=== PATIENT | female | born 1950 | race African-American/Black ===

== ENCOUNTER 2016-09-08 12:32 | Emergency (ER) | payer OTHER, MEDICARE, MEDICAID ==
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
[2016-09-08] MEDS ORDERED: OXYCODONE-ACETAMINOPHEN 5-325 MG TABLET PO ONE (13:27)
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
[2016-09-08 15:02] VITALS: BP 164/92
== END 2016-09-08 15:02 | disposition home or self-care (01) ==
LOC: ER 12:32
DX: M12.88 Other specific arthropathies, not elsewhere classified, other specified site (principal); M54.5 Low back pain; V89.0XXA Person injured in unspecified motor-vehicle accident, nontraffic, initial encounter; E78.00 Pure hypercholesterolemia, unspecified; I10 Essential (primary) hypertension; E11.9 Type 2 diabetes mellitus without complications
CPT/HCPCS: 72110; 99283

== ENCOUNTER → 2016-09-08 | Outpatient (CLI) | payer MEDICARE, MEDICAID ==
[2016-09-08 12:12] LABS: HEMATOCRIT 39.6 % (36.0-47.0); HEMOGLOBIN 12.6 g/dL (12.0-15.5); HGB HCT DIFFERENCE -1.8; MEAN CORPUSCULAR HEMOGLOBIN 26.9 pg (27.0-33.4); MEAN CORPUSCULAR HGB CONC 31.7 g/dL (32.0-36.0); MEAN CORPUSCULAR VOLUME 85 fl (80-97); RED BLOOD COUNT 4.68 10^6/uL (3.72-5.28); RED CELL DISTRIBUTION WIDTH 15.3 % (11.5-14.0); WHITE BLOOD COUNT 9.9 10^3/uL (4.0-10.5)
[2016-09-08 12:32] LABS: ANION GAP 14 (5-19); BLOOD UREA NITROGEN 34 mg/dL (7-20); CALCIUM 9.7 mg/dL (8.4-10.2); CARBON DIOXIDE 20 mmol/L (22-30); CHLORIDE 101 mmol/L (98-107); CREATININE RESULT 1.18 mg/dL (0.52-1.25); POTASSIUM 4.7 mmol/L (3.6-5.0); SODIUM 134.5 mmol/L (137-145)
[2016-09-08 12:35] LABS: APPEARANCE,URINE CLEAR; BILIRUBIN,URINE NEGATIVE (NEGATIVE); GLUCOSE, URINE 150 mg/dL (NEGATIVE); KETONES,URINE NEGATIVE (NEGATIVE); URINE SPECIFIC GRAVITY 1.027
[2016-09-08 12:36] LABS: LEUKOCYTE ESTERASE,URINE NEGATIVE (NEGATIVE); NITRITE,URINE NEGATIVE (NEGATIVE); PROTEIN,URINE >=500 mg/dL (NEGATIVE); UROBILINOGEN,URINE NEGATIVE mg/dL (<2.0)
[2016-09-08 12:55] LABS: RBC,URINE 0-1 /HPF; WBC,URINE 0-1 /HPF
[2016-09-08 12:56] LABS: BACTERIA,URINE TRACE /HPF
[2016-09-08 13:33] LABS: GLUCOSE 465 mg/dL (75-110)
== END ==
LOC: OD 11:20
PROVIDERS: ATTEND Internal Medicine Nephrology
DX: I12.9 Hypertensive chronic kidney disease with stage 1 through stage 4 chronic kidney disease, or unspecified chronic kidney disease (principal); N18.3 Chronic kidney disease, stage 3 (moderate); E11.9 Type 2 diabetes mellitus without complications; R80.9 Proteinuria, unspecified
CPT/HCPCS: 36415; 80048; 81001; 85027

== ENCOUNTER → 2017-01-03 | Outpatient (CLI) | payer MEDICARE, MEDICAID ==
[2017-01-03 13:40] LABS: HEMOGLOBIN 13.1 g/dL (12.0-15.5); HGB HCT DIFFERENCE 0.3; MEAN CORPUSCULAR HEMOGLOBIN 28.3 pg (27.0-33.4); MEAN CORPUSCULAR HGB CONC 33.6 g/dL (32.0-36.0); MEAN CORPUSCULAR VOLUME 84 fl (80-97); RED BLOOD COUNT 4.64 10^6/uL (3.72-5.28); RED CELL DISTRIBUTION WIDTH 15.4 % (11.5-14.0); WHITE BLOOD COUNT 7.4 10^3/uL (4.0-10.5)
[2017-01-03 14:26] LABS: ANION GAP 14 (5-19); BLOOD UREA NITROGEN 38 mg/dL (7-20); CALCIUM 10.4 mg/dL (8.4-10.2); CARBON DIOXIDE 24 mmol/L (22-30); CHLORIDE 106 mmol/L (98-107); CREATININE RESULT 1.06 mg/dL (0.52-1.25); GLUCOSE 153 mg/dL (75-110); POTASSIUM 4.4 mmol/L (3.6-5.0); SODIUM 143.5 mmol/L (137-145)
[2017-01-03 15:18] LABS: APPEARANCE,URINE SLIGHTLY-CLOUDY; BILIRUBIN,URINE NEGATIVE (NEGATIVE); GLUCOSE, URINE 150 mg/dL (NEGATIVE); KETONES,URINE NEGATIVE (NEGATIVE); LEUKOCYTE ESTERASE,URINE NEGATIVE (NEGATIVE); NITRITE,URINE NEGATIVE (NEGATIVE); PROTEIN,URINE 100 mg/dL (NEGATIVE); URINE SPECIFIC GRAVITY 1.013; UROBILINOGEN,URINE NEGATIVE mg/dL (<2.0)
[2017-01-03 23:45] LABS: URINE CREATININE 66.6 mg/dL (15-278); URINE PROTEIN 128.4 mg/dL (<12)
== END ==
LOC: OD 12:42
PROVIDERS: ATTEND Physician Assistant Medical
DX: E11.22 Type 2 diabetes mellitus with diabetic chronic kidney disease (principal); I12.9 Hypertensive chronic kidney disease with stage 1 through stage 4 chronic kidney disease, or unspecified chronic kidney disease; N18.3 Chronic kidney disease, stage 3 (moderate); R80.9 Proteinuria, unspecified
CPT/HCPCS: 36415; 80048; 81001; 82570; 84156; 85027

== ENCOUNTER 2017-02-21 23:55 | Inpatient (IN) | payer MEDICARE, MEDICAID ==
[2017-02-22] MEDS ORDERED: NORMAL SALINE 1000 ML 1,000 ML IV ONE ×2 (00:01→00:26)
[2017-02-22 00:09] LABS: VENOUS BLOOD BASE EXCESS -7.5 mmol/L; VENOUS BLOOD HCO3 17.9 mmol/L (20-32); VENOUS BLOOD PCO2 36.5 mmHg (35-63); VENOUS BLOOD PH 7.31 (7.30-7.42)
[2017-02-22] MEDS ORDERED: ONDANSETRON HCL INJ/PF 4 MG/2 ML SDV IV ONE ×2 (00:15→02:09)
[2017-02-22] MEDS ORDERED: ONDANSETRON HCL INJ/PF 4 MG/2 ML SDV ONE (00:17)
[2017-02-22 00:18] LABS: HEMATOCRIT 44.4 % (36.0-47.0); HEMOGLOBIN 14.3 g/dL (12.0-15.5); HGB HCT DIFFERENCE -1.5; MEAN CORPUSCULAR HGB CONC 32.2 g/dL (32.0-36.0); MEAN CORPUSCULAR VOLUME 84 fl (80-97); RED CELL DISTRIBUTION WIDTH 15.1 % (11.5-14.0); WHITE BLOOD COUNT 12.5 10^3/uL (4.0-10.5)
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
[2017-02-22 00:27] LABS: ALANINE AMINOTRANSFERASE 44 U/L (9-52); ALBUMIN 4.5 g/dL (3.5-5.0); ALKALINE PHOSPHATASE 85 U/L (38-126); ASPARTATE AMINO TRANSFERASE 24 U/L (14-36); BILIRUBIN,DIRECT 0.5 mg/dL (0.0-0.4); BILIRUBIN,TOTAL 0.5 mg/dL (0.2-1.3); BLOOD UREA NITROGEN 28 mg/dL (7-20); CREATINE KINASE 436 U/L (30-135); CREATININE RESULT 1.67 mg/dL (0.52-1.25); GLUCOSE 340 mg/dL (75-110); POTASSIUM 3.9 mmol/L (3.6-5.0); TOTAL PROTEIN 7.7 g/dL (6.3-8.2)
[2017-02-22 00:29] LABS: ALCOHOL < 10 mg/dL (NONE DETECTED)
[2017-02-22 00:36] LABS: CARBON DIOXIDE 17 mmol/L (22-30); CHLORIDE 98 mmol/L (98-107); SODIUM 138.4 mmol/L (137-145)
[2017-02-22 00:37] LABS: ANION GAP 23 (5-19)
[2017-02-22 00:40] LABS: ABSOLUTE EOSINOPHILS# (MANUAL) 0.4 10^3/uL (0.0-0.6); BASOPHILS % (MANUAL) 1 % (0-2); EOSINOPHILS % (MANUAL) 3 % (0-6); TOTAL CELLS COUNTED 100
[2017-02-22 00:48] LABS: ANISOCYTOSIS SLIGHT; PLATELET CLUMPS PRESENT; TOXIC VACUOLATION PRESENT
[2017-02-22 00:51] LABS: POIKILOCYTOSIS SLIGHT; TEAR DROP CELLS SLIGHT
[2017-02-22 01:02] LABS: LYMPHOCYTES % (MANUAL) 70 % (13-45)
[2017-02-22 01:06] LABS: AMORPHOUS SEDIMENT,URINE TRACE /HPF; APPEARANCE,URINE SLIGHTLY-CLOUDY; BILIRUBIN,URINE NEGATIVE (NEGATIVE); GLUCOSE, URINE >=500 mg/dL (NEGATIVE); KETONES,URINE NEGATIVE (NEGATIVE); LEUKOCYTE ESTERASE,URINE NEGATIVE (NEGATIVE); NITRITE,URINE NEGATIVE (NEGATIVE); PROTEIN,URINE >=500 mg/dL (NEGATIVE); URINE SPECIFIC GRAVITY 1.026; UROBILINOGEN,URINE NEGATIVE mg/dL (<2.0)
--- NOTE | 2017-02-22 01:06 | RADIOLOGY REPORT (SQ) ---
EXAM DESCRIPTION: CHEST SINGLE VIEW CLINICAL HISTORY: 66 years, Female, altered syncope COMPARISON: None. NUMBER OF VIEWS: 1. TECHNIQUE: Frontal LIMITATIONS: None. FINDINGS: Moderate lung volumes. Prominent interstitium. Normal cardiac silhouette size. Intact bony thorax. Stable. IMPRESSION: No acute cardiopulmonary findings. 2011 [facility] [employer]- All Rights Reserved
--- NOTE | 2017-02-22 01:11 | RADIOLOGY REPORT (SQ) ---
EXAM DESCRIPTION: CT HEAD WITHOUT CLINICAL HISTORY: 66 years Female, altered mental status COMPARISON: None. TECHNIQUE: No contrast, This exam was performed according to our departmental dose-optimization program, which includes automated exposure control, adjustment of the mA and/or kV according to patient size and/or use of iterative reconstruction technique. FINDINGS: Brain parenchyma appears intact. No evidence of mass, mass effect, or midline shift. No hemorrhage or infarct. Extra-axial structures are unremarkable. IMPRESSION: No acute findings.
[2017-02-22 01:30] LABS: URINE BARBITURATES SCREEN NEGATIVE; URINE METHADONE SCREEN NEGATIVE; URINE OPIATES LOW NEGATIVE; URINE PHENCYCLIDINE SCREEN NEGATIVE
--- NOTE | 2017-02-22 03:34 | RADIOLOGY REPORT (SQ) ---
EXAM DESCRIPTION: CTA ABDOMEN/PELVIS W WO (accession [id number]), CTA CHEST (accession [id number]) CLINICAL HISTORY: 66 years Female, hypotension, flank pain, syncope COMPARISON: None. TECHNIQUE: 100 mL Omnipaque 300 IV contrast. This exam was performed according to our departmental dose-optimization program, which includes automated exposure control, adjustment of the mA and/or kV according to patient size and/or use of iterative reconstruction technique. FINDINGS: Small patchiness of bilateral lower lung barnhart with a 0.5 mm nodularity at the superior segment of the right lower lobe, image 32 of series 3. No evidence of pulmonary embolus. No significant pleural effusion or ascites. No obstruction. No evidence of appendicitis. Appendix is not discerned. CTA evaluation of the chest and abdomen is unremarkable including the pulmonary arteries, aorta, renal arteries, celiac, SMA, and LORRI. Inferior neck, axillae, mediastinum, liver, spleen, adrenals, pancreas, gallbladder, renal system, pelvic organs, vasculature, lymphatics, and mild disc desiccation appear otherwise unremarkable. Small coronary arterial calcification. IMPRESSION: 1. Minimal right lower lobar patchiness and nonsolid nodularity measuring up to 0.5 cm may indicate atypical pneumonia or atelectasis. Contrast CT chest surveillance recommended in three months. 2. Otherwise unremarkable contrast CTA of the chest, abdomen, and pelvis.
--- NOTE | 2017-02-22 03:34 | RADIOLOGY REPORT (SQ) ---
EXAM DESCRIPTION: CTA ABDOMEN/PELVIS W WO (accession [id number]), CTA CHEST (accession [id number]) CLINICAL HISTORY: 66 years Female, hypotension, flank pain, syncope COMPARISON: None. TECHNIQUE: 100 mL Omnipaque 300 IV contrast. This exam was performed according to our departmental dose-optimization program, which includes automated exposure control, adjustment of the mA and/or kV according to patient size and/or use of iterative reconstruction technique. FINDINGS: Small patchiness of bilateral lower lung barnhart with a 0.5 mm nodularity at the superior segment of the right lower lobe, image 32 of series 3. No evidence of pulmonary embolus. No significant pleural effusion or ascites. No obstruction. No evidence of appendicitis. Appendix is not discerned. CTA evaluation of the chest and abdomen is unremarkable including the pulmonary arteries, aorta, renal arteries, celiac, SMA, and LORRI. Inferior neck, axillae, mediastinum, liver, spleen, adrenals, pancreas, gallbladder, renal system, pelvic organs, vasculature, lymphatics, and mild disc desiccation appear otherwise unremarkable. Small coronary arterial calcification. IMPRESSION: 1. Minimal right lower lobar patchiness and nonsolid nodularity measuring up to 0.5 cm may indicate atypical pneumonia or atelectasis. Contrast CT chest surveillance recommended in three months. 2. Otherwise unremarkable contrast CTA of the chest, abdomen, and pelvis.
[2017-02-22] MEDS ORDERED: NALOXONE HCL INJ/PF 0.4 MG/1 ML SDV ONE (04:11)
[2017-02-22] MEDS ORDERED: GLUCAGON,HUMAN RECOMB 1 MG INJ IM PRN (04:35)
[2017-02-22] MEDS ORDERED: INSULIN REG, HUMAN 100 UNIT/ML 3 ML VIAL (PYX) IV ONE (04:35)
[2017-02-22] MEDS ORDERED: DEXTROSE 40% GEL 15 GM TUBE PO PRN ×2 (04:35)
[2017-02-22] MEDS ORDERED: DEXTROSE 50%-WATER 25 GM/50 ML DISP.SYRIN IV PRN ×2 (04:35)
[2017-02-22] MEDS ORDERED: POLYETHYLENE GLYCOL PO PRN (04:36)
[2017-02-22] MEDS ORDERED: MAG HYDROX/AL HYDROX/SIMETH SUSP 30 ML UDCUP PO PRN ×2 (04:39→07:30)
[2017-02-22] MEDS ORDERED: MAGNESIUM HYDROXIDE SUSP 30 ML UDCUP PO PRN ×2 (04:39→07:30)
[2017-02-22] MEDS ORDERED: ACETAMINOPHEN 325 MG TABLET PO PRN ×2 (04:39→07:30)
[2017-02-22] MEDS ORDERED: NALOXONE HCL INJ/PF 0.4 MG/1 ML SDV IV ONE (04:42)
[2017-02-22] MEDS ORDERED: NORMAL SALINE 1000 ML 1,000 ML IV SCH (04:45)
--- NOTE | 2017-02-22 05:04 | PDOC H&P ---
History of Present Illness Admission Date/PCP: BRENNEN CHRISTIAN MD Patient complains of: Altered mental status History of Present Illness: EDUARDA JARRELL is a 66 year old female with a past medical history of insulin dependent diabetes, asthma, hypertension and chronic pain. Patient presents with altered mental status and difficulty walking, she arrives to the emergency room with syncope. She is found lethargic, oriented 1 to have a blood pressure of 87/48, acute renal failure and hyperglycemia. She receives 2 L of normal saline resulting in systolic pressure greater than 100 and able to answer questions. She denies fever, neck stiffness, photophobia or headache. No cough, shortness of breath or chest pain. She is in no acute distress, and reveals refilling medications earlier in the day. There are no witnesses available for questioning. Past Medical History Cardiac Medical History: Reports: Hyperlipidema, Hypertension Pulmonary Medical History: Reports: Asthma Denies: Tuberculosis Endocrine Medical History: Reports: Diabetes Mellitus Type 1, Diabetes Mellitus Type 2 Psychiatric Medical History: Reports: Depression Denies: Alcohol Dependency, Tobacco Dependency Hematology: Denies: Anemia, Sickle Cell Disease Past Surgical History Past Surgical History: Reports: Appendectomy, Section - x2 Denies: Amputation Social History Information Source: Patient, [facility] Records Lives with: Spouse/Significant other Smoking Status: Unknown if Ever Smoked Frequency of Alcohol Use: None Hx Recreational Drug Use: No Drugs: None Hx Prescription Drug Abuse: No - Advance Directive Resuscitation Status: Full Code Family History Family History: CAD, COPD, DM Parental Family History Reviewed: Yes Children Family History Reviewed: Yes Sibling(s) Family History Reviewed.: Yes Medication/Allergy Home Medications: Duloxetine HCl 30 mg PO DAILY 04/03/15 Gabapentin 800 mg PO DAILY 04/03/15 Insulin Glargine,Hum.rec.anlog [Lantus Solostar] 60 unit SQ BID 04/03/15 Insulin Lispro [Humalog] 20 unit SQ ACBRKFST 04/03/15 Insulin Lispro [Humalog] 20 unit SQ ACLUNCH 04/03/15 Insulin Lispro [Humalog] 20 unit SQ ACSUPPER 04/03/15 Lisinopril 20 mg PO DAILY 04/03/15 Omeprazole [Prilosec] 40 mg PO DAILY 04/03/15 Oxycodone HCl [Oxycodone HCl 10 MG Tablet] 10 mg PO TID PRN 04/03/15 Polyethylene Glycol 3350 [Miralax] 527 gm PO DAILY PRN 04/03/15 Rosuvastatin Calcium [Crestor 10 mg Tablet] 10 mg PO DAILY 04/03/15 Atorvastatin Calcium [Lipitor 20 mg Tablet] 20 mg PO QHS #30 tablet 04/07/15 Diclofenac Sodium [Voltaren] 75 mg PO DAILY #0 04/07/15 Docusate Sodium [Colace 100 mg Capsule] 100 mg PO DAILY #60 capsule 04/07/15 Furosemide [Lasix 40 mg Tablet] 40 mg PO DAILY #60 tablet 04/07/15 Spironolactone [Aldactone 25 mg Tablet] 12.5 mg PO DAILY #30 tablet 04/07/15 Allergies/Adverse Reactions: No Known Allergies Allergy (Verified 09/08/16 12:50) Review of Systems Constitutional: ABSENT: chills, fever(s), headache(s), weight gain, weight loss Eyes: ABSENT: visual disturbances Ears: ABSENT: hearing changes Cardiovascular: ABSENT: chest pain, dyspnea on exertion, edema, orthropnea, palpitations Respiratory: ABSENT: cough, hemoptysis Gastrointestinal: PRESENT: constipation. ABSENT: abdominal pain, diarrhea, hematemesis, hematochezia, nausea, vomiting Genitourinary: ABSENT: dysuria, hematuria Musculoskeletal: PRESENT: other - Bilateral knee pain. ABSENT: joint swelling Integumentary: ABSENT: rash, wounds Neurological: ABSENT: abnormal gait, abnormal speech, confusion, dizziness, focal weakness, syncope Psychiatric: ABSENT: anxiety, depression, homidical ideation, suicidal ideation Endocrine: ABSENT: cold intolerance, heat intolerance, polydipsia, polyuria Hematologic/Lymphatic: ABSENT: easy bleeding, easy bruising Physical Exam Vital Signs: Temp Pulse Resp BP Pulse Ox 24 H 117/64 92 02/22/17 02:16 02/22/17 02:33 02/22/17 02:33 Intake & Output 02/20/17 02/21/17 02/22/17 11:59 11:59 11:59 Weight 91.8 kg General appearance: PRESENT: cooperative, disheveled, mild distress Head exam: PRESENT: atraumatic, normocephalic Eye exam: PRESENT: conjunctiva pink, EOMI, PERRLA. ABSENT: scleral icterus Ear exam: PRESENT: normal external ear exam Mouth exam: PRESENT: dry mucosa, tongue midline Neck exam: PRESENT: full ROM. ABSENT: carotid bruit, JVD, lymphadenopathy, meningismus, tenderness, thyromegaly Respiratory exam: PRESENT: crackles, prolonged expiratory phas, symmetrical. ABSENT: rales, rhonchi, wheezes Cardiovascular exam: PRESENT: RRR. ABSENT: diastolic murmur, rubs, systolic murmur Pulses: PRESENT: normal dorsalis pedis pul Vascular exam: PRESENT: normal capillary refill GI/Abdominal exam: PRESENT: diminished bowel sounds, hypoactive bowel sounds, normal bowel sounds, soft, tenderness - Left lower quadrant tenderness without guarding. ABSENT: distended, guarding, mass, organolmegaly, rebound Rectal exam: PRESENT: deferred Extremities exam: PRESENT: full ROM. ABSENT: calf tenderness, clubbing, pedal edema Neurological exam: PRESENT: altered, oriented to person, CN II-XII grossly intact. ABSENT: aphasic Skin exam: PRESENT: dry, intact, warm. ABSENT: cyanosis, rash Results Laboratory Results: 02/21/17 23:55 02/21/17 23:55 02/21/17 02/21/17 02/21/17 23:55 23:55 23:55 WBC 12.5 H RBC 5.30 H Hgb 14.3 Hct 44.4 MCV 84 MCH 27.0 MCHC 32.2 RDW 15.1 H Plt Count 255 Seg Neutrophils % Not Reportable Lymphocytes % Not Reportable Monocytes % Not Reportable Eosinophils % Not Reportable Basophils % Not Reportable Absolute Neutrophils Not Reportable Absolute Lymphocytes Not Reportable Absolute Monocytes Not Reportable Absolute Eosinophils Not Reportable Absolute Basophils Not Reportable VBG pH 7.31 VBG pCO2 36.5 VBG HCO3 17.9 L VBG Base Excess -7.5 Sodium 138.4 Potassium 3.9 Chloride 98 Carbon Dioxide 17 L Anion Gap 23 H BUN 28 H Creatinine 1.67 H Est GFR ( Amer) 37 L Est GFR (Non-Af Amer) 31 L Glucose 340 H Calcium 11.0 H Total Bilirubin 0.5 AST 24 ALT 44 Alkaline Phosphatase 85 Total Protein 7.7 Albumin 4.5 Urine Color Urine Appearance Urine pH Ur Specific [place] Urine Protein Urine Glucose (UA) Urine Ketones Urine Blood Urine Nitrite Ur Leukocyte Esterase Urine WBC (Auto) Urine RBC (Auto) 02/22/17 00:43 WBC RBC Hgb Hct MCV MCH MCHC RDW Plt Count Seg Neutrophils % Lymphocytes % Monocytes % Eosinophils % Basophils % Absolute Neutrophils Absolute Lymphocytes Absolute Monocytes Absolute Eosinophils Absolute Basophils VBG pH VBG pCO2 VBG HCO3 VBG Base Excess Sodium Potassium Chloride Carbon Dioxide Anion Gap BUN Creatinine Est GFR ( Amer) Est GFR (Non-Af Amer) Glucose Calcium Total Bilirubin AST ALT Alkaline Phosphatase Total Protein Albumin Urine Color YELLOW Urine Appearance SLIGHTLY-CLOUDY Urine pH 5.0 Ur Specific [place] 1.026 Urine Protein >=500 H Urine Glucose (UA) >=500 H Urine Ketones NEGATIVE Urine Blood SMALL H Urine Nitrite NEGATIVE Ur Leukocyte Esterase NEGATIVE Urine WBC (Auto) 5 Urine RBC (Auto) 3 02/21/17 02/21/17 23:55 23:55 Creatine Kinase 436 H Troponin I 0.024 Impressions: Head CT 02/21/17 23:59 IMPRESSION: No acute findings. Chest X-Ray 02/22/17 00:01 IMPRESSION: No acute cardiopulmonary findings. [facility] [employer]- All Rights Reserved Abdomen/Pelvis CTA 02/22/17 01:19 IMPRESSION: 1. Minimal right lower lobar patchiness and nonsolid nodularity measuring up to 0.5 cm may indicate atypical pneumonia or atelectasis. Contrast CT chest surveillance recommended in three months. 2. Otherwise unremarkable contrast CTA of the chest, abdomen, and pelvis. Chest/Abdomen CTA 02/22/17 01:19 IMPRESSION: 1. Minimal right lower lobar patchiness and nonsolid nodularity measuring up to 0.5 cm may indicate atypical pneumonia or atelectasis. Contrast CT chest surveillance recommended in three months. 2. Otherwise unremarkable contrast CTA of the chest, abdomen, and pelvis. Assessment & Plan - Diagnosis (1) Acute encephalopathy Is this a current diagnosis for this admission?: Yes Plan: Likely medication adverse reaction, hypotension with artifact patient appears intoxicated, urinalysis unremarkable trial Narcan consider Romazicon as needed, supportive measures and obtain medication reconciliation. (2) Diabetic ketoacidosis Is this a current diagnosis for this admission?: Yes Plan: Differential includes H ON K, will obtain osmolarity, serial chemistries, normal saline, electrolyte and insulin repletion. Education (3) Atypical pneumonia Is this a current diagnosis for this admission?: Yes Plan: Likely viral given lymphocyte shift, supportive measures, albuterol and Atrovent , (4) Chronic pain Is this a current diagnosis for this admission?: Yes Plan: Limit narcotics given encephalopathy. (5) Hypotension Qualifiers: Hypotension type: unspecified hypotension type Qualified Code(s): I95.9 - Hypotension, unspecified Is this a current diagnosis for this admission?: Yes Plan: Likely secondary to medication adverse reaction, nontoxic-appearing, unremarkable cardiac enzymes. IV fluid challenge and reevaluation. (6) Acute renal failure Is this a current diagnosis for this admission?: Yes Plan: Likely secondary to hypotension, gated by diabetes with proteinuria. Rehydration and reevaluation of chemistry consider nephrology consult. - Time Time Spent: 50 to 70 Minutes - Inpatient Certification Medical Necessity: Need Close Monitoring Due to Risk of Patient Decompensation
[2017-02-22 05:14] LABS: ABSOLUTE EOSINOPHILS # (AUTO) 0.1 10^3/uL (0.0-0.6); ABSOLUTE LYMPHOCYTES (AUTO) 1.9 10^3/uL (0.5-4.7); ABSOLUTE MONOCYTES (AUTO) 0.7 10^3/uL (0.1-1.4); ABSOLUTE NEUT (AUTO) 5.1 10^3/uL (1.7-8.2); BASOPHILS % (AUTO) 0.5 % (0-2); EOSINOPHILS % (AUTO) 0.9 % (0-6); HEMATOCRIT 39.8 % (36.0-47.0); HEMOGLOBIN 13.1 g/dL (12.0-15.5); HGB HCT DIFFERENCE -0.5; LYMPHOCYTES % (AUTO) 24.3 % (13-45); MEAN CORPUSCULAR HEMOGLOBIN 27.1 pg (27.0-33.4); MEAN CORPUSCULAR HGB CONC 32.8 g/dL (32.0-36.0); MEAN CORPUSCULAR VOLUME 83 fl (80-97); MONOCYTES % (AUTO) 8.5 % (3-13); RED BLOOD COUNT 4.81 10^6/uL (3.72-5.28); RED CELL DISTRIBUTION WIDTH 14.9 % (11.5-14.0); SEGMENTED NEUTROPHILS % (AUTO) 65.8 % (42-78); WHITE BLOOD COUNT 7.8 10^3/uL (4.0-10.5)
[2017-02-22] MEDS ORDERED: POLYETHYLENE GLYCOL 3350 POWDER 17 GM/1 PACKET PO PRN (05:15)
[2017-02-22 05:28] LABS: ALANINE AMINOTRANSFERASE 47 U/L (9-52); ALBUMIN 3.5 g/dL (3.5-5.0); ALKALINE PHOSPHATASE 81 U/L (38-126); ANION GAP 10 (5-19); ASPARTATE AMINO TRANSFERASE 26 U/L (14-36); BILIRUBIN,DIRECT 0.4 mg/dL (0.0-0.4); BILIRUBIN,TOTAL 0.4 mg/dL (0.2-1.3); BLOOD UREA NITROGEN 27 mg/dL (7-20); CALCIUM 9.8 mg/dL (8.4-10.2); CARBON DIOXIDE 23 mmol/L (22-30); CHLORIDE 104 mmol/L (98-107); CREATININE RESULT 1.23 mg/dL (0.52-1.25); GLUCOSE 194 mg/dL (75-110); MAGNESIUM 2.5 mg/dL (1.6-2.3); POTASSIUM 4.3 mmol/L (3.6-5.0); SODIUM 137.3 mmol/L (137-145); TOTAL PROTEIN 6.3 g/dL (6.3-8.2)
[2017-02-22] MEDS ORDERED: NALOXONE HCL INJ 2 MG/2 ML DISP.SYRIN IV ONE (06:22)
[2017-02-22] MEDS ORDERED: NALOXONE HCL INJ 2 MG/2 ML DISP.SYRIN ONE (06:24)
[2017-02-22] MEDS ORDERED: NALOXONE HCL INJ 2 MG/2 ML DISP.SYRIN IV PRN (06:50)
[2017-02-22] MEDS: HEPARIN SOD (PORCINE) 5,000 UNIT/ML 1 ML SYRINGE SUBCUT SCH ×3 (06:57→22:07)
[2017-02-22] MEDS ORDERED: INSULIN LISPRO 15 UNIT SQ SCH ×3 (08:00→16:00)
[2017-02-22] MEDS: IPRATROPIUM/ALBUTEROL 0.5-2.5 MG/3 ML AMPUL NEB SCH ×3 (08:21→23:53)
--- NOTE | 2017-02-22 09:20 | EKG REPORT ---
SEVERITY:- ABNORMAL ECG - SINUS RHYTHM LEFT BUNDLE BRANCH BLOCK : Confirmed by: Renzo Ashraf 22-Feb-2017 09:19:49
[2017-02-22] MEDS ORDERED: (PENDING PHARMACY ID) (Lisinopril [Lisinopril] 20 MG) PO SCH (10:00)
[2017-02-22] MEDS: DOCUSATE SODIUM 100 MG CAPSULE PO SCH (10:18)
[2017-02-22] MEDS: LISINOPRIL 10 MG TABLET PO SCH (10:18)
[2017-02-22] MEDS: INSULIN LISPRO 100 UNIT/ML 3 ML VIAL SUBCUT SCH (10:18)
[2017-02-22] MEDS: INSULIN GLARGINE,HUM.REC.ANLOG 300 UNIT/3 ML INSULN.PEN SUBCUT SCH ×2 (10:19→17:15)
[2017-02-22] MEDS ORDERED: INSULIN LISPRO 100 UNIT/ML 3 ML VIAL SUBCUT SCH ×2 (11:00→16:00)
[2017-02-22 11:28] LABS: ANION GAP 12 (5-19); BLOOD UREA NITROGEN 21 mg/dL (7-20); CALCIUM 8.9 mg/dL (8.4-10.2); CARBON DIOXIDE 21 mmol/L (22-30); CHLORIDE 103 mmol/L (98-107); CREATININE RESULT 1.04 mg/dL (0.52-1.25); POTASSIUM 4.2 mmol/L (3.6-5.0); SODIUM 135.7 mmol/L (137-145)
[2017-02-22 11:40] LABS: GLUCOSE 412 mg/dL (75-110)
[2017-02-22 16:03] LABS: ANION GAP 11 (5-19); BLOOD UREA NITROGEN 21 mg/dL (7-20); CALCIUM 8.7 mg/dL (8.4-10.2); CARBON DIOXIDE 22 mmol/L (22-30); CHLORIDE 106 mmol/L (98-107); CREATININE RESULT 1.16 mg/dL (0.52-1.25); GLUCOSE 395 mg/dL (75-110); SODIUM 138.5 mmol/L (137-145)
[2017-02-22] MEDS: INSULIN LISPRO 100 UNIT/ML 3 ML VIAL SUBCUT PRN ×2 (16:50→22:07)
[2017-02-22 21:12] LABS: ANION GAP 11 (5-19); BLOOD UREA NITROGEN 25 mg/dL (7-20); CALCIUM 8.9 mg/dL (8.4-10.2); CARBON DIOXIDE 20 mmol/L (22-30); CHLORIDE 106 mmol/L (98-107); CREATININE RESULT 1.19 mg/dL (0.52-1.25); POTASSIUM 4.4 mmol/L (3.6-5.0); SODIUM 136.5 mmol/L (137-145)
[2017-02-22 21:31] LABS: GLUCOSE 484 mg/dL (75-110)
[2017-02-22] MEDS: ATORVASTATIN CALCIUM 20 MG TABLET PO SCH (22:08)
[2017-02-23 01:09] LABS: ANION GAP 8 (5-19); BLOOD UREA NITROGEN 25 mg/dL (7-20); CALCIUM 9.2 mg/dL (8.4-10.2); CARBON DIOXIDE 22 mmol/L (22-30); CHLORIDE 106 mmol/L (98-107); POTASSIUM 4.1 mmol/L (3.6-5.0); SODIUM 135.9 mmol/L (137-145)
[2017-02-23 01:20] LABS: GLUCOSE 404 mg/dL (75-110)
[2017-02-23] MEDS: INSULIN LISPRO 100 UNIT/ML 3 ML VIAL SUBCUT PRN ×4 (02:02→16:48)
[2017-02-23] MEDS: HEPARIN SOD (PORCINE) 5,000 UNIT/ML 1 ML SYRINGE SUBCUT SCH ×3 (05:41→22:43)
[2017-02-23 05:43] LABS: ABSOLUTE BASOPHILS # (AUTO) 0.1 10^3/uL (0.0-0.2); ABSOLUTE EOSINOPHILS # (AUTO) 0.3 10^3/uL (0.0-0.6); ABSOLUTE LYMPHOCYTES (AUTO) 2.9 10^3/uL (0.5-4.7); ABSOLUTE MONOCYTES (AUTO) 0.4 10^3/uL (0.1-1.4); ABSOLUTE NEUT (AUTO) 2.1 10^3/uL (1.7-8.2); BASOPHILS % (AUTO) 1.1 % (0-2); EOSINOPHILS % (AUTO) 4.7 % (0-6); HEMATOCRIT 37.5 % (36.0-47.0); HEMOGLOBIN 12.3 g/dL (12.0-15.5); HGB HCT DIFFERENCE -0.6; LYMPHOCYTES % (AUTO) 50.9 % (13-45); MEAN CORPUSCULAR HEMOGLOBIN 27.6 pg (27.0-33.4); MEAN CORPUSCULAR HGB CONC 32.8 g/dL (32.0-36.0); MEAN CORPUSCULAR VOLUME 84 fl (80-97); MONOCYTES % (AUTO) 6.6 % (3-13); RED BLOOD COUNT 4.46 10^6/uL (3.72-5.28); RED CELL DISTRIBUTION WIDTH 15.4 % (11.5-14.0); SEGMENTED NEUTROPHILS % (AUTO) 36.7 % (42-78); WHITE BLOOD COUNT 5.6 10^3/uL (4.0-10.5)
[2017-02-23 06:07] LABS: ANION GAP 9 (5-19); BLOOD UREA NITROGEN 23 mg/dL (7-20); CALCIUM 9.1 mg/dL (8.4-10.2); CARBON DIOXIDE 23 mmol/L (22-30); CHLORIDE 107 mmol/L (98-107); CREATININE RESULT 1.14 mg/dL (0.52-1.25); GLUCOSE 339 mg/dL (75-110); MAGNESIUM 2.3 mg/dL (1.6-2.3); POTASSIUM 3.7 mmol/L (3.6-5.0); SODIUM 139.3 mmol/L (137-145)
[2017-02-23] MEDS: IPRATROPIUM/ALBUTEROL 0.5-2.5 MG/3 ML AMPUL NEB SCH ×3 (08:16→23:22)
[2017-02-23] MEDS: INSULIN LISPRO 100 UNIT/ML 3 ML VIAL SUBCUT SCH ×2 (08:52→16:47)
[2017-02-23 09:45] LABS: ANION GAP 13 (5-19); BLOOD UREA NITROGEN 21 mg/dL (7-20); CALCIUM 9.2 mg/dL (8.4-10.2); CARBON DIOXIDE 21 mmol/L (22-30); CHLORIDE 106 mmol/L (98-107); CREATININE RESULT 1.02 mg/dL (0.52-1.25); POTASSIUM 4.3 mmol/L (3.6-5.0); SODIUM 140.2 mmol/L (137-145)
[2017-02-23 10:00] LABS: GLUCOSE 446 mg/dL (75-110)
[2017-02-23] MEDS: INSULIN GLARGINE,HUM.REC.ANLOG 300 UNIT/3 ML INSULN.PEN SUBCUT SCH (10:11)
[2017-02-23] MEDS: LISINOPRIL 10 MG TABLET PO SCH (10:12)
[2017-02-23] MEDS: DOCUSATE SODIUM 100 MG CAPSULE PO SCH (10:12)
[2017-02-23] MEDS ORDERED: FUROSEMIDE 40 MG TABLET PO ONE (12:45)
--- NOTE | 2017-02-23 12:49 | PDOC PROGRESS REPORT ---
Subjective Progress Note for:: 02/23/17 Subjective:: Patient relates that wants her water pill to be put back. Admits has been having high blood sugars at home. Would go up to the 400s ROS All organ systems evaluated and negative except as in subjective All significant laboratories and diagnostics have been reviewed Reason For Visit: ENCEPHALOPATHY, ATYPICAL PNA, DKA, ARF CHRONIC Physical Exam Vital Signs: Temp Pulse Resp BP Pulse Ox 98.6 F 83 16 131/64 H 99 02/23/17 04:14 02/23/17 04:14 02/23/17 04:14 02/23/17 04:14 02/23/17 04:14 Intake & Output 02/21/17 02/22/17 02/23/17 06:59 06:59 06:59 Intake Total 487 Output Total 450 Balance 37 Weight 96.1 kg General appearance: PRESENT: no acute distress, cooperative, morbidly obese Head exam: PRESENT: atraumatic, normocephalic Eye exam: PRESENT: EOMI, PERRLA Ear exam: PRESENT: normal external ear exam, TM's normal bilaterally Mouth exam: PRESENT: moist Neck exam: PRESENT: full ROM. ABSENT: JVD, tenderness Respiratory exam: ABSENT: clear to auscultation rodrigue Cardiovascular exam: PRESENT: RRR. ABSENT: diastolic murmur, systolic murmur Vascular exam: PRESENT: normal capillary refill GI/Abdominal exam: PRESENT: normal bowel sounds, soft. ABSENT: ascites, distended, tenderness Extremities exam: ABSENT: joint swelling, pedal edema Neurological exam: PRESENT: alert, oriented to person, oriented to place, oriented to time, CN II-XII grossly intact Psychiatric exam: PRESENT: appropriate affect, normal mood Skin exam: PRESENT: normal color Results Laboratory Results: 02/23/17 04:45 02/23/17 04:45 02/22/17 02/22/17 02/22/17 11:06 15:30 20:45 WBC RBC Hgb Hct MCV MCH MCHC RDW Plt Count Seg Neutrophils % Lymphocytes % Monocytes % Eosinophils % Basophils % Absolute Neutrophils Absolute Lymphocytes Absolute Monocytes Absolute Eosinophils Absolute Basophils Sodium 135.7 L 138.5 136.5 L Potassium 4.2 4.0 4.4 Chloride 103 106 106 Carbon Dioxide 21 L 22 20 L Anion Gap 12 11 11 BUN 21 H 21 H 25 H Creatinine 1.04 1.16 1.19 Est GFR ( Amer) > 60 57 L 55 L Est GFR (Non-Af Amer) 53 L 47 L 46 L Glucose 412 H* 395 H 484 H* Calcium 8.9 8.7 8.9 Magnesium 02/23/17 02/23/17 02/23/17 00:48 04:45 04:45 WBC 5.6 RBC 4.46 Hgb 12.3 Hct 37.5 MCV 84 MCH 27.6 MCHC 32.8 RDW 15.4 H Plt Count 184 Seg Neutrophils % 36.7 L Lymphocytes % 50.9 H Monocytes % 6.6 Eosinophils % 4.7 Basophils % 1.1 Absolute Neutrophils 2.1 Absolute Lymphocytes 2.9 Absolute Monocytes 0.4 Absolute Eosinophils 0.3 Absolute Basophils 0.1 Sodium 135.9 L 139.3 Potassium 4.1 3.7 Chloride 106 107 Carbon Dioxide 22 23 Anion Gap 8 9 BUN 25 H 23 H Creatinine 1.20 1.14 Est GFR ( Amer) 55 L 58 L Est GFR (Non-Af Amer) 45 L 48 L Glucose 404 H* 339 H Calcium 9.2 9.1 Magnesium 2.3 Impressions: Head CT 02/21/17 23:59 IMPRESSION: No acute findings. Chest X-Ray 02/22/17 00:01 IMPRESSION: No acute cardiopulmonary findings. 2011 [employer]- All Rights Reserved Abdomen/Pelvis CTA 02/22/17 01:19 IMPRESSION: 1. Minimal right lower lobar patchiness and nonsolid nodularity measuring up to 0.5 cm may indicate atypical pneumonia or atelectasis. Contrast CT chest surveillance recommended in three months. 2. Otherwise unremarkable contrast CTA of the chest, abdomen, and pelvis. Chest/Abdomen CTA 02/22/17 01:19 IMPRESSION: 1. Minimal right lower lobar patchiness and nonsolid nodularity measuring up to 0.5 cm may indicate atypical pneumonia or atelectasis. Contrast CT chest surveillance recommended in three months. 2. Otherwise unremarkable contrast CTA of the chest, abdomen, and pelvis. Assessment & Plan - Diagnosis (1) Uncontrolled diabetes mellitus Qualifiers: Diabetes mellitus type: type 2 Diabetes mellitus complication status: with hyperglycemia Diabetes mellitus fdc insulin use: with termite technician use Qualified Code(s): E11.65 - Type 2 diabetes mellitus with hyperglycemia; Z79.4 - intermediate teacher (current) use of insulin; Z79.4 - intermediate teacher (current) use of insulin ; Z79.4 - custodial (current) use of insulin; Z79.4 - intermediate teacher (current) use of insulin Is this a current diagnosis for this admission?: Yes Plan: Appears to be long-standing problem. Will increase Lantus and Humalog dose. Will change bedside glucose 2 every 4 hours and will continue with sliding scale (2) Acute encephalopathy Is this a current diagnosis for this admission?: Yes (3) Acute renal failure Qualifiers: Acute renal failure type: unspecified Qualified Code(s): N17.9 - Acute kidney failure, unspecified Is this a current diagnosis for this admission?: Yes Plan: Likely secondary to hypotension and dehydration in the setting of uncontrolled diabetes mellitus. Improved. Trend (4) Atypical pneumonia Is this a current diagnosis for this admission?: Yes (5) Chronic pain Qualifiers: Chronic pain type: chronic pain syndrome Qualified Code(s): G89.4 - Chronic pain syndrome Is this a current diagnosis for this admission?: Yes Plan: Patient alleges that she has not been taking more medication than usual. (6) Hypotension Qualifiers: Hypotension type: unspecified hypotension type Qualified Code(s): I95.9 - Hypotension, unspecified Is this a current diagnosis for this admission?: Yes (7) Hypoxia Is this a current diagnosis for this admission?: Yes Plan: Resolved. Discontinue oxygen. Patient states that she does not use oxygen at home. Hypoxia seem to be acute and likely due to opioid use (8) Metabolic acidosis Is this a current diagnosis for this admission?: Yes Plan: Patient not in DKA and likely since procuring may be due to renal tubular acidosis (9) Episode of syncope Qualifiers: Syncope type: unspecified Qualified Code(s): R55 - Syncope and collapse Is this a current diagnosis for this admission?: Yes Plan: Orthostatic. Likely secondary to volume depletion - Time Time Spent with patient: 15-24 minutes Medications reviewed and adjusted accordingly: Yes Anticipated discharge: Home Within: within 48 hours - Inpatient Certification Based on my medical assessment, after consideration of the patient's comorbidities, presenting symptoms, or acuity I expect that the services needed warrant INPATIENT care.: Yes I certify that my determination is in accordance with my understanding of Medicare's requirements for reasonable and necessary INPATIENT services [42 CFR 412.3e].: Yes Medical Necessity: Need Close Monitoring Due to Risk of Patient Decompensation
[2017-02-23] MEDS: FUROSEMIDE 40 MG TABLET PO SCH (12:53)
--- NOTE | 2017-02-23 14:07 | RADIOLOGY REPORT (SQ) ---
EXAM DESCRIPTION: CHEST PA/LAT COMPLETED DATE/TIME: 02/23/2017 1:45 pm REASON FOR STUDY: follow up COMPARISON: CTA chest dated 02/22/2017 EXAM PARAMETERS: NUMBER OF VIEWS: two views TECHNIQUE: Digital Frontal and Lateral radiographic views of the chest acquired. RADIATION DOSE: NA LIMITATIONS: none FINDINGS: LUNGS AND PLEURA: No opacities, masses or pneumothorax. No pleural effusion. The previous ly described minimal right lower lobe patchiness and non solid nodularity is not identified. MEDIASTINUM AND HILAR STRUCTURES: No masses or contour abnormalities. HEART AND VASCULAR STRUCTURES: Heart normal size. No evidence for failure. BONES: No acute findings. HARDWARE: None in the chest. OTHER: No other significant finding. IMPRESSION: NO SIGNIFICANT RADIOGRAPHIC FINDING IN THE CHEST. TECHNICAL DOCUMENTATION: JOB ID: [id number] [employer]- All Rights Reserved
[2017-02-23] MEDS: PREGABALIN 100 MG CAPSULE PO SCH ×2 (14:16→22:43)
[2017-02-23 14:54] LABS: ANION GAP 10 (5-19); BLOOD UREA NITROGEN 19 mg/dL (7-20); CALCIUM 9.7 mg/dL (8.4-10.2); CARBON DIOXIDE 23 mmol/L (22-30); CHLORIDE 105 mmol/L (98-107); CREATININE RESULT 0.97 mg/dL (0.52-1.25); GLUCOSE 278 mg/dL (75-110); SODIUM 138.2 mmol/L (137-145)
[2017-02-23 17:02] LABS: ANION GAP 9 (5-19); BLOOD UREA NITROGEN 20 mg/dL (7-20); CALCIUM 9.3 mg/dL (8.4-10.2); CARBON DIOXIDE 22 mmol/L (22-30); CHLORIDE 108 mmol/L (98-107); CREATININE RESULT 0.95 mg/dL (0.52-1.25); GLUCOSE 204 mg/dL (75-110); POTASSIUM 3.7 mmol/L (3.6-5.0); SODIUM 139.2 mmol/L (137-145)
[2017-02-23 21:20] LABS: ANION GAP 8 (5-19); BLOOD UREA NITROGEN 20 mg/dL (7-20); CALCIUM 9.3 mg/dL (8.4-10.2); CARBON DIOXIDE 24 mmol/L (22-30); CHLORIDE 109 mmol/L (98-107); CREATININE RESULT 0.97 mg/dL (0.52-1.25); GLUCOSE 134 mg/dL (75-110); POTASSIUM 3.4 mmol/L (3.6-5.0); SODIUM 140.7 mmol/L (137-145)
[2017-02-23] MEDS: ATORVASTATIN CALCIUM 20 MG TABLET PO SCH (22:42)
[2017-02-24] MEDS ORDERED: INSULIN GLARGINE,HUM.REC.ANLOG 300 UNIT/3 ML INSULN.PEN SUBCUT ONE (00:45)
[2017-02-24 01:05] LABS: ANION GAP 7 (5-19); BLOOD UREA NITROGEN 19 mg/dL (7-20); CALCIUM 9.6 mg/dL (8.4-10.2); CARBON DIOXIDE 24 mmol/L (22-30); CHLORIDE 109 mmol/L (98-107); CREATININE RESULT 0.99 mg/dL (0.52-1.25); GLUCOSE 140 mg/dL (75-110); POTASSIUM 3.6 mmol/L (3.6-5.0); SODIUM 140.1 mmol/L (137-145)
[2017-02-24 04:58] LABS: ABSOLUTE EOSINOPHILS # (AUTO) 0.3 10^3/uL (0.0-0.6); ABSOLUTE LYMPHOCYTES (AUTO) 2.5 10^3/uL (0.5-4.7); ABSOLUTE MONOCYTES (AUTO) 0.5 10^3/uL (0.1-1.4); ABSOLUTE NEUT (AUTO) 2.1 10^3/uL (1.7-8.2); BASOPHILS % (AUTO) 0.6 % (0-2); EOSINOPHILS % (AUTO) 5.6 % (0-6); HEMATOCRIT 35.9 % (36.0-47.0); HEMOGLOBIN 11.7 g/dL (12.0-15.5); HGB HCT DIFFERENCE -0.8; LYMPHOCYTES % (AUTO) 46.3 % (13-45); MEAN CORPUSCULAR HEMOGLOBIN 27.2 pg (27.0-33.4); MEAN CORPUSCULAR HGB CONC 32.7 g/dL (32.0-36.0); MEAN CORPUSCULAR VOLUME 83 fl (80-97); MONOCYTES % (AUTO) 8.5 % (3-13); RED BLOOD COUNT 4.32 10^6/uL (3.72-5.28); RED CELL DISTRIBUTION WIDTH 15.2 % (11.5-14.0); WHITE BLOOD COUNT 5.5 10^3/uL (4.0-10.5)
[2017-02-24 05:21] LABS: ANION GAP 12 (5-19); BLOOD UREA NITROGEN 20 mg/dL (7-20); CALCIUM 9.1 mg/dL (8.4-10.2); CARBON DIOXIDE 20 mmol/L (22-30); CHLORIDE 110 mmol/L (98-107); CREATININE RESULT 0.97 mg/dL (0.52-1.25); GLUCOSE 263 mg/dL (75-110); POTASSIUM 3.9 mmol/L (3.6-5.0); SODIUM 141.9 mmol/L (137-145)
[2017-02-24] MEDS: PREGABALIN 100 MG CAPSULE PO SCH ×3 (05:45→22:12)
[2017-02-24] MEDS: HEPARIN SOD (PORCINE) 5,000 UNIT/ML 1 ML SYRINGE SUBCUT SCH ×3 (05:45→22:14)
[2017-02-24] MEDS: IPRATROPIUM/ALBUTEROL 0.5-2.5 MG/3 ML AMPUL NEB SCH ×3 (08:02→23:14)
[2017-02-24] MEDS: INSULIN LISPRO 100 UNIT/ML 3 ML VIAL SUBCUT SCH ×3 (08:46→16:54)
[2017-02-24 09:28] LABS: ANION GAP 9 (5-19); BLOOD UREA NITROGEN 18 mg/dL (7-20); CALCIUM 9.5 mg/dL (8.4-10.2); CARBON DIOXIDE 23 mmol/L (22-30); CHLORIDE 108 mmol/L (98-107); CREATININE RESULT 0.93 mg/dL (0.52-1.25); GLUCOSE 309 mg/dL (75-110); SODIUM 140.2 mmol/L (137-145)
[2017-02-24] MEDS ORDERED: SORBITOL 70% SOLUTION 30 ML UDC PO PRN (10:30)
[2017-02-24] MEDS: LISINOPRIL 10 MG TABLET PO SCH ×2 (11:23→22:13)
[2017-02-24] MEDS: DOCUSATE SODIUM 100 MG CAPSULE PO SCH (11:23)
[2017-02-24] MEDS: INSULIN GLARGINE,HUM.REC.ANLOG 300 UNIT/3 ML INSULN.PEN SUBCUT SCH ×2 (11:24→22:14)
[2017-02-24 13:37] LABS: ANION GAP 9 (5-19); BLOOD UREA NITROGEN 20 mg/dL (7-20); CALCIUM 9.7 mg/dL (8.4-10.2); CARBON DIOXIDE 24 mmol/L (22-30); CHLORIDE 106 mmol/L (98-107); CREATININE RESULT 0.85 mg/dL (0.52-1.25); GLUCOSE 315 mg/dL (75-110); SODIUM 139.4 mmol/L (137-145)
[2017-02-24] MEDS ORDERED: (PENDING PHARMACY ID) (Budesonide [Pulmicort 180 Mcg Flexhaler] 1 PUFF) IH PRN (15:22)
[2017-02-24] MEDS ORDERED: OXYCODONE HCL IR 5 MG TABLET PO PRN (15:29)
[2017-02-24] MEDS ORDERED: FLUTICASONE PROPIONATE HFA 110 MCG/PUFF 12 GM MDI IH PRN (15:32)
--- NOTE | 2017-02-24 15:39 | PDOC PROGRESS REPORT ---
Subjective Progress Note for:: 02/24/17 Subjective:: Complains of constipation. Her will bring all her medications. Was notified by nurse that Lantus was held last night out of concern of hypoglycemia since patient's blood sugar was and the 100s. ROS All organ systems evaluated and negative except as in subjective All significant laboratories and diagnostics have been reviewed Reason For Visit: ENCEPHALOPATHY, ATYPICAL PNA, DKA, ARF CHRONIC Physical Exam Vital Signs: Temp Pulse Resp BP Pulse Ox 98.3 F 85 14 163/84 H 96 02/24/17 11:13 02/24/17 15:12 02/24/17 15:12 02/24/17 11:13 02/24/17 11:13 Intake & Output 02/23/17 02/24/17 02/25/17 06:59 06:59 06:59 Intake Total 887 2417 472 Output Total 450 5 Balance 437 2412 472 Weight 96.1 kg 94.7 kg General appearance: PRESENT: no acute distress, cooperative, morbidly obese Head exam: PRESENT: atraumatic, normocephalic Eye exam: PRESENT: conjunctiva pink, EOMI, PERRLA Mouth exam: PRESENT: moist, neck supple Neck exam: PRESENT: full ROM. ABSENT: JVD, tenderness Respiratory exam: PRESENT: clear to auscultation rodrigue Cardiovascular exam: PRESENT: RRR. ABSENT: diastolic murmur, systolic murmur Vascular exam: PRESENT: normal capillary refill GI/Abdominal exam: PRESENT: normal bowel sounds, soft, tenderness. ABSENT: distended Extremities exam: ABSENT: joint swelling, pedal edema Musculoskeletal exam: PRESENT: full ROM Neurological exam: PRESENT: alert, oriented to person, oriented to place, CN II- XII grossly intact Skin exam: PRESENT: normal color Results Laboratory Results: 02/24/17 04:48 02/24/17 12:53 02/23/17 02/23/17 02/24/17 16:37 20:48 00:40 WBC RBC Hgb Hct MCV MCH MCHC RDW Plt Count Seg Neutrophils % Lymphocytes % Monocytes % Eosinophils % Basophils % Absolute Neutrophils Absolute Lymphocytes Absolute Monocytes Absolute Eosinophils Absolute Basophils Sodium 139.2 140.7 140.1 Potassium 3.7 3.4 L 3.6 Chloride 108 H 109 H 109 H Carbon Dioxide 22 24 24 Anion Gap 9 8 7 BUN 20 20 19 Creatinine 0.95 0.97 0.99 Est GFR ( Amer) > 60 > 60 > 60 Est GFR (Non-Af Amer) 59 L 58 L 56 L Glucose 204 H 134 H 140 H Calcium 9.3 9.3 9.6 02/24/17 02/24/17 02/24/17 04:48 04:48 08:41 WBC 5.5 RBC 4.32 Hgb 11.7 L Hct 35.9 L MCV 83 MCH 27.2 MCHC 32.7 RDW 15.2 H Plt Count 165 Seg Neutrophils % 39.0 L Lymphocytes % 46.3 H Monocytes % 8.5 Eosinophils % 5.6 Basophils % 0.6 Absolute Neutrophils 2.1 Absolute Lymphocytes 2.5 Absolute Monocytes 0.5 Absolute Eosinophils 0.3 Absolute Basophils 0.0 Sodium 141.9 140.2 Potassium 3.9 4.0 Chloride 110 H 108 H Carbon Dioxide 20 L 23 Anion Gap 12 9 BUN 20 18 Creatinine 0.97 0.93 Est GFR ( Amer) > 60 > 60 Est GFR (Non-Af Amer) 58 L > 60 Glucose 263 H 309 H Calcium 9.1 9.5 02/24/17 12:53 WBC RBC Hgb Hct MCV MCH MCHC RDW Plt Count Seg Neutrophils % Lymphocytes % Monocytes % Eosinophils % Basophils % Absolute Neutrophils Absolute Lymphocytes Absolute Monocytes Absolute Eosinophils Absolute Basophils Sodium 139.4 Potassium 4.0 Chloride 106 Carbon Dioxide 24 Anion Gap 9 BUN 20 Creatinine 0.85 Est GFR ( Amer) > 60 Est GFR (Non-Af Amer) > 60 Glucose 315 H Calcium 9.7 Impressions: Head CT 02/21/17 23:59 IMPRESSION: No acute findings. Abdomen/Pelvis CTA 02/22/17 01:19 IMPRESSION: 1. Minimal right lower lobar patchiness and nonsolid nodularity measuring up to 0.5 cm may indicate atypical pneumonia or atelectasis. Contrast CT chest surveillance recommended in three months. 2. Otherwise unremarkable contrast CTA of the chest, abdomen, and pelvis. Chest/Abdomen CTA 02/22/17 01:19 IMPRESSION: 1. Minimal right lower lobar patchiness and nonsolid nodularity measuring up to 0.5 cm may indicate atypical pneumonia or atelectasis. Contrast CT chest surveillance recommended in three months. 2. Otherwise unremarkable contrast CTA of the chest, abdomen, and pelvis. Chest X-Ray 12/08/17 00:00 IMPRESSION: NO SIGNIFICANT RADIOGRAPHIC FINDING IN THE CHEST. 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 We will continue with Lantus 65 units twice daily. Nurse has been instructed as to give a call with a blood sugar before leaving the shift in order to determine if may need to adjust p.m. Lantus dose. Will request bedside glucose at 2 AM daily when the risk of hypoglycemia is the highest. Will change bedside glucose to before meals and at bedtime. Will continue with pre-meal Humalog 20 units subcu as outpatient also will continue with sliding scale. (2) Acute encephalopathy Is this a current diagnosis for this admission?: Yes Plan: Multifactorial and improving. Will order ABG (3) Acute renal failure Qualifiers: Acute renal failure type: unspecified Qualified Code(s): N17.9 - Acute kidney failure, unspecified Is this a current diagnosis for this admission?: Yes Plan: Likely secondary to hypotension and dehydration in the setting of uncontrolled diabetes mellitus. Resolved (4) Atypical pneumonia Is this a current diagnosis for this admission?: Yes Plan: No further intervention likely viral. Will repeat chest x-ray (5) Chronic pain Qualifiers: Chronic pain type: chronic pain syndrome Qualified Code(s): G89.4 - Chronic pain syndrome Is this a current diagnosis for this admission?: Yes Plan: Patient alleges that she has not been taking more medication than usual.Continue Lyrica as outpatient (6) Hypotension Qualifiers: Hypotension type: unspecified hypotension type Qualified Code(s): I95.9 - Hypotension, unspecified Is this a current diagnosis for this admission?: Yes Plan: Resolved and to restart lisinopril as outpatient (7) Hypoxia Is this a current diagnosis for this admission?: Yes Plan: Resolved. Discontinue oxygen. Patient states that she does not use oxygen at home. Hypoxia seem to be acute and likely due to opioid use (8) Metabolic acidosis Is this a current diagnosis for this admission?: Yes Plan: Patient not in DKA . There is a good possibility that patient is a MELINDA. Resolved (9) Episode of syncope Qualifiers: Syncope type: unspecified Qualified Code(s): R55 - Syncope and collapse Is this a current diagnosis for this admission?: Yes Plan: Orthostatic. Likely secondary to volume depletion (10) HTN (hypertension) Qualifiers: Hypertension type: essential hypertension Qualified Code(s): I10 - Essential (primary) hypertension Is this a current diagnosis for this admission?: Yes Plan: Continue lisinopril and add Norvasc - Time Time Spent with patient: 15-24 minutes Medications reviewed and adjusted accordingly: Yes Anticipated discharge: Home Within: within 48 hours - Inpatient Certification Based on my medical assessment, after consideration of the patient's comorbidities, presenting symptoms, or acuity I expect that the services needed warrant INPATIENT care.: Yes I certify that my determination is in accordance with my understanding of Medicare's requirements for reasonable and necessary INPATIENT services [42 CFR 412.3e].: Yes Medical Necessity: Need Close Monitoring Due to Risk of Patient Decompensation
[2017-02-24] MEDS ORDERED: AMLODIPINE BESYLATE 5 MG TABLET PO ONE (16:00)
--- NOTE | 2017-02-24 16:23 | RADIOLOGY REPORT (SQ) ---
EXAM DESCRIPTION: CHEST PA/LAT COMPLETED DATE/TIME: 02/24/2017 4:16 pm REASON FOR STUDY: follow up COMPARISON: None. EXAM PARAMETERS: NUMBER OF VIEWS: two views TECHNIQUE: Digital Frontal and Lateral radiographic views of the chest acquired. RADIATION DOSE: NA LIMITATIONS: none FINDINGS: LUNGS AND PLEURA: Patchy bibasilar airspace opacities, left greater than right. No signif icant pleural effusion or pneumothorax. MEDIASTINUM AND HILAR STRUCTURES: No masses or contour abnormalities. HEART AND VASCULAR STRUCTURES: Heart normal size. No evidence for failure. BONES: No acute findings. HARDWARE: None in the chest. OTHER: No other significant finding. IMPRESSION: PATCHY BIBASILAR AIRSPACE OPACITIES MAY REPRESENT SUBSEGMENTAL ATELECTASIS, ASPIRATION, OR DEVELOPING PNEUMONIA. TECHNICAL DOCUMENTATION: JOB ID: [id number] [employer]- All Rights Reserved
[2017-02-24 18:04] LABS: ARTERIAL BLOOD BASE EXCESS -1.9 mmol/L; ARTERIAL BLOOD O2 SATURATION 91.2 % (94-98)
[2017-02-24 18:19] LABS: ANION GAP 14 (5-19); BLOOD UREA NITROGEN 20 mg/dL (7-20); CALCIUM 9.4 mg/dL (8.4-10.2); CARBON DIOXIDE 22 mmol/L (22-30); CHLORIDE 101 mmol/L (98-107); CREATININE RESULT 1.01 mg/dL (0.52-1.25); POTASSIUM 3.8 mmol/L (3.6-5.0); SODIUM 136.5 mmol/L (137-145)
[2017-02-24 18:30] LABS: GLUCOSE 405 mg/dL (75-110)
[2017-02-24] MEDS ORDERED: ATORVASTATIN CALCIUM 20 MG TABLET PO SCH (22:00)
[2017-02-24] MEDS ORDERED: (PENDING PHARMACY ID) (Lisinopril [Zestril] 20 MG) PO SCH (22:00)
[2017-02-24] MEDS ORDERED: PREGABALIN 50 MG CAPSULE PO SCH (22:00)
[2017-02-24] MEDS: GABAPENTIN 400 MG CAPSULE PO SCH (22:12)
[2017-02-24] MEDS: ATORVASTATIN CALCIUM 20 MG TABLET PO SCH (22:13)
[2017-02-24] MEDS: AMLODIPINE BESYLATE 5 MG TABLET PO SCH (22:14)
[2017-02-24] MEDS: INSULIN LISPRO 100 UNIT/ML 3 ML VIAL SUBCUT PRN (22:14)
[2017-02-24 22:35] LABS: ANION GAP 14 (5-19); BLOOD UREA NITROGEN 22 mg/dL (7-20); CALCIUM 9.6 mg/dL (8.4-10.2); CARBON DIOXIDE 25 mmol/L (22-30); CHLORIDE 101 mmol/L (98-107); CREATININE RESULT 1.05 mg/dL (0.52-1.25); GLUCOSE 394 mg/dL (75-110); POTASSIUM 3.7 mmol/L (3.6-5.0); SODIUM 139.5 mmol/L (137-145)
[2017-02-25 03:10] LABS: ANION GAP 12 (5-19); BLOOD UREA NITROGEN 23 mg/dL (7-20); CALCIUM 9.2 mg/dL (8.4-10.2); CARBON DIOXIDE 23 mmol/L (22-30); CHLORIDE 105 mmol/L (98-107); CREATININE RESULT 0.99 mg/dL (0.52-1.25); GLUCOSE 358 mg/dL (75-110); POTASSIUM 3.8 mmol/L (3.6-5.0); SODIUM 140.2 mmol/L (137-145)
[2017-02-25] MEDS: LANSOPRAZOLE 30 MG TAB.RAP.DR PO SCH (05:43)
[2017-02-25] MEDS: PREGABALIN 100 MG CAPSULE PO SCH ×3 (05:43→22:56)
[2017-02-25] MEDS: GABAPENTIN 400 MG CAPSULE PO SCH ×3 (05:43→22:55)
[2017-02-25] MEDS: HEPARIN SOD (PORCINE) 5,000 UNIT/ML 1 ML SYRINGE SUBCUT SCH ×3 (05:44→22:57)
[2017-02-25 07:39] LABS: ABSOLUTE BASOPHILS # (AUTO) 0.1 10^3/uL (0.0-0.2); ABSOLUTE EOSINOPHILS # (AUTO) 0.3 10^3/uL (0.0-0.6); ABSOLUTE LYMPHOCYTES (AUTO) 1.9 10^3/uL (0.5-4.7); ABSOLUTE MONOCYTES (AUTO) 0.5 10^3/uL (0.1-1.4); ABSOLUTE NEUT (AUTO) 2.2 10^3/uL (1.7-8.2); BASOPHILS % (AUTO) 1.2 % (0-2); EOSINOPHILS % (AUTO) 5.3 % (0-6); HEMATOCRIT 36.7 % (36.0-47.0); HEMOGLOBIN 11.9 g/dL (12.0-15.5); LYMPHOCYTES % (AUTO) 37.6 % (13-45); MEAN CORPUSCULAR HEMOGLOBIN 27.2 pg (27.0-33.4); MEAN CORPUSCULAR HGB CONC 32.4 g/dL (32.0-36.0); MEAN CORPUSCULAR VOLUME 84 fl (80-97); MONOCYTES % (AUTO) 10.6 % (3-13); RED BLOOD COUNT 4.38 10^6/uL (3.72-5.28); RED CELL DISTRIBUTION WIDTH 15.3 % (11.5-14.0); SEGMENTED NEUTROPHILS % (AUTO) 45.3 % (42-78); WHITE BLOOD COUNT 4.9 10^3/uL (4.0-10.5)
[2017-02-25] MEDS: IPRATROPIUM/ALBUTEROL 0.5-2.5 MG/3 ML AMPUL NEB SCH ×2 (07:45→15:44)
[2017-02-25 07:53] LABS: ANION GAP 13 (5-19); BLOOD UREA NITROGEN 23 mg/dL (7-20); CALCIUM 9.4 mg/dL (8.4-10.2); CARBON DIOXIDE 21 mmol/L (22-30); CHLORIDE 104 mmol/L (98-107); CREATININE RESULT 0.94 mg/dL (0.52-1.25); GLUCOSE 363 mg/dL (75-110); POTASSIUM 4.1 mmol/L (3.6-5.0); SODIUM 137.7 mmol/L (137-145)
[2017-02-25] MEDS: INSULIN LISPRO 100 UNIT/ML 3 ML VIAL SUBCUT SCH ×3 (08:01→16:41)
[2017-02-25] MEDS: LISINOPRIL 10 MG TABLET PO SCH ×2 (10:39→22:56)
[2017-02-25] MEDS: INSULIN GLARGINE,HUM.REC.ANLOG 300 UNIT/3 ML INSULN.PEN SUBCUT SCH (10:40)
[2017-02-25] MEDS: FUROSEMIDE 40 MG TABLET PO SCH (10:40)
[2017-02-25] MEDS: DOCUSATE SODIUM 100 MG CAPSULE PO SCH (10:40)
[2017-02-25 11:06] LABS: ANION GAP 11 (5-19); BLOOD UREA NITROGEN 22 mg/dL (7-20); CALCIUM 9.2 mg/dL (8.4-10.2); CARBON DIOXIDE 21 mmol/L (22-30); CHLORIDE 104 mmol/L (98-107); CREATININE RESULT 0.92 mg/dL (0.52-1.25); SODIUM 136.3 mmol/L (137-145)
[2017-02-25 11:17] LABS: GLUCOSE 437 mg/dL (75-110)
[2017-02-25] MEDS ORDERED: INSULIN GLARGINE,HUM.REC.ANLOG 300 UNIT/3 ML INSULN.PEN SUBCUT SCH (14:38)
[2017-02-25] MEDS ORDERED: PIPERACILLIN/TAZOBACTAM 3.375 GM VIAL IV ONE (14:48)
--- NOTE | 2017-02-25 14:52 | PDOC PROGRESS REPORT ---
Subjective Progress Note for:: 02/25/17 Subjective:: Still have not had a good bowel movement. Patient admits that at home she uses a lot of insulin. Appointment time she was taking Lantus 100 units twice a day. ROS All organ systems evaluated and negative except as in subjective All significant laboratories and diagnostics have been reviewed Reason For Visit: ENCEPHALOPATHY, ATYPICAL PNA, DKA, ARF CHRONIC Physical Exam Vital Signs: Temp Pulse Resp BP Pulse Ox 97.4 F 91 18 135/62 H 97 02/25/17 03:21 02/25/17 03:21 02/25/17 03:21 02/25/17 03:21 02/25/17 03:21 Intake & Output 02/24/17 02/25/17 02/26/17 06:59 06:59 06:59 Intake Total 2417 1758 Output Total 5 1 Balance 2412 1757 Weight 94.7 kg 95.3 kg General appearance: PRESENT: no acute distress, cooperative, morbidly obese Head exam: PRESENT: atraumatic, normocephalic Eye exam: PRESENT: EOMI, PERRLA Ear exam: PRESENT: normal external ear exam Mouth exam: PRESENT: moist Neck exam: PRESENT: full ROM. ABSENT: JVD, tenderness Respiratory exam: PRESENT: clear to auscultation rodrigue Cardiovascular exam: PRESENT: RRR. ABSENT: diastolic murmur, systolic murmur Vascular exam: PRESENT: normal capillary refill GI/Abdominal exam: PRESENT: normal bowel sounds, soft. ABSENT: ascites, tenderness Extremities exam: ABSENT: joint swelling Musculoskeletal exam: PRESENT: full ROM Neurological exam: PRESENT: alert, oriented to person, oriented to place, oriented to time Psychiatric exam: PRESENT: appropriate affect, normal mood Skin exam: PRESENT: normal color Results Laboratory Results: 02/24/17 04:48 02/25/17 02:31 02/24/17 02/24/17 02/24/17 08:41 12:53 17:46 Carbonic Acid 1.26 HCO3/H2CO3 Ratio 18:1 ABG pH 7.37 ABG pCO2 41.8 ABG pO2 62.3 L ABG HCO3 23.4 ABG O2 Saturation 91.2 L ABG Base Excess -1.9 FiO2 21% Sodium 140.2 139.4 Potassium 4.0 4.0 Chloride 108 H 106 Carbon Dioxide 23 24 Anion Gap 9 9 BUN 18 20 Creatinine 0.93 0.85 Est GFR ( Amer) > 60 > 60 Est GFR (Non-Af Amer) > 60 > 60 Glucose 309 H 315 H Calcium 9.5 9.7 02/24/17 02/24/17 02/25/17 17:50 22:10 02:31 Carbonic Acid HCO3/H2CO3 Ratio ABG pH ABG pCO2 ABG pO2 ABG HCO3 ABG O2 Saturation ABG Base Excess FiO2 Sodium 136.5 L 139.5 140.2 Potassium 3.8 3.7 3.8 Chloride 101 101 105 Carbon Dioxide 22 25 23 Anion Gap 14 14 12 BUN 20 22 H 23 H Creatinine 1.01 1.05 0.99 Est GFR ( Amer) > 60 > 60 > 60 Est GFR (Non-Af Amer) 55 L 53 L 56 L Glucose 405 H* 394 H 358 H Calcium 9.4 9.6 9.2 Impressions: Head CT 02/21/17 23:59 IMPRESSION: No acute findings. Abdomen/Pelvis CTA 02/22/17 01:19 IMPRESSION: 1. Minimal right lower lobar patchiness and nonsolid nodularity measuring up to 0.5 cm may indicate atypical pneumonia or atelectasis. Contrast CT chest surveillance recommended in three months. 2. Otherwise unremarkable contrast CTA of the chest, abdomen, and pelvis. Chest/Abdomen CTA 02/22/17 01:19 IMPRESSION: 1. Minimal right lower lobar patchiness and nonsolid nodularity measuring up to 0.5 cm may indicate atypical pneumonia or atelectasis. Contrast CT chest surveillance recommended in three months. 2. Otherwise unremarkable contrast CTA of the chest, abdomen, and pelvis. Chest X-Ray 02/24/17 00:00 IMPRESSION: PATCHY BIBASILAR AIRSPACE OPACITIES MAY REPRESENT SUBSEGMENTAL ATELECTASIS, ASPIRATION, OR DEVELOPING PNEUMONIA. Assessment & Plan - Diagnosis (1) Uncontrolled diabetes mellitus Qualifiers: Diabetes mellitus type: type 2 Diabetes mellitus complication status: with hyperglycemia Diabetes mellitus detention insulin use: with intermodal truck driver use Qualified Code(s): E11.65 - Type 2 diabetes mellitus with hyperglycemia; Z79.4 - correction (current) use of insulin; Z79.4 - correction (current) use of insulin ; Z79.4 - terminal makeup operator (current) use of insulin; Z79.4 - terminal makeup operator (current) use of insulin Is this a current diagnosis for this admission?: Yes Plan: Appears to be long-standing problem. It is evident that patient does have a history of insulin resistance considering that he is using high-dose insulin. There is a possibility that she may also have antibodies against insulin. Will increase Lantus and pre-meal lispro. Will adjust insulin sliding scale and will check bedside glucose every 4 hours. Nurse had been alerted that an order had been given since 02/24 to check bedside glucose at 2 AM. Will like to have better control before discharging patient out of concern that she may return back dehydrated and confused (2) Acute encephalopathy Is this a current diagnosis for this admission?: Yes Plan: Multifactorial and improving. Mildly decreased oxygen but otherwise no need for supplementation (3) Acute renal failure Qualifiers: Acute renal failure type: unspecified Qualified Code(s): N17.9 - Acute kidney failure, unspecified Is this a current diagnosis for this admission?: Yes Plan: Likely secondary to hypotension and dehydration in the setting of uncontrolled diabetes mellitus. Resolved (4) Atypical pneumonia Is this a current diagnosis for this admission?: Yes Plan: Chest x-ray results noted and will start IV antibiotic to cover possibility of aspiration pneumonia (5) Chronic pain Qualifiers: Chronic pain type: chronic pain syndrome Qualified Code(s): G89.4 - Chronic pain syndrome Is this a current diagnosis for this admission?: Yes Plan: Patient alleges that she has not been taking more medication than usual.Continue Lyrica as outpatient (6) Hypotension Qualifiers: Hypotension type: unspecified hypotension type Qualified Code(s): I95.9 - Hypotension, unspecified Is this a current diagnosis for this admission?: Yes Plan: Resolved. Continue lisinopril as outpatient (7) Hypoxia Is this a current diagnosis for this admission?: Yes Plan: Resolved. ABG noted. Chest x-ray concerning about possible pneumonic process and to start antibiotic treatment. This patient at this time does not need oxygen supplementation (8) Metabolic acidosis Is this a current diagnosis for this admission?: Yes Plan: Patient not in DKA . There is a good possibility that patient is a MELINDA. Resolved (9) Episode of syncope Qualifiers: Syncope type: unspecified Qualified Code(s): R55 - Syncope and collapse Is this a current diagnosis for this admission?: Yes Plan: Orthostatic. Likely secondary to volume depletion (10) HTN (hypertension) Qualifiers: Hypertension type: essential hypertension Qualified Code(s): I10 - Essential (primary) hypertension Is this a current diagnosis for this admission?: Yes Plan: Continue lisinopril and Norvasc - Time Time Spent with patient: 15-24 minutes Medications reviewed and adjusted accordingly: Yes Anticipated discharge: Home Within: within 48 hours - Inpatient Certification Based on my medical assessment, after consideration of the patient's comorbidities, presenting symptoms, or acuity I expect that the services needed warrant INPATIENT care.: Yes Medical Necessity: Need Close Monitoring Due to Risk of Patient Decompensation, Need for IV Antibiotics
[2017-02-25 15:35] LABS: ANION GAP 12 (5-19); BLOOD UREA NITROGEN 20 mg/dL (7-20); CALCIUM 9.5 mg/dL (8.4-10.2); CARBON DIOXIDE 23 mmol/L (22-30); CHLORIDE 104 mmol/L (98-107); CREATININE RESULT 1.07 mg/dL (0.52-1.25); GLUCOSE 328 mg/dL (75-110); POTASSIUM 4.3 mmol/L (3.6-5.0); SODIUM 139.3 mmol/L (137-145)
[2017-02-25] MEDS ORDERED: LACTULOSE SYRUP 20 GM/30 ML UDCUP PO ONE (16:00)
[2017-02-25] MEDS: PIPERACILLIN SODIUM/TAZOBACTAM 3.375 GM in NORMAL SALINE 100 ML IV SCH ×2 (18:41→23:30)
[2017-02-25 18:44] LABS: ANION GAP 12 (5-19); BLOOD UREA NITROGEN 19 mg/dL (7-20); CALCIUM 9.6 mg/dL (8.4-10.2); CARBON DIOXIDE 23 mmol/L (22-30); CHLORIDE 104 mmol/L (98-107); CREATININE RESULT 1.06 mg/dL (0.52-1.25); GLUCOSE 338 mg/dL (75-110); POTASSIUM 3.7 mmol/L (3.6-5.0)
[2017-02-25 22:40] LABS: ANION GAP 11 (5-19); BLOOD UREA NITROGEN 19 mg/dL (7-20); CALCIUM 9.2 mg/dL (8.4-10.2); CARBON DIOXIDE 23 mmol/L (22-30); CHLORIDE 105 mmol/L (98-107); CREATININE RESULT 0.98 mg/dL (0.52-1.25); GLUCOSE 274 mg/dL (75-110); POTASSIUM 3.7 mmol/L (3.6-5.0); SODIUM 139.2 mmol/L (137-145)
[2017-02-25] MEDS: ATORVASTATIN CALCIUM 20 MG TABLET PO SCH (22:55)
[2017-02-25] MEDS: INSULIN GLARGINE,HUM.REC.ANLOG 1,000 UNIT/10 ML UNIT SUBCUT SCH (22:56)
[2017-02-25] MEDS: INSULIN LISPRO 100 UNIT/ML 3 ML VIAL SUBCUT PRN (22:56)
[2017-02-25] MEDS: AMLODIPINE BESYLATE 5 MG TABLET PO SCH (22:57)
[2017-02-26] MEDS: IPRATROPIUM/ALBUTEROL 0.5-2.5 MG/3 ML AMPUL NEB SCH ×3 (00:22→16:34)
[2017-02-26] MEDS: INSULIN LISPRO 100 UNIT/ML 3 ML VIAL SUBCUT PRN ×2 (02:44→20:41)
[2017-02-26 03:09] LABS: ANION GAP 10 (5-19); BLOOD UREA NITROGEN 19 mg/dL (7-20); CALCIUM 9.1 mg/dL (8.4-10.2); CARBON DIOXIDE 24 mmol/L (22-30); CHLORIDE 107 mmol/L (98-107); CREATININE RESULT 1.02 mg/dL (0.52-1.25); GLUCOSE 269 mg/dL (75-110); POTASSIUM 3.8 mmol/L (3.6-5.0); SODIUM 140.8 mmol/L (137-145)
[2017-02-26] MEDS: GABAPENTIN 400 MG CAPSULE PO SCH ×3 (05:14→20:42)
[2017-02-26] MEDS: PREGABALIN 100 MG CAPSULE PO SCH ×3 (05:15→20:42)
[2017-02-26] MEDS: LANSOPRAZOLE 30 MG TAB.RAP.DR PO SCH (05:15)
[2017-02-26] MEDS: HEPARIN SOD (PORCINE) 5,000 UNIT/ML 1 ML SYRINGE SUBCUT SCH ×3 (05:15→20:42)
[2017-02-26] MEDS: PIPERACILLIN SODIUM/TAZOBACTAM 3.375 GM in NORMAL SALINE 100 ML IV SCH ×3 (05:16→17:53)
[2017-02-26 07:17] LABS: ANION GAP 11 (5-19); BLOOD UREA NITROGEN 19 mg/dL (7-20); CALCIUM 9.1 mg/dL (8.4-10.2); CARBON DIOXIDE 22 mmol/L (22-30); CHLORIDE 107 mmol/L (98-107); CREATININE RESULT 1.07 mg/dL (0.52-1.25); GLUCOSE 278 mg/dL (75-110); POTASSIUM 4.3 mmol/L (3.6-5.0); SODIUM 140.3 mmol/L (137-145)
[2017-02-26] MEDS: INSULIN LISPRO 100 UNIT/ML 3 ML VIAL SUBCUT SCH ×2 (07:46→17:00)
[2017-02-26] MEDS: INSULIN GLARGINE,HUM.REC.ANLOG 1,000 UNIT/10 ML UNIT SUBCUT SCH ×2 (09:40→20:41)
[2017-02-26] MEDS: FUROSEMIDE 40 MG TABLET PO SCH (09:41)
[2017-02-26] MEDS: DOCUSATE SODIUM 100 MG CAPSULE PO SCH (09:41)
[2017-02-26] MEDS: LISINOPRIL 10 MG TABLET PO SCH ×2 (09:42→20:42)
[2017-02-26] MEDS: POLYETHYLENE GLYCOL 3350 POWDER 17 GM/1 PACKET PO SCH (09:42)
[2017-02-26] MEDS: LACTULOSE SYRUP 20 GM/30 ML UDCUP PO SCH ×2 (09:45→17:05)
[2017-02-26 10:58] LABS: ANION GAP 15 (5-19); BLOOD UREA NITROGEN 20 mg/dL (7-20); CALCIUM 9.4 mg/dL (8.4-10.2); CARBON DIOXIDE 21 mmol/L (22-30); CHLORIDE 104 mmol/L (98-107); CREATININE RESULT 1.01 mg/dL (0.52-1.25); GLUCOSE 302 mg/dL (75-110); POTASSIUM 4.4 mmol/L (3.6-5.0); SODIUM 139.5 mmol/L (137-145)
[2017-02-26] MEDS ORDERED: INSULIN LISPRO 100 UNIT/ML 3 ML VIAL SUBCUT SCH (11:00)
[2017-02-26 14:34] LABS: ANION GAP 11 (5-19); BLOOD UREA NITROGEN 21 mg/dL (7-20); CALCIUM 9.5 mg/dL (8.4-10.2); CARBON DIOXIDE 23 mmol/L (22-30); CHLORIDE 105 mmol/L (98-107); GLUCOSE 277 mg/dL (75-110); SODIUM 138.7 mmol/L (137-145)
--- NOTE | 2017-02-26 15:39 | PDOC PROGRESS REPORT ---
Subjective Progress Note for:: 02/26/17 Subjective:: Patient complains of right-sided back pain. Was able to move her bowels. Also relates that her back hurts when she takes a deep breath. ROS All organ systems had been evaluated and negative except as in subjective All significant laboratories and diagnostics have been reviewed Reason For Visit: ENCEPHALOPATHY, ATYPICAL PNA, DKA, ARF CHRONIC Physical Exam Vital Signs: Temp Pulse Resp BP Pulse Ox 98.9 F 92 20 122/57 L 99 02/26/17 03:10 02/26/17 03:10 02/26/17 03:10 02/26/17 03:10 02/26/17 03:10 Intake & Output 02/25/17 02/26/17 02/27/17 06:59 06:59 06:59 Intake Total 1758 2182 Output Total 1 Balance 1757 2182 Weight 95.3 kg 95.4 kg General appearance: PRESENT: no acute distress, cooperative, obese Head exam: PRESENT: atraumatic, normocephalic Eye exam: PRESENT: EOMI, PERRLA Ear exam: PRESENT: normal external ear exam Mouth exam: PRESENT: moist, neck supple Neck exam: PRESENT: full ROM. ABSENT: JVD, tenderness Respiratory exam: PRESENT: clear to auscultation rodrigue Cardiovascular exam: PRESENT: RRR. ABSENT: diastolic murmur, systolic murmur Vascular exam: PRESENT: normal capillary refill GI/Abdominal exam: PRESENT: normal bowel sounds, soft. ABSENT: guarding, tenderness Extremities exam: ABSENT: joint swelling, pedal edema Musculoskeletal exam: PRESENT: other - There is tenderness present upon palpation of paraspinous muscles in the lumbar area Neurological exam: PRESENT: alert, awake, oriented to person, oriented to place , oriented to situation Psychiatric exam: PRESENT: appropriate affect, normal mood Skin exam: PRESENT: normal color Results Laboratory Results: 02/25/17 07:05 02/26/17 05:49 02/25/17 02/25/17 02/25/17 07:05 07:05 10:28 WBC 4.9 RBC 4.38 Hgb 11.9 L Hct 36.7 MCV 84 MCH 27.2 MCHC 32.4 RDW 15.3 H Plt Count 151 Seg Neutrophils % 45.3 Lymphocytes % 37.6 Monocytes % 10.6 Eosinophils % 5.3 Basophils % 1.2 Absolute Neutrophils 2.2 Absolute Lymphocytes 1.9 Absolute Monocytes 0.5 Absolute Eosinophils 0.3 Absolute Basophils 0.1 Sodium 137.7 136.3 L Potassium 4.1 4.0 Chloride 104 104 Carbon Dioxide 21 L 21 L Anion Gap 13 11 BUN 23 H 22 H Creatinine 0.94 0.92 Est GFR ( Amer) > 60 > 60 Est GFR (Non-Af Amer) > 60 > 60 Glucose 363 H 437 H* Calcium 9.4 9.2 02/25/17 02/25/17 02/25/17 14:47 18:20 22:10 WBC RBC Hgb Hct MCV MCH MCHC RDW Plt Count Seg Neutrophils % Lymphocytes % Monocytes % Eosinophils % Basophils % Absolute Neutrophils Absolute Lymphocytes Absolute Monocytes Absolute Eosinophils Absolute Basophils Sodium 139.3 139.0 139.2 Potassium 4.3 3.7 3.7 Chloride 104 104 105 Carbon Dioxide 23 23 23 Anion Gap 12 12 11 BUN 20 19 19 Creatinine 1.07 1.06 0.98 Est GFR ( Amer) > 60 > 60 > 60 Est GFR (Non-Af Amer) 52 L 52 L 57 L Glucose 328 H 338 H 274 H Calcium 9.5 9.6 9.2 02/26/17 02/26/17 02:20 05:49 WBC RBC Hgb Hct MCV MCH MCHC RDW Plt Count Seg Neutrophils % Lymphocytes % Monocytes % Eosinophils % Basophils % Absolute Neutrophils Absolute Lymphocytes Absolute Monocytes Absolute Eosinophils Absolute Basophils Sodium 140.8 140.3 Potassium 3.8 4.3 Chloride 107 107 Carbon Dioxide 24 22 Anion Gap 10 11 BUN 19 19 Creatinine 1.02 1.07 Est GFR ( Amer) > 60 > 60 Est GFR (Non-Af Amer) 55 L 52 L Glucose 269 H 278 H Calcium 9.1 9.1 Impressions: Head CT 02/21/17 23:59 IMPRESSION: No acute findings. Abdomen/Pelvis CTA 02/22/17 01:19 IMPRESSION: 1. Minimal right lower lobar patchiness and nonsolid nodularity measuring up to 0.5 cm may indicate atypical pneumonia or atelectasis. Contrast CT chest surveillance recommended in three months. 2. Otherwise unremarkable contrast CTA of the chest, abdomen, and pelvis. Chest/Abdomen CTA 02/22/17 01:19 IMPRESSION: 1. Minimal right lower lobar patchiness and nonsolid nodularity measuring up to 0.5 cm may indicate atypical pneumonia or atelectasis. Contrast CT chest surveillance recommended in three months. 2. Otherwise unremarkable contrast CTA of the chest, abdomen, and pelvis. Chest X-Ray 02/24/17 00:00 IMPRESSION: PATCHY BIBASILAR AIRSPACE OPACITIES MAY REPRESENT SUBSEGMENTAL ATELECTASIS, ASPIRATION, OR DEVELOPING PNEUMONIA. 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 It is evident that patient does have a history of insulin resistance considering that she is using high-dose insulin. There is a possibility that she may also have antibodies against insulin. To try low dose prednisone and follow up response. Continue current dose of Lantus , pre-meal lispro and modified sliding scale. To change bedside glucose back to AC&HS. Nurse had been alerted that an order had been given since 02/24 to check bedside glucose at 2 AM. Will like to have better control before discharging patient out of concern that she may return back dehydrated and confused (2) Acute encephalopathy Is this a current diagnosis for this admission?: Yes Plan: Multifactorial and improving. Mildly decreased oxygen but otherwise no need for supplementation (3) Acute renal failure Qualifiers: Acute renal failure type: unspecified Qualified Code(s): N17.9 - Acute kidney failure, unspecified Is this a current diagnosis for this admission?: Yes Plan: Likely secondary to hypotension and dehydration in the setting of uncontrolled diabetes mellitus. Resolved (4) Atypical pneumonia Is this a current diagnosis for this admission?: Yes Plan: Chest x-ray demonstrating infiltrates and will continue Zosyn. When Dr. Green presented patient to the team there was not a concern of sepsis present on arrival. (5) Chronic pain Qualifiers: Chronic pain type: chronic pain syndrome Qualified Code(s): G89.4 - Chronic pain syndrome Is this a current diagnosis for this admission?: Yes Plan: Patient alleges that she has not been taking more medication than usual.Continue Lyrica as outpatient (6) Hypotension Qualifiers: Hypotension type: unspecified hypotension type Qualified Code(s): I95.9 - Hypotension, unspecified Is this a current diagnosis for this admission?: Yes Plan: Resolved. Continue lisinopril as outpatient (7) Hypoxia Is this a current diagnosis for this admission?: Yes Plan: Acute respiratory failure secondary to pneumonic process. The present time not needing oxygen supplementation (8) Metabolic acidosis Is this a current diagnosis for this admission?: Yes Plan: Patient not in DKA . There is a good possibility that patient is a MELINDA. Resolved (9) Episode of syncope Qualifiers: Syncope type: unspecified Qualified Code(s): R55 - Syncope and collapse Is this a current diagnosis for this admission?: Yes Plan: Orthostatic. Likely secondary to volume depletion (10) HTN (hypertension) Qualifiers: Hypertension type: essential hypertension Qualified Code(s): I10 - Essential (primary) hypertension Is this a current diagnosis for this admission?: Yes Plan: Continue lisinopril and Norvasc (11) Back pain Qualifiers: Back pain location: low back pain Chronicity: unspecified Sciatica presence: without sciatica Is this a current diagnosis for this admission?: Yes Plan: Order MRI of lumbar area. Will continue with outpatient regimen - Time Time Spent with patient: 15-24 minutes Medications reviewed and adjusted accordingly: Yes Anticipated discharge: Home Within: within 48 hours - Inpatient Certification Based on my medical assessment, after consideration of the patient's comorbidities, presenting symptoms, or acuity I expect that the services needed warrant INPATIENT care.: Yes I certify that my determination is in accordance with my understanding of Medicare's requirements for reasonable and necessary INPATIENT services [42 CFR 412.3e].: Yes Medical Necessity: Need for IV Antibiotics
[2017-02-26] MEDS ORDERED: PREDNISONE 20 MG TABLET PO ONE (16:00)
--- NOTE | 2017-02-26 16:26 | RADIOLOGY REPORT (SQ) ---
EXAM DESCRIPTION: MRI LUMBAR SPINE WITHOUT COMPLETED DATE/TIME: 02/26/2017 3:46 pm REASON FOR STUDY: BACK PAIN COMPARISON: CT abdomen pelvis 02/22/2017 TECHNIQUE: Sagittal and Axial imaging includes T1, T2, STIR and gradient echo sequences. Coronal T2/ HASTE imaging. LIMITATIONS: None. FINDINGS: VISUALIZED UPPER ABDOMEN: Limited evaluation. No acute or suspicious findings suggested. SEGMENTATION: No transitional anatomy. The lowest well-developed disc space is labeled L5-S1. ALIGNMENT: Anatomic. VERTEBRAE: Intact. BONE MARROW: Normal. No marrow replacement or reactive changes. DISC SIGNAL: Normal. No significant abnormal signal or loss of height. POSTERIOR ELEMENTS: Generally intact. No pars defect evident. Multilevel facet arthropathy HARDWARE: None in the spine. CORD AND CONUS: Normal in size and signal intensity. Conus at the L2 level. SOFT TISSUES: No aortic aneurysm seen. No bulky retroperitoneal adenopathy or mass. No paraspinal mas s or fluid. L1-L2: No significant spinal stenosis or exit foraminal stenosis. Mild bilateral facet arthropathy L2-L3: No significant spinal stenosis or exit foraminal stenosis. Moderate bilateral facet arthropat hy L3-L4: No significant spinal stenosis or exit foraminal stenosis. Moderate bilateral facet arthropat hy L4-L5: Mild diffuse posterior disc bulge. Moderate bilateral facet arthropathy. Mild bilateral infe rior foraminal narrowing. No significant central stenosis. L5-S1: No significant spinal stenosis or exit foraminal stenosis. Moderate bilateral facet arthropat hy LOWER THORACIC: Moderate bilateral facet arthropathy at T11-12 and T12-L1. Mild bilateral foraminal narrowing at T11-12. No central stenosis. SACRUM: Visualized upper sacrum intact. OTHER: No other significant findings. IMPRESSION: Diffuse facet arthropathy. No high-grade central or foraminal encroachment. No MR evidence of acute fracture or subacute fracture TECHNICAL DOCUMENTATION: JOB ID: [id number] [employer]- All Rights Reserved
[2017-02-26 18:57] LABS: ANION GAP 12 (5-19); BLOOD UREA NITROGEN 22 mg/dL (7-20); CALCIUM 9.6 mg/dL (8.4-10.2); CARBON DIOXIDE 22 mmol/L (22-30); CHLORIDE 104 mmol/L (98-107); CREATININE RESULT 1.26 mg/dL (0.52-1.25); POTASSIUM 4.1 mmol/L (3.6-5.0); SODIUM 137.8 mmol/L (137-145)
[2017-02-26 19:39] LABS: GLUCOSE 409 mg/dL (75-110)
[2017-02-26] MEDS: ATORVASTATIN CALCIUM 20 MG TABLET PO SCH (20:42)
[2017-02-26] MEDS: AMLODIPINE BESYLATE 5 MG TABLET PO SCH (20:42)
[2017-02-26 22:29] LABS: ANION GAP 9 (5-19); BLOOD UREA NITROGEN 22 mg/dL (7-20); CALCIUM 9.4 mg/dL (8.4-10.2); CARBON DIOXIDE 23 mmol/L (22-30); CHLORIDE 106 mmol/L (98-107); CREATININE RESULT 1.21 mg/dL (0.52-1.25); GLUCOSE 369 mg/dL (75-110); POTASSIUM 4.4 mmol/L (3.6-5.0); SODIUM 137.6 mmol/L (137-145)
[2017-02-27] MEDS: PIPERACILLIN SODIUM/TAZOBACTAM 3.375 GM in NORMAL SALINE 100 ML IV SCH ×3 (00:01→12:31)
[2017-02-27] MEDS: INSULIN LISPRO 100 UNIT/ML 3 ML VIAL SUBCUT PRN ×3 (00:14→20:01)
[2017-02-27] MEDS: IPRATROPIUM/ALBUTEROL 0.5-2.5 MG/3 ML AMPUL NEB SCH ×4 (00:15→23:54)
[2017-02-27 02:33] LABS: ANION GAP 9 (5-19); BLOOD UREA NITROGEN 23 mg/dL (7-20); CALCIUM 9.2 mg/dL (8.4-10.2); CARBON DIOXIDE 24 mmol/L (22-30); CHLORIDE 107 mmol/L (98-107); GLUCOSE 387 mg/dL (75-110); POTASSIUM 4.8 mmol/L (3.6-5.0); SODIUM 140.2 mmol/L (137-145)
[2017-02-27] MEDS: LANSOPRAZOLE 30 MG TAB.RAP.DR PO SCH (05:23)
[2017-02-27] MEDS: GABAPENTIN 400 MG CAPSULE PO SCH ×3 (05:23→21:34)
[2017-02-27] MEDS: PREGABALIN 100 MG CAPSULE PO SCH ×3 (05:23→21:34)
[2017-02-27] MEDS: HEPARIN SOD (PORCINE) 5,000 UNIT/ML 1 ML SYRINGE SUBCUT SCH ×3 (05:23→21:34)
[2017-02-27 07:03] LABS: ANION GAP 12 (5-19); BLOOD UREA NITROGEN 23 mg/dL (7-20); CALCIUM 9.3 mg/dL (8.4-10.2); CARBON DIOXIDE 21 mmol/L (22-30); CHLORIDE 106 mmol/L (98-107); CREATININE RESULT 1.17 mg/dL (0.52-1.25); GLUCOSE 394 mg/dL (75-110); POTASSIUM 4.8 mmol/L (3.6-5.0)
[2017-02-27] MEDS: INSULIN LISPRO 100 UNIT/ML 3 ML VIAL SUBCUT SCH ×2 (07:44→09:15)
[2017-02-27] MEDS ORDERED: INSULIN LISPRO 100 UNIT/ML 3 ML VIAL SUBCUT SCH ×2 (07:51)
[2017-02-27] MEDS ORDERED: PREDNISONE 20 MG TABLET PO SCH (10:00)
[2017-02-27 11:06] LABS: ANION GAP 12 (5-19); BLOOD UREA NITROGEN 25 mg/dL (7-20); CALCIUM 9.9 mg/dL (8.4-10.2); CARBON DIOXIDE 23 mmol/L (22-30); CHLORIDE 101 mmol/L (98-107); CREATININE RESULT 1.18 mg/dL (0.52-1.25); POTASSIUM 5.1 mmol/L (3.6-5.0); SODIUM 136.3 mmol/L (137-145)
[2017-02-27 11:17] LABS: GLUCOSE 457 mg/dL (75-110)
[2017-02-27] MEDS: INSULIN GLARGINE,HUM.REC.ANLOG 1,000 UNIT/10 ML UNIT SUBCUT SCH ×2 (11:21→21:33)
[2017-02-27] MEDS: FUROSEMIDE 40 MG TABLET PO SCH (11:24)
[2017-02-27] MEDS: DOCUSATE SODIUM 100 MG CAPSULE PO SCH (11:24)
[2017-02-27] MEDS: LACTULOSE SYRUP 20 GM/30 ML UDCUP PO SCH ×2 (11:24→19:00)
[2017-02-27] MEDS: LISINOPRIL 10 MG TABLET PO SCH ×2 (11:25→21:34)
[2017-02-27] MEDS: POLYETHYLENE GLYCOL 3350 POWDER 17 GM/1 PACKET PO SCH (11:27)
[2017-02-27 14:59] LABS: ANION GAP 12 (5-19); BLOOD UREA NITROGEN 26 mg/dL (7-20); CALCIUM 9.8 mg/dL (8.4-10.2); CARBON DIOXIDE 23 mmol/L (22-30); CHLORIDE 103 mmol/L (98-107); CREATININE RESULT 1.29 mg/dL (0.52-1.25); GLUCOSE 354 mg/dL (75-110); POTASSIUM 4.5 mmol/L (3.6-5.0)
[2017-02-27] MEDS ORDERED: NORMAL SALINE 500 ML IV PRN (18:18)
[2017-02-27 18:48] LABS: ANION GAP 14 (5-19); BLOOD UREA NITROGEN 25 mg/dL (7-20); CALCIUM 9.9 mg/dL (8.4-10.2); CARBON DIOXIDE 22 mmol/L (22-30); CHLORIDE 102 mmol/L (98-107); CREATININE RESULT 1.45 mg/dL (0.52-1.25); GLUCOSE 367 mg/dL (75-110); POTASSIUM 4.3 mmol/L (3.6-5.0); SODIUM 137.9 mmol/L (137-145)
[2017-02-27] MEDS: ATORVASTATIN CALCIUM 20 MG TABLET PO SCH (21:34)
[2017-02-27] MEDS: AMLODIPINE BESYLATE 5 MG TABLET PO SCH (21:34)
[2017-02-27] MEDS: AMOXICILLIN TR/POT CLAVULANATE 500-125 MG TAB PO SCH (21:34)
[2017-02-27 22:21] LABS: ANION GAP 11 (5-19); BLOOD UREA NITROGEN 24 mg/dL (7-20); CALCIUM 9.8 mg/dL (8.4-10.2); CARBON DIOXIDE 23 mmol/L (22-30); CHLORIDE 106 mmol/L (98-107); CREATININE RESULT 1.31 mg/dL (0.52-1.25); GLUCOSE 285 mg/dL (75-110); POTASSIUM 4.1 mmol/L (3.6-5.0); SODIUM 139.7 mmol/L (137-145)
[2017-02-28] MEDS: INSULIN LISPRO 100 UNIT/ML 3 ML VIAL SUBCUT PRN ×3 (00:18→12:14)
[2017-02-28 02:39] LABS: ANION GAP 12 (5-19); BLOOD UREA NITROGEN 23 mg/dL (7-20); CALCIUM 9.5 mg/dL (8.4-10.2); CARBON DIOXIDE 25 mmol/L (22-30); CHLORIDE 107 mmol/L (98-107); CREATININE RESULT 1.17 mg/dL (0.52-1.25); GLUCOSE 205 mg/dL (75-110); POTASSIUM 3.9 mmol/L (3.6-5.0); SODIUM 143.5 mmol/L (137-145)
[2017-02-28] MEDS: LANSOPRAZOLE 30 MG TAB.RAP.DR PO SCH (05:41)
[2017-02-28] MEDS: AMOXICILLIN TR/POT CLAVULANATE 500-125 MG TAB PO SCH ×3 (05:41→22:55)
[2017-02-28] MEDS: HEPARIN SOD (PORCINE) 5,000 UNIT/ML 1 ML SYRINGE SUBCUT SCH ×3 (05:41→22:55)
[2017-02-28] MEDS: PREGABALIN 100 MG CAPSULE PO SCH ×3 (05:41→22:55)
[2017-02-28] MEDS: GABAPENTIN 400 MG CAPSULE PO SCH ×3 (05:41→22:55)
[2017-02-28 07:06] LABS: ANION GAP 8 (5-19); BLOOD UREA NITROGEN 23 mg/dL (7-20); CALCIUM 9.6 mg/dL (8.4-10.2); CARBON DIOXIDE 26 mmol/L (22-30); CHLORIDE 107 mmol/L (98-107); CREATININE RESULT 1.08 mg/dL (0.52-1.25); GLUCOSE 223 mg/dL (75-110); SODIUM 141.2 mmol/L (137-145)
[2017-02-28] MEDS: IPRATROPIUM/ALBUTEROL 0.5-2.5 MG/3 ML AMPUL NEB SCH ×3 (07:41→23:38)
[2017-02-28] MEDS: INSULIN LISPRO 100 UNIT/ML 3 ML VIAL SUBCUT SCH (08:27)
[2017-02-28] MEDS: INSULIN GLARGINE,HUM.REC.ANLOG 1,000 UNIT/10 ML UNIT SUBCUT SCH ×2 (10:18→22:55)
[2017-02-28] MEDS: LISINOPRIL 10 MG TABLET PO SCH ×2 (10:19→22:56)
[2017-02-28] MEDS: FUROSEMIDE 40 MG TABLET PO SCH (10:19)
[2017-02-28] MEDS: POLYETHYLENE GLYCOL 3350 POWDER 17 GM/1 PACKET PO SCH (10:21)
[2017-02-28] MEDS: DOCUSATE SODIUM 100 MG CAPSULE PO SCH (10:21)
[2017-02-28] MEDS: LACTULOSE SYRUP 20 GM/30 ML UDCUP PO SCH ×2 (10:21→18:49)
[2017-02-28] MEDS ORDERED: INSULIN LISPRO 100 UNIT/ML 3 ML VIAL SUBCUT SCH ×3 (11:00→16:00)
[2017-02-28 11:06] LABS: ANION GAP 9 (5-19); BLOOD UREA NITROGEN 24 mg/dL (7-20); CALCIUM 9.7 mg/dL (8.4-10.2); CARBON DIOXIDE 26 mmol/L (22-30); CHLORIDE 105 mmol/L (98-107); CREATININE RESULT 1.12 mg/dL (0.52-1.25); GLUCOSE 264 mg/dL (75-110); POTASSIUM 4.3 mmol/L (3.6-5.0); SODIUM 140.2 mmol/L (137-145)
[2017-02-28] MEDS ORDERED: INSULIN LISPRO 100 UNIT/ML 3 ML VIAL SUBCUT ONE (12:30)
[2017-02-28 13:41] LABS: ANION GAP 13 (5-19); BLOOD UREA NITROGEN 25 mg/dL (7-20); CARBON DIOXIDE 24 mmol/L (22-30); CHLORIDE 105 mmol/L (98-107); CREATININE RESULT 1.04 mg/dL (0.52-1.25); GLUCOSE 244 mg/dL (75-110); MAGNESIUM 1.9 mg/dL (1.6-2.3); POTASSIUM 4.2 mmol/L (3.6-5.0); SODIUM 141.6 mmol/L (137-145)
[2017-02-28 18:24] LABS: ANION GAP 11 (5-19); BLOOD UREA NITROGEN 26 mg/dL (7-20); CALCIUM 9.4 mg/dL (8.4-10.2); CARBON DIOXIDE 24 mmol/L (22-30); CHLORIDE 105 mmol/L (98-107); CREATININE RESULT 1.13 mg/dL (0.52-1.25); GLUCOSE 189 mg/dL (75-110)
[2017-02-28 22:26] LABS: ANION GAP 9 (5-19); BLOOD UREA NITROGEN 27 mg/dL (7-20); CALCIUM 9.5 mg/dL (8.4-10.2); CARBON DIOXIDE 25 mmol/L (22-30); CHLORIDE 106 mmol/L (98-107); CREATININE RESULT 1.11 mg/dL (0.52-1.25); GLUCOSE 191 mg/dL (75-110); POTASSIUM 3.8 mmol/L (3.6-5.0); SODIUM 139.8 mmol/L (137-145)
[2017-02-28] MEDS: AMLODIPINE BESYLATE 5 MG TABLET PO SCH (22:55)
[2017-02-28] MEDS: ATORVASTATIN CALCIUM 20 MG TABLET PO SCH (22:55)
[2017-03-01] MEDS: INSULIN LISPRO 100 UNIT/ML 3 ML VIAL SUBCUT PRN ×2 (00:29→04:09)
[2017-03-01 02:31] LABS: ANION GAP 8 (5-19); BLOOD UREA NITROGEN 27 mg/dL (7-20); CALCIUM 9.5 mg/dL (8.4-10.2); CARBON DIOXIDE 26 mmol/L (22-30); CHLORIDE 106 mmol/L (98-107); CREATININE RESULT 1.14 mg/dL (0.52-1.25); GLUCOSE 238 mg/dL (75-110); POTASSIUM 3.9 mmol/L (3.6-5.0); SODIUM 139.9 mmol/L (137-145)
[2017-03-01] MEDS: HEPARIN SOD (PORCINE) 5,000 UNIT/ML 1 ML SYRINGE SUBCUT SCH (05:13)
[2017-03-01] MEDS: GABAPENTIN 400 MG CAPSULE PO SCH (05:18)
[2017-03-01] MEDS: LANSOPRAZOLE 30 MG TAB.RAP.DR PO SCH (05:18)
[2017-03-01] MEDS: PREGABALIN 100 MG CAPSULE PO SCH (05:18)
[2017-03-01] MEDS: AMOXICILLIN TR/POT CLAVULANATE 500-125 MG TAB PO SCH (05:18)
[2017-03-01 06:19] LABS: ANION GAP 9 (5-19); BLOOD UREA NITROGEN 27 mg/dL (7-20); CALCIUM 9.8 mg/dL (8.4-10.2); CARBON DIOXIDE 25 mmol/L (22-30); CHLORIDE 107 mmol/L (98-107); CREATININE RESULT 1.07 mg/dL (0.52-1.25); GLUCOSE 234 mg/dL (75-110); SODIUM 140.7 mmol/L (137-145)
[2017-03-01] MEDS ORDERED: INSULIN LISPRO 100 UNIT/ML 3 ML VIAL SUBCUT SCH ×6 (07:34→11:00)
[2017-03-01] MEDS ORDERED: INSULIN GLARGINE,HUM.REC.ANLOG 1,000 UNIT/10 ML UNIT SUBCUT SCH (07:34)
[2017-03-01] MEDS: IPRATROPIUM/ALBUTEROL 0.5-2.5 MG/3 ML AMPUL NEB SCH (08:05)
[2017-03-01] MEDS ORDERED: METOLAZONE 2.5 MG TABLET PO SCH (10:00)
[2017-03-01] MEDS ORDERED: MAGNESIUM OXIDE 400 MG TABLET PO SCH (10:00)
[2017-03-01] MEDS ORDERED: POTASSIUM CHLORIDE 10 MEQ TABLET.SA PO SCH (10:00)
[2017-03-01] MEDS: LISINOPRIL 10 MG TABLET PO SCH (10:58)
[2017-03-01] MEDS: FUROSEMIDE 40 MG TABLET PO SCH (10:59)
[2017-03-01] MEDS: DOCUSATE SODIUM 100 MG CAPSULE PO SCH (10:59)
[2017-03-01] MEDS: POLYETHYLENE GLYCOL 3350 POWDER 17 GM/1 PACKET PO SCH (11:06)
[2017-03-01] MEDS: LACTULOSE SYRUP 20 GM/30 ML UDCUP PO SCH (11:06)
[2017-03-01 12:20] LABS: ANION GAP 11 (5-19); BLOOD UREA NITROGEN 27 mg/dL (7-20); CALCIUM 9.8 mg/dL (8.4-10.2); CARBON DIOXIDE 22 mmol/L (22-30); CHLORIDE 109 mmol/L (98-107); CREATININE RESULT 1.05 mg/dL (0.52-1.25); GLUCOSE 223 mg/dL (75-110); POTASSIUM 4.3 mmol/L (3.6-5.0)
[2017-03-01 12:42] VITALS: BP 121/55
--- NOTE | 2017-03-01 17:00 | XCELERA REPORT ---
[address] [address] Lower Extremity Venous Evaluation Name: EDUARDA JARRELL Age: 66 yrs Gender: Female : 1950 Patient Status: Inpatient Patient Location: [address] [place], [place] [address] Study Date: 03/01/2017 10:22 AM Procedure: Color flow and duplex imaging bilaterally of the veins of the lower extremities as well as the Common Femoral veins. Reason For Study: pain/swelling Ordering Physician: VANESSA SAMANIEGO Performed By: Josephine Herrera Right Sided Venous Evaluation Normal vessel filling wall to wall, compression and augmentation as well as Colour flow down to the infrageniculate veins. Left Sided Venous Evaluation Normal vessel filling wall to wall, compression and augmentation as well as Colour flow down to the infrageniculate veins. Interpretation Summary No duplex evidence of DVT or obstruction in the bilateral lower extremities. : VANESSA SAMANIEGO > Kenny Butt
--- NOTE | 2017-03-03 05:21 | PDOC PROGRESS REPORT ---
Subjective Progress Note for:: 02/27/17 Subjective:: Patient states that her back back is not hurting her today. Explained to her that her blood sugars are still elevated. Patient states that she does not know why however it was reported that the family is bringing in food to her. Reason For Visit: ENCEPHALOPATHY, ATYPICAL PNA, DKA, ARF CHRONIC Physical Exam Vital Signs: Temp Pulse Resp BP Pulse Ox 97.8 F 86 20 129/62 H 96 02/27/17 20:26 02/27/17 20:26 02/27/17 20:26 02/27/17 20:26 02/27/17 20:26 Intake & Output 02/26/17 02/27/17 02/28/17 06:59 06:59 06:59 Intake Total 2182 2377 2295 Balance 2182 2377 2295 Weight 95.4 kg 96.2 kg General appearance: PRESENT: no acute distress, obese Head exam: PRESENT: normocephalic Eye exam: PRESENT: EOMI. ABSENT: scleral icterus Mouth exam: PRESENT: moist Neck exam: ABSENT: carotid bruit, JVD, lymphadenopathy, thyromegaly Respiratory exam: PRESENT: clear to auscultation rodrigue. ABSENT: rales, rhonchi, wheezes Cardiovascular exam: PRESENT: RRR. ABSENT: diastolic murmur, rubs, systolic murmur GI/Abdominal exam: PRESENT: normal bowel sounds, soft. ABSENT: distended, guarding, mass, organolmegaly, rebound, tenderness Rectal exam: PRESENT: deferred Extremities exam: PRESENT: full ROM. ABSENT: calf tenderness, clubbing, pedal edema Neurological exam: PRESENT: alert, awake, oriented to person, oriented to place , oriented to time, oriented to situation, CN II-XII grossly intact. ABSENT: motor sensory deficit Psychiatric exam: PRESENT: appropriate affect, normal mood. ABSENT: homicidal ideation, suicidal ideation Skin exam: PRESENT: dry, intact, warm. ABSENT: cyanosis, rash Results Laboratory Results: 02/25/17 07:05 02/27/17 17:55 02/26/17 02/27/17 02/27/17 22:05 01:58 06:04 Sodium 137.6 140.2 139.0 Potassium 4.4 4.8 4.8 Chloride 106 107 106 Carbon Dioxide 23 24 21 L Anion Gap 9 9 12 BUN 22 H 23 H 23 H Creatinine 1.21 1.20 1.17 Est GFR ( Amer) 54 L 55 L 56 L Est GFR (Non-Af Amer) 45 L 45 L 47 L Glucose 369 H 387 H 394 H Calcium 9.4 9.2 9.3 02/27/17 02/27/17 02/27/17 10:01 14:11 17:55 Sodium 136.3 L 138.0 137.9 Potassium 5.1 H 4.5 4.3 Chloride 101 103 102 Carbon Dioxide 23 23 22 Anion Gap 12 12 14 BUN 25 H 26 H 25 H Creatinine 1.18 1.29 H 1.45 H Est GFR ( Amer) 56 L 50 L 44 L Est GFR (Non-Af Amer) 46 L 42 L 36 L Glucose 457 H* 354 H 367 H Calcium 9.9 9.8 9.9 Impressions: Head CT 02/21/17 23:59 IMPRESSION: No acute findings. Abdomen/Pelvis CTA 02/22/17 01:19 IMPRESSION: 1. Minimal right lower lobar patchiness and nonsolid nodularity measuring up to 0.5 cm may indicate atypical pneumonia or atelectasis. Contrast CT chest surveillance recommended in three months. 2. Otherwise unremarkable contrast CTA of the chest, abdomen, and pelvis. Chest/Abdomen CTA 02/22/17 01:19 IMPRESSION: 1. Minimal right lower lobar patchiness and nonsolid nodularity measuring up to 0.5 cm may indicate atypical pneumonia or atelectasis. Contrast CT chest surveillance recommended in three months. 2. Otherwise unremarkable contrast CTA of the chest, abdomen, and pelvis. Chest X-Ray 02/24/17 00:00 IMPRESSION: PATCHY BIBASILAR AIRSPACE OPACITIES MAY REPRESENT SUBSEGMENTAL ATELECTASIS, ASPIRATION, OR DEVELOPING PNEUMONIA. Lumbar Spine MRI 02/26/17 00:00 IMPRESSION: Diffuse facet arthropathy. No high-grade central or foraminal encroachment. 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 Some concern that patient may have antibodies against insulin therefore she was started on steroids. Unfortunately his steroids may be further contributing to her hyperglycemia. Steroids were discontinued patient long-acting insulin was increased to 90 units twice daily and her fast acting insulin was increased to 30 units before meals along with sliding scale insulin. Will also give patient some hydration. (2) Acute encephalopathy Is this a current diagnosis for this admission?: Yes Plan: Thought to be due to hypoxemia and/or possible pneumonia as patient was being treated with Zosyn. (3) Acute renal failure Qualifiers: Acute renal failure type: unspecified Qualified Code(s): N17.9 - Acute kidney failure, unspecified Is this a current diagnosis for this admission?: Yes Plan: Most likely due to hypotension and the dehydration resolved. (4) Atypical pneumonia Is this a current diagnosis for this admission?: Yes Plan: Patient currently on Zosyn. (5) Back pain Qualifiers: Back pain location: low back pain Chronicity: unspecified Sciatica presence: without sciatica Is this a current diagnosis for this admission?: Yes Plan: MRI shows arthropathy. Patient states she no longer has any back pain. (6) Chronic pain Qualifiers: Chronic pain type: chronic pain syndrome Qualified Code(s): G89.4 - Chronic pain syndrome Is this a current diagnosis for this admission?: Yes Plan: On Lyrica and gabapentin. Patient does not complain of any pain at this time. (7) Episode of syncope Qualifiers: Syncope type: unspecified Qualified Code(s): R55 - Syncope and collapse Is this a current diagnosis for this admission?: Yes Plan: Possibly due to orthostatic hypotension. This is most likely secondary to volume depletion. Resolved. (8) Hypotension Qualifiers: Hypotension type: unspecified hypotension type Qualified Code(s): I95.9 - Hypotension, unspecified Is this a current diagnosis for this admission?: Yes (9) Metabolic acidosis Is this a current diagnosis for this admission?: Yes Plan: Patient with metabolic acidosis without DKA. Most likely secondary to dehydration. (10) HTN (hypertension) Qualifiers: Hypertension type: essential hypertension Qualified Code(s): I10 - Essential (primary) hypertension Is this a current diagnosis for this admission?: Yes Plan: Resume antihypertensives as patient hypotension has since resolved. - Time Time Spent with patient: 15-24 minutes Anticipated discharge: Home with Homehealth Within: within 48 hours - Inpatient Certification Medical Necessity: Significant Comorbidiites Make Outpatient Treatment Too Risky - Patient blood glucose is still not well controlled.
--- NOTE | 2017-03-03 05:30 | PDOC PROGRESS REPORT ---
Subjective Progress Note for:: 02/28/17 Subjective:: She is stating her legs are swollen and that she is having a lot of leg pain. Patient previously told me that her leg pain is chronic. Reason For Visit: ENCEPHALOPATHY, ATYPICAL PNA, DKA, ARF CHRONIC Physical Exam Vital Signs: Temp Pulse Resp BP Pulse Ox 98.5 F 86 16 106/68 92 02/28/17 15:52 02/28/17 19:00 02/28/17 16:07 02/28/17 15:52 02/28/17 15:52 Intake & Output 02/27/17 02/28/17 03/01/17 06:59 06:59 06:59 Intake Total 2377 3315 1070 Balance 2377 3315 1070 Weight 96.2 kg 95.8 kg General appearance: PRESENT: no acute distress, obese Eye exam: PRESENT: EOMI. ABSENT: scleral icterus Mouth exam: PRESENT: moist Neck exam: ABSENT: carotid bruit, JVD, lymphadenopathy, thyromegaly Respiratory exam: PRESENT: clear to auscultation rodrigue. ABSENT: rales, rhonchi, wheezes Cardiovascular exam: PRESENT: RRR. ABSENT: diastolic murmur, rubs, systolic murmur Pulses: PRESENT: normal dorsalis pedis pul GI/Abdominal exam: PRESENT: normal bowel sounds, soft. ABSENT: distended, guarding, mass, organolmegaly, rebound, tenderness Rectal exam: PRESENT: deferred Extremities exam: PRESENT: full ROM, pedal edema - Trace. ABSENT: calf tenderness, clubbing Neurological exam: PRESENT: alert, awake, oriented to person, oriented to place , oriented to time, oriented to situation, CN II-XII grossly intact. ABSENT: motor sensory deficit Psychiatric exam: PRESENT: appropriate affect, normal mood. ABSENT: homicidal ideation, suicidal ideation Skin exam: PRESENT: dry, intact, warm. ABSENT: cyanosis, rash Results Laboratory Results: 02/25/17 07:05 02/28/17 18:00 02/27/17 02/28/17 02/28/17 21:53 02:00 06:30 Sodium 139.7 143.5 141.2 Potassium 4.1 3.9 4.0 Chloride 106 107 107 Carbon Dioxide 23 25 26 Anion Gap 11 12 8 BUN 24 H 23 H 23 H Creatinine 1.31 H 1.17 1.08 Est GFR ( Amer) 49 L 56 L > 60 Est GFR (Non-Af Amer) 41 L 47 L 51 L Glucose 285 H 205 H 223 H Calcium 9.8 9.5 9.6 Magnesium 02/28/17 02/28/17 02/28/17 10:18 13:06 18:00 Sodium 140.2 141.6 140.0 Potassium 4.3 4.2 4.0 Chloride 105 105 105 Carbon Dioxide 26 24 24 Anion Gap 9 13 11 BUN 24 H 25 H 26 H Creatinine 1.12 1.04 1.13 Est GFR ( Amer) 59 L > 60 59 L Est GFR (Non-Af Amer) 49 L 53 L 48 L Glucose 264 H 244 H 189 H Calcium 9.7 10.0 9.4 Magnesium 1.9 Impressions: Head CT 02/21/17 23:59 IMPRESSION: No acute findings. Abdomen/Pelvis CTA 02/22/17 01:19 IMPRESSION: 1. Minimal right lower lobar patchiness and nonsolid nodularity measuring up to 0.5 cm may indicate atypical pneumonia or atelectasis. Contrast CT chest surveillance recommended in three months. 2. Otherwise unremarkable contrast CTA of the chest, abdomen, and pelvis. Chest/Abdomen CTA 02/22/17 01:19 IMPRESSION: 1. Minimal right lower lobar patchiness and nonsolid nodularity measuring up to 0.5 cm may indicate atypical pneumonia or atelectasis. Contrast CT chest surveillance recommended in three months. 2. Otherwise unremarkable contrast CTA of the chest, abdomen, and pelvis. Chest X-Ray 02/24/17 00:00 IMPRESSION: PATCHY BIBASILAR AIRSPACE OPACITIES MAY REPRESENT SUBSEGMENTAL ATELECTASIS, ASPIRATION, OR DEVELOPING PNEUMONIA. Lumbar Spine MRI 02/26/17 00:00 IMPRESSION: Diffuse facet arthropathy. No high-grade central or foraminal encroachment. 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 Morning glucoses in the 100s. Patient needed 20 additional units. Will continue to adjust basal bolus insulin accordingly. Unfortunately patient uncontrolled blood glucoses is due to diet noncompliance. (2) Acute encephalopathy Is this a current diagnosis for this admission?: Yes Plan: Thought to be due to hypoxemia and/or possible pneumonia as patient was being treated with Zosyn which was converted to Augmentin. (3) Acute renal failure Qualifiers: Acute renal failure type: unspecified Qualified Code(s): N17.9 - Acute kidney failure, unspecified Is this a current diagnosis for this admission?: Yes Plan: Most likely due to hypotension and the dehydration resolved. (4) Atypical pneumonia Is this a current diagnosis for this admission?: Yes Plan: Patient was started on Zosyn but was transitioned to Augmentin. Will complete 7 days of treatment. (5) Back pain Qualifiers: Back pain location: low back pain Chronicity: unspecified Sciatica presence: without sciatica Is this a current diagnosis for this admission?: Yes Plan: MRI shows arthropathy. Patient states she no longer has any back pain. (6) Chronic pain Qualifiers: Chronic pain type: chronic pain syndrome Qualified Code(s): G89.4 - Chronic pain syndrome Is this a current diagnosis for this admission?: Yes Plan: On Lyrica and gabapentin. Is complaining of severe leg pain with swelling. There is only trace edema noted on examination. Will give patient a couple doses of Lasix and metolazone. Will order venous Doppler. (7) Episode of syncope Qualifiers: Syncope type: unspecified Qualified Code(s): R55 - Syncope and collapse Is this a current diagnosis for this admission?: Yes Plan: Possibly due to orthostatic hypotension. This is most likely secondary to volume depletion. Resolved. (8) HTN (hypertension) Qualifiers: Hypertension type: essential hypertension Qualified Code(s): I10 - Essential (primary) hypertension Is this a current diagnosis for this admission?: Yes Plan: Resume antihypertensives as patient hypotension has since resolved. (9) Hypotension Qualifiers: Hypotension type: unspecified hypotension type Qualified Code(s): I95.9 - Hypotension, unspecified Is this a current diagnosis for this admission?: Yes Plan: Secondary to volume depletion. (10) Metabolic acidosis Is this a current diagnosis for this admission?: Yes Plan: Patient with metabolic acidosis without DKA. Most likely secondary to dehydration. - Time Time Spent with patient: Less than 15 minutes Anticipated discharge: Home with Homehealth Within: within 24 hours - Inpatient Certification Medical Necessity: Significant Comorbidiites Make Outpatient Treatment Too Risky , Need Close Monitoring Due to Risk of Patient Decompensation, Need for Pain Control
--- NOTE | 2017-03-03 05:40 | PDOC DISCHARGE SUMMARY ---
General - Admit/Disc Date/PCP Admission Date/Primary Care Provider: 02/22/17 04:57 BRENNEN CHRISTIAN MD Discharge Date: 03/01/17 - Discharge Diagnosis (1) Uncontrolled diabetes mellitus Is this a current diagnosis for this admission?: Yes (2) Acute encephalopathy Is this a current diagnosis for this admission?: Yes (3) Acute renal failure Is this a current diagnosis for this admission?: Yes (4) Atypical pneumonia Is this a current diagnosis for this admission?: Yes (5) Back pain Is this a current diagnosis for this admission?: Yes (6) Chronic pain Is this a current diagnosis for this admission?: Yes (7) Episode of syncope Is this a current diagnosis for this admission?: Yes (8) HTN (hypertension) Is this a current diagnosis for this admission?: Yes (9) Hypotension Is this a current diagnosis for this admission?: Yes (10) Metabolic acidosis Is this a current diagnosis for this admission?: Yes - Additional Information Resuscitation Status: Full Code Discharge Diet: Cardiac, Diabetic Discharge Activity: Activity As Tolerated Prescriptions: Insulin Glargine,Hum.rec.anlog [Lantus Solostar] 90 unit SUBCUT BID #1 insuln.pen Insulin Aspart [Novolog Flexpen] 35 unit SUBCUT MEALS #1 insuln.pen Potassium Chloride 10 meq PO DAILY #30 tablet.er Home Medications: Budesonide [Pulmicort 180 mcg Flexhaler] 1 puff IH BIDP PRN 02/22/17 Docusate Sodium [Colace 100 mg Capsule] 100 mg PO DAILYP PRN 02/22/17 Furosemide [Lasix 40 mg Tablet] 40 mg PO DAILY 02/22/17 Gabapentin [Neurontin] 800 mg PO Q8 02/22/17 Lisinopril [Zestril] 20 mg PO Q12 02/22/17 Meclizine HCl [Antivert 25 mg Tablet] 25 mg PO TIDP PRN 02/22/17 Omeprazole 40 mg PO DAILY 02/22/17 Oxycodone HCl 15 mg PO TIDP PRN 02/22/17 Pregabalin [Lyrica 50 mg Capsule] 50 mg PO Q8 02/22/17 Rosuvastatin Calcium [Crestor 10 mg Tablet] 10 mg PO QHS 02/22/17 Insulin Aspart [Novolog Flexpen] 35 unit SUBCUT MEALS #1 insuln.pen 03/01/17 Insulin Glargine,Hum.rec.anlog [Lantus Solostar] 90 unit SUBCUT BID #1 insuln.pen 03/01/17 Potassium Chloride 10 meq PO DAILY #30 tablet.er 03/01/17 History of Present Illness History of Present Illness: EDUARDA JARRELL is a 66 year old female with past medical history of insulin- dependent diabetes, asthma, hypertension and chronic pain. Presented with encephalopathy and syncope. Patient was found to be hypotensive, and acute renal failure and with hyper glycemia. Please refer to H&P dictated by Dr. Green for complete details. Hospital Course Hospital Course: She was admitted for acute encephalopathy thought to be secondary to hypotension. Patient blood glucose was elevated and she was initially thought to be DKA however she was most likely in a hyperosmolar state which was causing her change in mentation as patient pH was normal. CT of patient head was normal. Patient did have acute renal failure with a creatinine of 1.67 which resolved with aggressive hydration. Patient hypotension also resolved. Patient hypotension was thought to be secondary to volume depletion. Patient was also diagnosed with atypical pneumonia which was thought to be viral due to the amount of lymphocytes however there is infiltrate seen on chest x-ray therefore patient was started on Zosyn and then transition to Augmentin to complete a total of 7 days. Initially it was thought that patient's blood glucoses were very difficult to control and this was due to the fact that patient was started on a lower dose of insulin in which she takes at home. However this was quickly adjusted and patient required 90 units twice daily of basal insulin and 35 units 3 times daily of fast acting insulin. Despite making the changes patient blood glucoses still ran in the high 100s 200s due to the fact that patient is noncompliant with her diet. Patient continued to complain of pain. Patient complained of back pain for which a lumbar MRI was done and showed arthropathy. Patient then went on to complain of leg pain however she most likely has terrible neuropathy for which she is on both Lyrica and gabapentin. Venous Dopplers were completed and DVT was ruled out. Patient is currently being discharged home with home health and physical therapy. Patient is also receiving a rolling walker. Physical Exam Vital Signs: Temp Pulse Resp BP Pulse Ox 98.6 F 80 14 121/55 L 90 L 03/01/17 12:42 03/01/17 12:42 03/01/17 12:42 03/01/17 12:42 03/01/17 12:42 Intake & Output 03/01/17 03/02/17 03/03/17 06:59 06:59 06:59 Intake Total 1380 Balance 1380 Weight 100.8 kg General appearance: PRESENT: no acute distress, obese Head exam: PRESENT: normocephalic Eye exam: ABSENT: scleral icterus Mouth exam: PRESENT: moist, tongue midline Neck exam: ABSENT: carotid bruit, JVD, lymphadenopathy, thyromegaly Respiratory exam: PRESENT: clear to auscultation rodrigue. ABSENT: rales, rhonchi, wheezes Cardiovascular exam: PRESENT: RRR. ABSENT: diastolic murmur, rubs, systolic murmur Pulses: PRESENT: normal dorsalis pedis pul Vascular exam: PRESENT: normal capillary refill GI/Abdominal exam: PRESENT: normal bowel sounds, soft. ABSENT: distended, guarding, mass, organolmegaly, rebound, tenderness Rectal exam: PRESENT: deferred Extremities exam: PRESENT: full ROM. ABSENT: calf tenderness, clubbing, pedal edema Neurological exam: PRESENT: alert, awake, oriented to person, oriented to place , oriented to time, oriented to situation, CN II-XII grossly intact. ABSENT: motor sensory deficit Psychiatric exam: PRESENT: appropriate affect, normal mood. ABSENT: homicidal ideation, suicidal ideation Skin exam: PRESENT: dry, intact, warm. ABSENT: cyanosis, rash Results Laboratory Results: 02/25/17 07:05 03/01/17 10:18 Impressions: Head CT 02/21/17 23:59 IMPRESSION: No acute findings. Abdomen/Pelvis CTA 02/22/17 01:19 IMPRESSION: 1. Minimal right lower lobar patchiness and nonsolid nodularity measuring up to 0.5 cm may indicate atypical pneumonia or atelectasis. Contrast CT chest surveillance recommended in three months. 2. Otherwise unremarkable contrast CTA of the chest, abdomen, and pelvis. Chest/Abdomen CTA 02/22/17 01:19 IMPRESSION: 1. Minimal right lower lobar patchiness and nonsolid nodularity measuring up to 0.5 cm may indicate atypical pneumonia or atelectasis. Contrast CT chest surveillance recommended in three months. 2. Otherwise unremarkable contrast CTA of the chest, abdomen, and pelvis. Chest X-Ray 02/24/17 00:00 IMPRESSION: PATCHY BIBASILAR AIRSPACE OPACITIES MAY REPRESENT SUBSEGMENTAL ATELECTASIS, ASPIRATION, OR DEVELOPING PNEUMONIA. Lumbar Spine MRI 02/26/17 00:00 IMPRESSION: Diffuse facet arthropathy. No high-grade central or foraminal encroachment. No MR evidence of acute fracture or subacute fracture Qualifiers PATEINT BEING DISCHARGED WITH ANY OF THE FOLLOWING DIAGNOSIS?: No Plan Time Spent: Greater than 30 Minutes - Patient is being discharged home health and physical therapy. Patient is to follow her PCP. Patient advised to please follow a diabetic diet.
== END 2017-03-01 12:57 | disposition home health service (06) | DRG 637 ==
LOC: ER 23:55 → EH 02-22 04:57 → 3W 02-22 13:38
PROVIDERS: ADMIT Internal Medicine; ATTEND Internal Medicine
DX: E10.65 Type 1 diabetes mellitus with hyperglycemia (principal); G93.40 Encephalopathy, unspecified; J18.9 Pneumonia, unspecified organism; I13.0 Hypertensive heart and chronic kidney disease with heart failure and stage 1 through stage 4 chronic kidney disease, or unspecified chronic kidney disease; N17.9 Acute kidney failure, unspecified; E10.22 Type 1 diabetes mellitus with diabetic chronic kidney disease; I95.9 Hypotension, unspecified; N18.9 Chronic kidney disease, unspecified; E78.5 Hyperlipidemia, unspecified; E86.0 Dehydration; G89.4 Chronic pain syndrome; R41.82 Altered mental status, unspecified; R55 Syncope and collapse; F32.9 Major depressive disorder, single episode, unspecified; Z79.4 Long term (current) use of insulin; Z79.899 Other long term (current) drug therapy
CPT/HCPCS: 36415; 36600; 51701; 70450; 71010; 71020; 71275; 72148; 74174; 80048; 80053; 80307; 81001; 82550; 82803; 82962; 83735; 83930; 84443; 84484; 85025; 93005; 93010; 93970; 94640; 96361; 96374; 96375; 96376; 99285; G8978-GP; G8979-GP; J1644; J1815; J2310; J2405; J2543; J3490; J7030; J7040; J7512; J7620

== ENCOUNTER 2017-03-14 10:29 | Emergency (ER) | payer OTHER, MEDICARE, MEDICAID ==
[2017-03-14 10:34] VITALS: BP 151/79
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
== END 2017-03-14 12:44 | disposition home or self-care (01) ==
LOC: ER 10:29
DX: S50.01XA Contusion of right elbow, initial encounter (principal); M25.521 Pain in right elbow; V49.50XA Passenger injured in collision with unspecified motor vehicles in traffic accident, initial encounter; I10 Essential (primary) hypertension; J45.909 Unspecified asthma, uncomplicated; E11.9 Type 2 diabetes mellitus without complications
CPT/HCPCS: 99283

== ENCOUNTER → 2017-04-03 | Outpatient (CLI) | payer MEDICARE, MEDICAID ==
[2017-04-03 15:03] LABS: HEMATOCRIT 39.1 % (36.0-47.0); HEMOGLOBIN 12.7 g/dL (12.0-15.5); MEAN CORPUSCULAR HEMOGLOBIN 27.1 pg (27.0-33.4); MEAN CORPUSCULAR HGB CONC 32.5 g/dL (32.0-36.0); MEAN CORPUSCULAR VOLUME 83 fl (80-97); PLATELET COUNT 223 10^3/uL (150-450); RED BLOOD COUNT 4.69 10^6/uL (3.72-5.28); RED CELL DISTRIBUTION WIDTH 15.8 % (11.5-14.0); WHITE BLOOD COUNT 7.6 10^3/uL (4.0-10.5)
[2017-04-03 15:15] LABS: APPEARANCE,URINE SLIGHTLY-CLOUDY; BILIRUBIN,URINE NEGATIVE (NEGATIVE); COLOR,URINE YELLOW; GLUCOSE, URINE 150 mg/dL (NEGATIVE); KETONES,URINE NEGATIVE (NEGATIVE); LEUKOCYTE ESTERASE,URINE NEGATIVE (NEGATIVE); NITRITE,URINE NEGATIVE (NEGATIVE); PROTEIN,URINE 100 mg/dL (NEGATIVE); URINE SPECIFIC GRAVITY 1.018; UROBILINOGEN,URINE NEGATIVE mg/dL (<2.0)
[2017-04-03 15:26] LABS: ANION GAP 10 (5-19); BLOOD UREA NITROGEN 32 mg/dL (7-20); CALCIUM 10.6 mg/dL (8.4-10.2); CARBON DIOXIDE 26 mmol/L (22-30); CHLORIDE 108 mmol/L (98-107); GLUCOSE 102 mg/dL (75-110); POTASSIUM 4.9 mmol/L (3.6-5.0); SODIUM 144.4 mmol/L (137-145)
[2017-04-03 15:50] LABS: URINE CREATININE 92.8 mg/dL (15-278)
[2017-04-03 16:02] LABS: UR PRO/CREAT RATIO RESULT 3.5 mg/mg (0.0-0.2); URINE PROTEIN 324.7 mg/dL (<12)
== END ==
LOC: OD 14:13
PROVIDERS: ATTEND Physician Assistant Medical
DX: I12.9 Hypertensive chronic kidney disease with stage 1 through stage 4 chronic kidney disease, or unspecified chronic kidney disease (principal); N18.2 Chronic kidney disease, stage 2 (mild); R80.9 Proteinuria, unspecified; E11.9 Type 2 diabetes mellitus without complications
CPT/HCPCS: 36415; 80048; 81001; 82570; 84156; 85027

== ENCOUNTER 2017-04-16 16:20 | Inpatient (IN) | payer MEDICARE, MEDICAID ==
--- NOTE | 2017-04-16 19:09 | ER Document Report ---
ED Medical Screen (RME) - General Chief Complaint: Back Pain Stated Complaint: BACK PAIN Time Seen by Provider: 04/16/17 18:34 Mode of Arrival: Ambulatory Information source: Patient Notes: 66-year-old female presents to ED for complaint of abdominal pain and back pain for a long time. She states she went to her primary doctor on he gave her antibiotics and she states she has been taking them with no relief or any pain. She states she does not have any problem voiding. She states she is on chronic pain management of Percocet 3 times a day she is not sure of the dose. She states she has not been taking any since due to the pain. She denies any nausea or vomiting at this time. She does have generalized abdominal pain and her normal chronic low back pain. I have greeted and performed a rapid initial assessment of this patient. A comprehensive ED assessment and evaluation of the patient, analysis of test results and completion of medical decision making process will be conducted by an additional ED providers. TRAVEL OUTSIDE OF THE [place] IN LAST 30 DAYS: No - Related Data Allergies/Adverse Reactions: No Known Allergies Allergy (Verified 03/14/17 10:30) Past Medical History - Past Medical History Cardiac Medical History: Reports: Hx Hypercholesterolemia, Hx Hypertension Pulmonary Medical History: Reports: Hx Asthma Denies: Hx Tuberculosis Endocrine Medical History: Reports: Hx Diabetes Mellitus Type 1, Hx Diabetes Mellitus Type 2 Renal/ Medical History: Denies: Hx Peritoneal Dialysis Psychiatric Medical History: Reports: Hx Depression Past Surgical History: Reports: Hx Appendectomy, Hx Section - x2 - Immunizations Hx Diphtheria, Pertussis, Tetanus Vaccination: Yes - 2011 History of Influenza Vaccine for 12/2016 - 05/2017 Season: Yes Influenza Administration Date for 12/2016 - 05/2017 Season: 01/30/17 Physical Exam - Vital signs Vitals: Temp Pulse Resp BP Pulse Ox 98.5 F 100 18 103/60 96 04/16/17 16:31 04/16/17 16:31 04/16/17 16:31 04/16/17 16:31 04/16/17 16:31 Course - Vital Signs Vital signs: Temp Pulse Resp BP Pulse Ox 98.5 F 100 18 103/60 96 04/16/17 16:31 04/16/17 16:31 04/16/17 16:31 04/16/17 16:31 04/16/17 16:31
--- NOTE | 2017-04-16 19:50 | RADIOLOGY REPORT (SQ) ---
EXAM DESCRIPTION: ACUTE ABDOMEN SERIES COMPLETED DATE/TIME: 04/16/2017 7:27 pm REASON FOR STUDY: Abdominal pain COMPARISON: Chest films 02/24/2017 CT angio chest 02/22/2017 NUMBER OF VIEWS: Three views. TECHNIQUE: Frontal chest, supine abdomen and upright abdomen radiographic images acquired. LIMITATIONS: None. FINDINGS: CHEST: Lungs clear of infiltrates. Stable mild cardiomegaly. No pleural effusions or pne umothorax. No acute bony changes. FREE AIR: None. No abnormal gas collections. BOWEL GAS PATTERN: Nonobstructive pattern. No dilated loops or air fluid levels. CALCIFICATIONS: Calcified pelvic phleboliths and left retroperitoneal phleboliths, unchanged from kami or CT 02/22/2017. HARDWARE: None in the abdomen. SOFT TISSUES: No gross mass or suggestion of organomegaly. BONES: No acute fracture. No worrisome bone lesions. OTHER: No other significant finding. IMPRESSION: NO RADIOGRAPHIC EVIDENCE FOR ACUTE ABDOMINAL DISEASE. TECHNICAL DOCUMENTATION: JOB ID: [id number] [email or web address]- All Rights Reserved
[2017-04-16 20:46] LABS: ABSOLUTE BASOPHILS # (AUTO) 0.1 10^3/uL (0.0-0.2); ABSOLUTE EOSINOPHILS # (AUTO) 0.1 10^3/uL (0.0-0.6); ABSOLUTE LYMPHOCYTES (AUTO) 2.1 10^3/uL (0.5-4.7); ABSOLUTE MONOCYTES (AUTO) 0.5 10^3/uL (0.1-1.4); ABSOLUTE NEUT (AUTO) 4.5 10^3/uL (1.7-8.2); EOSINOPHILS % (AUTO) 1.4 % (0-6); HEMATOCRIT 45.3 % (36.0-47.0); HEMOGLOBIN 14.5 g/dL (12.0-15.5); MEAN CORPUSCULAR HEMOGLOBIN 27.4 pg (27.0-33.4); MEAN CORPUSCULAR VOLUME 86 fl (80-97); MONOCYTES % (AUTO) 7.4 % (3-13); PLATELET COUNT 287 10^3/uL (150-450); RED BLOOD COUNT 5.29 10^6/uL (3.72-5.28); RED CELL DISTRIBUTION WIDTH 15.6 % (11.5-14.0); SEGMENTED NEUTROPHILS % (AUTO) 61.2 % (42-78); TOTAL CELLS COUNTED % (AUTO) 100 %; WHITE BLOOD COUNT 7.4 10^3/uL (4.0-10.5)
--- NOTE | 2017-04-16 20:51 | RADIOLOGY REPORT (SQ) ---
EXAM DESCRIPTION: U/S ABDOMEN COMPLETE W/O DOP COMPLETED DATE/TIME: 04/16/2017 8:12 pm REASON FOR STUDY: Abdominal pain low back pain COMPARISON: MRI lumbar spine 02/26/2017 CT angio abdomen and pelvis 02/22/2017 Abdominal ultrasound 10/20/2015 TECHNIQUE: Dynamic and static grayscale images acquired of the abdomen and recorded on PACS. Additio nal selected color Doppler and spectral images recorded. LIMITATIONS: None. FINDINGS: PANCREAS: No masses. Visualized pancreatic duct normal caliber. LIVER: No masses. Echotexture normal. LIVER VASCULATURE: Normal directional flow of the main portal vein and hepatic veins. GALLBLADDER: No stones. Normal wall thickness. No pericholecystic fluid. ULTRASOUND-DETECTED DONG'S SIGN: Negative. INTRAHEPATIC DUCTS AND COMMON DUCT: CBD and intrahepatic ducts normal caliber. No filling defects. INFERIOR VENA CAVA: Normal flow. AORTA: No aneurysm. RIGHT KIDNEY: Normal size. Normal echogenicity. No solid or suspicious masses. No hydronephros is. No calcifications. LEFT KIDNEY: Normal size. Normal echogenicity. No solid or suspicious masses. No hydronephrosi s. No calcifications. SPLEEN: Normal size. No solid masses. PERITONEAL AND PLEURAL SPACES: No ascites or effusions. OTHER: No other significant finding. IMPRESSION: NORMAL ABDOMINAL ULTRASOUND. TECHNICAL DOCUMENTATION: JOB ID: [id number]- All Rights Reserved
[2017-04-16 20:59] LABS: ALANINE AMINOTRANSFERASE 34 U/L (9-52); ALBUMIN 4.4 g/dL (3.5-5.0); ALKALINE PHOSPHATASE 89 U/L (38-126); ANION GAP 18 (5-19); ASPARTATE AMINO TRANSFERASE 17 U/L (14-36); BILIRUBIN,DIRECT 0.4 mg/dL (0.0-0.4); BILIRUBIN,TOTAL 0.6 mg/dL (0.2-1.3); BLOOD UREA NITROGEN 35 mg/dL (7-20); CALCIUM 10.5 mg/dL (8.4-10.2); CARBON DIOXIDE 19 mmol/L (22-30); CHLORIDE 95 mmol/L (98-107); LIPASE 614.1 U/L (23-300); SODIUM 132.2 mmol/L (137-145); TOTAL PROTEIN 7.2 g/dL (6.3-8.2)
[2017-04-16 21:14] LABS: POTASSIUM 6.7 mmol/L (3.6-5.0)
[2017-04-16 21:15] LABS: GLUCOSE 666 mg/dL (75-110)
[2017-04-16] MEDS ORDERED: ALBUTEROL SULFATE 0.083% NEB 2.5 MG/3 ML AMPUL NEB ONE (21:17)
[2017-04-16] MEDS ORDERED: INSULIN REG, HUMAN 100 UNIT/ML 3 ML VIAL (PYX) IV ONE (21:17)
[2017-04-16] MEDS ORDERED: SODIUM BICARBONATE 8.4% INJ 50 MEQ/50 ML DISP.SYRIN IV ONE (21:17)
[2017-04-16] MEDS ORDERED: CALCIUM GLUCONATE 1000 MG/10 ML INJ IV ONE (21:43)
[2017-04-16] MEDS: NORMAL SALINE 1000 ML 1,000 ML IV PRN (21:57)
--- NOTE | 2017-04-16 21:58 | ER Document Report ---
ED General - General Chief Complaint: Back Pain Stated Complaint: BACK PAIN Time Seen by Provider: 04/16/17 18:34 Mode of Arrival: Ambulatory Information source: Patient Notes: 66-year-old diabetic female presents with complaints of back pain. Patient notes her bowel movements have been very slow, states she is constipated. Patient admits to urinary difficulty as well. Patient also admits to generalized abdominal pain and cyst that she received pain medication TRAVEL OUTSIDE OF THE [place] IN LAST 30 DAYS: No - HPI Onset: Last week Onset/Duration: Persistent Quality of pain: Achy Severity: Mild Pain Level: 1 Associated symptoms: Body/muscle aches, Other Exacerbated by: Denies Relieved by: Denies Similar symptoms previously: Yes - Sent in by primary care Recently seen / treated by doctor: No - Related Data Allergies/Adverse Reactions: No Known Allergies Allergy (Verified 03/14/17 10:30) Past Medical History - General Information source: Patient - Social History Smoking Status: Never Smoker Cigarette use (# per day): No Chew tobacco use (# tins/day): No Smoking Education Provided: No Family History: Reviewed & Not Pertinent - Past Medical History Cardiac Medical History: Reports: Hx Hypercholesterolemia, Hx Hypertension Pulmonary Medical History: Reports: Hx Asthma Denies: Hx Tuberculosis Endocrine Medical History: Reports: Hx Diabetes Mellitus Type 1, Hx Diabetes Mellitus Type 2 Renal/ Medical History: Denies: Hx Peritoneal Dialysis Psychiatric Medical History: Reports: Hx Depression Past Surgical History: Reports: Hx Appendectomy, Hx Section - x2 - Immunizations Hx Diphtheria, Pertussis, Tetanus Vaccination: Yes - 2011 Hx Pneumococcal Vaccination: 12/17/10 Review of Systems - Review of Systems Notes: REVIEW OF SYSTEMS: CONSTITUTIONAL : Denies fever, chills, or sweats. Denies recent illness. EENT: Denies eye, ear, throat, or mouth pain or symptoms. Denies nasal or sinus congestion or discharge. Denies throat, tongue, or mouth swelling or difficulty swallowing. CARDIOVASCULAR: Denies chest pain. Denies palpitations or racing or irregular heart beat. Denies ankle edema. RESPIRATORY: Denies cough, cold, or chest congestion. Denies shortness of breath, difficulty breathing, or wheezing. GASTROINTESTINAL: Admits to abdominal pain GENITOURINARY: Miss decreased urination FEMALE GENITOURINARY: Denies vaginal bleeding, heavy or abnormal periods, irregular periods. Denies vaginal discharge or odor. MUSCULOSKELETAL: Back pain SKIN: Denies rash, lesions or sores. HEMATOLOGIC : Denies easy bruising or bleeding. LYMPHATIC: Denies swollen, enlarged glands. NEUROLOGICAL: Denies confusion or altered mental status. Denies passing out or loss of consciousness. Denies dizziness or lightheadedness. Denies headache. Denies weakness or paralysis or loss of use of either side. Denies problems with gait or speech. Denies sensory loss, numbness, or tingling. Denies seizures. PSYCHIATRIC: Denies anxiety or stress. Denies depression, suicidal ideation, or homicidal ideation. ALL OTHER SYSTEMS REVIEWED AND NEGATIVE. PHYSICAL EXAMINATION: GENERAL: Well-appearing, well-nourished and in no acute distress. HEAD: Atraumatic, normocephalic. EYES: Pupils equal round and reactive to light, extraocular movements intact, conjunctiva are normal. ENT: Nares patent, oropharynx clear without exudates. Moist mucous membranes. NECK: Normal range of motion, supple without lymphadenopathy LUNGS: Breath sounds clear to auscultation bilaterally and equal. No wheezes rales or rhonchi. HEART: Regular rate and rhythm without murmurs ABDOMEN: Soft, generalized tenderness on palpation of the abdomen. Female : deferred Musculoskeletal: Normal range of motion, no pitting or edema. No cyanosis. NEUROLOGICAL: Cranial nerves grossly intact. Normal speech, normal gait. Normal sensory, motor exams PSYCH: Normal mood, normal affect. SKIN: Warm, Dry, normal turgor, no rashes or lesions noted. Dictation was performed using [employer] voice recognition software Physical Exam - Vital signs Vitals: Temp Pulse Resp BP Pulse Ox 98.5 F 100 18 103/60 96 04/16/17 16:31 04/16/17 16:31 04/16/17 16:31 04/16/17 16:31 04/16/17 16:31 Course - Re-evaluation Re-evalutation: On arrival to the emergency department patient was seen by nurse practitioner who ordered his lab work imaging, it is noted the patient is hyper anemic, hyperglycemic, with acute renal insufficiency. Patient's immediately started on treatment for her hyperkalemia EKG notes a left bundle branch block consistent with previous with possibly hyperacute T-wave 04/16/17 21:58 dr Jones defers on admission at this time ,requests repeat potassium 04/16/17 23:32 Patient's potassium has improved after intervention, Dr. Jones will accept the patient at this time - Vital Signs Vital signs: Temp Pulse Resp BP Pulse Ox 98.5 F 100 15 108/74 96 04/16/17 16:31 04/16/17 16:31 04/16/17 23:09 04/16/17 23:09 04/16/17 23:09 - Laboratory Result Diagrams: 04/16/17 20:36 04/16/17 22:30 Laboratory results interpreted by me: 04/16/17 04/16/17 04/16/17 20:36 20:36 22:30 RBC 5.29 H RDW 15.6 H VBG pH Sodium 132.2 L Potassium 6.7 H* 5.5 H D Chloride 95 L Carbon Dioxide 19 L 19 L BUN 35 H 36 H Creatinine 1.90 H 1.62 H Est GFR ( Amer) 32 L 39 L Est GFR (Non-Af Amer) 27 L 32 L Glucose 666 H* 539 H* Calcium 10.5 H Lipase 614.1 H 04/16/17 22:30 RBC RDW VBG pH 7.28 L Sodium Potassium Chloride Carbon Dioxide BUN Creatinine Est GFR ( Amer) Est GFR (Non-Af Amer) Glucose Calcium Lipase - Diagnostic Test Radiology reviewed: Image reviewed, Reports reviewed - EKG Interpretation by Me EKG shows normal: Sinus rhythm, [place], Intervals [place]/QRS: LBBB When compared to previous EKG there are: No significant change Critical Care Note - Critical Care Note Total time excluding time spent on procedures (mins): 67 Comments: 67 minutes of critical care time spent in direct contact evaluating and reevaluating the patient, treating symptoms, reviewing labs and studies and speaking with family and consultants excluding any procedures Discharge - Discharge Clinical Impression: Hyperkalemia Diabetic ketoacidosis Qualifiers: Diabetes mellitus type: type 2 Diabetes mellitus complication detail: without coma Qualified Code(s): E11.10 - Type 2 diabetes mellitus with ketoacidosis without coma Back pain Qualifiers: Back pain location: low back pain Chronicity: chronic Back pain laterality: unspecified Sciatica presence: without sciatica Qualified Code(s): M54.5 - Low back pain; G89.29 - Other chronic pain; G89.29 - Other chronic pain Uncontrolled diabetes mellitus Qualifiers: Diabetes mellitus type: type 2 Diabetes mellitus complication status: with hyperglycemia Qualified Code(s): E11.65 - Type 2 diabetes mellitus with hyperglycemia Acute renal failure Qualifiers: Acute renal failure type: unspecified Qualified Code(s): N17.9 - Acute kidney failure, unspecified Condition: Fair Disposition: ADMITTED INPATIENT Admitting Provider: Hospitalist Unit Admitted: IMCU Referrals: BRENNEN CHRISTIAN MD [Primary Care Provider] - Follow up as needed
[2017-04-16] MEDS ORDERED: MORPHINE SULFATE 10 MG/ML INJ IV ONE (22:35)
[2017-04-16 22:50] LABS: VENOUS BLOOD BASE EXCESS -4.7 mmol/L; VENOUS BLOOD HCO3 22.4 mmol/L (20-32); VENOUS BLOOD PCO2 49.3 mmHg (35-63); VENOUS BLOOD PH 7.28 (7.30-7.42)
[2017-04-16 22:58] LABS: ALANINE AMINOTRANSFERASE 32 U/L (9-52); ALKALINE PHOSPHATASE 79 U/L (38-126); ANION GAP 19 (5-19); ASPARTATE AMINO TRANSFERASE 16 U/L (14-36); BILIRUBIN,DIRECT 0.4 mg/dL (0.0-0.4); BILIRUBIN,TOTAL 0.4 mg/dL (0.2-1.3); BLOOD UREA NITROGEN 36 mg/dL (7-20); CALCIUM 10.2 mg/dL (8.4-10.2); CARBON DIOXIDE 19 mmol/L (22-30); CHLORIDE 100 mmol/L (98-107); SODIUM 137.7 mmol/L (137-145); TOTAL PROTEIN 6.7 g/dL (6.3-8.2)
[2017-04-16 23:10] LABS: POTASSIUM 5.5 mmol/L (3.6-5.0)
[2017-04-16 23:11] LABS: GLUCOSE 539 mg/dL (75-110)
[2017-04-16] MEDS ORDERED: PROMETHAZINE HCL INJ 25 MG/1 ML VIAL IV PRN (23:56)
[2017-04-16] MEDS ORDERED: ALBUTEROL SULFATE 0.083% NEB 2.5 MG/3 ML AMPUL NEB PRN (23:56)
[2017-04-16] MEDS ORDERED: GLUCAGON,HUMAN RECOMB 1 MG INJ IM PRN (23:56)
[2017-04-16] MEDS ORDERED: DEXTROSE 40% GEL 15 GM TUBE PO PRN ×2 (23:56)
[2017-04-16] MEDS ORDERED: MAGNESIUM HYDROXIDE SUSP 30 ML UDCUP PO PRN (23:56)
[2017-04-16] MEDS ORDERED: ACETAMINOPHEN 325 MG TABLET PO PRN (23:56)
[2017-04-16] MEDS ORDERED: DEXTROSE 50%-WATER 25 GM/50 ML DISP.SYRIN IV PRN ×2 (23:56)
[2017-04-16] MEDS ORDERED: ZOLPIDEM TARTRATE 5 MG TABLET PO PRN (23:56)
[2017-04-17] MEDS: NORMAL SALINE 1000 ML 1,000 ML IV PRN (00:05)
[2017-04-17] MEDS ORDERED: MAGNESIUM CITRATE 296 ML BOTTLE PO ONE (00:07)
[2017-04-17 00:10] LABS: APPEARANCE,URINE SLIGHTLY-CLOUDY; BILIRUBIN,URINE NEGATIVE (NEGATIVE); COLOR,URINE YELLOW; GLUCOSE, URINE >=500 mg/dL (NEGATIVE); KETONES,URINE 20 mg/dL (NEGATIVE); LEUKOCYTE ESTERASE,URINE NEGATIVE (NEGATIVE); NITRITE,URINE NEGATIVE (NEGATIVE); PROTEIN,URINE 100 mg/dL (NEGATIVE); URINE SPECIFIC GRAVITY 1.022; UROBILINOGEN,URINE NEGATIVE mg/dL (<2.0)
--- NOTE | 2017-04-17 00:21 | PDOC H&P ---
History of Present Illness Admission Date/PCP: 04/16/17 23:52 BRENNEN CHRISTIAN MD Patient complains of: Constipation and abdominal pain History of Present Illness: EDUARDA JARRELL is a 66 year old female with known diabetes and prior history of DKA. For the last week she has been constipated and had increasing abdominal pain. She did not feel like eating and so stopped taking her insulin for several days she did drink a lot of fruit juice. She presents to the emergency room with elevated blood sugar and potassium. She was treated emergently by the physician in the ED for her potassium. Venous blood gases showed her to be acidemic and she was referred to us for further treatment of her diabetic ketoacidosis. Past Medical History Cardiac Medical History: Reports: Hyperlipidema, Hypertension Pulmonary Medical History: Reports: Asthma Denies: Tuberculosis Endocrine Medical History: Reports: Diabetes Mellitus Type 2 Renal/ Medical History: Reports: Chronic Kidney Disease Psychiatric Medical History: Reports: Depression Hematology: Denies: Anemia, Sickle Cell Disease Past Surgical History Past Surgical History: Reports: Appendectomy, Section - x2 Denies: Amputation Social History Information Source: Patient Lives with: Alone Smoking Status: Never Smoker Frequency of Alcohol Use: None Hx Recreational Drug Use: No Drugs: None Hx Prescription Drug Abuse: No - Advance Directive Resuscitation Status: Full Code Surrogate healthcare decision maker:: None Family History Family History: Reviewed & Not Pertinent, DM Parental Family History Reviewed: Yes Children Family History Reviewed: Yes Sibling(s) Family History Reviewed.: Yes Medication/Allergy Home Medications: Budesonide [Pulmicort 180 mcg Flexhaler] 1 puff IH BIDP PRN 02/22/17 Docusate Sodium [Colace 100 mg Capsule] 100 mg PO DAILYP PRN 02/22/17 Furosemide [Lasix 40 mg Tablet] 40 mg PO DAILY 02/22/17 Gabapentin [Neurontin] 800 mg PO Q8 02/22/17 Lisinopril [Zestril] 20 mg PO Q12 02/22/17 Meclizine HCl [Antivert 25 mg Tablet] 25 mg PO TIDP PRN 02/22/17 Omeprazole 40 mg PO DAILY 02/22/17 Oxycodone HCl 15 mg PO TIDP PRN 02/22/17 Pregabalin [Lyrica 50 mg Capsule] 50 mg PO Q8 12/07/17 Rosuvastatin Calcium [Crestor 10 mg Tablet] 10 mg PO QHS 02/22/17 Insulin Aspart [Novolog Flexpen] 35 unit SUBCUT MEALS #1 insuln.pen 03/01/17 Insulin Glargine,Hum.rec.anlog [Lantus Solostar] 90 unit SUBCUT BID #1 insuln.pen 03/01/17 Potassium Chloride 10 meq PO DAILY #30 tablet.er 03/01/17 Naproxen 500 mg PO BID PRN #30 tablet 03/14/17 Allergies/Adverse Reactions: No Known Allergies Allergy (Verified 03/14/17 10:30) Review of Systems Constitutional: ABSENT: chills, fever(s), headache(s), weight gain, weight loss Eyes: ABSENT: visual disturbances Ears: ABSENT: hearing changes Cardiovascular: ABSENT: chest pain, dyspnea on exertion, edema, orthropnea, palpitations Respiratory: ABSENT: cough, hemoptysis Gastrointestinal: PRESENT: as per HPI, abdominal pain, bloating, constipation, nausea Genitourinary: ABSENT: dysuria, hematuria Musculoskeletal: ABSENT: joint swelling Integumentary: ABSENT: rash, wounds Neurological: PRESENT: abnormal gait Psychiatric: ABSENT: anxiety, depression, homidical ideation, suicidal ideation Endocrine: PRESENT: other - Diabetes Hematologic/Lymphatic: ABSENT: easy bleeding, easy bruising Physical Exam Vital Signs: Temp Pulse Resp BP Pulse Ox 98.5 F 100 15 108/74 96 04/16/17 16:31 04/16/17 16:31 04/16/17 23:09 04/16/17 23:09 04/16/17 23:09 General appearance: PRESENT: no acute distress, cooperative, obese, well- developed, well-nourished Head exam: PRESENT: atraumatic, normocephalic Eye exam: PRESENT: conjunctiva pink, EOMI, PERRLA. ABSENT: scleral icterus Ear exam: PRESENT: normal external ear exam Mouth exam: PRESENT: moist, tongue midline Teeth exam: PRESENT: poor dentation Neck exam: ABSENT: carotid bruit, JVD, lymphadenopathy, thyromegaly Respiratory exam: PRESENT: clear to auscultation rodrigue. ABSENT: rales, rhonchi, wheezes Cardiovascular exam: PRESENT: RRR. ABSENT: diastolic murmur, rubs, systolic murmur Vascular exam: PRESENT: normal capillary refill GI/Abdominal exam: PRESENT: normal bowel sounds, soft. ABSENT: distended, guarding, mass, organolmegaly, rebound, tenderness Rectal exam: PRESENT: deferred Extremities exam: PRESENT: full ROM. ABSENT: calf tenderness, clubbing, pedal edema Neurological exam: PRESENT: alert, awake, oriented to person, oriented to place , oriented to time, oriented to situation, CN II-XII grossly intact. ABSENT: motor sensory deficit Psychiatric exam: PRESENT: appropriate affect, normal mood. ABSENT: homicidal ideation, suicidal ideation Skin exam: PRESENT: dry, intact, warm. ABSENT: cyanosis, rash Results Laboratory Results: 04/16/17 04/16/17 04/16/17 20:36 20:36 22:30 WBC 7.4 RBC 5.29 H Hgb 14.5 Hct 45.3 Plt Count 287 VBG pH VBG pCO2 VBG HCO3 Sodium 132.2 L 137.7 Potassium 6.7 H* 5.5 H D Carbon Dioxide 19 L 19 L BUN 35 H 36 H Creatinine 1.90 H 1.62 H Lipase 614.1 H Urine Glucose (UA) Urine Ketones Urine Blood 04/16/17 04/16/17 22:30 23:02 WBC RBC Hgb Hct Plt Count VBG pH 7.28 L VBG pCO2 49.3 VBG HCO3 22.4 Sodium Potassium Carbon Dioxide BUN Creatinine Lipase Urine Glucose (UA) >=500 H Urine Ketones 20 H Urine Blood SMALL H Impressions: Abdomen Ultrasound 04/16/17 19:06 IMPRESSION: NORMAL ABDOMINAL ULTRASOUND. Acute Abdomen Series 04/16/17 19:07 IMPRESSION: NO RADIOGRAPHIC EVIDENCE FOR ACUTE ABDOMINAL DISEASE. Assessment & Plan - Diagnosis (1) Hyperkalemia Is this a current diagnosis for this admission?: Yes (2) Diabetic ketoacidosis Qualifiers: Diabetes mellitus type: type 2 Diabetes mellitus complication detail: without coma Qualified Code(s): E11.10 - Type 2 diabetes mellitus with ketoacidosis without coma Is this a current diagnosis for this admission?: Yes (3) IVY (acute kidney injury) Is this a current diagnosis for this admission?: Yes (4) HTN (hypertension) Qualifiers: Hypertension type: essential hypertension Qualified Code(s): I10 - Essential (primary) hypertension Is this a current diagnosis for this admission?: Yes - Time Time Spent: 30 to 50 Minutes - Inpatient Certification Based on my medical assessment, after consideration of the patient's comorbidities, presenting symptoms, or acuity I expect that the services needed warrant INPATIENT care.: Yes I certify that my determination is in accordance with my understanding of Medicare's requirements for reasonable and necessary INPATIENT services [42 CFR 412.3e].: Yes Medical Necessity: Significant Comorbidiites Make Outpatient Treatment Too Risky , Need Close Monitoring Due to Risk of Patient Decompensation, Need For IV Fluids, Risk of Complication if Not Cared For in Hospital - Plan Summary Plan Summary: Patient will be started on insulin drip and admitted to our IMCU unit. She will have hourly blood sugars. She will receive DVT prophylaxis with low molecular weight heparin. Anticipated length of stay is greater than 2 midnights
[2017-04-17] MEDS: IPRATROPIUM/ALBUTEROL 0.5-2.5 MG/3 ML AMPUL NEB SCH ×3 (00:29→17:18)
[2017-04-17] MEDS ORDERED: ATORVASTATIN CALCIUM 20 MG TABLET PO ONE ×2 (00:30→22:30)
[2017-04-17] MEDS ORDERED: INSULIN REG, HUMAN 100 UNIT/ML 3 ML VIAL (PYX) ONE ×2 (00:41→12:17)
[2017-04-17] MEDS: ATORVASTATIN CALCIUM 20 MG TABLET PO SCH (00:50)
[2017-04-17] MEDS: NORMAL SALINE 100 ML with INSULIN REGULAR, HUMAN 100 UNIT IV PRN ×4 (00:50→20:17)
[2017-04-17 00:52] LABS: URINE AMPHETAMINES SCREEN NEGATIVE; URINE BARBITURATES SCREEN NEGATIVE; URINE BENZODIAZEPINES SCREEN NEGATIVE; URINE COCAINE SCREEN NEGATIVE; URINE MARIJUANA (THC) SCREEN NEGATIVE; URINE METHADONE SCREEN NEGATIVE; URINE PHENCYCLIDINE SCREEN NEGATIVE
[2017-04-17 01:06] LABS: ANION GAP 13 (5-19); BLOOD UREA NITROGEN 36 mg/dL (7-20); CALCIUM 9.7 mg/dL (8.4-10.2); CARBON DIOXIDE 22 mmol/L (22-30); CHLORIDE 101 mmol/L (98-107); POTASSIUM 5.3 mmol/L (3.6-5.0)
[2017-04-17 01:17] LABS: GLUCOSE 469 mg/dL (75-110)
[2017-04-17] MEDS ORDERED: KETOROLAC TROMETHAMINE INJ/PF 30 MG/1 ML SDV IV ONE (02:47)
[2017-04-17 04:36] LABS: ANION GAP 12 (5-19); BLOOD UREA NITROGEN 30 mg/dL (7-20); CALCIUM 9.3 mg/dL (8.4-10.2); CARBON DIOXIDE 22 mmol/L (22-30); CHLORIDE 105 mmol/L (98-107); GLUCOSE 344 mg/dL (75-110); POTASSIUM 4.9 mmol/L (3.6-5.0); SODIUM 138.8 mmol/L (137-145); TRIGLYCERIDES 226 mg/dL (<150)
[2017-04-17 04:44] LABS: VLDL CHOLESTEROL 45.2 mg/dL (10-31)
[2017-04-17 04:47] LABS: DIRECT LDL 104 mg/dL (<100)
[2017-04-17] MEDS: PREGABALIN 50 MG CAPSULE PO SCH ×2 (05:57→13:37)
--- NOTE | 2017-04-17 07:49 | EKG REPORT ---
SEVERITY:- ABNORMAL ECG - SINUS RHYTHM PROBABLE LEFT ATRIAL ABNORMALITY LEFT BUNDLE BRANCH BLOCK : Confirmed by: Todd Roth MD 17-Apr-2017 07:48:13
[2017-04-17] MEDS: FAMOTIDINE 20 MG TABLET PO SCH ×2 (10:34→22:05)
[2017-04-17] MEDS: DOCUSATE SODIUM 100 MG CAPSULE PO SCH (10:34)
[2017-04-17] MEDS: ENOXAPARIN SODIUM INJ 40 MG/0.4 ML DISP.SYRIN SUBCUT SCH (10:35)
[2017-04-17 11:22] LABS: ANION GAP 5 (5-19); BLOOD UREA NITROGEN 35 mg/dL (7-20); CALCIUM 9.6 mg/dL (8.4-10.2); CARBON DIOXIDE 27 mmol/L (22-30); CHLORIDE 104 mmol/L (98-107); GLUCOSE 329 mg/dL (75-110); POTASSIUM 4.7 mmol/L (3.6-5.0); SODIUM 135.7 mmol/L (137-145)
[2017-04-17 15:27] LABS: ANION GAP 7 (5-19); BLOOD UREA NITROGEN 34 mg/dL (7-20); CALCIUM 9.8 mg/dL (8.4-10.2); CARBON DIOXIDE 25 mmol/L (22-30); CHLORIDE 104 mmol/L (98-107); GLUCOSE 308 mg/dL (75-110); POTASSIUM 4.8 mmol/L (3.6-5.0); SODIUM 135.6 mmol/L (137-145)
[2017-04-17] MEDS ORDERED: MECLIZINE HCL 25 MG TABLET PO PRN (17:25)
--- NOTE | 2017-04-17 17:33 | PDOC PROGRESS REPORT ---
Subjective Progress Note for:: 04/17/17 Subjective:: Patient is seen on rounds. She is resting in bed comfortably. She denies any chest pain, shortness of breath or dyspnea. She denies any nausea, vomiting or abdominal pain. Denies any fevers or chills. She ate her breakfast without any difficulty. She denies dysuria. States she had abdominal pain for weeks at home problems with constipation therefore stopped taking her insulin. Reason For Visit: DKA Physical Exam Vital Signs: Temp Pulse Resp BP Pulse Ox 98.0 F 78 16 138/70 H 97 04/17/17 13:35 04/17/17 17:18 04/17/17 17:18 04/17/17 13:35 04/17/17 17:18 Intake & Output 04/16/17 04/17/17 04/18/17 06:59 06:59 06:59 Weight 93.2 kg General appearance: PRESENT: no acute distress, obese, well-developed, well- nourished Head exam: PRESENT: atraumatic Eye exam: PRESENT: conjunctiva pink, EOMI, PERRLA. ABSENT: scleral icterus Ear exam: PRESENT: normal external ear exam Mouth exam: PRESENT: moist, tongue midline Teeth exam: PRESENT: poor dentation Neck exam: ABSENT: carotid bruit, JVD, lymphadenopathy, thyromegaly Respiratory exam: PRESENT: clear to auscultation rodrigue. ABSENT: rales, rhonchi, wheezes Cardiovascular exam: PRESENT: RRR. ABSENT: diastolic murmur, rubs, systolic murmur Pulses: PRESENT: normal dorsalis pedis pul Vascular exam: PRESENT: normal capillary refill GI/Abdominal exam: PRESENT: normal bowel sounds, soft. ABSENT: distended, guarding, mass, organolmegaly, rebound, tenderness Rectal exam: PRESENT: deferred Extremities exam: PRESENT: full ROM. ABSENT: calf tenderness, clubbing, pedal edema Neurological exam: PRESENT: alert, awake, oriented to person, oriented to place , oriented to time, oriented to situation, CN II-XII grossly intact. ABSENT: motor sensory deficit Psychiatric exam: PRESENT: appropriate affect, normal mood. ABSENT: homicidal ideation, suicidal ideation Skin exam: PRESENT: dry, intact, warm. ABSENT: cyanosis, rash Results Laboratory Results: 04/17/17 15:06 0104/17/17 04/17/17 00:38 04:15 09:49 Sodium 136.0 L 138.8 Cancelled Potassium 5.3 H 4.9 Cancelled Chloride 101 105 Cancelled Carbon Dioxide 22 22 Cancelled Anion Gap 13 12 Cancelled BUN 36 H 30 H Cancelled Creatinine 1.57 H 1.32 H Cancelled Est GFR ( Amer) 40 L 49 L Cancelled Est GFR (Non-Af Amer) 33 L 41 L Cancelled Glucose 469 H* 344 H Cancelled Calcium 9.7 9.3 Cancelled Triglycerides 226 H Cholesterol 205.10 H LDL Cholesterol Direct 104 H VLDL Cholesterol 45.2 H HDL Cholesterol 54 04/17/17 04/17/17 10:55 15:06 Sodium 135.7 L 135.6 L Potassium 4.7 4.8 Chloride 104 104 Carbon Dioxide 27 25 Anion Gap 5 7 BUN 35 H 34 H Creatinine 1.40 H 1.38 H Est GFR ( Amer) 46 L 47 L Est GFR (Non-Af Amer) 38 L 38 L Glucose 329 H 308 H Calcium 9.6 9.8 Triglycerides Cholesterol LDL Cholesterol Direct VLDL Cholesterol HDL Cholesterol Impressions: Abdomen Ultrasound 04/16/17 19:06 IMPRESSION: NORMAL ABDOMINAL ULTRASOUND. Acute Abdomen Series 04/16/17 19:07 IMPRESSION: NO RADIOGRAPHIC EVIDENCE FOR ACUTE ABDOMINAL DISEASE. Assessment & Plan - Diagnosis (1) Diabetic ketoacidosis Qualifiers: Diabetes mellitus type: type 2 Diabetes mellitus complication detail: without coma Qualified Code(s): E11.10 - Type 2 diabetes mellitus with ketoacidosis without coma Is this a current diagnosis for this admission?: Yes Plan: Continue IV insulin and fluids until anion gap closes (2) Hyperkalemia Is this a current diagnosis for this admission?: Yes Plan: Resolved with hydration (3) IVY (acute kidney injury) Is this a current diagnosis for this admission?: Yes Plan: Improved with IV (4) Uncontrolled diabetes mellitus Qualifiers: Diabetes mellitus type: type 2 Diabetes mellitus complication status: with hyperglycemia Qualified Code(s): E11.65 - Type 2 diabetes mellitus with hyperglycemia (5) Altered mental status Qualifiers: Altered mental status type: unspecified Qualified Code(s): R41.82 - Altered mental status, unspecified Is this a current diagnosis for this admission?: Yes (6) Back pain Qualifiers: Back pain location: low back pain Chronicity: chronic Back pain laterality: unspecified Sciatica presence: without sciatica Qualified Code(s ): M54.5 - Low back pain; G89.29 - Other chronic pain; G89.29 - Other chronic pain Is this a current diagnosis for this admission?: Yes Plan: Chronic low back pain for which she takes oxycodone (7) Chronic pain Qualifiers: Chronic pain type: chronic pain syndrome Qualified Code(s): G89.4 - Chronic pain syndrome (8) HTN (hypertension) Qualifiers: Hypertension type: essential hypertension Qualified Code(s): I10 - Essential (primary) hypertension Is this a current diagnosis for this admission?: Yes Plan: Continue current medication she is normotensive (9) Metabolic acidosis Is this a current diagnosis for this admission?: Yes Plan: Improving with IV hydration and IV insulin
[2017-04-17] MEDS: OXYCODONE HCL IR 5 MG TABLET PO PRN (19:06)
[2017-04-17] MEDS ORDERED: ONDANSETRON HCL 8 MG TABLET PO PRN (19:06)
[2017-04-17 19:35] LABS: ANION GAP 8 (5-19); BLOOD UREA NITROGEN 30 mg/dL (7-20); CALCIUM 9.8 mg/dL (8.4-10.2); CARBON DIOXIDE 24 mmol/L (22-30); CHLORIDE 106 mmol/L (98-107); GLUCOSE 258 mg/dL (75-110); POTASSIUM 4.5 mmol/L (3.6-5.0); SODIUM 137.8 mmol/L (137-145)
[2017-04-17] MEDS ORDERED: ATORVASTATIN CALCIUM 20 MG TABLET PO SCH (22:00)
[2017-04-17] MEDS: GABAPENTIN 400 MG CAPSULE PO SCH (22:06)
[2017-04-17] MEDS: PREGABALIN 100 MG CAPSULE PO SCH (22:06)
[2017-04-17 23:42] LABS: ANION GAP 7 (5-19); BLOOD UREA NITROGEN 26 mg/dL (7-20); CALCIUM 9.7 mg/dL (8.4-10.2); CARBON DIOXIDE 26 mmol/L (22-30); CHLORIDE 106 mmol/L (98-107); GLUCOSE 128 mg/dL (75-110); POTASSIUM 4.6 mmol/L (3.6-5.0); SODIUM 138.8 mmol/L (137-145)
[2017-04-18] MEDS: IPRATROPIUM/ALBUTEROL 0.5-2.5 MG/3 ML AMPUL NEB SCH ×3 (00:26→16:47)
[2017-04-18] MEDS ORDERED: DEXTROSE 40% GEL 15 GM TUBE PO PRN ×2 (01:17)
[2017-04-18] MEDS ORDERED: GLUCAGON,HUMAN RECOMB 1 MG INJ IM PRN (01:17)
[2017-04-18] MEDS ORDERED: DEXTROSE 50%-WATER 25 GM/50 ML DISP.SYRIN IV PRN ×2 (01:17)
[2017-04-18] MEDS ORDERED: NORMAL SALINE 1000 ML 1,000 ML IV ONE (01:18)
[2017-04-18] MEDS: LANSOPRAZOLE 30 MG TAB.RAP.DR PO SCH (05:46)
[2017-04-18] MEDS: GABAPENTIN 400 MG CAPSULE PO SCH ×3 (05:46→22:37)
[2017-04-18] MEDS: PREGABALIN 100 MG CAPSULE PO SCH ×3 (05:46→22:37)
[2017-04-18 07:26] LABS: ABSOLUTE BASOPHILS # (AUTO) 0.1 10^3/uL (0.0-0.2); ABSOLUTE EOSINOPHILS # (AUTO) 0.4 10^3/uL (0.0-0.6); ABSOLUTE LYMPHOCYTES (AUTO) 2.3 10^3/uL (0.5-4.7); ABSOLUTE MONOCYTES (AUTO) 0.5 10^3/uL (0.1-1.4); BASOPHILS % (AUTO) 0.8 % (0-2); EOSINOPHILS % (AUTO) 5.6 % (0-6); HEMATOCRIT 38.6 % (36.0-47.0); LYMPHOCYTES % (AUTO) 37.4 % (13-45); MEAN CORPUSCULAR HEMOGLOBIN 26.4 pg (27.0-33.4); MEAN CORPUSCULAR HGB CONC 31.6 g/dL (32.0-36.0); MEAN CORPUSCULAR VOLUME 84 fl (80-97); MONOCYTES % (AUTO) 7.3 % (3-13); PLATELET COUNT 231 10^3/uL (150-450); RED BLOOD COUNT 4.61 10^6/uL (3.72-5.28); RED CELL DISTRIBUTION WIDTH 15.4 % (11.5-14.0); SEGMENTED NEUTROPHILS % (AUTO) 48.9 % (42-78); TOTAL CELLS COUNTED % (AUTO) 100 %
[2017-04-18 07:32] LABS: WHITE BLOOD COUNT 6.2 10^3/uL (4.0-10.5)
[2017-04-18 07:33] LABS: HEMOGLOBIN 12.2 g/dL (12.0-15.5); MAGNESIUM 2.1 mg/dL (1.6-2.3); PHOSPHORUS 3.2 mg/dL (2.5-4.5)
[2017-04-18] MEDS: OXYCODONE HCL IR 5 MG TABLET PO PRN ×2 (07:57→16:03)
[2017-04-18] MEDS ORDERED: INSULIN GLARGINE,HUM.REC.ANLOG 300 UNIT/3 ML INSULN.PEN SUBCUT SCH (10:00)
[2017-04-18] MEDS: DOCUSATE SODIUM 100 MG CAPSULE PO SCH (10:02)
[2017-04-18] MEDS: INSULIN LISPRO 100 UNIT/ML 3 ML VIAL SUBCUT PRN ×2 (10:02→18:06)
[2017-04-18] MEDS: INSULIN GLARGINE,HUM.REC.ANLOG 1,000 UNIT/10 ML UNIT SUBCUT SCH ×2 (10:02→22:36)
[2017-04-18] MEDS: ENOXAPARIN SODIUM INJ 40 MG/0.4 ML DISP.SYRIN SUBCUT SCH (10:03)
[2017-04-18] MEDS: FAMOTIDINE 20 MG TABLET PO SCH ×2 (10:03→22:37)
[2017-04-18] MEDS ORDERED: (PENDING PHARMACY ID) (Budesonide [Pulmicort 180 Mcg Flexhaler] 1 PUFF) IH PRN (10:27)
--- NOTE | 2017-04-18 10:43 | PDOC PROGRESS REPORT ---
Subjective Progress Note for:: 04/18/17 Subjective:: Patient is seen on rounds. She is resting in bed comfortably. She denies any chest pain, shortness of breath or dyspnea. She denies any nausea, vomiting or abdominal pain. She states she is hungry. She has not had breakfast yet. She complained of intermittent abdominal pain lst night. None today. Denies any fevers or chills. She denies dysuria. States she had abdominal pain for weeks at home problems with constipation therefore stopped taking her insulin. Reason For Visit: DKA Physical Exam Vital Signs: Temp Pulse Resp BP Pulse Ox 98.0 F 85 16 140/83 H 95 04/18/17 07:52 04/18/17 08:54 04/18/17 08:54 04/18/17 07:52 04/18/17 08:54 Intake & Output 04/17/17 04/18/17 04/19/17 06:59 06:59 06:59 Intake Total 1999 Balance 1999 Weight 93.2 kg 94.1 kg General appearance: PRESENT: no acute distress, obese, well-developed, well- nourished Head exam: PRESENT: atraumatic, normocephalic Eye exam: PRESENT: conjunctiva pink, EOMI, PERRLA. ABSENT: scleral icterus Ear exam: PRESENT: normal external ear exam Mouth exam: PRESENT: moist, tongue midline Neck exam: ABSENT: carotid bruit, JVD, lymphadenopathy, thyromegaly Respiratory exam: PRESENT: clear to auscultation rodrigue. ABSENT: rales, rhonchi, wheezes Cardiovascular exam: PRESENT: RRR. ABSENT: diastolic murmur, rubs, systolic murmur Pulses: PRESENT: normal carotid pulses, normal radial pulses Vascular exam: PRESENT: normal capillary refill GI/Abdominal exam: PRESENT: normal bowel sounds, soft. ABSENT: distended, guarding, mass, organolmegaly, rebound, tenderness Rectal exam: PRESENT: deferred Extremities exam: PRESENT: full ROM. ABSENT: calf tenderness, clubbing, pedal edema Musculoskeletal exam: PRESENT: ambulatory Neurological exam: PRESENT: alert, awake, oriented to person, oriented to place , oriented to time, oriented to situation, CN II-XII grossly intact. ABSENT: motor sensory deficit Psychiatric exam: PRESENT: appropriate affect, normal mood. ABSENT: homicidal ideation, suicidal ideation Skin exam: PRESENT: dry, intact, warm. ABSENT: cyanosis, rash Results Laboratory Results: 04/18/17 07:03 04/17/17 23:20 04/17/17 04/17/17 04/17/17 09:49 10:55 15:06 WBC RBC Hgb Hct MCV MCH MCHC RDW Plt Count Seg Neutrophils % Lymphocytes % Monocytes % Eosinophils % Basophils % Absolute Neutrophils Absolute Lymphocytes Absolute Monocytes Absolute Eosinophils Absolute Basophils Sodium Cancelled 135.7 L 135.6 L Potassium Cancelled 4.7 4.8 Chloride Cancelled 104 104 Carbon Dioxide Cancelled 27 25 Anion Gap Cancelled 5 7 BUN Cancelled 35 H 34 H Creatinine Cancelled 1.40 H 1.38 H Est GFR ( Amer) Cancelled 46 L 47 L Est GFR (Non-Af Amer) Cancelled 38 L 38 L Glucose Cancelled 329 H 308 H Calcium Cancelled 9.6 9.8 Phosphorus Magnesium 04/17/17 04/17/17 04/18/17 19:10 23:20 07:03 WBC 6.2 RBC 4.61 Hgb 12.2 D Hct 38.6 MCV 84 MCH 26.4 L MCHC 31.6 L RDW 15.4 H Plt Count 231 Seg Neutrophils % 48.9 Lymphocytes % 37.4 Monocytes % 7.3 Eosinophils % 5.6 Basophils % 0.8 Absolute Neutrophils 3.0 Absolute Lymphocytes 2.3 Absolute Monocytes 0.5 Absolute Eosinophils 0.4 Absolute Basophils 0.1 Sodium 137.8 138.8 Potassium 4.5 4.6 Chloride 106 106 Carbon Dioxide 24 26 Anion Gap 8 7 BUN 30 H 26 H Creatinine 1.31 H 1.37 H Est GFR ( Amer) 49 L 47 L Est GFR (Non-Af Amer) 41 L 39 L Glucose 258 H 128 H Calcium 9.8 9.7 Phosphorus Magnesium 04/18/17 07:03 WBC RBC Hgb Hct MCV MCH MCHC RDW Plt Count Seg Neutrophils % Lymphocytes % Monocytes % Eosinophils % Basophils % Absolute Neutrophils Absolute Lymphocytes Absolute Monocytes Absolute Eosinophils Absolute Basophils Sodium Potassium Chloride Carbon Dioxide Anion Gap BUN Creatinine Est GFR ( Amer) Est GFR (Non-Af Amer) Glucose Calcium Phosphorus 3.2 Magnesium 2.1 Impressions: Abdomen Ultrasound 04/16/17 19:06 IMPRESSION: NORMAL ABDOMINAL ULTRASOUND. Acute Abdomen Series 04/16/17 19:07 IMPRESSION: NO RADIOGRAPHIC EVIDENCE FOR ACUTE ABDOMINAL DISEASE. Assessment & Plan - Diagnosis (1) Diabetic ketoacidosis Qualifiers: Diabetes mellitus type: type 2 Diabetes mellitus complication detail: without coma Qualified Code(s): E11.10 - Type 2 diabetes mellitus with ketoacidosis without coma Is this a current diagnosis for this admission?: Yes Plan: Gap closed. She is back on lantus with sliding scale coverage. Probable d/c in am (2) Hyperkalemia Is this a current diagnosis for this admission?: Yes Plan: Resolved with hydration (3) IVY (acute kidney injury) Is this a current diagnosis for this admission?: Yes Plan: Improved with IV (4) Uncontrolled diabetes mellitus Qualifiers: Diabetes mellitus type: type 2 Diabetes mellitus complication status: with hyperglycemia Qualified Code(s): E11.65 - Type 2 diabetes mellitus with hyperglycemia Is this a current diagnosis for this admission?: Yes Plan: Off insulin gtt and back on lantus (5) Altered mental status Qualifiers: Altered mental status type: unspecified Qualified Code(s): R41.82 - Altered mental status, unspecified Is this a current diagnosis for this admission?: Yes Plan: Resolved secondary to acidosis (6) Back pain Qualifiers: Back pain location: low back pain Chronicity: chronic Back pain laterality: unspecified Sciatica presence: without sciatica Qualified Code(s ): M54.5 - Low back pain; G89.29 - Other chronic pain; G89.29 - Other chronic pain Is this a current diagnosis for this admission?: Yes Plan: Chronic low back pain for which she takes oxycodone (7) Chronic pain Qualifiers: Chronic pain type: chronic pain syndrome Qualified Code(s): G89.4 - Chronic pain syndrome (8) HTN (hypertension) Qualifiers: Hypertension type: essential hypertension Qualified Code(s): I10 - Essential (primary) hypertension Is this a current diagnosis for this admission?: Yes Plan: Continue current medication she is normotensive (9) Metabolic acidosis Is this a current diagnosis for this admission?: Yes Plan: Improving with IV hydration and IV insulin - Time Time Spent with patient: 25-34 minutes Total Critical Time (Minutes): 20 Medications reviewed and adjusted accordingly: Yes Anticipated discharge: Home
[2017-04-18] MEDS ORDERED: INSULIN LISPRO 100 UNIT/ML 3 ML VIAL SUBCUT ONE (13:00)
[2017-04-18] MEDS: INSULIN LISPRO 100 UNIT/ML 3 ML VIAL SUBCUT SCH (16:03)
[2017-04-18] MEDS ORDERED: (PENDING PHARMACY ID) (Insulin Aspart [Novolog Flexpen] 30 UNIT) SUBCUT SCH (17:00)
[2017-04-18] MEDS: ATORVASTATIN CALCIUM 20 MG TABLET PO SCH (22:37)
[2017-04-19] MEDS: IPRATROPIUM/ALBUTEROL 0.5-2.5 MG/3 ML AMPUL NEB SCH ×2 (00:14→08:13)
[2017-04-19] MEDS: OXYCODONE HCL IR 5 MG TABLET PO PRN ×2 (02:06→06:03)
[2017-04-19] MEDS: LANSOPRAZOLE 30 MG TAB.RAP.DR PO SCH (05:09)
[2017-04-19] MEDS: GABAPENTIN 400 MG CAPSULE PO SCH (05:09)
[2017-04-19] MEDS: PREGABALIN 100 MG CAPSULE PO SCH (05:09)
[2017-04-19 06:17] LABS: ABSOLUTE BASOPHILS # (AUTO) 0.1 10^3/uL (0.0-0.2); ABSOLUTE EOSINOPHILS # (AUTO) 0.3 10^3/uL (0.0-0.6); ABSOLUTE LYMPHOCYTES (AUTO) 2.5 10^3/uL (0.5-4.7); ABSOLUTE MONOCYTES (AUTO) 0.4 10^3/uL (0.1-1.4); ABSOLUTE NEUT (AUTO) 1.6 10^3/uL (1.7-8.2); EOSINOPHILS % (AUTO) 5.7 % (0-6); HEMATOCRIT 36.6 % (36.0-47.0); HEMOGLOBIN 11.7 g/dL (12.0-15.5); LYMPHOCYTES % (AUTO) 51.7 % (13-45); MEAN CORPUSCULAR HEMOGLOBIN 26.7 pg (27.0-33.4); MEAN CORPUSCULAR HGB CONC 32.1 g/dL (32.0-36.0); MEAN CORPUSCULAR VOLUME 83 fl (80-97); MONOCYTES % (AUTO) 8.4 % (3-13); PLATELET COUNT 228 10^3/uL (150-450); RED BLOOD COUNT 4.41 10^6/uL (3.72-5.28); RED CELL DISTRIBUTION WIDTH 15.5 % (11.5-14.0); SEGMENTED NEUTROPHILS % (AUTO) 33.2 % (42-78); TOTAL CELLS COUNTED % (AUTO) 100 %; WHITE BLOOD COUNT 4.9 10^3/uL (4.0-10.5)
[2017-04-19 06:32] LABS: ANION GAP 6 (5-19); BLOOD UREA NITROGEN 21 mg/dL (7-20); CALCIUM 9.3 mg/dL (8.4-10.2); CARBON DIOXIDE 25 mmol/L (22-30); CHLORIDE 105 mmol/L (98-107); GLUCOSE 324 mg/dL (75-110); MAGNESIUM 2.3 mg/dL (1.6-2.3); POTASSIUM 4.7 mmol/L (3.6-5.0); SODIUM 135.9 mmol/L (137-145)
[2017-04-19] MEDS: INSULIN LISPRO 100 UNIT/ML 3 ML VIAL SUBCUT SCH (07:51)
[2017-04-19 09:33] VITALS: BP 113/69
[2017-04-19] MEDS: INSULIN GLARGINE,HUM.REC.ANLOG 1,000 UNIT/10 ML UNIT SUBCUT SCH (09:44)
[2017-04-19] MEDS: FAMOTIDINE 20 MG TABLET PO SCH (09:44)
[2017-04-19] MEDS: ENOXAPARIN SODIUM INJ 40 MG/0.4 ML DISP.SYRIN SUBCUT SCH (09:44)
[2017-04-19] MEDS: DOCUSATE SODIUM 100 MG CAPSULE PO SCH (09:44)
[2017-04-19] MEDS ORDERED: AMLODIPINE BESYLATE 5 MG TABLET PO SCH (10:00)
[2017-04-19] MEDS ORDERED: INSULIN LISPRO 100 UNIT/ML 3 ML VIAL SUBCUT SCH (11:21)
--- NOTE | 2017-04-19 11:26 | PDOC DISCHARGE SUMMARY ---
General - Admit/Disc Date/PCP Admission Date/Primary Care Provider: 04/16/17 23:52 BRENNEN CHRISTIAN MD Discharge Date: 04/19/17 - Additional Information Resuscitation Status: Full Code Discharge Diet: Diabetic Discharge Activity: Activity As Tolerated Home Medications: Amlodipine Besylate [Norvasc 5 mg Tablet] 5 mg PO DAILY 04/17/17 Budesonide [Pulmicort 180 mcg Flexhaler] 1 puff IH BIDP PRN 04/17/17 Ciprofloxacin HCl [Cipro 500 mg Tablet] 500 mg PO BID 04/17/17 Docusate Sodium [Colace 100 mg Capsule] 100 mg PO DAILYP PRN 04/17/17 Furosemide [Lasix 40 mg Tablet] 40 mg PO QAM 04/17/17 Gabapentin [Neurontin] 800 mg PO Q8 04/17/17 Insulin Glargine,Hum.rec.anlog [Lantus Solostar] 90 unit SQ Q12 04/17/17 Meclizine HCl [Antivert 25 mg Tablet] 25 mg PO TIDP PRN 04/17/17 Metronidazole [Flagyl 500 mg Tablet] 500 mg PO BID 04/17/17 Naproxen [Naprosyn] 500 mg PO BIDP PRN 04/17/17 Omeprazole 40 mg PO Q6AM 04/17/17 Ondansetron HCl [Zofran 4 mg Tablet] 1 tab PO TIDP PRN 04/17/17 Oxycodone HCl [Oxy-Ir 5 mg Tablet] 5 mg PO TIDP PRN 04/17/17 Potassium Chloride [Klor-Con 10] 10 meq PO DAILY 04/17/17 Pregabalin [Lyrica 100 mg Capsule] 100 mg PO Q8 04/17/17 Rosuvastatin Calcium [Crestor 10 mg Tablet] 10 mg PO QHS 04/17/17 Insulin Aspart [Novolog Flexpen] 40 unit SUBCUT MEALS #1 pe 04/19/17 History of Present Illness Patient complains of: abdominal pains high blood sugars History of Present Illness: KARIME JARRELL is a 66 year old female with known diabetes and prior history of DKA. For the last week she has been constipated and had increasing abdominal pain. She did not feel like eating and so stopped taking her insulin for several days she did drink a lot of fruit juice. She presents to the emergency room with elevated blood sugar and potassium. She was treated emergently by the physician in the ED for her potassium. Venous blood gases showed her to be acidemic and she was referred to us for further treatment of her diabetic ketoacidosis. Hospital Course Hospital Course: (1) Diabetic ketoacidosis Qualifiers: Diabetes mellitus type: type 2 Diabetes mellitus complication detail: without coma Qualified Code(s): E11.10 - Type 2 diabetes mellitus with ketoacidosis without coma Is this a current diagnosis for this admission?: Yes Plan: Gap closed The patient is poorly controlled We increased lispro before meals to 40 units She is she is to continue prior doses of Lantus (2) Hyperkalemia Is this a current diagnosis for this admission?: Yes Plan: Resolved with hydration (3) IVY (acute kidney injury) Is this a current diagnosis for this admission?: Yes Plan: Improved with IV (4) Uncontrolled diabetes mellitus Qualifiers: Diabetes mellitus type: type 2 Diabetes mellitus complication status: with hyperglycemia Qualified Code(s): E11.65 - Type 2 diabetes mellitus with hyperglycemia Is this a current diagnosis for this admission?: Yes Plan: (5) Altered mental status Qualifiers: Altered mental status type: unspecified Qualified Code(s): R41.82 - Altered mental status, unspecified Is this a current diagnosis for this admission?: Yes Plan: Resolved (6) Back pain Qualifiers: Back pain location: low back pain Chronicity: chronic Back pain laterality: unspecified Sciatica presence: without sciatica Qualified Code(s ): M54.5 - Low back pain; G89.29 - Other chronic pain; G89.29 - Other chronic pain Is this a current diagnosis for this admission?: Yes Plan: Chronic low back pain for which she takes oxycodone (7) Chronic pain Qualifiers: Chronic pain type: chronic pain syndrome Qualified Code(s): G89.4 - Chronic pain syndrome (8) HTN (hypertension) Qualifiers: Hypertension type: essential hypertension Qualified Code(s): I10 - Essential (primary) hypertension Is this a current diagnosis for this admission?: Yes Plan: Continue current medication she is normotensive (9) Metabolic acidosis Is this a current diagnosis for this admission?: Yes Plan: Improved with IV hydration and IV insulin Physical Exam Vital Signs: Temp Pulse Resp BP Pulse Ox 98.2 F 86 16 113/69 97 04/19/17 08:57 04/19/17 08:57 04/19/17 08:57 04/19/17 08:57 04/19/17 08:57 Intake & Output 04/18/17 04/19/17 04/20/17 00:59 00:59 00:59 Intake Total 400 2855 300 Balance 400 2855 300 Weight 93.2 kg 94.1 kg 95.5 kg General appearance: PRESENT: no acute distress, obese, well-developed, well- nourished Head exam: PRESENT: atraumatic, normocephalic Eye exam: PRESENT: conjunctiva pink, EOMI, PERRLA. ABSENT: scleral icterus Ear exam: PRESENT: normal external ear exam Mouth exam: PRESENT: moist, tongue midline Neck exam: ABSENT: carotid bruit, JVD, lymphadenopathy, thyromegaly Respiratory exam: PRESENT: clear to auscultation rodrigue. ABSENT: rales, rhonchi, wheezes Cardiovascular exam: PRESENT: RRR. ABSENT: diastolic murmur, rubs, systolic murmur Pulses: PRESENT: normal carotid pulses, normal radial pulses Vascular exam: PRESENT: normal capillary refill GI/Abdominal exam: PRESENT: normal bowel sounds, soft. ABSENT: distended, guarding, mass, organolmegaly, rebound, tenderness Rectal exam: PRESENT: deferred Extremities exam: PRESENT: full ROM. ABSENT: calf tenderness, clubbing, pedal edema Musculoskeletal exam: PRESENT: ambulatory Neurological exam: PRESENT: alert, awake, oriented to person, oriented to place , oriented to time, oriented to situation, CN II-XII grossly intact. ABSENT: motor sensory deficit Psychiatric exam: PRESENT: appropriate affect, normal mood. ABSENT: homicidal ideation, suicidal ideation Skin exam: PRESENT: dry, intact, warm. ABSENT: cyanosis, rash Results Laboratory Results: 04/19/17 05:03 04/19/17 05:03 04/19/17 04/19/17 05:03 05:03 WBC 4.9 RBC 4.41 Hgb 11.7 L Hct 36.6 MCV 83 MCH 26.7 L MCHC 32.1 RDW 15.5 H Plt Count 228 Seg Neutrophils % 33.2 L Lymphocytes % 51.7 H Monocytes % 8.4 Eosinophils % 5.7 Basophils % 1.0 Absolute Neutrophils 1.6 L Absolute Lymphocytes 2.5 Absolute Monocytes 0.4 Absolute Eosinophils 0.3 Absolute Basophils 0.1 Sodium 135.9 L Potassium 4.7 Chloride 105 Carbon Dioxide 25 Anion Gap 6 BUN 21 H Creatinine 1.09 Est GFR ( Amer) > 60 Est GFR (Non-Af Amer) 51 L Glucose 324 H Calcium 9.3 Magnesium 2.3 Impressions: Abdomen Ultrasound 04/16/17 19:06 IMPRESSION: NORMAL ABDOMINAL ULTRASOUND. Acute Abdomen Series 04/16/17 19:07 IMPRESSION: NO RADIOGRAPHIC EVIDENCE FOR ACUTE ABDOMINAL DISEASE. Plan Discharge Plan: Follow-up with family doctor within a week time Dr. Haynes Time Spent: Greater than 30 Minutes
== END 2017-04-19 13:21 | disposition home or self-care (01) | DRG 638 ==
LOC: ER 16:20 → EH 23:52 → 3W 04-17 13:04
PROVIDERS: ADMIT Internal Medicine; ATTEND Internal Medicine
PROC: 3E0F73Z Introduction of Anti-inflammatory into Respiratory Tract, Via Natural or Artificial Opening (ICD-10-PCS; principal; 2017-04-17)
DX: E11.10 Type 2 diabetes mellitus with ketoacidosis without coma (principal); N17.9 Acute kidney failure, unspecified; K59.00 Constipation, unspecified; E87.5 Hyperkalemia; M54.5 Low back pain; G89.4 Chronic pain syndrome; I10 Essential (primary) hypertension; J45.909 Unspecified asthma, uncomplicated; E11.22 Type 2 diabetes mellitus with diabetic chronic kidney disease; F32.9 Major depressive disorder, single episode, unspecified; E78.00 Pure hypercholesterolemia, unspecified; I44.7 Left bundle-branch block, unspecified; Z91.14 Patient's other noncompliance with medication regimen; Z79.4 Long term (current) use of insulin; Z79.899 Other long term (current) drug therapy; Z60.2 Problems related to living alone; Z83.3 Family history of diabetes mellitus
CPT/HCPCS: 36415; 74022; 76700; 80048; 80053; 80061; 80307; 81001; 82803; 82962; 83036; 83690; 83735; 84100; 85025; 93005; 93010; 94640; 96361; 96374; 96375; 99291; J0610; J1650; J1815; J1885; J2270; J3490; J7030; J7620

== ENCOUNTER → 2017-06-12 | Outpatient (CLI) | payer MEDICARE, MEDICAID ==
--- NOTE | 2017-06-12 15:21 | RADIOLOGY REPORT (SQ) ---
EXAM DESCRIPTION: VENOUS UNILATERAL LOWER COMPLETED DATE/TIME: 06/12/2017 12:38 pm REASON FOR STUDY: LLE EDEMA, PAIN R60.0 LOCALIZED EDEMA M79.606 PAIN IN LEG, UNSPECIFIED COMPARISON: None. TECHNIQUE: Dynamic and static roman scale and color images acquired of the left leg venous system. Se lected spectral images acquired with additional compression and augmentation maneuvers. The contralat eral common femoral vein and saphenofemoral junction were also imaged. Images stored on PACS. LIMITATIONS: None. FINDINGS: COMMON FEMORAL: Normal phasicity, compression and augmentation. No visualized echogenic ma terial on roman scale. No defects on color images. FEMORAL: Normal compression and augmentation. No visualized echogenic material on roman scale. No defe cts on color images. POPLITEAL: Normal compression, augmentation. No visualized echogenic material on roman scale. No defec ts on color images. CALF VESSELS: Normal compression, augmentation. No visualized echogenic material on roman scale. No de fects on color images. GSV and SSV: Normal compression, augmentation. No visualized echogenic material on roman scale. No def ects on color images. ANY DEEP VENOUS INSUFFICIENCY: Not evaluated. ANY EVIDENCE OF POPLITEAL CYST: No. OTHER: No other significant finding. CONTRALATERAL COMMON FEMORAL VEIN AND SAPHENOFEMORAL JUNCTION: Normal phasicity, compression and augmentation. No visualized echogenic material on roman scale. No de fects on color images. IMPRESSION: NO EVIDENCE OF DVT OR SVT IN THE LEFT LEG. TECHNICAL DOCUMENTATION: JOB ID: [id number] [employer]- All Rights Reserved Reading location - IP/workstation name: [email or web address]
== END ==
LOC: SP 11:57
PROVIDERS: ATTEND Internal Medicine
DX: R60.0 Localized edema (principal); M79.606 Pain in leg, unspecified
CPT/HCPCS: 93971

== ENCOUNTER 2017-08-23 15:07 | Emergency (ER) | payer MEDICARE, MEDICAID ==
[2017-08-23] MEDS ORDERED: HYDROCODONE/ACETAMINOPHEN 5-325 MG TABLET PO ONE (15:22)
--- NOTE | 2017-08-23 15:25 | ER Document Report ---
ED Medical Screen (RME) - General Chief Complaint: Leg Swelling Stated Complaint: LEG SWELLING Time Seen by Provider: 08/23/17 15:22 Notes: 66-year-old female presents emergency department complaining of right leg swelling for the past week. Her chief complaint is swelling 1 month but in the room she states it has only been 1 week. Denies any trauma, denies any history of DVT or PE, denies any history of surgery or hormone use, denies smoking. States she saw a doctor yesterday but cannot tell me what she saw the doctor for or what sort of workup they did. Denies any chest pain or shortness of breath. TRAVEL OUTSIDE OF THE [place] IN LAST 30 DAYS: No - Related Data Allergies/Adverse Reactions: No Known Allergies Allergy (Verified 08/23/17 15:08) Past Medical History - General Information source: Patient - Social History Cigarette use (# per day): No Chew tobacco use (# tins/day): No Frequency of alcohol use: None Drug Abuse: None - Past Medical History Cardiac Medical History: Reports: Hx Hypercholesterolemia, Hx Hypertension Pulmonary Medical History: Reports: Hx Asthma Denies: Hx Tuberculosis Endocrine Medical History: Reports: Hx Diabetes Mellitus Type 1, Hx Diabetes Mellitus Type 2 Renal/ Medical History: Denies: Hx Peritoneal Dialysis Psychiatric Medical History: Reports: Hx Depression Past Surgical History: Reports: Hx Appendectomy, Hx Section - x2 - Immunizations Hx Diphtheria, Pertussis, Tetanus Vaccination: Yes - 2011 History of Influenza Vaccine for 12/2016 - 05/2017 Season: Yes Influenza Administration Date for 12/2016 - 05/2017 Season: 01/30/17 Review of Systems - Review of Systems Constitutional: No symptoms reported Cardiovascular: No symptoms reported Respiratory: No symptoms reported Musculoskeletal: See HPI, Leg swelling Physical Exam - Vital signs Vitals: Temp Pulse Resp BP Pulse Ox 97.7 F 108 H 18 155/76 H 95 08/23/17 15:13 08/23/17 15:13 08/23/17 15:13 08/23/17 15:13 08/23/17 15:13 Interpretation: Hypertensive, Tachycardic - General General appearance: Alert - Mumbles occasionally but able to be understood - HEENT Head: Normocephalic, Atraumatic - Respiratory Respiratory status: No respiratory distress - Extremities Notes: 2+ pitting edema right lower extremity, no seeping, there is no edema in the left lower extremity. Dorsalis pedis pulses are 2+ bilaterally. Course - Re-evaluation Re-evalutation: 08/23/17 15:24 Concern for possible DVT, ultrasound will be ordered. Patient is a somewhat poor historian. - Vital Signs Vital signs: Temp Pulse Resp BP Pulse Ox 97.7 F 108 H 18 155/76 H 95 08/23/17 15:13 08/23/17 15:13 08/23/17 15:13 08/23/17 15:13 08/23/17 15:13 Doctor's Discharge - Discharge Referrals: BRENNEN CHRISTIAN MD [Primary Care Provider] - Follow up as needed
[2017-08-23 15:48] LABS: ABSOLUTE BASOPHILS # (AUTO) 0.1 10^3/uL (0.0-0.2); ABSOLUTE LYMPHOCYTES (AUTO) 2.1 10^3/uL (0.5-4.7); ABSOLUTE MONOCYTES (AUTO) 1.3 10^3/uL (0.1-1.4); ABSOLUTE NEUT (AUTO) 12.9 10^3/uL (1.7-8.2); BASOPHILS % (AUTO) 0.7 % (0-2); EOSINOPHILS % (AUTO) 0.1 % (0-6); HEMATOCRIT 43.8 % (36.0-47.0); LYMPHOCYTES % (AUTO) 12.6 % (13-45); MEAN CORPUSCULAR HEMOGLOBIN 26.5 pg (27.0-33.4); MEAN CORPUSCULAR HGB CONC 31.9 g/dL (32.0-36.0); MEAN CORPUSCULAR VOLUME 83 fl (80-97); MONOCYTES % (AUTO) 7.8 % (3-13); PLATELET COUNT 212 10^3/uL (150-450); RED BLOOD COUNT 5.28 10^6/uL (3.72-5.28); RED CELL DISTRIBUTION WIDTH 16.3 % (11.5-14.0); SEGMENTED NEUTROPHILS % (AUTO) 78.8 % (42-78); TOTAL CELLS COUNTED % (AUTO) 100 %; WHITE BLOOD COUNT 16.3 10^3/uL (4.0-10.5)
[2017-08-23 15:55] LABS: INTERNATIONAL RATION (INR) 1.04; PARTIAL THROMBOPLASTIN TIME 29.9 SEC (23.5-35.8); PROTHROMBIN TIME 14.2 SEC (11.4-15.4)
[2017-08-23 16:08] LABS: ANION GAP 19 (5-19); BLOOD UREA NITROGEN 18 mg/dL (7-20); CALCIUM 9.5 mg/dL (8.4-10.2); CARBON DIOXIDE 23 mmol/L (22-30); CHLORIDE 100 mmol/L (98-107); GLUCOSE 378 mg/dL (75-110); POTASSIUM 4.4 mmol/L (3.6-5.0); SODIUM 141.5 mmol/L (137-145)
--- NOTE | 2017-08-23 17:16 | XCELERA REPORT ---
[address] [address] Lower Extremity Venous Evaluation Name: EDUARDA JARRELL Age: 66 yrs Gender: Female : 1950 Patient Status: Preadmit Patient Location: ER Study Date: 08/23/2017 03:59 PM Procedure: A unilateral duplex scan of the right lower extremity veins was performed. The evaluation included responses to compression and other maneuvers. The contralateral femoral vein was not evaluated. Reason For Study: right leg swelling Ordering Physician: DAMON WARNER Performed By: Karely Costello Right Sided Venous Evaluation Normal vessel filling wall to wall, compression and augmentation as well as Colour flow down to the infrageniculate veins. Interpretation Summary Normal compression, patency, spontaneous and phasic flow of the right lower extremity veins. : DAMON WARNER > Kenny Butt
[2017-08-23 18:22] LABS: AMORPHOUS SEDIMENT,URINE TRACE /HPF; APPEARANCE,URINE SLIGHTLY-CLOUDY; BILIRUBIN,URINE NEGATIVE (NEGATIVE); COLOR,URINE YELLOW; GLUCOSE, URINE >=500 mg/dL (NEGATIVE); KETONES,URINE 20 mg/dL (NEGATIVE); LEUKOCYTE ESTERASE,URINE NEGATIVE (NEGATIVE); NITRITE,URINE NEGATIVE (NEGATIVE); PROTEIN,URINE >=500 mg/dL (NEGATIVE); URINE SPECIFIC GRAVITY 1.027; UROBILINOGEN,URINE NEGATIVE mg/dL (<2.0)
--- NOTE | 2017-08-23 19:17 | RADIOLOGY REPORT (SQ) ---
EXAM DESCRIPTION: U/S NON-OB PELVIS LTD W/O DOP COMPLETED DATE/TIME: 08/23/2017 7:07 pm REASON FOR STUDY: Groin pain with lump in right groin COMPARISON: None. TECHNIQUE: Dynamic and static grayscale images acquired of the localized site of clinical concern an d recorded on PACS. Additional selected color Doppler and spectral images recorded. SITE OF CONCERN: Right and left groin LIMITATIONS: None. FINDINGS: SKIN AND SUBCUTANEOUS TISSUES: Prominent lymph nodes right groin measuring up to 1.6 cm. Normal lymph nodes left groin. DEEP SOFT TISSUES/MUSCLES: No masses. No fluid collections. No edema. VASCULAR: No increased or decreased vascularity. No occlusions. OTHER: No other significant finding. IMPRESSION: PROMINENT LYMPH NODES RIGHT GROIN MEASURING UP TO 1.6 CM PRESUMABLY REACTIVE TO INFECTIO US OR INFLAMMATORY PROCESS. CLINICAL FOLLOWUP IS RECOMMENDED. TECHNICAL DOCUMENTATION: JOB ID: [id number] [employer]- All Rights Reserved Reading location - IP/workstation name: [email or web address]
--- NOTE | 2017-08-23 19:18 | RADIOLOGY REPORT (SQ) ---
EXAM DESCRIPTION: U/S NON-OB PELVIS TV W/O DOP COMPLETED DATE/TIME: 08/23/2017 7:07 pm REASON FOR STUDY: Right pelvic pain COMPARISON: None. TECHNIQUE: Dynamic and static grayscale images acquired of the pelvis via transabdominal and transva ginal approach and recorded on PACS. Additional selected color Doppler and spectral images recorded. LIMITATIONS: None. FINDINGS: UTERUS: Contour normal. No mass. ENDOMETRIAL STRIPE: No focal or generalized thickening. No masses. CERVIX: No nabothian cysts. RIGHT OVARY AND DOPPLER: Ovary not visualized. LEFT OVARY AND DOPPLER: Ovary not visualized. FREE FLUID: None noted. OTHER: No other significant finding. MEASUREMENTS: UTERUS: 8.5 x 4.8 x 4.4 cm. ENDOMETRIAL STRIPE: 7.7 mm. RIGHT OVARY: Not visualized. LEFT OVARY: Not visualized. IMPRESSION: NORMAL PELVIC ULTRASOUND BY TRANSABDOMINAL AND TRANSVAGINAL TECHNIQUE. OVARIES NOT VISU ALIZED. TECHNICAL DOCUMENTATION: JOB ID: [id number] [employer]- All Rights Reserved Reading location - IP/workstation name: [email or web address]
--- NOTE | 2017-08-23 19:59 | ER Document Report ---
ED General - General Chief Complaint: Leg Swelling Stated Complaint: LEG SWELLING Time Seen by Provider: 08/23/17 15:22 Mode of Arrival: Ambulatory Information source: Patient Notes: 66-year-old female presented to ED for complaint of bilateral leg pain and swelling for at least a month the right leg larger than the left. She states the left right leg has gotten larger over the last week. She states she was seen by 1 of the doctors in [place] and they told her she had a lump in her leg. She states last time she saw her Dr. Barton was about 3 months ago when she has an appointment with him next month. TRAVEL OUTSIDE OF THE [place] IN LAST 30 DAYS: No - HPI Onset: Other - 1 month Onset/Duration: Gradual, Worse Quality of pain: Achy, Pressure Severity: Severe Pain Level: 5 Associated symptoms: Leg swelling, Other - Lump in right groin, right leg edema greater than left. Right pelvic pain. Exacerbated by: Movement, Walking Relieved by: Denies Similar symptoms previously: Yes Recently seen / treated by doctor: Yes - Related Data Allergies/Adverse Reactions: No Known Allergies Allergy (Verified 08/23/17 15:08) Past Medical History - General Information source: Patient - Social History Smoking Status: Never Smoker Cigarette use (# per day): No Chew tobacco use (# tins/day): No Smoking Education Provided: No Frequency of alcohol use: None Drug Abuse: None Lives with: Family Family History: Reviewed & Not Pertinent, DM Patient has suicidal ideation: No Patient has homicidal ideation: No - Past Medical History Cardiac Medical History: Reports: Hx Hypercholesterolemia, Hx Hypertension Pulmonary Medical History: Reports: Hx Asthma EENT Medical History: Reports: None Neurological Medical History: Reports: None Endocrine Medical History: Reports: Hx Diabetes Mellitus Type 2 Renal/ Medical History: Reports: None Malignancy Medical History: Reports: None GI Medical History: Reports: None Musculoskeltal Medical History: Reports None Skin Medical History: Reports None Psychiatric Medical History: Reports: Hx Depression Traumatic Medical History: Reports: None Infectious Medical History: Reports: None Past Surgical History: Reports: Hx Appendectomy, Hx Section - x2 - Immunizations Hx Diphtheria, Pertussis, Tetanus Vaccination: Yes - 2011 Hx Pneumococcal Vaccination: 12/17/10 Review of Systems - Review of Systems Constitutional: No symptoms reported EENT: No symptoms reported Cardiovascular: No symptoms reported Respiratory: No symptoms reported Gastrointestinal: Abdominal pain - Right pelvic pain Genitourinary: No symptoms reported Female Genitourinary: No symptoms reported Musculoskeletal: Leg swelling, Other - Lump in right groin Skin: No symptoms reported Hematologic/Lymphatic: No symptoms reported Neurological/Psychological: No symptoms reported -: Yes All other systems reviewed and negative Physical Exam - Vital signs Vitals: Temp Pulse Resp BP Pulse Ox 97.7 F 108 H 18 155/76 H 95 08/23/17 15:13 08/23/17 15:13 08/23/17 15:13 08/23/17 15:13 08/23/17 15:13 Interpretation: Normal - General General appearance: Appears well, Alert - HEENT Head: Normocephalic, Atraumatic Eyes: Normal Pupils: PERRL - Respiratory Respiratory status: No respiratory distress Chest status: Nontender Breath sounds: Normal Chest palpation: Normal - Cardiovascular Rhythm: Regular Heart sounds: Normal auscultation Murmur: No - Abdominal Inspection: Normal Distension: No distension Bowel sounds: Normal Tenderness: Nontender Organomegaly: No organomegaly - Back Back: Normal, Nontender - Extremities General upper extremity: Normal inspection, Nontender, Normal color, Normal ROM , Normal temperature General lower extremity: Normal inspection, Nontender, Normal color, Normal ROM , Normal temperature, Normal weight bearing. No: Son's sign - Neurological Neuro grossly intact: Yes Cognition: Normal Orientation: AAOx4 Jr Coma Scale Eye Opening: Spontaneous Lowell Coma Scale Verbal: Oriented [place] Coma Scale Motor: Obeys Commands Lowell Coma Scale Total: 15 Speech: Normal Motor strength normal: LUE, RUE, LLE, RLE Sensory: Normal - Psychological Associated symptoms: Normal affect, Normal mood - Skin Skin Temperature: Warm Skin Moisture: Dry Skin Color: Normal Course - Re-evaluation Re-evalutation: 08/23/17 20:04 Discussed labs, Doppler, and ultrasound with dianne Powell she agreed patient could still go home. Patient was given instructions to call her primary doctor tomorrow and schedule a follow-up appointment next week. Patient was given a CD of her ultrasounds and Doppler as well as written reports of her labs to follow-up with her primary doctor. - Vital Signs Vital signs: Temp Pulse Resp BP Pulse Ox 99.3 F 84 18 139/75 H 97 08/23/17 20:17 08/23/17 20:17 08/23/17 20:17 08/23/17 20:17 08/23/17 20:17 - Laboratory Result Diagrams: 08/23/17 15:36 08/23/17 15:36 Laboratory results interpreted by me: 08/23/17 08/23/17 08/23/17 15:36 15:36 18:03 WBC 16.3 H MCH 26.5 L MCHC 31.9 L RDW 16.3 H Seg Neutrophils % 78.8 H Lymphocytes % 12.6 L Absolute Neutrophils 12.9 H Est GFR ( Amer) 54 L Est GFR (Non-Af Amer) 45 L Glucose 378 H Urine Protein >=500 H Urine Glucose (UA) >=500 H Urine Ketones 20 H Urine Blood MODERATE H - Diagnostic Test Radiology reviewed: Image reviewed, Reports reviewed Discharge - Discharge Clinical Impression: Bilateral leg pain, right leg and foot edema, lymphadenopathy right groin, Pelvic pain Condition: Stable Disposition: HOME, SELF-CARE Additional Instructions: Please call your primary doctor tomorrow. Tell him you have an elevated white count, an enlarged lymph node in your right groin, right pelvic pain, your pelvic ultrasound was negative, your Doppler to the right leg was negative, and you can tell him you have lab results with you that you can tell him the results of if he needs over the phone or you can bring the written reports of the labs and the CD of the ultrasound and Doppler with you to your visit. It is recommended that you see your doctor next week. We do not know where the enlarged nodes or coming from. It could be a number of different things to include cancer. If the lymph nodes do not go away in a month's time they will need to be reevaluated. Please be sure to call your doctor tomorrow and schedule a visit next week. Leg Pain, Nonspecific We did not find an obvious cause for your leg pain. There's no sign of blood clot, infection, or other serious disease. Possible causes of vague leg pain include muscle or joint inflammation, disc disease in the lower back, pressure on the nerves in the back, or reduced blood flow through the arteries of the leg. Rest the leg. Pain can be eased with an antiinflammatory pain medicine such as ibuprofen. If the pain involves a small area, a heating pad might help. Call the doctor or return if the leg becomes swollen, weak, discolored, or increasingly painful, or if you develop any other significant change in your health. Edema, Peripheral You have swelling in your legs. This is called peripheral edema. It can be caused by "leaky capillaries," inflammation, disease of the leg veins, or excess salt and water in your body. Edema may be a sign of heart, kidney, or liver disease. A medical evaluation can determine if there is a serious underlying cause for your edema. Avoid prolonged standing. If you must sit for a long time, occasionally get up and walk around or elevate your legs. Support stockings can be helpful in limiting swelling. Often diuretic or water pills are used to remove excess salt and water from your body. Call the doctor or return if you develop increased swelling, pain, or redness, shortness of breath, chest pain, or any other significant change. PELVIC PAIN: There are many causes of pain in the pelvic area. The cause could be the tubes, ovaries, uterus, intestines, appendix, pelvic muscles and connective tissue, or the urinary tract. The cause of your pelvic pain is not clear. However, it seems safe to treat you outside the hospital. If the pain sounds like a temporary problem, we sometimes wait to see if it goes away. Other patients may need additional tests, such as pelvic ultrasound or cultures. Conditions may change. Call us or come back for reexamination if any problems occur, such as: (1) Pain that becomes more severe, steady, or becomes concentrated in one specific area. Also, pain that is more severe with movement or coughing. (2) Vomiting that persists or becomes more frequent. (3) Blood in the vomitus, urine, or bowel movements. Blood in the stool may have a tarry or black appearance. (4) Shaking chills or fever greater than 100 degrees. (5) The abdomen becomes more distended or swollen. (6) Bowel movements cease. (7) Heavy vaginal bleeding. Lymphadenopathy You have enlargement of lymph glands, called lymphadenopathy. Lymph glands filter tissue fluids. They help to fight infection. Most of the time, enlarged lymph glands are not serious. Lymph glands may react to a viral or bacterial infection by becoming swollen and painful. When the infection goes away, the glands shrink. Sometimes a lymph gland will remain enlarged for a long time after an infection. Occasionally, a lymph gland may be overwhelmed by infection and form an abscess. If an enlarged lymph gland has signs that are suspicious for tumor, the doctor will recommend a biopsy. A suspicious gland usually is NOT painful, grows very slowly, and is rock-hard to touch. See the doctor or return if there is increasing swelling and redness, high fever, difficulty breathing, or any other change for the worse. FOLLOW-UP CARE: If you have been referred to a physician for follow-up care, call the physician s office for an appointment as you were instructed or within the next two days. If you experience worsening or a significant change in your symptoms, notify the physician immediately or return to the Emergency Department at any time for re-evaluation. Forms: Elevated Blood Pressure Referrals: BRENNEN CHRISTIAN MD [Primary Care Provider] - Follow up tomorrow
[2017-08-23 20:18] VITALS: BP 139/75
== END 2017-08-23 20:22 | disposition home or self-care (01) ==
LOC: ER 15:07
DX: M79.604 Pain in right leg (principal); M79.605 Pain in left leg; R60.0 Localized edema; R10.2 Pelvic and perineal pain; R10.31 Right lower quadrant pain; R59.1 Generalized enlarged lymph nodes; I10 Essential (primary) hypertension; J45.909 Unspecified asthma, uncomplicated; E11.9 Type 2 diabetes mellitus without complications
CPT/HCPCS: 99284; 51701; 36415; 85025; 85610; 85730; 80048; 81001; 93971 ×2; 76830; 76857; A9270

== ENCOUNTER 2017-08-25 15:19 | Emergency (ER) | payer MEDICARE, MEDICAID ==
--- NOTE | 2017-08-25 15:59 | ER Document Report ---
ED General <ADAMA PICKENS - Last Filed: 08/26/17 00:39> - General Mode of Arrival: Ambulatory Information source: Patient TRAVEL OUTSIDE OF THE [place] IN LAST 30 DAYS: No <HERB TERAN - Last Filed: 08/26/17 11:22> - General Chief Complaint: Feet Swelling Stated Complaint: FOOT PAIN Time Seen by Provider: 08/25/17 15:57 - HPI Notes: 66-year-old female with diabetes type 2, HTN, hypercholesterolemia, asthma and is noncompliant and a poor historian presents to the ED today for reevaluation of her right lower leg swelling, pain with a blister that she noticed today. Patient was seen on 08/23/2017 in the ED for similar issues and was negative for DVT. Patient was advised to follow-up with PCP. Patient reports pain is worse , 7 out of 10, constant and stabbing. Worse with time. Pt is unsure of the medications she is taking. Patient states that she is unable to bear full weight. Denies any fevers reports chills. Patient is a poor historian as to what her current present illnesses (HERB TERAN) - Related Data Allergies/Adverse Reactions: No Known Allergies Allergy (Verified 08/25/17 15:23) Past Medical History - Social History Smoking Status: Unknown if Ever Smoked Family History: Reviewed & Not Pertinent, DM - Past Medical History Cardiac Medical History: Reports: Hx Hypercholesterolemia, Hx Hypertension Pulmonary Medical History: Reports: Hx Asthma Denies: Hx Tuberculosis Endocrine Medical History: Reports: Hx Diabetes Mellitus Type 1, Hx Diabetes Mellitus Type 2 Renal/ Medical History: Denies: Hx Peritoneal Dialysis Psychiatric Medical History: Reports: Hx Depression Past Surgical History: Reports: Hx Appendectomy, Hx Section - x2 - Immunizations Hx Diphtheria, Pertussis, Tetanus Vaccination: Yes - 2011 Hx Pneumococcal Vaccination: 12/17/10 <HERB TERAN - Last Filed: 08/26/17 11:22> Review of Systems - Review of Systems Constitutional: See HPI EENT: No symptoms reported Cardiovascular: No symptoms reported Respiratory: No symptoms reported Gastrointestinal: No symptoms reported Genitourinary: No symptoms reported Female Genitourinary: No symptoms reported Musculoskeletal: No symptoms reported Skin: No symptoms reported Hematologic/Lymphatic: No symptoms reported Neurological/Psychological: No symptoms reported <HERB TERAN - Last Filed: 08/26/17 11:22> Physical Exam <ADAMA PICKENS - Last Filed: 08/26/17 00:39> <HERB TERAN - Last Filed: 08/26/17 11:22> - Vital signs Vitals: Temp Pulse Resp BP Pulse Ox 99.0 F 94 16 146/75 H 95 08/25/17 15:25 08/25/17 15:25 08/25/17 15:25 08/25/17 15:25 08/25/17 15:25 - Notes Notes: PHYSICAL EXAMINATION: GENERAL: Well-appearing, well-nourished and in no acute distress. HEAD: Atraumatic, normocephalic. EYES: Pupils equal round and reactive to light, extraocular movements intact, conjunctiva are normal. ENT: Nares patent, oropharynx clear without exudates. Moist mucous membranes. NECK: Normal range of motion, supple without lymphadenopathy LUNGS: Breath sounds clear to auscultation bilaterally and equal. No wheezes rales or rhonchi. HEART: Regular rate and rhythm without murmurs ABDOMEN: Soft, nontender, nondistended abdomen. No guarding, no rebound. No masses appreciated. Female : deferred Musculoskeletal: Normal range of motion, no pitting or edema. No cyanosis. Lower extremity with erythema, pitting edema +2 with a noted blister on, intact. Distal pulses +2 bilaterally and equally. Noted warmth to touch to right lower extremity. Full motor and sensory function of bilateral lower extremities. No open wounds or drainage. Limited APROM. distal pulses + 2 BLE equally. Full motor and sensory function of bilateral lower extremities. No noted open wounds or abrasion. Normal gait. No vascular compromise. Peroneal nerve is intact with strong eversion and plantar flexion. Negative anterior drawer test. NEUROLOGICAL: Cranial nerves grossly intact. Normal speech, normal gait. Normal sensory, motor exams PSYCH: Normal mood, normal affect. SKIN: Warm, Dry, normal turgor, no rashes or lesions noted. (HERB TERAN) Course - Laboratory Result Diagrams: 08/25/17 17:05 08/25/17 18:30 <ADAMA PICKENS - Last Filed: 08/26/17 00:39> - Laboratory Result Diagrams: 08/25/17 17:05 08/25/17 18:30 <HERB TERAN - Last Filed: 08/26/17 11:22> - Re-evaluation Re-evalutation: 08/25/17 Patient had pending labs when I assumed care, these were reviewed and shows elevated troponin at 0.166 which is above our AMI cutoff. Previous BNP was almost 4000, today is 2000, patient has no vascular congestion on x-ray, no rales on exam. No renal failure. I questioned patient if she had any episodes of chest pain or concerning symptoms, she states that she had an episode earlier where she felt nauseated and short of breath but cannot recall any chest pain. Patient is unable to tell me what time this was today. EKG shows chronic left bundle branch block. Aspirin was given. Vancomycin also given in addition to the cefepime for additional coverage for her diabetic foot infection. EKG was repeated, shows no change, discussed with Dr. Tony, will trend for possible admission here. Troponin cycled but hemolyzed, cycled again and she has unfortunately an increase to 0.188. Recommendation is for transfer to tertiary center for elevated troponin above acute [place] cut off. Patient has been given Lovenox. On reevaluation she is complaining of pain in her leg but no chest pain or shortness of breath. Given morphine. Vital signs unchanged. Workup was discussed in detail with patient and significant other, patient requests to go to [facility]. 08/26/17 00:[address] Rios at [facility], patient will be accepted for transfer, they do not have beds yet, pending one opening up. (ADAMA PICKENS) 08/25/172029 66-year-old female who has a low-grade fever of 99 presents for reevaluation of her right lower extremity with increased pain, new blister with worsening swelling. On examination it appears that patient is developing a cellulitis. Patient reports she is having "pain all over and out. Patient is a poor historian and is noncompliant with her medication. Blood cultures obtained. CBC shows a leukocytosis of 14 with a shift. First set CMP hemolysis size, BMP at 2080, unable to give Lasix at this time due to not having a potassium, lab is redrawing patient. Patient given 1 g of cefepime IV after blood cultures. Awaiting CMP and cardiac enzymes. disposition given to DEEPALI Mullen at bedside at 202908/26/17 0730 Bedside report given to DEEPALI Smith. Patient is waiting for transfer to [facility] for further management of her uptrending troponins, CHF as well as her right lower extremity cellulitis with foreign body. P recent has had broad-spectrum antibiotic coverage with vancomycin as well as cefepime for diabetic foot infection. Patient remains afebrile, vitals stable and in no distress at bedside. 0815-on reevaluation patient states she is having some pain, the pain medication given. Will repeat troponin for trending. 0900 patient's family at bedside, all questions and concerns answered. Patient remains afebrile, vitals stable and in no distress. Pain has reduced to 2 out of 10. 11:00-Ambulance at bedside, patient reevaluated, afebrile, no distress and vitals stable. patient is stable for transport. Patient was agreeable transportation, denies any pain at this time. Family at bedside follow patient' s to transferring hospital. (HERB TERAN) - Vital Signs Vital signs: Temp Pulse Resp BP Pulse Ox 98.8 F 94 16 106/62 98 08/26/17 08:42 08/25/17 15:25 08/26/17 09:31 08/26/17 09:31 08/26/17 09:31 - Laboratory Laboratory results interpreted by me: 08/25/17 08/25/17 08/25/17 17:05 17:05 18:30 WBC 14.3 H MCH 26.4 L RDW 16.4 H Absolute Neutrophils 10.7 H Sodium 136.5 L BUN 23 H Est GFR ( Amer) 55 L Est GFR (Non-Af Amer) 46 L Glucose 420 H* POC Glucose Direct Bilirubin 0.5 H Creatine Kinase 496 H CK-MB (CK-2) NT-Pro-B Natriuret Pep 2050 H Albumin 3.4 L Urine Protein Urine Glucose (UA) Urine Ketones Urine Blood 08/25/17 08/25/17 08/25/17 18:30 18:50 20:55 WBC MCH RDW Absolute Neutrophils Sodium BUN Est GFR ( Amer) Est GFR (Non-Af Amer) Glucose POC Glucose 386 H Direct Bilirubin Creatine Kinase CK-MB (CK-2) 4.78 H NT-Pro-B Natriuret Pep Albumin Urine Protein >=500 H Urine Glucose (UA) >=500 H Urine Ketones 20 H Urine Blood MODERATE H 08/25/17 08/26/17 08/26/17 23:12 00:08 04:02 WBC MCH RDW Absolute Neutrophils Sodium BUN Est GFR ( Amer) Est GFR (Non-Af Amer) Glucose POC Glucose 318 H 290 H 230 H Direct Bilirubin Creatine Kinase CK-MB (CK-2) NT-Pro-B Natriuret Pep Albumin Urine Protein Urine Glucose (UA) Urine Ketones Urine Blood 08/26/17 08/26/17 07:07 08:32 WBC MCH RDW Absolute Neutrophils Sodium BUN Est GFR ( Amer) Est GFR (Non-Af Amer) Glucose POC Glucose 262 H 302 H Direct Bilirubin Creatine Kinase CK-MB (CK-2) NT-Pro-B Natriuret Pep Albumin Urine Protein Urine Glucose (UA) Urine Ketones Urine Blood Discharge <ADAMA PICKENS - Last Filed: 08/26/17 00:39> <HERB TERAN - Last Filed: 08/26/17 11:22> - Discharge Clinical Impression: Diabetic foot infection, NSTEMI (non-ST elevated myocardial infarction) Foreign body in foot, right Qualifiers: Encounter type: initial encounter Qualified Code(s): S90.851A - Superficial foreign body, right foot, initial encounter Condition: Stable Disposition: [facility] Referrals: BRENNEN CHRISTIAN MD [Primary Care Provider] - Follow up as needed
[2017-08-25] MEDS ORDERED: MORPHINE SULFATE 10 MG/ML INJ IV ONE (16:44)
[2017-08-25 17:51] LABS: ABSOLUTE BASOPHILS # (AUTO) 0.1 10^3/uL (0.0-0.2); ABSOLUTE EOSINOPHILS # (AUTO) 0.2 10^3/uL (0.0-0.6); ABSOLUTE MONOCYTES (AUTO) 1.4 10^3/uL (0.1-1.4); ABSOLUTE NEUT (AUTO) 10.7 10^3/uL (1.7-8.2); BASOPHILS % (AUTO) 0.4 % (0-2); EOSINOPHILS % (AUTO) 1.2 % (0-6); HEMOGLOBIN 13.2 g/dL (12.0-15.5); MEAN CORPUSCULAR HEMOGLOBIN 26.4 pg (27.0-33.4); MEAN CORPUSCULAR HGB CONC 32.1 g/dL (32.0-36.0); MEAN CORPUSCULAR VOLUME 82 fl (80-97); MONOCYTES % (AUTO) 9.8 % (3-13); PLATELET COUNT 216 10^3/uL (150-450); RED BLOOD COUNT 4.99 10^6/uL (3.72-5.28); RED CELL DISTRIBUTION WIDTH 16.4 % (11.5-14.0); SEGMENTED NEUTROPHILS % (AUTO) 74.6 % (42-78); TOTAL CELLS COUNTED % (AUTO) 100 %; WHITE BLOOD COUNT 14.3 10^3/uL (4.0-10.5)
[2017-08-25] MEDS: CEFEPIME 1 GM/D5W RTU 1 GM/50 ML RTUPB IV SCH (18:06)
--- NOTE | 2017-08-25 18:51 | RADIOLOGY REPORT (SQ) ---
EXAM DESCRIPTION: FOOT RIGHT COMPLETE COMPLETED DATE/TIME: 08/25/2017 6:02 pm REASON FOR STUDY: right foot cellulitis pain. Swollen, blistering right foot. COMPARISON: Right foot x-ray 09/14/2011. NUMBER OF VIEWS: Three views. TECHNIQUE: AP, lateral and oblique radiographic images acquired of the right foot. LIMITATIONS: None. FINDINGS: MINERALIZATION: Normal. BONES: No acute fracture or dislocation. Interval development of calcific density at the base of the 2nd proximal phalanx. There is hallux valgus deformity. SOFT TISSUES: There is diffuse soft tissue swelling. There is an approximately 8 mm linear radiopaqu e density in the plantar soft tissues overlying the base of the 4th proximal phalanx. IMPRESSION: 1. Diffuse soft tissue swelling. No radiographic evidence for acute fracture. 8 mm r adiopaque density in the plantar soft tissues overlying the base of the 4th proximal phalanx, suggest micheal of a foreign body. Clinical correlation recommended. 2. Calcific density at the base of the 2nd proximal phalanx, may be secondary to a bone or soft tissu e lesion. This can be better evaluated with dedicated MRI. TECHNICAL DOCUMENTATION: JOB ID: [id number] 2010 [employer]- All Rights Reserved Reading location - IP/workstation name: [email or web address]
[2017-08-25] MEDS ORDERED: DIPH/PERTUSS(ACELL)/TETANUS VAC/PF 0.5 ML SYR (>=10YO) IM ONE (19:02)
--- NOTE | 2017-08-25 19:07 | RADIOLOGY REPORT (SQ) ---
EXAM DESCRIPTION: CHEST SINGLE VIEW COMPLETED DATE/TIME: 08/25/2017 6:46 pm REASON FOR STUDY: CHF COMPARISON: 02/24/2017. EXAM PARAMETERS: NUMBER OF VIEWS: One view. TECHNIQUE: Single frontal radiographic view of the chest acquired. RADIATION DOSE: NA LIMITATIONS: None. FINDINGS: LUNGS AND PLEURA: Prominence of interstitial markings in lung bases unchanged. Upper lung barnhart are clear. These findings are essentially unchanged. MEDIASTINUM AND HILAR STRUCTURES: No masses. Contour normal. HEART AND VASCULAR STRUCTURES: The heart is borderline in size which could be accentuated by expirato ry technique. The pulmonary vasculature is unchanged. BONES: No acute findings. HARDWARE: None in the chest. OTHER: No other significant finding. IMPRESSION: No significant change from 02/24/2017. TECHNICAL DOCUMENTATION: JOB ID: [id number] 2010 [employer]- All Rights Reserved Reading location - IP/workstation name: [email or web address]
[2017-08-25 19:09] LABS: ALANINE AMINOTRANSFERASE 32 U/L (9-52); ALBUMIN 3.4 g/dL (3.5-5.0); ALKALINE PHOSPHATASE 99 U/L (38-126); ANION GAP 14 (5-19); ASPARTATE AMINO TRANSFERASE 26 U/L (14-36); BILIRUBIN,DIRECT 0.5 mg/dL (0.0-0.4); BILIRUBIN,TOTAL 0.5 mg/dL (0.2-1.3); CALCIUM 9.2 mg/dL (8.4-10.2); CARBON DIOXIDE 24 mmol/L (22-30); CHLORIDE 99 mmol/L (98-107); CREATINE KINASE 496 U/L (30-135); POTASSIUM 4.4 mmol/L (3.6-5.0); SODIUM 136.5 mmol/L (137-145); TOTAL PROTEIN 6.5 g/dL (6.3-8.2)
[2017-08-25 19:23] LABS: APPEARANCE,URINE CLEAR; BILIRUBIN,URINE NEGATIVE (NEGATIVE); COLOR,URINE YELLOW; GLUCOSE, URINE >=500 mg/dL (NEGATIVE); KETONES,URINE 20 mg/dL (NEGATIVE); LEUKOCYTE ESTERASE,URINE NEGATIVE (NEGATIVE); NITRITE,URINE NEGATIVE (NEGATIVE); PROTEIN,URINE >=500 mg/dL (NEGATIVE); URINE SPECIFIC GRAVITY 1.026; UROBILINOGEN,URINE NEGATIVE mg/dL (<2.0)
[2017-08-25 19:26] LABS: GLUCOSE 420 mg/dL (75-110)
[2017-08-25 19:30] LABS: BLOOD UREA NITROGEN 23 mg/dL (7-20)
[2017-08-25] MEDS ORDERED: VANCOMYCIN HCL INJ 1000 MG VIAL IV ONE (19:50)
[2017-08-25] MEDS ORDERED: INSULIN REG, HUMAN 100 UNIT/ML 3 ML VIAL (PYX) SUBCUT ONE (19:51)
[2017-08-25 20:11] LABS: CREATINE KINASE MB 4.78 ng/mL (<4.55)
[2017-08-25 20:20] LABS: TROPONIN I 0.166 ng/mL
[2017-08-25] MEDS ORDERED: ASPIRIN 81 MG TABLET, CHEWABLE PO ONE (20:48)
[2017-08-25] MEDS ORDERED: MORPHINE SULFATE IR 15 MG TABLET PO ONE (23:32)
[2017-08-26] MEDS ORDERED: ENOXAPARIN SODIUM INJ 100 MG/1 ML DISP.SYRIN SUBCUT SCH (00:15)
[2017-08-26] MEDS ORDERED: ENOXAPARIN SODIUM INJ 100 MG/1 ML DISP.SYRIN SUBCUT ONE (00:21)
[2017-08-26] MEDS ORDERED: INSULIN REG, HUMAN 100 UNIT/ML 3 ML VIAL (PYX) IV ONE ×2 (08:00→09:58)
[2017-08-26] MEDS ORDERED: MORPHINE SULFATE 10 MG/ML INJ IV ONE (08:05)
[2017-08-26] MEDS ORDERED: FENTANYL CITRATE INJ/PF 100 MCG/2 ML AMPUL IV ONE (08:17)
[2017-08-26] MEDS: CEFEPIME 1 GM/D5W RTU 1 GM/50 ML RTUPB IV SCH (09:56)
[2017-08-26 11:04] VITALS: BP 104/60
--- NOTE | 2017-08-27 07:41 | EKG REPORT ---
SEVERITY:- ABNORMAL ECG - SINUS RHYTHM PROBABLE LEFT ATRIAL ABNORMALITY LEFT BUNDLE BRANCH BLOCK : Confirmed by: Todd Roth MD 27-Aug-2017 07:40:45
--- NOTE | 2017-08-27 07:41 | EKG REPORT ---
SEVERITY:- ABNORMAL ECG - SINUS RHYTHM PROBABLE LEFT ATRIAL ABNORMALITY LEFT BUNDLE BRANCH BLOCK : Confirmed by: Todd Roth MD 27-Aug-2017 07:40:56
== END 2017-08-26 11:24 | disposition short-term general hospital (02) ==
LOC: ER 15:19
DX: I21.4 Non-ST elevation (NSTEMI) myocardial infarction (principal); E11.69 Type 2 diabetes mellitus with other specified complication; L08.9 Local infection of the skin and subcutaneous tissue, unspecified; S90.851A Superficial foreign body, right foot, initial encounter; S90.821A Blister (nonthermal), right foot, initial encounter; X58.XXXA Exposure to other specified factors, initial encounter; I44.7 Left bundle-branch block, unspecified; I10 Essential (primary) hypertension; J45.909 Unspecified asthma, uncomplicated; Z91.14 Patient's other noncompliance with medication regimen
CPT/HCPCS: 93005; 99285; 96372; 90471; 96375; 96365; 96367; 36415; 87040; 82553; 82962; 82550; 83605; 85025; 80053; 81001; 84484; 83880; 71045; 73630; 90715; 93010; A9270 ×4; J3010; J2270; J3370; J1650; J0692 ×2; J1815

== ENCOUNTER 2017-09-17 03:46 | Inpatient (IN) | payer MEDICARE, MEDICAID ==
[2017-09-17] MEDS ORDERED: IPRATROPIUM/ALBUTEROL 0.5-2.5 MG/3 ML AMPUL NEB ONE ×2 (03:53)
[2017-09-17] MEDS ORDERED: NORMAL SALINE 1000 ML 1,000 ML IV ONE (03:54)
[2017-09-17] MEDS ORDERED: METHYLPREDNISOLONE INJ 125 MG/2 ML SDV IV ONE (03:54)
--- NOTE | 2017-09-17 04:02 | ER Document Report ---
ED Respiratory Problem - General Stated Complaint: DIFFICULTY BREATHING Time Seen by Provider: 09/17/17 03:52 Notes: Patient is a 67-year-old female that comes emergency department for chief complaint of shortness of breath, she states that she began to have difficulty breathing earlier this evening, meth states that initial oxygen saturation was in the 70s, they gave 1 DuoNeb, on arrival to the emergency department oxygen saturation at 78% on 3 L with patient having difficulty breathing. Patient denies fever, she denies any other symptoms. Past medical history of asthma, not on oxygen at home, also has a history of hypertension and type 2 diabetes with right toe ulcer, no other medical history reported including no SD or CHF history. Patient comes from [place] where she is in rehab for her foot. TRAVEL OUTSIDE OF THE [place] IN LAST 30 DAYS: No - Related Data Allergies/Adverse Reactions: No Known Allergies Allergy (Verified 08/25/17 15:23) Past Medical History - General Information source: Patient, Emergency Med Personnel - Social History Smoking Status: Never Smoker Frequency of alcohol use: None Drug Abuse: None Family History: Reviewed & Not Pertinent, DM - Past Medical History Cardiac Medical History: Reports: Hx Hypercholesterolemia, Hx Hypertension Pulmonary Medical History: Reports: Hx Asthma Denies: Hx Tuberculosis Endocrine Medical History: Reports: Hx Diabetes Mellitus Type 2 Renal/ Medical History: Denies: Hx Peritoneal Dialysis Psychiatric Medical History: Reports: Hx Depression Past Surgical History: Reports: Hx Appendectomy, Hx Section - x2 - Immunizations Hx Diphtheria, Pertussis, Tetanus Vaccination: Yes - 2011 Hx Pneumococcal Vaccination: 12/17/10 Review of Systems - Review of Systems Constitutional: No symptoms reported EENT: No symptoms reported Cardiovascular: See HPI Respiratory: See HPI Gastrointestinal: No symptoms reported Genitourinary: No symptoms reported Female Genitourinary: No symptoms reported Musculoskeletal: No symptoms reported Skin: No symptoms reported Hematologic/Lymphatic: No symptoms reported Neurological/Psychological: No symptoms reported Physical Exam - Vital signs Vitals: Resp Pulse Ox 31 H 77 L 09/17/17 03:52 09/17/17 03:52 - Notes Notes: GENERAL: Patient with tachypnea, mild distress. HEAD: Normocephalic, atraumatic. EYES: Pupils equal, round, and reactive to light. Extraocular movements intact. ENT: Oral mucosa moist, tongue midline. NECK: Full range of motion. Supple. Trachea midline. LUNGS: Expiratory wheezes and scattered rhonchi or rales everywhere. Tachypnea with mild respiratory distress. Labored breathing. HEART: Tachycardic, no murmur. ABDOMEN: Soft, non-tender. Non-distended. Bowel sounds present in all 4 quadrants. EXTREMITIES: No significant edema. Diabetic foot ulcer dressed on the right toe area. Normal pulses and sensation. BACK: no cervical, thoracic, lumbar midline tenderness. No saddle anesthesia, normal distal neurovascular exam. NEUROLOGICAL: Alert and oriented x3. Normal speech. [cranial nerves II through XII grossly intact]. SKIN: Warm, dry, normal turgor. No rashes or lesions noted. Course - Re-evaluation Re-evalutation: On my initial evaluation patient in mild respiratory distress with labored breathing, tachypnea, and noted hypoxia. When I entered the room patient was 77 % on 3 L nasal cannula, she is immediately placed on nonrebreather and BiPAP was called for, began DuoNeb treatments, Solu-Medrol, magnesium. Patient began to rapidly improve, she maintained normal state of consciousness, after she was placed on BiPAP and medicated her respiratory distress resolved. Oxygen saturation is now 94-95% on BiPAP. Patient will continue to be closely monitored. Chest x-ray appears to show pulmonary vascular congestion, read is still pending , giving Lasix. Patient does not have a written history with her records of congestive heart failure, she does not have lower extremity edema, she is not hypertensive. Nitroglycerin paste placed. Wheezing resolved after treatments. Appears to be mixed asthma and COPD exacerbation. Discussed with Dr. Martines, he did recommend a d-dimer. This was elevated. Will perform CTA. I placed ultrasound-guided long 20-gauge IV in the right AC. CBC actually unremarkable. Chemistry showing hyperglycemia but bicarbonate and anion gap are normal, pH on venous blood gas is normal. Treating with insulin. Unfortunately the first IV blew, and then the second ultrasound-guided IV infiltrated as well attempting CTA. No obvious additional places to place an ultrasound-guided IV in the antecubital area at this time. Patient became very short of breath when transferred to CT back, became more hypoxic, had labored breathing, took a couple of minutes to recover on BiPAP back in the room. She will not tolerate lying flat long enough for me to place a central line to attempt the CTA again. Patient does not want a central line. 09/17/17 07:[address] Elias, internal medicine, he will come evaluate the patient , patient will be anticoagulated until a CTA can be performed. - Vital Signs Vital signs: Temp Pulse Resp BP Pulse Ox 37 H 130/88 H 94 09/17/17 04:00 09/17/17 03:57 09/17/17 04:00 - Laboratory Result Diagrams: 09/17/17 05:28 09/17/17 05:28 Laboratory results interpreted by me: 09/17/17 09/17/17 09/17/17 04:20 04:20 05:28 Hgb 11.7 L MCH 25.7 L MCHC 31.0 L RDW 17.6 H D-Dimer 3.99 H BUN Creatinine Est GFR ( Amer) Est GFR (Non-Af Amer) Glucose Direct Bilirubin Creatine Kinase NT-Pro-B Natriuret Pep 3740 H Albumin 09/17/17 05:28 Hgb MCH MCHC RDW D-Dimer BUN 31 H Creatinine 1.37 H Est GFR ( Amer) 47 L Est GFR (Non-Af Amer) 39 L Glucose 518 H* Direct Bilirubin 0.5 H Creatine Kinase 199 H NT-Pro-B Natriuret Pep Albumin 3.4 L Discharge - Discharge Clinical Impression: Hypoxia, Hyperglycemia Pulmonary edema Qualifiers: Chronicity: acute Qualified Code(s): J81.0 - Acute pulmonary edema Asthma exacerbation Qualifiers: Asthma severity: moderate Asthma persistence: unspecified Qualified Code(s): J45.901 - Unspecified asthma with (acute) exacerbation Condition: Fair Disposition: ADMITTED INPATIENT Admitting Provider: Hospitalist Referrals: BRENNEN CHRISTIAN MD [Primary Care Provider] - Follow up as needed
[2017-09-17 04:52] LABS: VENOUS BLOOD BASE EXCESS -0.4 mmol/L; VENOUS BLOOD HCO3 26.1 mmol/L (20-32); VENOUS BLOOD PCO2 50.5 mmHg (35-63); VENOUS BLOOD PH 7.33 (7.30-7.42)
[2017-09-17] MEDS: MAGNESIUM SULFATE/D5W 1 GM/100 ML RTUPB IV SCH ×2 (04:53→04:55)
--- NOTE | 2017-09-17 05:10 | RADIOLOGY REPORT (SQ) ---
EXAM DESCRIPTION: XR CHEST 1 VIEW COMPLETED DATE/TME: 09/17/2017 03:53 CLINICAL HISTORY: shortness of breath, hypoxia COMPARISON: 08/25/2017 FINDINGS: Single frontal view of the chest. Cardiomegaly. Alveolar and interstitial opacities. No large effusion. No pneumothorax. No acute osseous abnormalities Upper abdominal soft tissues are unremarkable. IMPRESSION: 1. Cardiomegaly with alveolar and interstitial opacities likely representing pulmonary edema.
[2017-09-17] MEDS ORDERED: NITROGLYCERIN 2% OINTMENT 1 GM PACKET TP ONE (05:18)
[2017-09-17] MEDS ORDERED: FUROSEMIDE INJ/PF 40 MG/4 ML SDV IV ONE (05:18)
[2017-09-17 05:19] LABS: CREATINE KINASE MB 2.45 ng/mL (<4.55)
[2017-09-17 05:23] LABS: TROPONIN I 0.063 ng/mL
[2017-09-17 05:47] LABS: ABSOLUTE BASOPHILS # (AUTO) 0.1 10^3/uL (0.0-0.2); ABSOLUTE EOSINOPHILS # (AUTO) 0.2 10^3/uL (0.0-0.6); ABSOLUTE LYMPHOCYTES (AUTO) 1.8 10^3/uL (0.5-4.7); ABSOLUTE MONOCYTES (AUTO) 0.6 10^3/uL (0.1-1.4); ABSOLUTE NEUT (AUTO) 5.9 10^3/uL (1.7-8.2); BASOPHILS % (AUTO) 0.6 % (0-2); EOSINOPHILS % (AUTO) 2.7 % (0-6); HEMATOCRIT 37.6 % (36.0-47.0); HEMOGLOBIN 11.7 g/dL (12.0-15.5); LYMPHOCYTES % (AUTO) 20.8 % (13-45); MEAN CORPUSCULAR HEMOGLOBIN 25.7 pg (27.0-33.4); MEAN CORPUSCULAR VOLUME 83 fl (80-97); MONOCYTES % (AUTO) 6.5 % (3-13); PLATELET COUNT 250 10^3/uL (150-450); RED BLOOD COUNT 4.53 10^6/uL (3.72-5.28); RED CELL DISTRIBUTION WIDTH 17.6 % (11.5-14.0); SEGMENTED NEUTROPHILS % (AUTO) 69.4 % (42-78); TOTAL CELLS COUNTED % (AUTO) 100 %; WHITE BLOOD COUNT 8.5 10^3/uL (4.0-10.5)
[2017-09-17 06:06] LABS: ALANINE AMINOTRANSFERASE 28 U/L (9-52); ALBUMIN 3.4 g/dL (3.5-5.0); ALKALINE PHOSPHATASE 103 U/L (38-126); ANION GAP 10 (5-19); ASPARTATE AMINO TRANSFERASE 25 U/L (14-36); BILIRUBIN,DIRECT 0.5 mg/dL (0.0-0.4); BILIRUBIN,TOTAL 0.6 mg/dL (0.2-1.3); BLOOD UREA NITROGEN 31 mg/dL (7-20); CALCIUM 9.1 mg/dL (8.4-10.2); CARBON DIOXIDE 26 mmol/L (22-30); CHLORIDE 106 mmol/L (98-107); CREATINE KINASE 199 U/L (30-135); POTASSIUM 4.8 mmol/L (3.6-5.0); SODIUM 142.4 mmol/L (137-145)
[2017-09-17 06:16] LABS: GLUCOSE 518 mg/dL (75-110)
[2017-09-17] MEDS ORDERED: INSULIN REG, HUMAN 100 UNIT/ML 3 ML VIAL (PYX) SUBCUT ONE (06:17)
--- NOTE | 2017-09-17 06:54 | EKG REPORT ---
SEVERITY:- ABNORMAL ECG - SINUS TACHYCARDIA PROBABLE LEFT ATRIAL ABNORMALITY LEFT BUNDLE BRANCH BLOCK : Confirmed by: Radha Terry MD 17-Sep-2017 06:53:53
[2017-09-17] MEDS ORDERED: ENOXAPARIN SODIUM INJ 100 MG/1 ML DISP.SYRIN SUBCUT ONE (07:48)
[2017-09-17] MEDS ORDERED: DEXTROSE 40% GEL 15 GM TUBE PO PRN ×2 (08:35)
[2017-09-17] MEDS ORDERED: DEXTROSE 50%-WATER 25 GM/50 ML DISP.SYRIN IV PRN ×2 (08:35)
[2017-09-17] MEDS ORDERED: GLUCAGON,HUMAN RECOMB 1 MG INJ IM PRN (08:35)
--- NOTE | 2017-09-17 09:04 | PDOC H&P ---
History of Present Illness Admission Date/PCP: BRENNEN CHRISTIAN MD History of Present Illness: EDUARDA JARRELL is a 67 year old female with multiple medical comorbidities who has been in a long term facility for the past week or so on IV antibiotics for an infection in her foot. She is not sure what, but apparently her daughter says she was in this hospital for about a week or 2 and got a PICC line here, was sent to [facility] and was there for about another month, had surgery on her foot for some sort of infection, and then was sent to a fdc here in [place] and has been there for about a week. Her PICC line got pulled out by accident 3 or 4 days ago and the daughter says that the patient is supposed to get another 3 weeks or so of IV antibiotics. She does not know which antibiotic. She was sent here today because she had acute onset of shortness of breath. She was found to be hypoxemic with SPO2 in the 70s. She was brought over here to the ER and put on BiPAP. A d-dimer was checked and it was elevated and a CTA of the chest was ordered but was unable to be performed because they tried to get 2 IV lines on her and both of them went bad. Chest x-ray showed some evidence of some mild pulmonary edema suggesting cardiac decompensation. 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 She also had a glucose of greater than 500. She is insulin- dependent diabetic and has been admitted in this hospital before for DKA. Past Medical History Cardiac Medical History: Reports: Hyperlipidema, Hypertension Pulmonary Medical History: Reports: Asthma Denies: Tuberculosis Endocrine Medical History: Reports: Diabetes Mellitus Type 1, Diabetes Mellitus Type 2 Psychiatric Medical History: Reports: Depression Hematology: Denies: Anemia, Sickle Cell Disease Past Surgical History Past Surgical History: Reports: Appendectomy, Section - x2 Denies: Amputation Social History Smoking Status: Never Smoker Frequency of Alcohol Use: None Hx Recreational Drug Use: No Drugs: None Hx Prescription Drug Abuse: No Family History Family History: Reviewed & Not Pertinent, DM Parental Family History Reviewed: No - Noncontributory Children Family History Reviewed: NA - Noncontributory Sibling(s) Family History Reviewed.: NA - Noncontributory Medication/Allergy Home Medications: Amlodipine Besylate [Norvasc 5 mg Tablet] 5 mg PO DAILY 04/17/17 Budesonide [Pulmicort 180 mcg Flexhaler] 1 puff IH BIDP PRN 04/17/17 Ciprofloxacin HCl [Cipro 500 mg Tablet] 500 mg PO BID 04/17/17 Docusate Sodium [Colace 100 mg Capsule] 100 mg PO DAILYP PRN 04/17/17 Furosemide [Lasix 40 mg Tablet] 40 mg PO QAM 04/17/17 Gabapentin [Neurontin] 800 mg PO Q8 04/17/17 Insulin Glargine,Hum.rec.anlog [Lantus Solostar] 90 unit SQ Q12 04/17/17 Meclizine HCl [Antivert 25 mg Tablet] 25 mg PO TIDP PRN 04/17/17 Metronidazole [Flagyl 500 mg Tablet] 500 mg PO BID 04/17/17 Naproxen [Naprosyn] 500 mg PO BIDP PRN 04/17/17 Omeprazole 40 mg PO Q6AM 04/17/17 Ondansetron HCl [Zofran 4 mg Tablet] 1 tab PO TIDP PRN 04/17/17 Oxycodone HCl [Oxy-Ir 5 mg Tablet] 5 mg PO TIDP PRN 04/17/17 Potassium Chloride [Klor-Con 10] 10 meq PO DAILY 04/17/17 Pregabalin [Lyrica 100 mg Capsule] 100 mg PO Q8 04/17/17 Rosuvastatin Calcium [Crestor 10 mg Tablet] 10 mg PO QHS 04/17/17 Insulin Aspart [Novolog Flexpen] 40 unit SUBCUT MEALS #1 pe 04/19/17 Allergies/Adverse Reactions: No Known Allergies Allergy (Verified 08/25/17 15:23) Review of Systems All systems: reviewed and no additional remarkable complaints except as stated - A 10 point review of systems was conducted with the patient and was negative except as noted in the HPI Physical Exam Vital Signs: Temp Pulse Resp BP Pulse Ox 37 H 130/88 H 94 09/17/17 04:00 09/17/17 03:57 09/17/17 04:00 Intake & Output 09/16/17 09/17/17 09/18/17 06:59 06:59 06:59 Output Total 550 Balance -550 Weight 100 kg General appearance: PRESENT: cooperative, disheveled, mild distress, obese Head exam: PRESENT: atraumatic, normocephalic Eye exam: PRESENT: conjunctiva pink, EOMI, PERRLA. ABSENT: conjunctival injection, scleral icterus Ear exam: PRESENT: normal external ear exam Mouth exam: PRESENT: dry mucosa, neck supple Teeth exam: PRESENT: poor dentation Neck exam: ABSENT: carotid bruit, JVD, lymphadenopathy, thyromegaly Respiratory exam: PRESENT: accessory muscle use, rales, rhonchi - Diffuse. ABSENT: stridor, unlabored, wheezes Cardiovascular exam: PRESENT: RRR. ABSENT: diastolic murmur, rubs, systolic murmur Pulses: PRESENT: normal carotid pulses, normal radial pulses Vascular exam: PRESENT: normal capillary refill GI/Abdominal exam: PRESENT: normal bowel sounds, soft. ABSENT: distended, guarding, mass, organolmegaly, rebound, tenderness Rectal exam: PRESENT: deferred Extremities exam: PRESENT: +1 edema. ABSENT: calf tenderness, clubbing, pedal edema Musculoskeletal exam: PRESENT: normal inspection. ABSENT: deformity Neurological exam: PRESENT: alert, awake, oriented to person, oriented to place , oriented to time, CN II-XII grossly intact Skin exam: PRESENT: dry, warm Results Laboratory Results: 09/17/17 05:28 09/17/17 05:28 09/17/17 09/17/17 09/17/17 04:20 04:20 04:20 WBC Cancelled RBC Cancelled Hgb Cancelled Hct Cancelled MCV Cancelled MCH Cancelled MCHC Cancelled RDW Cancelled Plt Count Cancelled Seg Neutrophils % Cancelled Lymphocytes % Cancelled Monocytes % Cancelled Eosinophils % Cancelled Basophils % Cancelled Absolute Neutrophils Cancelled Absolute Lymphocytes Cancelled Absolute Monocytes Cancelled Absolute Eosinophils Cancelled Absolute Basophils Cancelled VBG pH 7.33 VBG pCO2 50.5 VBG HCO3 26.1 VBG Base Excess -0.4 Sodium Cancelled Potassium Cancelled Chloride Cancelled Carbon Dioxide Cancelled Anion Gap Cancelled BUN Cancelled Creatinine Cancelled Est GFR ( Amer) Cancelled Est GFR (Non-Af Amer) Cancelled Glucose Cancelled Calcium Cancelled Total Bilirubin Cancelled AST Cancelled ALT Cancelled Alkaline Phosphatase Cancelled Total Protein Cancelled Albumin Cancelled 09/17/17 09/17/17 05:28 05:28 WBC 8.5 RBC 4.53 Hgb 11.7 L Hct 37.6 MCV 83 MCH 25.7 L MCHC 31.0 L RDW 17.6 H Plt Count 250 Seg Neutrophils % 69.4 Lymphocytes % 20.8 Monocytes % 6.5 Eosinophils % 2.7 Basophils % 0.6 Absolute Neutrophils 5.9 Absolute Lymphocytes 1.8 Absolute Monocytes 0.6 Absolute Eosinophils 0.2 Absolute Basophils 0.1 VBG pH VBG pCO2 VBG HCO3 VBG Base Excess Sodium 142.4 Potassium 4.8 Chloride 106 Carbon Dioxide 26 Anion Gap 10 BUN 31 H Creatinine 1.37 H Est GFR ( Amer) 47 L Est GFR (Non-Af Amer) 39 L Glucose 518 H* Calcium 9.1 Total Bilirubin 0.6 AST 25 ALT 28 Alkaline Phosphatase 103 Total Protein 7.0 Albumin 3.4 L 09/17/17 09/17/17 09/17/17 04:20 04:20 05:28 Creatine Kinase Cancelled 199 H CK-MB (CK-2) 2.45 Troponin I 0.063 NT-Pro-B Natriuret Pep 3740 H Impressions: Chest X-Ray 09/17/17 03:53 IMPRESSION: 1. Cardiomegaly with alveolar and interstitial opacities likely representing pulmonary edema. Assessment & Plan - Diagnosis (1) Acute hypoxemic respiratory failure Is this a current diagnosis for this admission?: Yes Plan: She is on BiPAP. I am going to start her on Lasix. D-dimer was elevated. We will start her empirically on Lovenox. Will get a PICC line so that we can get IV access so that we can obtain a CTA. (2) Acute exacerbation of CHF (congestive heart failure) Qualifiers: Heart failure type: combined systolic and diastolic Qualified Code(s): I50.43 - Acute on chronic combined systolic (congestive) and diastolic ( congestive) heart failure Is this a current diagnosis for this admission?: Yes Plan: We are going to try to get her home medication list. We will give her IV Lasix. We will get an echocardiogram. Respiratory support. We will try to medically optimize her as well. We will also try to get the records from [facility] from her recent hospitalization. (3) Uncontrolled diabetes mellitus Qualifiers: Diabetes mellitus type: type 2 Diabetes mellitus complication status: with hyperglycemia Is this a current diagnosis for this admission?: Yes Plan: She will be n.p.o. for now. Do not want to give her any fluids because she is having some respiratory compromise and fluid overload could be a part of that. We will give her every 6 hours fingersticks and a sliding scale. (4) Diabetic infection of right foot Is this a current diagnosis for this admission?: Yes Plan: As noted above, we will try to obtain records from the recent hospitalization and [place]. Can replace the PICC line, because we need IV access now, and because she potentially still needs IV access for another few weeks for antibiotics. - Time Time Spent: Greater than 70 Minutes Medications reviewed and adjusted accordingly: Yes Anticipated discharge: SNF
[2017-09-17] MEDS: FUROSEMIDE INJ/PF 40 MG/4 ML SDV IV SCH ×2 (11:37→21:19)
[2017-09-17] MEDS: INSULIN REG, HUMAN 100 UNIT/ML 3 ML VIAL (PYX) SUBCUT PRN ×2 (12:28→21:39)
--- NOTE | 2017-09-17 12:33 | XCELERA REPORT ---
[address] [address] Transthoracic Echocardiogram Report Name: EDUARDA JARRELL Age: 67 yrs Gender: Female : 1950 Patient Status: Inpatient [address] Study Date: 09/17/2017 09:17 AM Procedure: A two-dimensional transthoracic echocardiogram with color flow and Doppler was performed. The study was technically difficult with many images being suboptimal in quality. Reason For Study: ACUTE CHF History: ACUTE CHF. Ordering Physician: UCHE RUST Performed By: Karely Costello Interpretation Summary The left ventricle is normal in size. There is normal left ventricular wall thickness. LV EF is Less than 25% Left ventricular systolic function is severely reduced. The apical LV lópez are akinetic.Rest of the LV lópez are severely hypkinetic. The right ventricle is normal in size and function. The right atrium is normal. The left atrium is moderately dilated. There is no evidence of mitral valve prolapse. There is no vegetation seen on the mitral valve. There is no mitral valve stenosis. There is a moderate to severe amount of mitral regurgitation The MR is a posteriorly directed wall jet. There is no aortic valve stenosis There is no LVOT obstruction. No aortic regurgitation is present. There is no tricuspid stenosis. No tricuspid regurgitation. Unable to assess RVSP due to lack of TR jet. There is no pericardial effusion. Cannot exlude Clot in LV apex.(Highly suspicious).Correlate clinically. MMode/2D Measurements & Calculations RVDd: 2.9 cm LVIDd: 5.4 cm FS: 10.7 % LVOT diam: 1.8 cm IVSd: 1.1 cm LVIDs: 4.8 cm EDV(Teich): 140.5 ml LVOT area: 2.5 cm2 LVPWd: 1.2 cm ESV(Teich): 108.1 ml EF(Teich): 23.1 % Doppler Measurements & Calculations MV E max marichuy: MV dec slope: Ao V2 max: LV V1 max P.8 cm/sec 1849 cm/sec2 115.7 cm/sec 3.9 mmHg MV A max marichuy: MV dec time: Ao max PG: LV V1 max: 36.7 cm/sec 0.08 sec 5.4 mmHg 99.1 cm/sec MV E/A: 3.9 HUGH(V,D): 2.2 cm2 MR max marichuy: PA V2 max: 522.5 cm/sec 66.8 cm/sec MR max PG: PA max P.8 mmHg 109.2 mmHg Left Ventricle The left ventricle is normal in size. There is normal left ventricular wall thickness. LV EF is Less than 25%. Left ventricular systolic function is severely reduced. The apical LV lópez are akinetic.Rest of the LV lópez are severely hypkinetic. Cannot exlude Clot in LV apex.(Highly suspicious).Correlate clinically. Right Ventricle The right ventricle is normal in size and function. Atria The right atrium is normal. The left atrium is moderately dilated. Mitral Valve There is no evidence of mitral valve prolapse. There is no vegetation seen on the mitral valve. There is no mitral valve stenosis. There is a moderate to severe amount of mitral regurgitation. The MR is a posteriorly directed wall jet. Aortic Valve There is no aortic valvular vegetation. There is no aortic valve stenosis. There is no LVOT obstruction. No aortic regurgitation is present. Tricuspid Valve There is no tricuspid stenosis. No tricuspid regurgitation. Unable to assess RVSP due to lack of TR jet. Pulmonic Valve There is no pulmonic valvular stenosis. There is no pulmonic valvular regurgitation. Great Vessels The aortic root is not well visualized. Effusions There is no pericardial effusion. : UCHE RUST > Radha Terry
--- NOTE | 2017-09-17 15:03 | RADIOLOGY REPORT (SQ) ---
EXAM DESCRIPTION: PICC INSERTION; U/S GUIDE FOR VASCULAR ACCESS COMPLETED DATE/TIME: 09/17/2017 2:06 pm REASON FOR STUDY: IV access; IV ACCESS COMPARISON: AP chest 09/17/2017 FLUOROSCOPY TIME: No fluoroscopy 2 digital chest radiographic images, 1 ultrasound image saved to PACS. TECHNIQUE: Fluoroscopic and ultrasound guided PICC placement. LIMITATIONS: None. PROCEDURE: After written consent and assessment were obtained, Ultrasound evaluation of potential ac cess sites were performed. After successfully identifying a patent right basilic vein, the right arm was prepped and draped in a sterile fashion along with the ultrasound probe. The entry site was anest hetized with 1% lidocaine. A 21 gauge 7 cm needle was advanced through the skin and into the basilic vein under live ultrasound guidance. An ultrasound image was saved to PACS confirming access site. A .018 guide wire was then inserted through the needle and into the venous system. The needle was the removed and an 11 blade scalpel was used to make a 1cm skin incision. A 5 fr peel-away sheath was a dvanced over the wire and into the venous system. A measurement was then made using the existing wire and live fluoroscopic guidance. The wire was then removed and the trimmed. The PICC was advanced thr ough the peel-away sheath and into the venous system. The peel-away sheath was removed and the cathet er was adhered to the patients arm with a stat lock. The catheter was then aspirated and flushed and a sterile bandage was placed over the access site. A fluoroscopic spot image was saved to PACS confi rming the catheter tip within the superior vena cava. IMPRESSION: SUCCESSFUL PLACEMENT OF A 5 FR DUAL LUMEN 38 CM PICC IN THE RIGHT BASILIC VEIN. COMMENT: Patient medication list reviewed: Yes- Quality ID# 130:Eligible professional attests to doc umenting in the medical record they obtained, updated, or reviewed the patient's current medications. . Quality ID 145: Final reports for procedures using fluoroscopy that document radiation exposure sascha maryan, or exposure time and number of fluorographic images (if radiation exposure indices are not avail able) Quality ID #76: The patient was prepped and draped using maximum sterile barrier technique including cap, mask, sterile gown, sterile gloves, a large sterile sheet, hand hygiene, and 2% Chlorhexidine fo r cutaneous antisepsis. When ultrasound is used, sterile ultrasound techniques are followed requiring sterile gel and sterile probes. TECHNICAL DOCUMENTATION: JOB ID: [id number] [employer]- All Rights Reserved rev Reading location - IP/workstation name: [email or web address]
--- NOTE | 2017-09-17 15:03 | RADIOLOGY REPORT (SQ) ---
EXAM DESCRIPTION: PICC INSERTION; U/S GUIDE FOR VASCULAR ACCESS COMPLETED DATE/TIME: 09/17/2017 2:06 pm REASON FOR STUDY: IV access; IV ACCESS COMPARISON: AP chest 09/17/2017 FLUOROSCOPY TIME: No fluoroscopy 2 digital chest radiographic images, 1 ultrasound image saved to PACS. TECHNIQUE: Fluoroscopic and ultrasound guided PICC placement. LIMITATIONS: None. PROCEDURE: After written consent and assessment were obtained, Ultrasound evaluation of potential ac cess sites were performed. After successfully identifying a patent right basilic vein, the right arm was prepped and draped in a sterile fashion along with the ultrasound probe. The entry site was anest hetized with 1% lidocaine. A 21 gauge 7 cm needle was advanced through the skin and into the basilic vein under live ultrasound guidance. An ultrasound image was saved to PACS confirming access site. A .018 guide wire was then inserted through the needle and into the venous system. The needle was the removed and an 11 blade scalpel was used to make a 1cm skin incision. A 5 fr peel-away sheath was a dvanced over the wire and into the venous system. A measurement was then made using the existing wire and live fluoroscopic guidance. The wire was then removed and the trimmed. The PICC was advanced thr ough the peel-away sheath and into the venous system. The peel-away sheath was removed and the cathet er was adhered to the patients arm with a stat lock. The catheter was then aspirated and flushed and a sterile bandage was placed over the access site. A fluoroscopic spot image was saved to PACS confi rming the catheter tip within the superior vena cava. IMPRESSION: SUCCESSFUL PLACEMENT OF A 5 FR DUAL LUMEN 38 CM PICC IN THE RIGHT BASILIC VEIN. COMMENT: Patient medication list reviewed: Yes- Quality ID# 130:Eligible professional attests to doc umenting in the medical record they obtained, updated, or reviewed the patient's current medications. . Quality ID 145: Final reports for procedures using fluoroscopy that document radiation exposure sascha maryan, or exposure time and number of fluorographic images (if radiation exposure indices are not avail able) Quality ID #76: The patient was prepped and draped using maximum sterile barrier technique including cap, mask, sterile gown, sterile gloves, a large sterile sheet, hand hygiene, and 2% Chlorhexidine fo r cutaneous antisepsis. When ultrasound is used, sterile ultrasound techniques are followed requiring sterile gel and sterile probes. TECHNICAL DOCUMENTATION: JOB ID: [id number] [employer]- All Rights Reserved rev Reading location - IP/workstation name: [facility]
--- NOTE | 2017-09-17 15:23 | RADIOLOGY REPORT (SQ) ---
EXAM DESCRIPTION: CTA CHEST COMPLETED DATE/TIME: 09/17/2017 2:37 pm REASON FOR STUDY: tachycardia, hypoxia, elevated d-dimer COMPARISON: None. TECHNIQUE: CT scan of the chest performed using helical scanning technique with dynamic intravenous contrast injection. Images reviewed with lung, soft tissue and bone windows. Reconstructed coronal and sagittal MPR images reviewed. Additional 3 dimensional post-processing performed to develop Maximal Intensity Projection images (FL P). All images stored on PACS. All CT scanners at this facility use dose modulation, iterative reconstruction, and/or weight based d osing when appropriate to reduce radiation dose to as low as reasonably achievable (ALARA). [facility]: Dose Right [facility]: CareDose [facility]: Dose Right [facility]: Teradose 4D [facility]: [employer] CONTRAST TYPE AND DOSE: contrast/concentration: Isovue 370.00 mg/ml; Total Contrast Delivered: 15.0 ml; Total Saline Delivered: 80.0 ml Contrast bolus optimized for the pulmonary arteries. Not diagnostic for the aorta. RENAL FUNCTION: BUN 31 creatinine 1.37 RADIATION DOSE: CT Rad equipment meets quality standard of care and radiation dose reduction techniq ues were employed. CTDIvol: 19.8 mGy. DLP: 10 mGy-cm. . LIMITATIONS: None. FINDINGS: LUNGS AND PLEURA: Somewhat ill-defined ground-glass infiltrates are present in both lungs. Small pleural effusions. AORTA AND GREAT VESSELS: No aneurysm. Contrast bolus not optimized for the aorta. HEART: No pericardial effusion. Moderate to marked coronary artery calcifications. PULMONARY ARTERIES: No emboli visualized in the main pulmonary arteries or the segmental branches. HILAR AND MEDIASTINAL STRUCTURES: No identified masses or abnormal nodes. HARDWARE: None in the chest. UPPER ABDOMEN: No significant findings. Limited exam. THYROID AND OTHER SOFT TISSUES: No masses. No adenopathy. BONES: No acute or significant finding. 3D MIPS: Confirm above findings. OTHER: No other significant finding. IMPRESSION: 1. There is no evidence of pulmonary emboli. 2. Ground-glass infiltrates in both lungs. Nonspecific finding. Likely chronic interstitial change versus interstitial edema. 3. Small pleural effusions. 4. Coronary atherosclerosis. COMMENT: Quality ID # 436: Final reports with documentation of one or more dose reduction techniques (e.g., Automated exposure control, adjustment of the mA and/or kV according to patient size, use of iterative reconstruction technique) TECHNICAL DOCUMENTATION: JOB ID: [id number] [employer]- All Rights Reserved Reading location - IP/workstation name: [email or web address]
[2017-09-17] MEDS ORDERED: INSULIN LISPRO 100 UNIT/ML 3 ML VIAL SUBCUT ONE (16:00)
[2017-09-17] MEDS: ENOXAPARIN SODIUM INJ 100 MG/1 ML DISP.SYRIN SUBCUT SCH (21:17)
[2017-09-17] MEDS: DOXYCYCLINE HYCLATE 100 MG TABLET PO SCH (21:17)
[2017-09-18 07:23] LABS: HEMATOCRIT 34.2 % (36.0-47.0); HEMOGLOBIN 10.8 g/dL (12.0-15.5); MEAN CORPUSCULAR HEMOGLOBIN 25.8 pg (27.0-33.4); MEAN CORPUSCULAR HGB CONC 31.7 g/dL (32.0-36.0); MEAN CORPUSCULAR VOLUME 82 fl (80-97); PLATELET COUNT 269 10^3/uL (150-450); RED CELL DISTRIBUTION WIDTH 16.9 % (11.5-14.0); WHITE BLOOD COUNT 9.5 10^3/uL (4.0-10.5)
[2017-09-18 07:45] LABS: ANION GAP 9 (5-19); BLOOD UREA NITROGEN 37 mg/dL (7-20); CALCIUM 9.4 mg/dL (8.4-10.2); CARBON DIOXIDE 33 mmol/L (22-30); CHLORIDE 108 mmol/L (98-107); GLUCOSE 160 mg/dL (75-110); POTASSIUM 4.1 mmol/L (3.6-5.0)
[2017-09-18] MEDS: FUROSEMIDE INJ/PF 40 MG/4 ML SDV IV SCH (10:43)
[2017-09-18] MEDS: ENOXAPARIN SODIUM INJ 100 MG/1 ML DISP.SYRIN SUBCUT SCH ×2 (10:44→21:05)
[2017-09-18] MEDS: CEFTRIAXONE 2 GM/D5W RTU 2 GM/50 ML RTUPB IV SCH (10:48)
[2017-09-18] MEDS: DOXYCYCLINE HYCLATE 100 MG TABLET PO SCH ×2 (10:49→21:05)
--- NOTE | 2017-09-18 16:17 | RADIOLOGY REPORT (SQ) ---
EXAM DESCRIPTION: CHEST SINGLE VIEW COMPLETED DATE/TIME: 09/18/2017 4:04 pm REASON FOR STUDY: chf COMPARISON: Chest films 09/17/2017, 08/25/2017 CT angio chest 09/17/2017 EXAM PARAMETERS: NUMBER OF VIEWS: One view. TECHNIQUE: Single frontal radiographic view of the chest acquired. RADIATION DOSE: NA LIMITATIONS: None. FINDINGS: LUNGS AND PLEURA: Slight decrease in pulmonary alveolar and interstitial edema compared to 09/17/2017, 1242 hours. Improved aeration of the left lower lobe, left hemidiaphragm now visible. No pleural effusion. No pneumothorax. MEDIASTINUM AND HILAR STRUCTURES: No masses. Contour normal. HEART AND VASCULAR STRUCTURES: Stable moderate cardiomegaly BONES: No acute findings. HARDWARE: Right PICC line tip superior vena cava OTHER: No other significant finding. IMPRESSION: Decrease in alveolar and interstitial edema pattern compared to yesterday. Improved aeration at the left lower lobe compared to yesterday TECHNICAL DOCUMENTATION: JOB ID: [id number] [employer]- All Rights Reserved Reading location - IP/workstation name: [email or web address]
[2017-09-18] MEDS: INSULIN REG, HUMAN 100 UNIT/ML 3 ML VIAL (PYX) SUBCUT PRN ×2 (16:22→21:40)
--- NOTE | 2017-09-18 17:11 | PDOC PROGRESS REPORT ---
Subjective Progress Note for:: 09/18/17 Subjective:: No adverse events overnight. She was able to come off BiPAP and now she is on 1 L per nasal cannula. Her breathing feels better. Urine outputs been excellent. She denies chest pain or shortness of breath. Reason For Visit: ACUTE HYPOXEMIC RESPIRATORY FAILURE Physical Exam Vital Signs: Temp Pulse Resp BP Pulse Ox 98.9 F 97 12 135/88 H 97 09/18/17 15:28 09/18/17 15:28 09/18/17 15:28 09/18/17 15:28 09/18/17 15:28 Intake & Output 09/17/17 09/18/17 09/19/17 06:59 06:59 06:59 Intake Total 104 300 Balance 104 300 Weight 101.6 kg General appearance: PRESENT: no acute distress, disheveled, morbidly obese, well -developed Respiratory exam: PRESENT: clear to auscultation rodrigue - Possibly had faint bibasilar crackles, but this was an inconsistent finding, unlabored. ABSENT: rales, rhonchi, wheezes Cardiovascular exam: PRESENT: RRR. ABSENT: diastolic murmur, rubs, systolic murmur GI/Abdominal exam: PRESENT: normal bowel sounds, soft. ABSENT: distended, guarding, mass, organolmegaly, rebound, tenderness Extremities exam: PRESENT: +2 edema - This was in the left lower extremity, there was only trace edema in the right lower extremity, other - There are 3 toes missing on the right foot, which was wrapped in gauze. ABSENT: clubbing Neurological exam: PRESENT: alert, awake, oriented to person, oriented to place , oriented to time Results Laboratory Results: 09/18/17 06:05 09/18/17 06:05 09/18/17 09/18/17 06:05 06:05 WBC 9.5 RBC 4.20 Hgb 10.8 L Hct 34.2 L MCV 82 MCH 25.8 L MCHC 31.7 L RDW 16.9 H Plt Count 269 Sodium 150.0 H Potassium 4.1 Chloride 108 H Carbon Dioxide 33 H Anion Gap 9 BUN 37 H Creatinine 1.24 Est GFR ( Amer) 53 L Est GFR (Non-Af Amer) 43 L Glucose 160 H Calcium 9.4 09/18/17 06:05 NT-Pro-B Natriuret Pep 8390 H Impressions: Interventional Vascular Procedure 09/17/17 00:00 IMPRESSION: SUCCESSFUL PLACEMENT OF A 5 FR DUAL LUMEN 38 CM PICC IN THE RIGHT BASILIC VEIN. PICC Line Insertion 09/17/17 00:00 IMPRESSION: SUCCESSFUL PLACEMENT OF A 5 FR DUAL LUMEN 38 CM PICC IN THE RIGHT BASILIC VEIN. Chest/Abdomen CTA 09/17/17 05:02 IMPRESSION: 1. There is no evidence of pulmonary emboli. 2. Ground-glass infiltrates in both lungs. Nonspecific finding. Likely chronic interstitial change versus interstitial edema. 3. Small pleural effusions. 4. Coronary atherosclerosis. Chest X-Ray 09/18/17 00:00 IMPRESSION: Decrease in alveolar and interstitial edema pattern compared to yesterday. Improved aeration at the left lower lobe compared to yesterday Assessment & Plan - Diagnosis (1) Acute hypoxemic respiratory failure Is this a current diagnosis for this admission?: Yes Plan: Much improved. Off BiPAP. On 1 L of oxygen per nasal cannula. (2) Acute exacerbation of CHF (congestive heart failure) Qualifiers: Heart failure type: combined systolic and diastolic Qualified Code(s): I50.43 - Acute on chronic combined systolic (congestive) and diastolic ( congestive) heart failure Is this a current diagnosis for this admission?: Yes Plan: Substantially improved. I am going to stop the IV Lasix and put her back on once a day oral Lasix. Also, on echocardiogram her ejection fraction was down from 35% a few months ago to 25% as of yesterday, so I spoke with Dr. Terry about her, and he recommended getting a stress test on . (3) Uncontrolled diabetes mellitus Qualifiers: Diabetes mellitus type: type 2 Diabetes mellitus complication status: with hyperglycemia Is this a current diagnosis for this admission?: Yes Plan: Improved compared to admission, but she still has some erratic blood sugars. We will have to make sure that she is not eating any food is being brought her from the outside by family or visitors. (4) Diabetic infection of right foot Is this a current diagnosis for this admission?: Yes Plan: She is on the Rocephin and doxycycline she was supposed to be on as an outpatient. She has a PICC line has been replaced. (5) Hypernatremia Is this a current diagnosis for this admission?: Yes Plan: This is probably as a result of diuresis. I have cut back on her Lasix and started her on a diet with a fluid restriction. Am hesitant to give her IV fluids because of how easily she got fluid overloaded prior to admission. (6) Left ventricular thrombus without MD Is this a current diagnosis for this admission?: Yes Plan: She is being anticoagulated. She is currently on Lovenox. Will need to start Coumadin, but a stress test is being scheduled with Dr. Terry on . If she was admitting her cardiac catheterization, we do not want to have to bring her back off of Coumadin, so we will just delay the start of that until after we know whether or not she needs a heart cath. - Time Time Spent with patient: 25-34 minutes Medications reviewed and adjusted accordingly: Yes
[2017-09-18 17:22] LABS: INTERNATIONAL RATION (INR) 1.04; PROTHROMBIN TIME 14.1 SEC (11.4-15.4)
[2017-09-18] MEDS ORDERED: NITROGLYCERIN 0.4 MG/TAB 25 TAB/BOTTLE SL PRN (18:19)
--- NOTE | 2017-09-18 18:54 | EKG REPORT ---
SEVERITY:- ABNORMAL ECG - SINUS TACHYCARDIA PROBABLE LEFT ATRIAL ABNORMALITY LEFT BUNDLE BRANCH BLOCK : Confirmed by: Todd Roth MD 18-Sep-2017 18:53:54
[2017-09-18] MEDS ORDERED: METOPROLOL TARTRATE 25 MG TABLET PO ONE (19:15)
[2017-09-18] MEDS: COLLAGENASE CLOSTRIDIUM HIST. OINT 30 GM TOP SCH (19:40)
[2017-09-18] MEDS: ATORVASTATIN CALCIUM 80 MG TABLET PO SCH (21:05)
[2017-09-18] MEDS ORDERED: WARFARIN SODIUM 5 MG TABLET PO SCH (22:00)
[2017-09-19 04:31] LABS: HEMATOCRIT 34.5 % (36.0-47.0); HEMOGLOBIN 10.8 g/dL (12.0-15.5); MEAN CORPUSCULAR HEMOGLOBIN 25.2 pg (27.0-33.4); MEAN CORPUSCULAR HGB CONC 31.2 g/dL (32.0-36.0); MEAN CORPUSCULAR VOLUME 81 fl (80-97); PLATELET COUNT 272 10^3/uL (150-450); RED BLOOD COUNT 4.28 10^6/uL (3.72-5.28); RED CELL DISTRIBUTION WIDTH 17.5 % (11.5-14.0); WHITE BLOOD COUNT 8.1 10^3/uL (4.0-10.5)
[2017-09-19 04:38] LABS: INTERNATIONAL RATION (INR) 1.07; PROTHROMBIN TIME 14.4 SEC (11.4-15.4)
[2017-09-19 04:46] LABS: ANION GAP 8 (5-19); BLOOD UREA NITROGEN 25 mg/dL (7-20); CALCIUM 8.8 mg/dL (8.4-10.2); CARBON DIOXIDE 29 mmol/L (22-30); CHLORIDE 107 mmol/L (98-107); CHOLESTEROL 204.33 mg/dL (0-200); GLUCOSE 212 mg/dL (75-110); POTASSIUM 3.8 mmol/L (3.6-5.0); SODIUM 144.4 mmol/L (137-145); TRIGLYCERIDES 207 mg/dL (<150)
[2017-09-19 04:57] LABS: DIRECT LDL 107 mg/dL (<100); VLDL CHOLESTEROL 41.4 mg/dL (10-31)
[2017-09-19] MEDS: METOPROLOL TARTRATE 25 MG TABLET PO SCH ×2 (05:09→17:00)
[2017-09-19] MEDS: INSULIN REG, HUMAN 100 UNIT/ML 3 ML VIAL (PYX) SUBCUT PRN ×3 (08:26→16:58)
[2017-09-19] MEDS: CEFTRIAXONE 2 GM/D5W RTU 2 GM/50 ML RTUPB IV SCH (09:28)
[2017-09-19] MEDS: ENOXAPARIN SODIUM INJ 100 MG/1 ML DISP.SYRIN SUBCUT SCH ×2 (09:29→21:30)
[2017-09-19] MEDS: ASPIRIN 325 MG TABLET, ENT COATED PO SCH (09:30)
[2017-09-19] MEDS: FUROSEMIDE 40 MG TABLET PO SCH (09:30)
[2017-09-19] MEDS: DOXYCYCLINE HYCLATE 100 MG TABLET PO SCH ×2 (09:31→21:30)
[2017-09-19] MEDS: BENAZEPRIL HCL 5 MG TABLET PO SCH (09:31)
--- NOTE | 2017-09-19 11:16 | PDOC PROGRESS REPORT ---
Subjective Progress Note for:: 09/19/17 Subjective:: Patient admitted with difficulty breathing and currently on intermittent BiPAP and low 1 L nasal cannula. Patient says her breathing is better. Chest x-ray shows small pleural effusion with decrease in interstitial edema pattern as well as improved aeration of the left lower lung. Reason For Visit: ACUTE HYPOXEMIC RESPIRATORY FAILURE Physical Exam Vital Signs: Temp Pulse Resp BP Pulse Ox 98.7 F 80 20 124/70 93 09/19/17 08:55 09/19/17 08:55 09/19/17 08:55 09/19/17 08:55 09/19/17 09:32 Intake & Output 09/18/17 09/19/17 09/20/17 06:59 06:59 06:59 Intake Total 104 1184 Balance 104 1184 Weight 101.6 kg 100.9 kg General appearance: PRESENT: no acute distress, well-developed, well-nourished Head exam: PRESENT: atraumatic, normocephalic Eye exam: PRESENT: conjunctiva pink, EOMI, PERRLA. ABSENT: scleral icterus Ear exam: PRESENT: normal external ear exam Mouth exam: PRESENT: moist, tongue midline Neck exam: ABSENT: carotid bruit, JVD, lymphadenopathy, thyromegaly Respiratory exam: PRESENT: clear to auscultation rodrigue. ABSENT: rales, rhonchi, wheezes Cardiovascular exam: PRESENT: RRR. ABSENT: diastolic murmur, rubs, systolic murmur Pulses: PRESENT: normal dorsalis pedis pul Vascular exam: PRESENT: normal capillary refill GI/Abdominal exam: PRESENT: normal bowel sounds, soft. ABSENT: distended, guarding, mass, organolmegaly, rebound, tenderness Rectal exam: PRESENT: deferred Extremities exam: PRESENT: full ROM. ABSENT: calf tenderness, clubbing, pedal edema Musculoskeletal exam: PRESENT: other - R foot diabetic ulcer covered with dressing Neurological exam: PRESENT: alert, awake, oriented to person, oriented to place , oriented to time, oriented to situation. ABSENT: motor sensory deficit Psychiatric exam: PRESENT: appropriate affect. ABSENT: homicidal ideation, suicidal ideation Skin exam: PRESENT: warm. ABSENT: cyanosis, rash Results Laboratory Results: 09/19/17 04:15 09/19/17 04:15 09/19/17 09/19/17 04:15 04:15 WBC 8.1 RBC 4.28 Hgb 10.8 L Hct 34.5 L MCV 81 MCH 25.2 L MCHC 31.2 L RDW 17.5 H Plt Count 272 Sodium 144.4 Potassium 3.8 Chloride 107 Carbon Dioxide 29 Anion Gap 8 BUN 25 H Creatinine 1.10 Est GFR ( Amer) > 60 Est GFR (Non-Af Amer) 50 L Glucose 212 H Calcium 8.8 Triglycerides 207 H Cholesterol 204.33 H LDL Cholesterol Direct 107 H VLDL Cholesterol 41.4 H HDL Cholesterol 51 09/18/17 09/18/17 09/18/17 06:05 16:20 22:15 Troponin I 3.630 3.140 NT-Pro-B Natriuret Pep 8390 H 09/19/17 04:15 Troponin I NT-Pro-B Natriuret Pep 8900 H Impressions: Interventional Vascular Procedure 09/17/17 00:00 IMPRESSION: SUCCESSFUL PLACEMENT OF A 5 FR DUAL LUMEN 38 CM PICC IN THE RIGHT BASILIC VEIN. PICC Line Insertion 09/17/17 00:00 IMPRESSION: SUCCESSFUL PLACEMENT OF A 5 FR DUAL LUMEN 38 CM PICC IN THE RIGHT BASILIC VEIN. Chest/Abdomen CTA 09/17/17 05:02 IMPRESSION: 1. There is no evidence of pulmonary emboli. 2. Ground-glass infiltrates in both lungs. Nonspecific finding. Likely chronic interstitial change versus interstitial edema. 3. Small pleural effusions. 4. Coronary atherosclerosis. Chest X-Ray 09/18/17 00:00 IMPRESSION: Decrease in alveolar and interstitial edema pattern compared to yesterday. Improved aeration at the left lower lobe compared to yesterday Assessment & Plan - Time Time Spent with patient: 15-24 minutes Medications reviewed and adjusted accordingly: Yes Anticipated discharge: Home - Inpatient Certification Based on my medical assessment, after consideration of the patient's comorbidities, presenting symptoms, or acuity I expect that the services needed warrant INPATIENT care.: Yes - Plan Summary Plan Summary: Acute hypoxemic respiratory failure likely secondary to acute CHF exacerbation. Will continue with oxygen as needed. 2. Acute CHF decompensation with underlying combined systolic and diastolic heart failure. Recent echocardiogram shows an ejection fraction of 25% which is lower than it was just a few months ago. As such she is scheduled for stress test tomorrow. 3. Poorly controlled type 2 diabetes mellitus we will continue to adjust her insulin as needed 4. Diabetic infection of the right foot currently on Rocephin and doxycycline. She has a PICC line 5. Hypernatremia corrected 6. Left ventricular thrombosis without [place] patient is currently on Lovenox and the plan is to switch her to Coumadin after her stress test as long as there is no need for further intervention. She will need anticoagulation for a few months
[2017-09-19] MEDS: ACETAMINOPHEN 325 MG TABLET PO PRN (14:10)
[2017-09-19] MEDS: COLLAGENASE CLOSTRIDIUM HIST. OINT 30 GM TOP SCH (16:55)
[2017-09-19] MEDS: ATORVASTATIN CALCIUM 80 MG TABLET PO SCH (21:30)
[2017-09-20 04:53] LABS: HEMATOCRIT 33.8 % (36.0-47.0); HEMOGLOBIN 10.7 g/dL (12.0-15.5); MEAN CORPUSCULAR HEMOGLOBIN 25.4 pg (27.0-33.4); MEAN CORPUSCULAR HGB CONC 31.6 g/dL (32.0-36.0); MEAN CORPUSCULAR VOLUME 80 fl (80-97); PLATELET COUNT 244 10^3/uL (150-450); RED BLOOD COUNT 4.21 10^6/uL (3.72-5.28); WHITE BLOOD COUNT 5.9 10^3/uL (4.0-10.5)
[2017-09-20 04:59] LABS: INTERNATIONAL RATION (INR) 1.04; PROTHROMBIN TIME 14.1 SEC (11.4-15.4)
[2017-09-20 05:07] LABS: ANION GAP 10 (5-19); BLOOD UREA NITROGEN 23 mg/dL (7-20); CALCIUM 8.6 mg/dL (8.4-10.2); CARBON DIOXIDE 27 mmol/L (22-30); CHLORIDE 105 mmol/L (98-107); GLUCOSE 132 mg/dL (75-110); POTASSIUM 3.6 mmol/L (3.6-5.0); SODIUM 141.5 mmol/L (137-145)
[2017-09-20] MEDS: METOPROLOL TARTRATE 25 MG TABLET PO SCH ×2 (09:25→18:04)
[2017-09-20] MEDS: ENOXAPARIN SODIUM INJ 100 MG/1 ML DISP.SYRIN SUBCUT SCH ×2 (11:36→21:45)
[2017-09-20] MEDS: BENAZEPRIL HCL 5 MG TABLET PO SCH (11:37)
[2017-09-20] MEDS: DOXYCYCLINE HYCLATE 100 MG TABLET PO SCH ×2 (11:37→21:44)
[2017-09-20] MEDS: ASPIRIN 325 MG TABLET, ENT COATED PO SCH (11:37)
[2017-09-20] MEDS: FUROSEMIDE 40 MG TABLET PO SCH (11:37)
[2017-09-20] MEDS: CEFTRIAXONE 2 GM/D5W RTU 2 GM/50 ML RTUPB IV SCH (11:38)
[2017-09-20] MEDS: INSULIN REG, HUMAN 100 UNIT/ML 3 ML VIAL (PYX) SUBCUT PRN ×3 (12:41→22:11)
[2017-09-20] MEDS ORDERED: REGADENOSON INJ 0.4 MG/5 ML DISP.SYRIN IV ONE (13:58)
--- NOTE | 2017-09-20 16:08 | PDOC PROGRESS REPORT ---
Subjective Progress Note for:: 09/20/17 Subjective:: Patient admitted with difficulty breathing and currently on intermittent BiPAP and low 1 L nasal cannula. Patient says her breathing is better. Chest x-ray shows small pleural effusion with decrease in interstitial edema pattern as well as improved aeration of the left lower lung. Scheduled for stress test today with no acute findings. Reason For Visit: ACUTE HYPOXEMIC RESPIRATORY FAILURE Physical Exam Vital Signs: Temp Pulse Resp BP Pulse Ox 98.1 F 70 16 99/45 L 95 09/20/17 03:20 09/20/17 07:00 09/20/17 03:20 09/20/17 03:20 09/20/17 08:38 Intake & Output 09/19/17 09/20/17 09/21/17 06:59 06:59 06:59 Intake Total 1184 958 Balance 1184 958 Weight 100.9 kg 101.1 kg General appearance: PRESENT: no acute distress, well-developed, well-nourished Head exam: PRESENT: atraumatic, normocephalic Eye exam: PRESENT: conjunctiva pink, EOMI, PERRLA. ABSENT: scleral icterus Ear exam: PRESENT: normal external ear exam Mouth exam: PRESENT: moist, tongue midline Neck exam: ABSENT: carotid bruit, JVD, lymphadenopathy, thyromegaly Respiratory exam: PRESENT: clear to auscultation rodrigue. ABSENT: rales, rhonchi, wheezes Cardiovascular exam: PRESENT: RRR. ABSENT: diastolic murmur, rubs, systolic murmur Pulses: PRESENT: normal dorsalis pedis pul GI/Abdominal exam: PRESENT: normal bowel sounds, soft. ABSENT: distended, guarding, mass, organolmegaly, rebound, tenderness Rectal exam: PRESENT: deferred Extremities exam: PRESENT: full ROM. ABSENT: calf tenderness, clubbing, pedal edema Neurological exam: PRESENT: alert, awake, oriented to person, oriented to place , oriented to time, oriented to situation, CN II-XII grossly intact. ABSENT: motor sensory deficit Psychiatric exam: PRESENT: appropriate affect, normal mood. ABSENT: homicidal ideation, suicidal ideation Skin exam: PRESENT: dry, other - R foot ulcer. ABSENT: cyanosis, rash Results Laboratory Results: 09/20/17 04:15 09/20/17 04:15 09/20/17 09/20/17 04:15 04:15 WBC 5.9 RBC 4.21 Hgb 10.7 L Hct 33.8 L MCV 80 MCH 25.4 L MCHC 31.6 L RDW 17.0 H Plt Count 244 Sodium 141.5 Potassium 3.6 Chloride 105 Carbon Dioxide 27 Anion Gap 10 BUN 23 H Creatinine 1.11 Est GFR ( Amer) > 60 Est GFR (Non-Af Amer) 49 L Glucose 132 H Calcium 8.6 09/17/17 16:30 Foot - Diabetic Ulcer Gram Stain - Final 09/17/17 16:30 Foot - Diabetic Ulcer Wound Culture - Final Pseudomonas Aeruginosa Skin Michell 09/18/17 09/18/17 09/18/17 06:05 16:20 22:15 Troponin I 3.630 3.140 NT-Pro-B Natriuret Pep 8390 H 09/19/17 09/20/17 09/20/17 04:15 04:15 04:15 Troponin I 2.140 NT-Pro-B Natriuret Pep 8900 H 5300 H Impressions: Interventional Vascular Procedure 09/17/17 00:00 IMPRESSION: SUCCESSFUL PLACEMENT OF A 5 FR DUAL LUMEN 38 CM PICC IN THE RIGHT BASILIC VEIN. PICC Line Insertion 09/17/17 00:00 IMPRESSION: SUCCESSFUL PLACEMENT OF A 5 FR DUAL LUMEN 38 CM PICC IN THE RIGHT BASILIC VEIN. Chest/Abdomen CTA 09/17/17 05:02 IMPRESSION: 1. There is no evidence of pulmonary emboli. 2. Ground-glass infiltrates in both lungs. Nonspecific finding. Likely chronic interstitial change versus interstitial edema. 3. Small pleural effusions. 4. Coronary atherosclerosis. Chest X-Ray 09/18/17 00:00 IMPRESSION: Decrease in alveolar and interstitial edema pattern compared to yesterday. Improved aeration at the left lower lobe compared to yesterday Assessment & Plan - Time Time Spent with patient: 25-34 minutes Medications reviewed and adjusted accordingly: Yes Anticipated discharge: SNF - Plan Summary Plan Summary: 1. Discharge summary from [facility] reviewed. It appears patient was placed on 6 weeks of IV ceftriaxone and this is to be continued through October 12 as per the discharge summary. Patient is reluctant to go back to the senior care but her daughter states she can take her back home for IV antibiotics at this time. Complicating this is the fact that I would culture is growing Pseudomonas and had antibiotic has been changed to cefepime. Will review her cultures and results if available from [facility] 2. Acute CHF decompensation with underlying combined systolic and diastolic heart failure. Recent echocardiogram shows an ejection fraction of 25% which is lower than it was just a few months ago. As such she is scheduled for stress test tomorrow. 3. Poorly controlled type 2 diabetes mellitus we will continue to adjust her insulin as needed 4. Diabetic infection of the right foot currently on Rocephin and doxycycline. She has a PICC line 5. Hypernatremia corrected 6. Left ventricular thrombosis without [place] patient is currently on Lovenox and the plan is to switch her to Coumadin after her stress test 7.Acute hypoxemic respiratory failure likely secondary to acute CHF exacerbation. Will continue with oxygen as needed
[2017-09-20] MEDS: COLLAGENASE CLOSTRIDIUM HIST. OINT 30 GM TOP SCH (17:57)
[2017-09-20] MEDS: CEFEPIME 2 GM/D5W RTU 2 GM/50 ML RTUPB IV SCH (18:05)
[2017-09-20] MEDS: ATORVASTATIN CALCIUM 80 MG TABLET PO SCH (21:44)
[2017-09-20] MEDS: WARFARIN SODIUM 5 MG TABLET PO SCH (21:44)
[2017-09-21] MEDS: METOPROLOL TARTRATE 25 MG TABLET PO SCH ×2 (06:04→17:31)
[2017-09-21] MEDS: CEFEPIME 2 GM/D5W RTU 2 GM/50 ML RTUPB IV SCH ×2 (06:04→17:31)
[2017-09-21 06:18] LABS: HEMATOCRIT 34.6 % (36.0-47.0); MEAN CORPUSCULAR HEMOGLOBIN 25.5 pg (27.0-33.4); MEAN CORPUSCULAR HGB CONC 31.9 g/dL (32.0-36.0); MEAN CORPUSCULAR VOLUME 80 fl (80-97); PLATELET COUNT 226 10^3/uL (150-450); RED BLOOD COUNT 4.32 10^6/uL (3.72-5.28); WHITE BLOOD COUNT 5.5 10^3/uL (4.0-10.5)
[2017-09-21 06:22] LABS: INTERNATIONAL RATION (INR) 0.99; PROTHROMBIN TIME 13.6 SEC (11.4-15.4)
[2017-09-21] MEDS: FUROSEMIDE 40 MG TABLET PO SCH (10:29)
[2017-09-21] MEDS: ASPIRIN 325 MG TABLET, ENT COATED PO SCH (10:29)
[2017-09-21] MEDS: ENOXAPARIN SODIUM INJ 100 MG/1 ML DISP.SYRIN SUBCUT SCH ×2 (10:30→21:39)
[2017-09-21] MEDS: BENAZEPRIL HCL 5 MG TABLET PO SCH (10:36)
[2017-09-21] MEDS: INSULIN REG, HUMAN 100 UNIT/ML 3 ML VIAL (PYX) SUBCUT PRN ×2 (15:01→23:29)
[2017-09-21] MEDS: COLLAGENASE CLOSTRIDIUM HIST. OINT 30 GM TOP SCH (15:06)
--- NOTE | 2017-09-21 15:51 | RADIOLOGY REPORT (SQ) ---
EXAM DESCRIPTION: VENOUS BILATERAL LOWER COMPLETED DATE/TIME: 09/21/2017 3:32 pm REASON FOR STUDY: LV thrombus, LLE swelling COMPARISON: 06/12/2017, 03/01/2017 TECHNIQUE: Dynamic and static roman scale and color images acquired of both lower extremity venous sy stems. Selected spectral images acquired with additional compression and augmentation maneuvers. Imag es stored on PACS. LIMITATIONS: None. FINDINGS: RIGHT LEG COMMON FEMORAL AND FEMORAL: Normal phasicity, compression and augmentation. No visualized echogenic m aterial on roman scale. No defects on color images. POPLITEAL: Normal compression and augmentation. No visualized echogenic material on roman scale. No de fects on color images. CALF VESSELS: Normal compression and augmentation. No visualized echogenic material on roman scale. No defects on color image. GSV AND SSV: Normal compression. No visualized echogenic material on roman scale. No defects on color images. ANY DEEP VENOUS INSUFFICIENCY: Not evaluated. ANY EVIDENCE OF POPLITEAL CYST: No. OTHER: No other significant finding. LEFT LEG COMMON FEMORAL AND FEMORAL: Normal phasicity, compression and augmentation. No visualized echogenic m aterial on roman scale. No defects on color images. POPLITEAL: Normal compression and augmentation. No visualized echogenic material on roman scale. No de fects on color images. CALF VESSELS: Normal compression and augmentation. No visualized echogenic material on roman scale. No defects on color images. GSV AND SSV: Normal compression. No visualized echogenic material on roman scale. No defects on color images. ANY DEEP VENOUS INSUFFICIENCY: Not evaluated. ANY EVIDENCE POPLITEAL CYST: No. OTHER: No other significant finding. IMPRESSION: NO EVIDENCE DVT OR SVT IN EITHER LEG. TECHNICAL DOCUMENTATION: JOB ID: [id number] [employer]- All Rights Reserved Reading location - IP/workstation name: [email or web address]
--- NOTE | 2017-09-21 17:33 | PDOC PROGRESS REPORT ---
Subjective Progress Note for:: 09/21/17 Subjective:: Patient admitted with difficulty breathing and currently on intermittent BiPAP and low 1 L nasal cannula. Patient says her breathing is better. Chest x-ray shows small pleural effusion with decrease in interstitial edema pattern as well as improved aeration of the left lower lung. stress test shows no acute findings. Reason For Visit: ACUTE HYPOXEMIC RESPIRATORY FAILURE Physical Exam Vital Signs: Temp Pulse Resp BP Pulse Ox 97.4 F 71 16 134/76 H 93 09/21/17 08:14 09/21/17 08:14 09/21/17 08:14 09/21/17 08:14 09/21/17 08:14 Intake & Output 09/20/17 09/21/17 09/22/17 06:59 06:59 06:59 Intake Total 958 711 Balance 958 711 Weight 101.1 kg 100 kg General appearance: PRESENT: no acute distress, well-developed, well-nourished Head exam: PRESENT: atraumatic, normocephalic Eye exam: PRESENT: conjunctiva pink, EOMI, PERRLA. ABSENT: scleral icterus Ear exam: PRESENT: normal external ear exam Mouth exam: PRESENT: moist, tongue midline Neck exam: ABSENT: carotid bruit, JVD, lymphadenopathy, thyromegaly Respiratory exam: PRESENT: clear to auscultation rodrigue. ABSENT: rales, rhonchi, wheezes Cardiovascular exam: PRESENT: RRR. ABSENT: diastolic murmur, rubs, systolic murmur Pulses: PRESENT: normal dorsalis pedis pul Vascular exam: PRESENT: normal capillary refill GI/Abdominal exam: PRESENT: normal bowel sounds, soft. ABSENT: distended, guarding, mass, organolmegaly, rebound, tenderness Rectal exam: PRESENT: deferred Extremities exam: PRESENT: full ROM, other - R foot wound. ABSENT: calf tenderness, clubbing Neurological exam: PRESENT: alert, awake, oriented to person, oriented to place , oriented to time, oriented to situation, CN II-XII grossly intact. ABSENT: motor sensory deficit Psychiatric exam: PRESENT: appropriate affect, normal mood. ABSENT: homicidal ideation, suicidal ideation Skin exam: PRESENT: intact, rash, other - wound RLE. ABSENT: cyanosis Results Laboratory Results: 09/21/17 06:00 09/20/17 04:15 09/21/17 06:00 WBC 5.5 RBC 4.32 Hgb 11.0 L Hct 34.6 L MCV 80 MCH 25.5 L MCHC 31.9 L RDW 17.0 H Plt Count 226 09/18/17 09/18/17 09/18/17 06:05 16:20 22:15 Troponin I 3.630 3.140 NT-Pro-B Natriuret Pep 8390 H 09/19/17 09/20/17 09/20/17 04:15 04:15 04:15 Troponin I 2.140 NT-Pro-B Natriuret Pep 8900 H 5300 H Impressions: Interventional Vascular Procedure 09/17/17 00:00 IMPRESSION: SUCCESSFUL PLACEMENT OF A 5 FR DUAL LUMEN 38 CM PICC IN THE RIGHT BASILIC VEIN. PICC Line Insertion 09/17/17 00:00 IMPRESSION: SUCCESSFUL PLACEMENT OF A 5 FR DUAL LUMEN 38 CM PICC IN THE RIGHT BASILIC VEIN. Chest/Abdomen CTA 09/17/17 05:02 IMPRESSION: 1. There is no evidence of pulmonary emboli. 2. Ground-glass infiltrates in both lungs. Nonspecific finding. Likely chronic interstitial change versus interstitial edema. 3. Small pleural effusions. 4. Coronary atherosclerosis. Chest X-Ray 09/18/17 00:00 IMPRESSION: Decrease in alveolar and interstitial edema pattern compared to yesterday. Improved aeration at the left lower lobe compared to yesterday Venous Doppler Study 09/21/17 00:00 IMPRESSION: NO EVIDENCE DVT OR SVT IN EITHER LEG. Assessment & Plan - Time Time Spent with patient: 15-24 minutes Medications reviewed and adjusted accordingly: Yes Anticipated discharge: SNF Within: within 72 hours - Inpatient Certification Based on my medical assessment, after consideration of the patient's comorbidities, presenting symptoms, or acuity I expect that the services needed warrant INPATIENT care.: Yes Medical Necessity: Need for IV Antibiotics - Plan Summary Plan Summary: 1. Discharge summary from [facility] reviewed. It appears patient was placed on 6 weeks of IV ceftriaxone and this is to be continued through October 12 as per the discharge summary. Patient is currently on cefepime for positive Pseudomonas growing in her wound culture however she was on ceftriaxone for possible osteomyelitis of the same right foot unfortunately I try to obtain records from [facility] again specifically the microbiology report so as to ensure that the patient is on appropriate antibiotics and as of now I have not received the microbiology report. As of now she will be kept in hospital until we can confirm that she is on the proper antibiotics 2. Acute CHF decompensation with underlying combined systolic and diastolic heart failure. Recent echocardiogram shows an ejection fraction of 25% which is lower than it was just a few months ago. 3. Poorly controlled type 2 diabetes mellitus we will continue to adjust her insulin as needed 4. Diabetic infection of the right foot currently on cefepime. She has a PICC line As part discharge summary from [facility] she was on doxycycline for pneumonia and this was to be for an additional 7 days only 5. Hypernatremia corrected 6. Left ventricular thrombosis without [place] patient is currently on Lovenox a bridge and Coumadin was started yesterday. 7.Acute hypoxemic respiratory failure likely secondary to acute CHF exacerbation. Will continue with oxygen as needed. She has not had to use BiPAP for a few days
[2017-09-21] MEDS: ATORVASTATIN CALCIUM 80 MG TABLET PO SCH (21:39)
[2017-09-21] MEDS: WARFARIN SODIUM 5 MG TABLET PO SCH (21:39)
[2017-09-21] MEDS: INSULIN GLARGINE,HUM.REC.ANLOG 300 UNIT/3 ML INSULN.PEN SUBCUT SCH (21:39)
[2017-09-22] MEDS: CEFEPIME 2 GM/D5W RTU 2 GM/50 ML RTUPB IV SCH ×2 (05:25→17:49)
[2017-09-22] MEDS: METOPROLOL TARTRATE 25 MG TABLET PO SCH ×2 (05:25→17:49)
[2017-09-22 06:09] LABS: INTERNATIONAL RATION (INR) 1.04; PROTHROMBIN TIME 14.1 SEC (11.4-15.4)
[2017-09-22] MEDS: INSULIN LISPRO 100 UNIT/ML 3 ML VIAL SUBCUT SCH ×3 (08:18→17:49)
[2017-09-22] MEDS: INSULIN REG, HUMAN 100 UNIT/ML 3 ML VIAL (PYX) SUBCUT PRN ×4 (08:19→22:13)
[2017-09-22] MEDS: ASPIRIN 325 MG TABLET, ENT COATED PO SCH (10:56)
[2017-09-22] MEDS: FUROSEMIDE 40 MG TABLET PO SCH (10:56)
[2017-09-22] MEDS: ENOXAPARIN SODIUM INJ 100 MG/1 ML DISP.SYRIN SUBCUT SCH ×2 (10:57→22:12)
[2017-09-22] MEDS: INSULIN GLARGINE,HUM.REC.ANLOG 300 UNIT/3 ML INSULN.PEN SUBCUT SCH ×2 (10:59→22:12)
[2017-09-22] MEDS: BENAZEPRIL HCL 5 MG TABLET PO SCH (11:01)
[2017-09-22] MEDS ORDERED: ZOLPIDEM TARTRATE 5 MG TABLET PO PRN (14:40)
--- NOTE | 2017-09-22 14:47 | PDOC PROGRESS REPORT ---
Subjective Progress Note for:: 09/22/17 Subjective:: Patient admitted with difficulty breathing and currently on intermittent BiPAP and low 1 L nasal cannula. Patient says her breathing is better. Chest x-ray shows small pleural effusion with decrease in interstitial edema pattern as well as improved aeration of the left lower lung. stress test shows no acute findings. Plan is for discharge tomorrow or Sunday. I am still waiting for the microbiology results from [place] Reason For Visit: ACUTE HYPOXEMIC RESPIRATORY FAILURE Physical Exam Vital Signs: Temp Pulse Resp BP Pulse Ox 97.7 F 73 18 132/76 H 100 09/22/17 11:31 09/22/17 11:31 09/22/17 11:31 09/22/17 11:31 09/22/17 11:31 Intake & Output 09/21/17 09/22/17 09/23/17 06:59 06:59 06:59 Intake Total 711 2709 400 Balance 711 2709 400 Weight 100 kg 98.7 kg General appearance: PRESENT: no acute distress, well-developed, well-nourished Head exam: PRESENT: atraumatic, normocephalic Eye exam: PRESENT: conjunctiva pink, EOMI, PERRLA. ABSENT: scleral icterus Ear exam: PRESENT: normal external ear exam Mouth exam: PRESENT: moist, tongue midline Neck exam: ABSENT: carotid bruit, JVD, lymphadenopathy, thyromegaly Respiratory exam: PRESENT: clear to auscultation rodrigue. ABSENT: rales, rhonchi, wheezes Cardiovascular exam: PRESENT: RRR. ABSENT: diastolic murmur, rubs, systolic murmur Pulses: PRESENT: normal dorsalis pedis pul Vascular exam: PRESENT: normal capillary refill GI/Abdominal exam: PRESENT: normal bowel sounds, soft. ABSENT: distended, guarding, mass, organolmegaly, rebound, tenderness Rectal exam: PRESENT: deferred Extremities exam: PRESENT: full ROM. ABSENT: calf tenderness, clubbing, pedal edema Musculoskeletal exam: PRESENT: other - Right foot covered with dressing, clean wound, Neurological exam: PRESENT: alert, awake, oriented to person, oriented to place , oriented to time, oriented to situation, CN II-XII grossly intact. ABSENT: motor sensory deficit Psychiatric exam: PRESENT: appropriate affect, normal mood. ABSENT: homicidal ideation, suicidal ideation Skin exam: PRESENT: dry, intact, warm. ABSENT: cyanosis, rash Results Laboratory Results: 09/21/17 06:00 09/20/17 04:15 09/18/17 09/18/17 09/18/17 06:05 16:20 22:15 Troponin I 3.630 3.140 NT-Pro-B Natriuret Pep 8390 H 09/19/17 09/20/17 09/20/17 04:15 04:15 04:15 Troponin I 2.140 NT-Pro-B Natriuret Pep 8900 H 5300 H Impressions: Interventional Vascular Procedure 09/17/17 00:00 IMPRESSION: SUCCESSFUL PLACEMENT OF A 5 FR DUAL LUMEN 38 CM PICC IN THE RIGHT BASILIC VEIN. PICC Line Insertion 09/17/17 00:00 IMPRESSION: SUCCESSFUL PLACEMENT OF A 5 FR DUAL LUMEN 38 CM PICC IN THE RIGHT BASILIC VEIN. Chest/Abdomen CTA 09/17/17 05:02 IMPRESSION: 1. There is no evidence of pulmonary emboli. 2. Ground-glass infiltrates in both lungs. Nonspecific finding. Likely chronic interstitial change versus interstitial edema. 3. Small pleural effusions. 4. Coronary atherosclerosis. Chest X-Ray 09/18/17 00:00 IMPRESSION: Decrease in alveolar and interstitial edema pattern compared to yesterday. Improved aeration at the left lower lobe compared to yesterday Venous Doppler Study 09/21/17 00:00 IMPRESSION: NO EVIDENCE DVT OR SVT IN EITHER LEG. Assessment & Plan - Diagnosis (1) Acute hypoxemic respiratory failure Is this a current diagnosis for this admission?: Yes (2) Diabetic infection of right foot Is this a current diagnosis for this admission?: Yes (3) Hyperglycemia Is this a current diagnosis for this admission?: Yes (4) Left ventricular thrombus without [place] Is this a current diagnosis for this admission?: Yes - Time Time Spent with patient: 15-24 minutes Medications reviewed and adjusted accordingly: Yes Anticipated discharge: SNF Within: within 48 hours - Inpatient Certification Based on my medical assessment, after consideration of the patient's comorbidities, presenting symptoms, or acuity I expect that the services needed warrant INPATIENT care.: Yes Medical Necessity: Need for IV Antibiotics - Plan Summary Plan Summary: We will continue antibiotics and hopefully I can review the microbiology reports today to ensure patient is on appropriate treatment
[2017-09-22] MEDS: ACETAMINOPHEN 325 MG TABLET PO PRN (17:49)
[2017-09-22] MEDS: COLLAGENASE CLOSTRIDIUM HIST. OINT 30 GM TOP SCH (17:49)
[2017-09-22] MEDS: ATORVASTATIN CALCIUM 80 MG TABLET PO SCH (22:12)
[2017-09-22] MEDS: WARFARIN SODIUM 5 MG TABLET PO SCH (22:12)
[2017-09-23] MEDS: METOPROLOL TARTRATE 25 MG TABLET PO SCH ×2 (05:41→17:57)
[2017-09-23] MEDS: CEFEPIME 2 GM/D5W RTU 2 GM/50 ML RTUPB IV SCH ×2 (05:41→17:57)
[2017-09-23 06:11] LABS: INTERNATIONAL RATION (INR) 0.98; PROTHROMBIN TIME 13.5 SEC (11.4-15.4)
[2017-09-23] MEDS: INSULIN LISPRO 100 UNIT/ML 3 ML VIAL SUBCUT SCH ×3 (08:02→16:30)
[2017-09-23] MEDS: INSULIN REG, HUMAN 100 UNIT/ML 3 ML VIAL (PYX) SUBCUT PRN ×4 (08:02→22:33)
[2017-09-23] MEDS: INSULIN GLARGINE,HUM.REC.ANLOG 300 UNIT/3 ML INSULN.PEN SUBCUT SCH ×2 (11:32→22:32)
[2017-09-23] MEDS: ASPIRIN 325 MG TABLET, ENT COATED PO SCH (11:33)
[2017-09-23] MEDS: BENAZEPRIL HCL 5 MG TABLET PO SCH (11:34)
[2017-09-23] MEDS: ENOXAPARIN SODIUM INJ 100 MG/1 ML DISP.SYRIN SUBCUT SCH ×2 (11:34→22:32)
[2017-09-23] MEDS: FUROSEMIDE 40 MG TABLET PO SCH (11:34)
--- NOTE | 2017-09-23 15:04 | PDOC PROGRESS REPORT ---
Subjective Progress Note for:: 09/23/17 Subjective:: Patient admitted with difficulty breathing and currently on intermittent BiPAP and low 1 L nasal cannula. Patient says her breathing is better. Chest x-ray shows small pleural effusion with decrease in interstitial edema pattern as well as improved aeration of the left lower lung. stress test shows no acute findings. Plan is for discharge tomorrow or Sunday. I reviewed the Wound culture and gram stain from [facility] and this reveals moderate Staphylococcus aureus methicillin sensitive and heavy Streptococcus beta-hemolytic group B agalactiae. Sensitivities as by the antibiogram to Levaquin, amoxicillin, Rocephin at less than 4. In fact it was widely pansensitive except to penicillin. The dilemma comes from the fact that patient also grew Pseudomonas from the wound culture at this hospital which is sensitive mostly to fourth generation cephalosporin as well as aminoglycosides. She had been on ceftriaxone prior to admission and was supposed to continue this until October 12. Was switched to cefepime on 09/20 to cover the pseudomonal cellulitis that she has at the same site. She was thought to have osteomyelitis and so was supposed to be in 6 weeks of ceftriaxone treatment. At this point so as to ensure the patient is receiving adequate treatment for the osteomyelitis as well as the Pseudomonas infection I would like infectious disease to review and make sure that she is been adequately treated. Infectious disease consult will be ordered Reason For Visit: ACUTE HYPOXEMIC RESPIRATORY FAILURE Physical Exam Vital Signs: Temp Pulse Resp BP Pulse Ox 97.6 F 71 16 112/62 96 09/23/17 04:00 09/23/17 07:00 09/23/17 04:00 09/23/17 04:00 09/23/17 04:00 Intake & Output 09/22/17 09/23/17 09/24/17 06:59 06:59 06:59 Intake Total 2709 1075 Balance 2709 1075 Weight 98.7 kg 99.4 kg General appearance: PRESENT: no acute distress, well-developed, well-nourished Head exam: PRESENT: atraumatic, normocephalic Eye exam: PRESENT: conjunctiva pink, EOMI, PERRLA. ABSENT: scleral icterus Ear exam: PRESENT: normal external ear exam Mouth exam: PRESENT: moist, tongue midline Neck exam: ABSENT: carotid bruit, JVD, lymphadenopathy, thyromegaly Respiratory exam: PRESENT: clear to auscultation rodrigue. ABSENT: rales, rhonchi, wheezes Cardiovascular exam: PRESENT: RRR. ABSENT: diastolic murmur, rubs, systolic murmur Pulses: PRESENT: normal dorsalis pedis pul Vascular exam: PRESENT: normal capillary refill GI/Abdominal exam: PRESENT: normal bowel sounds, soft. ABSENT: distended, guarding, mass, organolmegaly, rebound, tenderness Rectal exam: PRESENT: deferred Extremities exam: PRESENT: other - healing R foot wound, no exudates. ABSENT: calf tenderness, clubbing, pedal edema Neurological exam: PRESENT: alert, awake, oriented to person, oriented to place , oriented to time, oriented to situation, CN II-XII grossly intact. ABSENT: motor sensory deficit Psychiatric exam: PRESENT: appropriate affect, normal mood. ABSENT: homicidal ideation, suicidal ideation Skin exam: PRESENT: dry, intact, warm. ABSENT: cyanosis, rash Results Laboratory Results: 09/21/17 06:00 09/20/17 04:15 09/18/17 09/18/17 09/18/17 06:05 16:20 22:15 Troponin I 3.630 3.140 NT-Pro-B Natriuret Pep 8390 H 09/19/17 09/20/17 09/20/17 04:15 04:15 04:15 Troponin I 2.140 NT-Pro-B Natriuret Pep 8900 H 5300 H Impressions: Interventional Vascular Procedure 09/17/17 00:00 IMPRESSION: SUCCESSFUL PLACEMENT OF A 5 FR DUAL LUMEN 38 CM PICC IN THE RIGHT BASILIC VEIN. PICC Line Insertion 09/17/17 00:00 IMPRESSION: SUCCESSFUL PLACEMENT OF A 5 FR DUAL LUMEN 38 CM PICC IN THE RIGHT BASILIC VEIN. Chest/Abdomen CTA 09/17/17 05:02 IMPRESSION: 1. There is no evidence of pulmonary emboli. 2. Ground-glass infiltrates in both lungs. Nonspecific finding. Likely chronic interstitial change versus interstitial edema. 3. Small pleural effusions. 4. Coronary atherosclerosis. Chest X-Ray 09/18/17 00:00 IMPRESSION: Decrease in alveolar and interstitial edema pattern compared to yesterday. Improved aeration at the left lower lobe compared to yesterday Venous Doppler Study 09/21/17 00:00 IMPRESSION: NO EVIDENCE DVT OR SVT IN EITHER LEG. Assessment & Plan - Diagnosis (1) Acute hypoxemic respiratory failure Is this a current diagnosis for this admission?: Yes (2) Diabetic infection of right foot Is this a current diagnosis for this admission?: Yes (3) Hyperglycemia Is this a current diagnosis for this admission?: Yes (4) Left ventricular thrombus without ID Is this a current diagnosis for this admission?: Yes Plan: Increase Coumadin as INR has not budges though Day 3. Cont Lovenox bridge - Time Time Spent with patient: 15-24 minutes Medications reviewed and adjusted accordingly: Yes Anticipated discharge: SNF Within: within 24 hours - Inpatient Certification Based on my medical assessment, after consideration of the patient's comorbidities, presenting symptoms, or acuity I expect that the services needed warrant INPATIENT care.: Yes Medical Necessity: Need for IV Antibiotics
[2017-09-23] MEDS ORDERED: WARFARIN SODIUM 5 MG TABLET PO SCH (15:06)
[2017-09-23] MEDS: COLLAGENASE CLOSTRIDIUM HIST. OINT 30 GM TOP SCH (16:32)
--- NOTE | 2017-09-23 21:44 | DRAGON STRESS TEST REPORT ---
Intravenous Lexiscan Cardiolite stress test using single photon emmision computerized tomography. Date of procedure: 09/20/2017. Ordering Provider: Dr. Carmelo Elias. Patient's status: In Patient. Indication: Shortness of breath and elevated troponin I and cardiomyopathy.. Coronary risk factors: Age, diabetes mellitus, hypertension, and history of dyslipidemia. Resting EKG: Sinus Rhythm. LBBB. Stress EKG:[ Non diagnostic of ischemia, due to LBBB. The patient had no chest pain or discomfort and there were no arrhythmias seen. Reason for termination: Protocol. Conclusions: Non diagnostic EKG for ischemia and normal hemodynamic response to IV Lexiscan. Nuclear data: At rest the patient was given 14.10 millicuries of technetium 99m sestamibi injected intravenously. As per protocol rest non gated SPECT images were obtained. Subsequently the patient was given intravenous Lexiscan at a dose of 0.4 mg in 5 mL intravenously, followed by flush with normal saline. Subsequently the stress dose of 44.0 millicuries of technetium 99m sestamibi was injected intravenously. As per protocol stress gated images were obtained. Nuclear interpretation: Review of images showed that all there was a perfusion defect involving the left ventricular apex and the apical inferior wall in both the rest and stress images these areas had severely diminished/absent motion thickening and contraction. Hence this represents a scar the rest of the segments of the myocardium had normal perfusion at rest, and normal perfusion post stress with IV Lexiscan. All segments of the myocardium had normal thickening by gated study. There was left ventricular dilatation, and severe hypokinesis of the rest of segments. T. I D. ratio was normal at 1.01. Computer read rest, and stress left ventricular ejection fraction were 37 %, and 27 %, respectively. Conclusion: 1. There is no scintigraphic evidence of Lexiscan induced myocardial ischemia. 2. There is scintigraphic evidence of myocardial infarction/scar involving the left ventricular apex, and apical inferior wall 3. There is left ventricular dilatation with severely reduced LV ejection fraction consistent with mixed { ischemic and dilated }. Cardiomyopathy. Recommendations: Aggressive treatment of coronary artery disease and cardiomyopathy with approach appropriate medication maximize as tolerated and aggressive risk factor modification, and treating the underlying co- morbidities. Would recommend echo correlation for LV ejection fraction. If still the repeat echo shows moderately or severely reduced ejection fraction [35% or below] in 3 months, then would recommend referral for AICD placement. MTDD
[2017-09-23] MEDS ORDERED: WARFARIN SODIUM 7.5 MG TABLET PO SCH (22:00)
[2017-09-23] MEDS: ATORVASTATIN CALCIUM 80 MG TABLET PO SCH (22:33)
[2017-09-24] MEDS: CEFEPIME 2 GM/D5W RTU 2 GM/50 ML RTUPB IV SCH (05:47)
[2017-09-24] MEDS: METOPROLOL TARTRATE 25 MG TABLET PO SCH (05:47)
[2017-09-24 06:04] LABS: HEMATOCRIT 36.7 % (36.0-47.0); HEMOGLOBIN 11.8 g/dL (12.0-15.5); RED BLOOD COUNT 4.55 10^6/uL (3.72-5.28); WHITE BLOOD COUNT 5.9 10^3/uL (4.0-10.5)
[2017-09-24 06:05] LABS: MEAN CORPUSCULAR HGB CONC 32.2 g/dL (32.0-36.0); MEAN CORPUSCULAR VOLUME 81 fl (80-97); PLATELET COUNT 203 10^3/uL (150-450); RED CELL DISTRIBUTION WIDTH 17.6 % (11.5-14.0)
[2017-09-24] MEDS: BENAZEPRIL HCL 5 MG TABLET PO SCH (09:08)
[2017-09-24] MEDS: INSULIN LISPRO 100 UNIT/ML 3 ML VIAL SUBCUT SCH ×2 (09:09→12:31)
[2017-09-24] MEDS: ASPIRIN 325 MG TABLET, ENT COATED PO SCH (09:09)
[2017-09-24] MEDS: ENOXAPARIN SODIUM INJ 100 MG/1 ML DISP.SYRIN SUBCUT SCH (09:09)
[2017-09-24] MEDS: FUROSEMIDE 40 MG TABLET PO SCH (09:09)
[2017-09-24] MEDS: INSULIN GLARGINE,HUM.REC.ANLOG 300 UNIT/3 ML INSULN.PEN SUBCUT SCH (09:10)
[2017-09-24] MEDS: COLLAGENASE CLOSTRIDIUM HIST. OINT 30 GM TOP SCH (11:12)
[2017-09-24 12:23] VITALS: BP 113/68
[2017-09-24] MEDS: INSULIN REG, HUMAN 100 UNIT/ML 3 ML VIAL (PYX) SUBCUT PRN (12:34)
[2017-09-24 13:27] LABS: APPEARANCE,URINE CLEAR; BILIRUBIN,URINE NEGATIVE (NEGATIVE); COLOR,URINE YELLOW; GLUCOSE, URINE >=500 mg/dL (NEGATIVE); KETONES,URINE NEGATIVE (NEGATIVE); LEUKOCYTE ESTERASE,URINE NEGATIVE (NEGATIVE); NITRITE,URINE NEGATIVE (NEGATIVE); PROTEIN,URINE >=500 mg/dL (NEGATIVE); UROBILINOGEN,URINE NEGATIVE mg/dL (<2.0)
--- NOTE | 2017-09-24 14:35 | Progress Note ---
Provider Note Provider Note: ID Consult Note Asked to review patient's chart by Dr Underwood and discussed via telephone. Ms. 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 Ms. Taveras recently had the PICC line accidentally removed 3-4 days [employer]. She was actually admitted, however, for an unrelated problem - CHF exacerbation manifest with acute onset SOB with hypoxemia, CXR findings c/w pulmonary edema, elevated NT proBNP. She has had no leukocytosis. She has had no fever. Respiratory failure was managed with diuresis and BiPAP. She has had no reported worsening of the appearance of the foot wound, but it was swabbed and sent for culture that grew 4+ skin gaby and 2+ Pseudomonas aeruginosa, resistant to fluoroquinolones but otherwise susceptible to agents tested. Blood culture shave shown no growth. For her foot, PICC line was replaced. Her antibiotic therapy was broadened to cefepime on basis of the culture results while awaiting Infectious Disease input. Impression/Recommendations R foot diabetic foot infection with osteomyelitis due to Group B Strep and MSSA Asymptomatic colonization of diabetic foot wound with Pseudomonas aeruginosa - Pt had Pseudomonas aeruginosa from a superficial wound swab in absence of any clinical evidence of worsening or superimposed infection. In many patients with diabetic foot wounds, Pseudomonas can be a nonpathogenic colonizer. Ms Taveras does not have worsening signs/symptoms of local or systemic inflammation to suggest that she has uncontrolled or superimposed infection that is in need of change in antibiotic therapy. Superficial wound swabs have little role in determining treatment in diabetic foot osteomyelitis as they can reflect growth of organisms present on the surface that are not more deeply involved and are not acting as pathogens, and that is what this growth of Pseudomonas appears to be. - Pt does not need change in therapy. Recommend that she should continue treatment as previously planned by her physicians at [facility] with IV Rocephin. Jeff Gonsalez MD [facility] Infectious Diseases, pager [phone]
--- NOTE | 2017-09-24 15:08 | PDOC DISCHARGE SUMMARY ---
General - Admit/Disc Date/PCP Admission Date/Primary Care Provider: 09/17/17 08:29 BRENNEN CHRISTIAN MD Discharge Date: 09/24/17 - Discharge Diagnosis (1) Acute hypoxemic respiratory failure Is this a current diagnosis for this admission?: Yes Summary: #2 CHF decompensation (2) Diabetic infection of right foot Is this a current diagnosis for this admission?: Yes (3) Hyperglycemia Is this a current diagnosis for this admission?: Yes (4) Left ventricular thrombus without NM Is this a current diagnosis for this admission?: Yes (5) Osteomyelitis Is this a current diagnosis for this admission?: Yes (6) Chronic pain Is this a current diagnosis for this admission?: Yes (7) Cardiomyopathy Is this a current diagnosis for this admission?: Yes Summary: EF of 25%. Follow-up with Dr. Daniel (8) Acute exacerbation of CHF (congestive heart failure) Is this a current diagnosis for this admission?: Yes - Additional Information Resuscitation Status: Full Code Discharge Diet: Cardiac, Diabetic Discharge Activity: Activity As Tolerated, Weigh Daily Home Medications: Docusate Sodium [Colace 100 mg Capsule] 100 mg PO DAILYP PRN 04/17/17 Gabapentin [Neurontin] 800 mg PO Q8 04/17/17 Omeprazole 40 mg PO Q6AM 04/17/17 Ondansetron HCl [Zofran 4 mg Tablet] 4 mg PO Q8HP PRN 04/17/17 Budesonide [Pulmicort 180 mcg Flexhaler] 1 puff IH Q12HP PRN 09/17/17 Ceftriaxone 2 gm/D5w RTU [Rocephin RTU 2 gm/D5w 50 ml Premix Bag] 2 gm IV DAILY MDD last dose 10/12/17 09/17/17 Collagenase Clostridium Hist. [Santyl Ointment 30 gm] 1 applic TP DAILY Ipratropium/Albuterol Sulfate [Duoneb 3 ml Ampul] 3 ml NEB RTQ4HP PRN 09/17/17 Aspirin [Ecotrin 325 mg EC Tablet] 325 mg PO DAILY tabec 09/24/17 Atorvastatin Calcium [Lipitor 80 mg Tablet] 80 mg PO QHS tablet 09/24/17 Benazepril HCl [Lotensin 5 mg Tablet] 5 mg PO DAILY tablet 09/24/17 Collagenase Clostridium Hist. [Santyl Ointment 30 gm] 1 applic TOP DAILY@1700 tube 09/24/17 Enoxaparin Sodium [Lovenox Inj 100 mg/1 ml Disp.syrin] 100 mg SUBCUT Q12 disp.syrin 09/24/17 Furosemide [Lasix 40 mg Tablet] 40 mg PO DAILY tablet 09/24/17 Insulin Lispro [Humalog Insulin (Lispro) 100 unit/mL] 10 unit SUBCUT AC unit Metoprolol Tartrate [Lopressor 25 mg Tablet] 12.5 mg PO Q12A tablet 09/24/17 Nitroglycerin [Nitrostat 0.4 mg (1/150 Gr) Tabs 25/Bottle] 1 tab SL Q5MP PRN bottle 09/24/17 Warfarin Sodium [Coumadin 7.5 mg Tablet] 7.5 mg PO QHS tablet 09/24/17 Zolpidem Tartrate [Ambien 5 mg Tablet] 5 mg PO HSP PRN tablet 09/24/17 History of Present Illness History of Present Illness: EDUARDA JARRELL is a 67 year old female She is not sure what, but apparently her daughter says she was in this hospital for about a week or 2 and got a PICC line here, was sent to [facility] and was there for about another month, had surgery on her foot for some sort of infection, and then was sent to a senior living here in [place] and has been there for about a week. Her PICC line got pulled out by accident 3 or 4 days ago and the daughter says that the patient is supposed to get another 3 weeks or so of IV antibiotics. She does not know which antibiotic. She was sent here today because she had acute onset of shortness of breath. She was found to be hypoxemic with SPO2 in the 70s. She was brought over here to the ER and put on BiPAP. A d-dimer was checked and it was elevated and a CTA of the chest was ordered but was unable to be performed because they tried to get 2 IV lines on her and both of them went bad. Chest x- ray showed some evidence of some mild pulmonary edema suggesting cardiac decompensation. 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 She also had a glucose of greater than 500. She is insulin-dependent diabetic and has been admitted in this hospital before for DKA. Hospital Course Hospital Course: Patient was admitted with acute onset shortness of breathI was found to be hypoxemic with oxygen saturation in the 70s. She was initially placed on BiPAP. He was found to have mild pulmonary edema. Patient was also found to be hypoglycemic with a glucose greater than 500. She was started on intravenous Lasix and echocardiogram was done which revealed a left ventricular thrombus. Patient has been on Lovenox bridge as well as Coumadin with the Lovenox to be discontinued once her Coumadin is therapeutic. She will follow up with cardiology regarding further treatment of her left ventricular thrombus. A stress test was done which did not reveal any acute findings although revealed evidence of scar involving the left ventricular apex and apical inferior wall and severely reduced left ventricular ejection fraction consistent with mixed ischemic and dilated cardiomyopathy. Ejection fraction is less than 25% and this should be addressed to follow-up with Dr. Terry She was also been treated for osteomyelitis prior to admission and infection was in the senior living for completion of antibiotics on October 12. She was admitted to the hospital in the interim and although she had a brief period of her PICC line been inadvertently removed this has been replaced and she has had continuous antibiotic treatment. A superficial wound swab of the right foot however revealed a Pseudomonas infection and patient's antibiotic was changed to cefepime however on discussion with Dr. Gonsalez infectious disease today she suggest that this is likely contaminant and there is no need to change therapy. She recommends that patient should continue treatment at this previously planned with the ceftriaxone IV till October 12. Patient will be switched back to ceftriaxone that she was on previously. Wound dressing is been done with a dry to wet dressing. Monitor PT and INR and adjust to goal of 2.5. Her blood sugars have improved and further adjustment of hypoglycemic agents should be done as necessary. Physical Exam Vital Signs: Temp Pulse Resp BP Pulse Ox 98.6 F 78 18 113/68 95 09/24/17 12:02 09/24/17 12:02 09/24/17 12:02 09/24/17 12:02 09/24/17 12:02 Intake & Output 09/23/17 09/24/17 09/25/17 06:59 06:59 06:59 Intake Total 1075 1240 Balance 1075 1240 Weight 99.4 kg 99.7 kg General appearance: PRESENT: no acute distress, well-developed, well-nourished Head exam: PRESENT: atraumatic, normocephalic Eye exam: PRESENT: conjunctiva pink, EOMI, PERRLA. ABSENT: scleral icterus Ear exam: PRESENT: normal external ear exam Mouth exam: PRESENT: moist, tongue midline Neck exam: ABSENT: carotid bruit, JVD, lymphadenopathy, thyromegaly Respiratory exam: PRESENT: clear to auscultation rodrigue. ABSENT: rales, rhonchi, wheezes Cardiovascular exam: PRESENT: RRR. ABSENT: diastolic murmur, rubs, systolic murmur Pulses: PRESENT: normal dorsalis pedis pul Vascular exam: PRESENT: normal capillary refill GI/Abdominal exam: PRESENT: normal bowel sounds, soft. ABSENT: distended, guarding, mass, organolmegaly, rebound, tenderness Rectal exam: PRESENT: deferred Extremities exam: PRESENT: full ROM, other - Right foot with the first and second toe and the skin around the dorsum of the foot appears to be healing with minimal discharge. ABSENT: calf tenderness, clubbing, pedal edema Neurological exam: PRESENT: alert, awake, oriented to person, oriented to place , oriented to time, oriented to situation, CN II-XII grossly intact. ABSENT: motor sensory deficit Psychiatric exam: PRESENT: appropriate affect, normal mood. ABSENT: homicidal ideation, suicidal ideation Skin exam: PRESENT: dry, intact, warm. ABSENT: cyanosis, rash Results Laboratory Results: 09/24/17 05:40 09/20/17 04:15 09/24/17 09/24/17 05:40 12:40 WBC 5.9 RBC 4.55 Hgb 11.8 L Hct 36.7 MCV 81 MCH 26.0 L MCHC 32.2 RDW 17.6 H Plt Count 203 Urine Color YELLOW Urine Appearance CLEAR Urine pH 6.0 Ur Specific [place] 1.020 Urine Protein >=500 H Urine Glucose (UA) >=500 H Urine Ketones NEGATIVE Urine Blood SMALL H Urine Nitrite NEGATIVE Ur Leukocyte Esterase NEGATIVE Urine WBC (Auto) 1 Urine RBC (Auto) 2 09/18/17 09/18/17 09/18/17 06:05 16:20 22:15 Troponin I 3.630 3.140 NT-Pro-B Natriuret Pep 8390 H 09/19/17 09/20/17 09/20/17 04:15 04:15 04:15 Troponin I 2.140 NT-Pro-B Natriuret Pep 8900 H 5300 H Impressions: Interventional Vascular Procedure 09/17/17 00:00 IMPRESSION: SUCCESSFUL PLACEMENT OF A 5 FR DUAL LUMEN 38 CM PICC IN THE RIGHT BASILIC VEIN. PICC Line Insertion 09/17/17 00:00 IMPRESSION: SUCCESSFUL PLACEMENT OF A 5 FR DUAL LUMEN 38 CM PICC IN THE RIGHT BASILIC VEIN. Chest/Abdomen CTA 09/17/17 05:02 IMPRESSION: 1. There is no evidence of pulmonary emboli. 2. Ground-glass infiltrates in both lungs. Nonspecific finding. Likely chronic interstitial change versus interstitial edema. 3. Small pleural effusions. 4. Coronary atherosclerosis. Chest X-Ray 09/18/17 00:00 IMPRESSION: Decrease in alveolar and interstitial edema pattern compared to yesterday. Improved aeration at the left lower lobe compared to yesterday Venous Doppler Study 09/21/17 00:00 IMPRESSION: NO EVIDENCE DVT OR SVT IN EITHER LEG. Qualifiers - * PATIENT BEING DISCHARGED WITH ANY OF THE FOLLOWING DIAGNOSIS: No Plan Time Spent: Greater than 30 Minutes
== END 2017-09-24 16:50 | DRG 189 ==
LOC: ER 03:46 → EH 08:29 → 3S 14:51
PROVIDERS: ADMIT Family Medicine; ATTEND Family Medicine
PROC: 5A09357 Assistance with Respiratory Ventilation, Less than 24 Consecutive Hours, Continuous Positive Airway Pressure (ICD-10-PCS; principal; 2017-09-17)
PROC: 02HV33Z Insertion of Infusion Device into Superior Vena Cava, Percutaneous Approach (ICD-10-PCS; 2017-09-17)
PROC: B5181ZA Fluoroscopy of Superior Vena Cava using Low Osmolar Contrast, Guidance (ICD-10-PCS; 2017-09-17)
PROC: B548ZZA Ultrasonography of Superior Vena Cava, Guidance (ICD-10-PCS; 2017-09-17)
DX: J96.01 Acute respiratory failure with hypoxia (principal); I50.43 Acute on chronic combined systolic (congestive) and diastolic (congestive) heart failure; I42.9 Cardiomyopathy, unspecified; I24.0 Acute coronary thrombosis not resulting in myocardial infarction; E87.0 Hyperosmolality and hypernatremia; M86.9 Osteomyelitis, unspecified; I11.0 Hypertensive heart disease with heart failure; E11.69 Type 2 diabetes mellitus with other specified complication; B95.61 Methicillin susceptible Staphylococcus aureus infection as the cause of diseases classified elsewhere; B95.1 Streptococcus, group B, as the cause of diseases classified elsewhere; E11.65 Type 2 diabetes mellitus with hyperglycemia; L08.9 Local infection of the skin and subcutaneous tissue, unspecified; F32.9 Major depressive disorder, single episode, unspecified; G89.29 Other chronic pain; E78.5 Hyperlipidemia, unspecified; Z79.4 Long term (current) use of insulin; Z79.899 Other long term (current) drug therapy
CPT/HCPCS: 36415; 36569; 71045; 71275; 76937; 78452; 80048; 80053; 80061; 81001; 82550; 82553; 82803; 82962; 83880; 84484; 85025; 85027; 85379; 85610; 87040; 87070; 87077; 87186; 87205; 93005; 93010; 93017; 93306; 93970; 94640; 94660; 96374; 96375; 96376; 99285; A9500; J0692; J0696; J1642; J1650; J1815; J1940; J2785; J2930; J3475; J3490; J7620; Q9969

== ENCOUNTER → 2017-10-04 | Outpatient (CLI) | payer MEDICARE, MEDICAID ==
[2017-10-04 13:59] LABS: ALANINE AMINOTRANSFERASE 27 U/L (9-52); ALBUMIN 2.7 g/dL (3.5-5.0); ALKALINE PHOSPHATASE 88 U/L (38-126); ANION GAP 7 (5-19); ASPARTATE AMINO TRANSFERASE 22 U/L (14-36); BILIRUBIN,DIRECT 0.4 mg/dL (0.0-0.4); BILIRUBIN,TOTAL 0.4 mg/dL (0.2-1.3); BLOOD UREA NITROGEN 20 mg/dL (7-20); CALCIUM 8.5 mg/dL (8.4-10.2); CARBON DIOXIDE 28 mmol/L (22-30); CHLORIDE 106 mmol/L (98-107); CHOLESTEROL 135.04 mg/dL (0-200); GLUCOSE 317 mg/dL (75-110); SODIUM 141.1 mmol/L (137-145); TOTAL PROTEIN 5.7 g/dL (6.3-8.2); TRIGLYCERIDES 218 mg/dL (<150)
[2017-10-04 14:09] LABS: DIRECT LDL 73 mg/dL (<100)
[2017-10-04 14:10] LABS: VLDL CHOLESTEROL 43.6 mg/dL (10-31)
== END ==
LOC: PNR 12:24
PROVIDERS: ATTEND Family Medicine
DX: E11.9 Type 2 diabetes mellitus without complications (principal); E78.5 Hyperlipidemia, unspecified; I50.40 Unspecified combined systolic (congestive) and diastolic (congestive) heart failure
CPT/HCPCS: 80053; 80061; 83036

== ENCOUNTER → 2017-12-06 | Outpatient (CLI) | payer MEDICARE, MEDICAID ==
[2017-12-06 11:38] LABS: ABSOLUTE EOSINOPHILS # (AUTO) 0.3 10^3/uL (0.0-0.6); ABSOLUTE LYMPHOCYTES (AUTO) 2.3 10^3/uL (0.5-4.7); ABSOLUTE MONOCYTES (AUTO) 0.5 10^3/uL (0.1-1.4); ABSOLUTE NEUT (AUTO) 2.8 10^3/uL (1.7-8.2); BASOPHILS % (AUTO) 0.4 % (0-2); EOSINOPHILS % (AUTO) 4.5 % (0-6); HEMATOCRIT 45.5 % (36.0-47.0); HEMOGLOBIN 14.8 g/dL (12.0-15.5); LYMPHOCYTES % (AUTO) 39.7 % (13-45); MEAN CORPUSCULAR HEMOGLOBIN 25.3 pg (27.0-33.4); MEAN CORPUSCULAR HGB CONC 32.4 g/dL (32.0-36.0); MEAN CORPUSCULAR VOLUME 78 fl (80-97); MONOCYTES % (AUTO) 7.8 % (3-13); PLATELET COUNT 180 10^3/uL (150-450); RED BLOOD COUNT 5.82 10^6/uL (3.72-5.28); RED CELL DISTRIBUTION WIDTH 18.8 % (11.5-14.0); SEGMENTED NEUTROPHILS % (AUTO) 47.6 % (42-78); TOTAL CELLS COUNTED % (AUTO) 100 %; WHITE BLOOD COUNT 5.9 10^3/uL (4.0-10.5)
[2017-12-06 12:16] LABS: ERYTHROCYTE SEDIMENTATION RATE 35 mm/hr (0-30)
[2017-12-06 12:20] LABS: ALANINE AMINOTRANSFERASE 31 U/L (9-52); ALBUMIN 3.7 g/dL (3.5-5.0); ALKALINE PHOSPHATASE 82 U/L (38-126); ANION GAP 9 (5-19); ASPARTATE AMINO TRANSFERASE 29 U/L (14-36); BILIRUBIN,DIRECT 0.3 mg/dL (0.0-0.4); BILIRUBIN,TOTAL 0.6 mg/dL (0.2-1.3); BLOOD UREA NITROGEN 19 mg/dL (7-20); C-REACTIVE PROTEIN 5.9 mg/L (<10.0); CALCIUM 9.7 mg/dL (8.4-10.2); CARBON DIOXIDE 27 mmol/L (22-30); CHLORIDE 105 mmol/L (98-107); GLUCOSE 296 mg/dL (75-110); POTASSIUM 4.5 mmol/L (3.6-5.0); SODIUM 140.8 mmol/L (137-145)
--- NOTE | 2017-12-06 12:29 | RADIOLOGY REPORT (SQ) ---
EXAM DESCRIPTION: FOOT RIGHT COMPLETE COMPLETED DATE/TIME: 12/06/2017 11:34 am REASON FOR STUDY: NON-PRS CHRONIC ULCER OTH PRT RIGHT FOOT W FAT LAYER EXPOSED E11.621 TYPE 2 DIABE MASON MELLITUS WITH FOOT ULCER L97.512 NON-PRS CHRONIC ULCER OTH PRT RIGHT FOOT W FAT LAYER COMPARISON: 08/25/2017 NUMBER OF VIEWS: Three views. TECHNIQUE: AP, lateral and oblique radiographic images acquired of the right foot. LIMITATIONS: None. FINDINGS: MINERALIZATION: Normal. BONES: No fracture or dislocation. No evidence of osteomyelitis. JOINTS: No effusions. SOFT TISSUES: There is soft tissue swelling in the forefoot around the 1st metatarsal-phalangeal join t. There is hallux valgus. There are soft tissue calcifications in the 1st metatarsal-phalangeal sky int. A linear radiopaque foreign body is seen in the plantar aspect of the 4th metatarsal-phalangeal joint. OTHER: No other significant finding. IMPRESSION: No acute osseous abnormality. Soft tissue swelling. Foreign body is once again seen. TECHNICAL DOCUMENTATION: JOB ID: [id number] [employer]- All Rights Reserved Reading location - IP/workstation name: [email or web address]
== END ==
LOC: WC 11:03
PROVIDERS: ATTEND Preventive Medicine Undersea and Hyperbaric Medicine
DX: E11.621 Type 2 diabetes mellitus with foot ulcer (principal); L97.512 Non-pressure chronic ulcer of other part of right foot with fat layer exposed
CPT/HCPCS: 36415; 80053; 83036; 85025; 85652; 86140

== ENCOUNTER → 2017-12-10 | Outpatient (CLI) | payer MEDICARE, MEDICAID ==
--- NOTE | 2017-12-10 17:56 | XCELERA REPORT ---
[address] [address] Lower Extremity Arterial Evaluation Name: EDUARDA JARRELL Age: 67 yrs Gender: Female : 1950 Patient Status: Outpatient Patient Location: Study Date: 12/10/2017 02:04 PM Procedure: A color flow and duplex scan of the lower extremity arteries was performed bilaterally with velocity and waveform anaylsis. Ankle brachial indicies performed. Reason For Study: ULCER RT FOOT Ordering Physician: POLINA CASTRO Performed By: Itz Trotter Measurements and Calculations Right Left SECOND RIGGER PSV 133.6 90.4 cm/sec Prox PFA PSV -68.8 64.2 cm/sec Prox SFA PSV 113.1 97.6 cm/sec Mid SFA PSV -111.3 -106.2cm/sec Dist SFA PSV -101.2 -98.7 cm/sec Prox Pop A PSV 77.1 78.1 cm/sec Dist FRANCISCO PSV 95.3 74.3 cm/sec Dist BANQUET ATTENDANT PSV 48.1 34.8 cm/sec Logan Pedis PSV 97.3 104.6 cm/sec Right Side Arterial Evaluation Normal velocity and triphasic waveforms noted from the Common Femoral artery to the infrageniculate vessels. 0 % stenosis. Ankle Brachial index is 1.06. Left Side Arterial Evaluation Normal velocity and triphasic waveforms noted from the Common Femoral artery to the infrageniculate vessels. 0 % stenosis. Ankle Brachial index is 1.13. Interpretation Summary No hemodynamically significant lesions in the bilateral lower extremities, on duplex imaging, at rest. : POLINA CASTRO > Kenny Butt
== END ==
LOC: SP 13:26
PROVIDERS: ATTEND Preventive Medicine Undersea and Hyperbaric Medicine
DX: L97.512 Non-pressure chronic ulcer of other part of right foot with fat layer exposed (principal)
CPT/HCPCS: 93922; 93925

== ENCOUNTER 2018-02-08 15:24 | Emergency (ER) | payer MEDICARE, MEDICAID ==
--- NOTE | 2018-02-08 18:13 | ER Document Report ---
ED General - General Chief Complaint: Fall Stated Complaint: FALL Mode of Arrival: Ambulatory Information source: Patient, [facility] Records Notes: 67-year-old female with hypertension, hyperlipidemia, diabetes presents with complaints of head and neck pain. Patient states that 2 days prior to arrival she had a trip and fall in her laundry room landing on her right side striking her head and and bending her neck. She states that she was able to get up independently and has been taking Tylenol for pain but now is having problems turning her head to the right. Patient denies any preceding chest pain, shortness of breath. She denies any blood thinning medications. She denies loss of consciousness. Patient states that she has been undergoing wound care for a diabetic ulcer and often has bulky bandages that cause her to be unstable. She does walk normally with a walker and a cane. She did drive herself to the emergency department. TRAVEL OUTSIDE OF THE [place] IN LAST 30 DAYS: No - HPI Onset: Other Onset/Duration: Gradual, Persistent Quality of pain: Achy, Throbbing Severity: Moderate Associated symptoms: Headache, Other - Neck pain. denies: Chest pain, Shortness of breath Exacerbated by: Movement Relieved by: Denies Similar symptoms previously: No Recently seen / treated by doctor: Yes - Related Data Allergies/Adverse Reactions: No Known Allergies Allergy (Verified 08/25/17 15:23) Past Medical History - General Information source: Patient, [facility] Records - Social History Smoking Status: Never Smoker Chew tobacco use (# tins/day): No Frequency of alcohol use: None Drug Abuse: None Lives with: Family Family History: Reviewed & Not Pertinent, DM Patient has suicidal ideation: No Patient has homicidal ideation: No - Past Medical History Cardiac Medical History: Reports: Hx Hypercholesterolemia, Hx Hypertension Pulmonary Medical History: Reports: Hx Asthma Denies: Hx Tuberculosis Endocrine Medical History: Reports: Hx Diabetes Mellitus Type 1, Hx Diabetes Mellitus Type 2 Renal/ Medical History: Denies: Hx Peritoneal Dialysis Psychiatric Medical History: Reports: Hx Depression Past Surgical History: Reports: Hx Appendectomy, Hx Section - x2, Hx Orthopedic Surgery - toe - Immunizations Hx Diphtheria, Pertussis, Tetanus Vaccination: Yes - 2011 Hx Pneumococcal Vaccination: 12/17/10 Review of Systems - Review of Systems Notes: REVIEW OF SYSTEMS: CONSTITUTIONAL : Denies fever, chills, or sweats. Denies recent illness. Denies weight loss, recent hospitalizations. EENT: Denies visual changes, eye pain. Denies sore throat, oral lesions, difficulty swallowing. CARDIOVASCULAR: Denies chest pain. Denies palpitations. Denies lower extremity edema. RESPIRATORY: Denies cough. Denies shortness of breath, wheezing. GASTROINTESTINAL: Denies abdominal pain or distention. Denies nausea, vomiting , or diarrhea. Denies blood in vomitus, stools, or per rectum. Denies black, tarry stools. Denies constipation. GENITOURINARY: Denies difficulty urinating, painful urination, frequency, blood in urine, or vaginal discharge. MUSCULOSKELETAL: Denies back stiffness. Denies joint pain or swelling. SKIN: Denies rash. HEMATOLOGIC : Denies easy bruising or bleeding. LYMPHATIC: Denies swollen glands. NEUROLOGICAL: Denies confusion or altered mental status. Denies loss of consciousness. Denies dizziness or lightheadedness. Denies weakness or paralysis. Denies problems difficulty with ambulation, slurred speech. Denies sensory loss, numbness, or tingling. Denies seizures. PSYCHIATRIC: Denies anxiety or stress. Denies depression, suicidal ideation, or homicidal ideation. Denies visual or auditory hallucinations. Physical Exam - Vital signs Vitals: Temp Pulse Resp BP Pulse Ox 98.1 F 80 20 151/66 H 94 02/08/18 16:03 02/08/18 16:03 02/08/18 16:03 02/08/18 16:03 02/08/18 16:03 - Notes Notes: PHYSICAL EXAMINATION: GENERAL: Well-appearing, well-nourished and in no acute distress. C collar in place. On backboard. GCS 15 HEAD: Atraumatic, normocephalic. EYES: Pupils equal round and reactive to light, extraocular movements intact, sclera anicteric, conjunctiva are normal. ENT: Nares patent, oropharynx clear without exudates. Moist mucous membranes. No hemanotympanum . No blood in nares. No dental fracture NECK: Decreased range of motion with rotation to the right and flexion. Midline tenderness of the cervical spine. Increased muscle tonicity along the right paraspinal musculature of the cervical spine. Supple without lymphadenopathy. Trachea midline. LUNGS: Breath sounds clear to auscultation bilaterally and equal. No wheezes rales or rhonchi. HEART: Regular rate and rhythm without murmurs. Pulses intact all throughout. ABDOMEN: Soft, nontender, nondistended abdomen. No guarding, no rebound. No masses appreciated. Musculoskeletal: Normal range of motion, no pitting or edema. No cyanosis. Hip non tender, stable. NEUROLOGICAL: Cranial nerves grossly intact. Normal speech, normal gait. Normal sensory, motor, and reflex exams. PSYCH: Normal mood, normal affect. SKIN: Warm, No active bleeding Course - Re-evaluation Re-evalutation: Cervical Spine CT 02/08/18 00:00 IMPRESSION: Degenerative disc disease, spondylosis, and facet arthropathy. No acute findings. Head CT 02/08/18 00:00 IMPRESSION: NORMAL BRAIN CT WITHOUT CONTRAST. EVIDENCE OF ACUTE STROKE: NO. 02/08/18 19:34 Presentation of a well appearing elderly patient in no acute distress, vitals within normal limits after a mechanical fall. Patient denies a syncopal episode as the cause for today's fall. No focal neurologic deficits on exam, no evidence of basilar skull fracture on exam without evidence of hemotympanum, raccoon eyes, or periauricular hematoma. No papilledema. Patient is not on anticoagulation. GCS is 15. No loss of consciousness. No episodes of vomiting. However, based on patient's age a CT of the head has been obtained which is negative for any acute intracranial bleed. Likewise, patient was unable to be clinically cleared due to age by [place] cervical spine criteria. A CT of the cervical spine was also obtained and likewise is negative for any acute fracture. Did show degenerative disc disease, spondylosis and facet arthropathy. Patient has no focal deformities or limited range of motion in any joint space. Chest and abdominal exam are benign without any focal tenderness, shortness of breath, or bruising over the chest or abdominal wall. Patient has no flank tenderness. There is no obvious findings on trauma exam today and therefore no further imaging or evaluation will be obtained at this time. At this time will discharge with return precautions and follow-up recommendations. Verbal discharge instructions given a the bedside and opportunity for questions given. Medication warnings reviewed. Patient is in agreement with this plan and has verbalized understanding of return precautions and the need for primary care follow-up in the next 24-72 hours. - Vital Signs Vital signs: Temp Pulse Resp BP Pulse Ox 98.1 F 80 20 151/66 H 94 11/23/18 16:03 02/08/18 16:03 02/08/18 16:03 02/08/18 16:03 02/08/18 16:03 - Diagnostic Test Radiology reviewed: Image reviewed, Reports reviewed Discharge - Discharge Clinical Impression: Degenerative disc disease, cervical Fall Qualifiers: Encounter type: initial encounter Qualified Code(s): W19.XXXA - Unspecified fall, initial encounter Hypertension Qualifiers: Hypertension type: unspecified Qualified Code(s): I10 - Essential (primary) hypertension Headache Qualifiers: Headache type: unspecified Headache chronicity pattern: acute headache Intractability: not intractable Qualified Code(s): R51 - Headache Cervical strain Qualifiers: Encounter type: initial encounter Qualified Code(s): S16.1XXA - Strain of muscle, fascia and tendon at neck level, initial encounter Condition: Good Disposition: HOME, SELF-CARE Instructions: Headache ([facility]), Neck Injury (Cervical Strain) ([facility]) Additional Instructions: You have been seen in the Emergency Department (ED) today following a fall. Your workup today did not reveal any injuries that require you to stay in the hospital. You can expect, though, to be stiff and sore for the next several days. You can take Tylenol 1000 mg every 6 hours as needed for pain. You can apply a hot pack or electric heating pad to the sore areas. You can also use topical "Aspercreme with lidocaine" to sore areas as needed. Please follow up with your primary care doctor as soon as possible regarding today's ED visit and your recent fall. Call your doctor or return to the ED if you develop a sudden or severe headache , confusion, slurred speech, facial droop, weakness or numbness in any arm or leg, extreme fatigue, vomiting more than two times, severe abdominal pain, or other symptoms that concern you. Prescriptions: Acetaminophen with Codeine [Tylenol #3 Tablet] 1 each PO Q4HP PRN #12 tablet PRN Reason: Lidocaine [Lidocaine Pain Relief] 1 each TP DAILY #7 adh..patch Forms: Elevated Blood Pressure Referrals: POLINA CASTRO DPM [Primary Care Provider] - Follow up as needed
--- NOTE | 2018-02-08 18:42 | RADIOLOGY REPORT (SQ) ---
EXAM DESCRIPTION: CT HEAD WITHOUT COMPLETED DATE/TIME: 02/08/2018 6:29 pm REASON FOR STUDY: fall COMPARISON: 02/22/2017 TECHNIQUE: Axial images acquired through the brain without intravenous contrast. Images reviewed wi th bone, brain and subdural windows. Additional sagittal and coronal reconstructions were generated. Images stored on PACS. All CT scanners at this facility use dose modulation, iterative reconstruction, and/or weight based d osing when appropriate to reduce radiation dose to as low as reasonably achievable (ALARA). [facility]: Dose Right [facility]: CareDose [facility]: Dose Right [facility]: Teradose 4D [facility]: Smart [employer] RADIATION DOSE: CT Rad equipment meets quality standard of care and radiation dose reduction techniq ues were employed. CTDIvol: 48.6 mGy. DLP: 902 mGy-cm. mGy. LIMITATIONS: None. FINDINGS: VENTRICLES: Normal size and contour. CEREBRUM: No masses. No hemorrhage. No midline shift. No evidence for acute infarction. Normal gra y/white matter differentiation. No areas of low density in the white matter. CEREBELLUM: No masses. No hemorrhage. No alteration of density. No evidence for acute infarction. EXTRAAXIAL SPACES: No fluid collections. No masses. ORBITS AND GLOBE: No intra- or extraconal masses. Normal contour of globe without masses. CALVARIUM: No fracture. PARANASAL SINUSES: No fluid or mucosal thickening. SOFT TISSUES: No mass or hematoma. OTHER: No other significant finding. IMPRESSION: NORMAL BRAIN CT WITHOUT CONTRAST. EVIDENCE OF ACUTE STROKE: NO. COMMENT: Quality ID # [id number]: Final reports with documentation of one or more dose reduction techniques (e.g., Automated exposure control, adjustment of the mA and/or kV according to patient size, use of iterative reconstruction technique) TECHNICAL DOCUMENTATION: JOB ID: [id number] [employer]- All Rights Reserved Reading location - IP/workstation name: [email or web address]
[2018-02-08] MEDS ORDERED: MORPHINE SULFATE 10 MG/ML INJ IM ONE (18:43)
[2018-02-08] MEDS ORDERED: DIAZEPAM 5 MG TABLET PO ONE (18:43)
--- NOTE | 2018-02-08 18:46 | RADIOLOGY REPORT (SQ) ---
EXAM DESCRIPTION: CT CERVICAL SPINE WITHOUT COMPLETED DATE/TIME: 02/08/2018 6:29 pm REASON FOR STUDY: fall COMPARISON: None. TECHNIQUE: Axial images acquired through the cervical spine without intravenous contrast. Images re viewed with lung, soft tissue and bone windows. Reconstructed coronal and sagittal MPR images review ed. Images stored on PACS. All CT scanners at this facility use dose modulation, iterative reconstruction, and/or weight based d osing when appropriate to reduce radiation dose to as low as reasonably achievable (ALARA). [facility]: Dose Right [facility]: CareDose [facility]: Dose Right [facility]: Teradose 4D [facility]: Smart [employer] RADIATION DOSE: CT Rad equipment meets quality standard of care and radiation dose reduction techniq ues were employed. CTDIvol: 23.5 mGy. DLP: 620 mGy-cm. mGy. LIMITATIONS: None. FINDINGS: ALIGNMENT: Anatomic. MINERALIZATION: Normal. VERTEBRAL BODIES: No fractures or dislocation. DISCS: The disc space is narrowed at C5-6 with anterior and posterior osteophytes. FACETS, LATERAL MASSES, POSTERIOR ELEMENTS: Mild hypertrophic facet changes in the upper cervical spi ne on the right more than left. HARDWARE: None in the spine. VISUALIZED RIBS: No fractures. LUNG APICES AND SOFT TISSUES: No significant or acute findings. OTHER: No other significant finding. IMPRESSION: Degenerative disc disease, spondylosis, and facet arthropathy. No acute findings. TECHNICAL DOCUMENTATION: JOB ID: [id number] Quality ID # [id number]: Final reports with documentation of one or more dose reduction techniques (e.g., Au tomated exposure control, adjustment of the mA and/or kV according to patient size, use of iterative reconstruction technique) 2010 [employer]- All Rights Reserved Reading location - IP/workstation name: [email or web address]
[2018-02-08] MEDS ORDERED: LIDOCAINE 5% (700 MG) TRANSDERMAL ADH..PATCH TP ONE (19:13)
[2018-02-08 20:02] VITALS: BP 133/69
== END 2018-02-08 20:04 | disposition home or self-care (01) ==
LOC: ER 15:24
DX: S16.1XXA Strain of muscle, fascia and tendon at neck level, initial encounter (principal); M50.30 Other cervical disc degeneration, unspecified cervical region; I10 Essential (primary) hypertension; M54.2 Cervicalgia; R51 Headache; W19.XXXA Unspecified fall, initial encounter; Y92.008 Other place in unspecified non-institutional (private) residence as the place of occurrence of the external cause; E11.9 Type 2 diabetes mellitus without complications; J45.909 Unspecified asthma, uncomplicated; E78.5 Hyperlipidemia, unspecified
CPT/HCPCS: 99284; 96372; 70450; 72125; A9270; J2270

== ENCOUNTER 2018-03-19 21:35 | Emergency (ER) | payer MEDICARE, MEDICAID ==
--- NOTE | 2018-03-19 23:48 | ER Document Report ---
ED Medical Screen (RME) - General Chief Complaint: Back Pain Stated Complaint: BACK PAIN,HEADACHE,ABDOMINAL PAIN Time Seen by Provider: 03/19/18 23:46 Notes: Patient is a 67-year-old female who presents to the emergency department with a chief complaint of back pain. She states that she has back pain all the time, and has a staggered gait normally. She states that her pain has gotten progressively worse over the past 2 days. She also complains of abdominal pain and flank pain. She states she feels like she has a head cold. She does state she has some nausea, no vomiting, no diarrhea. TRAVEL OUTSIDE OF THE [place] IN LAST 30 DAYS: No - Related Data Allergies/Adverse Reactions: No Known Allergies Allergy (Verified 08/25/17 15:23) Past Medical History - Past Medical History Cardiac Medical History: Reports: Hx Hypercholesterolemia, Hx Hypertension Pulmonary Medical History: Reports: Hx Asthma Denies: Hx Tuberculosis Endocrine Medical History: Reports: Hx Diabetes Mellitus Type 1, Hx Diabetes Mellitus Type 2 Renal/ Medical History: Denies: Hx Peritoneal Dialysis Psychiatric Medical History: Reports: Hx Depression Past Surgical History: Reports: Hx Appendectomy, Hx Section - x2, Hx Orthopedic Surgery - toe - Immunizations Hx Diphtheria, Pertussis, Tetanus Vaccination: Yes - 2011 History of Influenza Vaccine for 12/2016 - 05/2017 Season: Yes Influenza Administration Date for 12/2016 - 05/2017 Season: 01/30/17 Physical Exam - Vital signs Vitals: Temp Pulse Resp BP Pulse Ox 97.8 F 82 16 130/65 H 97 03/19/18 22:24 03/19/18 22:24 03/19/18 22:24 03/19/18 22:24 03/19/18 22:24 - Back Back: Tender - Lower back Course - Vital Signs Vital signs: Temp Pulse Resp BP Pulse Ox 97.8 F 82 16 130/65 H 97 03/19/18 22:24 03/19/18 22:24 03/19/18 22:24 03/19/18 22:24 03/19/18 22:24 - Laboratory Laboratory results interpreted by me: 03/19/18 23:58 Urine Protein >=500 H Urine Glucose (UA) >=500 H Urine Ketones TRACE H Urine Nitrite POSITIVE H Ur Leukocyte Esterase TRACE H Doctor's Discharge - Discharge Referrals: POLINA CASTRO DPM [Primary Care Provider] - Follow up as needed
[2018-03-19] MEDS ORDERED: ONDANSETRON HCL INJ/PF 4 MG/2 ML SDV IV ONE (23:52)
[2018-03-20 00:08] LABS: APPEARANCE,URINE SLIGHTLY-CLOUDY; BILIRUBIN,URINE NEGATIVE (NEGATIVE); COLOR,URINE YELLOW; GLUCOSE, URINE >=500 mg/dL (NEGATIVE); KETONES,URINE TRACE mg/dL (NEGATIVE); LEUKOCYTE ESTERASE,URINE TRACE (NEGATIVE); NITRITE,URINE POSITIVE (NEGATIVE); PROTEIN,URINE >=500 mg/dL (NEGATIVE); URINE SPECIFIC GRAVITY 1.027; UROBILINOGEN,URINE NEGATIVE mg/dL (<2.0)
--- NOTE | 2018-03-20 01:41 | ER Document Report ---
ED General Pain - General Information source: Patient TRAVEL OUTSIDE OF THE [place] IN LAST 30 DAYS: No - HPI Onset: Yesterday Onset/Duration: Gradual Quality of pain: Achy, Cramping Severity: Moderate Pain Level: 2 Context: Chronic problem Typical of prior episodes of painful crisis: Yes Associated symptoms: None Exacerbated by: Movement Relieved by: Denies Similar symptoms previously: Yes Recently seen / treated by doctor: No - General Chief Complaint: Back Pain Stated Complaint: BACK PAIN,HEADACHE,ABDOMINAL PAIN Time Seen by Provider: 03/20/18 01:41 Notes: Patient is a 67-year-old female with multiple chronic health conditions including CHF, diabetes, and chronic back pain who presents with sudden onset low abdominal pain 2 days ago that now radiates to the back. Patient states symptoms are similar but worse than normal, is an aching and cramping sensation, denies known fevers or chills, no chest pain or shortness of breath, no dysuria or hematuria. Patient is unsure of her medications and does not know how much insulin she uses for her diabetes, she also is unsure of what her glucometer readings typically show. (CARLOS GUERRERO) - Related Data Allergies/Adverse Reactions: No Known Allergies Allergy (Verified 08/25/17 15:23) Past Medical History - General Information source: Patient - Social History Smoking Status: Former Smoker Chew tobacco use (# tins/day): No Frequency of alcohol use: Occasional Drug Abuse: None Lives with: Family Family History: Reviewed & Not Pertinent, DM - Past Medical History Cardiac Medical History: Reports: Hx Hypercholesterolemia, Hx Hypertension Pulmonary Medical History: Reports: Hx Asthma Denies: Hx Tuberculosis EENT Medical History: Reports: None Neurological Medical History: Reports: None Endocrine Medical History: Reports: Hx Diabetes Mellitus Type 1, Hx Diabetes Mellitus Type 2 Renal/ Medical History: Reports: None. Denies: Hx Peritoneal Dialysis Malignancy Medical History: Reports: None GI Medical History: Reports: None Musculoskeletal Medical History: Reports None Skin Medical History: Reports None Psychiatric Medical History: Reports: Hx Depression Traumatic Medical History: Reports: None Infectious Medical History: Reports: None Past Surgical History: Reports: Hx Appendectomy, Hx Section - x2, Hx Orthopedic Surgery - toe - Immunizations Immunizations up to date: Yes Hx Diphtheria, Pertussis, Tetanus Vaccination: Yes - 2011 History of Influenza Vaccine for 12/2016 - 05/2017 Season: Yes Hx Pneumococcal Vaccination: 12/17/10 Review of Systems - Review of Systems Constitutional: No symptoms reported EENT: No symptoms reported Cardiovascular: No symptoms reported Respiratory: No symptoms reported Gastrointestinal: See HPI, Abdominal pain. denies: Diarrhea, Vomiting Genitourinary: No symptoms reported Female Genitourinary: No symptoms reported Musculoskeletal: No symptoms reported Skin: No symptoms reported Hematologic/Lymphatic: No symptoms reported Neurological/Psychological: No symptoms reported -: Yes All other systems reviewed and negative Physical Exam - Vital signs Interpretation: Normal - General General appearance: Appears well, Alert - HEENT Head: Normocephalic, Atraumatic Eyes: Normal Pupils: PERRL - Respiratory Respiratory status: No respiratory distress Chest status: Nontender Breath sounds: Normal Chest palpation: Normal - Cardiovascular Rhythm: Regular Heart sounds: Normal auscultation Murmur: No - Abdominal Inspection: Normal Distension: No distension Bowel sounds: Normal Tenderness: Tender - Mild left flank and CVA tenderness, mild suprapubic tenderness. No: Guarding, Rebound Organomegaly: No organomegaly - Back Back: Normal, Nontender - Extremities General upper extremity: Normal inspection, Nontender, Normal color, Normal ROM, Normal temperature General lower extremity: Normal inspection, Nontender, Normal color, Normal ROM, Normal temperature, Normal weight bearing. No: Son's sign - Neurological Neuro grossly intact: Yes Cognition: Normal Orientation: AAOx4 [place] Coma Scale Eye Opening: Spontaneous Jr Coma Scale Verbal: Oriented Jr Coma Scale Motor: Obeys Commands [place] Coma Scale Total: 15 Speech: Normal Motor strength normal: LUE, RUE, LLE, RLE Sensory: Normal - Psychological Associated symptoms: Normal affect, Normal mood - Skin Skin Temperature: Warm Skin Moisture: Dry Skin Color: Normal - Vital signs Vitals: Temp Pulse Resp BP Pulse Ox 97.8 F 82 16 130/65 H 97 03/19/18 22:24 03/19/18 22:24 03/19/18 22:24 03/19/18 22:24 03/19/18 22:24 - Notes Notes: Well-appearing in no acute distress (CARLOS GUERRERO) - Rectal Notes: Deferred (CARLOS GUERRERO) - Genitourinary Notes: Deferred (CARLOS GUERRERO) Course - Laboratory Result Diagrams: 03/20/18 02:05 03/20/18 02:05 - Diagnostic Test Radiology reviewed: Reports reviewed - Transfer of Care Care transferred to following provider: Dr. Han - Re-evaluation Re-evalutation: 03/20/18 03:19 Clinically the patient could have UTI versus pyelonephritis versus renal stone versus colitis. Given history of diabetes, as well as blood glucose greater than 400 on chemistries, DKA is also a possibility but less likely given normal anion gap and serum bicarbonate level. Patient will be given IV fluids along with insulin. Urinalysis is positive for nitrite, patient will be given IV Levaquin. Will await CT scan and blood work. 03/20/18 04:35 CT scan is negative. Patient will be given another liter of IV fluids and will be reassessed for discharge. Signout given to Dr. Han. (CARLOS GUERRERO) - Vital Signs Vital signs: Temp Pulse Resp BP Pulse Ox 97.8 F 82 16 130/65 H 97 03/19/18 22:24 03/19/18 22:24 03/19/18 22:24 03/19/18 22:24 03/19/18 22:24 - Laboratory Laboratory results interpreted by me: 03/19/18 03/20/18 03/20/18 23:58 02:05 02:05 RDW 17.5 H Lymphocytes % 45.5 H BUN 29 H Est GFR ( Amer) 54 L Est GFR (Non-Af Amer) 45 L Glucose 432 H* Urine Protein >=500 H Urine Glucose (UA) >=500 H Urine Ketones TRACE H Urine Nitrite POSITIVE H Ur Leukocyte Esterase TRACE H - Transfer of Care Notes: 03/20/18 04:40 Plan is to repeat blood sugar after second liter of IV fluids and reassess for likely discharge. (CARLOS GUERRERO) Discharge - Discharge Clinical Impression: Hyperglycemia Urinary tract infection Qualifiers: Urinary tract infection type: acute cystitis Hematuria presence: without hematuria Qualified Code(s): N30.00 - Acute cystitis without hematuria Condition: Good Disposition: HOME, SELF-CARE Instructions: Urinary Tract Infection ([facility]), Hyperglycemia ([facility]) Additional Instructions: Please follow-up with your regular physician next week. Return to the emergency department if you experience chest pain, shortness of breath, worsening abdominal pain, or have any other concerning symptom. Prescriptions: Ciprofloxacin HCl [Cipro 500 mg Tablet] 500 mg PO BID #20 tablet Ondansetron [Zofran Odt 4 mg Tablet] 1 - 2 tab PO Q8H PRN #30 tab.rapdis PRN Reason: For Nausea/Vomiting Referrals: POLINA CASTRO DPM [Primary Care Provider] - Follow up as needed Print Language: Libyan
[2018-03-20 02:28] LABS: ABSOLUTE BASOPHILS # (AUTO) 0.1 10^3/uL (0.0-0.2); ABSOLUTE EOSINOPHILS # (AUTO) 0.2 10^3/uL (0.0-0.6); ABSOLUTE LYMPHOCYTES (AUTO) 2.9 10^3/uL (0.5-4.7); ABSOLUTE MONOCYTES (AUTO) 0.5 10^3/uL (0.1-1.4); ABSOLUTE NEUT (AUTO) 2.7 10^3/uL (1.7-8.2); BASOPHILS % (AUTO) 1.1 % (0-2); HEMATOCRIT 40.8 % (36.0-47.0); HEMOGLOBIN 13.1 g/dL (12.0-15.5); LYMPHOCYTES % (AUTO) 45.5 % (13-45); MEAN CORPUSCULAR HEMOGLOBIN 27.1 pg (27.0-33.4); MEAN CORPUSCULAR HGB CONC 32.2 g/dL (32.0-36.0); MEAN CORPUSCULAR VOLUME 84 fl (80-97); MONOCYTES % (AUTO) 7.4 % (3-13); PLATELET COUNT 174 10^3/uL (150-450); RED BLOOD COUNT 4.85 10^6/uL (3.72-5.28); RED CELL DISTRIBUTION WIDTH 17.5 % (11.5-14.0); TOTAL CELLS COUNTED % (AUTO) 100 %; WHITE BLOOD COUNT 6.4 10^3/uL (4.0-10.5)
[2018-03-20 02:37] LABS: ALANINE AMINOTRANSFERASE 30 U/L (9-52); ALBUMIN 3.8 g/dL (3.5-5.0); ALKALINE PHOSPHATASE 94 U/L (38-126); ANION GAP 9 (5-19); ASPARTATE AMINO TRANSFERASE 23 U/L (14-36); BILIRUBIN,DIRECT 0.2 mg/dL (0.0-0.4); BILIRUBIN,TOTAL 0.7 mg/dL (0.2-1.3); BLOOD UREA NITROGEN 29 mg/dL (7-20); CALCIUM 9.8 mg/dL (8.4-10.2); CARBON DIOXIDE 26 mmol/L (22-30); CHLORIDE 103 mmol/L (98-107); POTASSIUM 4.9 mmol/L (3.6-5.0); SODIUM 137.5 mmol/L (137-145); TOTAL PROTEIN 6.8 g/dL (6.3-8.2)
[2018-03-20 02:46] LABS: GLUCOSE 432 mg/dL (75-110)
[2018-03-20] MEDS ORDERED: LEVOFLOXACIN 750 MG/D5W RTU 750 MG/150 ML RTUPB IV ONE (03:14)
[2018-03-20] MEDS ORDERED: NORMAL SALINE 1000 ML 1,000 ML IV ONE ×2 (03:14→04:32)
[2018-03-20] MEDS ORDERED: INSULIN REG, HUMAN 100 UNIT/ML 3 ML VIAL (PYX) IV ONE (03:14)
--- NOTE | 2018-03-20 03:31 | RADIOLOGY REPORT (SQ) ---
CLINICAL HISTORY: abdominal/flank pain COMPARISON: None. TECHNIQUE: CT ABDOMEN PELVIS WITH IV CONTRAST on 03/19/2018 11:50 PM TALENT DEVELOPMENT CONSULTANT This exam was performed according to our departmental dose-optimization program, which includes automated exposure control, adjustment of the mA and/or kV according to patient size and/or use of iterative reconstruction technique. FINDINGS: Lower lungs are clear. Abdomen: The liver is normal in appearance. There is no biliary dilatation. Gallbladder is decompressed. The pancreas and spleen are normal in appearance. The adrenal glands and kidneys are unremarkable. Abdominal aorta is normal in course and caliber without aneurysm. There is no free air. There is no retroperitoneal adenopathy. Pelvis: There is no bowel obstruction. Urinary bladder is unremarkable. There is no free fluid. Uterus is normal in size. Appendix is not clearly seen. Skeleton: There are no acute osseous findings. No suspicious bony lesions. IMPRESSION: No acute inflammatory process. No renal or ureteral calculi.
[2018-03-20] MEDS ORDERED: KETOROLAC TROMETHAMINE INJ/PF 30 MG/1 ML SDV IV ONE (04:32)
[2018-03-20] MEDS ORDERED: INSULIN REG, HUMAN 100 UNIT/ML 3 ML VIAL (PYX) SUBCUT ONE (06:44)
[2018-03-20 07:24] VITALS: BP 123/59
== END 2018-03-20 07:24 | disposition home or self-care (01) ==
LOC: ER 21:35
DX: N30.00 Acute cystitis without hematuria (principal); E11.65 Type 2 diabetes mellitus with hyperglycemia; Z79.4 Long term (current) use of insulin; R10.30 Lower abdominal pain, unspecified; I10 Essential (primary) hypertension; J45.909 Unspecified asthma, uncomplicated; Z87.891 Personal history of nicotine dependence
CPT/HCPCS: 99284; 96375; 96365; 96366; 36415; 82962; 85025; 80053; 81001; 74177; J1885; A9270; J2405; J7030; J1956; J1815

== ENCOUNTER 2018-04-05 17:59 | Inpatient (IN) | payer MEDICARE, MEDICAID ==
[2018-04-05 18:26] LABS: ABSOLUTE EOSINOPHILS # (AUTO) 0.2 10^3/uL (0.0-0.6); ABSOLUTE LYMPHOCYTES (AUTO) 2.6 10^3/uL (0.5-4.7); ABSOLUTE MONOCYTES (AUTO) 0.6 10^3/uL (0.1-1.4); ABSOLUTE NEUT (AUTO) 3.8 10^3/uL (1.7-8.2); BASOPHILS % (AUTO) 0.4 % (0-2); EOSINOPHILS % (AUTO) 3.4 % (0-6); HEMATOCRIT 39.4 % (36.0-47.0); HEMOGLOBIN 12.5 g/dL (12.0-15.5); LYMPHOCYTES % (AUTO) 35.3 % (13-45); MEAN CORPUSCULAR HEMOGLOBIN 27.4 pg (27.0-33.4); MEAN CORPUSCULAR HGB CONC 31.8 g/dL (32.0-36.0); MEAN CORPUSCULAR VOLUME 86 fl (80-97); MONOCYTES % (AUTO) 8.8 % (3-13); PLATELET COUNT 224 10^3/uL (150-450); RED BLOOD COUNT 4.56 10^6/uL (3.72-5.28); RED CELL DISTRIBUTION WIDTH 17.9 % (11.5-14.0); SEGMENTED NEUTROPHILS % (AUTO) 52.1 % (42-78); TOTAL CELLS COUNTED % (AUTO) 100 %; WHITE BLOOD COUNT 7.3 10^3/uL (4.0-10.5)
[2018-04-05 18:36] LABS: INTERNATIONAL RATION (INR) 0.86; PARTIAL THROMBOPLASTIN TIME 23.3 SEC (23.5-35.8); PROTHROMBIN TIME 12.2 SEC (11.4-15.4)
--- NOTE | 2018-04-05 18:41 | RADIOLOGY REPORT (SQ) ---
EXAM DESCRIPTION: CHEST SINGLE VIEW COMPLETED DATE/TIME: 04/05/2018 6:32 pm REASON FOR STUDY: dyspnea COMPARISON: 02/24/2017 EXAM PARAMETERS: NUMBER OF VIEWS: One view. TECHNIQUE: Single frontal radiographic view of the chest acquired. RADIATION DOSE: NA LIMITATIONS: None. FINDINGS: LUNGS AND PLEURA: Pulmonary vascular congestion. Pulmonary edema. There is increased opa cification in the left base. The left hemidiaphragm is indistinct. MEDIASTINUM AND HILAR STRUCTURES: No masses. Contour normal. HEART AND VASCULAR STRUCTURES: Cardiomegaly. BONES: No acute findings. HARDWARE: None in the chest. OTHER: No other significant finding. IMPRESSION: Cardiomegaly with pulmonary edema. Cannot exclude a left lower lobe pneumonia. Cannot exclude a small left pleural effusion. TECHNICAL DOCUMENTATION: JOB ID: [id number] [employer]- All Rights Reserved Reading location - IP/workstation name: [email or web address]
[2018-04-05 18:43] LABS: ALANINE AMINOTRANSFERASE 19 U/L (9-52); ALBUMIN 3.9 g/dL (3.5-5.0); ALKALINE PHOSPHATASE 86 U/L (38-126); ANION GAP 6 (5-19); ASPARTATE AMINO TRANSFERASE 38 U/L (14-36); BILIRUBIN,DIRECT 0.3 mg/dL (0.0-0.4); BILIRUBIN,TOTAL 0.6 mg/dL (0.2-1.3); BLOOD UREA NITROGEN 18 mg/dL (7-20); CALCIUM 9.1 mg/dL (8.4-10.2); CARBON DIOXIDE 27 mmol/L (22-30); CHLORIDE 110 mmol/L (98-107); GLUCOSE 204 mg/dL (75-110); POTASSIUM 4.5 mmol/L (3.6-5.0); SODIUM 142.7 mmol/L (137-145); TOTAL PROTEIN 7.2 g/dL (6.3-8.2)
[2018-04-05] MEDS ORDERED: IPRATROPIUM/ALBUTEROL 0.5-2.5 MG/3 ML AMPUL NEB ONE (19:56)
[2018-04-05] MEDS ORDERED: FUROSEMIDE INJ/PF 20 MG/2 ML SDV IV ONE (19:56)
[2018-04-05 20:08] LABS: VENOUS BLOOD BASE EXCESS -0.9 mmol/L; VENOUS BLOOD HCO3 25.5 mmol/L (20-32); VENOUS BLOOD PCO2 48.5 mmHg (35-63); VENOUS BLOOD PH 7.34 (7.30-7.42)
--- NOTE | 2018-04-05 20:42 | RADIOLOGY REPORT (SQ) ---
EXAM DESCRIPTION: CT CHEST ANGIOGRAPHY WITHOUT THEN WITH IV CONTRAST COMPLETED DATE/TME: 04/05/2018 19:55 CLINICAL HISTORY: 67 years, Female, sob PROCEDURE: CLINICAL HISTORY: 67 years Female sob COMPARISON: None. TECHNIQUE: Contiguous axial images were obtained through the chest during the infusion of IV contrast. Reformatted images obtained. MIP reformatted images obtained. This exam was performed according to our department optimization program which includes automated exposure control, adjustment of the mA and/or kv according to patient size and/or use of iterative reconstruction technique. FINDINGS: There are moderate bilateral pleural effusions, right greater than left. Bilateral atelectasis and consolidation involves the lungs. There are mildly enlarged mediastinal lymph nodes. There is also mild enlargement of right axillary lymph nodes. There is scattered groundglass opacification in both lungs. No pneumothorax is seen. Heart size is mildly enlarged. No PE is seen. No evidence of aortic aneurysm. No other significant abnormality. IMPRESSION: Moderate bilateral pleural effusions with bilateral atelectasis and consolidation and mild enlargement of the mediastinal lymph nodes. Pulmonary interstitial disease. No evidence of pulmonary embolus.
--- NOTE | 2018-04-05 21:00 | ER Document Report ---
ED General - General Chief Complaint: Breathing Difficulty Stated Complaint: DIFFICULTY BREATHING Time Seen by Provider: 04/05/18 19:28 Mode of Arrival: Medic Information source: Patient, Emergency Med Personnel, [facility] Records Notes: 67-year-old female with congestive heart failure (EF 25%), diabetes, hypertension, hyperlipidemia presents with complaint of shortness of breath. Patient states that she has been short of breath for several weeks with worsening of shortness of breath over the last 2 days. Patient reports a nonproductive cough. She denies headache, fever, chills, chest pain, abdominal pain, dysuria, hematuria. 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 She states she has been compliant with her blood pressure medication and Lasix. She reports worsening shortness of breath with minimal activity. She denies any lower extremity edema. TRAVEL OUTSIDE OF THE [place] IN LAST 30 DAYS: No - HPI Onset: Other Onset/Duration: Persistent, Worse Quality of pain: No pain Severity: None Associated symptoms: Nonproductive cough, Shortness of breath. denies: Chest pain Exacerbated by: Movement, Walking, Coughing Relieved by: Denies Similar symptoms previously: Yes Recently seen / treated by doctor: No - Related Data Allergies/Adverse Reactions: No Known Allergies Allergy (Verified 08/25/17 15:23) Past Medical History - General Information source: Patient, [facility] Records - Social History Smoking Status: Never Smoker Frequency of alcohol use: None Drug Abuse: None Lives with: Family Family History: Reviewed & Not Pertinent, DM Patient has suicidal ideation: No Patient has homicidal ideation: No - Past Medical History Cardiac Medical History: Reports: Hx Hypercholesterolemia, Hx Hypertension Pulmonary Medical History: Reports: Hx Asthma Denies: Hx Tuberculosis Endocrine Medical History: Reports: Hx Diabetes Mellitus Type 1, Hx Diabetes Mellitus Type 2 Renal/ Medical History: Denies: Hx Peritoneal Dialysis Psychiatric Medical History: Reports: Hx Depression Past Surgical History: Reports: Hx Appendectomy, Hx Section - x2, Hx Orthopedic Surgery - toe - Immunizations Immunizations up to date: Yes Hx Diphtheria, Pertussis, Tetanus Vaccination: Yes - 2011 Hx Pneumococcal Vaccination: 12/17/10 Review of Systems - Review of Systems Notes: REVIEW OF SYSTEMS: CONSTITUTIONAL : Denies fever, chills, or sweats. Denies recent illness. Denies weight loss, recent hospitalizations. EENT: Denies visual changes, eye pain. Denies sore throat, oral lesions, difficulty swallowing. CARDIOVASCULAR: Denies chest pain. Denies palpitations. Denies lower extremity edema. RESPIRATORY: + Cough, shortness of breath GASTROINTESTINAL: Denies abdominal pain or distention. Denies nausea, vomiting, or diarrhea. Denies blood in vomitus, stools, or per rectum. Denies black, tarry stools. Denies constipation. GENITOURINARY: Denies difficulty urinating, painful urination, frequency, blood in urine, or vaginal discharge. MUSCULOSKELETAL: Denies back or neck pain or stiffness. Denies joint pain or swelling. SKIN: Denies rash, lesions or sores. HEMATOLOGIC : Denies easy bruising or bleeding. LYMPHATIC: Denies swollen glands. NEUROLOGICAL: Denies confusion or altered mental status. Denies loss of consciousness. Denies dizziness or lightheadedness. Denies headache. Denies weakness or paralysis. Denies problems difficulty with ambulation, slurred speech. Denies sensory loss, numbness, or tingling. Denies seizures. PSYCHIATRIC: Denies anxiety or stress. Denies depression, suicidal ideation, or homicidal ideation. Denies visual or auditory hallucinations. Physical Exam - Vital signs Vitals: Pulse Ox 93 04/05/18 18:05 - Notes Notes: PHYSICAL EXAMINATION: GENERAL: Ill-appearing, somnolent but arousable answering questions appropriately HEAD: Atraumatic, normocephalic. EYES: Pupils equal round and reactive to light, extraocular movements intact, conjunctiva are normal. ENT: Nares patent, oropharynx clear without exudates. Moist mucous membranes. NECK: Normal range of motion, supple without lymphadenopathy LUNGS: Diminished breath sounds bilaterally. HEART: Regular rate and rhythm without murmurs ABDOMEN: Soft, nontender, nondistended abdomen. No guarding, no rebound. No masses appreciated. Female : deferred Musculoskeletal: Normal range of motion, no pitting or edema. No cyanosis. NEUROLOGICAL: Cranial nerves grossly intact. Normal speech, Normal sensory, motor exams PSYCH: Normal mood, normal affect. SKIN: Warm, Dry, normal turgor, no rashes or lesions noted. Course - Re-evaluation Re-evalutation: 04/05/18 23:49 Laboratory 04/05/18 04/05/18 04/05/18 17:20 17:20 17:20 WBC 7.3 RBC 4.56 Hgb 12.5 Hct 39.4 MCV 86 MCH 27.4 MCHC 31.8 L RDW 17.9 H Plt Count 224 Seg Neutrophils % 52.1 Lymphocytes % 35.3 Monocytes % 8.8 Eosinophils % 3.4 Basophils % 0.4 Absolute Neutrophils 3.8 Absolute Lymphocytes 2.6 Absolute Monocytes 0.6 Absolute Eosinophils 0.2 Absolute Basophils 0.0 PT 12.2 INR 0.86 APTT 23.3 L VBG pH VBG pCO2 VBG HCO3 VBG Base Excess Sodium 142.7 Potassium 4.5 Chloride 110 H Carbon Dioxide 27 Anion Gap 6 BUN 18 Creatinine 1.04 Est GFR ( Amer) > 60 Est GFR (Non-Af Amer) 53 L Glucose 204 H Lactic Acid Calcium 9.1 Total Bilirubin 0.6 Direct Bilirubin 0.3 Neonat Total Bilirubin Not Reportable Neonat Direct Bilirubin Not Reportable Neonat Indirect Bili Not Reportable AST 38 H ALT 19 Alkaline Phosphatase 86 Creatine Kinase CK-MB (CK-2) Troponin I NT-Pro-B Natriuret Pep Total Protein 7.2 Albumin 3.9 TSH 04/05/18 04/05/18 04/05/18 17:20 17:20 17:20 WBC RBC Hgb Hct MCV MCH MCHC RDW Plt Count Seg Neutrophils % Lymphocytes % Monocytes % Eosinophils % Basophils % Absolute Neutrophils Absolute Lymphocytes Absolute Monocytes Absolute Eosinophils Absolute Basophils PT INR APTT VBG pH VBG pCO2 VBG HCO3 VBG Base Excess Sodium Potassium Chloride Carbon Dioxide Anion Gap BUN Creatinine Est GFR ( Amer) Est GFR (Non-Af Amer) Glucose Lactic Acid Calcium Total Bilirubin Direct Bilirubin Neonat Total Bilirubin Neonat Direct Bilirubin Neonat Indirect Bili AST ALT Alkaline Phosphatase Creatine Kinase 397 H CK-MB (CK-2) 4.90 H Troponin I 0.039 NT-Pro-B Natriuret Pep 3740 H Total Protein Albumin TSH 04/05/18 04/05/18 04/05/18 17:20 18:15 18:15 WBC RBC Hgb Hct MCV MCH MCHC RDW Plt Count Seg Neutrophils % Lymphocytes % Monocytes % Eosinophils % Basophils % Absolute Neutrophils Absolute Lymphocytes Absolute Monocytes Absolute Eosinophils Absolute Basophils PT INR APTT VBG pH 7.34 VBG pCO2 48.5 VBG HCO3 25.5 VBG Base Excess -0.9 Sodium Potassium Chloride Carbon Dioxide Anion Gap BUN Creatinine Est GFR ( Amer) Est GFR (Non-Af Amer) Glucose Lactic Acid 1.4 Calcium Total Bilirubin Direct Bilirubin Neonat Total Bilirubin Neonat Direct Bilirubin Neonat Indirect Bili AST ALT Alkaline Phosphatase Creatine Kinase CK-MB (CK-2) Troponin I NT-Pro-B Natriuret Pep Total Protein Albumin TSH 1.48 Chest X-Ray 04/05/18 18:16 IMPRESSION: Cardiomegaly with pulmonary edema. Cannot exclude a left lower lobe pneumonia. Cannot exclude a small left pleural effusion. Chest/Abdomen CTA 04/05/18 19:55 IMPRESSION: Moderate bilateral pleural effusions with bilateral atelectasis and consolidation and mild enlargement of the mediastinal lymph nodes. Pulmonary interstitial disease. No evidence of pulmonary embolus. Temp Pulse Resp BP Pulse Ox 98.2 F 21 H 104/67 94 04/05/18 21:15 04/05/18 21:41 04/05/18 21:41 04/05/18 21:41 67-year-old female with congestive heart failure presents with complaint of worsening shortness of breath. Per EMS patient was hypoxic, tachypneic upon their arrival. Patient did receive aspirin, nitro prior to arrival. Previous medical records and nursing notes reviewed. Patient did receive DuoNeb, Lasix and was placed on BiPAP. CBC is without leukocytosis or anemia. CMP does show hyperglycemia without evidence of DKA. VBG within normal limits. Patient's INR is subtherapeutic. She does take Coumadin daily but is unclear why. Patient has mild elevation in her troponin but after review of previous laboratory testing this is the best that it has ever been. BNP is greater than 3000. CTA of the chest shows bilateral pleural effusions right greater than left and is without evidence of PE. Patient has been accepted by the hospitalist for a CHF exacerbation. 04/05/18 23:51 04/05/18 23:53 - Vital Signs Vital signs: Temp Pulse Resp BP Pulse Ox 98.2 F 21 H 104/67 94 04/05/18 21:15 04/05/18 21:41 04/05/18 21:41 04/05/18 21:41 - Laboratory Result Diagrams: 04/05/18 17:20 04/05/18 17:20 Laboratory results interpreted by me: 04/05/18 04/05/18 04/05/18 17:20 17:20 17:20 MCHC 31.8 L RDW 17.9 H APTT 23.3 L Chloride 110 H Est GFR (Non-Af Amer) 53 L Glucose 204 H AST 38 H Creatine Kinase CK-MB (CK-2) NT-Pro-B Natriuret Pep 04/05/18 04/05/18 04/05/18 17:20 17:20 17:20 MCHC RDW APTT Chloride Est GFR (Non-Af Amer) Glucose AST Creatine Kinase 397 H CK-MB (CK-2) 4.90 H NT-Pro-B Natriuret Pep 3740 H - Diagnostic Test Radiology reviewed: Image reviewed, Reports reviewed - EKG Interpretation by [place] EKG shows normal: Sinus rhythm Rate: Normal Rhythm: NSR [place]/QRS: LBBB When compared to previous EKG there are: No significant change Critical Care Note - Critical Care Note Total time excluding time spent on procedures (mins): 40 - Minutes of critical care time spent in direct contact evaluating and reevaluating the patient, treating symptoms, reviewing labs and studies and speaking with family and consultants excluding any procedures Discharge - Discharge Clinical Impression: Bilateral pleural effusion, Elevated troponin, Subtherapeutic international normalized ratio (INR), Hyperglycemia CHF exacerbation Qualifiers: Heart failure type: unspecified Qualified Code(s): I50.9 - Heart failure, unspecified Pulmonary edema Qualifiers: Chronicity: acute Qualified Code(s): J81.0 - Acute pulmonary edema Condition: Good Disposition: ADMITTED INPATIENT Admitting Provider: Hospitalist Unit Admitted: Telemetry
[2018-04-05 21:19] LABS: CREATINE KINASE 397 U/L (30-135)
[2018-04-05 21:32] LABS: CREATINE KINASE MB 4.9 ng/mL (<4.55)
[2018-04-05 21:36] LABS: TROPONIN I 0.039 ng/mL
[2018-04-05] MEDS ORDERED: DEXTROSE 50%-WATER 25 GM/50 ML DISP.SYRIN IV PRN ×2 (22:26)
[2018-04-05] MEDS ORDERED: MAG HYDROX/AL HYDROX/SIMETH SUSP 30 ML UDCUP PO PRN (22:26)
[2018-04-05] MEDS ORDERED: DEXTROSE 40% GEL 15 GM TUBE PO PRN ×2 (22:26)
[2018-04-05] MEDS ORDERED: ACETAMINOPHEN 325 MG TABLET PO PRN (22:26)
[2018-04-05] MEDS ORDERED: GLUCAGON,HUMAN RECOMB 1 MG INJ IM PRN (22:26)
[2018-04-05] MEDS ORDERED: FUROSEMIDE INJ/PF 40 MG/4 ML SDV IV ONE (22:32)
[2018-04-06 00:04] LABS: CREATINE KINASE MB 6.51 ng/mL (<4.55)
[2018-04-06 00:16] LABS: TROPONIN I 1.15 ng/mL
--- NOTE | 2018-04-06 03:44 | PDOC H&P ---
History of Present Illness Admission Date/PCP: 04/05/18 22:42 POLINA CASTRO DPM Patient complains of: Shortness of breath History of Present Illness: EDUARDA JARRELL is a 67 year old female with a past medical history of insulin- dependent diabetes, asthma, hypertension, opiate dependent chronic pain, obstructive sleep apnea and congestive heart failure with an ejection fraction of less than 25% with severe pulmonary hypertension. She presents with difficulty breathing for several weeks and worsening over the last 2 days. She is a very for poor historian and unable to provide history denying recent chest pain, change of diet or medications but evaluation of her medication bag reveals multiple full bottles of Coreg, Lasix but prematurely empty oxycodone. In the emergency room she is found to have hypoxia and is CTA negative for PE but moderate bilateral pleural effusions. She receives Lasix, placed on BiPAP and referred to the hospitalist for admission. Past Medical History Cardiac Medical History: Reports: Hyperlipidema, Hypertension Pulmonary Medical History: Reports: Asthma Denies: Tuberculosis Endocrine Medical History: Reports: Diabetes Mellitus Type 1, Diabetes Mellitus Type 2 Psychiatric Medical History: Reports: Depression Hematology: Denies: Anemia, Sickle Cell Disease Past Surgical History Past Surgical History: Reports: Appendectomy, Section - x2, Orthopedic Surgery - toe Denies: Amputation Social History Information Source: Patient Lives with: Family Smoking Status: Never Smoker Frequency of Alcohol Use: None Hx Recreational Drug Use: No Drugs: None Hx Prescription Drug Abuse: No - Advance Directive Resuscitation Status: Full Code Family History Family History: CAD, DM Parental Family History Reviewed: No Children Family History Reviewed: No Sibling(s) Family History Reviewed.: No Medication/Allergy Home Medications: Docusate Sodium [Colace 100 mg Capsule] 100 mg PO DAILYP PRN 04/17/17 Gabapentin [Neurontin] 800 mg PO Q8 04/17/17 Omeprazole 40 mg PO Q6AM 04/17/17 Ondansetron HCl [Zofran 4 mg Tablet] 4 mg PO Q8HP PRN 04/17/17 Budesonide [Pulmicort 180 mcg Flexhaler] 1 puff IH Q12HP PRN 09/17/17 Ceftriaxone 2 gm/D5w RTU [Rocephin RTU 2 gm/D5w 50 ml Premix Bag] 2 gm IV DAILY MDD last dose 10/12/17 09/17/17 Collagenase Clostridium Hist. [Santyl Ointment 30 gm] 1 applic TP DAILY 09/17/17 Ipratropium/Albuterol Sulfate [Duoneb 3 ml Ampul] 3 ml NEB RTQ4HP PRN 09/17/17 Aspirin [Ecotrin 325 mg EC Tablet] 325 mg PO DAILY tabec 09/24/17 Atorvastatin Calcium [Lipitor 80 mg Tablet] 80 mg PO QHS tablet 09/24/17 Benazepril HCl [Lotensin 5 mg Tablet] 5 mg PO DAILY tablet 09/24/17 Collagenase Clostridium Hist. [Santyl Ointment 30 gm] 1 applic TOP DAILY@1700 tube 09/24/17 Enoxaparin Sodium [Lovenox Inj 100 mg/1 ml Disp.syrin] 100 mg SUBCUT Q12 disp.syrin 09/24/17 Furosemide [Lasix 40 mg Tablet] 40 mg PO DAILY tablet 09/24/17 Insulin Lispro [Humalog Insulin (Lispro) 100 unit/mL] 10 unit SUBCUT AC unit 09/24/17 Metoprolol Tartrate [Lopressor 25 mg Tablet] 12.5 mg PO Q12A tablet 09/24/17 Nitroglycerin [Nitrostat 0.4 mg (1/150 Gr) Tabs 25/Bottle] 1 tab SL Q5MP PRN bottle 09/24/17 Warfarin Sodium [Coumadin 7.5 mg Tablet] 7.5 mg PO QHS tablet 09/24/17 Zolpidem Tartrate [Ambien 5 mg Tablet] 5 mg PO HSP PRN tablet 09/24/17 Acetaminophen with Codeine [Tylenol #3 Tablet] 1 each PO Q4HP PRN #12 tablet 02/08/18 Lidocaine [Lidocaine Pain Relief] 1 each TP DAILY #7 adh..patch 02/08/18 Ciprofloxacin HCl [Cipro 500 mg Tablet] 500 mg PO BID #20 tablet 03/20/18 Ondansetron [Zofran Odt 4 mg Tablet] 1 - 2 tab PO Q8H PRN #30 tab.rapdis 03/20/18 Allergies/Adverse Reactions: No Known Allergies Allergy (Verified 08/25/17 15:23) Review of Systems ROS unobtainable: Due to mental status - In respiratory distress on BiPAP, Other Physical Exam Vital Signs: Temp Pulse Resp BP Pulse Ox 98.2 F 86 15 112/78 100 04/05/18 21:15 04/06/18 02:00 04/06/18 00:34 04/05/18 22:01 04/06/18 00:34 Intake & Output 04/04/18 04/05/18 04/06/18 11:59 11:59 11:59 Weight 100 kg General appearance: PRESENT: disheveled, hard of hearing, morbidly obese, severe distress Head exam: PRESENT: atraumatic, normocephalic Eye exam: PRESENT: conjunctiva pink, EOMI, PERRLA. ABSENT: scleral icterus Ear exam: PRESENT: normal external ear exam Mouth exam: PRESENT: moist, tongue midline Neck exam: PRESENT: JVD. ABSENT: carotid bruit, lymphadenopathy, thyromegaly Respiratory exam: PRESENT: accessory muscle use, clear to auscultation rodrigue, decreased breath sounds, prolonged expiratory phas, tachypnea. ABSENT: rales, rhonchi, wheezes Cardiovascular exam: PRESENT: gallop, RRR. ABSENT: diastolic murmur, rubs, systolic murmur Pulses: PRESENT: normal dorsalis pedis pul Vascular exam: PRESENT: normal capillary refill GI/Abdominal exam: PRESENT: hypoactive bowel sounds, normal bowel sounds, soft. ABSENT: distended, guarding, mass, organolmegaly, rebound, tenderness Rectal exam: PRESENT: deferred Extremities exam: PRESENT: +1 edema Neurological exam: PRESENT: alert, awake, oriented to person, oriented to place, oriented to situation, CN II-XII grossly intact. ABSENT: motor sensory deficit Psychiatric exam: PRESENT: appropriate affect, normal mood. ABSENT: homicidal ideation, suicidal ideation Skin exam: PRESENT: dry, intact, warm. ABSENT: cyanosis, rash Results Laboratory Results: 04/05/18 17:20 04/05/18 17:20 04/05/18 04/05/18 04/05/18 17:20 17:20 17:20 WBC 7.3 RBC 4.56 Hgb 12.5 Hct 39.4 MCV 86 MCH 27.4 MCHC 31.8 L RDW 17.9 H Plt Count 224 Seg Neutrophils % 52.1 Lymphocytes % 35.3 Monocytes % 8.8 Eosinophils % 3.4 Basophils % 0.4 Absolute Neutrophils 3.8 Absolute Lymphocytes 2.6 Absolute Monocytes 0.6 Absolute Eosinophils 0.2 Absolute Basophils 0.0 VBG pH VBG pCO2 VBG HCO3 VBG Base Excess Sodium 142.7 Potassium 4.5 Chloride 110 H Carbon Dioxide 27 Anion Gap 6 BUN 18 Creatinine 1.04 Est GFR ( Amer) > 60 Est GFR (Non-Af Amer) 53 L Glucose 204 H Lactic Acid Calcium 9.1 Total Bilirubin 0.6 AST 38 H ALT 19 Alkaline Phosphatase 86 Total Protein 7.2 Albumin 3.9 TSH 1.48 04/05/18 04/05/18 18:15 18:15 WBC RBC Hgb Hct MCV MCH MCHC RDW Plt Count Seg Neutrophils % Lymphocytes % Monocytes % Eosinophils % Basophils % Absolute Neutrophils Absolute Lymphocytes Absolute Monocytes Absolute Eosinophils Absolute Basophils VBG pH 7.34 VBG pCO2 48.5 VBG HCO3 25.5 VBG Base Excess -0.9 Sodium Potassium Chloride Carbon Dioxide Anion Gap BUN Creatinine Est GFR ( Amer) Est GFR (Non-Af Amer) Glucose Lactic Acid 1.4 Calcium Total Bilirubin AST ALT Alkaline Phosphatase Total Protein Albumin TSH 04/05/18 04/05/18 04/05/18 17:20 17:20 17:20 Creatine Kinase 397 H CK-MB (CK-2) 4.90 H Troponin I 0.039 NT-Pro-B Natriuret Pep 3740 H 04/05/18 04/05/18 23:21 23:21 Creatine Kinase 326 H CK-MB (CK-2) 6.51 H Troponin I 1.150 NT-Pro-B Natriuret Pep Impressions: Chest X-Ray 04/05/18 18:16 IMPRESSION: Cardiomegaly with pulmonary edema. Cannot exclude a left lower lobe pneumonia. Cannot exclude a small left pleural effusion. Chest/Abdomen CTA 04/05/18 19:55 IMPRESSION: Moderate bilateral pleural effusions with bilateral atelectasis and consolidation and mild enlargement of the mediastinal lymph nodes. Pulmonary interstitial disease. No evidence of pulmonary embolus. Assessment & Plan - Diagnosis (1) Acute exacerbation of CHF (congestive heart failure) Qualifiers: Heart failure type: unspecified Qualified Code(s): I50.9 - Heart failure, unspecified Is this a current diagnosis for this admission?: Yes Plan: Multifactorial secondary to medication lifestyle noncompliance. CHF care set de ployed, BiPAP, Lasix with fluid restriction and education (2) Bilateral pleural effusion Is this a current diagnosis for this admission?: Yes Plan: Secondary to #1, BiPAP and diuresis (3) Elevated troponin Is this a current diagnosis for this admission?: Yes Plan: Old left bundle branch block, asymptomatic, presumed non-ST elevation RI aspirin Lovenox beta-vainey ordered, follow-up EKG (4) Chronic pain Qualifiers: Chronic pain type: chronic pain syndrome Qualified Code(s): G89.4 - Chronic pain syndrome Is this a current diagnosis for this admission?: Yes Plan: Opiate dependent chronic pain with subsequent noncompliance of chronic medical conditions. Opiate weaning - Time Time Spent: 50 to 70 Minutes - Inpatient Certification Medical Necessity: Need Close Monitoring Due to Risk of Patient Decompensation
[2018-04-06] MEDS ORDERED: ASPIRIN 81 MG TABLET, CHEWABLE PO ONE (03:45)
[2018-04-06] MEDS ORDERED: ENOXAPARIN SODIUM INJ 100 MG/1 ML DISP.SYRIN SUBCUT ONE (03:45)
[2018-04-06 05:33] LABS: BLOOD UREA NITROGEN 17 mg/dL (7-20); CALCIUM 8.5 mg/dL (8.4-10.2); CREATINE KINASE 293 U/L (30-135); GLUCOSE 315 mg/dL (75-110); POTASSIUM 4.2 mmol/L (3.6-5.0)
[2018-04-06 05:38] LABS: CARBON DIOXIDE 25 mmol/L (22-30); CHLORIDE 110 mmol/L (98-107); SODIUM 139.1 mmol/L (137-145)
[2018-04-06 05:39] LABS: CREATINE KINASE MB 7.16 ng/mL (<4.55)
[2018-04-06 05:41] LABS: TROPONIN I 1.62 ng/mL
[2018-04-06 06:00] LABS: ANION GAP 4 (5-19)
[2018-04-06] MEDS ORDERED: HEPARIN SOD (PORCINE) 5,000 UNIT/ML 1 ML SYRINGE SUBCUT SCH (06:00)
[2018-04-06] MEDS: INSULIN LISPRO 100 UNIT/ML 3 ML VIAL SUBCUT PRN ×3 (07:35→17:47)
[2018-04-06] MEDS: POTASSIUM CHLORIDE 10 MEQ CAPSULE.ER PO SCH ×2 (09:09→21:35)
[2018-04-06 09:57] LABS: APPEARANCE,URINE CLEAR; BILIRUBIN,URINE NEGATIVE (NEGATIVE); COLOR,URINE YELLOW; GLUCOSE, URINE >=500 mg/dL (NEGATIVE); KETONES,URINE NEGATIVE (NEGATIVE); LEUKOCYTE ESTERASE,URINE NEGATIVE (NEGATIVE); NITRITE,URINE NEGATIVE (NEGATIVE); PROTEIN,URINE >=500 mg/dL (NEGATIVE); URINE SPECIFIC GRAVITY 1.026; UROBILINOGEN,URINE NEGATIVE mg/dL (<2.0)
[2018-04-06] MEDS ORDERED: FUROSEMIDE INJ/PF 40 MG/4 ML SDV IV SCH (10:00)
[2018-04-06 10:16] LABS: URINE AMPHETAMINES SCREEN NEGATIVE; URINE BARBITURATES SCREEN NEGATIVE; URINE BENZODIAZEPINES SCREEN NEGATIVE; URINE COCAINE SCREEN NEGATIVE; URINE MARIJUANA (THC) SCREEN NEGATIVE; URINE METHADONE SCREEN NEGATIVE; URINE PHENCYCLIDINE SCREEN NEGATIVE
[2018-04-06 11:38] LABS: CREATINE KINASE MB 6.4 ng/mL (<4.55)
[2018-04-06 11:44] LABS: TROPONIN I 1.07 ng/mL
[2018-04-06] MEDS ORDERED: METOLAZONE 5 MG TABLET PO ONE (12:30)
[2018-04-06] MEDS: OXYCODONE-ACETAMINOPHEN 5-325 MG TABLET PO PRN ×2 (13:27→21:42)
[2018-04-06] MEDS: FUROSEMIDE INJ/PF 40 MG/4 ML SDV IV SCH ×2 (13:28→21:43)
[2018-04-06] MEDS: OXYCODONE HCL IR 5 MG TABLET PO PRN ×2 (13:28→21:41)
--- NOTE | 2018-04-06 17:52 | PROGRESS NOTE E ---
Progress Note NAME: EDUARDA JARRELL : 1950 AGE: 67Y DATE: 04/06/2018 ROOM: 416 SUBJECTIVE: The patient is a 67-year-old female who has a past medical history of hyperlipidemia, hypertension, and shortness of breath. Was found to have congestive heart failure as well as bilateral pleural effusion. She was started on Lasix 40 mg twice a day, placed on BiPAP and she is feeling better today. OBJECTIVE: GENERAL: The patient is lying in bed, comfortable, not in distress. VITAL SIGNS: Temperature 97.4, heart rate 80, respiratory rate 18, saturation 100%. HEENT: Normocephalic/atraumatic. Pupils equal, round, reactive to light and accommodation bilaterally. Mucous membranes intact. Ears: Tympanic membranes intact. No discharge from the ears. No discharge from the nose. NECK: Supple. No increased JVD, no thyromegaly, no lymphadenopathy. CARDIOVASCULAR: Normal S1, S2. Regular rate and rhythm. No murmur, no gallop. RESPIRATORY: Lungs clear. Bilateral crackles. ABDOMEN: Soft. MUSCULOSKELETAL: No edema. NEUROLOGIC: Awake, alert. LABORATORY: Sodium 138, potassium 4.2, creatinine 1.0, white count 7.3, hemoglobin 12. ASSESSMENT AND PLAN: 1. ACUTE CONGESTIVE HEART FAILURE EXACERBATION. Probable acute systolic. Ejection fraction is 25%. 2. HYPOXIC RESPIRATORY FAILURE SECONDARY TO CONGESTIVE HEART FAILURE EXACERBATION. 3. HYPERTENSION. 4. HYPERLIPIDEMIA. Will titrate BiPAP off. Continue nasal cannula. She is on 3 liters now. Will increase Lasix to 40 mg every 8 hours. Will give one dose of Zaroxolyn 5 mg. Monitor electrolytes. Lab tomorrow morning. MEDICAL NECESSITY: Intravenous Lasix. DICTATING PHYSICIAN: KHUSHBU LOPEZ M.D. [id number] PHY#: [id number] ID: [id number] JOB#: [id number] ACCT: [id number] cc: >
[2018-04-06] MEDS: ENOXAPARIN SODIUM INJ 100 MG/1 ML DISP.SYRIN SUBCUT SCH (17:59)
--- NOTE | 2018-04-06 18:35 | EKG REPORT ---
SEVERITY:- ABNORMAL ECG - SINUS RHYTHM PROBABLE LEFT ATRIAL ABNORMALITY LEFT BUNDLE BRANCH BLOCK : Confirmed by: Renzo Ashraf 06-Apr-2018 18:34:36
[2018-04-07] MEDS: ENOXAPARIN SODIUM INJ 100 MG/1 ML DISP.SYRIN SUBCUT SCH ×2 (05:33→17:26)
[2018-04-07] MEDS: FUROSEMIDE INJ/PF 40 MG/4 ML SDV IV SCH (05:34)
[2018-04-07 07:00] LABS: ALBUMIN 3.5 g/dL (3.5-5.0); ANION GAP 8 (5-19); BLOOD UREA NITROGEN 26 mg/dL (7-20); CALCIUM 9.4 mg/dL (8.4-10.2); CARBON DIOXIDE 28 mmol/L (22-30); CHLORIDE 100 mmol/L (98-107); GLUCOSE 398 mg/dL (75-110); PHOSPHORUS 4.4 mg/dL (2.5-4.5); POTASSIUM 4.7 mmol/L (3.6-5.0); SODIUM 135.7 mmol/L (137-145)
[2018-04-07] MEDS: INSULIN LISPRO 100 UNIT/ML 3 ML VIAL SUBCUT PRN ×3 (07:42→16:29)
[2018-04-07 09:52] LABS: ABSOLUTE BASOPHILS # (AUTO) 0.1 10^3/uL (0.0-0.2); ABSOLUTE EOSINOPHILS # (AUTO) 0.2 10^3/uL (0.0-0.6); ABSOLUTE LYMPHOCYTES (AUTO) 2.1 10^3/uL (0.5-4.7); ABSOLUTE MONOCYTES (AUTO) 0.4 10^3/uL (0.1-1.4); ABSOLUTE NEUT (AUTO) 2.1 10^3/uL (1.7-8.2); BASOPHILS % (AUTO) 1.3 % (0-2); EOSINOPHILS % (AUTO) 4.8 % (0-6); HEMATOCRIT 37.8 % (36.0-47.0); HEMOGLOBIN 12.1 g/dL (12.0-15.5); LYMPHOCYTES % (AUTO) 43.4 % (13-45); MEAN CORPUSCULAR HEMOGLOBIN 27.4 pg (27.0-33.4); MEAN CORPUSCULAR VOLUME 86 fl (80-97); MONOCYTES % (AUTO) 8.3 % (3-13); PLATELET COUNT 191 10^3/uL (150-450); RED BLOOD COUNT 4.41 10^6/uL (3.72-5.28); RED CELL DISTRIBUTION WIDTH 17.2 % (11.5-14.0); SEGMENTED NEUTROPHILS % (AUTO) 42.2 % (42-78); TOTAL CELLS COUNTED % (AUTO) 100 %; WHITE BLOOD COUNT 4.9 10^3/uL (4.0-10.5)
[2018-04-07] MEDS: POTASSIUM CHLORIDE 10 MEQ CAPSULE.ER PO SCH ×2 (10:19→21:44)
[2018-04-07] MEDS: ASPIRIN 81 MG TABLET, CHEWABLE PO SCH (10:20)
[2018-04-07] MEDS ORDERED: INSULIN ASPART 25 UNIT SUBCUT SCH (12:00)
[2018-04-07] MEDS: INSULIN LISPRO 100 UNIT/ML 3 ML VIAL SUBCUT SCH ×2 (12:35→16:28)
[2018-04-07] MEDS: GABAPENTIN 400 MG CAPSULE PO SCH ×2 (13:09→21:43)
[2018-04-07] MEDS ORDERED: METOLAZONE 2.5 MG TABLET PO SCH (14:00)
[2018-04-07] MEDS: OXYCODONE-ACETAMINOPHEN 5-325 MG TABLET PO PRN (14:00)
[2018-04-07] MEDS: OXYCODONE HCL IR 5 MG TABLET PO PRN (14:00)
[2018-04-07] MEDS: METOPROLOL TARTRATE 25 MG TABLET PO SCH (21:43)
[2018-04-07] MEDS: ATORVASTATIN CALCIUM 80 MG TABLET PO SCH (21:43)
[2018-04-07] MEDS ORDERED: INSULIN GLARGINE,HUM.REC.ANLOG 300 UNIT/3 ML INSULN.PEN SUBCUT SCH (22:00)
[2018-04-07] MEDS ORDERED: FUROSEMIDE INJ/PF 40 MG/4 ML SDV IV SCH (22:00)
--- NOTE | 2018-04-07 23:50 | EKG REPORT ---
SEVERITY:- ABNORMAL ECG - SINUS RHYTHM LEFT BUNDLE BRANCH BLOCK : Confirmed by: Renzo Ashraf 07-Apr-2018 23:48:36
[2018-04-08] MEDS: OXYCODONE-ACETAMINOPHEN 5-325 MG TABLET PO PRN ×2 (00:33→10:10)
[2018-04-08] MEDS: OXYCODONE HCL IR 5 MG TABLET PO PRN ×2 (00:34→10:11)
[2018-04-08] MEDS: GABAPENTIN 400 MG CAPSULE PO SCH (05:13)
[2018-04-08] MEDS: ENOXAPARIN SODIUM INJ 100 MG/1 ML DISP.SYRIN SUBCUT SCH ×2 (05:13→18:52)
--- NOTE | 2018-04-08 05:32 | PROGRESS NOTE E ---
Progress Note NAME: EDUARDA JARRELL : 1950 AGE: 67Y DATE: 04/07/2018 ROOM: 416 SUBJECTIVE: The patient is a 67-year-old female who had a past medical history significant for hyperlipidemia, hypertension, short of breath. She was found to have congestive heart failure, bilateral pleural effusion. Started on Lasix IV every 8 hours. She received oxygen also. The patient feeling better today. OBJECTIVE: GENERAL: The patient lying in bed comfortable, not in distress. VITAL SIGNS: Temperature is 99.4, heart rate 70, blood pressure 132/68, saturation 99% on 3 L. HEENT: Head: Normocephalic, atraumatic. Pupils round, reactive to light and accommodation bilaterally. Extraocular movements intact. Ears: Tympanic membranes intact bilaterally. No discharge from the ears. No discharge from the nose. NECK: Supple. No increased JVD. No thyromegaly. No lymphadenopathy. CARDIOVASCULAR: Normal S1, S2. Regular rate and rhythm. No murmur. No gallop. RESPIRATORY: Lungs: Bilateral crackles. ABDOMEN: Soft, nontender. MUSCULOSKELETAL: Edema +1. NEUROLOGICAL: Awake, alert. SKIN: No rash. LABORATORY DATA: White blood count 54.9, hemoglobin is 12, hematocrit 37. Creatinine 1.3, BUN 26, sodium 137. ASSESSMENT: 1. ACUTE CONGESTIVE HEART FAILURE EXACERBATION, PROBABLE ACUTE SYSTOLIC. Ejection fraction 25. 2. HYPOXIC RESPIRATORY FAILURE SECONDARY TO CONGESTIVE HEART FAILURE EXACERBATION. 3. HYPERTENSION. 4. HYPERLIPIDEMIA. PLAN: 1. The patient was on BiPAP yesterday and it was titrated to oxygen. Now she is on 3 L. 2. She developed IVY, probably from overdiuresis. She received yesterday Lasix 80 mg every 8 hours and Zaroxolyn 5 mg. Will decrease Lasix to 40 IV twice a day. Will decrease Zaroxolyn to 2.5 mg daily 3. Will reevaluate for home oxygen needs. MEDICAL NECESSITY: IV Lasix. DISPOSITION: Home probably tomorrow. DICTATING PHYSICIAN: KHUSHBU LOPEZ M.D. [id number] PHY#: [id number] ID: [id number] JOB#: [id number] ACCT: [id number] cc: > MTDD
[2018-04-08 06:06] LABS: HEMATOCRIT 38.1 % (36.0-47.0); HEMOGLOBIN 12.1 g/dL (12.0-15.5); MEAN CORPUSCULAR HEMOGLOBIN 27.1 pg (27.0-33.4); MEAN CORPUSCULAR HGB CONC 31.7 g/dL (32.0-36.0); MEAN CORPUSCULAR VOLUME 85 fl (80-97); PLATELET COUNT 188 10^3/uL (150-450); RED BLOOD COUNT 4.47 10^6/uL (3.72-5.28); RED CELL DISTRIBUTION WIDTH 16.8 % (11.5-14.0); WHITE BLOOD COUNT 5.1 10^3/uL (4.0-10.5)
[2018-04-08] MEDS: INSULIN LISPRO 100 UNIT/ML 3 ML VIAL SUBCUT SCH ×3 (08:04→18:52)
[2018-04-08 08:45] LABS: ANION GAP 5 (5-19); BLOOD UREA NITROGEN 36 mg/dL (7-20); CALCIUM 9.3 mg/dL (8.4-10.2); CARBON DIOXIDE 33 mmol/L (22-30); CHLORIDE 95 mmol/L (98-107); GLUCOSE 341 mg/dL (75-110); POTASSIUM 4.7 mmol/L (3.6-5.0); SODIUM 133.2 mmol/L (137-145)
[2018-04-08 09:20] LABS: APPEARANCE,URINE CLEAR; BILIRUBIN,URINE NEGATIVE (NEGATIVE); COLOR,URINE YELLOW; GLUCOSE, URINE 150 mg/dL (NEGATIVE); KETONES,URINE NEGATIVE (NEGATIVE); LEUKOCYTE ESTERASE,URINE NEGATIVE (NEGATIVE); NITRITE,URINE NEGATIVE (NEGATIVE); PROTEIN,URINE 100 mg/dL (NEGATIVE); URINE SPECIFIC GRAVITY 1.013; UROBILINOGEN,URINE NEGATIVE mg/dL (<2.0)
[2018-04-08] MEDS ORDERED: (PENDING PHARMACY ID) (Cholecalciferol (Vitamin D3) [Vitamin D3] 50,000 UNIT) PO SCH (10:00)
[2018-04-08] MEDS ORDERED: ERGOCALCIFEROL (VITAMIN D2) 50000 UNIT (1.25 MG) CAPSULE PO SCH (10:00)
[2018-04-08] MEDS: POTASSIUM CHLORIDE 10 MEQ CAPSULE.ER PO SCH ×2 (10:09→21:00)
[2018-04-08] MEDS: METOLAZONE 2.5 MG TABLET PO SCH (10:10)
[2018-04-08] MEDS: METOPROLOL TARTRATE 25 MG TABLET PO SCH ×2 (10:11→21:00)
[2018-04-08] MEDS: ASPIRIN 81 MG TABLET, CHEWABLE PO SCH (10:11)
[2018-04-08] MEDS: INSULIN LISPRO 100 UNIT/ML 3 ML VIAL SUBCUT PRN ×2 (12:04→20:58)
[2018-04-08] MEDS: GABAPENTIN 300 MG CAPSULE PO SCH ×2 (16:00→20:59)
--- NOTE | 2018-04-08 19:40 | PDOC PROGRESS REPORT ---
Subjective Progress Note for:: 04/08/18 Subjective:: Patient is a 67-year-old female with a past medical history of insulin-dependent diabetes mellitus, hypertension, asthma, sleep apnea, opiate dependent chronic pain, and CHF with an LVEF of less than 25% and severe pulmonary hypertension who was admitted 04/05/2018 for acute CHF exacerbation. Patient was seen on morning rounds. She is found resting in bed comfortably on supplemental oxygen via nasal cannula. She is awake alert and oriented x4, though with odd affect. She reports that she is feeling better today and asks about her discharge to home. She is advised that her kidney function is again elevated today and so her medications need to be held to allow her kidneys to rest. If creatinine recovers, she can possibly be discharged within the next 24-48 hours. Patient denies fever, chills, headache, dizziness, chest pain, palpitations, dyspnea, orthopnea, cough, abdominal pain, nausea vomiting and diarrhea. Next and she has no new questions or concerns. No concerns per nursing. Reason For Visit: PLEURAL EFFUSIONS,HEART FAILURE Physical Exam Vital Signs: Temp Pulse Resp BP Pulse Ox 98 F 69 20 99/56 L 100 04/08/18 16:00 04/08/18 16:00 04/08/18 16:00 04/08/18 16:00 04/08/18 16:00 Intake & Output 04/07/18 04/08/18 04/09/18 06:59 06:59 06:59 Intake Total 990 1557 1187 Output Total 2200 3100 1100 Balance -1210 -1543 87 Weight 99.2 kg 98.2 kg General appearance: PRESENT: no acute distress, cooperative, obese, well- developed, well-nourished Head exam: PRESENT: atraumatic, normocephalic Eye exam: PRESENT: conjunctiva pink, EOMI, PERRLA. ABSENT: scleral icterus Ear exam: PRESENT: normal external ear exam Mouth exam: PRESENT: moist, tongue midline Neck exam: ABSENT: carotid bruit, JVD, lymphadenopathy, thyromegaly Respiratory exam: PRESENT: crackles - Slight, fine, bibasilar, decreased breath sounds - Throughout; secondary to body habitus and poor inspiratory effort, prolonged expiratory phas, symmetrical, unlabored, other - Supplemental oxygen by nasal cannula. ABSENT: rales, rhonchi, wheezes Cardiovascular exam: PRESENT: RRR, +S1, +S2. ABSENT: diastolic murmur, rubs, systolic murmur Pulses: PRESENT: normal dorsalis pedis pul Vascular exam: PRESENT: normal capillary refill GI/Abdominal exam: PRESENT: normal bowel sounds, soft. ABSENT: distended, guarding, mass, organolmegaly, rebound, tenderness Rectal exam: PRESENT: deferred Extremities exam: PRESENT: full ROM, +1 edema - BLE. ABSENT: calf tenderness, clubbing, pedal edema Neurological exam: PRESENT: alert, awake, oriented to person, oriented to place, oriented to time, oriented to situation, CN II-XII grossly intact. ABSENT: motor sensory deficit Psychiatric exam: PRESENT: normal mood, unusual affect. ABSENT: homicidal ideation, suicidal ideation Skin exam: PRESENT: dry, intact, warm. ABSENT: cyanosis, rash Results Laboratory Results: 04/08/18 05:11 04/08/18 05:11 04/08/18 04/08/18 04/08/18 05:11 05:11 08:56 WBC 5.1 RBC 4.47 Hgb 12.1 Hct 38.1 MCV 85 MCH 27.1 MCHC 31.7 L RDW 16.8 H Plt Count 188 Sodium 133.2 L Potassium 4.7 Chloride 95 L Carbon Dioxide 33 H Anion Gap 5 BUN 36 H Creatinine 1.53 H Est GFR ( Amer) 41 L Est GFR (Non-Af Amer) 34 L Glucose 341 H Calcium 9.3 Urine Color YELLOW Urine Appearance CLEAR Urine pH 6.0 Ur Specific Ashley 1.013 Urine Protein 100 H Urine Glucose (UA) 150 H Urine Ketones NEGATIVE Urine Blood NEGATIVE Urine Nitrite NEGATIVE Ur Leukocyte Esterase NEGATIVE Urine WBC (Auto) 1 Urine RBC (Auto) 0 04/05/18 04/05/18 04/05/18 17:20 17:20 17:20 Creatine Kinase 397 H CK-MB (CK-2) 4.90 H Troponin I 0.039 NT-Pro-B Natriuret Pep 3740 H 04/05/18 04/05/18 04/06/18 23:21 23:21 04:50 Creatine Kinase 326 H 293 H CK-MB (CK-2) 6.51 H Troponin I 1.150 NT-Pro-B Natriuret Pep 04/06/18 04/06/18 04/06/18 04:50 10:34 10:34 Creatine Kinase 315 H CK-MB (CK-2) 7.16 H 6.40 H Troponin I 1.620 1.070 NT-Pro-B Natriuret Pep Impressions: Chest X-Ray 04/05/18 18:16 IMPRESSION: Cardiomegaly with pulmonary edema. Cannot exclude a left lower lobe pneumonia. Cannot exclude a small left pleural effusion. Chest/Abdomen CTA 04/05/18 19:55 IMPRESSION: Moderate bilateral pleural effusions with bilateral atelectasis and consolidation and mild enlargement of the mediastinal lymph nodes. Pulmonary interstitial disease. No evidence of pulmonary embolus. Assessment & Plan - Diagnosis (1) Acute exacerbation of CHF (congestive heart failure) Qualifiers: Heart failure type: unspecified Qualified Code(s): I50.9 - Heart failure, unspecified Is this a current diagnosis for this admission?: Yes Plan: Echocardiogram (09/17/17) demonstrates LVEF 25%. proBNP elevated to 3740 EKG demonstrates chronic LBBB CTA of the chest demonstrates moderate bilateral pleural effusions with bilateral atelectasis with mild enlargement of the mediastinal lymph nodes. Pulmonary interstitial disease. No evidence of PE. Patient was admitted to [facility] on continuous cardiac telemetry. Has been placed on a cardiac diet, daily weights, strict I&Os Continue metoprolol, aspirin, atorvastatin. Patient received aggressive IV furosemide for diuresis; has been transitioned to p.o. Furosemide and metolazone dosing decreased today secondary to AK I. (2) IVY (acute kidney injury) Is this a current diagnosis for this admission?: Yes Plan: Secondary to aggressive IV diuresis for management of CHF exacerbation. Creatinine 1.04, now elevated 1.53. Baseline of 1.04. Held furosemide today; will resume lower dose tomorrow morning. Metolazone dose previously decreased; retimed to 30 min prior to morning furosemide Avoid nephrotoxic medications as able. Daily chemistries. (3) Diabetes mellitus Qualifiers: Diabetes mellitus type: type 2 Diabetes mellitus terminal block assembler insulin use: with terminal block assembler use Is this a current diagnosis for this admission?: Yes Plan: Consistent carb diet. Continue home dose Lantus. Continue home dose of Humalog 25 units with meals. Accu-Cheks before meals and at bedtime with Humalog for sliding scale coverage. certified breastfeeding educator and registered dietitian are consulted. (4) Hypertension Is this a current diagnosis for this admission?: Yes Plan: Normotensive. Continue medications as above. (5) Chronic pain Qualifiers: Chronic pain type: other chronic pain Qualified Code(s): G89.29 - Other chronic pain Is this a current diagnosis for this admission?: Yes Plan: Followed by pain management. Continue home dose oxycodone/apap schedule. (6) Opiate dependence, continuous Is this a current diagnosis for this admission?: Yes Plan: As above. - Time Time Spent with patient: 15-24 minutes Medications reviewed and adjusted accordingly: Yes Anticipated discharge: Home Within: within 48 hours
[2018-04-08] MEDS: ATORVASTATIN CALCIUM 80 MG TABLET PO SCH (20:59)
[2018-04-08] MEDS ORDERED: INSULIN GLARGINE,HUM.REC.ANLOG 300 UNIT/3 ML INSULN.PEN SUBCUT SCH (22:00)
[2018-04-09] MEDS: GABAPENTIN 300 MG CAPSULE PO SCH ×3 (05:34→22:28)
[2018-04-09] MEDS: ENOXAPARIN SODIUM INJ 100 MG/1 ML DISP.SYRIN SUBCUT SCH ×2 (05:34→17:29)
[2018-04-09 07:09] LABS: ANION GAP 7 (5-19); BLOOD UREA NITROGEN 37 mg/dL (7-20); CALCIUM 10.1 mg/dL (8.4-10.2); CARBON DIOXIDE 31 mmol/L (22-30); CHLORIDE 98 mmol/L (98-107); GLUCOSE 282 mg/dL (75-110); POTASSIUM 5.4 mmol/L (3.6-5.0); SODIUM 135.6 mmol/L (137-145)
[2018-04-09] MEDS: INSULIN LISPRO 100 UNIT/ML 3 ML VIAL SUBCUT SCH ×3 (08:05→17:28)
[2018-04-09] MEDS: FUROSEMIDE 40 MG TABLET PO SCH (08:06)
[2018-04-09] MEDS: METOLAZONE 2.5 MG TABLET PO SCH (08:08)
[2018-04-09] MEDS: POTASSIUM CHLORIDE 10 MEQ CAPSULE.ER PO SCH ×2 (09:41→22:28)
[2018-04-09] MEDS: METOPROLOL TARTRATE 25 MG TABLET PO SCH ×2 (09:41→22:31)
[2018-04-09] MEDS: ASPIRIN 81 MG TABLET, CHEWABLE PO SCH (09:43)
[2018-04-09] MEDS: OXYCODONE-ACETAMINOPHEN 5-325 MG TABLET PO PRN (09:54)
[2018-04-09] MEDS: OXYCODONE HCL IR 5 MG TABLET PO PRN (09:54)
[2018-04-09] MEDS: INSULIN LISPRO 100 UNIT/ML 3 ML VIAL SUBCUT PRN ×2 (17:28→22:29)
--- NOTE | 2018-04-09 21:59 | PDOC PROGRESS REPORT ---
Subjective Progress Note for:: 04/09/18 Subjective:: Patient is a 67-year-old female with a past medical history of insulin-dependent diabetes mellitus, hypertension, asthma, sleep apnea, opiate dependent chronic pain, and CHF with an LVEF of less than 25% and severe pulmonary hypertension who was admitted 04/05/2018 for acute CHF exacerbation. Patient was seen on morning rounds. She is found resting in bed comfortably on supplemental oxygen via nasal cannula. She is awake alert and oriented x4. Patient ambulated in the hallway on RA today and SPO2 dropped to 80%. She became dizzy and symptomatic. No plans to discharge home at this time. Re-evaluate CXR in AM. Possible need for more diuresis vs. home O2. Reason For Visit: PLEURAL EFFUSIONS,HEART FAILURE Physical Exam Vital Signs: Temp Pulse Resp BP Pulse Ox 97.7 F 72 18 132/68 H 98 04/09/18 08:00 04/09/18 14:00 04/09/18 08:00 04/09/18 08:00 04/09/18 08:00 Intake & Output 04/08/18 04/09/18 04/10/18 06:59 06:59 06:59 Intake Total 1557 1811 Output Total 3100 1100 Balance -1543 711 Weight 98.2 kg 98.2 kg Results Laboratory Results: 04/08/18 05:11 04/09/18 06:12 04/09/18 06:12 Sodium 135.6 L Potassium 5.4 H Chloride 98 Carbon Dioxide 31 H Anion Gap 7 BUN 37 H Creatinine 1.36 H Est GFR ( Amer) 47 L Est GFR (Non-Af Amer) 39 L Glucose 282 H Calcium 10.1 04/05/18 04/05/18 04/05/18 17:20 17:20 17:20 Creatine Kinase 397 H CK-MB (CK-2) 4.90 H Troponin I 0.039 NT-Pro-B Natriuret Pep 3740 H 04/05/18 04/05/18 04/06/18 23:21 23:21 04:50 Creatine Kinase 326 H 293 H CK-MB (CK-2) 6.51 H Troponin I 1.150 NT-Pro-B Natriuret Pep 04/06/18 04/06/18 04/06/18 04:50 10:34 10:34 Creatine Kinase 315 H CK-MB (CK-2) 7.16 H 6.40 H Troponin I 1.620 1.070 NT-Pro-B Natriuret Pep 04/09/18 06:12 Creatine Kinase CK-MB (CK-2) Troponin I NT-Pro-B Natriuret Pep 884 Impressions: Chest X-Ray 04/05/18 18:16 IMPRESSION: Cardiomegaly with pulmonary edema. Cannot exclude a left lower lo be pneumonia. Cannot exclude a small left pleural effusion. Chest/Abdomen CTA 04/05/18 19:55 IMPRESSION: Moderate bilateral pleural effusions with bilateral atelectasis and consolidation and mild enlargement of the mediastinal lymph nodes. Pulmonary interstitial disease. No evidence of pulmonary embolus. Assessment & Plan - Diagnosis (1) Acute exacerbation of CHF (congestive heart failure) Qualifiers: Heart failure type: unspecified Qualified Code(s): I50.9 - Heart failure, unspecified Is this a current diagnosis for this admission?: Yes Plan: Echocardiogram (09/17/17) demonstrates LVEF 25%. proBNP elevated to 3740 EKG demonstrates chronic LBBB CTA of the chest demonstrates moderate bilateral pleural effusions with bilateral atelectasis with mild enlargement of the mediastinal lymph nodes. Pulmonary interstitial disease. No evidence of PE. Patient was admitted to [facility] on continuous cardiac telemetry. Has been placed on a cardiac diet, daily weights, strict I&Os Continue metoprolol, aspirin, atorvastatin. Patient received aggressive IV furosemide for diuresis; has been transitioned to p.o. Furosemide and metolazone dosing decreased today secondary to IVY. Unable to wean from supplemental O2. Repeat CXR in AM to evaluate effusions. (2) IVY (acute kidney injury) Is this a current diagnosis for this admission?: Yes Plan: Secondary to aggressive IV diuresis for management of CHF exacerbation. Resumed low dose furosemide today Metolazone dose previously decreased; retimed to 30 min prior to morning furosemide Avoid nephrotoxic medications as able. Daily chemistries. (3) Hypertension Is this a current diagnosis for this admission?: Yes (4) Uncontrolled diabetes mellitus Qualifiers: Diabetes mellitus type: type 2 Is this a current diagnosis for this admission?: Yes Plan: Consistent carb diet. Increased Lantus to home dose of 55 units sc daily Continue home dose of Humalog 25 units with meals. Accu-Cheks before meals and at bedtime with Humalog for sliding scale coverage. tie in machine operator and registered dietitian are consulted. (5) Opiate dependence, continuous Is this a current diagnosis for this admission?: Yes Plan: As above. (6) Chronic pain Qualifiers: Chronic pain type: other chronic pain Qualified Code(s): G89.29 - Other chronic pain Is this a current diagnosis for this admission?: Yes Plan: Followed by pain management. Continue home dose oxycodone/apap schedule. - Time Time Spent with patient: 15-24 minutes Medications reviewed and adjusted accordingly: Yes Anticipated discharge: SNF Within: within 48 hours - Inpatient Certification Based on my medical assessment, after consideration of the patient's comorbidities, presenting symptoms, or acuity I expect that the services needed warrant INPATIENT care.: Yes I certify that my determination is in accordance with my understanding of Medicare's requirements for reasonable and necessary INPATIENT services [42 CFR 412.3e].: Yes Medical Necessity: Significant Comorbidiites Make Outpatient Treatment Too Risky
[2018-04-09] MEDS: ATORVASTATIN CALCIUM 80 MG TABLET PO SCH (22:28)
[2018-04-09] MEDS: INSULIN GLARGINE,HUM.REC.ANLOG 300 UNIT/3 ML INSULN.PEN SUBCUT SCH (22:30)
[2018-04-10 05:32] LABS: HEMATOCRIT 37.8 % (36.0-47.0); HEMOGLOBIN 12.4 g/dL (12.0-15.5); MEAN CORPUSCULAR HEMOGLOBIN 27.9 pg (27.0-33.4); MEAN CORPUSCULAR HGB CONC 32.8 g/dL (32.0-36.0); MEAN CORPUSCULAR VOLUME 85 fl (80-97); PLATELET COUNT 197 10^3/uL (150-450); RED BLOOD COUNT 4.44 10^6/uL (3.72-5.28); RED CELL DISTRIBUTION WIDTH 16.7 % (11.5-14.0); WHITE BLOOD COUNT 4.8 10^3/uL (4.0-10.5)
[2018-04-10 06:00] LABS: ALANINE AMINOTRANSFERASE 38 U/L (9-52); ALBUMIN 3.3 g/dL (3.5-5.0); ALKALINE PHOSPHATASE 78 U/L (38-126); ANION GAP 5 (5-19); ASPARTATE AMINO TRANSFERASE 34 U/L (14-36); BILIRUBIN,DIRECT 0.2 mg/dL (0.0-0.4); BILIRUBIN,TOTAL 0.3 mg/dL (0.2-1.3); BLOOD UREA NITROGEN 43 mg/dL (7-20); CALCIUM 9.7 mg/dL (8.4-10.2); CARBON DIOXIDE 31 mmol/L (22-30); CHLORIDE 99 mmol/L (98-107); GLUCOSE 333 mg/dL (75-110); POTASSIUM 5.6 mmol/L (3.6-5.0); SODIUM 134.8 mmol/L (137-145); TOTAL PROTEIN 5.9 g/dL (6.3-8.2)
[2018-04-10] MEDS: GABAPENTIN 300 MG CAPSULE PO SCH ×3 (06:27→22:21)
[2018-04-10] MEDS: ENOXAPARIN SODIUM INJ 100 MG/1 ML DISP.SYRIN SUBCUT SCH ×2 (06:27→17:28)
[2018-04-10] MEDS: INSULIN LISPRO 100 UNIT/ML 3 ML VIAL SUBCUT SCH ×3 (07:42→17:27)
[2018-04-10] MEDS: METOLAZONE 2.5 MG TABLET PO SCH (07:43)
[2018-04-10] MEDS: INSULIN LISPRO 100 UNIT/ML 3 ML VIAL SUBCUT PRN ×3 (07:43→17:27)
[2018-04-10] MEDS: FUROSEMIDE 40 MG TABLET PO SCH (07:49)
[2018-04-10] MEDS: OXYCODONE HCL IR 5 MG TABLET PO PRN ×2 (08:57→20:14)
[2018-04-10] MEDS: OXYCODONE-ACETAMINOPHEN 5-325 MG TABLET PO PRN ×2 (08:57→20:15)
[2018-04-10] MEDS: ASPIRIN 81 MG TABLET, CHEWABLE PO SCH (09:23)
[2018-04-10] MEDS: METOPROLOL TARTRATE 25 MG TABLET PO SCH ×3 (09:23→22:32)
[2018-04-10] MEDS: POTASSIUM CHLORIDE 10 MEQ CAPSULE.ER PO SCH ×3 (09:23→22:33)
--- NOTE | 2018-04-10 11:50 | RADIOLOGY REPORT (SQ) ---
EXAM DESCRIPTION: CHEST SINGLE VIEW COMPLETED DATE/TIME: 04/10/2018 11:30 am REASON FOR STUDY: HYPOXIA COMPARISON: CT angio chest 04/05/2018 AP chest 04/05/2018, 09/17/2017 EXAM PARAMETERS: NUMBER OF VIEWS: One view. TECHNIQUE: Single frontal radiographic view of the chest acquired. RADIATION DOSE: NA LIMITATIONS: None. FINDINGS: LUNGS AND PLEURA: No opacities, masses or pneumothorax. No pleural effusion. MEDIASTINUM AND HILAR STRUCTURES: No masses. Contour normal. HEART AND VASCULAR STRUCTURES: Stable moderate cardiomegaly BONES: No acute findings. HARDWARE: None in the chest. OTHER: No other significant finding. IMPRESSION: NO ACUTE RADIOGRAPHIC FINDING IN THE CHEST. TECHNICAL DOCUMENTATION: JOB ID: [id number] [employer]- All Rights Reserved Reading location - IP/workstation name: [email or web address]
--- NOTE | 2018-04-10 21:42 | PDOC PROGRESS REPORT ---
Subjective Progress Note for:: 04/10/18 Subjective:: Patient is a 67-year-old female with a past medical history of insulin-dependent diabetes mellitus, hypertension, asthma, sleep apnea, opiate dependent chronic pain, and CHF with an LVEF of less than 25% and severe pulmonary hypertension who was admitted 04/05/2018 for acute CHF exacerbation. Patient was seen on morning rounds. She is found resting in bed comfortably on room air. She is awake alert and oriented x4. CXR this morning shows improved pulmonary edema. Patient was able to ambulate in the hallway, SPO2 dropped to 91%. She remained asymptomatic. According to discharge planning, the patient qualifies for home O2. Plan to d/c home tomorrow once home O2 has been established. Reason For Visit: PLEURAL EFFUSIONS,HEART FAILURE Physical Exam Vital Signs: Temp Pulse Resp BP Pulse Ox 97.8 F 79 16 105/60 97 04/10/18 15:11 04/10/18 19:00 04/10/18 15:11 04/10/18 15:11 04/10/18 15:11 Intake & Output 04/09/18 04/10/18 04/11/18 06:59 06:59 06:59 Intake Total 1811 800 730 Output Total 1100 300 Balance 711 500 730 Weight 98.2 kg 97.3 kg General appearance: PRESENT: no acute distress, obese Head exam: PRESENT: atraumatic Eye exam: PRESENT: conjunctiva pink, PERRLA Mouth exam: PRESENT: moist Teeth exam: PRESENT: poor dentation Neck exam: PRESENT: full ROM Respiratory exam: PRESENT: clear to auscultation rodrigue, symmetrical, unlabored Cardiovascular exam: PRESENT: +S1, +S2 Pulses: PRESENT: normal radial pulses, normal dorsalis pedis pul GI/Abdominal exam: PRESENT: soft. ABSENT: distended, tenderness Rectal exam: PRESENT: deferred Extremities exam: PRESENT: full ROM Musculoskeletal exam: PRESENT: ambulatory, full ROM Neurological exam: PRESENT: alert, awake, oriented to person, oriented to place, oriented to time, oriented to situation Psychiatric exam: PRESENT: appropriate affect Skin exam: PRESENT: dry, intact, normal color Results Laboratory Results: 04/10/18 05:03 04/10/18 05:03 04/10/18 04/10/18 05:03 05:03 WBC 4.8 RBC 4.44 Hgb 12.4 Hct 37.8 MCV 85 MCH 27.9 MCHC 32.8 RDW 16.7 H Plt Count 197 Sodium 134.8 L Potassium 5.6 H Chloride 99 Carbon Dioxide 31 H Anion Gap 5 BUN 43 H Creatinine 1.37 H Est GFR ( Amer) 47 L Est GFR (Non-Af Amer) 39 L Glucose 333 H Calcium 9.7 Total Bilirubin 0.3 AST 34 ALT 38 Alkaline Phosphatase 78 Total Protein 5.9 L Albumin 3.3 L 04/05/18 04/05/18 04/05/18 17:20 17:20 17:20 Creatine Kinase 397 H CK-MB (CK-2) 4.90 H Troponin I 0.039 NT-Pro-B Natriuret Pep 3740 H 04/05/18 04/05/18 04/06/18 23:21 23:21 04:50 Creatine Kinase 326 H 293 H CK-MB (CK-2) 6.51 H Troponin I 1.150 NT-Pro-B Natriuret Pep 04/06/18 04/06/18 04/06/18 04:50 10:34 10:34 Creatine Kinase 315 H CK-MB (CK-2) 7.16 H 6.40 H Troponin I 1.620 1.070 NT-Pro-B Natriuret Pep 04/09/18 04/10/18 06:12 05:03 Creatine Kinase CK-MB (CK-2) Troponin I NT-Pro-B Natriuret Pep 884 751 Impressions: Chest/Abdomen CTA 04/05/18 19:55 IMPRESSION: Moderate bilateral pleural effusions with bilateral atelectasis and consolidation and mild enlargement of the mediastinal lymph nodes. Pulmonary interstitial disease. No evidence of pulmonary embolus. Chest X-Ray 04/10/18 09:08 IMPRESSION: NO ACUTE RADIOGRAPHIC FINDING IN THE CHEST. Status: Imported from PACS Assessment & Plan - Diagnosis (1) Acute exacerbation of CHF (congestive heart failure) Qualifiers: Heart failure type: unspecified Qualified Code(s): I50.9 - Heart failure, unspecified Is this a current diagnosis for this admission?: Yes Plan: Echocardiogram (09/17/17) demonstrates LVEF 25%. proBNP elevated to 3740 EKG demonstrates chronic LBBB CTA chest upon admission demonstrates moderate bilateral pleural effusions with bilateral atelectasis with mild enlargement of the mediastinal lymph nodes. P ulmonary interstitial disease. No evidence of PE. Repeat CXR today shows significant improvement Patient still requires O2 when ambulating, likely progression of CHF. Plan to send patient home with O2 Patient was admitted to [facility] on continuous cardiac telemetry. Has been placed on a cardiac diet, daily weights, strict I&Os Continue metoprolol, aspirin, atorvastatin. Patient received aggressive IV furosemide for diuresis; has been transitioned to p.o. Furosemide and metolazone dosing decreased today secondary to IVY. (2) IVY (acute kidney injury) Is this a current diagnosis for this admission?: Yes Plan: Secondary to aggressive IV diuresis for management of CHF exacerbation. Resumed low dose furosemide, tolerating well - no change in creatinine Metolazone dose previously decreased; retimed to 30 min prior to morning furosemide Avoid nephrotoxic medications as able. Daily chemistries. (3) Hypertension Qualifiers: Hypertension type: essential hypertension Qualified Code(s): I10 - Essential (primary) hypertension Is this a current diagnosis for this admission?: Yes Plan: Continue home dose Lisinopril and Lopressor (4) Uncontrolled diabetes mellitus Qualifiers: Diabetes mellitus type: type 2 Is this a current diagnosis for this admission?: Yes Plan: Improving Consistent carb diet. Continue Lantus 55 units sc daily Continue home dose of Humalog 25 units with meals. Accu-Cheks before meals and at bedtime with Humalog for sliding scale coverage. coding educator and registered dietitian are consulted. (5) Opiate dependence, continuous Is this a current diagnosis for this admission?: Yes Plan: As above. (6) Chronic pain Qualifiers: Chronic pain type: other chronic pain Qualified Code(s): G89.29 - Other chronic pain Is this a current diagnosis for this admission?: Yes Plan: Followed by pain management. Continue home dose oxycodone/apap schedule. - Time Time Spent with patient: 15-24 minutes Medications reviewed and adjusted accordingly: Yes Anticipated discharge: Home - Inpatient Certification Based on my medical assessment, after consideration of the patient's comorbidities, presenting symptoms, or acuity I expect that the services needed warrant INPATIENT care.: Yes I certify that my determination is in accordance with my understanding of Medicare's requirements for reasonable and necessary INPATIENT services [42 CFR 412.3e].: Yes Medical Necessity: Risk of Complication if Not Cared For in Hospital - Plan Summary Plan Summary: DISCHARGE HOME TOMORROW WHEN HOME O2 AVAILABLE.
[2018-04-10] MEDS: INSULIN GLARGINE,HUM.REC.ANLOG 300 UNIT/3 ML INSULN.PEN SUBCUT SCH (22:22)
[2018-04-10] MEDS: ATORVASTATIN CALCIUM 80 MG TABLET PO SCH (22:22)
[2018-04-11] MEDS: ENOXAPARIN SODIUM INJ 100 MG/1 ML DISP.SYRIN SUBCUT SCH (05:52)
[2018-04-11] MEDS: GABAPENTIN 300 MG CAPSULE PO SCH ×2 (05:52→13:43)
[2018-04-11] MEDS: INSULIN LISPRO 100 UNIT/ML 3 ML VIAL SUBCUT SCH ×2 (08:57→11:24)
[2018-04-11] MEDS: FUROSEMIDE 40 MG TABLET PO SCH (08:59)
[2018-04-11] MEDS: METOPROLOL TARTRATE 25 MG TABLET PO SCH (09:05)
[2018-04-11] MEDS: METOLAZONE 2.5 MG TABLET PO SCH (09:06)
[2018-04-11] MEDS: ASPIRIN 81 MG TABLET, CHEWABLE PO SCH (09:11)
[2018-04-11] MEDS: POTASSIUM CHLORIDE 10 MEQ CAPSULE.ER PO SCH (11:19)
[2018-04-11] MEDS: INSULIN LISPRO 100 UNIT/ML 3 ML VIAL SUBCUT PRN (11:25)
[2018-04-11] MEDS: OXYCODONE HCL IR 5 MG TABLET PO PRN (13:42)
[2018-04-11] MEDS: OXYCODONE-ACETAMINOPHEN 5-325 MG TABLET PO PRN (13:43)
[2018-04-11 13:59] LABS: ANION GAP 8 (5-19); BLOOD UREA NITROGEN 41 mg/dL (7-20); CALCIUM 9.8 mg/dL (8.4-10.2); CARBON DIOXIDE 29 mmol/L (22-30); CHLORIDE 97 mmol/L (98-107); GLUCOSE 347 mg/dL (75-110); PHOSPHORUS 4.9 mg/dL (2.5-4.5)
[2018-04-11] MEDS ORDERED: INSULIN LISPRO 100 UNIT/ML 3 ML VIAL SUBCUT ONE (14:25)
[2018-04-11 16:04] VITALS: BP 132/68
--- NOTE | 2018-04-16 13:12 | PDOC DISCHARGE SUMMARY ---
Addendum entered and electronically signed by WALTER MILLER NP 05/03/18 07:16: Assessment and Plan - Assessment and Plan (1) Acute hypoxemic respiratory failure Is this a current diagnosis for this admission?: Yes Plan: SECONDARY TO CHF EXACERBATION (2) Acute exacerbation of CHF (congestive heart failure) Qualifiers: Heart failure type: unspecified Qualified Code(s): I50.9 - Heart failure, unspecified Is this a current diagnosis for this admission?: Yes Plan: ACCORDING TO ECHOCARDIOGRAM FROM 2018, PATIENT SUFFERS FROM SYSTOLIC HEART FAILURE. LVEF 25-35% (3) IVY (acute kidney injury) Is this a current diagnosis for this admission?: Yes (4) Hypertension Qualifiers: Hypertension type: essential hypertension Qualified Code(s): I10 - Essential (primary) hypertension Is this a current diagnosis for this admission?: Yes (5) Uncontrolled diabetes mellitus Qualifiers: Diabetes mellitus type: type 2 Is this a current diagnosis for this admission?: Yes (6) Opiate dependence, continuous Is this a current diagnosis for this admission?: Yes (7) Chronic pain Qualifiers: Chronic pain type: other chronic pain Qualified Code(s): G89.29 - Other chronic pain Is this a current diagnosis for this admission?: Yes - Time Spent with Patient Medications reviewed and adjusted accordingly: Yes - Disposition Anticipated Discharge: Home Original Note: General - Admit/Disc Date/PCP Admission Date/Primary Care Provider: 04/05/18 22:42 POLINA CASTRO DPM Discharge Date: 04/11/18 - Discharge Diagnosis (1) Acute exacerbation of CHF (congestive heart failure) Is this a current diagnosis for this admission?: Yes (2) IVY (acute kidney injury) Is this a current diagnosis for this admission?: Yes (3) Hypertension Is this a current diagnosis for this admission?: Yes (4) Uncontrolled diabetes mellitus Is this a current diagnosis for this admission?: Yes (5) Opiate dependence, continuous Is this a current diagnosis for this admission?: Yes (6) Chronic pain Is this a current diagnosis for this admission?: Yes - Additional Information Resuscitation Status: Full Code Discharge Diet: Cardiac, Diabetic Discharge Activity: Activity As Tolerated, Balance Activity w/Rest, Weigh Daily Prescriptions: Metolazone [Zaroxolyn 2.5 mg Tablet] 2.5 mg PO QAM #30 tablet Home Medications: Atorvastatin Calcium [Lipitor 80 mg Tablet] 80 mg PO QHS 04/06/18 Cholecalciferol (Vitamin D3) [Vitamin D3] 50,000 unit PO MO@1000 04/06/18 Furosemide [Lasix 40 mg Tablet] 40 mg PO QAM 04/06/18 Gabapentin [Neurontin] 800 mg PO Q8 04/06/18 Insulin Aspart [Novolog Insulin (Aspart) 100 unit/mL] 25 unit SUBCUT MEALS 04/06/18 Insulin Glargine,Hum.rec.anlog [Basaglar Kwikpen U-100] 55 unit SQ QPM 04/06/18 Metoprolol Tartrate [Lopressor 25 mg Tablet] 25 mg PO Q12 04/06/18 Oxycodone HCl/Acetaminophen [Percocet 7.5-325 mg Tablet] 1 each PO Q8 04/06/18 Potassium Chloride [Klor-Con 10 Meq Capsule ER] 10 meq PO DAILY 04/06/18 Warfarin Sodium [Coumadin 1 mg Tablet] 1 mg PO DAILY 04/06/18 Lisinopril [Prinivil 5 mg Tablet] 5 mg PO DAILY 04/09/18 Insulin Glargine,Hum.rec.anlog [Lantus Insulin 100 Unit/mL] 55 unit SUBCUT QHS insuln.pen 04/11/18 Metolazone [Zaroxolyn 2.5 mg Tablet] 2.5 mg PO QAM #30 tablet 04/11/18 History of Present Illness History of Present Illness: EDUARDA JARRELL is a 67 year old female with a past medical history of insulin- dependent diabetes, asthma, hypertension, opiate dependent chronic pain, obstructive sleep apnea and congestive heart failure with an ejection fraction of less than 25% with severe pulmonary hypertension. She presents with difficulty breathing for several weeks and worsening over the last 2 days. She is a very for poor historian and unable to provide history denying recent chest pain, change of diet or medications but evaluation of her medication bag reveals multiple full bottles of Coreg, Lasix but prematurely empty oxycodone. In the emergency room she is found to have hypoxia and is CTA negative for PE but moderate bilateral pleural effusions. She receives Lasix, placed on BiPAP and referred to the hospitalist for admission. Hospital Course Hospital Course: Patient is a 67-year-old female with a past medical history of insulin-dependent diabetes mellitus, hypertension, asthma, sleep apnea, opiate dependent chronic pain, and CHF with an LVEF of less than 25% and severe pulmonary hypertension who was admitted 04/05/2018 for acute CHF exacerbation. EKG showed a chronic LBBB. CTA chest upon admission demonstrates moderate bilateral pleural effusions with bilateral atelectasis with mild enlargement of the mediastinal lymph nodes. Pulmonary interstitial disease. No evidence of PE. She was aggressively diuresed with IV lasix and PO metolazone for management of her CHF exacerbation. Her initial proBNP 3740 decreased 751. Unfortunately, the patient developed an IVY as a result of the aggressive diuresis. She was transitioned to low dose PO lasix, her home dose Metolazone was decreased & retimed to 30 min prior to morning furosemide. Follow up CXR demonstrated improvement of her pleural effusions. Despite this improvement, the patient required O2 via nasal cannula throughout her hospitalization. Even on her last hospital day, she could not ambulate without O2, otherwise her SpO2 would drop to 80%. With the help of case management, the patient was discharged home on O2. She also received a pres cription for her metolazone. For further information regarding this patient's hospitalization, please refer to the EMR. Physical Exam Vital Signs: Temp Pulse Resp BP Pulse Ox 97.9 F 76 16 132/68 H 100 04/11/18 15:54 04/11/18 15:54 04/11/18 15:54 04/11/18 15:54 04/11/18 15:54 Results Laboratory Results: 04/10/18 05:03 04/11/18 13:13 04/05/18 04/05/18 04/05/18 17:20 17:20 17:20 Creatine Kinase 397 H CK-MB (CK-2) 4.90 H Troponin I 0.039 NT-Pro-B Natriuret Pep 3740 H 04/05/18 04/05/18 04/06/18 23:21 23:21 04:50 Creatine Kinase 326 H 293 H CK-MB (CK-2) 6.51 H Troponin I 1.150 NT-Pro-B Natriuret Pep 04/06/18 04/06/18 04/06/18 04:50 10:34 10:34 Creatine Kinase 315 H CK-MB (CK-2) 7.16 H 6.40 H Troponin I 1.620 1.070 NT-Pro-B Natriuret Pep 04/09/18 04/10/18 06:12 05:03 Creatine Kinase CK-MB (CK-2) Troponin I NT-Pro-B Natriuret Pep 884 751 Impressions: Chest/Abdomen CTA 04/05/18 19:55 IMPRESSION: Moderate bilateral pleural effusions with bilateral atelectasis and consolidation and mild enlargement of the mediastinal lymph nodes. Pulmonary interstitial disease. No evidence of pulmonary embolus. Chest X-Ray 04/10/18 09:08 IMPRESSION: NO ACUTE RADIOGRAPHIC FINDING IN THE CHEST. Qualifiers - * PATIENT BEING DISCHARGED WITH ANY OF THE FOLLOWING DIAGNOSIS: Heart Failure HF Pt being discharged on ACEI for LVEF less than 40%?: Yes HF Pt being discharged on ARBS for LVEF less than 40%?: No Reason(s) for not prescribing ARBS:: Not indicated - patient already take ACEI HF Pt with Afib discharged with Warfarin?: No Reason(s) for not prescribing Warfarin:: Not indicated - patient does not have afib HF Pt discharged on evidence-based Beta Liza:: Yes
== END 2018-04-11 17:10 | disposition home or self-care (01) | DRG 291 ==
LOC: ER 17:59 → EH 22:42 → 4W 04-06 01:22
PROVIDERS: ADMIT Internal Medicine; ATTEND Internal Medicine
PROC: 5A09457 Assistance with Respiratory Ventilation, 24-96 Consecutive Hours, Continuous Positive Airway Pressure (ICD-10-PCS; principal; 2018-04-05)
DX: I11.0 Hypertensive heart disease with heart failure (principal); J96.01 Acute respiratory failure with hypoxia; I50.21 Acute systolic (congestive) heart failure; F11.20 Opioid dependence, uncomplicated; N17.9 Acute kidney failure, unspecified; J98.11 Atelectasis; E11.65 Type 2 diabetes mellitus with hyperglycemia; G89.4 Chronic pain syndrome; Z79.4 Long term (current) use of insulin; G47.33 Obstructive sleep apnea (adult) (pediatric); T50.1X5A Adverse effect of loop [high-ceiling] diuretics, initial encounter; I27.20 Pulmonary hypertension, unspecified; E78.5 Hyperlipidemia, unspecified; J45.909 Unspecified asthma, uncomplicated; I44.7 Left bundle-branch block, unspecified; R59.9 Enlarged lymph nodes, unspecified; F32.9 Major depressive disorder, single episode, unspecified; Z90.49 Acquired absence of other specified parts of digestive tract; Z79.82 Long term (current) use of aspirin; Z79.899 Other long term (current) drug therapy; Z83.3 Family history of diabetes mellitus; Z82.49 Family history of ischemic heart disease and other diseases of the circulatory system; Z91.14 Patient's other noncompliance with medication regimen
CPT/HCPCS: 36415; 71045; 71275; 80048; 80053; 80069; 80307; 81001; 82550; 82553; 82803; 82962; 83605; 83735; 83880; 84100; 84443; 84484; 85025; 85027; 85610; 85730; 90471; 90686; 93005; 93010; 94640; 94660; 96374; 99291; G0008; J1650; J1815; J1940; J3490; J7620

== ENCOUNTER 2018-06-28 10:04 | Inpatient (IN) | payer MEDICARE, MEDICAID ==
[2018-06-28] MEDS ORDERED: MAGNESIUM SULFATE/D5W 1 GM/100 ML RTUPB IV ONE ×2 (10:14)
[2018-06-28] MEDS ORDERED: IPRATROPIUM/ALBUTEROL 0.5-2.5 MG/3 ML AMPUL NEB ONE (10:14)
--- NOTE | 2018-06-28 10:18 | ER Document Report ---
ED Medical Screen (RME) - General Chief Complaint: Shortness Of Breath Stated Complaint: SHORTNESS OF BREATH Time Seen by Provider: 06/28/18 10:13 Primary Care Provider: POLINA CASTRO DPM [Primary Care Provider] - Follow up as needed TRAVEL OUTSIDE OF THE [place] IN LAST 30 DAYS: No - HPI Notes: 06/28/18 10:14 Patient is a 67-year-old female with a history of COPD, hypertension, and diabetes who presents to the emergency department complaining of semi productive cough, wheeze, increased dyspnea on exertion over the past 2 days. Pt states that she can barely walk 10 feet without getting short of breath. Patient states that she was oxygen dependent, but was taken off of oxygen about a month ago. She has had a decreased appetite. She is still urinating normally. Denies MAY, fever, neck pain, CP, Abd pain, or rash. I have treated and performed a rapid initial assessment of this patient. A comprehensive ED assessment and evaluation of the patient, analysis of test re sults and completion of medical decision making process will be conducted by additional ED providers. PHYSICAL EXAMINATION: GENERAL: Well-appearing, well-nourished and in no acute distress at rest. Increased work of breathing noted with patient exerting. A&Ox4. Answers questions appropriately. Vitals: Pt not tachycardic. Her O2 on RA varied from 85%-93%. Pt was placed on 2L via NC. LUNGS: slight diminishment b/l, prolonged expiration. no retractions. HEART: Regular rate and rhythm without murmurs, rubs, gallops. Extremities: No cyanosis, clubbing, or edema b/l. NEUROLOGICAL: Normal speech, normal gait. PSYCH: Normal mood, normal affect. - Related Data Allergies/Adverse Reactions: No Known Allergies Allergy (Verified 06/28/18 10:09) Past Medical History - Past Medical History Cardiac Medical History: Reports: Hx Hypercholesterolemia, Hx Hypertension Pulmonary Medical History: Reports: Hx Asthma Denies: Hx Tuberculosis Endocrine Medical History: Reports: Hx Diabetes Mellitus Type 1, Hx Diabetes Mellitus Type 2 Renal/ Medical History: Denies: Hx Peritoneal Dialysis Psychiatric Medical History: Reports: Hx Depression Past Surgical History: Reports: Hx Appendectomy, Hx Section - x2, Hx Orthopedic Surgery - toe - Immunizations Immunizations up to date: Yes Hx Diphtheria, Pertussis, Tetanus Vaccination: Yes - 2011 History of Influenza Vaccine for 12/2016 - 05/2017 Season: Yes Influenza Administration Date for 12/2016 - 05/2017 Season: 01/30/17 Physical Exam - Vital signs Vitals: Temp Pulse Resp BP Pulse Ox 98.8 F 96 26 H 136/86 H 89 L 06/28/18 10:09 06/28/18 10:09 06/28/18 10:06/28/18 10:06/28/18 10:09 Course - Vital Signs Vital signs: Temp Pulse Resp BP Pulse Ox 98.8 F 96 26 H 136/86 H 89 L 06/28/18 10:09 06/28/18 10:09 06/28/18 10:09 06/28/18 10:06/28/18 10:09 Doctor's Discharge - Discharge Referrals: POLINA CASTRO DPM [Primary Care Provider] - Follow up as needed
--- NOTE | 2018-06-28 11:00 | RADIOLOGY REPORT (SQ) ---
EXAM DESCRIPTION: CHEST SINGLE VIEW COMPLETED DATE/TIME: 06/28/2018 10:52 am REASON FOR STUDY: cough, wheeze COMPARISON: 04/10/2018. EXAM PARAMETERS: NUMBER OF VIEWS: One view. TECHNIQUE: Single frontal radiographic view of the chest acquired. RADIATION DOSE: NA LIMITATIONS: None. FINDINGS: LUNGS AND PLEURA: No opacities, masses or pneumothorax. Possible small right pleural effu alyssa. MEDIASTINUM AND HILAR STRUCTURES: No masses. Contour normal. HEART AND VASCULAR STRUCTURES: Cardiac enlargement. Mild vascular congestion. BONES: No acute findings. HARDWARE: None in the chest. OTHER: No other significant finding. IMPRESSION: CARDIAC ENLARGEMENT. MILD VASCULAR CONGESTION. TECHNICAL DOCUMENTATION: JOB ID: [id number] [email or web address]- All Rights Reserved Reading location - IP/workstation name: [email or web address]
[2018-06-28 11:17] LABS: VENOUS BLOOD BASE EXCESS -1.4 mmol/L; VENOUS BLOOD HCO3 24.5 mmol/L (20-32); VENOUS BLOOD PCO2 45.9 mmHg (35-63); VENOUS BLOOD PH 7.35 (7.30-7.42)
[2018-06-28 11:18] LABS: ABSOLUTE BASOPHILS # (AUTO) 0.1 10^3/uL (0.0-0.2); ABSOLUTE EOSINOPHILS # (AUTO) 0.1 10^3/uL (0.0-0.6); ABSOLUTE LYMPHOCYTES (AUTO) 2.3 10^3/uL (0.5-4.7); ABSOLUTE MONOCYTES (AUTO) 0.8 10^3/uL (0.1-1.4); BASOPHILS % (AUTO) 0.8 % (0-2); EOSINOPHILS % (AUTO) 1.6 % (0-6); HEMATOCRIT 37.6 % (36.0-47.0); HEMOGLOBIN 12.1 g/dL (12.0-15.5); LYMPHOCYTES % (AUTO) 24.8 % (13-45); MEAN CORPUSCULAR HEMOGLOBIN 27.2 pg (27.0-33.4); MEAN CORPUSCULAR HGB CONC 32.3 g/dL (32.0-36.0); MEAN CORPUSCULAR VOLUME 84 fl (80-97); PLATELET COUNT 187 10^3/uL (150-450); RED BLOOD COUNT 4.47 10^6/uL (3.72-5.28); RED CELL DISTRIBUTION WIDTH 16.6 % (11.5-14.0); SEGMENTED NEUTROPHILS % (AUTO) 63.8 % (42-78); TOTAL CELLS COUNTED % (AUTO) 100 %; WHITE BLOOD COUNT 9.4 10^3/uL (4.0-10.5)
[2018-06-28 11:36] LABS: ALANINE AMINOTRANSFERASE 65 U/L (9-52); ALBUMIN 3.9 g/dL (3.5-5.0); ALKALINE PHOSPHATASE 94 U/L (38-126); ANION GAP 6 (5-19); ASPARTATE AMINO TRANSFERASE 112 U/L (14-36); BILIRUBIN,DIRECT 0.2 mg/dL (0.0-0.4); BILIRUBIN,TOTAL 0.6 mg/dL (0.2-1.3); BLOOD UREA NITROGEN 27 mg/dL (7-20); CALCIUM 9.6 mg/dL (8.4-10.2); CARBON DIOXIDE 25 mmol/L (22-30); CHLORIDE 109 mmol/L (98-107); GLUCOSE 169 mg/dL (75-110); POTASSIUM 4.3 mmol/L (3.6-5.0); SODIUM 140.3 mmol/L (137-145); TOTAL PROTEIN 7.5 g/dL (6.3-8.2)
[2018-06-28] MEDS ORDERED: KETOROLAC TROMETHAMINE INJ/PF 30 MG/1 ML SDV IV ONE (13:28)
[2018-06-28] MEDS ORDERED: NORMAL SALINE 1000 ML 500 ML IV ONE (13:30)
[2018-06-28] MEDS ORDERED: NORMAL SALINE 1000 ML 250 ML IV ONE (13:34)
--- NOTE | 2018-06-28 14:26 | ER Document Report ---
ED General - General Chief Complaint: Shortness Of Breath Stated Complaint: SHORTNESS OF BREATH Time Seen by Provider: 06/28/18 10:13 Mode of Arrival: Wheelchair Information source: Patient Notes: Patient is a 67-year-old female who presents the emergency department with chief complaint of shortness of breath worsening over the last 3 days. Patient reports history of CHF and COPD. States that she used to wear home oxygen at 2 L, states this was taken away from her 6 weeks ago after a tobacco shaker felt she did not need it anymore. Patient was recently admitted here to this facility for CHF exacerbation. Patient denies any nausea, vomiting, diarrhea or fever. Patient reports she is not able to walk around due to extreme dyspnea. TRAVEL OUTSIDE OF THE [place] IN LAST 30 DAYS: No - Related Data Allergies/Adverse Reactions: No Known Allergies Allergy (Verified 06/28/18 10:09) Past Medical History - General Information source: Patient - Social History Smoking Status: Former Smoker Chew tobacco use (# tins/day): No Frequency of alcohol use: None Drug Abuse: None Family History: CAD, DM Patient has suicidal ideation: No Patient has homicidal ideation: No - Past Medical History Cardiac Medical History: Reports: Hx Congestive Heart Failure, Hx Hypercholesterolemia, Hx Hypertension Pulmonary Medical History: Reports: Hx Asthma, Hx COPD Denies: Hx Tuberculosis Endocrine Medical History: Reports: Hx Diabetes Mellitus Type 1, Hx Diabetes Mellitus Type 2 Renal/ Medical History: Denies: Hx Peritoneal Dialysis Psychiatric Medical History: Reports: Hx Depression Past Surgical History: Reports: Hx Appendectomy, Hx Section - x2, Hx Orthopedic Surgery - toe - Immunizations Immunizations up to date: Yes Hx Diphtheria, Pertussis, Tetanus Vaccination: Yes - 2011 Hx Pneumococcal Vaccination: 12/17/10 Review of Systems - Review of Systems Constitutional: Malaise. denies: Fever EENT: No symptoms reported Cardiovascular: Orthopnea, Dyspnea. denies: Chest pain, Palpitations Respiratory: Cough, Short of breath. denies: Hurts to breathe, Wheezing Gastrointestinal: No symptoms reported Physical Exam - Vital signs Vitals: Temp Pulse Resp BP Pulse Ox 98.8 F 96 26 H 136/86 H 89 L 06/28/18 10:09 06/28/18 10:09 06/28/18 10:09 06/28/18 10:06/28/18 10:09 - Notes Notes: PHYSICAL EXAMINATION: GENERAL: Well-nourished and in no acute distress. HEAD: Atraumatic, normocephalic. EYES: Pupils equal round and reactive to light, extraocular movements intact, conjunctiva are normal. ENT: Nares patent, oropharynx clear without exudates. Moist mucous membranes. NECK: Normal range of motion, supple without lymphadenopathy LUNGS: Breath sounds clear to auscultation bilaterally and equal. No wheezes rales or rhonchi. HEART: Regular rate and rhythm without murmurs ABDOMEN: Soft, nontender, nondistended abdomen. No guarding, no rebound. No masses appreciated. Female : deferred Musculoskeletal: Normal range of motion, no pitting or edema. No cyanosis. NEUROLOGICAL: Cranial nerves grossly intact. Normal speech. Normal sensory, motor exams PSYCH: Normal mood, normal affect. SKIN: Warm, Dry, normal turgor, no rashes or lesions noted. Course - Re-evaluation Re-evalutation: Patient was initially seen by provider in triage ordered a DuoNeb as well as magnesium sulfate IV. Chest x-ray and lab work is pending. Patient does not appear to be in any acute distress at this time. Her lung sounds are clear rodrigue aterally. 06/28/18 14:25 Cardiomegaly and vascular congestion noted on chest x-ray. BNP was added on and is elevated at 11,000. Patient does have a mildly elevated creatinine of 1.42, she has not had a creatinine this high in the past. I will give the patient 250 mL's of IV fluids as patient does states she has not eaten or had anything to drink in several days. Will consult hospitalist for admission. Nursing staff attempted to ambulate patient, she was unable to tolerate this due to complaints of extreme shortness of breath. - Vital Signs Vital signs: Temp Pulse Resp BP Pulse Ox 99.2 F 88 25 H 108/60 90 L 06/28/18 19:40 06/28/18 19:40 06/28/18 19:40 06/28/18 19:40 06/28/18 19:40 - Laboratory Result Diagrams: 06/28/18 11:00 06/28/18 11:00 Laboratory results interpreted by me: 06/28/18 06/28/18 06/28/18 10:51 11:00 11:00 RDW 16.6 H Chloride 109 H BUN 27 H Creatinine 1.42 H Est GFR ( Amer) 45 L Est GFR (Non-Af Amer) 37 L Glucose 169 H POC Glucose 150 H AST 112 H ALT 65 H NT-Pro-B Natriuret Pep 06/28/18 06/28/18 11:00 16:25 RDW Chloride BUN Creatinine Est GFR ( Amer) Est GFR (Non-Af Amer) Glucose POC Glucose 183 H AST ALT NT-Pro-B Natriuret Pep 36751 H Discharge - Discharge Clinical Impression: Dyspnea on exertion CHF exacerbation Qualifiers: Heart failure type: systolic Qualified Code(s): I50.23 - Acute on chronic systolic (congestive) heart failure Condition: Stable Disposition: ADMITTED INPATIENT Admitting Provider: Curt (Hospitalist) Unit Admitted: Telemetry
[2018-06-28] MEDS ORDERED: DEXTROSE 40% GEL 15 GM TUBE PO PRN ×2 (15:31)
[2018-06-28] MEDS ORDERED: GLUCAGON,HUMAN RECOMB 1 MG INJ IM PRN (15:31)
[2018-06-28] MEDS ORDERED: DEXTROSE 50%-WATER 25 GM/50 ML DISP.SYRIN IV PRN ×2 (15:31)
[2018-06-28] MEDS: INSULIN LISPRO 100 UNIT/ML 3 ML VIAL SUBCUT SCH ×3 (16:32→23:10)
--- NOTE | 2018-06-28 17:58 | PDOC H&P ---
History of Present Illness Admission Date/PCP: 06/28/18 17:01 MEGAN BRADLEY PA-C History of Present Illness: EDUARDA JARRELL is a 67 year old female with a history of CHF and diabetes who is a terrible historian. She says she came into the ER today because she was having trouble getting into a truck. It took a great deal of questioning to finally determined that she was too short of breath to get into the truck. She is unable to tell me just exactly how long she has had worsening shortness of breath. She did wind up telling me that someone told her to stop her Lasix about a week ago, but she cannot remember why. She does have a history of systolic congestive heart failure and insulin-dependent diabetes mellitus. I saw on the chart that she also had a history of a left ventricular thrombus diagnosed early September 2017 and she was on Coumadin as of March of this year, bu t she does not know if she still taking it. In the ER she was noted to have some JVD and crackles on examination. She is being admitted for diuresis and medical management. Past Medical History Cardiac Medical History: Reports: Congestive Heart Failure, Hyperlipidema, Hypertension Pulmonary Medical History: Reports: Asthma, Chronic Obstructive Pulmonary Disease (COPD) Denies: Tuberculosis Endocrine Medical History: Reports: Diabetes Mellitus Type 1, Diabetes Mellitus Type 2 Psychiatric Medical History: Reports: Depression Hematology: Denies: Anemia, Sickle Cell Disease Past Surgical History Past Surgical History: Reports: Appendectomy, Section - x2, Orthopedic Surgery - toe Denies: Amputation Social History Smoking Status: Former Smoker Frequency of Alcohol Use: None Hx Recreational Drug Use: No Drugs: None Hx Prescription Drug Abuse: No Family History Family History: CAD, DM Parental Family History Reviewed: Yes - She is not sure Children Family History Reviewed: Yes - She is not sure Sibling(s) Family History Reviewed.: Yes - She thinks diabetes and heart disease but she is not sure Medication/Allergy Home Medications: Amlodipine Besylate [Norvasc 5 mg Tablet] 5 mg PO DAILY 06/28/18 Atorvastatin Calcium [Lipitor 80 mg Tablet] 80 mg PO QHS 06/28/18 Budesonide/Formoterol Fumarate [Symbicort HFA 160-4.5 mcg Inhaler 6 gm] 2 puff IH Q12 06/28/18 Ergocalciferol (Vitamin D2) [Drisdol 50,000 unit (1.25MG) Capsule] 50,000 unit PO MO 06/28/18 Furosemide [Lasix 40 mg Tablet] 40 mg PO DAILY 06/28/18 Gabapentin [Neurontin] 800 mg PO Q8 06/28/18 Insulin Aspart [Novolog Flexpen] 20 units SQ ASDIR 06/28/18 Insulin Glargine,Hum.rec.anlog [Basaglar Kwikpen U-100] 50 units SQ DAILY 06/28 Lisinopril [Zestril] 5 mg PO DAILY 06/28/18 Metoprolol Tartrate [Lopressor 25 mg Tablet] 25 mg PO BID 06/28/18 Oxycodone HCl/Acetaminophen [Percocet 7.5-325 mg Tablet] 1 tab PO Q6HP PRN 06/28/18 Paroxetine HCl [Paxil] 10 mg PO DAILY 06/28/18 Potassium Chloride [Klor-Con M10] 10 meq PO DAILY 06/28/18 Allergies/Adverse Reactions: No Known Allergies Allergy (Verified 06/28/18 10:09) Review of Systems All systems: reviewed and no additional remarkable complaints except as stated - All systems were reviewed and were negative except as noted in the HPI Physical Exam Vital Signs: Temp Pulse Resp BP Pulse Ox 97.8 F 96 18 120/74 91 L 06/28/18 17:33 06/28/18 10:09 06/28/18 17:00 06/28/18 15:30 06/28/18 17:00 Intake & Output 06/27/18 06/28/18 06/29/18 06:59 06:59 06:59 Intake Total 450 Balance 450 Weight 100.7 kg General appearance: PRESENT: no acute distress, cooperative, disheveled, obese Head exam: PRESENT: atraumatic, normocephalic Eye exam: PRESENT: EOMI, PERRLA. ABSENT: conjunctival injection, nystagmus, scleral icterus Ear exam: PRESENT: normal external ear exam Mouth exam: PRESENT: moist, neck supple Teeth exam: PRESENT: poor dentation Throat exam: ABSENT: post pharyngeal erythema Neck exam: PRESENT: full ROM, JVD. ABSENT: carotid bruit, lymphadenopathy, meningismus, tenderness, thyromegaly Respiratory exam: PRESENT: crackles - Bibasilar, symmetrical, unlabored. ABSENT: accessory muscle use, prolonged expiratory phas, rhonchi, tachypnea, wheezes Cardiovascular exam: PRESENT: RRR, +S1, +S2 Pulses: PRESENT: normal carotid pulses Vascular exam: PRESENT: normal capillary refill GI/Abdominal exam: PRESENT: normal bowel sounds, soft. ABSENT: distended, g uarding, rebound, tenderness Extremities exam: PRESENT: pedal edema, +1 edema. ABSENT: clubbing Musculoskeletal exam: PRESENT: normal inspection. ABSENT: deformity Neurological exam: PRESENT: alert, awake, oriented to person, oriented to place, oriented to situation, CN II-XII grossly intact. ABSENT: motor sensory deficit Psychiatric exam: PRESENT: appropriate affect, normal mood Skin exam: PRESENT: dry, warm Results Laboratory Results: 06/28/18 11:00 06/28/18 11:00 06/28/18 06/28/18 06/28/18 11:00 11:00 11:00 WBC 9.4 RBC 4.47 Hgb 12.1 Hct 37.6 MCV 84 MCH 27.2 MCHC 32.3 RDW 16.6 H Plt Count 187 Seg Neutrophils % 63.8 Lymphocytes % 24.8 Monocytes % 9.0 Eosinophils % 1.6 Basophils % 0.8 Absolute Neutrophils 6.0 Absolute Lymphocytes 2.3 Absolute Monocytes 0.8 Absolute Eosinophils 0.1 Absolute Basophils 0.1 VBG pH 7.35 VBG pCO2 45.9 VBG HCO3 24.5 VBG Base Excess -1.4 Sodium 140.3 Potassium 4.3 Chloride 109 H Carbon Dioxide 25 Anion Gap 6 BUN 27 H Creatinine 1.42 H Est GFR ( Amer) 45 L Est GFR (Non-Af Amer) 37 L Glucose 169 H Calcium 9.6 Total Bilirubin 0.6 AST 112 H ALT 65 H Alkaline Phosphatase 94 Total Protein 7.5 Albumin 3.9 06/28/18 11:00 NT-Pro-B Natriuret Pep 75063 H Impressions: Chest X-Ray 06/28/18 10:14 IMPRESSION: CARDIAC ENLARGEMENT. MILD VASCULAR CONGESTION. Assessment and Plan - Diagnosis (1) Acute on chronic respiratory failure with hypoxemia Is this a current diagnosis for this admission?: Yes Plan: She says she was supposed to be on oxygen at home but it had been taken away. We will continue oxygen support here to maintain her SPO2 greater than 90%. (2) Acute exacerbation of CHF (congestive heart failure) Qualifiers: Heart failure type: systolic Qualified Code(s): I50.23 - Acute on chronic systolic (congestive) heart failure Is this a current diagnosis for this admission?: Yes Plan: Last echocardiogram showed an EF of 25%. We will make sure she is medically optimized. We will give her IV Lasix. She said someone told her to stop taking her Lasix. Whether or not that is true, she said she had not had it in a week. We will monitor her urine output, renal function, and electrolytes. (3) Tuctu-nq-ahygtia kidney injury Qualifiers: Acute renal failure type: unspecified Chronic kidney disease stage: stage 3 (moderate) Qualified Code(s): N17.9 - Acute kidney failure, unspecified; N18.3 - Chronic kidney disease, stage 3 (moderate) Is this a current diagnosis for this admission?: Yes Plan: Her creatinine is not too far off from baseline. In the ER it seems that she got steroids, bronchodilator, magnesium, and some IV fluids for a CHF exacerbation with a creatinine that not too far off baseline. - Time Time Spent with patient: 35 or more minutes - Inpatient Certification Medical Necessity: Significant Comorbidiites Make Outpatient Treatment Too Risky, Need Close Monitoring Due to Risk of Patient Decompensation, Need For Continuous Telemetry Monitoring
--- NOTE | 2018-06-28 18:10 | ADVANCED CARE ---
- Diagnosis (1) Acute on chronic respiratory failure with hypoxemia Diagnosis Current: Yes (2) Acute exacerbation of CHF (congestive heart failure) Diagnosis Current: Yes (3) Pgncu-be-irybrtg kidney injury Diagnosis Current: Yes Resuscitation Status: Full Code Discussion: she says she has a good quality of life and wants everything done at this point to prolong it Time Spent: 10
[2018-06-28] MEDS: INSULIN GLARGINE,HUM.REC.ANLOG 1,000 UNIT/10 ML VIAL SUBCUT SCH (23:11)
[2018-06-28] MEDS: ATORVASTATIN CALCIUM 80 MG TABLET PO SCH (23:14)
[2018-06-28] MEDS: METOPROLOL SUCCINATE 25 MG TAB.SR.24H PO SCH (23:15)
[2018-06-28] MEDS: OXYCODONE-ACETAMINOPHEN 5-325 MG TABLET PO PRN (23:17)
[2018-06-29] MEDS: INSULIN LISPRO 100 UNIT/ML 3 ML VIAL SUBCUT SCH ×7 (08:21→21:51)
[2018-06-29] MEDS: METOPROLOL SUCCINATE 25 MG TAB.SR.24H PO SCH ×2 (09:09→21:50)
[2018-06-29] MEDS: LISINOPRIL 5 MG TABLET PO SCH (09:09)
[2018-06-29] MEDS: FLUTICASONE/VILANTEROL 200-25 MCG/DOSE IH SCH (09:14)
[2018-06-29] MEDS: OXYCODONE-ACETAMINOPHEN 5-325 MG TABLET PO PRN ×2 (09:18→19:49)
[2018-06-29] MEDS: FUROSEMIDE INJ/PF 40 MG/4 ML SDV IV SCH ×2 (10:27→21:50)
[2018-06-29 10:51] LABS: ANION GAP 8 (5-19); BLOOD UREA NITROGEN 30 mg/dL (7-20); CALCIUM 8.6 mg/dL (8.4-10.2); CARBON DIOXIDE 21 mmol/L (22-30); CHLORIDE 107 mmol/L (98-107); GLUCOSE 232 mg/dL (75-110); POTASSIUM 4.4 mmol/L (3.6-5.0); SODIUM 135.9 mmol/L (137-145)
--- NOTE | 2018-06-29 13:12 | EKG REPORT ---
SEVERITY:- ABNORMAL ECG - SINUS RHYTHM LEFT BUNDLE BRANCH BLOCK : Confirmed by: Renzo Ashraf 29-Jun-2018 13:11:58
--- NOTE | 2018-06-29 18:55 | PDOC PROGRESS REPORT ---
Subjective Progress Note for:: 06/29/18 Subjective:: No adverse events overnight. She said she feels a little bit better but still feels sort of poorly. She is able to get up to the bathroom but gets a little short of breath by the time she gets there, and is little bit short of breath by the time she gets back to bed. She says she feels like she is a little less swollen in general. Reason For Visit: ACUTE CHRONIC RESP FAILURE WITH HYPOXEMIA,ACUTE Physical Exam Vital Signs: Temp Pulse Resp BP Pulse Ox 98.9 F 79 26 H 103/67 92 06/29/18 12:03 06/29/18 14:00 06/29/18 12:03 06/29/18 12:03 06/29/18 12:03 Intake & Output 06/28/18 06/29/18 06/30/18 06:59 06:59 06:59 Intake Total 1090 237 Balance 1090 237 Weight 101.1 kg General appearance: PRESENT: no acute distress, cooperative, disheveled, obese Respiratory exam: PRESENT: crackles - Bibasilar, faint, diminished overall, symmetrical, unlabored. ABSENT: accessory muscle use, prolonged expiratory phas, rhonchi, tachypnea, wheezes Cardiovascular exam: PRESENT: RRR, +S1, +S2 Pulses: PRESENT: normal carotid pulses Vascular exam: PRESENT: normal capillary refill GI/Abdominal exam: PRESENT: normal bowel sounds, soft. ABSENT: distended, guarding, rebound, tenderness Extremities exam: PRESENT: pedal edema, +1 edema. ABSENT: clubbing Musculoskeletal exam: PRESENT: normal inspection. ABSENT: deformity Neurological exam: PRESENT: alert, awake, oriented to person, oriented to place, oriented to situation Psychiatric exam: PRESENT: appropriate affect, normal mood Skin exam: PRESENT: dry, warm Results Laboratory Results: 06/28/18 11:00 06/29/18 09:50 06/29/18 09:50 Sodium 135.9 L Potassium 4.4 Chloride 107 Carbon Dioxide 21 L Anion Gap 8 BUN 30 H Creatinine 1.45 H Est GFR ( Amer) 44 L Est GFR (Non-Af Amer) 36 L Glucose 232 H Calcium 8.6 06/28/18 06/29/18 11:00 09:50 NT-Pro-B Natriuret Pep 90626 H 6140 H Impressions: Chest X-Ray 06/28/18 10:14 IMPRESSION: CARDIAC ENLARGEMENT. MILD VASCULAR CONGESTION. Assessment and Plan - Diagnosis (1) Acute on chronic respiratory failure with hypoxemia Is this a current diagnosis for this admission?: Yes Plan: She is on diuretics, improving, will wean O2 as tolerated (2) Acute exacerbation of CHF (congestive heart failure) Qualifiers: Heart failure type: systolic Qualified Code(s): I50.23 - Acute on chronic systolic (congestive) heart failure Is this a current diagnosis for this admission?: Yes Plan: We will continue with IV Lasix. We will continue her beta-vianey and her WENDIE inhibitor. (3) Uiheb-wn-nygdnup kidney injury Qualifiers: Acute renal failure type: unspecified Chronic kidney disease stage: stage 3 (moderate) Qualified Code(s): N17.9 - Acute kidney failure, unspecified; N18.3 - Chronic kidney disease, stage 3 (moderate) Is this a current diagnosis for this admission?: Yes Plan: Her creatinine is not too far off from baseline. In the ER it seems that she got steroids, bronchodilator, magnesium, and some IV fluids for a CHF exacerbation with a creatinine that not too far off baseline. - Time Time Spent with patient: 15-24 minutes
[2018-06-29] MEDS: ATORVASTATIN CALCIUM 80 MG TABLET PO SCH (21:50)
[2018-06-29] MEDS: INSULIN GLARGINE,HUM.REC.ANLOG 1,000 UNIT/10 ML VIAL SUBCUT SCH (21:50)
[2018-06-30] MEDS ORDERED: POLYETHYLENE GLYCOL 3350 POWDER 17 GM/1 PACKET PO PRN (09:17)
[2018-06-30 09:33] LABS: ANION GAP 8 (5-19); BLOOD UREA NITROGEN 28 mg/dL (7-20); CALCIUM 8.7 mg/dL (8.4-10.2); CARBON DIOXIDE 21 mmol/L (22-30); CHLORIDE 108 mmol/L (98-107); GLUCOSE 86 mg/dL (75-110); POTASSIUM 4.1 mmol/L (3.6-5.0); SODIUM 136.9 mmol/L (137-145)
[2018-06-30] MEDS: INSULIN LISPRO 100 UNIT/ML 3 ML VIAL SUBCUT SCH ×7 (09:48→22:08)
[2018-06-30] MEDS: FLUTICASONE/VILANTEROL 200-25 MCG/DOSE IH SCH (10:36)
[2018-06-30] MEDS: FUROSEMIDE INJ/PF 40 MG/4 ML SDV IV SCH (10:37)
[2018-06-30] MEDS: LISINOPRIL 5 MG TABLET PO SCH (10:37)
[2018-06-30] MEDS: METOPROLOL SUCCINATE 25 MG TAB.SR.24H PO SCH ×2 (10:37→22:09)
--- NOTE | 2018-06-30 14:23 | PDOC PROGRESS REPORT ---
Subjective Progress Note for:: 06/30/18 Subjective:: This is a 67 year old female with a history of CHF with an EF of 25%, chronic respiratory failure on home O2, and diabetes who presented with increasing SOB. She was admitted for CHF exacerbation. She has a history of a LV thrombus and was on coumadin before. Daughter syas she is not on it anymore but not sure why. Called daughter who says patient was taken off coumadin by her PCP a few months ago as it was deemed she does not need it anymore. Assumed care today. No acute event overnight. She is getting diuresed with IV Lasix. She says she still feels SOB and "congested" but this is better compared to yesterday. Denies chest pain or any other acute complaint. Reason For Visit: ACUTE CHRONIC RESP FAILURE WITH HYPOXEMIA,ACUTE Physical Exam Vital Signs: Temp Pulse Resp BP Pulse Ox 98.4 F 76 17 126/78 H 98 06/30/18 11:37 06/30/18 11:37 06/30/18 11:37 06/30/18 11:37 06/30/18 11:37 Intake & Output 06/29/18 06/30/18 07/01/18 06:59 06:59 06:59 Intake Total 1090 737 Output Total 1000 Balance 1090 -263 Weight 222 lb 14.197 oz 225 lb 8.526 oz General appearance: PRESENT: no acute distress, well-developed, well-nourished Head exam: PRESENT: atraumatic, normocephalic Eye exam: PRESENT: conjunctiva pink, EOMI, PERRLA. ABSENT: scleral icterus Ear exam: PRESENT: normal external ear exam Mouth exam: PRESENT: moist, tongue midline Neck exam: ABSENT: carotid bruit, JVD, lymphadenopathy, thyromegaly Respiratory exam: PRESENT: rhonchi. ABSENT: rales, wheezes Cardiovascular exam: PRESENT: RRR, systolic murmur. ABSENT: diastolic murmur, rubs Pulses: PRESENT: normal dorsalis pedis pul GI/Abdominal exam: PRESENT: normal bowel sounds, soft. ABSENT: distended, guarding, mass, organolmegaly, rebound, tenderness Rectal exam: PRESENT: deferred Neurological exam: PRESENT: alert, awake, oriented to person, oriented to place, oriented to time, oriented to situation, CN II-XII grossly intact. ABSENT: motor sensory deficit Results Laboratory Results: 06/28/18 11:00 06/30/18 08:22 06/30/18 08:22 Sodium 136.9 L Potassium 4.1 Chloride 108 H Carbon Dioxide 21 L Anion Gap 8 BUN 28 H Creatinine 1.38 H Est GFR ( Amer) 46 L Est GFR (Non-Af Amer) 38 L Glucose 86 Calcium 8.7 06/28/18 06/29/18 06/30/18 11:00 09:50 08:22 NT-Pro-B Natriuret Pep 00534 H 6140 H 4750 H Impressions: Chest X-Ray 06/28/18 10:14 IMPRESSION: CARDIAC ENLARGEMENT. MILD VASCULAR CONGESTION. Assessment and Plan - Diagnosis (1) Acute on chronic respiratory failure with hypoxemia Is this a current diagnosis for this admission?: Yes Plan: Saturating well on home O2 requirement of 2L via NC. (2) Acute exacerbation of CHF (congestive heart failure) Qualifiers: Heart failure type: systolic Qualified Code(s): I50.23 - Acute on chronic systolic (congestive) heart failure Is this a current diagnosis for this admission?: Yes Plan: Improving. Decrease Lasix to 40 mg IV daily. (3) Kejmw-ku-klbgmxd kidney injury Qualifiers: Acute renal failure type: unspecified Chronic kidney disease stage: stage 3 (moderate) Qualified Code(s): N17.9 - Acute kidney failure, unspecified; N18.3 - Chronic kidney disease, stage 3 (moderate) Is this a current diagnosis for this admission?: Yes Plan: Creatinine has slightly improved from 1.45 to 1.38. She is close to her baseline. Decrease Lasix. (4) Diabetes mellitus Qualifiers: Diabetes mellitus type: type 2 Diabetes mellitus halfway insulin use: with assistant terminal manager use Is this a current diagnosis for this admission?: Yes Plan: Sugars at goal. Continue Lantus and sliding scale. - Time Time Spent with patient: 25-34 minutes
[2018-06-30] MEDS: OXYCODONE-ACETAMINOPHEN 5-325 MG TABLET PO PRN (15:39)
[2018-06-30] MEDS ORDERED: BISACODYL 10 MG SUPP.RECT PR ONE (18:00)
[2018-06-30] MEDS: ATORVASTATIN CALCIUM 80 MG TABLET PO SCH (22:09)
[2018-06-30] MEDS: INSULIN GLARGINE,HUM.REC.ANLOG 1,000 UNIT/10 ML VIAL SUBCUT SCH (22:09)
[2018-07-01] MEDS: OXYCODONE-ACETAMINOPHEN 5-325 MG TABLET PO PRN ×2 (00:50→11:16)
[2018-07-01] MEDS: INSULIN LISPRO 100 UNIT/ML 3 ML VIAL SUBCUT SCH ×7 (08:21→22:27)
[2018-07-01] MEDS: FLUTICASONE/VILANTEROL 200-25 MCG/DOSE IH SCH (09:36)
[2018-07-01] MEDS: FUROSEMIDE INJ/PF 40 MG/4 ML SDV IV SCH (09:42)
[2018-07-01] MEDS: LISINOPRIL 5 MG TABLET PO SCH (09:42)
[2018-07-01] MEDS: METOPROLOL SUCCINATE 25 MG TAB.SR.24H PO SCH ×2 (09:42→22:28)
[2018-07-01 12:43] LABS: ANION GAP 6 (5-19); BLOOD UREA NITROGEN 24 mg/dL (7-20); CALCIUM 9.1 mg/dL (8.4-10.2); CARBON DIOXIDE 23 mmol/L (22-30); CHLORIDE 107 mmol/L (98-107); GLUCOSE 120 mg/dL (75-110); POTASSIUM 4.2 mmol/L (3.6-5.0); SODIUM 135.9 mmol/L (137-145)
[2018-07-01] MEDS ORDERED: BUMETANIDE INJ/PF 1 MG/4 ML SDV IV ONE (14:10)
--- NOTE | 2018-07-01 14:15 | PDOC PROGRESS REPORT ---
Subjective Progress Note for:: 07/01/18 Subjective:: This is a 67 year old female with a history of CHF with an EF of 25%, chronic respiratory failure on home O2, and diabetes who presented with increasing SOB. She was admitted for CHF exacerbation. She has a history of a LV thrombus and was on coumadin before. Daughter syas she is not on it anymore but not sure why. Called daughter who says patient was taken off coumadin by her PCP a few months ago as it was deemed she does not need it anymore. 06/30: Assumed care today. No acute event overnight. She is getting diuresed with IV Lasix. She says she still feels SOB and "congested" but this is better compared to yesterday. Denies chest pain or any other acute complaint. 07/01: No acute event overnight. She says she is still short of breath with only mild improvement from yesterday. She is not at her baseline yet and says she went to the bathroom before encounter and she got winded. She says she is not diuresing well with the Lasix overnight. Denies chest pain. Reason For Visit: ACUTE CHRONIC RESP FAILURE WITH HYPOXEMIA,ACUTE Physical Exam Vital Signs: Temp Pulse Resp BP Pulse Ox 98.2 F 73 20 107/74 99 07/01/18 12:00 07/01/18 12:00 07/01/18 12:00 07/01/18 12:00 07/01/18 12:00 Intake & Output 06/30/18 07/01/18 07/02/18 06:59 06:59 06:59 Intake Total 737 702 Output Total 1000 Balance -263 702 Weight 225 lb 8.526 oz 222 lb 7.143 oz General appearance: PRESENT: no acute distress, well-developed, well-nourished Head exam: PRESENT: atraumatic, normocephalic Eye exam: PRESENT: conjunctiva pink, EOMI, PERRLA. ABSENT: scleral icterus Ear exam: PRESENT: normal external ear exam Mouth exam: PRESENT: moist, tongue midline Neck exam: ABSENT: carotid bruit, JVD, lymphadenopathy, thyromegaly Respiratory exam: PRESENT: rales - bases. ABSENT: rhonchi, wheezes Cardiovascular exam: PRESENT: RRR. ABSENT: diastolic murmur, rubs Pulses: PRESENT: normal dorsalis pedis pul GI/Abdominal exam: PRESENT: normal bowel sounds, soft. ABSENT: distended, guarding, mass, organolmegaly, rebound, tenderness Rectal exam: PRESENT: deferred Extremities exam: PRESENT: +1 edema Neurological exam: PRESENT: alert, awake, oriented to person, oriented to place, oriented to time, oriented to situation, CN II-XII grossly intact. ABSENT: motor sensory deficit Results Laboratory Results: 06/28/18 11:00 07/01/18 12:07 07/01/18 12:07 Sodium 135.9 L Potassium 4.2 Chloride 107 Carbon Dioxide 23 Anion Gap 6 BUN 24 H Creatinine 1.24 Est GFR ( Amer) 53 L Est GFR (Non-Af Amer) 43 L Glucose 120 H Calcium 9.1 06/28/18 06/29/18 06/30/18 11:00 09:50 08:22 NT-Pro-B Natriuret Pep 52327 H 6140 H 4750 H Impressions: Chest X-Ray 06/28/18 10:14 IMPRESSION: CARDIAC ENLARGEMENT. MILD VASCULAR CONGESTION. Assessment and Plan - Diagnosis (1) Acute on chronic respiratory failure with hypoxemia Is this a current diagnosis for this admission?: Yes Plan: Saturating well on home O2 requirement of 2L via NC. (2) Acute exacerbation of CHF (congestive heart failure) Qualifiers: Heart failure type: systolic Qualified Code(s): I50.23 - Acute on chronic systolic (congestive) heart failure Is this a current diagnosis for this admission?: Yes Plan: Improving. Decrease Lasix to 40 mg IV daily. 07/01: Continue Lasix at 40 mg daily. Creatinine has improved today. Will give an extra dose of Bumex and assess response. Strict I&Os. (3) Xchno-zo-gxopdnp kidney injury Qualifiers: Acute renal failure type: unspecified Chronic kidney disease stage: stage 3 (moderate) Qualified Code(s): N17.9 - Acute kidney failure, unspecified; N18.3 - Chronic kidney disease, stage 3 (moderate) Is this a current diagnosis for this admission?: Yes Plan: Creatinine has slightly improved from 1.45 to 1.38. She is close to her baseline. Decrease Lasix. 07/01: Creatinine continues to improve and is down to 1.2 today. (4) Diabetes mellitus Qualifiers: Diabetes mellitus type: type 2 Diabetes mellitus parts counterman insulin use: with group home use Is this a current diagnosis for this admission?: Yes Plan: Sugars at goal. Continue Lantus and sliding scale. - Time Time Spent with patient: 15-24 minutes
--- NOTE | 2018-07-01 15:24 | RADIOLOGY REPORT (SQ) ---
EXAM DESCRIPTION: CHEST SINGLE VIEW COMPLETED DATE/TIME: 07/01/2018 3:03 pm REASON FOR STUDY: reassess congestion COMPARISON: 06/28/2018 EXAM PARAMETERS: NUMBER OF VIEWS: One view. TECHNIQUE: Single frontal radiographic view of the chest acquired. RADIATION DOSE: NA LIMITATIONS: None. FINDINGS: LUNGS AND PLEURA: Pulmonary vascular congestion. Mild pulmonary edema. Increased retroca rdiac opacification on the left. The left hemidiaphragm is indistinct. MEDIASTINUM AND HILAR STRUCTURES: No masses. Contour normal. HEART AND VASCULAR STRUCTURES: Cardiomegaly. BONES: No acute findings. HARDWARE: None in the chest. OTHER: No other significant finding. IMPRESSION: Cardiomegaly with mild pulmonary edema. Cannot exclude left lower lobe pneumonia. TECHNICAL DOCUMENTATION: JOB ID: [id number] [employer]- All Rights Reserved Reading location - IP/workstation name: [email or web address]
[2018-07-01] MEDS: ATORVASTATIN CALCIUM 80 MG TABLET PO SCH (22:28)
[2018-07-01] MEDS: INSULIN GLARGINE,HUM.REC.ANLOG 1,000 UNIT/10 ML VIAL SUBCUT SCH (22:28)
[2018-07-02] MEDS: INSULIN LISPRO 100 UNIT/ML 3 ML VIAL SUBCUT SCH ×7 (08:02→22:52)
[2018-07-02] MEDS: FLUTICASONE/VILANTEROL 200-25 MCG/DOSE IH SCH (09:09)
[2018-07-02] MEDS: FUROSEMIDE INJ/PF 40 MG/4 ML SDV IV SCH (09:09)
[2018-07-02] MEDS: METOPROLOL SUCCINATE 25 MG TAB.SR.24H PO SCH ×2 (09:10→22:13)
[2018-07-02] MEDS: LISINOPRIL 5 MG TABLET PO SCH (09:11)
[2018-07-02] MEDS: OXYCODONE-ACETAMINOPHEN 5-325 MG TABLET PO PRN ×2 (09:32→22:13)
--- NOTE | 2018-07-02 14:46 | PDOC PROGRESS REPORT ---
Subjective Progress Note for:: 07/02/18 Subjective:: Patient feels somewhat better than admission but still fatigues quickly with slightest ambulation Reason For Visit: ACUTE CHRONIC RESP FAILURE WITH HYPOXEMIA,ACUTE Physical Exam Vital Signs: Temp Pulse Resp BP Pulse Ox 97.6 F 75 16 122/81 95 07/02/18 11:44 07/02/18 14:00 07/02/18 11:44 07/02/18 11:44 07/02/18 11:44 Intake & Output 07/01/18 07/02/18 07/03/18 06:59 06:59 06:59 Intake Total 702 1160 Output Total 2700 Balance 702 -1540 Weight 100.9 kg 101.6 kg General appearance: PRESENT: cooperative, mild distress, obese, well-developed Head exam: PRESENT: atraumatic, normocephalic Eye exam: PRESENT: conjunctiva pink. ABSENT: scleral icterus Ear exam: PRESENT: normal external ear exam Mouth exam: PRESENT: moist, tongue midline Respiratory exam: PRESENT: rales - Bilaterally, symmetrical. ABSENT: prolonged expiratory phas, rhonchi, wheezes Cardiovascular exam: PRESENT: RRR, +S1, +S2 GI/Abdominal exam: PRESENT: normal bowel sounds, soft. ABSENT: distended, guarding, tenderness Rectal exam: PRESENT: deferred Gentrourinary exam: ABSENT: indwelling catheter Extremities exam: ABSENT: pedal edema Musculoskeletal exam: PRESENT: normal inspection Neurological exam: PRESENT: alert, awake, oriented to person, oriented to place, oriented to time, oriented to situation, CN II-XII grossly intact Psychiatric exam: PRESENT: flat affect. ABSENT: agitated, anxious Focused psych exam: ABSENT: delusional, restlessness Skin exam: PRESENT: dry, warm. ABSENT: rash Results Laboratory Results: 06/28/18 11:00 07/01/18 12:07 06/28/18 06/29/18 06/30/18 11:00 09:50 08:22 NT-Pro-B Natriuret Pep 93472 H 6140 H 4750 H Impressions: Chest X-Ray 07/01/18 00:00 IMPRESSION: Cardiomegaly with mild pulmonary edema. Cannot exclude left lower lobe pneumonia. Assessment and Plan - Diagnosis (1) Acute on chronic respiratory failure with hypoxemia Is this a current diagnosis for this admission?: Yes Plan: 07/02/2018-the patient is improved. She states that she wears oxygen at home but typically only at night or as needed. She does report not being compliant with her furosemide therapy and this is likely the etiology of her respiratory failure. She is still on oxygen but feels better. We will continue aggressive diuresis and aim for discharge to home with home health tomorrow. (2) Acute exacerbation of CHF (congestive heart failure) Qualifiers: Heart failure type: systolic Qualified Code(s): I50.23 - Acute on chronic systolic (congestive) heart failure Is this a current diagnosis for this admission?: Yes Plan: 07/02/2018-her ejection fraction on an echocardiogram from September 2017 was less than 25%. She is improved with more aggressive diuresis. As there is an adjustment. Starting Entresto and she is likely going to be discharged tomorrow and we will refer her to outpatient cardiology to initiate Entresto in place of lisinopril. She is on the lisinopril, metoprolol and furosemide. (3) Gvhli-he-glchmdb kidney injury Qualifiers: Acute renal failure type: unspecified Chronic kidney disease stage: stage 3 (moderate) Qualified Code(s): N17.9 - Acute kidney failure, unspecified; N18.3 - Chronic kidney disease, stage 3 (moderate) Is this a current diagnosis for this admission?: Yes Plan: 07/02/2018-she appears to be back to her baseline. The exacerbation of her heart failure likely because the acute injury. Continue to monitor renal function. 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 She exhibits very good glucose control. (5) Obesity (BMI 30-39.9) Is this a current diagnosis for this admission?: Yes Plan: BMI is 34. Suggest adherence to consistent carbohydrate, low-salt and low-fat diet as an outpatient. Weight loss would certainly benefit her cardiac status. - Time Time Spent with patient: 15-24 minutes Medications reviewed and adjusted accordingly: Yes Anticipated discharge: Home Within: within 24 hours
[2018-07-02] MEDS: ATORVASTATIN CALCIUM 80 MG TABLET PO SCH (22:13)
[2018-07-02] MEDS: INSULIN GLARGINE,HUM.REC.ANLOG 1,000 UNIT/10 ML VIAL SUBCUT SCH (22:13)
[2018-07-03 07:10] LABS: ANION GAP 5 (5-19); BLOOD UREA NITROGEN 24 mg/dL (7-20); CALCIUM 9.5 mg/dL (8.4-10.2); CARBON DIOXIDE 24 mmol/L (22-30); CHLORIDE 110 mmol/L (98-107); GLUCOSE 133 mg/dL (75-110); POTASSIUM 4.3 mmol/L (3.6-5.0); SODIUM 139.3 mmol/L (137-145)
[2018-07-03] MEDS: INSULIN LISPRO 100 UNIT/ML 3 ML VIAL SUBCUT SCH ×4 (08:33→13:01)
[2018-07-03] MEDS ORDERED: FUROSEMIDE 40 MG TABLET PO SCH (10:00)
[2018-07-03] MEDS: FLUTICASONE/VILANTEROL 200-25 MCG/DOSE IH SCH (10:00)
[2018-07-03] MEDS: LISINOPRIL 5 MG TABLET PO SCH (10:01)
[2018-07-03] MEDS: METOPROLOL SUCCINATE 25 MG TAB.SR.24H PO SCH (10:01)
[2018-07-03 15:06] VITALS: BP 145/70
--- NOTE | 2018-07-04 06:38 | PDOC DISCHARGE SUMMARY ---
General - Admit/Disc Date/PCP Admission Date/Primary Care Provider: 06/28/18 17:01 MEGAN BARDLEY PA-C Discharge Date: 07/03/18 - Discharge Diagnosis (1) Acute on chronic respiratory failure with hypoxemia Is this a current diagnosis for this admission?: Yes Summary: The patient has a history of chronic obstructive pulmonary disease and is supposed to be on oxygen at home. She is not compliant with her oxygen. She was also noncompliant with her furosemide therapy. The respiratory failure was secondary to congestive heart failure. She will discharge back to home on her oxygen. She was encouraged to be compliant with her oxygen therapy as well as her medications. (2) Acute exacerbation of CHF (congestive heart failure) Is this a current diagnosis for this admission?: Yes Summary: The patient has a history of systolic heart failure with depressed ejection fraction. She was noncompliant with her medications. Now that she is back on furosemide and has been diuresed she is feeling much better. She still has trace edema in her lower extremities. She is not likely to be compliant with compression stockings but I did encourage her to elevate her legs multiple times during the day. I also encouraged her to weigh herself daily and reports significant weight changes to her physician. (3) Inayx-um-mpigfun kidney injury Is this a current diagnosis for this admission?: Yes Summary: Her baseline is stage III kidney failure. On admission her serum creatinine was slightly increased from baseline but is now back at baseline. The acute injury was likely due to the acute heart failure. (4) Diabetes mellitus Is this a current diagnosis for this admission?: Yes Summary: Her Accu-Cheks during this admission were in fact quite good. This is despite steroid therapy. She did receive new prescriptions for her insulin therapy. She should continue with a carbohydrate consistent cardiac diet. (5) Obesity (BMI 30-39.9) Is this a current diagnosis for this admission?: Yes Summary: Her obesity increases her risk with her underlying comorbidities including heart failure, diabetes, hypertension and COPD. Continue consistent carbohydrate cardiac diet. - Additional Information Resuscitation Status: Full Code Discharge Diet: Cardiac, Diabetic Discharge Activity: Activity As Tolerated, Balance Activity w/Rest, Weigh Daily Prescriptions: Amlodipine Besylate [Norvasc 5 mg Tablet] 5 mg PO DAILY 14 Days #14 tablet Atorvastatin Calcium [Lipitor 80 mg Tablet] 80 mg PO QHS 14 Days #14 tablet Furosemide [Lasix 40 mg Tablet] 40 mg PO DAILY 14 Days #14 tablet Insulin Glargine,Hum.rec.anlog [Basaglar Kwikpen U-100] 55 units SQ QHS 14 Days #3 insuln.pen Insulin Aspart [Novolog Flexpen] 20 units SQ ASDIR 14 Days #1 insuln.pen Lisinopril [Zestril] 5 mg PO DAILY 14 Days #14 tablet Metoprolol Succinate [Toprol Xl 25 mg Tab.sr] 25 mg PO Q12 14 Days #28 tab.sr.24h Paroxetine HCl [Paxil] 10 mg PO DAILY 14 Days #14 tablet Home Medications: Budesonide/Formoterol Fumarate [Symbicort HFA 160-4.5 mcg Inhaler 6 gm] 2 puff IH Q12 06/28/18 Ergocalciferol (Vitamin D2) [Drisdol 50,000 unit (1.25MG) Capsule] 50,000 unit PO MO 06/28/18 Gabapentin [Neurontin] 800 mg PO Q8 06/28/18 Oxycodone HCl/Acetaminophen [Percocet 7.5-325 mg Tablet] 1 tab PO Q6HP PRN 06/28/18 Amlodipine Besylate [Norvasc 5 mg Tablet] 5 mg PO DAILY 14 Days #14 tablet 07/03/18 Atorvastatin Calcium [Lipitor 80 mg Tablet] 80 mg PO QHS tablet 07/03/18 Atorvastatin Calcium [Lipitor 80 mg Tablet] 80 mg PO QHS 14 Days #14 tablet 07/03/18 Furosemide [Lasix 40 mg Tablet] 40 mg PO DAILY 14 Days #14 tablet 07/03/18 Insulin Aspart [Novolog Flexpen] 20 units SQ ASDIR 14 Days #1 insuln.pen 07/03/18 Insulin Glargine,Hum.rec.anlog [Basaglar Kwikpen U-100] 55 units SQ QHS 14 Days #3 insuln.pen 07/03/18 Insulin Glargine,Hum.rec.anlog [Lantus Insulin 100 Unit/1 ml 10 ml] 55 unit SUBC UT QHS unit 07/03/18 Lisinopril [Prinivil 5 mg Tablet] 5 mg PO DAILY tablet 07/03/18 Lisinopril [Zestril] 5 mg PO DAILY 14 Days #14 tablet 07/03/18 Metoprolol Succinate [Toprol Xl 25 mg Tab.sr] 25 mg PO Q12 14 Days #28 tab.sr.24h 07/03/18 Paroxetine HCl [Paxil] 10 mg PO DAILY 14 Days #14 tablet 07/03/18 History of Present Illness Patient complains of: Increased shortness of breath. History of Present Illness: EDUARDA JARRELL is a 67 year old female with a history of depressed ejection fraction systolic heart failure, diabetes mellitus with long-term insulin use, chronic obstructive pulmonary disease and hypertension. She reported to the admitting physician that someone told her to stop her Lasix. She cannot rememb er who. Examination she was found to increase jugular venous distention and rales bilaterally. She was referred to the hospitalist service for admission. Hospital Course Hospital Course: Details as above. It took several days to diurese her back to what is likely her baseline. Her breathing was improved and she was discharged home. She was given prescriptions for all of her medications as she could not remember what she had supplies for or not. They were electronically sent to [facility]. Physical Exam Vital Signs: Temp Pulse Resp BP Pulse Ox 98.1 F 74 16 142/76 H 92 07/03/18 12:18 07/03/18 12:18 07/03/18 12:18 07/03/18 12:18 07/03/18 12:18 Intake & Output 07/02/18 07/03/18 07/04/18 06:59 06:59 06:59 Intake Total 1160 4000 Output Total 2700 6000 Balance -1540 -2000 Weight 101.6 kg 101.6 kg General appearance: PRESENT: no acute distress, cooperative, obese, well- developed Head exam: PRESENT: atraumatic, normocephalic Eye exam: PRESENT: conjunctiva pink. ABSENT: scleral icterus Respiratory exam: PRESENT: clear to auscultation rodrigue, symmetrical, unlabored. ABSENT: accessory muscle use, rales, rhonchi, tachypnea, wheezes Cardiovascular exam: PRESENT: RRR, +S1, +S2 GI/Abdominal exam: PRESENT: normal bowel sounds, soft. ABSENT: distended, tenderness Rectal exam: PRESENT: deferred Gentrourinary exam: ABSENT: indwelling catheter Extremities exam: PRESENT: pedal edema - Trace pedal edema Musculoskeletal exam: PRESENT: ambulatory Neurological exam: PRESENT: alert, awake, oriented to person, oriented to place, oriented to time, oriented to situation, CN II-XII grossly intact Psychiatric exam: PRESENT: appropriate affect, normal mood. ABSENT: agitated, anxious Focused psych exam: ABSENT: delusional, restlessness Results Laboratory Results: 06/28/18 11:00 07/03/18 06:19 07/03/18 06:19 Sodium 139.3 Potassium 4.3 Chloride 110 H Carbon Dioxide 24 Anion Gap 5 BUN 24 H Creatinine 1.20 Est GFR ( Amer) 55 L Est GFR (Non-Af Amer) 45 L Glucose 133 H Calcium 9.5 06/28/18 06/29/18 06/30/18 11:00 09:50 08:22 NT-Pro-B Natriuret Pep 67613 H 6140 H 4750 H Impressions: Chest X-Ray 07/01/18 00:00 IMPRESSION: Cardiomegaly with mild pulmonary edema. Cannot exclude left lower lobe pneumonia. Qualifiers - * PATIENT BEING DISCHARGED WITH ANY OF THE FOLLOWING DIAGNOSIS: Heart Failure HF Pt being discharged on ACEI for LVEF less than 40%?: Yes HF Pt being discharged on ARBS for LVEF less than 40%?: No Reason(s) for not prescribing ARBS:: Tx not tolerated, Drug declined by patient HF Pt with Afib discharged with Warfarin?: No Reason(s) for not prescribing Warfarin:: Not indicated HF Pt discharged on evidence-based Beta Liza:: Yes Plan Discharge Plan: 40 minutes spent on discharge. Patient instructed to follow-up with her primary care provider. Time Spent: Greater than 30 Minutes
== END 2018-07-03 15:34 | disposition home health service (06) | DRG 189 ==
LOC: ER 10:04 → EH 17:01 → 5 18:11
PROVIDERS: ADMIT Family Medicine; ATTEND Family Medicine
PROC: 3E0F73Z Introduction of Anti-inflammatory into Respiratory Tract, Via Natural or Artificial Opening (ICD-10-PCS; principal; 2018-06-28)
DX: J96.21 Acute and chronic respiratory failure with hypoxia (principal); I50.23 Acute on chronic systolic (congestive) heart failure; N17.9 Acute kidney failure, unspecified; I13.0 Hypertensive heart and chronic kidney disease with heart failure and stage 1 through stage 4 chronic kidney disease, or unspecified chronic kidney disease; N18.3 Chronic kidney disease, stage 3 (moderate); E11.22 Type 2 diabetes mellitus with diabetic chronic kidney disease; E66.9 Obesity, unspecified; J44.9 Chronic obstructive pulmonary disease, unspecified; F32.9 Major depressive disorder, single episode, unspecified; E78.5 Hyperlipidemia, unspecified; Z68.34 Body mass index [BMI] 34.0-34.9, adult; Z79.899 Other long term (current) drug therapy; Z79.4 Long term (current) use of insulin; Z79.891 Long term (current) use of opiate analgesic; Z99.81 Dependence on supplemental oxygen; Z87.891 Personal history of nicotine dependence; Z82.49 Family history of ischemic heart disease and other diseases of the circulatory system; Z83.3 Family history of diabetes mellitus
CPT/HCPCS: 36415; 71045; 80048; 80053; 82803; 82962; 83880; 85025; 93005; 93010; 94640; 96361; 96365; 96375; 99285; J1815; J1885; J1940; J3475; J3490; J7030; J7620

== ENCOUNTER → 2018-09-20 | Outpatient (CLI) | payer MEDICARE, MEDICAID ==
[2018-09-20 13:11] LABS: HEMATOCRIT 41.1 % (36.0-47.0); HEMOGLOBIN 12.9 g/dL (12.0-15.5); MEAN CORPUSCULAR HEMOGLOBIN 25.8 pg (27.0-33.4); MEAN CORPUSCULAR HGB CONC 31.4 g/dL (32.0-36.0); MEAN CORPUSCULAR VOLUME 82 fl (80-97); PLATELET COUNT 197 10^3/uL (150-450); RED CELL DISTRIBUTION WIDTH 17.8 % (11.5-14.0); WHITE BLOOD COUNT 6.7 10^3/uL (4.0-10.5)
[2018-09-20 13:19] LABS: APPEARANCE,URINE CLOUDY; BILIRUBIN,URINE NEGATIVE (NEGATIVE); COLOR,URINE YELLOW; GLUCOSE, URINE 50 mg/dL (NEGATIVE); KETONES,URINE NEGATIVE (NEGATIVE); LEUKOCYTE ESTERASE,URINE LARGE (NEGATIVE); NITRITE,URINE NEGATIVE (NEGATIVE); PROTEIN,URINE >=500 mg/dL (NEGATIVE); URINE SPECIFIC GRAVITY 1.015; UROBILINOGEN,URINE NEGATIVE mg/dL (<2.0)
[2018-09-20 13:51] LABS: ANION GAP 7 (5-19); BLOOD UREA NITROGEN 21 mg/dL (7-20); CALCIUM 9.2 mg/dL (8.4-10.2); CARBON DIOXIDE 27 mmol/L (22-30); CHLORIDE 111 mmol/L (98-107); GLUCOSE 71 mg/dL (75-110); POTASSIUM 4.3 mmol/L (3.6-5.0); SODIUM 144.5 mmol/L (137-145)
[2018-09-20 14:58] LABS: UR PRO/CREAT RATIO RESULT 12.4 mg/mg (0.0-0.2); URINE CREATININE 80.9 mg/dL (15-278); URINE PROTEIN 1000.6 mg/dL (<12)
== END ==
LOC: OD 12:45
PROVIDERS: ATTEND Physician Assistant Medical
DX: I12.9 Hypertensive chronic kidney disease with stage 1 through stage 4 chronic kidney disease, or unspecified chronic kidney disease (principal); N18.3 Chronic kidney disease, stage 3 (moderate); R80.9 Proteinuria, unspecified
CPT/HCPCS: 36415; 80048; 81001; 82570; 84156; 85027

== ENCOUNTER 2018-11-04 11:16 | Emergency (ER) | payer MEDICARE, MEDICAID ==
--- NOTE | 2018-11-04 11:52 | ER Document Report ---
ED Medical Screen (RME) - General Chief Complaint: Fall Stated Complaint: STOMACH PAIN Time Seen by Provider: 11/04/18 11:38 Primary Care Provider: HEATHER JIMÉNEZ PA-C [Primary Care Provider] - Follow up as needed Mode of Arrival: Wheelchair Information source: Patient Notes: Patient is a 68-year-old female presenting with complaints of right knee pain, abdominal pain and all over body pain after she fell last week. Patient denies any nausea, vomiting, diarrhea or fevers. Exam: Tenderness to palpation to right anterior knee. I have greeted and performed a rapid initial assessment of this patient. A comprehensive ED assessment and evaluation of the patient, analysis of test results and completion of the medical decision making process will be conducted by additional ED providers. I have specifically instructed the patient or family members with the patient to immediately return to any nursing staff should anything change in the patient's condition or with their chief complaint. This medical record was dictated with voice recognizing software. There may be grammatical, syntax errors that are unintended. TRAVEL OUTSIDE OF THE [place] IN LAST 30 DAYS: No - Related Data Allergies/Adverse Reactions: No Known Allergies Allergy (Verified 06/28/18 10:09) Past Medical History - Past Medical History Cardiac Medical History: Reports: Hx Congestive Heart Failure, Hx Hypercholesterolemia, Hx Hypertension Pulmonary Medical History: Reports: Hx Asthma, Hx COPD Denies: Hx Tuberculosis Neurological Medical History: Denies: Hx Seizures Endocrine Medical History: Reports: Hx Diabetes Mellitus Type 2. Denies: Hx Diabetes Mellitus Type 1, Hx Hyperthyroidism, Hx Hypothyroidism Renal/ Medical History: Denies: Hx Peritoneal Dialysis GI Medical History: Denies: Hx Cirrhosis, Hx Crohn's Disease, Hx Hepatitis, Hx Ulcerative Colitis Musculoskeltal Medical History: Denies Hx Arthritis, Denies Hx Gout Skin Medical History: Denies Hx Eczema, Denies Hx Psoriasis Psychiatric Medical History: Reports: Hx Depression Infectious Medical History: Denies: Hx Hepatitis Past Surgical History: Reports: Hx Appendectomy, Hx Section - x2, Hx Orthopedic Surgery - toe - Immunizations Immunizations up to date: Yes Hx Diphtheria, Pertussis, Tetanus Vaccination: Yes - 2011 History of Influenza Vaccine for 12/2016 - 05/2017 Season: Yes Influenza Administration Date for 12/2016 - 05/2017 Season: 01/30/17 Physical Exam - Vital signs Vitals: Temp Pulse Resp BP Pulse Ox 97.6 F 68 20 151/72 H 96 11/04/18 11:25 11/04/18 11:25 11/04/18 11:25 11/04/18 11:25 11/04/18 11:25 Course - Vital Signs Vital signs: Temp Pulse Resp BP Pulse Ox 97.6 F 68 20 151/72 H 96 11/04/18 11:25 11/04/18 11:25 11/04/18 11:25 11/04/18 11:25 11/04/18 11:25 Doctor's Discharge - Discharge Referrals: HEATHER JIMÉNEZ PA-C [Primary Care Provider] - Follow up as needed
--- NOTE | 2018-11-04 12:41 | RADIOLOGY REPORT (SQ) ---
EXAM DESCRIPTION: KNEE RIGHT 4 VIEWS COMPLETED DATE/TIME: 11/04/2018 12:04 pm REASON FOR STUDY: fall COMPARISON: 03/19/2014 NUMBER OF VIEWS: Four views. TECHNIQUE: AP, lateral, and both oblique radiographic images acquired of the right knee. LIMITATIONS: None. FINDINGS: MINERALIZATION: Normal. BONES: No acute fracture or dislocation. No worrisome bone lesions. Incidental benign enchondroma o r other benign lesion of the distal right femur unchanged from prior dated 2014. JOINT: No effusion. SOFT TISSUES: No soft tissue swelling. No radio-opaque foreign body. OTHER: No other significant finding. IMPRESSION: NEGATIVE STUDY OF THE RIGHT KNEE. NO RADIOGRAPHIC EVIDENCE OF ACUTE INJURY. TECHNICAL DOCUMENTATION: JOB ID: [id number] [employer]- All Rights Reserved Reading location - IP/workstation name: [email or web address]
--- NOTE | 2018-11-04 13:23 | ER Document Report ---
ED General - General Chief Complaint: Fall Stated Complaint: STOMACH PAIN Time Seen by Provider: 11/04/18 11:38 Primary Care Provider: HEATHER JIMÉNEZ PA-C [ALLIED HEALTH PROFESSIONAL] - Follow up as needed Mode of Arrival: Wheelchair Notes: 68-year-old female with multiple medical comorbidities presents to the emergency department with chief complaint of left knee pain abdominal pain after a fall over 1 week ago. Patient states that "it hurts when I rolled to the right hurts when I rolled to the left to get out of bed" and "I can barely walk on my me and I keep falling". Patient denies any acute, focal abdominal pain, denies any dizziness/lightheadedness/weakness/syncopal episodes. Patient states that she has tenderness over the anterior aspect of the knee. Patient states that she does have baseline diabetic neuropathy and has reduced sensation in her right lower extremity. No other complaints. TRAVEL OUTSIDE OF THE [place] IN LAST 30 DAYS: No - Related Data Allergies/Adverse Reactions: No Known Allergies Allergy (Verified 06/28/18 10:09) Past Medical History - General Information source: Patient - Social History Smoking Status: Never Smoker Frequency of alcohol use: None Family History: Reviewed & Not Pertinent, CAD, DM Patient has suicidal ideation: No Patient has homicidal ideation: No - Past Medical History Cardiac Medical History: Reports: Hx Congestive Heart Failure, Hx Hypercholesterolemia, Hx Hypertension Pulmonary Medical History: Reports: Hx Asthma, Hx COPD Denies: Hx Tuberculosis Neurological Medical History: Denies: Hx Seizures Endocrine Medical History: Reports: Hx Diabetes Mellitus Type 2. Denies: Hx Diabetes Mellitus Type 1, Hx Hyperthyroidism, Hx Hypothyroidism Renal/ Medical History: Denies: Hx Peritoneal Dialysis GI Medical History: Denies: Hx Cirrhosis, Hx Crohn's Disease, Hx Hepatitis, Hx Ulcerative Colitis Musculoskeletal Medical History: Denies Hx Arthritis, Denies Hx Gout Skin Medical History: Denies Hx Eczema, Denies Hx Psoriasis Psychiatric Medical History: Reports: Hx Depression Infectious Medical History: Denies: Hx Hepatitis Past Surgical History: Reports: Hx Appendectomy, Hx Section - x2, Hx Orthopedic Surgery - toe - Immunizations Immunizations up to date: Yes Hx Diphtheria, Pertussis, Tetanus Vaccination: Yes - 2011 Hx Pneumococcal Vaccination: 12/17/10 Review of Systems - Review of Systems Constitutional: See HPI EENT: No symptoms reported Cardiovascular: No symptoms reported Respiratory: No symptoms reported Gastrointestinal: See HPI Genitourinary: No symptoms reported Female Genitourinary: No symptoms reported Musculoskeletal: See HPI Skin: No symptoms reported Hematologic/Lymphatic: No symptoms reported Neurological/Psychological: No symptoms reported Physical Exam - Vital signs Vitals: Temp Pulse Resp BP Pulse Ox 97.6 F 68 20 151/72 H 96 11/04/18 11:25 11/04/18 11:25 11/04/18 11:25 11/04/18 11:25 11/04/18 11:25 - Notes Notes: PHYSICAL EXAMINATION: Reviewed vital signs and charting by RN GENERAL: Alert, interacts well. No acute distress. HEAD: Normocephalic, atraumatic. EYES: Pupils equal and round. Extraocular movements intact. ENT: Oral mucosa moist, tongue midline. NECK: Full range of motion. Trachea midline. LUNGS: Clear to auscultation bilaterally, no wheezes, rales, or rhonchi. No respiratory distress. HEART: Regular rate and rhythm. No murmur ABDOMEN: soft, non-tender. No distention. Bowel sounds present EXTREMITIES: Moves all 4 extremities spontaneously. Very mild edema over the right anterior knee with mild tenderness to palpation, good range of motion patient is able to bend her knee PSYCH: Normal affect, normal mood. SKIN: Warm, dry, normal turgor. No rashes or lesions noted. Course - Re-evaluation Re-evalutation: 11/04/18 13:20 Patient presents post fall 1 week ago. Patient has multiple vague complaints, abdomen is soft and when she was distracted I was not able to elicit any tenderness or involuntary guarding. X-ray was done of the right knee which showed no internal derangements that were obvious, no, no fracture. At this time, although patient has medical comorbidities, I do not feel that we need to obtain lab work as she is stable and has no evidence of an acute anemia or any symptoms concerning for internal bleeding. I instructed patient that she needs to follow-up with her primary doctor, she has an appointment on November 12 and I recommended that she call and try to get a sooner appointment. Patient understands and has been given strict return precautions. She is stable for discharge. - Vital Signs Vital signs: Temp Pulse Resp BP Pulse Ox 97.6 F 68 20 151/72 H 96 11/04/18 11:25 11/04/18 11:25 11/04/18 11:25 11/04/18 11:25 11/04/18 11:25 Discharge - Discharge Clinical Impression: Body aches Right knee pain Qualifiers: Chronicity: acute Qualified Code(s): M25.561 - Pain in right knee Condition: Good Disposition: HOME, SELF-CARE Additional Instructions: You were seen in the emergency department this morning for knee pain after a fall over 1 week ago. X-ray did not show any concerning findings like a fracture dislocation. Also, there is no concerning findings on physical exam that we will be concerned about internal bleeding at this time. Please pay attention if you become acutely dizzy, lightheaded, have acute weakness, or pass out. Also, please use your walker at all times until you see your primary doctor. We have given you an Freddie wrap to help for comfort. It is very important that you check your sugars every day to keep them at a normal, safe level. Referrals: HEATHER JIMÉNEZ PA-C [ALLIED HEALTH PROFESSIONAL] - Follow up as needed
[2018-11-04 14:16] VITALS: BP 150/98
== END 2018-11-04 14:15 | disposition home or self-care (01) ==
LOC: ER 11:16
DX: M79.10 Myalgia, unspecified site (principal); M25.561 Pain in right knee; M25.562 Pain in left knee; R10.9 Unspecified abdominal pain; E11.9 Type 2 diabetes mellitus without complications; I50.9 Heart failure, unspecified; E78.00 Pure hypercholesterolemia, unspecified; I11.0 Hypertensive heart disease with heart failure
CPT/HCPCS: 99283

== ENCOUNTER 2018-11-22 17:33 | Inpatient (IN) | payer MEDICARE, MEDICAID ==
[2018-11-22 20:34] LABS: ABSOLUTE BASOPHILS # (AUTO) 0.1 10^3/uL (0.0-0.2); ABSOLUTE EOSINOPHILS # (AUTO) 0.1 10^3/uL (0.0-0.6); ABSOLUTE MONOCYTES (AUTO) 0.5 10^3/uL (0.1-1.4); ABSOLUTE NEUT (AUTO) 4.6 10^3/uL (1.7-8.2); BASOPHILS % (AUTO) 0.7 % (0-2); EOSINOPHILS % (AUTO) 1.1 % (0-6); HEMATOCRIT 47.8 % (36.0-47.0); HEMOGLOBIN 14.1 g/dL (12.0-15.5); LYMPHOCYTES % (AUTO) 27.3 % (13-45); MEAN CORPUSCULAR HEMOGLOBIN 25.5 pg (27.0-33.4); MEAN CORPUSCULAR HGB CONC 29.5 g/dL (32.0-36.0); MEAN CORPUSCULAR VOLUME 86 fl (80-97); MONOCYTES % (AUTO) 6.8 % (3-13); PLATELET COUNT 212 10^3/uL (150-450); RED BLOOD COUNT 5.53 10^6/uL (3.72-5.28); RED CELL DISTRIBUTION WIDTH 19.9 % (11.5-14.0); SEGMENTED NEUTROPHILS % (AUTO) 64.1 % (42-78); TOTAL CELLS COUNTED % (AUTO) 100 %; WHITE BLOOD COUNT 7.2 10^3/uL (4.0-10.5)
[2018-11-22 20:50] LABS: ALKALINE PHOSPHATASE 199 U/L (38-126); ANION GAP 17 (5-19); ASPARTATE AMINO TRANSFERASE 29 U/L (14-36); BILIRUBIN,DIRECT 0.4 mg/dL (0.0-0.4); BILIRUBIN,TOTAL 0.5 mg/dL (0.2-1.3); BLOOD UREA NITROGEN 26 mg/dL (7-20); CALCIUM 8.6 mg/dL (8.4-10.2); CARBON DIOXIDE 17 mmol/L (22-30); CHLORIDE 89 mmol/L (98-107); CREATINE KINASE 289 U/L (30-135); POTASSIUM 3.5 mmol/L (3.6-5.0); TOTAL PROTEIN 6.1 g/dL (6.3-8.2)
[2018-11-22 21:01] LABS: CREATINE KINASE MB 5.72 ng/mL (<4.55)
[2018-11-22 21:12] LABS: GLUCOSE 1161 mg/dL (75-110); TROPONIN I 0.047 ng/mL
--- NOTE | 2018-11-22 21:21 | RADIOLOGY REPORT (SQ) ---
EXAM DESCRIPTION: XR CHEST 2 VIEWS COMPLETED DATE/TME: 11/22/2018 19:46 CLINICAL HISTORY: 68 years Female chest pain COMPARISON: 08/27/2018 FINDINGS: The cardiomediastinal silhouette appears unremarkable. No consolidating infiltrates or pleural effusions. No pneumothorax. Prominence of the central pulmonary vasculature similar to the previous study. IMPRESSION: No acute abnormality is identified. CLINICAL HISTORY: 68 years, Female, chest pain COMPARISON: None. NUMBER OF VIEWS: TECHNIQUE: LIMITATIONS: None. FINDINGS: IMPRESSION: copyright 2010 [employer]- All Rights Reserved
[2018-11-22] MEDS ORDERED: NORMAL SALINE 1000 ML 1,000 ML IV ONE (21:29)
[2018-11-22] MEDS ORDERED: NORMAL SALINE 100 ML with INSULIN REGULAR, HUMAN 100 UNIT IV PRN ×4 (21:29→23:16)
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
[2018-11-22 21:55] LABS: VENOUS BLOOD BASE EXCESS -4.5 mmol/L; VENOUS BLOOD HCO3 22.4 mmol/L (20-32); VENOUS BLOOD PCO2 47.7 mmHg (35-63); VENOUS BLOOD PH 7.29 (7.30-7.42)
[2018-11-22] MEDS ORDERED: INSULIN REG, HUMAN 100 UNIT/ML 3 ML VIAL (PYX) ONE (21:56)
[2018-11-22] MEDS ORDERED: POTASSIUM CHLORIDE 10 MEQ CAPSULE.ER PO ONE (21:56)
[2018-11-22] MEDS ORDERED: POTASSI CL 20 MEQ/NS 1L 1,000 ML IV ONE (21:59)
[2018-11-22 22:19] LABS: APPEARANCE,URINE SLIGHTLY-CLOUDY; BILIRUBIN,URINE NEGATIVE (NEGATIVE); COLOR,URINE STRAW; GLUCOSE, URINE >=500 mg/dL (NEGATIVE); KETONES,URINE NEGATIVE (NEGATIVE); LEUKOCYTE ESTERASE,URINE SMALL (NEGATIVE); NITRITE,URINE NEGATIVE (NEGATIVE); PROTEIN,URINE 100 mg/dL (NEGATIVE); URINE SPECIFIC GRAVITY 1.025; UROBILINOGEN,URINE NEGATIVE mg/dL (<2.0)
[2018-11-22] MEDS ORDERED: CEFTRIAXONE 1 GM/D5W RTU 1 GM/50 ML RTUPB IV ONE (22:23)
[2018-11-22] MEDS ORDERED: RINGERS SOLUTION,LACTATED 1,000 ML with POTASSIUM CHLORIDE 20 MEQ IV PRN ×2 (23:08)
[2018-11-22] MEDS ORDERED: DEXTROSE 40% GEL 15 GM TUBE PO PRN ×2 (23:10)
[2018-11-22] MEDS ORDERED: GLUCAGON,HUMAN RECOMB 1 MG INJ IM PRN (23:10)
[2018-11-22] MEDS ORDERED: DEXTROSE 50%-WATER 25 GM/50 ML DISP.SYRIN IV PRN ×2 (23:10)
[2018-11-22] MEDS ORDERED: MAG HYDROX/AL HYDROX/SIMETH SUSP 30 ML UDCUP PO PRN (23:11)
[2018-11-22] MEDS ORDERED: ACETAMINOPHEN 325 MG TABLET PO PRN (23:11)
[2018-11-22] MEDS ORDERED: NICOTINE 21 MG/24 HR PATCH.TD24 TD PRN (23:11)
[2018-11-22] MEDS ORDERED: MAGNESIUM HYDROXIDE SUSP 30 ML UDCUP PO PRN (23:11)
[2018-11-22] MEDS ORDERED: NALBUPHINE HCL INJ 10 MG/1 ML AMPULE IV PRN ×3 (23:11→23:49)
[2018-11-22] MEDS ORDERED: HYDRALAZINE HCL INJ/PF 20 MG/1 ML SDV IV PRN (23:11)
[2018-11-22 23:48] LABS: FREE T3 3.55 pg/mL (2.77-5.27); FREE T4 (FREE THYROXINE) 1.49 ng/dL (0.78-2.19)
[2018-11-23] MEDS ORDERED: NORMAL SALINE 100 ML with INSULIN REGULAR, HUMAN 100 UNIT IV PRN ×2 (00:24)
[2018-11-23] MEDS ORDERED: ONDANSETRON HCL INJ/PF 4 MG/2 ML SDV IV PRN (00:30)
[2018-11-23] MEDS ORDERED: ONDANSETRON 4 MG TAB.RAPDIS PO PRN (00:30)
[2018-11-23 01:32] LABS: ANION GAP 11 (5-19); BLOOD UREA NITROGEN 23 mg/dL (7-20); CALCIUM 8.4 mg/dL (8.4-10.2); CARBON DIOXIDE 22 mmol/L (22-30); CHLORIDE 98 mmol/L (98-107); POTASSIUM 3.5 mmol/L (3.6-5.0)
[2018-11-23 01:49] LABS: FREE T3 4.51 pg/mL (2.77-5.27); FREE T4 (FREE THYROXINE) 1.66 ng/dL (0.78-2.19); GLUCOSE 613 mg/dL (75-110)
[2018-11-23] MEDS ORDERED: NS IV ONE (02:06)
[2018-11-23] MEDS ORDERED: POTASSI CL IV ONE (02:06)
[2018-11-23] MEDS: POTASSI CL 20 MEQ/NS 1L 1000 ML IV PRN ×2 (02:59→05:45)
--- NOTE | 2018-11-23 03:58 | PDOC H&P ---
History of Present Illness Admission Date/PCP: 11/22/18 22:06 YAMILEX GARCIA MD Patient complains of: Malaise History of Present Illness: EDUARDA JARRELL is a 68 year old female who presented to the emergency room with a 2-day history of malaise. She admits generalized body aches and pains worsening over the last 2 days accompanied by 2 separate episodes of vomiting, poor oral fluid intake and a decreased appetite. At the present time she states the body aches and pains are severe. The patient is a poor historian but denies prior similar episodes. She further denies other associated or accompanying signs and symptoms. She has not identified any aggravating or ameliorating factors for her malaise. In the emergency room she was found to have a blood sugar of 1160 with a potassium of 3.5 and bicarbonate level of 17. She was started on intravenous insulin infusion and admitted to the [facility] for further evaluation and treatment. Past Medical History Cardiac Medical History: Reports: Congestive Heart Failure, Hyperlipidema, Hypertension Pulmonary Medical History: Reports: Asthma, Chronic Obstructive Pulmonary Diseas e (COPD) Denies: Tuberculosis EENT Medical History: Denies: Cataracts, Ears - Hearing aids Neurological Medical History: Denies: Hemorrhagic CVA, Ischemic CVA, Seizures Endocrine Medical History: Reports: Diabetes Mellitus Type 2, Obesity Denies: Diabetes Mellitus Type 1, Hyperthyroidism, Hypothyroidism Renal/ Medical History: Denies: Chronic Kidney Disease, Nephrolithiasis Malignancy Medical History: Reports: None GI Medical History: Denies: Cirrhosis, Crohn's Disease, Hepatitis, Ulcerative Colitis Musculoskeltal Medical History: Reports: Other - Chronic pain syndrome Denies: Arthritis, Gout Skin Medical History: Denies: Eczema, Psoriasis Psychiatric Medical History: Reports: Depression Denies: Alcohol Dependency, Substance Abuse, Tobacco Dependency Hematology: Denies: Anemia, Sickle Cell Disease, Bleeding Tendencies Past Surgical History Past Surgical History: Reports: Appendectomy, Section - x2, Orthopedic Surgery - toe Social History Information Source: Patient Lives with: Family Smoking Status: Never Smoker Frequency of Alcohol Use: None Hx Recreational Drug Use: No Drugs: None Hx Prescription Drug Abuse: No - Advance Directive Resuscitation Status: Full Code Surrogate healthcare decision maker:: Indu Ley Family History Family History: CAD, DM, Hypertension. denies: Malignancy Parental Family History Reviewed: Yes Children Family History Reviewed: No Sibling(s) Family History Reviewed.: Yes Medication/Allergy Home Medications: Budesonide/Formoterol Fumarate [Symbicort HFA 160-4.5 mcg Inhaler 6 gm] 2 puff IH Q12 06/28/18 Gabapentin [Neurontin] 800 mg PO Q8 06/28/18 Oxycodone HCl/Acetaminophen [Percocet 7.5-325 mg Tablet] 1 tab PO Q6HP PRN 06/28/18 Atorvastatin Calcium [Lipitor 80 mg Tablet] 80 mg PO QHS 14 Days #14 tablet 0 07/03/18 Furosemide [Lasix 40 mg Tablet] 40 mg PO DAILY 14 Days #14 tablet 07/03/18 Metoprolol Succinate [Toprol Xl 25 mg Tab.sr] 25 mg PO Q12 14 Days #28 tab.sr.24h 07/03/18 Paroxetine HCl [Paxil] 10 mg PO DAILY 14 Days #14 tablet 07/03/18 Insulin Aspart [Novolog Insulin (Aspart) 100 unit/mL] 25 unit SQ MEALS 08/28/18 Insulin Glargine,Hum.rec.anlog [Basaglar Kwikpen U-100] 60 unit SQ QHS 08/28/18 Omeprazole 40 mg PO DAILY 08/28/18 Potassium Chloride [Klor-Con 10 Meq Capsule ER] 10 meq PO DAILY 08/28/18 Sacubitril/Valsartan [Entresto 49 mg/51 mg Tablet] 1 tab PO BID #60 tablet 09/02/18 Allergies/Adverse Reactions: No Known Allergies Allergy (Verified 11/22/18 17:34) Review of Systems Constitutional: PRESENT: as per HPI, anorexia, other - Malaise with decreased oral intake of food and fluids. ABSENT: chills, fever(s) Eyes: ABSENT: visual disturbances, other - Eye pain Ears: ABSENT: hearing changes, other - Ear pain Nose, Mouth, and Throat: ABSENT: mouth pain, sore throat Cardiovascular: ABSENT: chest pain, palpitations Respiratory: ABSENT: cough, dyspnea Gastrointestinal: PRESENT: as per HPI, nausea, vomiting. ABSENT: abdominal pain, constipation, diarrhea Genitourinary: ABSENT: dysuria, hematuria Musculoskeletal: PRESENT: back pain - Chronic. ABSENT: joint swelling, muscle weakness Integumentary: ABSENT: pruritus, rash Neurological: ABSENT: confusion, convulsions, focal weakness, memory loss, syncope Psychiatric: ABSENT: anxiety, depression Endocrine: ABSENT: cold intolerance, heat intolerance Hematologic/Lymphatic: ABSENT: easy bleeding, easy bruising Allergic/Immunologic: ABSENT: seasonal rhinorrhea Physical Exam Vital Signs: Temp Pulse Resp BP Pulse Ox 98.5 F 97 18 114/68 100 11/22/18 19:34 11/22/18 19:34 11/22/18 19:34 11/22/18 19:34 11/22/18 19:34 Intake & Output 11/20/18 11/21/18 11/22/18 23:59 23:59 23:59 Weight 93.3 kg General appearance: PRESENT: no acute distress, cooperative, obese Head exam: PRESENT: atraumatic, normocephalic Eye exam: PRESENT: conjunctiva pink. ABSENT: conjunctival injection, scleral icterus Ear exam: PRESENT: normal external ear exam. ABSENT: bleeding, drainage Mouth exam: PRESENT: dry mucosa, neck supple Neck exam: ABSENT: thyromegaly, tracheal deviation Respiratory exam: PRESENT: clear to auscultation rodrigue, symmetrical, unlabored Cardiovascular exam: PRESENT: RRR. ABSENT: clicks, gallop, rubs Pulses: PRESENT: normal radial pulses, normal dorsalis pedis pul Vascular exam: PRESENT: normal capillary refill. ABSENT: pallor GI/Abdominal exam: PRESENT: normal bowel sounds, soft Rectal exam: PRESENT: deferred Extremities exam: ABSENT: joint swelling, pedal edema Musculoskeletal exam: ABSENT: deformity, dislocation Neurological exam: PRESENT: alert, oriented to person, oriented to place, oriented to time, oriented to situation, CN II-XII grossly intact. ABSENT: motor sensory deficit Psychiatric exam: PRESENT: appropriate affect, normal mood Skin exam: PRESENT: dry, intact, warm. ABSENT: jaundice, rash, urticaria Results Laboratory Results: 11/22/18 20:05 11/22/18 20:05 11/22/18 11/22/18 11/22/18 20:05 20:05 20:05 WBC 7.2 RBC 5.53 H Hgb 14.1 Hct 47.8 H MCV 86 MCH 25.5 L MCHC 29.5 L RDW 19.9 H Plt Count 212 Seg Neutrophils % 64.1 VBG pH VBG pCO2 VBG HCO3 VBG Base Excess Sodium 122.9 L Potassium 3.5 L Chloride 89 L Carbon Dioxide 17 L Anion Gap 17 BUN 26 H Creatinine 1.07 Est GFR ( Amer) > 60 Glucose 1161 H* Calcium 8.6 Magnesium 2.0 Total Bilirubin 0.5 AST 29 Alkaline Phosphatase 199 H Total Protein 6.1 L Albumin 3.0 L Lipase 69.7 Urine Color Urine Appearance Urine pH Ur Specific [place] Urine Protein Urine Glucose (UA) Urine Ketones Urine Blood Urine Nitrite Ur Leukocyte Esterase Urine WBC (Auto) Urine RBC (Auto) Urine Osmolality 11/22/18 11/22/18 11/22/18 21:35 21:58 21:58 WBC RBC Hgb Hct MCV MCH MCHC RDW Plt Count Seg Neutrophils % VBG pH 7.29 L VBG pCO2 47.7 VBG HCO3 22.4 VBG Base Excess -4.5 Sodium Potassium Chloride Carbon Dioxide Anion Gap BUN Creatinine Est GFR ( Amer) Glucose Calcium Magnesium Total Bilirubin AST Alkaline Phosphatase Total Protein Albumin Lipase Urine Color STRAW Urine Appearance SLIGHTLY-CLOUDY Urine pH 6.[address] [place] 1.025 Urine Protein 100 H Urine Glucose (UA) >=500 H Urine Ketones NEGATIVE Urine Blood SMALL H Urine Nitrite NEGATIVE Ur Leukocyte Esterase SMALL H Urine WBC (Auto) >182 Urine RBC (Auto) 1 Urine Osmolality 494 11/22/18 11/22/18 20:05 20:05 Creatine Kinase 289 H CK-MB (CK-2) 5.72 H Troponin I 0.047 Impressions: Chest X-Ray 11/22/18 19:46 IMPRESSION: No acute abnormality is identified. CLINICAL HISTORY: 68 years, Female, chest pain COMPARISON: None. NUMBER OF VIEWS: TECHNIQUE: LIMITATIONS: None. FINDINGS: IMPRESSION: copyright 2010 [employer]- All Rights Reserved Assessment and Plan - Diagnosis (1) Hyperosmolar non-ketotic state in patient with type 2 diabetes mellitus Is this a current diagnosis for this admission?: Yes Plan: Patient will be treated with intravenous insulin infusion until her blood sugar has been well controlled and her electrolytes are in an appropriate range for discontinuation of intravenous insulin therapy. Accu-Cheks will be obtained every hour and metabolic profiles will be obtained every 4 hours. (2) Diabetes mellitus type 2 in obese Is this a current diagnosis for this admission?: Yes Plan: Patient will be placed on her usual diabetic therapy and diabetic diet. Before meals and at bedtime Accu-Cheks will be obtained and hyperglycemia will be treated with a sliding scale insulin regiment, hypoglycemia will be treated with the hypoglycemic protocol. (3) Chronic combined systolic and diastolic congestive heart failure Is this a current diagnosis for this admission?: Yes Plan: Patient be continued on her usual medications for treatment of her heart failure. She will be observed clinically for any changes in her heart status during her hospital course. (4) Hypertension Qualifiers: Hypertension type: essential hypertension Qualified Code(s): I10 - Essential (primary) hypertension Is this a current diagnosis for this admission?: Yes Plan: Patient be continued on her usual antihypertensive regimen and her blood pressure be monitored closely throughout her hospital course. (5) Chronic pain Qualifiers: Chronic pain type: chronic pain syndrome Qualified Code(s): G89.4 - Chronic pain syndrome Is this a current diagnosis for this admission?: Yes Plan: Patient will be continued on her usual medications for chronic pain if they are available through our pharmacy. Additionally the patient will receive morphine sulfate 3 to 7.5 mg IV every 2 hours on an as needed basis for pain per sliding scale regimen. - Time Time Spent with patient: 25-34 minutes Medications reviewed and adjusted accordingly: Yes Anticipated discharge: Home - Inpatient Certification Based on my medical assessment, after consideration of the patient's comorbidities, presenting symptoms, or acuity I expect that the services needed warrant INPATIENT care.: Yes I certify that my determination is in accordance with my understanding of Medicare's requirements for reasonable and necessary INPATIENT services [42 CFR 412.3e].: Yes Medical Necessity: Significant Comorbidiites Make Outpatient Treatment Too Risky, Need Close Monitoring Due to Risk of Patient Decompensation, Need For IV Fluids, Need For Continuous Telemetry Monitoring, Need for Pain Control, Risk of Complication if Not Cared For in Hospital
[2018-11-23 04:43] LABS: HEMATOCRIT 40.4 % (36.0-47.0); MEAN CORPUSCULAR HEMOGLOBIN 25.3 pg (27.0-33.4); MEAN CORPUSCULAR HGB CONC 32.1 g/dL (32.0-36.0); PLATELET COUNT 210 10^3/uL (150-450); RED BLOOD COUNT 5.13 10^6/uL (3.72-5.28); WHITE BLOOD COUNT 8.1 10^3/uL (4.0-10.5)
[2018-11-23 04:48] LABS: MEAN CORPUSCULAR VOLUME 79 fl (80-97)
[2018-11-23 05:05] LABS: ALBUMIN 2.5 g/dL (3.5-5.0); ALKALINE PHOSPHATASE 143 U/L (38-126); ANION GAP 8 (5-19); ASPARTATE AMINO TRANSFERASE 24 U/L (14-36); BILIRUBIN,DIRECT 0.3 mg/dL (0.0-0.4); BILIRUBIN,TOTAL 0.3 mg/dL (0.2-1.3); BLOOD UREA NITROGEN 22 mg/dL (7-20); CALCIUM 8.5 mg/dL (8.4-10.2); CARBON DIOXIDE 23 mmol/L (22-30); CHLORIDE 104 mmol/L (98-107); CHOLESTEROL 276.26 mg/dL (0-200); GLUCOSE 242 mg/dL (75-110); POTASSIUM 3.3 mmol/L (3.6-5.0); TOTAL PROTEIN 5.4 g/dL (6.3-8.2); TRIGLYCERIDES 193 mg/dL (<150)
[2018-11-23 05:16] LABS: DIRECT LDL 151 mg/dL (<100)
[2018-11-23] MEDS: PANTOPRAZOLE SODIUM 40 MG TABLET.DR PO SCH ×2 (05:18→17:40)
[2018-11-23] MEDS: GABAPENTIN 400 MG CAPSULE PO SCH ×3 (05:18→21:26)
[2018-11-23] MEDS: HEPARIN SOD (PORCINE) 5,000 UNIT/ML 1 ML VIAL SUBCUT SCH ×3 (05:18→21:28)
[2018-11-23 05:19] LABS: VLDL CHOLESTEROL 38.6 mg/dL (10-31)
[2018-11-23] MEDS ORDERED: POTASSI CL 20 MEQ/50 ML RIDER 20 MEQ/50 ML RTUPB IV SCH (07:30)
[2018-11-23] MEDS ORDERED: DEXTROSE 50%-WATER 25 GM/50 ML DISP.SYRIN IV PRN ×2 (07:31)
[2018-11-23] MEDS ORDERED: GLUCAGON,HUMAN RECOMB 1 MG INJ IM PRN (07:31)
[2018-11-23] MEDS ORDERED: DEXTROSE 40% GEL 15 GM TUBE PO PRN ×2 (07:31)
[2018-11-23] MEDS: POTASSI CL 20 MEQ/NS 1L 1,000 ML IV PRN ×3 (07:58→23:33)
[2018-11-23] MEDS: FAMOTIDINE 20 MG TABLET PO SCH ×4 (07:58→21:26)
[2018-11-23] MEDS: SUCRALFATE 1 GM TABLET PO SCH ×4 (07:58→21:26)
[2018-11-23] MEDS: POTASSIUM CHLORIDE 10 MEQ CAPSULE.ER PO SCH ×3 (07:58→17:40)
[2018-11-23] MEDS: METOCLOPRAMIDE HCL 10 MG TABLET PO SCH ×4 (07:59→21:26)
[2018-11-23] MEDS ORDERED: INSULIN REG, HUMAN 100 UNIT/ML 3 ML VIAL (PYX) SUBCUT SCH (08:00)
[2018-11-23] MEDS: INSULIN REG, HUMAN 100 UNIT/ML 3 ML VIAL (PYX) SUBCUT SCH ×4 (08:03→21:25)
[2018-11-23] MEDS: OXYCODONE HCL IR 5 MG TABLET PO PRN (08:25)
--- NOTE | 2018-11-23 08:27 | PDOC PROGRESS REPORT ---
Subjective Progress Note for:: 11/23/18 Subjective:: 68 year old female who presented to the emergency room with a 2-day history of malaise. She admits generalized body aches and pains worsening over the last 2 days accompanied by 2 separate episodes of vomiting, poor oral fluid intake and a decreased appetite. At the present time she states the body aches and pains are severe. The patient is a poor historian but denies prior similar episodes. She further denies other associated or accompanying signs and symptoms. She has not identified any aggravating or ameliorating factors for her malaise. In the emergency room she was found to have a blood sugar of 1160 with a potassium of 3.5 and bicarbonate level of 17. She was started on intravenous insulin infusion and admitted to the [facility] for further evaluation and treatment. 11/23/[id number]-old female admitted with uncontrolled diabetes mellitus blood sugar at the time of admission is 1100 not in DKA. She was started on IV fluids will insulin drip blood sugars drop less than 200 this morning she was on a diabetic diet insulin drip was discontinued IV fluids are decreased to 150 cc/h because of history of combined systolic and diastolic heart failure and started on Lantus 25 units twice a day and insulin sliding scale. Latest blood sugar is 353. More alert more awake communicating well complaining of right knee pain she said she fell 3 weeks ago came to the emergency room at that time she is not sure what she was told and she is requesting for x-rays again today. No acute events since the admission. Reason For Visit: SEVERE HYPERGLYCEMIA Physical Exam Vital Signs: Temp Pulse Resp BP Pulse Ox 98.0 F 73 18 112/72 95 11/23/18 03:16 11/23/18 06:47 11/23/18 03:16 11/23/18 03:16 11/23/18 03:16 Intake & Output 11/22/18 11/23/18 11/24/18 06:59 06:59 06:59 Intake Total 3383 749 Output Total 2800 Balance 583 749 Weight 93.1 kg General appearance: PRESENT: no acute distress, cooperative Head exam: PRESENT: atraumatic Eye exam: PRESENT: PERRLA Mouth exam: PRESENT: moist, tongue midline Teeth exam: PRESENT: poor dentation Neck exam: ABSENT: carotid bruit, JVD, lymphadenopathy, thyromegaly Respiratory exam: PRESENT: decreased breath sounds Cardiovascular exam: PRESENT: RRR. ABSENT: diastolic murmur, rubs, systolic murmur GI/Abdominal exam: PRESENT: normal bowel sounds, soft. ABSENT: distended, guarding, mass, organolmegaly, rebound, tenderness Extremities exam: PRESENT: full ROM. ABSENT: calf tenderness, clubbing, pedal edema Neurological exam: PRESENT: alert, awake, oriented to person, oriented to place, oriented to time, oriented to situation, CN II-XII grossly intact. ABSENT: motor sensory deficit Psychiatric exam: PRESENT: appropriate affect, normal mood. ABSENT: homicidal i deation, suicidal ideation Results Laboratory Results: 11/23/18 04:28 11/23/18 04:28 11/22/18 11/22/18 11/22/18 20:05 20:05 20:05 WBC 7.2 RBC 5.53 H Hgb 14.1 Hct 47.8 H MCV 86 MCH 25.5 L MCHC 29.5 L RDW 19.9 H Plt Count 212 Seg Neutrophils % 64.1 VBG pH VBG pCO2 VBG HCO3 VBG Base Excess Sodium 122.9 L Potassium 3.5 L Chloride 89 L Carbon Dioxide 17 L Anion Gap 17 BUN 26 H Creatinine 1.07 Est GFR ( Amer) > 60 Glucose 1161 H* Serum Osmolality Calcium 8.6 Magnesium 2.0 Total Bilirubin 0.5 AST 29 Alkaline Phosphatase 199 H Total Protein 6.1 L Albumin 3.0 L Triglycerides Cholesterol LDL Cholesterol Direct VLDL Cholesterol HDL Cholesterol Lipase 69.7 TSH Free T4 Free T3 pg/mL Urine Color Urine Appearance Urine pH Ur Specific [place] Urine Protein Urine Glucose (UA) Urine Ketones Urine Blood Urine Nitrite Ur Leukocyte Esterase Urine WBC (Auto) Urine RBC (Auto) Urine Osmolality 11/22/18 11/22/18 11/22/18 21:35 21:58 21:58 WBC RBC Hgb Hct MCV MCH MCHC RDW Plt Count Seg Neutrophils % VBG pH 7.29 L VBG pCO2 47.7 VBG HCO3 22.4 VBG Base Excess -4.5 Sodium Potassium Chloride Carbon Dioxide Anion Gap BUN Creatinine Est GFR ( Amer) Glucose Serum Osmolality Calcium Magnesium Total Bilirubin AST Alkaline Phosphatase Total Protein Albumin Triglycerides Cholesterol LDL Cholesterol Direct VLDL Cholesterol HDL Cholesterol Lipase TSH Free T4 Free T3 pg/mL Urine Color STRAW Urine Appearance SLIGHTLY-CLOUDY Urine pH 6.0 Ur Specific [place] 1.025 Urine Protein 100 H Urine Glucose (UA) >=500 H Urine Ketones NEGATIVE Urine Blood SMALL H Urine Nitrite NEGATIVE Ur Leukocyte Esterase SMALL H Urine WBC (Auto) >182 Urine RBC (Auto) 1 Urine Osmolality 494 11/22/18 11/22/18 11/23/18 22:19 22:19 00:17 WBC RBC Hgb Hct MCV MCH MCHC RDW Plt Count Seg Neutrophils % VBG pH VBG pCO2 VBG HCO3 VBG Base Excess Sodium 131.2 L Potassium 3.5 L Chloride 98 Carbon Dioxide 22 Anion Gap 11 BUN 23 H Creatinine 0.98 Est GFR ( Amer) > 60 Glucose 613 H* Serum Osmolality 313 H Calcium 8.4 Magnesium Total Bilirubin AST Alkaline Phosphatase Total Protein Albumin Triglycerides Cholesterol LDL Cholesterol Direct VLDL Cholesterol HDL Cholesterol Lipase TSH Free T4 1.49 Free T3 pg/mL 3.55 Urine Color Urine Appearance Urine pH Ur Specific [place] Urine Protein Urine Glucose (UA) Urine Ketones Urine Blood Urine Nitrite Ur Leukocyte Esterase Urine WBC (Auto) Urine RBC (Auto) Urine Osmolality 11/23/18 11/23/18 11/23/18 00:17 04:28 04:28 WBC 8.1 RBC 5.13 Hgb 13.0 Hct 40.4 MCV 79 L D MCH 25.3 L MCHC 32.1 RDW 19.0 H Plt Count 210 Seg Neutrophils % VBG pH VBG pCO2 VBG HCO3 VBG Base Excess Sodium 135.4 L Potassium 3.3 L Chloride 104 Carbon Dioxide 23 Anion Gap 8 BUN 22 H Creatinine 1.07 Est GFR ( Amer) > 60 Glucose 242 H Serum Osmolality Calcium 8.5 Magnesium 1.9 Total Bilirubin 0.3 AST 24 Alkaline Phosphatase 143 H Total Protein 5.4 L Albumin 2.5 L Triglycerides 193 H Cholesterol 276.26 H LDL Cholesterol Direct 151 H VLDL Cholesterol 38.6 H HDL Cholesterol 74 Lipase TSH Free T4 1.66 Free T3 pg/mL 4.51 Urine Color Urine Appearance Urine pH Ur Specific [place] Urine Protein Urine Glucose (UA) Urine Ketones Urine Blood Urine Nitrite Ur Leukocyte Esterase Urine WBC (Auto) Urine RBC (Auto) Urine Osmolality 11/23/18 04:28 WBC RBC Hgb Hct MCV MCH MCHC RDW Plt Count Seg Neutrophils % VBG pH VBG pCO2 VBG HCO3 VBG Base Excess Sodium Potassium Chloride Carbon Dioxide Anion Gap BUN Creatinine Est GFR ( Amer) Glucose Serum Osmolality Calcium Magnesium Total Bilirubin AST Alkaline Phosphatase Total Protein Albumin Triglycerides Cholesterol LDL Cholesterol Direct VLDL Cholesterol HDL Cholesterol Lipase TSH 2.58 Free T4 Free T3 pg/mL Urine Color Urine Appearance Urine pH Ur Specific [place] Urine Protein Urine Glucose (UA) Urine Ketones Urine Blood Urine Nitrite Ur Leukocyte Esterase Urine WBC (Auto) Urine RBC (Auto) Urine Osmolality 11/22/18 11/22/18 20:05 20:05 Creatine Kinase 289 H CK-MB (CK-2) 5.72 H Troponin I 0.047 Impressions: Chest X-Ray 11/22/18 19:46 IMPRESSION: No acute abnormality is identified. CLINICAL HISTORY: 68 years, Female, chest pain COMPARISON: None. NUMBER OF VIEWS: TECHNIQUE: LIMITATIONS: None. FINDINGS: IMPRESSION: copyright 2010 [employer]- All Rights Reserved Assessment and Plan - Diagnosis (1) Hyperosmolar non-ketotic state in patient with type 2 diabetes mellitus Is this a current diagnosis for this admission?: Yes Plan: Patient will be treated with intravenous insulin infusion until her blood sugar has been well controlled and her electrolytes are in an appropriate range for discontinuation of intravenous insulin therapy. Accu-Cheks will be obtained every hour and metabolic profiles will be obtained every 4 hours. 11/23/18-patient admitted with hyperosmolar nonketotic state secondary to type 2 diabetes mellitus hemoglobin A1c is 14. Latest blood sugar 353. Presently on a diabetic diet IV fluids normal saline at 150 cc/h with potassium supplementation insulin sliding scale before meals and at bedtime and also Lantus 25 units twice a day. Dietary consult will be requested. Diet compliance with medication was advised. (2) Hypokalemia Is this a current diagnosis for this admission?: Yes Plan: 11/23/2018-serum potassium is 3.3 patient is receiving IV potassium supplementation. (3) Urinary tract infection Qualifiers: Urinary tract infection type: site unspecified Hematuria presence: without hematuria Qualified Code(s): N39.0 - Urinary tract infection, site not specified Is this a current diagnosis for this admission?: Yes Plan: 11/23/2018-patient came in with UTI WBC count is more than 150 presently on IV Rocephin blood cultures urine cultures are pending. 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 To hold Lasix at this time. Plan to continue Entresto. (5) Obesity (BMI 30.0-34.9) Is this a current diagnosis for this admission?: No Plan: 11/23/2018-patient BMI is more than 31 diet exercise weight loss lifestyle modifications are discussed with the patient dietary consult was requested. (6) Hypertension Qualifiers: Hypertension type: essential hypertension Qualified Code(s): I10 - Essential (primary) hypertension Is this a current diagnosis for this admission?: Yes Plan: Patient be continued on her usual antihypertensive regimen and her blood pressure be monitored closely throughout her hospital course. 11/23/2018-patient blood pressure today is 112/73 , pulse rate of 73 presently on Entresto and metoprolol plan is to continue those medications. (7) Acute encephalopathy Is this a current diagnosis for this admission?: Yes Plan: 11/23/2018-patient came in with confusion altered mental status most likely secondary to high blood sugars most likely she has acute metabolic encephalopat hy she is more alert more awake today. - Time Time Spent with patient: 15-24 minutes Medications reviewed and adjusted accordingly: Yes Anticipated discharge: Home
[2018-11-23] MEDS: PAROXETINE HCL 20 MG TABLET PO SCH (09:09)
[2018-11-23] MEDS: METOPROLOL SUCCINATE 25 MG TAB.SR.24H PO SCH (09:10)
[2018-11-23] MEDS: SACUBITRIL/VALSARTAN 49 MG/51 MG TABLET PO SCH ×2 (09:10→21:27)
[2018-11-23] MEDS: DOCUSATE SODIUM 100 MG CAPSULE PO SCH ×2 (09:10→17:40)
[2018-11-23 09:18] LABS: ANION GAP 10 (5-19); BLOOD UREA NITROGEN 22 mg/dL (7-20); CALCIUM 8.3 mg/dL (8.4-10.2); CARBON DIOXIDE 22 mmol/L (22-30); CHLORIDE 104 mmol/L (98-107); GLUCOSE 243 mg/dL (75-110); POTASSIUM 3.8 mmol/L (3.6-5.0)
[2018-11-23] MEDS ORDERED: INSULIN GLARGINE,HUM.REC.ANLOG 1,000 UNIT/10 ML VIAL SUBCUT SCH (10:00)
[2018-11-23] MEDS ORDERED: FUROSEMIDE 40 MG TABLET PO SCH (10:00)
[2018-11-23] MEDS: INSULIN GLARGINE,HUM.REC.ANLOG 1,000 UNIT/10 ML VIAL SUBCUT SCH ×2 (12:33→21:25)
--- NOTE | 2018-11-23 13:07 | RADIOLOGY REPORT (SQ) ---
EXAM DESCRIPTION: KNEE RIGHT 2 VIEWS COMPLETED DATE/TIME: 11/23/2018 9:01 am REASON FOR STUDY: pain COMPARISON: Right knee x-ray 11/04/2018, 03/19/2014 NUMBER OF VIEWS: Two views. TECHNIQUE: AP and lateral radiographic images acquired of the right knee. LIMITATIONS: None. FINDINGS: MINERALIZATION: Normal. BONES: No acute fracture or dislocation. Mild osteophytosis at the medial tibiofemoral compartment. No significant interval change in the sclerotic lesions at the distal femur and proximal tibia. JOINT: No effusion. SOFT TISSUES: No soft tissue swelling. Vascular calcifications are noted. No radio-opaque foreign b randolph. IMPRESSION: No radiographic evidence for acute fracture of the right knee. TECHNICAL DOCUMENTATION: JOB ID: [id number] 2010 [employer]- All Rights Reserved Reading location - IP/workstation name: [email or web address]
[2018-11-23 13:11] LABS: ANION GAP 7 (5-19); BLOOD UREA NITROGEN 23 mg/dL (7-20); CALCIUM 8.1 mg/dL (8.4-10.2); CARBON DIOXIDE 22 mmol/L (22-30); CHLORIDE 104 mmol/L (98-107); GLUCOSE 327 mg/dL (75-110)
[2018-11-23 16:47] LABS: ANION GAP 7 (5-19); BLOOD UREA NITROGEN 23 mg/dL (7-20); CALCIUM 8.2 mg/dL (8.4-10.2); CARBON DIOXIDE 19 mmol/L (22-30); CHLORIDE 107 mmol/L (98-107); GLUCOSE 327 mg/dL (75-110); POTASSIUM 4.3 mmol/L (3.6-5.0)
[2018-11-23 20:53] LABS: ANION GAP 5 (5-19); BLOOD UREA NITROGEN 24 mg/dL (7-20); CALCIUM 7.9 mg/dL (8.4-10.2); CARBON DIOXIDE 19 mmol/L (22-30); CHLORIDE 108 mmol/L (98-107); POTASSIUM 4.4 mmol/L (3.6-5.0)
[2018-11-23 21:00] LABS: GLUCOSE 401 mg/dL (75-110)
[2018-11-23] MEDS: CEFTRIAXONE 1 GM/D5W RTU 1 GM/50 ML RTUPB IV SCH (21:24)
[2018-11-23] MEDS: ATORVASTATIN CALCIUM 80 MG TABLET PO SCH (21:25)
[2018-11-24] MEDS ORDERED: INSULIN REG, HUMAN 100 UNIT/ML 3 ML VIAL (PYX) SUBCUT ONE (02:00)
[2018-11-24] MEDS: PANTOPRAZOLE SODIUM 40 MG TABLET.DR PO SCH ×2 (05:25→16:35)
[2018-11-24] MEDS: GABAPENTIN 400 MG CAPSULE PO SCH ×3 (05:25→21:20)
[2018-11-24] MEDS: HEPARIN SOD (PORCINE) 5,000 UNIT/ML 1 ML VIAL SUBCUT SCH (05:25)
[2018-11-24 05:55] LABS: ALBUMIN 2.1 g/dL (3.5-5.0); ALKALINE PHOSPHATASE 116 U/L (38-126); ASPARTATE AMINO TRANSFERASE 22 U/L (14-36); BILIRUBIN,DIRECT 0.2 mg/dL (0.0-0.4); BILIRUBIN,TOTAL 0.2 mg/dL (0.2-1.3); BLOOD UREA NITROGEN 22 mg/dL (7-20); CALCIUM 8.2 mg/dL (8.4-10.2); GLUCOSE 229 mg/dL (75-110); POTASSIUM 4.1 mmol/L (3.6-5.0); TOTAL PROTEIN 4.7 g/dL (6.3-8.2)
[2018-11-24 05:56] LABS: HEMATOCRIT 37.4 % (36.0-47.0); HEMOGLOBIN 11.7 g/dL (12.0-15.5); MEAN CORPUSCULAR HEMOGLOBIN 25.1 pg (27.0-33.4); MEAN CORPUSCULAR HGB CONC 31.4 g/dL (32.0-36.0); MEAN CORPUSCULAR VOLUME 80 fl (80-97); PLATELET COUNT 156 10^3/uL (150-450); RED BLOOD COUNT 4.68 10^6/uL (3.72-5.28); RED CELL DISTRIBUTION WIDTH 19.3 % (11.5-14.0); WHITE BLOOD COUNT 6.1 10^3/uL (4.0-10.5)
[2018-11-24 06:00] LABS: ANION GAP 5 (5-19); CARBON DIOXIDE 20 mmol/L (22-30); CHLORIDE 113 mmol/L (98-107)
[2018-11-24] MEDS: POTASSI CL 20 MEQ/NS 1L 1,000 ML IV PRN (06:21)
[2018-11-24] MEDS ORDERED: (PENDING PHARMACY ID) (Oxycodone Hcl/Acetaminophen [Percocet 7.5-325 Mg Tablet] 1 EACH) PO PRN (07:38)
[2018-11-24] MEDS ORDERED: INSULIN REG, HUMAN 100 UNIT/ML 3 ML VIAL (PYX) SUBCUT SCH (08:00)
[2018-11-24] MEDS ORDERED: GLUCAGON,HUMAN RECOMB 1 MG INJ IM PRN (08:38)
[2018-11-24] MEDS ORDERED: DEXTROSE 40% GEL 15 GM TUBE PO PRN ×4 (08:38→09:39)
[2018-11-24] MEDS ORDERED: DEXTROSE 50%-WATER 25 GM/50 ML DISP.SYRIN IV PRN ×4 (08:38→09:39)
--- NOTE | 2018-11-24 08:47 | PDOC PROGRESS REPORT ---
Subjective Progress Note for:: 11/24/18 Subjective:: 68 year old female who presented to the emergency room with a 2-day history of malaise. She admits generalized body aches and pains worsening over the last 2 days accompanied by 2 separate episodes of vomiting, poor oral fluid intake and a decreased appetite. At the present time she states the body aches and pains are severe. The patient is a poor historian but denies prior similar episodes. She further denies other associated or accompanying signs and symptoms. She has not identified any aggravating or ameliorating factors for her malaise. In the emergency room she was found to have a blood sugar of 1160 with a potassium of 3.5 and bicarbonate level of 17. She was started on intravenous insulin infusion and admitted to the [facility] for further evaluation and treatment. 11/23/[id number]-iiay-old female admitted with uncontrolled diabetes mellitus blood sugar at the time of admission is 1100 not in DKA. She was started on IV fluids will insulin drip blood sugars drop less than 200 this morning she was on a diabetic diet insulin drip was discontinued IV fluids are decreased to 150 cc/h because of history of combined systolic and diastolic heart failure and started on Lantus 25 units twice a day and insulin sliding scale. Latest blood sugar is 353. More alert more awake communicating well complaining of right knee pain she said she fell 3 weeks ago came to the emergency room at that time she is not sure what she was told and she is requesting for x-rays again today. No acute events since the admission. 11/24/[id number]-wzyx-old female admitted with hyperosmolar nonketotic diabetic mellitus the admission blood sugars are 1100, hemoglobin A1c is 14 and the latest blood sugar is 119 this morning. Patient is on Lantus 25 units twice a day and high-dose of insulin sliding scale she complaining of wound in her right groin I spoke to Dr. Reddy he wants to keep her n.p.o. probable debridement tomorrow. In my opinion patient may not need any debridement. Wound looks necrotic. Wound cultures are requested presently on IV Rocephin. Patient is afebrile. Lantus dose was decreased to 15 units twice a day and insulin sliding scale is changed to every 6 hours with low-dose coverage. This is because patient is going to be n.p.o. from now as per surgical recommendations. Reason For Visit: SEVERE HYPERGLYCEMIA Physical Exam Vital Signs: Temp Pulse Resp BP Pulse Ox 98.5 F 85 20 115/52 L 90 L 11/24/18 03:33 11/24/18 06:45 11/24/18 03:33 11/24/18 03:33 11/24/18 03:33 Intake & Output 11/23/18 11/24/18 11/25/18 06:59 06:59 06:59 Intake Total 3383 4391 198 Output Total 2800 1175 Balance 583 3216 198 Weight 93.1 kg 97.6 kg General appearance: PRESENT: no acute distress, cooperative, mild distress Head exam: PRESENT: atraumatic Eye exam: PRESENT: PERRLA Mouth exam: PRESENT: neck supple Teeth exam: PRESENT: poor dentation Neck exam: ABSENT: carotid bruit, JVD, lymphadenopathy, thyromegaly Respiratory exam: PRESENT: decreased breath sounds Cardiovascular exam: PRESENT: RRR. ABSENT: diastolic murmur, rubs, systolic murmur GI/Abdominal exam: PRESENT: normal bowel sounds, soft. ABSENT: distended, guarding, mass, organolmegaly, rebound, tenderness Rectal exam: PRESENT: deferred Extremities exam: PRESENT: other - Complaining of painful wound in her right groin looks sloughy with drainage. No abscess present underneath. Neurological exam: PRESENT: alert, awake, oriented to person, oriented to place, oriented to time, oriented to situation, CN II-XII grossly intact. ABSENT: motor sensory deficit Psychiatric exam: PRESENT: appropriate affect, normal mood. ABSENT: homicidal ideation, suicidal ideation Results Laboratory Results: 11/24/18 04:39 11/24/18 04:39 11/23/18 11/23/18 11/23/18 08:41 12:36 16:25 WBC RBC Hgb Hct MCV MCH MCHC RDW Plt Count Sodium 136.0 L 133.3 L 132.5 L Potassium 3.8 4.0 4.3 Chloride 104 104 107 Carbon Dioxide 22 22 19 L Anion Gap 10 7 7 BUN 22 H 23 H 23 H Creatinine 1.16 1.20 1.24 Est GFR ( Amer) 57 L 54 L 52 L Glucose 243 H 327 H 327 H Calcium 8.3 L 8.1 L 8.2 L Magnesium Total Bilirubin AST Alkaline Phosphatase Total Protein Albumin 11/23/18 11/24/18 11/24/18 20:23 04:39 04:39 WBC 6.1 RBC 4.68 Hgb 11.7 L Hct 37.4 MCV 80 MCH 25.1 L MCHC 31.4 L RDW 19.3 H Plt Count 156 Sodium 132.2 L 138.2 Potassium 4.4 4.1 Chloride 108 H 113 H Carbon Dioxide 19 L 20 L Anion Gap 5 5 BUN 24 H 22 H Creatinine 1.35 H 1.31 H Est GFR ( Amer) 47 L 49 L Glucose 401 H* 229 H Calcium 7.9 L 8.2 L Magnesium 1.9 Total Bilirubin 0.2 AST 22 Alkaline Phosphatase 116 Total Protein 4.7 L Albumin 2.1 L 11/22/18 21:58 Clean Catch Midstream Urine Culture - Final Group B Beta Streptococcus 11/22/18 11/22/18 20:05 20:05 Creatine Kinase 289 H CK-MB (CK-2) 5.72 H Troponin I 0.047 Impressions: Chest X-Ray 11/22/18 19:46 IMPRESSION: No acute abnormality is identified. CLINICAL HISTORY: 68 years, Female, chest pain COMPARISON: None. NUMBER OF VIEWS: TECHNIQUE: LIMITATIONS: None. FINDINGS: IMPRESSION: copyright 2010 [employer]- All Rights Reserved Knee X-Ray 11/23/18 00:00 IMPRESSION: No radiographic evidence for acute fracture of the right knee. Assessment and Plan - Diagnosis (1) Hyperosmolar non-ketotic state in patient with type 2 diabetes mellitus Is this a current diagnosis for this admission?: Yes Plan: Patient will be treated with intravenous insulin infusion until her blood sugar has been well controlled and her electrolytes are in an appropriate range for discontinuation of intravenous insulin therapy. Accu-Cheks will be obtained every hour and metabolic profiles will be obtained every 4 hours. 11/23/18-patient admitted with hyperosmolar nonketotic state secondary to type 2 diabetes mellitus hemoglobin A1c is 14. Latest blood sugar 353. Presently on a diabetic diet IV fluids normal saline at 150 cc/h with potassium supplementation insulin sliding scale before meals and at bedtime and also Lantus 25 units twice a day. Dietary consult will be requested. Diet compliance with medication was advised. 11/24/2018-patient is going to be n.p.o. as per surgical recommendations plan is to decrease the Lantus to 15 units twice a day and insulin sliding scale was changed to low-dose because the patient is going to be n.p.o. from now as per surgical recommendations. hemoglobin A1c is 14 patient is noncompliant with her medications. (2) Hypokalemia Is this a current diagnosis for this admission?: Yes Plan: 11/23/2018-serum potassium is 3.3 patient is receiving IV potassium supplementation. 11/24/2018-. Since serum potassium is 4.1 today hypokalemia is resolved. (3) Urinary tract infection Qualifiers: Urinary tract infection type: site unspecified Hematuria presence: without hematuria Qualified Code(s): N39.0 - Urinary tract infection, site not specified Is this a current diagnosis for this admission?: Yes Plan: 11/23/2018-patient came in with UTI WBC count is more than 150 presently on IV Rocephin blood cultures urine cultures are pending. 11/24/2018-patient came in with abnormal urine analysis, urine culture shows group B streptococcus. Presently on IV Rocephin. Plan is to continue the antibiotic. 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 To hold Lasix at this time. Plan to continue Entresto. 11/24/2018-patient has history of chronic congestive heart failure it is both sys tolic and diastolic heart failure. Not in fluid overload. Recently on Entresto and Lasix on hold. (5) Obesity (BMI 30.0-34.9) Is this a current diagnosis for this admission?: No Plan: 11/23/2018-patient BMI is more than 31 diet exercise weight loss lifestyle modifications are discussed with the patient dietary consult was requested. (6) Hypertension Qualifiers: Hypertension type: essential hypertension Qualified Code(s): I10 - Essential (primary) hypertension Is this a current diagnosis for this admission?: Yes Plan: Patient be continued on her usual antihypertensive regimen and her blood pressur e be monitored closely throughout her hospital course. 11/23/2018-patient blood pressure today is 112/73 , pulse rate of 73 presently on Entresto and metoprolol plan is to continue those medications. 9 10/18/2018-patient's latest blood pressure is 115/52 stable. Patient is presently on Entresto. (7) Acute encephalopathy Is this a current diagnosis for this admission?: Yes Plan: 11/23/2018-patient came in with confusion altered mental status most likely secondary to high blood sugars most likely she has acute metabolic encephalop athy she is more alert more awake today. 11/24/2018-patient admitted with acute encephalopathy most likely secondary to uncontrolled diabetes mellitus with blood sugar of 1400. Today she is alert oriented communicating well. (8) Right groin wound Is this a current diagnosis for this admission?: Yes Plan: 11/24/2018-patient complaining of painful wound in her right groin looks necrotic. Wound cultures are requested. Surgical consult was requested. Afebrile with normal WBC count. Patient is presently on IV ceftriaxone plan is to continue the present management. Dr. Patel requested me to put the patient n.p.o. for now. - Time Time Spent with patient: 15-24 minutes Medications reviewed and adjusted accordingly: Yes Anticipated discharge: Home
[2018-11-24] MEDS: INSULIN GLARGINE,HUM.REC.ANLOG 1,000 UNIT/10 ML VIAL SUBCUT SCH ×2 (09:28→21:20)
[2018-11-24] MEDS ORDERED: GLUCAGON,HUMAN RECOMB 1 MG INJ SUBCUT PRN (09:39)
[2018-11-24] MEDS: METOPROLOL SUCCINATE 25 MG TAB.SR.24H PO SCH (09:40)
[2018-11-24] MEDS: DOCUSATE SODIUM 100 MG CAPSULE PO SCH ×2 (09:40→17:49)
[2018-11-24] MEDS: SUCRALFATE 1 GM TABLET PO SCH ×4 (09:40→21:20)
[2018-11-24] MEDS: METOCLOPRAMIDE HCL 10 MG TABLET PO SCH ×4 (09:40→21:20)
[2018-11-24] MEDS: SACUBITRIL/VALSARTAN 49 MG/51 MG TABLET PO SCH ×2 (09:40→21:20)
[2018-11-24] MEDS: PAROXETINE HCL 20 MG TABLET PO SCH (09:40)
[2018-11-24] MEDS: POTASSIUM CHLORIDE 10 MEQ CAPSULE.ER PO SCH ×3 (09:40→16:35)
[2018-11-24] MEDS: FAMOTIDINE 20 MG TABLET PO SCH ×4 (09:43→21:20)
--- NOTE | 2018-11-24 09:47 | PDOC CONSULTATION ---
Consultation Consult Date: 11/24/18 Provider Consulted: ELIDIA JONES History of Present Illness Admission Date/PCP: 11/22/18 22:06 YAMILEX GARCIA MD History of Present Illness: EDUARDA JARRELL is a 68 year old female, obese, with type 1 diabetes, admitted 2 days ago for congestive heart failure, found to have a right groin area of drainage, pain, and swelling as per abscess. Past Medical History Cardiac Medical History: Reports: Congestive Heart Failure, Hyperlipidema, Hypertension Pulmonary Medical History: Reports: Asthma, Chronic Obstructive Pulmonary Disease (COPD) Denies: Tuberculosis EENT Medical History: Denies: Cataracts, Ears - Hearing aids Neurological Medical History: Denies: Hemorrhagic CVA, Ischemic CVA, Seizures Endocrine Medical History: Reports: Diabetes Mellitus Type 2, Obesity Denies: Diabetes Mellitus Type 1, Hyperthyroidism, Hypothyroidism Renal/ Medical History: Denies: Chronic Kidney Disease, Nephrolithiasis Malignancy Medical History: Reports: None GI Medical History: Denies: Cirrhosis, Crohn's Disease, Hepatitis, Ulcerative Colitis Musculoskeltal Medical History: Reports: Other - Chronic pain syndrome Denies: Arthritis, Gout Skin Medical History: Denies: Eczema, Psoriasis Psychiatric Medical History: Reports: Depression Denies: Alcohol Dependency, Substance Abuse, Tobacco Dependency Hematology: Denies: Anemia, Sickle Cell Disease, Bleeding Tendencies Past Surgical History Past Surgical History: Reports: Appendectomy, Section - x2, Orthopedic Surgery - toe Denies: Amputation Social History Lives with: Family Smoking Status: Never Smoker Frequency of Alcohol Use: None Hx Recreational Drug Use: No Drugs: None Hx Prescription Drug Abuse: No - Advance Directive Resuscitation Status: Full Code Family History Family History: CAD, DM, Hypertension. denies: Malignancy Parental Family History Reviewed: No Children Family History Reviewed: No Sibling(s) Family History Reviewed.: No Medication/Allergy Home Medications: Atorvastatin Calcium [Lipitor 40 mg Tablet] 40 mg PO DAILY 11/23/18 Furosemide [Lasix 40 mg Tablet] 40 mg PO DAILY 11/23/18 Gabapentin [Neurontin] 800 mg PO Q8 11/23/18 Insulin Aspart [Novolog Flexpen] 20 unit SQ ASDIR 11/23/18 Metoprolol Tartrate [Lopressor 25 mg Tablet] 25 mg PO Q12 11/23/18 Omeprazole 40 mg PO Q6AM 11/23/18 Oxycodone HCl/Acetaminophen [Percocet 7.5-325 mg Tablet] 1 each PO Q6HP PRN 11/23/18 Sacubitril/Valsartan [Entresto 49 mg/51 mg Tablet] 1 tab PO BID 11/23/18 Allergies/Adverse Reactions: No Known Allergies Allergy (Verified 11/22/18 17:34) Physical Exam Vital Signs: Temp Pulse Resp BP Pulse Ox 98.5 F 85 20 115/52 L 90 L 11/24/18 03:33 11/24/18 06:45 11/24/18 03:33 11/24/18 03:33 11/24/18 03:33 Intake & Output 11/23/18 11/24/18 11/25/18 06:59 06:59 06:59 Intake Total 3383 4391 198 Output Total 2800 1175 Balance 583 3216 198 Weight 93.1 kg 97.6 kg General appearance: PRESENT: no acute distress Head exam: PRESENT: atraumatic, normocephalic Eye exam: PRESENT: EOMI Mouth exam: PRESENT: moist, neck supple Teeth exam: PRESENT: poor dentation Neck exam: PRESENT: full ROM Respiratory exam: PRESENT: clear to auscultation rodrigue Cardiovascular exam: PRESENT: RRR GI/Abdominal exam: PRESENT: soft Gentrourinary exam: PRESENT: indwelling catheter, other - Right groin = presence of a 2 x 1 cm area of ulceration, pain, slight induration, mild erythema Neurological exam: PRESENT: alert, oriented to time, oriented to situation Psychiatric exam: PRESENT: appropriate affect Skin exam: PRESENT: warm Results Laboratory Results: 11/24/18 04:39 11/24/18 04:39 11/23/18 11/23/18 11/23/18 12:36 16:25 20:23 WBC RBC Hgb Hct MCV MCH MCHC RDW Plt Count Sodium 133.3 L 132.5 L 132.2 L Potassium 4.0 4.3 4.4 Chloride 104 107 108 H Carbon Dioxide 22 19 L 19 L Anion Gap 7 7 5 BUN 23 H 23 H 24 H Creatinine 1.20 1.24 1.35 H Est GFR ( Amer) 54 L 52 L 47 L Glucose 327 H 327 H 401 H* Calcium 8.1 L 8.2 L 7.9 L Magnesium Total Bilirubin AST Alkaline Phosphatase Total Protein Albumin 11/24/18 11/24/18 04:39 04:39 WBC 6.1 RBC 4.68 Hgb 11.7 L Hct 37.4 MCV 80 MCH 25.1 L MCHC 31.4 L RDW 19.3 H Plt Count 156 Sodium 138.2 Potassium 4.1 Chloride 113 H Carbon Dioxide 20 L Anion Gap 5 BUN 22 H Creatinine 1.31 H Est GFR ( Amer) 49 L Glucose 229 H Calcium 8.2 L Magnesium 1.9 Total Bilirubin 0.2 AST 22 Alkaline Phosphatase 116 Total Protein 4.7 L Albumin 2.1 L 11/22/18 21:58 Clean Catch Midstream Urine Culture - Final Group B Beta Streptococcus 11/22/18 11/22/18 20:05 20:05 Creatine Kinase 289 H CK-MB (CK-2) 5.72 H Troponin I 0.047 Impressions: Chest X-Ray 11/22/18 19:46 IMPRESSION: No acute abnormality is identified. CLINICAL HISTORY: 68 years, Female, chest pain COMPARISON: None. NUMBER OF VIEWS: TECHNIQUE: LIMITATIONS: None. FINDINGS: IMPRESSION: copyright 2011 [employer]- All Rights Reserved Knee X-Ray 11/23/18 00:00 IMPRESSION: No radiographic evidence for acute fracture of the right knee. Assessment & Plan - Diagnosis (1) Right groin wound Is this a current diagnosis for this admission?: Yes - Plan Summary Plan Summary: Assessment: Right groin area with ulceration, and induration with tenderness as per the right groin abscess Normal white blood cell count Urine culture significant for Streptococcus Right urine culture pending History of type 1 diabetes, currently under poor control Plan: N.p.o. after midnight Plan debridement, incision and drainage of right groin abscess Procedure, risks, benefits, complications explained to the patient she understands all the above, her questions answered, and she decided to proceed Preop EKG IV fluids while n.p.o. Stop heparin preop
[2018-11-24] MEDS: INSULIN REG, HUMAN 100 UNIT/ML 3 ML VIAL (PYX) SUBCUT SCH ×3 (12:38→23:25)
[2018-11-24] MEDS: NORMAL SALINE 1000 ML 1,000 ML IV PRN (13:17)
--- NOTE | 2018-11-24 18:49 | EKG REPORT ---
SEVERITY:- ABNORMAL ECG - SINUS TACHYCARDIA LEFT BUNDLE BRANCH BLOCK : Confirmed by: Renzo Ashraf 24-Nov-2018 18:48:39
[2018-11-24] MEDS: TEMAZEPAM 15 MG CAPSULE PO PRN (21:20)
[2018-11-24] MEDS: ATORVASTATIN CALCIUM 80 MG TABLET PO SCH (21:20)
[2018-11-24] MEDS: CEFTRIAXONE 1 GM/D5W RTU 1 GM/50 ML RTUPB IV SCH (21:21)
[2018-11-24] MEDS: OXYCODONE HCL IR 5 MG TABLET PO PRN (22:04)
[2018-11-25] MEDS: PANTOPRAZOLE SODIUM 40 MG TABLET.DR PO SCH ×2 (06:21→16:59)
[2018-11-25] MEDS: INSULIN REG, HUMAN 100 UNIT/ML 3 ML VIAL (PYX) SUBCUT SCH ×6 (06:21→23:00)
[2018-11-25] MEDS: GABAPENTIN 400 MG CAPSULE PO SCH ×3 (06:21→22:21)
[2018-11-25] MEDS: NORMAL SALINE 1000 ML 1,000 ML IV PRN (06:24)
[2018-11-25 07:43] LABS: HEMATOCRIT 37.6 % (36.0-47.0); MEAN CORPUSCULAR HEMOGLOBIN 25.4 pg (27.0-33.4); MEAN CORPUSCULAR HGB CONC 31.9 g/dL (32.0-36.0); MEAN CORPUSCULAR VOLUME 80 fl (80-97); PLATELET COUNT 172 10^3/uL (150-450); RED BLOOD COUNT 4.73 10^6/uL (3.72-5.28); RED CELL DISTRIBUTION WIDTH 19.4 % (11.5-14.0); WHITE BLOOD COUNT 5.1 10^3/uL (4.0-10.5)
[2018-11-25 08:16] LABS: ALBUMIN 2.2 g/dL (3.5-5.0); ALKALINE PHOSPHATASE 124 U/L (38-126); ASPARTATE AMINO TRANSFERASE 21 U/L (14-36); BILIRUBIN,DIRECT 0.3 mg/dL (0.0-0.4); BILIRUBIN,TOTAL 0.3 mg/dL (0.2-1.3); BLOOD UREA NITROGEN 16 mg/dL (7-20); CALCIUM 8.5 mg/dL (8.4-10.2); GLUCOSE 277 mg/dL (75-110); POTASSIUM 4.1 mmol/L (3.6-5.0); TOTAL PROTEIN 4.9 g/dL (6.3-8.2)
[2018-11-25 08:21] LABS: CARBON DIOXIDE 23 mmol/L (22-30); CHLORIDE 113 mmol/L (98-107)
[2018-11-25 08:24] LABS: ANION GAP 3 (5-19)
--- NOTE | 2018-11-25 08:41 | PDOC PROGRESS REPORT ---
Subjective Progress Note for:: 11/25/18 Subjective:: 68 year old female who presented to the emergency room with a 2-day history of malaise. She admits generalized body aches and pains worsening over the last 2 days accompanied by 2 separate episodes of vomiting, poor oral fluid intake and a decreased appetite. At the present time she states the body aches and pains are severe. The patient is a poor historian but denies prior similar episodes. She further denies other associated or accompanying signs and symptoms. She has not identified any aggravating or ameliorating factors for her malaise. In the emergency room she was found to have a blood sugar of 1160 with a potassium of 3.5 and bicarbonate level of 17. She was started on intravenous insulin infusion and admitted to the [facility] for further evaluation and treatment. 11/23/[id number]-old female admitted with uncontrolled diabetes mellitus blood sugar at the time of admission is 1100 not in DKA. She was started on IV fluids will insulin drip blood sugars drop less than 200 this morning she was on a diabetic diet insulin drip was discontinued IV fluids are decreased to 150 cc/h because of history of combined systolic and diastolic heart failure and started on Lantus 25 units twice a day and insulin sliding scale. Latest blood sugar is 353. More alert more awake communicating well complaining of right knee pain she said she fell 3 weeks ago came to the emergency room at that time she is not sure what she was told and she is requesting for x-rays again today. No acute events since the admission. 11/24/[id number]-old female admitted with hyperosmolar nonketotic diabetic mellitus the admission blood sugars are 1100, hemoglobin A1c is 14 and the latest blood sugar is 119 this morning. Patient is on Lantus 25 units twice a day and high-dose of insulin sliding scale she complaining of wound in her right groin I spoke to Dr. Reddy he wants to keep her n.p.o. probable debridement tomorrow. In my opinion patient may not need any debridement. Wound looks necrotic. Wound cultures are requested presently on IV Rocephin. Patient is afebrile. Lantus dose was decreased to 15 units twice a day and insulin sliding scale is changed to every 6 hours with low-dose coverage. This is because patient is going to be n.p.o. from now as per surgical recommendations. 11/25/[id number]-[id number]-old female admitted for uncontrolled diabetes mellitus found to have abscess in the right groin she is going for incision and debridement today. She is n.p.o. And IV fluids normal saline 50 cc/h. No acute events in the last 24 hours. Afebrile. Urine cultures positive for group B streptococcus. Presently on IV Levaquin and Rocephin. Reason For Visit: SEVERE HYPERGLYCEMIA Physical Exam Vital Signs: Temp Pulse Resp BP Pulse Ox 97.8 F 78 16 151/73 H 87 L 11/25/18 08:06 11/25/18 08:06 11/25/18 08:06 11/25/18 08:06 11/25/18 07:38 Intake & Output 11/24/18 11/25/18 11/26/18 06:59 06:59 06:59 Intake Total 4391 1949 Output Total 1175 3480 Balance 3216 -1531 Weight 97.6 kg 99.5 kg General appearance: PRESENT: no acute distress, cooperative, obese Head exam: PRESENT: atraumatic Eye exam: PRESENT: PERRLA Mouth exam: PRESENT: moist, tongue midline Teeth exam: PRESENT: poor dentation Neck exam: ABSENT: carotid bruit, JVD, lymphadenopathy, thyromegaly Respiratory exam: PRESENT: decreased breath sounds Cardiovascular exam: PRESENT: RRR. ABSENT: diastolic murmur, rubs, systolic murmur GI/Abdominal exam: PRESENT: normal bowel sounds, soft. ABSENT: distended, guarding, mass, organolmegaly, rebound, tenderness Rectal exam: PRESENT: deferred Neurological exam: PRESENT: alert, awake, oriented to person, oriented to place, oriented to time, oriented to situation, CN II-XII grossly intact. ABSENT: motor sensory deficit Psychiatric exam: PRESENT: appropriate affect, normal mood. ABSENT: homicidal ideation, suicidal ideation Results Laboratory Results: 11/25/18 06:59 11/25/18 06:59 11/25/18 11/25/18 06:59 06:59 WBC 5.1 RBC 4.73 Hgb 12.0 Hct 37.6 MCV 80 MCH 25.4 L MCHC 31.9 L RDW 19.4 H Plt Count 172 Sodium 139.0 Potassium 4.1 Chloride 113 H Carbon Dioxide 23 Anion Gap 3 L BUN 16 Creatinine 1.01 Est GFR ( Amer) > 60 Glucose 277 H Calcium 8.5 Magnesium 1.9 Total Bilirubin 0.3 AST 21 Alkaline Phosphatase 124 Total Protein 4.9 L Albumin 2.2 L 11/22/18 11/22/18 20:05 20:05 Creatine Kinase 289 H CK-MB (CK-2) 5.72 H Troponin I 0.047 Impressions: Chest X-Ray 11/22/18 19:46 IMPRESSION: No acute abnormality is identified. CLINICAL HISTORY: 68 years, Female, chest pain COMPARISON: None. NUMBER OF VIEWS: TECHNIQUE: LIMITATIONS: None. FINDINGS: IMPRESSION: copyright 2010 [employer]- All Rights Reserved Knee X-Ray 11/23/18 00:00 IMPRESSION: No radiographic evidence for acute fracture of the right knee. Assessment and Plan - Diagnosis (1) Hyperosmolar non-ketotic state in patient with type 2 diabetes mellitus Is this a current diagnosis for this admission?: Yes Plan: Patient will be treated with intravenous insulin infusion until her blood sugar has been well controlled and her electrolytes are in an appropriate range for discontinuation of intravenous insulin therapy. Accu-Cheks will be obtained every hour and metabolic profiles will be obtained every 4 hours. 11/23/18-patient admitted with hyperosmolar nonketotic state secondary to type 2 diabetes mellitus hemoglobin A1c is 14. Latest blood sugar 353. Presently on a diabetic diet IV fluids normal saline at 150 cc/h with potassium supplementation insulin sliding scale before meals and at bedtime and also Lantus 25 units twice a day. Dietary consult will be requested. Diet compliance with medication was advised. 11/24/2018-patient is going to be n.p.o. as per surgical recommendations plan is to decrease the Lantus to 15 units twice a day and insulin sliding scale was changed to low-dose because the patient is going to be n.p.o. from now as per surgical recommendations. hemoglobin A1c is 14 patient is noncompliant with her medications. 11/25/2018-patient is n.p.o. for possible incision drainage and debridement of the right groin abscess. Latest blood sugar is at 277. She is on normal saline at 50 cc/h and also on Lantus 15 units twice a day and insulin sliding scale. (2) Hypokalemia Is this a current diagnosis for this admission?: Yes Plan: 11/23/2018-serum potassium is 3.3 patient is receiving IV potassium supplementat ion. 11/24/2018-. Since serum potassium is 4.1 today hypokalemia is resolved. 11/25/2018-serum potassium is 4.1 today hypokalemia is resolved. (3) Urinary tract infection Qualifiers: Urinary tract infection type: site unspecified Hematuria presence: without hematuria Qualified Code(s): N39.0 - Urinary tract infection, site not specified Is this a current diagnosis for this admission?: Yes Plan: 11/23/2018-patient came in with UTI WBC count is more than 150 presently on IV Rocephin blood cultures urine cultures are pending. 11/24/2018-patient came in with abnormal urine analysis, urine culture shows group B streptococcus. Presently on IV Rocephin. Plan is to continue the antibiotic. 11/25/2018-patient came in with abnormal urine analysis urine culture positive for group B streptococcus. She also has a right groin abscess. On IV Rocephin and levo floxacillin. 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 To hold Lasix at this time. Plan to con tinue Entresto. 11/24/2018-patient has history of chronic congestive heart failure it is both systolic and diastolic heart failure. Not in fluid overload. Recently on Entresto and Lasix on hold. 11/25/2018-patient has history of combined systolic and diastolic heart failure. Not in fluid overload. Plan is to closely monitor her fluid balance. (5) Obesity (BMI 30.0-34.9) Is this a current diagnosis for this admission?: No (6) Hypertension Qualifiers: Hypertension type: essential hypertension Qualified Code(s): I10 - Essential (primary) hypertension Is this a current diagnosis for this admission?: Yes Plan: Patient be continued on her usual antihypertensive regimen and her blood pressure be monitored closely throughout her hospital course. 11/23/2018-patient blood pressure today is 112/73 , pulse rate of 73 presently on Entresto and metoprolol plan is to continue those medications. 9 10/18/2018-patient's latest blood pressure is 115/52 stable. Patient is presently on Entresto. 11/25/2018-patient blood pressure today is 115/70 stable. Presently on Entresto and metoprolol plan is to continue the present management. (7) Acute encephalopathy Is this a current diagnosis for this admission?: Yes Plan: 11/23/2018-patient came in with confusion altered mental status most likely secondary to high blood sugars most likely she has acute metabolic enceph alopathy she is more alert more awake today. 11/24/2018-patient admitted with acute encephalopathy most likely secondary to uncontrolled diabetes mellitus with blood sugar of 1400. Today she is alert oriented communicating well. 11/25 Patient's mental status at her baseline. Admitted with acute encephalopathy most likely secondary to uncontrolled blood sugars. (8) Right groin wound Is this a current diagnosis for this admission?: Yes Plan: 11/24/2018-patient complaining of painful wound in her right groin looks necrotic. Wound cultures are requested. Surgical consult was requested. Afebrile with normal WBC count. Patient is presently on IV ceftriaxone plan is to continue the present management. Dr. Patel requested me to put the patient n.p.o. for now. 11/25/2018-patient has right groin abscess she is n.p.o. going for incision and drainage and possible debridement today. Presently on IV Rocephin and levo floxacillin wound cultures are requested. - Time Time Spent with patient: 25-34 minutes Medications reviewed and adjusted accordingly: Yes Anticipated discharge: Home
[2018-11-25] MEDS: POTASSIUM CHLORIDE 10 MEQ CAPSULE.ER PO SCH ×3 (09:13→17:00)
[2018-11-25] MEDS: SACUBITRIL/VALSARTAN 49 MG/51 MG TABLET PO SCH ×2 (09:13→22:28)
[2018-11-25] MEDS: DOCUSATE SODIUM 100 MG CAPSULE PO SCH ×2 (09:13→17:00)
[2018-11-25] MEDS: METOCLOPRAMIDE HCL 10 MG TABLET PO SCH ×4 (09:13→22:21)
[2018-11-25] MEDS: FAMOTIDINE 20 MG TABLET PO SCH ×4 (09:13→22:21)
[2018-11-25] MEDS: SUCRALFATE 1 GM TABLET PO SCH ×4 (09:13→22:21)
[2018-11-25] MEDS: METOPROLOL SUCCINATE 25 MG TAB.SR.24H PO SCH (09:18)
[2018-11-25] MEDS: PAROXETINE HCL 20 MG TABLET PO SCH (09:18)
[2018-11-25] MEDS: LEVOFLOXACIN 500 MG/D5W RTU 500 MG/100 ML RTUPB IV SCH (09:20)
[2018-11-25] MEDS: INSULIN GLARGINE,HUM.REC.ANLOG 1,000 UNIT/10 ML VIAL SUBCUT SCH ×2 (09:26→22:28)
[2018-11-25] MEDS ORDERED: MIDAZOLAM 2 MG/2 ML INJ ONE (10:21)
[2018-11-25] MEDS ORDERED: FENTANYL CITRATE INJ/PF 100 MCG/2 ML AMPUL ONE (10:21)
[2018-11-25 11:16] LABS: CREATINE KINASE MB 2.8 ng/mL (<4.55); TROPONIN I 0.016 ng/mL
[2018-11-25] MEDS: OXYCODONE HCL IR 5 MG TABLET PO PRN (11:43)
[2018-11-25] MEDS ORDERED: DEXTROSE 50%-WATER SYRINGE 25 GM/50 ML DOSE IV PRN (13:00)
[2018-11-25] MEDS ORDERED: DEXTROSE 50%-WATER SYRINGE 12.5 GM/25 ML DOSE IV PRN (13:00)
[2018-11-25] MEDS ORDERED: DEXTROSE 40% GEL 15 GM TUBE PO PRN ×3 (13:00→13:47)
[2018-11-25] MEDS ORDERED: DEXTROSE 40% GEL 15 GM TUBE X 2 PO PRN (13:00)
[2018-11-25] MEDS ORDERED: GLUCAGON,HUMAN RECOMB 1 MG INJ IM PRN (13:00)
[2018-11-25] MEDS ORDERED: GLUCAGON,HUMAN RECOMB 1 MG INJ SUBCUT PRN (13:47)
[2018-11-25] MEDS ORDERED: DEXTROSE 50%-WATER 25 GM/50 ML DISP.SYRIN IV PRN ×2 (13:47)
--- NOTE | 2018-11-25 13:47 | PDOC PROGRESS REPORT ---
Subjective Progress Note for:: 11/25/18 Subjective:: no c/o Reason For Visit: SEVERE HYPERGLYCEMIA Physical Exam Vital Signs: Temp Pulse Resp BP Pulse Ox 97.2 F 80 16 146/81 H 93 11/25/18 11:57 11/25/18 11:57 11/25/18 11:57 11/25/18 11:57 11/25/18 11:57 Intake & Output 11/24/18 11/25/18 11/26/18 06:59 06:59 06:59 Intake Total 4314 1949 360 Output Total 1175 3480 Balance 3216 -1531 360 Weight 97.6 kg 99.5 kg Gentrourinary exam: PRESENT: other - right groin absces, tender Results Laboratory Results: 11/25/18 06:59 11/25/18 06:59 11/25/18 11/25/18 06:59 06:59 WBC 5.1 RBC 4.73 Hgb 12.0 Hct 37.6 MCV 80 MCH 25.4 L MCHC 31.9 L RDW 19.4 H Plt Count 172 Sodium 139.0 Potassium 4.1 Chloride 113 H Carbon Dioxide 23 Anion Gap 3 L BUN 16 Creatinine 1.01 Est GFR ( Amer) > 60 Glucose 277 H Calcium 8.5 Magnesium 1.9 Total Bilirubin 0.3 AST 21 Alkaline Phosphatase 124 Total Protein 4.9 L Albumin 2.2 L 11/22/18 11/22/18 11/25/18 20:05 20:05 10:09 Creatine Kinase 289 H 148 H CK-MB (CK-2) 5.72 H Troponin I 0.047 11/25/18 10:09 Creatine Kinase CK-MB (CK-2) 2.80 Troponin I 0.016 Impressions: Chest X-Ray 11/22/18 19:46 IMPRESSION: No acute abnormality is identified. CLINICAL HISTORY: 68 years, Female, chest pain COMPARISON: None. NUMBER OF VIEWS: TECHNIQUE: LIMITATIONS: None. FINDINGS: IMPRESSION: copyright 2010 [employer]- All Rights Reserved Knee X-Ray 11/23/18 00:00 IMPRESSION: No radiographic evidence for acute fracture of the right knee. Assessment & Plan - Diagnosis (1) Right groin wound Is this a current diagnosis for this admission?: Yes - Plan Summary Plan Summary: A/ Right groin abscess neeeding drainage patient c/o chest pain this AM: troponin is negative EKG has similar changes since admission P/ patient to have surgery (Right groin abscess I&D) once she is cleared by the cardiology service NPO after midnight tonight should she be cleared this afternoon
--- NOTE | 2018-11-25 14:46 | EKG REPORT ---
SEVERITY:- ABNORMAL ECG - SINUS RHYTHM LEFT BUNDLE BRANCH BLOCK : Confirmed by: Radha Terry MD 25-Nov-2018 14:45:33
[2018-11-25 16:34] LABS: CREATINE KINASE MB 2.54 ng/mL (<4.55); TROPONIN I 0.016 ng/mL
--- NOTE | 2018-11-25 21:16 | PDOC CONSULTATION ---
Consultation-Blank Consultation: CARDIOLOGY CONSULTATION by Dr. Radha Terry on 11/25/2018. Patient seen at 9 AM. 60 minutes spent on this patient more than 50% of time spent direct patient care. REASON FOR CONSULTATION: Cardiac risk assessment for incision and drainage of right groin abscess under local and sedation. CONSULT REQUESTING PHYSICIAN: The anesthesiologist and the surgical list. HISTORY PRESENT ILLNESS: Patient is a moderately obese Afro-Swedish female with known history of dilated cardiomyopathy with LV ejection fraction of 25% by echocardiogram of August 2018 admitted with history of malaise and generalized fatigue and weakness and found to have a very high blood sugar and was treated with insulin. The patient does have chronic orthopnea and chronic mild leg swelling. She denies PND or chest pain. There is no shortness of breath at rest. The patient also has a history of hypertension, diabetes mellitus, ob structive sleep apnea and states she uses CPAP at night. She also has a history of asthma and COPD. She denies any past history of myocardial infarction or anginal symptoms. Of note the patient is not a very good historian. There is no history of TIA or CVA. No recent symptoms of acute exacerbation of asthma or COPD. Past Medical History Cardiac Medical History: Reports: Congestive Heart Failure, Hyperlipidema, Hypertension. No history of TN or anginal symptoms. No history of syncope or palpitations or history of cardiac arrhythmias. History of dilated cardiomyopathy with severely reduced LV ejection fraction. Pulmonary Medical History: Reports: Asthma, Chronic Obstructive Pulmonary Disease (COPD) Denies: Tuberculosis EENT Medical History: Denies: Cataracts, Ears - Hearing aids Neurological Medical History: Denies: Hemorrhagic CVA, Ischemic CVA, Seizures Endocrine Medical History: Reports: Diabetes Mellitus Type 2, Obesity Denies: Diabetes Mellitus Type 1, Hyperthyroidism, Hypothyroidism Renal/ Medical History: Denies: Chronic Kidney Disease, Nephrolithiasis Malignancy Medical History: Reports: None GI Medical History: Denies: Cirrhosis, Crohn's Disease, Hepatitis, Ulcerative Colitis Musculoskeltal Medical History: Reports: Other - Chronic pain syndrome Denies: Arthritis, Gout Skin Medical History: Denies: Eczema, Psoriasis Psychiatric Medical History: Reports: Depression Denies: Alcohol Dependency, Substance Abuse, Tobacco Dependency Hematology: Denies: Anemia, Sickle Cell Disease, Bleeding Tendencies Past Surgical History Past Surgical History: Reports: Appendectomy, Section - x2, Orthopedic Surgery - toe Social History Information Source: Patient Lives with: Family Smoking Status: Never Smoker Frequency of Alcohol Use: None Hx Recreational Drug Use: No Drugs: None Hx Prescription Drug Abuse: No - Advance Directive Resuscitation Status: Full Code Surrogate healthcare decision maker:: Indu Ley, the patient's daughter. Family History Family History: CAD, DM, Hypertension. denies: Malignancy Parental Family History Reviewed: Yes Children Family History Reviewed: No Sibling(s) Family History Reviewed.: Yes Medication/Allergy Home Medications: Budesonide/Formoterol Fumarate [Symbicort HFA 160-4.5 mcg Inhaler 6 gm] 2 puff IH Q12 06/28/18 Gabapentin [Neurontin] 800 mg PO Q8 06/28/18 Oxycodone HCl/Acetaminophen [Percocet 7.5-325 mg Tablet] 1 tab PO Q6HP PRN 06/28/18 Atorvastatin Calcium [Lipitor 80 mg Tablet] 80 mg PO QHS 14 Days #14 tablet 07/03/18 Furosemide [Lasix 40 mg Tablet] 40 mg PO DAILY 14 Days #14 tablet 07/03/18 Metoprolol Succinate [Toprol Xl 25 mg Tab.sr] 25 mg PO Q12 14 Days #28 tab.sr.24h 07/03/18 Paroxetine HCl [Paxil] 10 mg PO DAILY 14 Days #14 tablet 07/03/18 Insulin Aspart [Novolog Insulin (Aspart) 100 unit/mL] 25 unit SQ MEALS 08/28/18 Insulin Glargine,Hum.rec.anlog [Basaglar Kwikpen U-100] 60 unit SQ QHS 08/28/18 Omeprazole 40 mg PO DAILY 08/28/18 Potassium Chloride [Klor-Con 10 Meq Capsule ER] 10 meq PO DAILY 08/28/18 Sacubitril/Valsartan [Entresto 49 mg/51 mg Tablet] 1 tab PO BID #60 tablet 09/02/18 Allergies/Adverse Reactions: No Known Allergies Allergy (Verified 11/22/18 1 7:34) Review of Systems Constitutional: PRESENT: as per HPI, anorexia, other - Malaise with decreased oral intake of food and fluids. ABSENT: chills, fever(s) Eyes: ABSENT: visual disturbances, other - Eye pain Ears: ABSENT: hearing changes, other - Ear pain Nose, Mouth, and Throat: ABSENT: mouth pain, sore throat Cardiovascular: ABSENT: chest pain, palpitations Respiratory: ABSENT: cough, dyspnea Gastrointestinal: PRESENT: as per HPI, nausea, vomiting. ABSENT: abdominal pain, constipation, diarrhea Genitourinary: ABSENT: dysuria, hematuria Musculoskeletal: PRESENT: back pain - Chronic. ABSENT: joint swelling, muscle weakness Integumentary: ABSENT: pruritus, rash Neurological: ABSENT: confusion, convulsions, focal weakness, memory loss, syncope Psychiatric: ABSENT: anxiety, depression Endocrine: ABSENT: cold intolerance, heat intolerance Hematologic/Lymphatic: ABSENT: easy bleeding, easy bruising Allergic/Immunologic: ABSENT: seasonal rhinorrhea PHYSICAL EXAMINATION: The patient is moderately obese. In no acute distress. 11/25/18 08:06 Temperature 97.8 F Pulse Rate 78 Respiratory 16 Rate Blood Pressure 151/73 H [Right Upper Arm] O2 Sat by Pulse 93 Oximetry Oxygen Delivery Nasal Cannula Method ( includes room air) Oxygen Flow 2 Rate HEAD: Is atraumatic normocephalic. EYES: Pupils equal round regular reactive light accommodation. Extraocular movements are normal there is no conjunctival pallor. There is no scleral icterus. EARS: Tympanic membranes are intact. External auditory canals are clear. NOSE: There is no deviated nasal septum. There is no inflammation of the nasal mucous membrane. MOUTH: Mucous membranes of mouth are moist. The patient's oral cavity is modified Mallampati classification class IV. There is no bleeding from the gums. THROAT: There is no exudates in the throat. There is no redness of the oropharynx. SKIN: There is no skin rashes or skin lesions. There is no particular ecchymosis. NECK: Is supple. There is no definite JVD. Carotids are equal there is no bruit. There is no lymphadenopathy. There is no accessory muscle respiration use. There is no goiter. Trachea central. LUNGS: There is diminished air entry prolonged expiration without any rhonchi rales or wheezing. On percussion there is hyperresonance throughout. On palpation there is no chest wall tenderness. HEART: S1-S2 is heard. There is no S3 gallop. There is no S4 gallop. There is murmur of mitral regurgitation and tricuspid regurgitation present. There is no rub. ABDOMEN: Is obese there is no paraspinal megaly. Bowel sounds are well heard. There is no tender areas of masses. EXTREMITIES there is an abscess which is dressed on the right groin. Left femoral pulses diminished. Leg pulses are diminished. There is no femoral bruits. There is trace to mild pedal edema. There is no DVT or cellulitis. There is no calf tenderness. ADMINISTRATIVE INTERN: Patient is conscious awake, oriented x3 with no focal deficits. PSYCHIATRIC: The patient judgment insight seems to be intact although the patient's is slightly of slow mentation. Current Medications Generic Name Dose Route Start Last Admin Trade Name Freq PRN Reason Stop Dose Admin Acetaminophen 650 mg 11/22/18 23:11 Tylenol 325 Mg Tablet PO 12/22/18 23:10 Q4HP PRN For headache, pain or fever Al Hydrox/Mg Hydrox/Simethicone 30 ml 11/22/18 23:11 Maalox Plus Susp 30 Udcup PO 12/22/18 23:10 Q6HP PRN HEARTBURN Atorvastatin Calcium 80 mg 11/23/18 22:00 11/24/18 21:20 Lipitor 80 Mg Tablet PO 12/23/18 21:59 80 mg QHS CRISTELA Administration Dextrose 12.5 gm 11/25/18 13:47 Dextrose Inj 50% Syringe (25 Gm/50 Ml) IV 12/25/18 13:46 PRN PRN FOR BG 50-69 IN ALERT PATIENT Protocol Dextrose 25 gm 11/25/18 13:47 Dextrose Inj 50% Syringe (25 Gm/50 Ml) IV 12/25/18 13:46 PRN PRN See Label Comments Protocol Docusate Sodium 100 mg 11/23/18 10:00 11/25/18 17:00 Colace 100 Mg Capsule PO 12/23/18 09:59 100 mg BID CRISTELA Administration Famotidine 10 mg 11/23/18 08:00 11/25/18 17:00 Pepcid 20 Mg Tablet PO 12/23/18 07:59 10 mg ACHS CRISTELA Administration Gabapentin 800 mg 11/23/18 06:00 11/25/18 13:18 Neurontin 400 Mg Capsule PO 12/23/18 05:59 800 mg Q8 CRISTELA Administration Glucagon 1 mg 11/25/18 13:47 Glucagen Inj 1 Mg Vial SUBCUT 12/25/18 13:46 PRN PRN Evaluate for BG < 70 Protocol Glucose 15 gm 11/25/18 13:47 Glutose 40% Gel 15 Gm Tube PO 12/25/18 13:46 PRN PRN For BG 50-69 in Alert Patient Protocol Glucose 30 gm 11/25/18 13:47 Glutose 40% Gel 15 Gm Tube PO 12/25/18 13:46 PRN PRN FOR BG < 50 IN ALERT PATIENT Protocol Hydralazine HCl 20 mg 11/22/18 23:11 Apresoline Inj/Pf 20 Mg/1 Ml Sdv IV 12/22/18 23:10 Q4HP PRN Give For Sbp > 160 / Dbp > 100 Ceftriaxone Sodium/Dextrose 1 gm in 50 mls @ 100 mls/hr 11/23/18 22:00 11/24/18 22:21 Rocephin Rtu 1 Gm/D5w 50 Ml Premix IV 11/30/18 21:59 Infused QHS CRISTELA Infusion Levofloxacin/Dextrose 500 mg in 100 mls @ 100 mls/hr 11/25/18 10:00 11/25/18 11:35 Levaquin Rtu 500mg/D5w 100 Ml Premix IV 12/02/18 09:59 Infused DAILY CRISTELA Infusion Insulin Glargine 15 unit 11/24/18 10:00 11/25/18 09:26 Lantus Insulin 100 Unit/1 Ml 10 Ml SUBCUT 12/24/18 09:59 15 unit Q12 CRISTELA Administration Insulin Human Regular 0 - 12 unit 11/24/18 12:00 11/25/18 17:02 Humulin R (Pyxis) Insulin 100 Unit/Ml 3ml SUBCUT 12/24/18 11:59 Not Given Q6 CRISTELA Protocol Insulin Human Regular 0 - 12 unit 11/25/18 16:00 11/25/18 17:00 Humulin R (Pyxis) Insulin 100 Unit/Ml 3ml SUBCUT 12/25/18 15:59 4 unit ACHS CRISTELA Administration Protocol Magnesium Hydroxide 30 ml 11/22/18 23:11 Milk Of Magnesia 30 Ml Udcup PO 12/22/18 23:10 HSP PRN FOR CONSTIPATION Metoclopramide HCl 10 mg 11/23/18 08:00 11/25/18 17:00 Reglan 10 Mg Tablet PO 12/23/18 07:59 10 mg ACHS CRISTELA Administration Metoprolol Succinate 25 mg 11/23/18 10:00 11/25/18 09:18 Toprol Xl 25 Mg Tab.Sr PO 12/23/18 09:59 Not Given DAILY CRISTELA Nicotine 1 each 11/22/18 23:11 Nicoderm 21 Mg/24 Hr Transderm Patch TD 12/22/18 23:10 DAILYP PRN WITHDRAWAL SYMPTOMS Ondansetron HCl 4 mg 11/23/18 00:30 Zofran Inj/Pf 4 Mg/2 Ml Sdv IV 12/23/18 00:29 Q4HP PRN FOR NAUSEA/VOMITING Ondansetron HCl 4 mg 11/23/18 00:30 Zofran Odt 4 Mg Tablet PO 12/23/18 00:29 Q4HP PRN FOR NAUSEA/VOMITING Oxycodone HCl 7.5 mg 11/23/18 01:57 11/25/18 11:43 Oxy-Ir 5 Mg Tablet PO 11/30/18 01:56 7.5 mg Q4HP PRN Administration FOR PAIN SCALE 3-5 Pantoprazole Sodium 40 mg 11/23/18 06:00 11/25/18 16:[address] Tablet PO 12/23/18 05:59 40 mg BID@0600,1700 CRISTELA Administration Paroxetine HCl 10 mg 11/23/18 10:00 11/25/18 09:18 Paxil 20 Mg Tablet PO 12/23/18 09:59 Not Given DAILY CRISTELA Potassium Chloride 10 meq 11/23/18 08:00 11/25/18 17:00 Klor-Con 10 Meq Capsule Er PO 12/23/18 07:59 10 meq MEALS CRISTELA Administration Sacubitril/Valsartan 1 tab 11/23/18 10:00 11/25/18 09:13 Entresto 49 Mg/51 Mg Tablet PO 12/23/18 09:59 Not Given Q12 CRISTELA Sodium Chloride 2.5 ml 11/23/18 06:00 11/25/18 13:18 Saline Flush 2.5 Ml Monoject Prefil Syrin IV 12/23/18 05:59 2.5 ml Q8 CRISTELA Administration Sucralfate 1 gm 11/23/18 08:00 11/25/18 16:59 Carafate 1 Gm Tablet PO 12/23/18 07:59 1 gm ACHS CRISTELA Administration Temazepam 15 mg 11/23/18 00:30 11/24/18 21:20 Restoril 15 Mg Capsule PO 11/30/18 00:29 15 mg HSP PRN Administration SLEEP OR INSOMNIA Discontinued Medications Generic Name Dose Route Start Last Admin Trade Name Marcia PRN Reason Stop Dose Admin Dextrose 12.5 gm 11/22/18 23:10 Dextrose Inj 50% Syringe (25 Gm/50 Ml) IV 12/22/18 23:09 PRN PRN FOR BG 50-69 IN ALERT PATIENT Protocol Dextrose 25 gm 11/22/18 23:10 Dextrose Inj 50% Syringe (25 Gm/50 Ml) IV 12/22/18 23:09 PRN PRN PER PROTOCOL Protocol Dextrose 12.5 gm 11/23/18 07:31 Dextrose Inj 50% Syringe (25 Gm/50 Ml) IV 12/23/18 07:30 PRN PRN FOR BG 50-69 IN ALERT PATIENT Protocol Dextrose 25 gm 11/23/18 07:31 Dextrose Inj 50% Syringe (25 Gm/50 Ml) IV 12/23/18 07:30 PRN PRN PER PROTOCOL Protocol Dextrose 12.5 gm 11/25/18 13:00 Dextrose Inj 50% Syringe (25 Gm/50 Ml) IV 12/25/18 12:59 PRN PRN FOR BG 50-69 IN ALERT PATIENT Protocol Dextrose 25 gm 11/25/18 13:00 Dextrose Inj 50% Syringe (25 Gm/50 Ml) IV 12/25/18 12:59 PRN PRN PER PROTOCOL Protocol Fentanyl Citrate Confirm 11/25/18 10:21 Sublimaze Inj/Pf 100 Mcg/2 Ml Ampule Administered 11/25/18 10:22 Dose 100 mcg .ROUTE .STK-MED ONE Furosemide 40 mg 11/23/18 10:00 Lasix 40 Mg Tablet PO 12/23/18 09:59 DAILY CRISTELA Glucagon 1 mg 11/22/18 23:10 Glucagen Inj 1 Mg Vial IM 12/22/18 23:09 PRN PRN Evaluate for BG < 70 Protocol Glucagon 1 mg 11/23/18 07:31 Glucagen Inj 1 Mg Vial IM 12/23/18 07:30 PRN PRN Evaluate for BG < 70 Protocol Glucagon 1 mg 11/25/18 13:00 Glucagen Inj 1 Mg Vial IM 12/25/18 12:59 PRN PRN EVALUATE FOR BG < 70 Protocol Glucose 15 gm 11/22/18 23:10 Glutose 40% Gel 15 Gm Tube PO 12/22/18 23:09 PRN PRN FOR BG 50-69 IN ALERT PATIENT Protocol Glucose 30 gm 11/22/18 23:10 Glutose 40% Gel 15 Gm Tube PO 12/22/18 23:09 PRN PRN FOR BG < 50 IN ALERT PATIENT Protocol Glucose 15 gm 11/23/18 07:31 Glutose 40% Gel 15 Gm Tube PO 12/23/18 07:30 PRN PRN FOR BG 50-69 IN ALERT PATIENT Protocol Glucose 30 gm 11/23/18 07:31 Glutose 40% Gel 15 Gm Tube PO 12/23/18 07:30 PRN PRN FOR BG < 50 IN ALERT PATIENT Protocol Glucose 15 gm 11/25/18 13:00 Glutose 40% Gel 15 Gm Tube PO 12/25/18 12:59 PRN PRN FOR BG 50-69 IN ALERT PATIENT Protocol Glucose 30 gm 11/25/18 13:00 Glutose 40% Gel 15 Gm Tube PO 12/25/18 12:59 PRN PRN FOR BG < 50 IN ALERT PATIENT Protocol Heparin Sodium (Porcine) 5,000 unit 11/23/18 06:00 11/24/18 05:25 Heparin Inj 5,000 Units/Ml 1 Ml Vial SUBCUT 12/23/18 05:59 5,000 unit Q8 CRISTELA Administration Sodium Chloride 1,000 mls @ 0 mls/hr 11/22/18 21:29 11/22/18 22:39 Nacl 0.9% 1000 Ml Iv Soln IV 11/22/18 21:30 Infused BOLUS ONE Infusion Wide Open Insulin Human Regular 100 unit 101 mls @ 0 mls/hr 11/22/18 21:29 11/23/18 01:30 / Sodium Chloride IV 12/22/18 21:28 Infused CONTINUOUS PRN Titration THIS MED IS NOT "PRN" Protocol Titrate Potassium Chloride/Sodium Chloride 1,000 mls @ 350 mls/hr 11/22/18 21:59 11/23/18 04:13 Nacl 0.9% 1000 Ml/Kcl 20 Meq Premix Bag IV 11/23/18 00:50 Not Given NOW ONE Ceftriaxone Sodium/Dextrose 1 gm in 50 mls @ 100 mls/hr 11/22/18 22:23 11/23/18 00:20 Rocephin Rtu 1 Gm/D5w 50 Ml Premix IV 11/22/18 22:52 Infused NOW ONE Infusion Insulin Human Regular 100 unit 101 mls @ 0 mls/hr 11/22/18 23:16 / Sodium Chloride IV 12/22/18 21:28 CONTINUOUS PRN THIS MED IS NOT "PRN" Protocol Titrate Potassium Chloride 20 meq/ 1,000 mls @ 333 mls/hr 11/22/18 23:08 Lactated Ringer's IV 12/22/18 23:07 CONTINUOUS PRN THIS MED IS NOT "PRN" Insulin Human Regular 100 unit 101 mls @ 0 mls/hr 11/23/18 00:24 11/23/18 06:30 / Sodium Chloride IV 12/23/18 00:23 0 mls/hr CONTINUOUS PRN 0 mls/hr THIS MED IS NOT "PRN" Titration Protocol Titrate Potassium Chloride/Sodium Chloride Confirm 11/23/18 02:06 11/23/18 02:59 Nacl 0.9% 1000 Ml/Kcl 20 Meq Premix Bag Administered 11/23/18 02:07 Not Given Dose 2,000 mls @ ud IV .STK-MED ONE Potassium Chloride/Sodium Chloride 1,000 mls @ 333 mls/hr 11/23/18 02:44 11/23/18 08:00 Nacl 0.9% 1000 Ml/Kcl 20 Meq Premix Bag IV 12/23/18 02:43 Infused CONTINUOUS PRN Infusion THIS MED IS NOT "PRN" Potassium Chloride/Water 20 meq in 50 mls @ 25 mls/hr 11/23/18 07:30 11/23/18 07:55 Potassium Chloride [place] 20 Meq/50 Ml IV 11/23/18 11:29 Not Given Q2H CRISTELA Potassium Chloride/Sodium Chloride 1,000 mls @ 150 mls/hr 11/23/18 07:48 11/24/18 07:40 Nacl 0.9% 1000 Ml/Kcl 20 Meq Premix Bag IV 12/23/18 02:43 Infused CONTINUOUS PRN Infusion THIS MED IS NOT "PRN" Sodium Chloride 1,000 mls @ 50 mls/hr 11/24/18 09:48 11/25/18 11:36 Nacl 0.9% 1000 Ml Iv Soln IV 12/24/18 09:47 Infused CONTINUOUS PRN Infusion THIS MED IS NOT "PRN" Insulin Glargine 20 unit 11/23/18 10:00 Lantus Insulin 100 Unit/1 Ml 10 Ml SUBCUT 12/23/18 09:59 Q12 CRISTELA Insulin Glargine 25 unit 11/23/18 11:00 11/23/18 21:25 Lantus Insulin 100 Unit/1 Ml 10 Ml SUBCUT 12/23/18 10:59 25 unit Q12 [facility] Administration Insulin Human Regular Confirm 11/22/18 21:56 11/22/18 22:30 Humulin R (Pyxis) Insulin 100 Unit/Ml 3ml Administered 11/22/18 21:57 Not Given Dose 1 unit .ROUTE .[facility] Insulin Human Regular 0 - 30 unit 11/23/18 08:00 Humulin R (Pyxis) Insulin 100 Unit/Ml 3ml SUBCUT 12/23/18 07:59 [facility] Protocol Insulin Human Regular 0 - 12 unit 11/23/18 08:00 11/23/18 21:25 Humulin R (Pyxis) Insulin 100 Unit/Ml 3ml SUBCUT 12/23/18 07:59 12 unit [facility] Administration Protocol Insulin Human Regular 0 - 30 unit 11/24/18 08:00 11/24/18 08:20 Humulin R (Pyxis) Insulin 100 Unit/Ml 3ml SUBCUT 12/24/18 07:59 Not Given [facility] Protocol Insulin Human Regular 0 - 30 unit 11/24/18 02:00 11/24/18 02:41 Humulin R (Pyxis) Insulin 100 Unit/Ml 3ml SUBCUT 11/24/18 02:01 25 unit NOW ONE Administration Protocol Midazolam HCl Confirm 11/25/18 10:21 Versed 2 Mg/2 Ml Inj Administered 11/25/18 10:22 Dose 2 mg .ROUTE .[facility] ONE Nalbuphine HCl 5 mg 11/22/18 23:48 Nubain Inj 10 Mg/1 Ml Ampule IV 11/29/18 23:47 Q3HP PRN PAIN SCALE 1-3/5 Nalbuphine HCl 10 mg 11/22/18 23:49 11/23/18 02:24 Nubain Inj 10 Mg/1 Ml Ampule IV 11/29/18 23:48 10 mg Q3HP PRN Administration PAIN SCALE 4-5/5 Patient Own Medication 1 each 11/24/18 07:38 Oxycodone Hcl/Acetaminophen [Percocet 7.5-325 Mg Tablet] PO Q6HP PRN FOR PAIN Potassium Chloride 40 meq 11/22/18 21:56 11/22/18 22:14 Klor-Con 10 Meq Capsule Er PO 11/22/18 21:57 40 meq NOW ONE Administration Labs- Entire Visit 11/22/18 11/22/18 11/22/18 20:05 20:05 20:05 WBC 7.2 RBC 5.53 H Hgb 14.1 Hct 47.8 H MCV 86 MCH 25.5 L MCHC 29.5 L RDW 19.9 H Plt Count 212 Lymph % (Auto) 27.3 [place] % (Auto) 6.8 Eos % (Auto) 1.1 Baso % (Auto) 0.7 Absolute Neuts (auto) 4.6 Absolute Lymphs (auto) 2.0 Absolute Monos (auto) 0.5 Absolute Eos (auto) 0.1 Absolute Basos (auto) 0.1 Seg Neutrophils % 64.1 VBG pH VBG pCO2 VBG HCO3 VBG Base Excess Sodium 122.9 L Potassium 3.5 L Chloride 89 L Carbon Dioxide 17 L Anion Gap 17 BUN 26 H Creatinine 1.07 Est GFR ( Amer) > 60 Est GFR (MDRD) Non-Af 51 L Glucose 1161 H* POC Glucose Hemoglobin A1c % Serum Osmolality Calcium 8.6 Magnesium Total Bilirubin 0.5 Direct Bilirubin 0.4 Neonat Total Bilirubin Not Reportable Neonat Direct Bilirubin Not Reportable Neonat Indirect Bili Not Reportable AST 29 ALT 28 Alkaline Phosphatase 199 H Creatine Kinase 289 H CK-MB (CK-2) 5.72 H Troponin I 0.047 Total Protein 6.1 L Albumin 3.0 L Triglycerides Cholesterol LDL Cholesterol Direct VLDL Cholesterol HDL Cholesterol Lipase 69.7 TSH Free T4 Free T3 pg/mL Urine Color Urine Appearance Urine pH Ur Specific [place] Urine Protein Urine Glucose (UA) Urine Ketones Urine Blood Urine Nitrite Urine Bilirubin Urine Urobilinogen Ur Leukocyte Esterase Urine WBC (Auto) Urine RBC (Auto) Urine Bacteria (Auto) Urine Mucus (Auto) Urine Osmolality Urine Ascorbic Acid 11/22/18 11/22/18 11/22/18 20:05 21:35 21:58 WBC RBC Hgb Hct MCV MCH MCHC RDW Plt Count Lymph % (Auto) [place] % (Auto) Eos % (Auto) Baso % (Auto) Absolute Neuts (auto) Absolute Lymphs (auto) Absolute Monos (auto) Absolute Eos (auto) Absolute Basos (auto) Seg Neutrophils % VBG pH 7.29 L VBG pCO2 47.7 VBG HCO3 22.4 VBG Base Excess -4.5 Sodium Potassium Chloride Carbon Dioxide Anion Gap BUN Creatinine Est GFR ( Amer) Est GFR (MDRD) Non-Af Glucose POC Glucose Hemoglobin A1c % Serum Osmolality Calcium Magnesium 2.0 Total Bilirubin Direct Bilirubin Neonat Total Bilirubin Neonat Direct Bilirubin Neonat Indirect Bili AST ALT Alkaline Phosphatase Creatine Kinase CK-MB (CK-2) Troponin I Total Protein Albumin Triglycerides Cholesterol LDL Cholesterol Direct VLDL Cholesterol HDL Cholesterol Lipase TSH Free T4 Free T3 pg/mL Urine Color STRAW Urine Appearance SLIGHTLY-CLOUDY Urine pH 6.0 Ur Specific [place] 1.025 Urine Protein 100 H Urine Glucose (UA) >=500 H Urine Ketones NEGATIVE Urine Blood SMALL H Urine Nitrite NEGATIVE Urine Bilirubin NEGATIVE Urine Urobilinogen NEGATIVE Ur Leukocyte Esterase SMALL H Urine WBC (Auto) >182 Urine RBC (Auto) 1 Urine Bacteria (Auto) TRACE Urine Mucus (Auto) RARE Urine Osmolality Urine Ascorbic Acid NEGATIVE 11/22/18 11/22/18 11/22/18 21:58 22:19 22:19 WBC RBC Hgb Hct MCV MCH MCHC RDW Plt Count Lymph % (Auto) [place] % (Auto) Eos % (Auto) Baso % (Auto) Absolute Neuts (auto) Absolute Lymphs (auto) Absolute Monos (auto) Absolute Eos (auto) Absolute Basos (auto) Seg Neutrophils % VBG pH VBG pCO2 VBG HCO3 VBG Base Excess Sodium Potassium Chloride Carbon Dioxide Anion Gap BUN Creatinine Est GFR ( Amer) Est GFR (MDRD) Non-Af Glucose POC Glucose Hemoglobin A1c % Serum Osmolality 313 H Calcium Magnesium Total Bilirubin Direct Bilirubin Neonat Total Bilirubin Neonat Direct Bilirubin Neonat Indirect Bili AST ALT Alkaline Phosphatase Creatine Kinase CK-MB (CK-2) Troponin I Total Protein Albumin Triglycerides Cholesterol LDL Cholesterol Direct VLDL Cholesterol HDL Cholesterol Lipase TSH Free T4 1.49 Free T3 pg/mL 3.55 Urine Color Urine Appearance Urine pH Ur Specific [place] Urine Protein Urine Glucose (UA) Urine Ketones Urine Blood Urine Nitrite Urine Bilirubin Urine Urobilinogen Ur Leukocyte Esterase Urine WBC (Auto) Urine RBC (Auto) Urine Bacteria (Auto) Urine Mucus (Auto) Urine Osmolality 494 Urine Ascorbic Acid 11/22/18 11/23/18 11/23/18 23:19 00:17 00:17 WBC RBC Hgb Hct MCV MCH MCHC RDW Plt Count Lymph % (Auto) [place] % (Auto) Eos % (Auto) Baso % (Auto) Absolute Neuts (auto) Absolute Lymphs (auto) Absolute Monos (auto) Absolute Eos (auto) Absolute Basos (auto) Seg Neutrophils % VBG pH VBG pCO2 VBG HCO3 VBG Base Excess Sodium 131.2 L Potassium 3.5 L Chloride 98 Carbon Dioxide 22 Anion Gap 11 BUN 23 H Creatinine 0.98 Est GFR ( Amer) > 60 Est GFR (MDRD) Non-Af 57 L Glucose 613 H* POC Glucose > 550 H* Hemoglobin A1c % Serum Osmolality Calcium 8.4 Magnesium Total Bilirubin Direct Bilirubin Neonat Total Bilirubin Neonat Direct Bilirubin Neonat Indirect Bili AST ALT Alkaline Phosphatase Creatine Kinase CK-MB (CK-2) Troponin I Total Protein Albumin Triglycerides Cholesterol LDL Cholesterol Direct VLDL Cholesterol HDL Cholesterol Lipase TSH Free T4 1.66 Free T3 pg/mL 4.51 Urine Color Urine Appearance Urine pH Ur Specific [place] Urine Protein Urine Glucose (UA) Urine Ketones Urine Blood Urine Nitrite Urine Bilirubin Urine Urobilinogen Ur Leukocyte Esterase Urine WBC (Auto) Urine RBC (Auto) Urine Bacteria (Auto) Urine Mucus (Auto) Urine Osmolality Urine Ascorbic Acid 11/23/18 11/23/18 11/23/18 01:31 02:28 03:26 WBC RBC Hgb Hct MCV MCH MCHC RDW Plt Count Lymph % (Auto) [place] % (Auto) Eos % (Auto) Baso % (Auto) Absolute Neuts (auto) Absolute Lymphs (auto) Absolute Monos (auto) Absolute Eos (auto) Absolute Basos (auto) Seg Neutrophils % VBG pH VBG pCO2 VBG HCO3 VBG Base Excess Sodium Potassium Chloride Carbon Dioxide Anion Gap BUN Creatinine Est GFR ( Amer) Est GFR (MDRD) Non-Af Glucose POC Glucose 389 H 356 H 278 H Hemoglobin A1c % Serum Osmolality Calcium Magnesium Total Bilirubin Direct Bilirubin Neonat Total Bilirubin Neonat Direct Bilirubin Neonat Indirect Bili AST ALT Alkaline Phosphatase Creatine Kinase CK-MB (CK-2) Troponin I Total Protein Albumin Triglycerides Cholesterol LDL Cholesterol Direct VLDL Cholesterol HDL Cholesterol Lipase TSH Free T4 Free T3 pg/mL Urine Color Urine Appearance Urine pH Ur Specific [place] Urine Protein Urine Glucose (UA) Urine Ketones Urine Blood Urine Nitrite Urine Bilirubin Urine Urobilinogen Ur Leukocyte Esterase Urine WBC (Auto) Urine RBC (Auto) Urine Bacteria (Auto) Urine Mucus (Auto) Urine Osmolality Urine Ascorbic Acid 11/23/18 11/23/18 11/23/18 04:28 04:28 04:28 WBC 8.1 RBC 5.13 Hgb 13.0 Hct 40.4 MCV 79 L D MCH 25.3 L MCHC 32.1 RDW 19.0 H Plt Count 210 Lymph % (Auto) [place] % (Auto) Eos % (Auto) Baso % (Auto) Absolute Neuts (auto) Absolute Lymphs (auto) Absolute Monos (auto) Absolute Eos (auto) Absolute Basos (auto) Seg Neutrophils % VBG pH VBG pCO2 VBG HCO3 VBG Base Excess Sodium 135.4 L Potassium 3.3 L Chloride 104 Carbon Dioxide 23 Anion Gap 8 BUN 22 H Creatinine 1.07 Est GFR ( Amer) > 60 Est GFR (MDRD) Non-Af 51 L Glucose 242 H POC Glucose Hemoglobin A1c % > 14.0 H Serum Osmolality Calcium 8.5 Magnesium 1.9 Total Bilirubin 0.3 Direct Bilirubin 0.3 Neonat Total Bilirubin Not Reportable Neonat Direct Bilirubin Not Reportable Neonat Indirect Bili Not Reportable AST 24 ALT 21 Alkaline Phosphatase 143 H Creatine Kinase CK-MB (CK-2) Troponin I Total Protein 5.4 L Albumin 2.5 L Triglycerides 193 H Cholesterol 276.26 H LDL Cholesterol Direct 151 H VLDL Cholesterol 38.6 H HDL Cholesterol 74 Lipase TSH Free T4 Free T3 pg/mL Urine Color Urine Appearance Urine pH Ur Specific [place] Urine Protein Urine Glucose (UA) Urine Ketones Urine Blood Urine Nitrite Urine Bilirubin Urine Urobilinogen Ur Leukocyte Esterase Urine WBC (Auto) Urine RBC (Auto) Urine Bacteria (Auto) Urine Mucus (Auto) Urine Osmolality Urine Ascorbic Acid 11/23/18 11/23/18 11/23/18 04:28 04:28 05:15 WBC RBC Hgb Hct MCV MCH MCHC RDW Plt Count Lymph % (Auto) [place] % (Auto) Eos % (Auto) Baso % (Auto) Absolute Neuts (auto) Absolute Lymphs (auto) Absolute Monos (auto) Absolute Eos (auto) Absolute Basos (auto) Seg Neutrophils % VBG pH VBG pCO2 VBG HCO3 VBG Base Excess Sodium Potassium Chloride Carbon Dioxide Anion Gap BUN Creatinine Est GFR ( Amer) Est GFR (MDRD) Non-Af Glucose POC Glucose 213 H 194 H Hemoglobin A1c % Serum Osmolality Calcium Magnesium Total Bilirubin Direct Bilirubin Neonat Total Bilirubin Neonat Direct Bilirubin Neonat Indirect Bili AST ALT Alkaline Phosphatase Creatine Kinase CK-MB (CK-2) Troponin I Total Protein Albumin Triglycerides Cholesterol LDL Cholesterol Direct VLDL Cholesterol HDL Cholesterol Lipase TSH 2.58 Free T4 Free T3 pg/mL Urine Color Urine Appearance Urine pH Ur Specific [place] Urine Protein Urine Glucose (UA) Urine Ketones Urine Blood Urine Nitrite Urine Bilirubin Urine Urobilinogen Ur Leukocyte Esterase Urine WBC (Auto) Urine RBC (Auto) Urine Bacteria (Auto) Urine Mucus (Auto) Urine Osmolality Urine Ascorbic Acid 11/23/18 11/23/18 11/23/18 06:26 08:14 08:41 WBC RBC Hgb Hct MCV MCH MCHC RDW Plt Count Lymph % (Auto) [place] % (Auto) Eos % (Auto) Baso % (Auto) Absolute Neuts (auto) Absolute Lymphs (auto) Absolute Monos (auto) Absolute Eos (auto) Absolute Basos (auto) Seg Neutrophils % VBG pH VBG pCO2 VBG HCO3 VBG Base Excess Sodium 136.0 L Potassium 3.8 Chloride 104 Carbon Dioxide 22 Anion Gap 10 BUN 22 H Creatinine 1.16 Est GFR ( Amer) 57 L Est GFR (MDRD) Non-Af 47 L Glucose 243 H POC Glucose 170 H 352 H Hemoglobin A1c % Serum Osmolality Calcium 8.3 L Magnesium Total Bilirubin Direct Bilirubin Neonat Total Bilirubin Neonat Direct Bilirubin Neonat Indirect Bili AST ALT Alkaline Phosphatase Creatine Kinase CK-MB (CK-2) Troponin I Total Protein Albumin Triglycerides Cholesterol LDL Cholesterol Direct VLDL Cholesterol HDL Cholesterol Lipase TSH Free T4 Free T3 pg/mL Urine Color Urine Appearance Urine pH Ur Specific [place] Urine Protein Urine Glucose (UA) Urine Ketones Urine Blood Urine Nitrite Urine Bilirubin Urine Urobilinogen Ur Leukocyte Esterase Urine WBC (Auto) Urine RBC (Auto) Urine Bacteria (Auto) Urine Mucus (Auto) Urine Osmolality Urine Ascorbic Acid 11/23/18 11/23/18 11/23/18 11:40 12:36 16:25 WBC RBC Hgb Hct MCV MCH MCHC RDW Plt Count Lymph % (Auto) [place] % (Auto) Eos % (Auto) Baso % (Auto) Absolute Neuts (auto) Absolute Lymphs (auto) Absolute Monos (auto) Absolute Eos (auto) Absolute Basos (auto) Seg Neutrophils % VBG pH VBG pCO2 VBG HCO3 VBG Base Excess Sodium 133.3 L 132.5 L Potassium 4.0 4.3 Chloride 104 107 Carbon Dioxide 22 19 L Anion Gap 7 7 BUN 23 H 23 H Creatinine 1.20 1.24 Est GFR ( Amer) 54 L 52 L Est GFR (MDRD) Non-Af 45 L 43 L Glucose 327 H 327 H POC Glucose 325 H Hemoglobin A1c % Serum Osmolality Calcium 8.1 L 8.2 L Magnesium Total Bilirubin Direct Bilirubin Neonat Total Bilirubin Neonat Direct Bilirubin Neonat Indirect Bili AST ALT Alkaline Phosphatase Creatine Kinase CK-MB (CK-2) Troponin I Total Protein Albumin Triglycerides Cholesterol LDL Cholesterol Direct VLDL Cholesterol HDL Cholesterol Lipase TSH Free T4 Free T3 pg/mL Urine Color Urine Appearance Urine pH Ur Specific [place] Urine Protein Urine Glucose (UA) Urine Ketones Urine Blood Urine Nitrite Urine Bilirubin Urine Urobilinogen Ur Leukocyte Esterase Urine WBC (Auto) Urine RBC (Auto) Urine Bacteria (Auto) Urine Mucus (Auto) Urine Osmolality Urine Ascorbic Acid 11/23/18 11/23/18 11/23/18 17:32 20:23 21:44 WBC RBC Hgb Hct MCV MCH MCHC RDW Plt Count Lymph % (Auto) [place] % (Auto) Eos % (Auto) Baso % (Auto) Absolute Neuts (auto) Absolute Lymphs (auto) Absolute Monos (auto) Absolute Eos (auto) Absolute Basos (auto) Seg Neutrophils % VBG pH VBG pCO2 VBG HCO3 VBG Base Excess Sodium 132.2 L Potassium 4.4 Chloride 108 H Carbon Dioxide 19 L Anion Gap 5 BUN 24 H Creatinine 1.35 H Est GFR ( Amer) 47 L Est GFR (MDRD) Non-Af 39 L Glucose 401 H* POC Glucose 246 H 372 H Hemoglobin A1c % Serum Osmolality Calcium 7.9 L Magnesium Total Bilirubin Direct Bilirubin Neonat Total Bilirubin Neonat Direct Bilirubin Neonat Indirect Bili AST ALT Alkaline Phosphatase Creatine Kinase CK-MB (CK-2) Troponin I Total Protein Albumin Triglycerides Cholesterol LDL Cholesterol Direct VLDL Cholesterol HDL Cholesterol Lipase TSH Free T4 Free T3 pg/mL Urine Color Urine Appearance Urine pH Ur Specific [place] Urine Protein Urine Glucose (UA) Urine Ketones Urine Blood Urine Nitrite Urine Bilirubin Urine Urobilinogen Ur Leukocyte Esterase Urine WBC (Auto) Urine RBC (Auto) Urine Bacteria (Auto) Urine Mucus (Auto) Urine Osmolality Urine Ascorbic Acid 11/24/18 11/24/18 11/24/18 02:35 04:39 04:39 WBC 6.1 RBC 4.68 Hgb 11.7 L Hct 37.4 MCV 80 MCH 25.1 L MCHC 31.4 L RDW 19.3 H Plt Count 156 Lymph % (Auto) [place] % (Auto) Eos % (Auto) Baso % (Auto) Absolute Neuts (auto) Absolute Lymphs (auto) Absolute Monos (auto) Absolute Eos (auto) Absolute Basos (auto) Seg Neutrophils % VBG pH VBG pCO2 VBG HCO3 VBG Base Excess Sodium 138.2 Potassium 4.1 Chloride 113 H Carbon Dioxide 20 L Anion Gap 5 BUN 22 H Creatinine 1.31 H Est GFR ( Amer) 49 L Est GFR (MDRD) Non-Af 41 L Glucose 229 H POC Glucose 353 H Hemoglobin A1c % Serum Osmolality Calcium 8.2 L Magnesium 1.9 Total Bilirubin 0.2 Direct Bilirubin 0.2 Neonat Total Bilirubin Not Reportable Neonat Direct Bilirubin Not Reportable Neonat Indirect Bili Not Reportable AST 22 ALT 18 Alkaline Phosphatase 116 Creatine Kinase CK-MB (CK-2) Troponin I Total Protein 4.7 L Albumin 2.1 L Triglycerides Cholesterol LDL Cholesterol Direct VLDL Cholesterol HDL Cholesterol Lipase TSH Free T4 Free T3 pg/mL Urine Color Urine Appearance Urine pH Ur Specific [place] Urine Protein Urine Glucose (UA) Urine Ketones Urine Blood Urine Nitrite Urine Bilirubin Urine Urobilinogen Ur Leukocyte Esterase Urine WBC (Auto) Urine RBC (Auto) Urine Bacteria (Auto) Urine Mucus (Auto) Urine Osmolality Urine Ascorbic Acid 11/24/18 11/24/18 11/24/18 06:20 08:00 12:36 WBC RBC Hgb Hct MCV MCH MCHC RDW Plt Count Lymph % (Auto) [place] % (Auto) Eos % (Auto) Baso % (Auto) Absolute Neuts (auto) Absolute Lymphs (auto) Absolute Monos (auto) Absolute Eos (auto) Absolute Basos (auto) Seg Neutrophils % VBG pH VBG pCO2 VBG HCO3 VBG Base Excess Sodium Potassium Chloride Carbon Dioxide Anion Gap BUN Creatinine Est GFR ( Amer) Est GFR (MDRD) Non-Af Glucose POC Glucose 119 H 88 179 H Hemoglobin A1c % Serum Osmolality Calcium Magnesium Total Bilirubin Direct Bilirubin Neonat Total Bilirubin Neonat Direct Bilirubin Neonat Indirect Bili AST ALT Alkaline Phosphatase Creatine Kinase CK-MB (CK-2) Troponin I Total Protein Albumin Triglycerides Cholesterol LDL Cholesterol Direct VLDL Cholesterol HDL Cholesterol Lipase TSH Free T4 Free T3 pg/mL Urine Color Urine Appearance Urine pH Ur Specific [place] Urine Protein Urine Glucose (UA) Urine Ketones Urine Blood Urine Nitrite Urine Bilirubin Urine Urobilinogen Ur Leukocyte Esterase Urine WBC (Auto) Urine RBC (Auto) Urine Bacteria (Auto) Urine Mucus (Auto) Urine Osmolality Urine Ascorbic Acid 11/24/18 11/24/18 11/24/18 17:53 19:48 23:20 WBC RBC Hgb Hct MCV MCH MCHC RDW Plt Count Lymph % (Auto) [place] % (Auto) Eos % (Auto) Baso % (Auto) Absolute Neuts (auto) Absolute Lymphs (auto) Absolute Monos (auto) Absolute Eos (auto) Absolute Basos (auto) Seg Neutrophils % VBG pH VBG pCO2 VBG HCO3 VBG Base Excess Sodium Potassium Chloride Carbon Dioxide Anion Gap BUN Creatinine Est GFR ( Amer) Est GFR (MDRD) Non-Af Glucose POC Glucose 174 H 181 H 333 H Hemoglobin A1c % Serum Osmolality Calcium Magnesium Total Bilirubin Direct Bilirubin Neonat Total Bilirubin Neonat Direct Bilirubin Neonat Indirect Bili AST ALT Alkaline Phosphatase Creatine Kinase CK-MB (CK-2) Troponin I Total Protein Albumin Triglycerides Cholesterol LDL Cholesterol Direct VLDL Cholesterol HDL Cholesterol Lipase TSH Free T4 Free T3 pg/mL Urine Color Urine Appearance Urine pH Ur Specific [place] Urine Protein Urine Glucose (UA) Urine Ketones Urine Blood Urine Nitrite Urine Bilirubin Urine Urobilinogen Ur Leukocyte Esterase Urine WBC (Auto) Urine RBC (Auto) Urine Bacteria (Auto) Urine Mucus (Auto) Urine Osmolality Urine Ascorbic Acid 11/25/18 11/25/18 11/25/18 05:47 06:59 06:59 WBC 5.1 RBC 4.73 Hgb 12.0 Hct 37.6 MCV 80 MCH 25.4 L MCHC 31.9 L RDW 19.4 H Plt Count 172 Lymph % (Auto) [place] % (Auto) Eos % (Auto) Baso % (Auto) Absolute Neuts (auto) Absolute Lymphs (auto) Absolute Monos (auto) Absolute Eos (auto) Absolute Basos (auto) Seg Neutrophils % VBG pH VBG pCO2 VBG HCO3 VBG Base Excess Sodium 139.0 Potassium 4.1 Chloride 113 H Carbon Dioxide 23 Anion Gap 3 L BUN 16 Creatinine 1.01 Est GFR ( Amer) > 60 Est GFR (MDRD) Non-Af 55 L Glucose 277 H POC Glucose 276 H Hemoglobin A1c % Serum Osmolality Calcium 8.5 Magnesium 1.9 Total Bilirubin 0.3 Direct Bilirubin 0.3 Neonat Total Bilirubin Not Reportable Neonat Direct Bilirubin Not Reportable Neonat Indirect Bili Not Reportable AST 21 ALT 17 Alkaline Phosphatase 124 Creatine Kinase CK-MB (CK-2) Troponin I Total Protein 4.9 L Albumin 2.2 L Triglycerides Cholesterol LDL Cholesterol Direct VLDL Cholesterol HDL Cholesterol Lipase TSH Free T4 Free T3 pg/mL Urine Color Urine Appearance Urine pH Ur Specific [place] Urine Protein Urine Glucose (UA) Urine Ketones Urine Blood Urine Nitrite Urine Bilirubin Urine Urobilinogen Ur Leukocyte Esterase Urine WBC (Auto) Urine RBC (Auto) Urine Bacteria (Auto) Urine Mucus (Auto) Urine Osmolality Urine Ascorbic Acid 11/25/18 11/25/18 11/25/18 09:25 10:09 10:09 WBC RBC Hgb Hct MCV MCH MCHC RDW Plt Count Lymph % (Auto) [place] % (Auto) Eos % (Auto) Baso % (Auto) Absolute Neuts (auto) Absolute Lymphs (auto) Absolute Monos (auto) Absolute Eos (auto) Absolute Basos (auto) Seg Neutrophils % VBG pH VBG pCO2 VBG HCO3 VBG Base Excess Sodium Potassium Chloride Carbon Dioxide Anion Gap BUN Creatinine Est GFR ( Amer) Est GFR (MDRD) Non-Af Glucose POC Glucose 225 H Hemoglobin A1c % Serum Osmolality Calcium Magnesium Total Bilirubin Direct Bilirubin Neonat Total Bilirubin Neonat Direct Bilirubin Neonat Indirect Bili AST ALT Alkaline Phosphatase Creatine Kinase 148 H CK-MB (CK-2) 2.80 Troponin I 0.016 Total Protein Albumin Triglycerides Cholesterol LDL Cholesterol Direct VLDL Cholesterol HDL Cholesterol Lipase TSH Free T4 Free T3 pg/mL Urine Color Urine Appearance Urine pH Ur Specific [place] Urine Protein Urine Glucose (UA) Urine Ketones Urine Blood Urine Nitrite Urine Bilirubin Urine Urobilinogen Ur Leukocyte Esterase Urine WBC (Auto) Urine RBC (Auto) Urine Bacteria (Auto) Urine Mucus (Auto) Urine Osmolality Urine Ascorbic Acid 11/25/18 11/25/18 11/25/18 11:58 15:20 15:20 WBC RBC Hgb Hct MCV MCH MCHC RDW Plt Count Lymph % (Auto) [place] % (Auto) Eos % (Auto) Baso % (Auto) Absolute Neuts (auto) Absolute Lymphs (auto) Absolute Monos (auto) Absolute Eos (auto) Absolute Basos (auto) Seg Neutrophils % VBG pH VBG pCO2 VBG HCO3 VBG Base Excess Sodium Potassium Chloride Carbon Dioxide Anion Gap BUN Creatinine Est GFR ( Amer) Est GFR (MDRD) Non-Af Glucose POC Glucose 225 H Hemoglobin A1c % Serum Osmolality Calcium Magnesium Total Bilirubin Direct Bilirubin Neonat Total Bilirubin Neonat Direct Bilirubin Neonat Indirect Bili AST ALT Alkaline Phosphatase Creatine Kinase 140 H CK-MB (CK-2) 2.54 Troponin I 0.016 Total Protein Albumin Triglycerides Cholesterol LDL Cholesterol Direct VLDL Cholesterol HDL Cholesterol Lipase TSH Free T4 Free T3 pg/mL Urine Color Urine Appearance Urine pH Ur Specific [place] Urine Protein Urine Glucose (UA) Urine Ketones Urine Blood Urine Nitrite Urine Bilirubin Urine Urobilinogen Ur Leukocyte Esterase Urine WBC (Auto) Urine RBC (Auto) Urine Bacteria (Auto) Urine Mucus (Auto) Urine Osmolality Urine Ascorbic Acid 11/25/18 11/25/18 16:38 21:14 WBC RBC Hgb Hct MCV MCH MCHC RDW Plt Count Lymph % (Auto) [place] % (Auto) Eos % (Auto) Baso % (Auto) Absolute Neuts (auto) Absolute Lymphs (auto) Absolute Monos (auto) Absolute Eos (auto) Absolute Basos (auto) Seg Neutrophils % VBG pH VBG pCO2 VBG HCO3 VBG Base Excess Sodium Potassium Chloride Carbon Dioxide Anion Gap BUN Creatinine Est GFR ( Amer) Est GFR (MDRD) Non-Af Glucose POC Glucose 209 H 230 H Hemoglobin A1c % Serum Osmolality Calcium Magnesium Total Bilirubin Direct Bilirubin Neonat Total Bilirubin Neonat Direct Bilirubin Neonat Indirect Bili AST ALT Alkaline Phosphatase Creatine Kinase CK-MB (CK-2) Troponin I Total Protein Albumin Triglycerides Cholesterol LDL Cholesterol Direct VLDL Cholesterol HDL Cholesterol Lipase TSH Free T4 Free T3 pg/mL Urine Color Urine Appearance Urine pH Ur Specific [place] Urine Protein Urine Glucose (UA) Urine Ketones Urine Blood Urine Nitrite Urine Bilirubin Urine Urobilinogen Ur Leukocyte Esterase Urine WBC (Auto) Urine RBC (Auto) Urine Bacteria (Auto) Urine Mucus (Auto) Urine Osmolality Urine Ascorbic Acid Chest X-Ray 11/22/18 19:46 IMPRESSION: No acute abnormality is identified. Knee X-Ray 11/23/18 00:00 IMPRESSION: No radiographic evidence for acute fracture of the right knee. IMPRESSION/RECOMMENDATION: 1. Diabetes mellitus with admission for hyperosmolar state with hyperglycemia. Seems to be resolved, but blood sugar still seems to be up. 2.Dilated cardiomyopathy with severely reduced LV ejection fraction of 25% 30%. To do Toprol-XL and Entresto. Will recommend holding the patient diuretics since patient seems to be significantly dehydrated. Patient appears to be well compensated. 3. Hypertension: Blood pressure well controlled. 4. Right groin abscess for incision and drainage under local and sedation. 5. Acute renal failure: Most likely secondary to overdiuresis 6. Obstructive sleep apnea by history. Continue CPAP at night. 7. Preoperative cardiac risk assessment. The patient would be an acceptable risk for incision and drainage procedure under local and sedation. Strongly recommend that the patient in the next month have a repeat echocardiogram to assess his LV ejection fraction. If the LV ejection fraction is 35% or below then the patient will be recommended to have a AICD. Will follow medications reviewed medication and management plan discussed with attending physician on the case. Also discussed with the surgical list.
[2018-11-25] MEDS: ATORVASTATIN CALCIUM 80 MG TABLET PO SCH (22:21)
[2018-11-25] MEDS: CEFTRIAXONE 1 GM/D5W RTU 1 GM/50 ML RTUPB IV SCH (23:07)
[2018-11-25 23:51] LABS: CREATINE KINASE MB 2.47 ng/mL (<4.55); TROPONIN I 0.016 ng/mL
[2018-11-26 06:14] LABS: HEMATOCRIT 38.4 % (36.0-47.0); HEMOGLOBIN 12.2 g/dL (12.0-15.5); MEAN CORPUSCULAR HEMOGLOBIN 25.2 pg (27.0-33.4); MEAN CORPUSCULAR HGB CONC 31.7 g/dL (32.0-36.0); MEAN CORPUSCULAR VOLUME 79 fl (80-97); PLATELET COUNT 154 10^3/uL (150-450); RED BLOOD COUNT 4.85 10^6/uL (3.72-5.28); RED CELL DISTRIBUTION WIDTH 19.5 % (11.5-14.0); WHITE BLOOD COUNT 5.4 10^3/uL (4.0-10.5)
[2018-11-26 06:32] LABS: ALBUMIN 2.2 g/dL (3.5-5.0); ALKALINE PHOSPHATASE 115 U/L (38-126); ANION GAP 6 (5-19); ASPARTATE AMINO TRANSFERASE 18 U/L (14-36); BILIRUBIN,DIRECT 0.1 mg/dL (0.0-0.4); BILIRUBIN,TOTAL 0.2 mg/dL (0.2-1.3); BLOOD UREA NITROGEN 15 mg/dL (7-20); CALCIUM 8.5 mg/dL (8.4-10.2); CARBON DIOXIDE 23 mmol/L (22-30); CHLORIDE 109 mmol/L (98-107); GLUCOSE 217 mg/dL (75-110); POTASSIUM 4.2 mmol/L (3.6-5.0); TOTAL PROTEIN 4.7 g/dL (6.3-8.2)
[2018-11-26 06:52] LABS: ABSOLUTE MONOCYTES # (MANUAL) 0.4 10^3/uL (0.1-1.4); BASOPHILS % (MANUAL) 0 % (0-2); EOSINOPHILS % (MANUAL) 0 % (0-6); LYMPHOCYTES % (MANUAL) 36 % (13-45); MONOCYTES % (MANUAL) 7 % (3-13); SEGMENTED NEUTROPHILS % (MAN) 56 % (42-78); TOTAL CELLS COUNTED 100
[2018-11-26] MEDS: GABAPENTIN 400 MG CAPSULE PO SCH ×3 (06:52→22:03)
[2018-11-26] MEDS: PANTOPRAZOLE SODIUM 40 MG TABLET.DR PO SCH ×2 (06:52→16:58)
[2018-11-26] MEDS: INSULIN REG, HUMAN 100 UNIT/ML 3 ML VIAL (PYX) SUBCUT SCH ×7 (06:53→22:02)
[2018-11-26 06:56] LABS: ANISOCYTOSIS 2+; OVALOCYTES SLIGHT; PLATELET COMMENT ADEQUATE; TEAR DROP CELLS SLIGHT
[2018-11-26] MEDS: OXYCODONE HCL IR 5 MG TABLET PO PRN (06:56)
[2018-11-26] MEDS: LEVOFLOXACIN 500 MG/D5W RTU 500 MG/100 ML RTUPB IV SCH (10:23)
[2018-11-26] MEDS ORDERED: OXYCODONE-ACETAMINOPHEN 5-325 MG TABLET PO PRN ×2 (10:25)
[2018-11-26] MEDS ORDERED: DIPHENHYDRAMINE HCL 50 MG/ML VIAL IV PRN (10:25)
[2018-11-26] MEDS ORDERED: FENTANYL CITRATE INJ/PF 100 MCG/2 ML AMPUL IV PRN ×3 (10:25)
[2018-11-26] MEDS ORDERED: MEPERIDINE HCL/PF INJ 25 MG/1 ML DISP.SYRIN IV PRN (10:25)
[2018-11-26] MEDS ORDERED: PROMETHAZINE HCL INJ 25 MG/1 ML VIAL IV PRN ×2 (10:25)
[2018-11-26] MEDS ORDERED: METOCLOPRAMIDE HCL INJ/PF 10 MG/2 ML SDV ONE (11:06)
[2018-11-26] MEDS ORDERED: ALBUTEROL SULFATE 0.083% NEB 2.5 MG/3 ML AMPUL NEB ONE (11:06)
[2018-11-26] MEDS ORDERED: FAMOTIDINE INJ/PF 20 MG/2 ML SDV IV ONE (11:06)
[2018-11-26] MEDS ORDERED: PROPOFOL INJ 200 MG/20 ML VIAL IV ONE (11:09)
[2018-11-26] MEDS ORDERED: MIDAZOLAM 2 MG/2 ML INJ ONE (11:09)
[2018-11-26] MEDS ORDERED: FENTANYL CITRATE INJ/PF 100 MCG/2 ML AMPUL ONE (11:09)
[2018-11-26] MEDS ORDERED: LIDOCAINE 2% INJ (20 MG/ML) 20 ML MDV ONE (11:10)
[2018-11-26] MEDS ORDERED: LIDOCAINE 0.5% INJ-PF (5 MG/ML) 50 ML SDV ONE (11:20)
[2018-11-26] MEDS: SUCRALFATE 1 GM TABLET PO SCH ×4 (13:35→22:04)
[2018-11-26] MEDS: DOCUSATE SODIUM 100 MG CAPSULE PO SCH ×2 (13:36→17:00)
[2018-11-26] MEDS: METOCLOPRAMIDE HCL 10 MG TABLET PO SCH ×3 (13:36→22:04)
[2018-11-26] MEDS: FAMOTIDINE 20 MG TABLET PO SCH ×4 (13:36→22:04)
[2018-11-26] MEDS: POTASSIUM CHLORIDE 10 MEQ CAPSULE.ER PO SCH ×3 (13:36→16:57)
[2018-11-26] MEDS: SACUBITRIL/VALSARTAN 49 MG/51 MG TABLET PO SCH ×2 (13:48→22:04)
[2018-11-26] MEDS: METOPROLOL SUCCINATE 25 MG TAB.SR.24H PO SCH (13:48)
[2018-11-26] MEDS: INSULIN GLARGINE,HUM.REC.ANLOG 1,000 UNIT/10 ML VIAL SUBCUT SCH ×2 (13:49→22:03)
[2018-11-26] MEDS: PAROXETINE HCL 20 MG TABLET PO SCH (13:49)
--- NOTE | 2018-11-26 14:04 | Operative Report ---
Operative Report DATE OF SURGERY: 11/26/18 Operative Report: Debridement right groin abscess PREOPERATIVE DIAGNOSIS: abscess right groin POSTOPERATIVE DIAGNOSIS: abscess right groin OPERATION: Sharp Debridement of abscess right groin SURGEON: CORINNE MUIR ANESTHESIA: LMAC TISSUE REMOVED OR ALTERED: abscess site right groin COMPLICATIONS: none ESTIMATED BLOOD LOSS: 2 ccs INTRAOPERATIVE FINDINGS: ABscess area about 2 cm right groin with minimal drainage PROCEDURE: After adequate IV sedation, the right groin was then prepped and drape in the usual sterile fashion while placing patient on supine position. Appropriate timeout was called. No evidence of drainage while squeezing the abscewss site. Local anesthesia was injected around the abscess site. The abscess area was then sharply excised with the use of scalpel and the whole specimen sent for C/S. About a 2x2x2 cm was excised. No abscess cavity went below the subcutaneous area. Hemostasis was then controlled with cautery. The cavity was then packed with iodoform gauze and dressed with 4x4 and tape. Patient tolerated well then brought to PACU in satisfactory condition.
--- NOTE | 2018-11-26 19:27 | PDOC PROGRESS REPORT ---
Subjective Progress Note for:: 11/26/18 Subjective:: No adverse events overnight. She had an I&D of a right groin abscess today. Eating and drinking without difficulty. Complains of knee pains with walking, but she is complained of that for years. Reason For Visit: SEVERE HYPERGLYCEMIA Physical Exam Vital Signs: Temp Pulse Resp BP Pulse Ox 97.5 F 80 14 136/74 H 96 11/26/18 15:45 11/26/18 15:45 11/26/18 15:45 11/26/18 15:45 11/26/18 15:45 Intake & Output 11/25/18 11/26/18 11/27/18 06:59 06:59 06:59 Intake Total 1949 2475 225 Output Total 3480 2450 0 Balance -1531 25 225 Weight 99.5 kg 99.5 kg General appearance: PRESENT: no acute distress, cooperative, disheveled, obese Respiratory exam: PRESENT: clear to auscultation rodrigue, symmetrical, unlabored. ABSENT: accessory muscle use, chest wall tenderness, crackles, prolonged expiratory phas, rhonchi, tachypnea, wheezes Cardiovascular exam: PRESENT: RRR, +S1, +S2 Pulses: PRESENT: normal carotid pulses Vascular exam: PRESENT: normal capillary refill GI/Abdominal exam: PRESENT: normal bowel sounds, soft. ABSENT: distended, guarding, rigid, tenderness Extremities exam: PRESENT: other - Right groin I&D site is covered with a clean bandage. ABSENT: clubbing, pedal edema Musculoskeletal exam: PRESENT: normal inspection. ABSENT: deformity Neurological exam: PRESENT: alert, awake, oriented to person, oriented to place, oriented to situation Psychiatric exam: PRESENT: appropriate affect, normal mood Skin exam: PRESENT: dry, warm Results Laboratory Results: 11/26/18 05:13 11/26/18 05:13 11/26/18 11/26/18 05:13 05:13 WBC 5.4 RBC 4.85 Hgb 12.2 Hct 38.4 MCV 79 L MCH 25.2 L MCHC 31.7 L RDW 19.5 H Plt Count 154 Seg Neutrophils % Not Reportable Sodium 137.5 Potassium 4.2 Chloride 109 H Carbon Dioxide 23 Anion Gap 6 BUN 15 Creatinine 1.15 Est GFR ( Amer) 57 L Glucose 217 H Calcium 8.5 Magnesium 1.9 Total Bilirubin 0.2 AST 18 Alkaline Phosphatase 115 Total Protein 4.7 L Albumin 2.2 L 11/22/18 11/22/18 11/25/18 20:05 20:05 10:09 Creatine Kinase 289 H 148 H CK-MB (CK-2) 5.72 H Troponin I 0.047 11/25/18 11/25/18 11/25/18 10:09 15:20 15:20 Creatine Kinase 140 H CK-MB (CK-2) 2.80 2.54 Troponin I 0.016 0.016 11/25/18 11/25/18 22:35 22:35 Creatine Kinase 144 H CK-MB (CK-2) 2.47 Troponin I 0.016 Impressions: Chest X-Ray 11/22/18 19:46 IMPRESSION: No acute abnormality is identified. CLINICAL HISTORY: 68 years, Female, chest pain COMPARISON: None. NUMBER OF VIEWS: TECHNIQUE: LIMITATIONS: None. FINDINGS: IMPRESSION: copyright 2010 [employer]- All Rights Reserved Knee X-Ray 11/23/18 00:00 IMPRESSION: No radiographic evidence for acute fracture of the right knee. Assessment and Plan - Diagnosis (1) Hyperosmolar non-ketotic state in patient with type 2 diabetes mellitus Is this a current diagnosis for this admission?: Yes Plan: Now resolved. Trying to adjust her insulin regimen to keep her blood sugars under control. (2) Right groin wound Qualifiers: Encounter type: initial encounter Qualified Code(s): S31.109A - Unspecified open wound of abdominal wall, unspecified quadrant without penetration into peritoneal cavity, initial encounter Is this a current diagnosis for this admission?: Yes Plan: Received I&D today. On empiric antibiotics. We will follow-up wound culture results and adjust coverage accordingly. (3) Chronic combined systolic and diastolic congestive heart failure Is this a current diagnosis for this admission?: Yes Plan: Continue home medications, not acutely exacerbated (4) Obesity (BMI 30.0-34.9) Is this a current diagnosis for this admission?: Yes Plan: Strongly encouraged lifestyle modification. - Time Time Spent with patient: 15-24 minutes
--- NOTE | 2018-11-26 21:04 | Progress Note ---
Provider Note Provider Note: CARDIOLOGY note Dr. Radha Terry on 11/26/2018. The patient cardiac status is stable. The patient is being wheeled down for surgery will see the patient later today if needed or will follow up the patient in the morning. Will not charge for today's visit. Did discuss with the daughter that the patient needs close cardiology follow-up as an outpatient.
[2018-11-26] MEDS: ATORVASTATIN CALCIUM 80 MG TABLET PO SCH (22:03)
[2018-11-26] MEDS: CEFTRIAXONE 1 GM/D5W RTU 1 GM/50 ML RTUPB IV SCH (22:04)
[2018-11-27] MEDS: GABAPENTIN 400 MG CAPSULE PO SCH ×3 (06:56→22:16)
[2018-11-27] MEDS: PANTOPRAZOLE SODIUM 40 MG TABLET.DR PO SCH ×2 (06:56→17:18)
[2018-11-27] MEDS: OXYCODONE HCL IR 5 MG TABLET PO PRN (07:56)
[2018-11-27] MEDS: METOCLOPRAMIDE HCL 10 MG TABLET PO SCH ×4 (07:57→22:16)
[2018-11-27] MEDS: SUCRALFATE 1 GM TABLET PO SCH ×4 (07:57→22:16)
[2018-11-27] MEDS: POTASSIUM CHLORIDE 10 MEQ CAPSULE.ER PO SCH ×3 (07:57→17:18)
[2018-11-27] MEDS: FAMOTIDINE 20 MG TABLET PO SCH ×4 (07:59→22:16)
--- NOTE | 2018-11-27 08:26 | PDOC PROGRESS REPORT ---
Subjective Progress Note for:: 11/27/18 Subjective:: minimal incisional pains Reason For Visit: SEVERE HYPERGLYCEMIA Physical Exam Vital Signs: Temp Pulse Resp BP Pulse Ox 98.3 F 70 18 115/56 L 91 L 11/27/18 03:39 11/27/18 06:45 11/27/18 03:39 11/27/18 03:39 11/27/18 03:39 Intake & Output 11/26/18 11/27/18 11/28/18 06:59 06:59 06:59 Intake Total 2475 1219 Output Total 2450 7675 Balance 25 -2106 Weight 99.5 kg 98.1 kg Exam: Packing removed from right groin wound. It looks clean and dry. Results Laboratory Results: 11/26/18 05:13 11/26/18 05:13 11/22/18 11/22/18 11/25/18 20:05 20:05 10:09 Creatine Kinase 289 H 148 H CK-MB (CK-2) 5.72 H Troponin I 0.047 11/25/18 11/25/18 11/25/18 10:09 15:20 15:20 Creatine Kinase 140 H CK-MB (CK-2) 2.80 2.54 Troponin I 0.016 0.016 11/25/18 11/25/18 22:35 22:35 Creatine Kinase 144 H CK-MB (CK-2) 2.47 Troponin I 0.016 Impressions: Chest X-Ray 11/22/18 19:46 IMPRESSION: No acute abnormality is identified. CLINICAL HISTORY: 68 years, Female, chest pain COMPARISON: None. NUMBER OF VIEWS: TECHNIQUE: LIMITATIONS: None. FINDINGS: IMPRESSION: copyright 2011 [employer]- All Rights Reserved Knee X-Ray 11/23/18 00:00 IMPRESSION: No radiographic evidence for acute fracture of the right knee. Assessment & Plan - Diagnosis (1) Abscess of right groin Is this a current diagnosis for this admission?: Yes - Time Time Spent with patient: 15-24 minutes - Inpatient Certification Medical Necessity: Need for IV Antibiotics - Plan Summary Plan Summary: Right groin wound looks good Continue IV antibiotics while waiting for final C/S results
[2018-11-27] MEDS: PAROXETINE HCL 20 MG TABLET PO SCH (09:20)
[2018-11-27] MEDS: DOCUSATE SODIUM 100 MG CAPSULE PO SCH ×2 (09:20→17:18)
[2018-11-27] MEDS: METOPROLOL SUCCINATE 25 MG TAB.SR.24H PO SCH (09:21)
[2018-11-27] MEDS: LEVOFLOXACIN 500 MG/D5W RTU 500 MG/100 ML RTUPB IV SCH (09:22)
[2018-11-27] MEDS: SACUBITRIL/VALSARTAN 49 MG/51 MG TABLET PO SCH ×2 (09:22→22:16)
[2018-11-27] MEDS: INSULIN REG, HUMAN 100 UNIT/ML 3 ML VIAL (PYX) SUBCUT SCH ×4 (09:22→22:15)
[2018-11-27] MEDS: INSULIN GLARGINE,HUM.REC.ANLOG 1,000 UNIT/10 ML VIAL SUBCUT SCH ×2 (10:44→22:15)
[2018-11-27] MEDS ORDERED: FLUCONAZOLE 200 MG/NS RTU 200 MG/100 ML RTUPB IV SCH (17:19)
--- NOTE | 2018-11-27 17:50 | PDOC PROGRESS REPORT ---
Subjective Progress Note for:: 11/27/18 Subjective:: No adverse events overnight. Blood sugars have been in the 300s consistently. She is not exactly sure what kind of insulin she was taking at home or how much. When I came in the room she was eating a bag of onion rings. Her hemoglobin A1c was greater than 14%. Reason For Visit: SEVERE HYPERGLYCEMIA Physical Exam Vital Signs: Temp Pulse Resp BP Pulse Ox 98.1 F 76 16 139/76 H 96 11/27/18 12:26 11/27/18 14:00 11/27/18 12:26 11/27/18 12:26 11/27/18 12:26 Intake & Output 11/26/18 11/27/18 11/28/18 06:59 06:59 06:59 Intake Total 2475 1219 100 Output Total 2450 3325 Balance 25 -2106 100 Weight 99.5 kg 98.1 kg General appearance: PRESENT: no acute distress, cooperative, disheveled, obese Respiratory exam: PRESENT: clear to auscultation rodrigue, symmetrical, unlabored. ABSENT: accessory muscle use, chest wall tenderness, crackles, prolonged expiratory phas, rhonchi, tachypnea, wheezes Cardiovascular exam: PRESENT: RRR, +S1, +S2 Pulses: PRESENT: normal carotid pulses Vascular exam: PRESENT: normal capillary refill GI/Abdominal exam: PRESENT: normal bowel sounds, soft. ABSENT: distended, guarding, rigid, tenderness Extremities exam: PRESENT: other - Right groin I&D site is covered with a clean bandage. ABSENT: clubbing, pedal edema Musculoskeletal exam: PRESENT: normal inspection. ABSENT: deformity Neurological exam: PRESENT: alert, awake, oriented to person, oriented to place, oriented to situation Psychiatric exam: PRESENT: appropriate affect, normal mood Skin exam: PRESENT: dry, warm Results Laboratory Results: 11/26/18 05:13 11/26/18 05:13 11/24/18 08:55 Groin - Abscess Gram Stain - Final 11/24/18 08:55 Groin - Abscess Wound Culture - Final C.albicans/C.dubliniensis Prevotella Species 11/22/18 11/22/18 11/25/18 20:05 20:05 10:09 Creatine Kinase 289 H 148 H CK-MB (CK-2) 5.72 H Troponin I 0.047 11/25/18 11/25/18 11/25/18 10:09 15:20 15:20 Creatine Kinase 140 H CK-MB (CK-2) 2.80 2.54 Troponin I 0.016 0.016 11/25/18 11/25/18 22:35 22:35 Creatine Kinase 144 H CK-MB (CK-2) 2.47 Troponin I 0.016 Impressions: Chest X-Ray 11/22/18 19:46 IMPRESSION: No acute abnormality is identified. CLINICAL HISTORY: 68 years, Female, chest pain COMPARISON: None. NUMBER OF VIEWS: TECHNIQUE: LIMITATIONS: None. FINDINGS: IMPRESSION: copyright 2010 [employer]- All Rights Reserved Knee X-Ray 11/23/18 00:00 IMPRESSION: No radiographic evidence for acute fracture of the right knee. Assessment and Plan - Diagnosis (1) Hyperosmolar non-ketotic state in patient with type 2 diabetes mellitus Is this a current diagnosis for this admission?: Yes Plan: Now resolved. Blood sugars are still high. Increase her Lantus today. Had a long discussion with her about dietary choices and her perceived lack of compliance with her diet outside of the hospital. We told her to eat only what we bring her while she is here. (2) Right groin wound Qualifiers: Encounter type: initial encounter Qualified Code(s): S31.109A - Unspecified open wound of abdominal wall, unspecified quadrant without penetration into peritoneal cavity, initial encounter Is this a current diagnosis for this admission?: Yes Plan: Is growing out a Prevotella species but has a much higher growth of Concepcion. I am going to stop the Levaquin and continue Rocephin for now, and will add Diflucan. (3) Chronic combined systolic and diastolic congestive heart failure Is this a current diagnosis for this admission?: Yes Plan: Currently not exacerbated, but if she keeps eating onion rings like she was today and then she is going to failure again. We will make sure she is medically optimized. (4) Obesity (BMI 30.0-34.9) Is this a current diagnosis for this admission?: Yes Plan: Again we had a long discussion about her dietary choices and I strongly encouraged lifestyle modification - Time Time Spent with patient: 15-24 minutes
[2018-11-27] MEDS: CEFTRIAXONE 1 GM/D5W RTU 1 GM/50 ML RTUPB IV SCH (22:15)
[2018-11-27] MEDS: ATORVASTATIN CALCIUM 80 MG TABLET PO SCH (22:15)
[2018-11-28] MEDS: GABAPENTIN 400 MG CAPSULE PO SCH ×3 (05:47→21:58)
[2018-11-28] MEDS: PANTOPRAZOLE SODIUM 40 MG TABLET.DR PO SCH ×2 (05:47→16:45)
[2018-11-28] MEDS: SUCRALFATE 1 GM TABLET PO SCH ×4 (08:05→21:58)
[2018-11-28] MEDS: METOCLOPRAMIDE HCL 10 MG TABLET PO SCH ×4 (08:05→21:59)
[2018-11-28] MEDS: FAMOTIDINE 20 MG TABLET PO SCH ×4 (08:05→21:59)
[2018-11-28] MEDS: POTASSIUM CHLORIDE 10 MEQ CAPSULE.ER PO SCH ×3 (08:05→16:45)
[2018-11-28] MEDS: INSULIN REG, HUMAN 100 UNIT/ML 3 ML VIAL (PYX) SUBCUT SCH ×4 (08:06→21:58)
[2018-11-28] MEDS ORDERED: LEVOFLOXACIN 500 MG TABLET PO SCH (10:00)
[2018-11-28] MEDS: SACUBITRIL/VALSARTAN 49 MG/51 MG TABLET PO SCH ×2 (11:01→21:58)
[2018-11-28] MEDS: DOCUSATE SODIUM 100 MG CAPSULE PO SCH ×2 (11:01→17:08)
[2018-11-28] MEDS: FLUCONAZOLE 100 MG TABLET PO SCH (11:02)
[2018-11-28] MEDS: PAROXETINE HCL 20 MG TABLET PO SCH (11:02)
[2018-11-28] MEDS: INSULIN GLARGINE,HUM.REC.ANLOG 1,000 UNIT/10 ML VIAL SUBCUT SCH ×2 (11:02→21:57)
[2018-11-28] MEDS: METOPROLOL SUCCINATE 25 MG TAB.SR.24H PO SCH (11:02)
[2018-11-28] MEDS: OXYCODONE HCL IR 5 MG TABLET PO PRN ×2 (11:09→22:07)
--- NOTE | 2018-11-28 15:53 | PDOC PROGRESS REPORT ---
Subjective Progress Note for:: 11/28/18 Subjective:: No adverse events overnight. No new complaints. Vital signs been stable. We increased her Lantus yesterday and her blood sugars have improved a little bit. Reason For Visit: SEVERE HYPERGLYCEMIA Physical Exam Vital Signs: Temp Pulse Resp BP Pulse Ox 98.1 F 78 18 153/83 H 94 11/28/18 11:46 11/28/18 14:00 11/28/18 11:46 11/28/18 11:46 11/28/18 11:46 Intake & Output 11/27/18 11/28/18 11/29/18 06:59 06:59 06:59 Intake Total 1219 2312 680 Output Total 3327 4325 700 Balance -2105 Weight 98.1 kg 97.5 kg General appearance: PRESENT: no acute distress, cooperative, disheveled, obese Respiratory exam: PRESENT: clear to auscultation rodrigue, symmetrical, unlabored. ABSENT: accessory muscle use, chest wall tenderness, crackles, prolonged expiratory phas, rhonchi, tachypnea, wheezes Cardiovascular exam: PRESENT: RRR, +S1, +S2 Pulses: PRESENT: normal carotid pulses Vascular exam: PRESENT: normal capillary refill GI/Abdominal exam: PRESENT: normal bowel sounds, soft. ABSENT: distended, guarding, rigid, tenderness Extremities exam: PRESENT: other - Right groin I&D site is covered with a clean bandage. ABSENT: clubbing, pedal edema Musculoskeletal exam: PRESENT: normal inspection. ABSENT: deformity Neurological exam: PRESENT: alert, awake, oriented to person, oriented to place, oriented to situation Psychiatric exam: PRESENT: appropriate affect, normal mood Skin exam: PRESENT: dry, warm Results Laboratory Results: 11/26/18 05:13 11/26/18 05:13 11/24/18 08:55 Groin - Abscess Gram Stain - Final 11/24/18 08:55 Groin - Abscess Wound Culture - Final C.albicans/C.dubliniensis Prevotella Species 11/22/18 11/22/18 11/25/18 20:05 20:05 10:09 Creatine Kinase 289 H 148 H CK-MB (CK-2) 5.72 H Troponin I 0.047 11/25/18 11/25/18 11/25/18 10:09 15:20 15:20 Creatine Kinase 140 H CK-MB (CK-2) 2.80 2.54 Troponin I 0.016 0.016 11/25/18 11/25/18 22:35 22:35 Creatine Kinase 144 H CK-MB (CK-2) 2.47 Troponin I 0.016 Impressions: Chest X-Ray 11/22/18 19:46 IMPRESSION: No acute abnormality is identified. CLINICAL HISTORY: 68 years, Female, chest pain COMPARISON: None. NUMBER OF VIEWS: TECHNIQUE: LIMITATIONS: None. FINDINGS: IMPRESSION: copyright 2011 [employer]- All Rights Reserved Knee X-Ray 11/23/18 00:00 IMPRESSION: No radiographic evidence for acute fracture of the right knee. Assessment and Plan - Diagnosis (1) Hyperosmolar non-ketotic state in patient with type 2 diabetes mellitus Is this a current diagnosis for this admission?: Yes Plan: Now resolved. Blood sugars are still high but improved. Increased her Lantus with positive effect. Had a long discussion with her about dietary choices and her perceived lack of compliance with her diet outside of the hospital. We told her to eat only what we bring her while she is here. (2) Right groin wound Qualifiers: Encounter type: initial encounter Qualified Code(s): S31.109A - Unspecified open wound of abdominal wall, unspecified quadrant without penetration into peritoneal cavity, initial encounter Is this a current diagnosis for this admission?: Yes Plan: Is growing out a Prevotella species but has a much higher growth of Concepcion. I am going to continue Rocephin for now, and will continue Diflucan. (3) Chronic combined systolic and diastolic congestive heart failure Is this a current diagnosis for this admission?: Yes Plan: Currently not exacerbated. We will make sure she is medically optimized. Dr. Terry is going to get her set up with a LifeVest and will follow her as an outpatient. (4) Obesity (BMI 30.0-34.9) Is this a current diagnosis for this admission?: Yes Plan: I strongly encouraged lifestyle modification - Time Time Spent with patient: 15-24 minutes
[2018-11-28] MEDS: CEFTRIAXONE 1 GM/D5W RTU 1 GM/50 ML RTUPB IV SCH (21:57)
[2018-11-28] MEDS: ATORVASTATIN CALCIUM 80 MG TABLET PO SCH (21:58)
--- NOTE | 2018-11-28 22:54 | Progress Note ---
Provider Note Provider Note: CARDIOLOGY PROGRESS NOTE by Dr. Radha Terry on 11/28/2018. SUBJECTIVE: The patient is afebrile. She denies any pain in the groin. She has no chest pain or discomfort. There is no shortness of breath. There is no PND orthopnea. There is no arrhythmia seen on the monitor. There is no dizziness or palpitations. There is no TIA CVA symptoms. Physical EXAMINATION: The patient mild to moderately obese. In no acute distress. Selected Entries 11/28/18 07:10 Temperature 97.9 F Temperature Oral Source Pulse Rate 78 Respiratory 18 Rate Blood Pressure 135/68 H Blood Pressure 90 Mean BP Location Right Arm BP Position Supine O2 Sat by Pulse 91 L Oximetry Oxygen Delivery Room Air Method HEAD: Is atraumatic normocephalic. EYES: Pupils equal round regular reactive light accommodation. Extraocular movements are normal there is no conjunctival pallor. There is no scleral icterus. EARS: Tympanic membranes are intact. External auditory canals are clear. NOSE: There is no deviated nasal septum. There is no inflammation of the nasal mucous membrane. MOUTH: Mucous membranes of mouth are moist. The patient's oral cavity is modified Mallampati classification class IV. There is no bleeding from the gums. THROAT: There is no exudates in the throat. There is no redness of the oropharynx. SKIN: There is no skin rashes or skin lesions. There is no particular ecchymosis. NECK: Is supple. There is no definite JVD. Carotids are equal there is no bruit. There is no lymphadenopathy. There is no accessory muscle respiration use. There is no goiter. Trachea central. LUNGS: There is diminished air entry prolonged expiration without any rhonchi rales or wheezing. On percussion there is hyperresonance throughout. On palpation there is no chest wall tenderness. HEART: S1-S2 is heard. There is no S3 gallop. There is no S4 gallop. There is murmur of mitral regurgitation and tricuspid regurgitation present. There is no rub. ABDOMEN: Is obese there is no paraspinal megaly. Bowel sounds are well heard. There is no tender areas of masses. EXTREMITIES there is an abscess which is dressed on the right groin. Left femoral pulses diminished. Leg pulses are diminished. There is no femoral bruits. There is trace to mild pedal edema. There is no DVT or cellulitis. There is no calf tenderness. 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 PSYCHIATRIC: The patient judgment insight seems to be intact although the patient's is slightly of slow mentation. Abnormal - 24 hr 11/28/18 11/28/18 11/28/18 07:41 11:42 15:45 POC Glucose 196 H 239 H 228 H 11/28/18 21:49 POC Glucose 262 H Chest X-Ray 11/22/18 19:46 IMPRESSION: No acute abnormality is identified. CLINICAL HISTORY: 68 years, Female, chest pain COMPARISON: None. NUMBER OF VIEWS: TECHNIQUE: LIMITATIONS: None. FINDINGS: IMPRESSION: copyright 2010 [employer]- All Rights Reserved Knee X-Ray 11/23/18 00:00 IMPRESSION: No radiographic evidence for acute fracture of the right knee. IMPRESSION/RECOMMENDATION: 1. Diabetes mellitus with admission for hyperosmolar state with hyperglycemia. Seems to be resolved, but blood sugar still seems to be up. 2.Dilated cardiomyopathy with severely reduced LV ejection fraction of 25% 30%. To do Toprol-XL and Entresto. Will recommend holding the patient diuretics since patient seems to be significantly dehydrated. Patient appears to be well compensated. Since the patient has an infective process, and hence an AICD cannot be placed at present. Hence will get the patient to wear a LifeVest. Will discuss with the patient's daughter. 3. Hypertension: Blood pressure well controlled. 4. Right groin abscess: Status post incision and drainage. Continue antibiotics. 5. Acute renal failure: Most likely secondary to overdiuresis 6. Obstructive sleep apnea by history. Continue CPAP at night. Medications reviewed. Medical decision making is high complexity, in view of the physicians made to have the patient wear a LifeVest. Will order a LifeVest. But first will talk to the patient's daughter. This is due to the fact that the patient is not very intuitive about her diagnosis, and her morbidities. Also she has poor understanding of her disease processes and she is very noncompliant with her diet. Note that the patient the patient's daughter have changed her cardiology care under me now onwards. Discussed with the hospitalist taking care of the patient. 40 minutes spent on this patient with more than 50% time spent in direct patient care. Will follow.
[2018-11-29] MEDS: PANTOPRAZOLE SODIUM 40 MG TABLET.DR PO SCH ×2 (05:29→17:33)
[2018-11-29] MEDS: GABAPENTIN 400 MG CAPSULE PO SCH ×2 (05:29→13:15)
[2018-11-29 05:46] LABS: ALBUMIN 2.3 g/dL (3.5-5.0); ALKALINE PHOSPHATASE 102 U/L (38-126); ASPARTATE AMINO TRANSFERASE 18 U/L (14-36); BILIRUBIN,DIRECT 0.1 mg/dL (0.0-0.4); BILIRUBIN,TOTAL 0.3 mg/dL (0.2-1.3); BLOOD UREA NITROGEN 18 mg/dL (7-20); CALCIUM 8.8 mg/dL (8.4-10.2); GLUCOSE 146 mg/dL (75-110); POTASSIUM 4.2 mmol/L (3.6-5.0)
[2018-11-29 05:51] LABS: CARBON DIOXIDE 30 mmol/L (22-30); CHLORIDE 104 mmol/L (98-107)
[2018-11-29 05:53] LABS: ANION GAP 4 (5-19)
[2018-11-29] MEDS: INSULIN REG, HUMAN 100 UNIT/ML 3 ML VIAL (PYX) SUBCUT SCH ×4 (09:10→23:19)
[2018-11-29] MEDS: POTASSIUM CHLORIDE 10 MEQ CAPSULE.ER PO SCH ×3 (09:10→17:33)
[2018-11-29] MEDS: FAMOTIDINE 20 MG TABLET PO SCH ×4 (09:10→23:09)
[2018-11-29] MEDS: SUCRALFATE 1 GM TABLET PO SCH ×4 (09:10→23:09)
[2018-11-29] MEDS: METOCLOPRAMIDE HCL 10 MG TABLET PO SCH ×4 (09:10→23:09)
[2018-11-29] MEDS: PAROXETINE HCL 20 MG TABLET PO SCH (09:50)
[2018-11-29] MEDS: DOCUSATE SODIUM 100 MG CAPSULE PO SCH ×2 (09:51→17:33)
[2018-11-29] MEDS: FLUCONAZOLE 100 MG TABLET PO SCH (09:51)
[2018-11-29] MEDS: METOPROLOL SUCCINATE 25 MG TAB.SR.24H PO SCH (09:51)
[2018-11-29] MEDS: SACUBITRIL/VALSARTAN 49 MG/51 MG TABLET PO SCH ×2 (09:51→22:25)
[2018-11-29] MEDS: INSULIN GLARGINE,HUM.REC.ANLOG 1,000 UNIT/10 ML VIAL SUBCUT SCH ×2 (09:51→23:18)
[2018-11-29] MEDS: OXYCODONE HCL IR 5 MG TABLET PO PRN ×2 (13:15→23:17)
--- NOTE | 2018-11-29 17:17 | PDOC PROGRESS REPORT ---
Subjective Progress Note for:: 11/29/18 Subjective:: No adverse events overnight. No new complaints. Vital signs been stable. Blood sugar control has improved today. No fevers. Reason For Visit: SEVERE HYPERGLYCEMIA Physical Exam Vital Signs: Temp Pulse Resp BP Pulse Ox 98.3 F 76 16 130/69 H 93 11/29/18 10:53 11/29/18 14:00 11/29/18 10:53 11/29/18 10:53 11/29/18 10:53 Intake & Output 11/28/18 11/29/18 11/30/18 06:59 06:59 06:59 Intake Total 2312 2130 Output Total 4324 4000 Weight 97.5 kg 96.6 kg General appearance: PRESENT: no acute distress, cooperative, disheveled, obese Respiratory exam: PRESENT: clear to auscultation rodrigue, symmetrical, unlabored. ABSENT: accessory muscle use, chest wall tenderness, crackles, prolonged expiratory phas, rhonchi, tachypnea, wheezes Cardiovascular exam: PRESENT: RRR, +S1, +S2 Pulses: PRESENT: normal carotid pulses Vascular exam: PRESENT: normal capillary refill GI/Abdominal exam: PRESENT: normal bowel sounds, soft. ABSENT: distended, guarding, rigid, tenderness Extremities exam: PRESENT: other - Right groin I&D site is covered with a clean bandage. ABSENT: clubbing, pedal edema Musculoskeletal exam: PRESENT: normal inspection. ABSENT: deformity Neurological exam: PRESENT: alert, awake, oriented to person, oriented to place, oriented to situation Psychiatric exam: PRESENT: appropriate affect, normal mood Skin exam: PRESENT: dry, warm Results Laboratory Results: 11/26/18 05:13 11/29/18 05:02 11/29/18 05:02 Sodium 137.7 Potassium 4.2 Chloride 104 Carbon Dioxide 30 Anion Gap 4 L BUN 18 Creatinine 1.27 H Est GFR ( Amer) 51 L Glucose 146 H Calcium 8.8 Total Bilirubin 0.3 AST 18 Alkaline Phosphatase 102 Total Protein 5.0 L Albumin 2.3 L 11/26/18 11:50 Groin - Abscess Gram Stain - Final 11/26/18 11:50 Groin - Abscess Wound Culture - Final Enterococcus Faecalis(Group D) C.albicans/C.dubliniensis Prevotella Species 11/22/18 11/22/1811/25/19 20:05 20:05 10:09 Creatine Kinase 289 H 148 H CK-MB (CK-2) 5.72 H Troponin I 0.047 11/25/18 11/25/18 11/25/18 10:09 15:20 15:20 Creatine Kinase 140 H CK-MB (CK-2) 2.80 2.54 Troponin I 0.016 0.016 11/25/18 11/25/18 22:35 22:35 Creatine Kinase 144 H CK-MB (CK-2) 2.47 Troponin I 0.016 Impressions: Chest X-Ray 11/22/18 19:46 IMPRESSION: No acute abnormality is identified. CLINICAL HISTORY: 68 years, Female, chest pain COMPARISON: None. NUMBER OF VIEWS: TECHNIQUE: LIMITATIONS: None. FINDINGS: IMPRESSION: copyright 2011 [employer]- All Rights Reserved Knee X-Ray 11/23/18 00:00 IMPRESSION: No radiographic evidence for acute fracture of the right knee. Assessment and Plan - Diagnosis (1) Hyperosmolar non-ketotic state in patient with type 2 diabetes mellitus Is this a current diagnosis for this admission?: Yes Plan: Now resolved. Blood sugars are still high but improved. Increased her Lantus with positive effect. Had a long discussion with her about dietary choices and her perceived lack of compliance with her diet outside of the hospital. We told her to eat only what we bring her while she is here. (2) Right groin wound Qualifiers: Encounter type: initial encounter Qualified Code(s): S31.109A - Unspecified open wound of abdominal wall, unspecified quadrant without penetration into peritoneal cavity, initial encounter Is this a current diagnosis for this admission?: Yes Plan: Is growing out a Prevotella species but has a much higher growth of Concepcion. I am going to continue Rocephin for now, and will continue Diflucan. (3) Chronic combined systolic and diastolic congestive heart failure Is this a current diagnosis for this admission?: Yes Plan: Currently not exacerbated. We will make sure she is medically optimized. Dr. Terry is going to get her set up with a LifeVest and will follow her as an outpatient. When she gets a LifeVest she can be discharged. (4) Obesity (BMI 30.0-34.9) Is this a current diagnosis for this admission?: Yes Plan: I strongly encouraged lifestyle modification - Time Time Spent with patient: 15-24 minutes
--- NOTE | 2018-11-29 19:59 | Progress Note ---
Provider Note Provider Note: CARDIOLOGY PROGRESS NOTE by Dr. Radha Terry on 11/29/2018. SUBJECTIVE: The patient denies any chest pain or discomfort. She has no PND orthopnea or shortness of breath. There is no arrhythmia seen on the monitor. There is no leg edema. She still does not seem to understand the concept of life vest, and the indications of this usage. I am still unable to get hold of the patient's daughter. Message left for the daughter to call me. PHYSICAL EXAMINATION: The patient mildly obese. She is in no acute distress. Selected Entries 11/29/18 11/29/18 11/29/18 07:42 08:11 10:00 Temperature 97.9 F Temperature Oral Source Pulse Rate 72 Respiratory 18 Rate Blood Pressure 144/98 H Blood Pressure 113 Mean BP Location Left Arm BP Position Supine O2 Sat by Pulse 96 95 Oximetry Oxygen Delivery Room Air Method ( includes room air) HEAD: Is atraumatic normocephalic. EYES: Pupils equal round regular reactive light accommodation. Extraocular movements are normal there is no conjunctival pallor. There is no scleral icterus. EARS: Tympanic membranes are intact. External auditory canals are clear. NOSE: There is no deviated nasal septum. There is no inflammation of the nasal mucous membrane. MOUTH: Mucous membranes of mouth are moist. The patient's oral cavity is modified Mallampati classification class IV. There is no bleeding from the gums. THROAT: There is no exudates in the throat. There is no redness of the oropharynx. SKIN: There is no skin rashes or skin lesions. There is no particular ecchymosis. NECK: Is supple. There is no definite JVD. Carotids are equal there is no bruit. There is no lymphadenopathy. There is no accessory muscle respiration use. There is no goiter. Trachea central. LUNGS: There is diminished air entry prolonged expiration without any rhonchi rales or wheezing. On percussion there is hyperresonance throughout. On palpation there is no chest wall tenderness. HEART: S1-S2 is heard. There is no S3 gallop. There is no S4 gallop. There is murmur of mitral regurgitation and tricuspid regurgitation present. There is no rub. ABDOMEN: Is obese there is no paraspinal megaly. Bowel sounds are well heard. There is no tender areas of masses. EXTREMITIES there is an abscess which is dressed on the right groin. Left femoral pulses diminished. Leg pulses are diminished. There is no femoral bruits. There is trace to mild pedal edema. There is no DVT or cellulitis. There is no calf tenderness. 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 PSYCHIATRIC: The patient judgment insight seems to be intact although the patient's is slightly of slow mentation. Labs- All tests 24 hr 11/28/18 11/29/18 11/29/18 21:49 05:02 07:40 Sodium 137.7 Potassium 4.2 Chloride 104 Carbon Dioxide 30 Anion Gap 4 L BUN 18 Creatinine 1.27 H Est GFR ( Amer) 51 L Est GFR (MDRD) Non-Af 42 L Glucose 146 H POC Glucose 262 H 99 Calcium 8.8 Total Bilirubin 0.3 Direct Bilirubin 0.1 Neonat Total Bilirubin Not Reportable Neonat Direct Bilirubin Not Reportable Neonat Indirect Bili Not Reportable AST 18 ALT 13 Alkaline Phosphatase 102 Total Protein 5.0 L Albumin 2.3 L 11/29/18 11/29/18 10:51 16:27 Sodium Potassium Chloride Carbon Dioxide Anion Gap BUN Creatinine Est GFR ( Amer) Est GFR (MDRD) Non-Af Glucose POC Glucose 179 H 196 H Calcium Total Bilirubin Direct Bilirubin Neonat Total Bilirubin Neonat Direct Bilirubin Neonat Indirect Bili AST ALT Alkaline Phosphatase Total Protein Albumin Chest X-Ray 11/22/18 19:46 IMPRESSION: No acute abnormality is identified. CLINICAL HISTORY: 68 years, Female, chest pain COMPARISON: None. NUMBER OF VIEWS: TECHNIQUE: LIMITATIONS: None. FINDINGS: IMPRESSION: copyright 2011 [employer]- All Rights Reserved Knee X-Ray 11/23/18 00:00 IMPRESSION: No radiographic evidence for acute fracture of the right knee. IMPRESSION/RECOMMENDATION: 1. Diabetes mellitus with admission for hyperosmolar state with hyperglycemia. Seems to be resolved, but blood sugar still seems to be up. 2.Dilated cardiomyopathy with severely reduced LV ejection fraction of 25% 30%. To do Toprol-XL and Entresto. Will recommend holding the patient diuretics since patient seems to be significantly dehydrated. Patient appears to be well compensated. Since the patient has an infective process, and hence an AICD cannot be placed at present. Hence will get the patient to wear a LifeVest. Will discuss with the patient's daughter. 3. Hypertension: Blood pressure well controlled. 4. Right groin abscess: Status post incision and drainage. Continue antibiotics. 5. Acute renal failure: Most likely secondary to overdiuresis 6. Obstructive sleep apnea by history. Continue CPAP at night. Medications reviewed. Medical decision making is high complexity, in view of the physicians made to have the patient wear a LifeVest. Will order a LifeVest. But first will talk to the patient's daughter. This is due to the fact that the patient is not very intuitive about her diagnosis, and her morbidities. Also she has poor understanding of her disease processes and she is very noncompliant with her diet. Discussed with the hospitalist taking care of the patient. 40 minutes spent on this patient with more than 50% time spent in direct patient care. Will follow.
[2018-11-29] MEDS: CEFTRIAXONE 1 GM/D5W RTU 1 GM/50 ML RTUPB IV SCH (23:02)
[2018-11-29] MEDS: ATORVASTATIN CALCIUM 80 MG TABLET PO SCH (23:09)
[2018-11-29] MEDS: TEMAZEPAM 15 MG CAPSULE PO PRN (23:18)
[2018-11-30] MEDS: GABAPENTIN 400 MG CAPSULE PO SCH ×4 (03:48→21:50)
[2018-11-30] MEDS: FAMOTIDINE 20 MG TABLET PO SCH ×4 (09:36→21:50)
[2018-11-30] MEDS: DOCUSATE SODIUM 100 MG CAPSULE PO SCH ×2 (09:36→17:04)
[2018-11-30] MEDS: SUCRALFATE 1 GM TABLET PO SCH ×4 (09:36→21:50)
[2018-11-30] MEDS: SACUBITRIL/VALSARTAN 49 MG/51 MG TABLET PO SCH ×2 (09:36→21:50)
[2018-11-30] MEDS: POTASSIUM CHLORIDE 10 MEQ CAPSULE.ER PO SCH ×3 (09:36→17:02)
[2018-11-30] MEDS: PAROXETINE HCL 20 MG TABLET PO SCH (09:36)
[2018-11-30] MEDS: FLUCONAZOLE 100 MG TABLET PO SCH (09:36)
[2018-11-30] MEDS: METOCLOPRAMIDE HCL 10 MG TABLET PO SCH ×4 (09:36→21:50)
[2018-11-30] MEDS: INSULIN REG, HUMAN 100 UNIT/ML 3 ML VIAL (PYX) SUBCUT SCH ×4 (09:37→21:51)
[2018-11-30] MEDS: METOPROLOL SUCCINATE 25 MG TAB.SR.24H PO SCH (09:37)
[2018-11-30] MEDS: INSULIN GLARGINE,HUM.REC.ANLOG 1,000 UNIT/10 ML VIAL SUBCUT SCH ×2 (09:40→21:50)
[2018-11-30] MEDS: PANTOPRAZOLE SODIUM 40 MG TABLET.DR PO SCH ×2 (09:41→17:02)
[2018-11-30] MEDS ORDERED: OXYCODONE HCL IR 5 MG TABLET PO PRN (15:01)
--- NOTE | 2018-11-30 16:22 | PDOC PROGRESS REPORT ---
Subjective Progress Note for:: 11/30/18 Subjective:: No adverse events overnight. No new complaints. Vital signs been stable. Still waiting for her LifeVest. No fevers. Reason For Visit: SEVERE HYPERGLYCEMIA Physical Exam Vital Signs: Temp Pulse Resp BP Pulse Ox 97.8 F 73 18 112/57 L 100 11/30/18 11:09 11/30/18 14:00 11/30/18 11:09 11/30/18 11:09 11/30/18 11:09 Intake & Output 11/29/18 11/30/18 12/01/18 06:59 06:59 06:59 Intake Total 2130 1580 Output Total 3550 4400 Balance -1420 -2820 Weight 96.6 kg 94.8 kg General appearance: PRESENT: no acute distress, cooperative, disheveled, obese Respiratory exam: PRESENT: clear to auscultation rodrigue, symmetrical, unlabored. ABSENT: accessory muscle use, chest wall tenderness, crackles, prolonged expiratory phas, rhonchi, tachypnea, wheezes Cardiovascular exam: PRESENT: RRR, +S1, +S2 Pulses: PRESENT: normal carotid pulses Vascular exam: PRESENT: normal capillary refill GI/Abdominal exam: PRESENT: normal bowel sounds, soft. ABSENT: distended, guarding, rigid, tenderness Extremities exam: PRESENT: other - Right groin I&D site is covered with a clean bandage. ABSENT: clubbing, pedal edema Musculoskeletal exam: PRESENT: normal inspection. ABSENT: deformity Neurological exam: PRESENT: alert, awake, oriented to person, oriented to place, oriented to situation Psychiatric exam: PRESENT: appropriate affect, normal mood Skin exam: PRESENT: dry, warm Results Laboratory Results: 11/26/18 05:13 11/29/18 05:02 11/26/18 11:50 Groin - Abscess Gram Stain - Final 11/26/18 11:50 Groin - Abscess Wound Culture - Final Enterococcus Faecalis(Group D) C.albicans/C.dubliniensis Prevotella Species 11/22/18 11/22/18 11/25/18 20:05 20:05 10:09 Creatine Kinase 289 H 148 H CK-MB (CK-2) 5.72 H Troponin I 0.047 11/25/18 11/25/18 11/25/18 10:09 15:20 15:20 Creatine Kinase 140 H CK-MB (CK-2) 2.80 2.54 Troponin I 0.016 0.016 11/25/18 11/25/18 22:35 22:35 Creatine Kinase 144 H CK-MB (CK-2) 2.47 Troponin I 0.016 Impressions: Chest X-Ray 11/22/18 19:46 IMPRESSION: No acute abnormality is identified. CLINICAL HISTORY: 68 years, Female, chest pain COMPARISON: None. NUMBER OF VIEWS: TECHNIQUE: LIMITATIONS: None. FINDINGS: IMPRESSION: copyright 2011 [employer]- All Rights Reserved Knee X-Ray 11/23/18 00:00 IMPRESSION: No radiographic evidence for acute fracture of the right knee. Assessment and Plan - Diagnosis (1) Hyperosmolar non-ketotic state in patient with type 2 diabetes mellitus Is this a current diagnosis for this admission?: Yes Plan: Now resolved. Blood sugars are still high but improved. Increased her Lantus with positive effect. Had a long discussion with her about dietary choices and her perceived lack of compliance with her diet outside of the hospital. We told her to eat only what we bring her while she is here. (2) Right groin wound Qualifiers: Encounter type: initial encounter Qualified Code(s): S31.109A - Unspecified open wound of abdominal wall, unspecified quadrant without penetration into peritoneal cavity, initial encounter Is this a current diagnosis for this admission?: Yes Plan: Is growing out a Prevotella species but has a much higher growth of Concepcion. I am going to continue Rocephin for now, and will continue Diflucan. (3) Chronic combined systolic and diastolic congestive heart failure Is this a current diagnosis for this admission?: Yes Plan: Currently not exacerbated. We will make sure she is medically optimized. Dr. Terry is going to get her set up with a LifeVest and will follow her as an outpatient. When she gets a LifeVest she can be discharged. (4) Obesity (BMI 30.0-34.9) Is this a current diagnosis for this admission?: Yes Plan: I strongly encouraged lifestyle modification - Time Time Spent with patient: 15-24 minutes
[2018-11-30] MEDS: ATORVASTATIN CALCIUM 80 MG TABLET PO SCH (21:50)
[2018-12-01] MEDS: GABAPENTIN 400 MG CAPSULE PO SCH (06:00)
[2018-12-01] MEDS: PANTOPRAZOLE SODIUM 40 MG TABLET.DR PO SCH (06:14)
[2018-12-01] MEDS: INSULIN REG, HUMAN 100 UNIT/ML 3 ML VIAL (PYX) SUBCUT SCH ×2 (09:00→12:52)
[2018-12-01] MEDS: METOCLOPRAMIDE HCL 10 MG TABLET PO SCH ×2 (09:03→12:52)
[2018-12-01] MEDS: DOCUSATE SODIUM 100 MG CAPSULE PO SCH (09:03)
[2018-12-01] MEDS: POTASSIUM CHLORIDE 10 MEQ CAPSULE.ER PO SCH ×2 (09:03→12:52)
[2018-12-01] MEDS: SACUBITRIL/VALSARTAN 49 MG/51 MG TABLET PO SCH (09:03)
[2018-12-01] MEDS: INSULIN GLARGINE,HUM.REC.ANLOG 1,000 UNIT/10 ML VIAL SUBCUT SCH (09:04)
[2018-12-01] MEDS: METOPROLOL SUCCINATE 25 MG TAB.SR.24H PO SCH (09:04)
[2018-12-01] MEDS: FAMOTIDINE 20 MG TABLET PO SCH ×2 (09:04→12:52)
[2018-12-01] MEDS: FLUCONAZOLE 100 MG TABLET PO SCH (09:04)
[2018-12-01] MEDS: SUCRALFATE 1 GM TABLET PO SCH ×2 (09:04→12:52)
[2018-12-01] MEDS: PAROXETINE HCL 20 MG TABLET PO SCH (09:04)
[2018-12-01 12:43] VITALS: BP 106/70
--- NOTE | 2018-12-01 16:09 | PDOC DISCHARGE SUMMARY ---
General - Admit/Disc Date/PCP Admission Date/Primary Care Provider: 11/22/18 22:06 YAMILEX GARCIA MD Discharge Date: 12/01/18 - Discharge Diagnosis (1) Hyperosmolar non-ketotic state in patient with type 2 diabetes mellitus Is this a current diagnosis for this admission?: Yes Summary: Resolved with insulin and IV fluids and dietary management (2) Right groin wound Is this a current diagnosis for this admission?: Yes Summary: She is grown out Prevotella species, pansensitive enterococcus, and large growth of Concepcion species. She had I&D per surgery. She is going to complete a course of Augmentin and Diflucan at home. (3) Chronic combined systolic and diastolic congestive heart failure Is this a current diagnosis for this admission?: Yes Summary: Not acutely exacerbated during his hospitalization. Medication recommendations per Dr. Terry. She was fitted with a LifeVest and will follow up with him as an outpatient. This was not acutely exacerbated during this hospitalization. (4) Obesity (BMI 30.0-34.9) Is this a current diagnosis for this admission?: Yes Summary: Strongly encouraged dietary modifications. We are getting physical therapy for her at home to get her more mobile so she can be more active. - Additional Information Resuscitation Status: Full Code Discharge Diet: Cardiac, Diabetic Discharge Activity: Balance Activity w/Rest, Supervised Activity Prescriptions: Amox Tr/Potassium Clavulanate [Augmentin 875-125 mg Tablet] 1 tab PO BID #20 tablet Fluconazole [Diflucan 100 mg Tablet] 100 mg PO DAILY #10 tablet Insulin Detemir [Levemir] 25 unit SQ BID #1 vial Metoprolol Succinate [Toprol Xl 25 mg Tab.sr] 25 mg PO DAILY #30 tab.sr.24h Home Medications: Atorvastatin Calcium [Lipitor 40 mg Tablet] 40 mg PO DAILY 11/23/18 Furosemide [Lasix 40 mg Tablet] 40 mg PO DAILY 11/23/18 Gabapentin [Neurontin] 800 mg PO Q8 11/23/18 Omeprazole 40 mg PO Q6AM 11/23/18 Oxycodone HCl/Acetaminophen [Percocet 7.5-325 mg Tablet] 1 each PO Q6HP PRN 11/23/18 Sacubitril/Valsartan [Entresto 49 mg/51 mg Tablet] 1 tab PO BID 11/23/18 Amox Tr/Potassium Clavulanate [Augmentin 875-125 mg Tablet] 1 tab PO BID #20 tablet 12/01/18 Fluconazole [Diflucan 100 mg Tablet] 100 mg PO DAILY #10 tablet 12/01/18 Insulin Aspart [Novolog Flexpen] See Protocol SQ ASDIR #0 12/01/18 Insulin Detemir [Levemir] 25 unit SQ BID #1 vial 12/01/18 Metoprolol Succinate [Toprol Xl 25 mg Tab.sr] 25 mg PO DAILY #30 tab.sr.24h History of Present Illness History of Present Illness: EDUARDA JARRELL is a 68 year old female who presented to the emergency room with a 2-day history of malaise. She admits generalized body aches and pains worsening over the last 2 days accompanied by 2 separate episodes of vomiting, poor oral fluid intake and a decreased appetite. At the present time she states the body aches and pains are severe. The patient is a poor historian but denies prior similar episodes. She further denies other associated or accompanying signs and symptoms. She has not identified any aggravating or ameliorating factors for her malaise. In the emergency room she was found to have a blood sugar of 1160 with a potassium of 3.5 and bicarbonate level of 17. She was started on intravenous insulin infusion and admitted to the [facility] for further evaluation and treatment. Hospital Course Hospital Course: She got some insulin and some IV fluids and her blood sugars became more acceptable. We were having trouble controlling her blood sugars because she was eating fast food and her family was bringing to her. Once we were able to cut that out, we got her blood sugar under fairly good control. She was taking bolus doses of short acting insulin at home and her diabetes is not controlled at all. We got her on some Lantus and a sliding scale and micromanaged her diet and her blood sugar control is better. We will going to set her up with some outpatient diabetes education. Her family is going to need to participate in this. She has chronic systolic heart failure with an EF of around 25% that fortunately was not exacerbated this time. She was seen in consultation by Dr. Terry who made some medication recommendations and set her up with a LifeVest is going to follow her up as an outpatient. She is going to get home physical therapy and Occupational Therapy as well as outpatient disease education. Her labs and examination were reassuring and she was discharged in good condition. Physical Exam Vital Signs: Temp Pulse Resp BP Pulse Ox 98.1 F 71 18 135/66 H 94 12/01/18 12:10 12/01/18 12:10 12/01/18 12:10 12/01/18 12:10 12/01/18 12:10 Intake & Output 11/30/18 12/01/18 12/02/18 06:59 06:59 06:59 Intake Total 1580 860 400 Output Total 4400 4400 300 Balance -2820 -3540 100 Weight 94.8 kg 94.9 kg General appearance: PRESENT: no acute distress, cooperative, disheveled, obese Respiratory exam: PRESENT: clear to auscultation rodrigue, symmetrical, unlabored. ABSENT: accessory muscle use, chest wall tenderness, crackles, prolonged expiratory phas, rhonchi, tachypnea, wheezes Cardiovascular exam: PRESENT: RRR, +S1, +S2 Pulses: PRESENT: normal carotid pulses Vascular exam: PRESENT: normal capillary refill GI/Abdominal exam: PRESENT: normal bowel sounds, soft. ABSENT: distended, guarding, rigid, tenderness Extremities exam: PRESENT: other - Right groin I&D site is covered with a clean bandage. ABSENT: clubbing, pedal edema Musculoskeletal exam: PRESENT: normal inspection. ABSENT: deformity Neurological exam: PRESENT: alert, awake, oriented to person, oriented to place, oriented to situation Psychiatric exam: PRESENT: appropriate affect, normal mood Skin exam: PRESENT: dry, warm Results Laboratory Results: 11/26/18 05:13 11/29/18 05:02 11/22/18 11/22/18 11/25/18 20:05 20:05 10:09 Creatine Kinase 289 H 148 H CK-MB (CK-2) 5.72 H Troponin I 0.047 11/25/18 11/25/18 11/25/18 10:09 15:20 15:20 Creatine Kinase 140 H CK-MB (CK-2) 2.80 2.54 Troponin I 0.016 0.016 11/25/18 11/25/18 22:35 22:35 Creatine Kinase 144 H CK-MB (CK-2) 2.47 Troponin I 0.016 Impressions: Chest X-Ray 11/22/18 19:46 IMPRESSION: No acute abnormality is identified. CLINICAL HISTORY: 68 years, Female, chest pain COMPARISON: None. NUMBER OF VIEWS: TECHNIQUE: LIMITATIONS: None. FINDINGS: IMPRESSION: copyright 2011 [employer]- All Rights Reserved Knee X-Ray 11/23/18 00:00 IMPRESSION: No radiographic evidence for acute fracture of the right knee. Qualifiers - * PATIENT BEING DISCHARGED WITH ANY OF THE FOLLOWING DIAGNOSIS: No Acute Heart Failure - Is this a Heart Failure Patient?: Yes Documentation of LVEF assessment?: Yes LVEF < 40%?: Yes-if yes answer questions a through e a) Discharged on ACEI?: N/A Discharged on ARNI b) Discharges on ARB?: N/A-Discharged on ARNI c) Discharged on ARNI?: Yes d) Discharged on evidence-based Beta vianey(carvedilol, sustained release metoprolol succinate, or bisoprolol)?: Yes e) For LVEF <35%, discharged on Aldosterone antagonist?: No-document contraincat ions Reason(s) not discharged on Aldosterone antagonist for LVEF < 35%: Other - Was not recommended by cardiology 3. Anticoagulant therapy for permanect/persistent/paraoxysmal Afib or Aflutter: N/A Follow-up Appointment scheduled within 7 days?: Yes Plan Time Spent: Greater than 30 Minutes
== END 2018-12-01 13:00 | disposition home health service (06) | DRG 623 ==
LOC: ER 17:33 → EH 22:06 → 3W 11-23 01:22
PROVIDERS: ADMIT Emergency Medicine; ATTEND Emergency Medicine
PROC: 0JBC0ZZ Excision of Pelvic Region Subcutaneous Tissue and Fascia, Open Approach (ICD-10-PCS; principal; 2018-11-26 12:45)
DX: E11.00 Type 2 diabetes mellitus with hyperosmolarity without nonketotic hyperglycemic-hyperosmolar coma (NKHHC) (principal); I50.42 Chronic combined systolic (congestive) and diastolic (congestive) heart failure; L02.214 Cutaneous abscess of groin; N39.0 Urinary tract infection, site not specified; I42.9 Cardiomyopathy, unspecified; E87.6 Hypokalemia; B95.1 Streptococcus, group B, as the cause of diseases classified elsewhere; Z79.4 Long term (current) use of insulin; I11.0 Hypertensive heart disease with heart failure; G89.4 Chronic pain syndrome; E78.5 Hyperlipidemia, unspecified; E66.9 Obesity, unspecified; F32.9 Major depressive disorder, single episode, unspecified; Z90.49 Acquired absence of other specified parts of digestive tract; Z83.3 Family history of diabetes mellitus; Z82.49 Family history of ischemic heart disease and other diseases of the circulatory system
CPT/HCPCS: 00400; 36415; 71046; 80048; 80053; 80061; 81001; 82550; 82553; 82803; 82962; 83036; 83690; 83735; 83930; 83935; 84439; 84443; 84481; 84484; 85025; 85027; 87070; 87075; 87077; 87086; 87088; 87186; 87205; 93005; 93010; 99285; A6266; J0696; J1644; J1815; J1956; J2250; J2300; J2704; J2765; J3010; J3480; J3490; J7030; S0028

== ENCOUNTER 2018-12-08 11:04 | Inpatient (IN) | payer MEDICARE, MEDICAID ==
[2018-12-08 11:50] LABS: ABSOLUTE EOSINOPHILS # (AUTO) 0.1 10^3/uL (0.0-0.6); TOTAL CELLS COUNTED % (AUTO) 100 %
[2018-12-08 11:50] LABS: VENOUS BLOOD BASE EXCESS 0.7 mmol/L; VENOUS BLOOD HCO3 27.2 mmol/L (20-32); VENOUS BLOOD PCO2 51.4 mmHg (35-63); VENOUS BLOOD PH 7.34 (7.30-7.42)
[2018-12-08 11:54] LABS: ABSOLUTE LYMPHOCYTES (AUTO) 2.3 10^3/uL (0.5-4.7); ABSOLUTE MONOCYTES (AUTO) 0.5 10^3/uL (0.1-1.4); ABSOLUTE NEUT (AUTO) 3.1 10^3/uL (1.7-8.2); BASOPHILS % (AUTO) 0.8 % (0-2); EOSINOPHILS % (AUTO) 2.4 % (0-6); HEMATOCRIT 42.5 % (36.0-47.0); HEMOGLOBIN 13.2 g/dL (12.0-15.5); LYMPHOCYTES % (AUTO) 37.4 % (13-45); MEAN CORPUSCULAR HEMOGLOBIN 25.7 pg (27.0-33.4); MONOCYTES % (AUTO) 8.2 % (3-13); PLATELET COUNT 228 10^3/uL (150-450); RED BLOOD COUNT 5.13 10^6/uL (3.72-5.28); RED CELL DISTRIBUTION WIDTH 19.3 % (11.5-14.0); SEGMENTED NEUTROPHILS % (AUTO) 51.2 % (42-78); WHITE BLOOD COUNT 6.1 10^3/uL (4.0-10.5)
[2018-12-08 11:57] LABS: MEAN CORPUSCULAR VOLUME 83 fl (80-97)
--- NOTE | 2018-12-08 11:59 | ER Document Report ---
ED Blood Sugar Problem - General Chief Complaint: High Blood Sugar Stated Complaint: DIABETIC Time Seen by Provider: 12/08/18 11:18 Primary Care Provider: YAMILEX GARCIA MD [COMMUNITY BASED STAFF] - Follow up as needed Notes: 68-year-old female presents to the emergency department by EMS for diarrhea x2 days and hyperglycemia. Patient said that "my sugars was doing great yesterday and then they just went connie high all of a sudden". Patient states she checked this morning and her blood sugar was 585, she states she gave herself 25 units of insulin and then followed up with another 10 units. This is in conflict from what nursing reported to me that she received 50 units this morning. Patient denies any fevers or chills, denies any nausea or vomiting, denies any acute shortness of breath or chest pain, denies any belly pain, denies any polyuria. TRAVEL OUTSIDE OF THE [place] IN LAST 30 DAYS: No - Related Data Allergies/Adverse Reactions: No Known Allergies Allergy (Verified 11/22/18 17:34) Past Medical History - Social History Smoking Status: Unknown if Ever Smoked Family History: CAD, DM, Hypertension. denies: Malignancy - Past Medical History Cardiac Medical History: Reports: Hx Congestive Heart Failure, Hx Hypercholesterolemia, Hx Hypertension Pulmonary Medical History: Reports: Hx Asthma, Hx COPD Denies: Hx Tuberculosis Neurological Medical History: Denies: Hx Seizures Endocrine Medical History: Reports: Hx Diabetes Mellitus Type 2. Denies: Hx Diabetes Mellitus Type 1, Hx Hyperthyroidism, Hx Hypothyroidism Renal/ Medical History: Denies: Hx Peritoneal Dialysis GI Medical History: Denies: Hx Cirrhosis, Hx Crohn's Disease, Hx Hepatitis, Hx Ulcerative Colitis Musculoskeletal Medical History: Denies Hx Arthritis, Denies Hx Gout Skin Medical History: Denies Hx Eczema, Denies Hx Psoriasis Psychiatric Medical History: Reports: Hx Depression Infectious Medical History: Denies: Hx Hepatitis Past Surgical History: Reports: Hx Appendectomy, Hx Section - x2, Hx Orthopedic Surgery - toe - Immunizations Immunizations up to date: Yes Hx Diphtheria, Pertussis, Tetanus Vaccination: Yes - 2011 Hx Pneumococcal Vaccination: 12/17/10 Review of Systems - Review of Systems Constitutional: See HPI EENT: No symptoms reported Cardiovascular: See HPI Respiratory: See HPI Gastrointestinal: See HPI Genitourinary: See HPI Female Genitourinary: No symptoms reported Musculoskeletal: No symptoms reported Skin: No symptoms reported Hematologic/Lymphatic: No symptoms reported Neurological/Psychological: No symptoms reported Physical Exam - Vital signs Vitals: Resp 22 H 12/08/18 11:17 Interpretation: Normal - General General appearance: Appears well, Alert - HEENT Head: Normocephalic, Atraumatic Eyes: Normal Pupils: PERRL - Respiratory Respiratory status: No respiratory distress Chest status: Nontender Breath sounds: Normal Chest palpation: Normal - Cardiovascular Rhythm: Regular Heart sounds: Normal auscultation Murmur: No - Abdominal Inspection: Normal Distension: No distension Bowel sounds: Normal Tenderness: Nontender Organomegaly: No organomegaly - Back Back: Normal, Nontender - Extremities General upper extremity: Normal inspection, Nontender, Normal color, Normal ROM, Normal temperature General lower extremity: Normal inspection, Nontender, Normal color, Normal ROM, Normal temperature, Normal weight bearing. No: Son's sign - Neurological Neuro grossly intact: Yes Cognition: Normal Orientation: AAOx4 Jr Coma Scale Eye Opening: Spontaneous Willard Coma Scale Verbal: Oriented Willard Coma Scale Motor: Obeys Commands Jr Coma Scale Total: 15 Speech: Normal Motor strength normal: LUE, RUE, LLE, RLE Sensory: Normal - Psychological Associated symptoms: Normal affect, Normal mood - Skin Skin Temperature: Warm Skin Moisture: Dry Skin Color: Normal Course - Re-evaluation Re-evalutation: 12/08/18 13:39 Patient is alert and oriented. Patient is a poor historian. Patient states that she gave herself 25 units this morning 10 after that. This is in conflict from what daughter told EMS she gave her 50 units and she was still highly elevated. Lab work shows no evidence of DKA, serum glucose 661 consistent with HHS. Potassium 4.2. Clinically patient appears dehydrated. I spoke with DEEPALI Kinney, who is admitting patient to the medical floor for full admission. - Vital Signs Vital signs: Temp Pulse Resp BP Pulse Ox 24 H 133/77 H 96 12/08/18 12:01 12/08/18 12:01 12/08/18 12:01 - Laboratory Result Diagrams: 12/08/18 11:22 12/08/18 11:22 Laboratory results interpreted by me: 12/08/18 12/08/18 12/08/18 11:22 11:22 12:32 MCH 25.7 L MCHC 31.0 L RDW 19.3 H Sodium 133.9 L BUN 34 H Est GFR ( Amer) 58 L Est GFR (MDRD) Non-Af 48 L Glucose 661 H* Total Protein 5.4 L Albumin 2.6 L Urine Protein 100 H Urine Glucose (UA) >=500 H Urine Ketones TRACE H Discharge - Discharge Clinical Impression: Hyperosmolar non-ketotic state in patient with type 2 diabetes mellitus Condition: Stable Disposition: ADMITTED INPATIENT Admitting Provider: Blair (Hospitalist) Unit Admitted: Medical Floor Referrals: YAMILEX GARCIA MD [COMMUNITY BASED STAFF] - Follow up as needed
[2018-12-08 12:06] LABS: ALBUMIN 2.6 g/dL (3.5-5.0); ALKALINE PHOSPHATASE 113 U/L (38-126); ANION GAP 8 (5-19); ASPARTATE AMINO TRANSFERASE 19 U/L (14-36); BILIRUBIN,DIRECT 0.2 mg/dL (0.0-0.4); BILIRUBIN,TOTAL 0.4 mg/dL (0.2-1.3); BLOOD UREA NITROGEN 34 mg/dL (7-20); CALCIUM 8.5 mg/dL (8.4-10.2); CARBON DIOXIDE 25 mmol/L (22-30); CHLORIDE 101 mmol/L (98-107); POTASSIUM 4.2 mmol/L (3.6-5.0); TOTAL PROTEIN 5.4 g/dL (6.3-8.2)
[2018-12-08 12:24] LABS: GLUCOSE 661 mg/dL (75-110)
[2018-12-08 12:57] LABS: APPEARANCE,URINE CLEAR; BILIRUBIN,URINE NEGATIVE (NEGATIVE); COLOR,URINE STRAW; GLUCOSE, URINE >=500 mg/dL (NEGATIVE); KETONES,URINE TRACE mg/dL (NEGATIVE); LEUKOCYTE ESTERASE,URINE NEGATIVE (NEGATIVE); NITRITE,URINE NEGATIVE (NEGATIVE); PROTEIN,URINE 100 mg/dL (NEGATIVE); URINE SPECIFIC GRAVITY 1.024; UROBILINOGEN,URINE NEGATIVE mg/dL (<2.0)
[2018-12-08] MEDS ORDERED: ONDANSETRON HCL INJ/PF 4 MG/2 ML SDV IV PRN (14:28)
[2018-12-08] MEDS ORDERED: DEXTROSE 40% GEL 15 GM TUBE PO PRN ×4 (14:28→14:51)
[2018-12-08] MEDS ORDERED: GLUCAGON,HUMAN RECOMB 1 MG INJ SUBCUT PRN (14:28)
[2018-12-08] MEDS ORDERED: DEXTROSE 50%-WATER 25 GM/50 ML DISP.SYRIN IV PRN ×4 (14:28→14:51)
[2018-12-08] MEDS ORDERED: KETOROLAC TROMETHAMINE INJ/PF 30 MG/1 ML SDV IV ONE (14:49)
[2018-12-08] MEDS ORDERED: GLUCAGON,HUMAN RECOMB 1 MG INJ IM PRN (14:51)
[2018-12-08] MEDS ORDERED: NORMAL SALINE 100 ML with INSULIN REGULAR, HUMAN 100 UNIT IV PRN ×2 (14:51)
--- NOTE | 2018-12-08 15:58 | PDOC H&P ---
History of Present Illness Admission Date/PCP: 12/08/18 13:55 TRAVIS SUBRAMANIAN MD History of Present Illness: EDUARDA JARRELL is a 68 year old female who was admitted for hyperglycemia. She was brought into the emergency room by EMS ED was found to have a sugar of 661 she was just in the hospital and discharged 12/01/2018 for the same problem at that time her blood sugars were in the 1200s On this occasion reportedly has had diarrhea for 2 days. It is unknown whether the patient took 35 units of insulin or 50 units of insulin after finding out that her sugar was high. Patient presents with lethargy and hyperglycemia Past Medical History Cardiac Medical History: Reports: Congestive Heart Failure, Hyperlipidema, Hypertension Pulmonary Medical History: Reports: Asthma, Chronic Obstructive Pulmonary Disease (COPD) Denies: Tuberculosis Neurological Medical History: Denies: Seizures Endocrine Medical History: Reports: Diabetes Mellitus Type 2 Denies: Diabetes Mellitus Type 1, Hyperthyroidism, Hypothyroidism GI Medical History: Denies: Cirrhosis, Crohn's Disease, Hepatitis, Ulcerative Colitis Musculoskeltal Medical History: Denies: Arthritis, Gout Skin Medical History: Denies: Eczema, Psoriasis Psychiatric Medical History: Reports: Depression Hematology: Denies: Anemia, Sickle Cell Disease, Bleeding Tendencies Past Surgical History Past Surgical History: Reports: Appendectomy, Section - x2, Orthopedic Surgery - toe Denies: Amputation Social History Smoking Status: Unknown if Ever Smoked Frequency of Alcohol Use: None Hx Recreational Drug Use: No Drugs: None Hx Prescription Drug Abuse: No - Advance Directive Resuscitation Status: Full Code Family History Family History: CAD, DM, Hypertension. denies: Malignancy Parental Family History Reviewed: No Children Family History Reviewed: No Sibling(s) Family History Reviewed.: No Medication/Allergy Home Medications: Atorvastatin Calcium [Lipitor 40 mg Tablet] 40 mg PO DAILY 11/23/18 Furosemide [Lasix 40 mg Tablet] 40 mg PO DAILY 11/23/18 Gabapentin [Neurontin] 800 mg PO Q8 11/23/18 Omeprazole 40 mg PO Q6AM 11/23/18 Sacubitril/Valsartan [Entresto 49 mg/51 mg Tablet] 1 tab PO BID 11/23/18 Amox Tr/Potassium Clavulanate [Augmentin 875-125 mg Tablet] 1 tab PO BID #20 tablet MDD FILLED 12/01 FOR 10 DAY SUPPLY 12/01/18 Fluconazole [Diflucan 100 mg Tablet] 100 mg PO DAILY #10 tablet MDD FILLED FOR 10 DAY SUPPLY 12/01/18 Insulin Aspart [Novolog Flexpen] See Protocol SQ ASDIR #0 12/01/18 Insulin Detemir [Levemir] 25 unit SQ BID #1 vial 12/01/18 Metoprolol Succinate [Toprol Xl 25 mg Tab.sr] 25 mg PO DAILY #30 tab.sr.24h 12/01/18 Oxycodone HCl/Acetaminophen [Percocet 10-325 Mg Tablet] 1 each PO Q6HP PRN 12/08/18 Allergies/Adverse Reactions: No Known Allergies Allergy (Verified 11/22/18 17:34) Review of Systems ROS unobtainable: Due to mental status Constitutional: ABSENT: chills, fever(s), headache(s), weight gain, weight loss Cardiovascular: ABSENT: chest pain, dyspnea on exertion, edema, orthropnea, palpitations Respiratory: ABSENT: cough, hemoptysis Gastrointestinal: ABSENT: abdominal pain, constipation, diarrhea, hematemesis, hematochezia, nausea, vomiting Physical Exam Vital Signs: Temp Pulse Resp BP Pulse Ox 97.8 F 24 H 133/77 H 96 12/08/18 15:27 12/08/18 12:01 12/08/18 12:01 12/08/18 12:01 General appearance: PRESENT: mild distress - Patient is lethargic but arouses easily to verbal stimuli, patient follows commands. Respiratory exam: PRESENT: clear to auscultation rodrigue. ABSENT: rales, rhonchi, wheezes Cardiovascular exam: PRESENT: RRR. ABSENT: diastolic murmur, rubs, systolic murmur Neurological exam: PRESENT: altered, other - No focal deficits patient is lethargic however, patient is asking for pain medication. Psychiatric exam: PRESENT: other Results Laboratory Results: 12/08/18 11:22 12/08/18 11:22 12/08/18 12/08/18 12/08/18 11:22 11:22 11:40 WBC 6.1 RBC 5.13 Hgb 13.2 Hct 42.5 MCV 83 D MCH 25.7 L MCHC 31.0 L RDW 19.3 H Plt Count 228 Seg Neutrophils % 51.2 VBG pH 7.34 VBG pCO2 51.4 VBG HCO3 27.2 VBG Base Excess 0.7 Sodium 133.9 L Potassium 4.2 Chloride 101 Carbon Dioxide 25 Anion Gap 8 BUN 34 H Creatinine 1.14 Est GFR ( Amer) 58 L Glucose 661 H* Calcium 8.5 Total Bilirubin 0.4 AST 19 Alkaline Phosphatase 113 Total Protein 5.4 L Albumin 2.6 L Lipase 45.8 Urine Color Urine Appearance Urine pH Ur Specific [place] Urine Protein Urine Glucose (UA) Urine Ketones Urine Blood Urine Nitrite Ur Leukocyte Esterase Urine WBC (Auto) Urine RBC (Auto) 12/08/18 12:32 WBC RBC Hgb Hct MCV MCH MCHC RDW Plt Count Seg Neutrophils % VBG pH VBG pCO2 VBG HCO3 VBG Base Excess Sodium Potassium Chloride Carbon Dioxide Anion Gap BUN Creatinine Est GFR ( Amer) Glucose Calcium Total Bilirubin AST Alkaline Phosphatase Total Protein Albumin Lipase Urine Color STRAW Urine Appearance CLEAR Urine pH 7.0 Ur Specific [place] 1.024 Urine Protein 100 H Urine Glucose (UA) >=500 H Urine Ketones TRACE H Urine Blood NEGATIVE Urine Nitrite NEGATIVE Ur Leukocyte Esterase NEGATIVE Urine WBC (Auto) 0 Urine RBC (Auto) 0 Assessment and Plan - Diagnosis (1) Altered mental status Qualifiers: Altered mental status type: unspecified Qualified Code(s): R41.82 - Altered mental status, unspecified Is this a current diagnosis for this admission?: Yes Plan: She is lethargic however arouses to verbal stimuli and follows commands patient's blood sugar was about 600 patient received an unknown amount of insulin prior to this she has had these events before and in fact she was just discharged home from the hospital about 10 days ago with similar complaint. At that time her blood sugars were 1200 (2) Hyperglycemia Is this a current diagnosis for this admission?: Yes Plan: The emergency room sugar was 661, gathering worker at home it was 585 anion gap is 8. Patient will be given IV fluids and placed on insulin drip follow regular Accu- Cheks and serial chemistry panels. (3) Chronic combined systolic and diastolic congestive heart failure Is this a current diagnosis for this admission?: Yes Plan: Watch patient with fluids concerning chest of heart failure the patient does hav e a history of this. - Time Time Spent with patient: 35 or more minutes
--- NOTE | 2018-12-08 16:03 | RADIOLOGY REPORT (SQ) ---
EXAM DESCRIPTION: CHEST SINGLE VIEW COMPLETED DATE/TIME: 12/08/2018 3:39 pm REASON FOR STUDY: altered mental status COMPARISON: CTA chest 04/05/2018 Chest films 08/27/2018, 11/22/2018 EXAM PARAMETERS: NUMBER OF VIEWS: One view. TECHNIQUE: Single frontal radiographic view of the chest acquired. RADIATION DOSE: NA LIMITATIONS: Artifact from external defibrillator FINDINGS: LUNGS AND PLEURA: No opacities, masses or pneumothorax. No pleural effusion. MEDIASTINUM AND HILAR STRUCTURES: No masses. Contour normal. HEART AND VASCULAR STRUCTURES: Stable moderate to marked cardiomegaly BONES: No acute findings. HARDWARE: None in the chest. OTHER: No other significant finding. IMPRESSION: Stable cardiomegaly No acute infiltrates Artifact from external defibrillator TECHNICAL DOCUMENTATION: JOB ID: [id number] [employer]- All Rights Reserved Reading location - IP/workstation name: [email or web address]
[2018-12-08] MEDS: 1/2 NORMAL SALINE 1,000 ML IV PRN ×2 (16:39→23:10)
--- NOTE | 2018-12-08 17:45 | EKG REPORT ---
SEVERITY:- ABNORMAL ECG - SINUS RHYTHM LEFT BUNDLE BRANCH BLOCK : Confirmed by: Todd Roth MD 08-Dec-2018 17:45:03
[2018-12-08 18:39] LABS: URINE AMPHETAMINES SCREEN NEGATIVE; URINE BARBITURATES SCREEN NEGATIVE; URINE COCAINE SCREEN NEGATIVE; URINE MARIJUANA (THC) SCREEN NEGATIVE; URINE METHADONE SCREEN NEGATIVE; URINE PHENCYCLIDINE SCREEN NEGATIVE
[2018-12-08 19:58] LABS: URINE BENZODIAZEPINES SCREEN UNCONFIRMED POSITIVE
[2018-12-08] MEDS: FAMOTIDINE 20 MG TABLET PO SCH (21:06)
[2018-12-08] MEDS: HEPARIN SOD (PORCINE) 5,000 UNIT/ML 1 ML VIAL SUBCUT SCH (21:06)
[2018-12-09 01:20] LABS: BLOOD UREA NITROGEN 29 mg/dL (7-20); CALCIUM 8.8 mg/dL (8.4-10.2); CHLORIDE 109 mmol/L (98-107); GLUCOSE 159 mg/dL (75-110); POTASSIUM 3.3 mmol/L (3.6-5.0)
[2018-12-09 01:26] LABS: ANION GAP 5 (5-19); CARBON DIOXIDE 25 mmol/L (22-30)
[2018-12-09 04:56] LABS: ABSOLUTE EOSINOPHILS # (AUTO) 0.2 10^3/uL (0.0-0.6); ABSOLUTE LYMPHOCYTES (AUTO) 2.2 10^3/uL (0.5-4.7); ABSOLUTE MONOCYTES (AUTO) 0.5 10^3/uL (0.1-1.4); ABSOLUTE NEUT (AUTO) 2.5 10^3/uL (1.7-8.2); BASOPHILS % (AUTO) 0.5 % (0-2); EOSINOPHILS % (AUTO) 3.6 % (0-6); HEMATOCRIT 40.1 % (36.0-47.0); HEMOGLOBIN 12.5 g/dL (12.0-15.5); LYMPHOCYTES % (AUTO) 41.3 % (13-45); MEAN CORPUSCULAR HEMOGLOBIN 25.2 pg (27.0-33.4); MEAN CORPUSCULAR HGB CONC 31.2 g/dL (32.0-36.0); MONOCYTES % (AUTO) 9.1 % (3-13); PLATELET COUNT 227 10^3/uL (150-450); RED BLOOD COUNT 4.97 10^6/uL (3.72-5.28); RED CELL DISTRIBUTION WIDTH 19.7 % (11.5-14.0); SEGMENTED NEUTROPHILS % (AUTO) 45.5 % (42-78); TOTAL CELLS COUNTED % (AUTO) 100 %; WHITE BLOOD COUNT 5.4 10^3/uL (4.0-10.5)
[2018-12-09 04:59] LABS: MEAN CORPUSCULAR VOLUME 81 fl (80-97)
[2018-12-09 05:05] LABS: ANION GAP 6 (5-19); BLOOD UREA NITROGEN 25 mg/dL (7-20); CALCIUM 8.8 mg/dL (8.4-10.2); CARBON DIOXIDE 24 mmol/L (22-30); CHLORIDE 107 mmol/L (98-107); GLUCOSE 329 mg/dL (75-110); POTASSIUM 3.7 mmol/L (3.6-5.0)
[2018-12-09] MEDS: HEPARIN SOD (PORCINE) 5,000 UNIT/ML 1 ML VIAL SUBCUT SCH ×3 (05:19→21:54)
[2018-12-09] MEDS: 1/2 NORMAL SALINE 1,000 ML IV PRN (05:55)
[2018-12-09] MEDS ORDERED: INSULIN LISPRO 100 UNIT/ML 3 ML VIAL ONE (06:45)
[2018-12-09] MEDS ORDERED: INSULIN LISPRO 100 UNIT/ML 3 ML VIAL SUBCUT ONE (06:45)
[2018-12-09] MEDS: INSULIN LISPRO 100 UNIT/ML 3 ML VIAL SUBCUT SCH ×4 (07:47→21:53)
[2018-12-09] MEDS ORDERED: INSULIN LISPRO 100 UNIT/ML 3 ML VIAL SUBCUT SCH (08:00)
[2018-12-09] MEDS: METFORMIN HCL 500 MG TABLET PO SCH ×2 (09:48→17:35)
[2018-12-09] MEDS: FAMOTIDINE 20 MG TABLET PO SCH ×2 (09:48→21:52)
[2018-12-09] MEDS: DOCUSATE SODIUM 100 MG CAPSULE PO SCH (09:52)
[2018-12-09] MEDS: SITAGLIPTIN PHOSPHATE 50 MG TABLET PO SCH ×2 (09:54→17:35)
[2018-12-09] MEDS ORDERED: DOCUSATE SODIUM 100 MG/10 ML UDC PO SCH (10:00)
[2018-12-09] MEDS ORDERED: KETOROLAC TROMETHAMINE INJ/PF 30 MG/1 ML SDV IV PRN (10:51)
--- NOTE | 2018-12-09 12:49 | PDOC PROGRESS REPORT ---
Subjective Progress Note for:: 12/09/18 Subjective:: Patient was admitted yesterday through the emergency room for hyperglycemia with this serum glucose of 661 patient had just been discharged from the hospital within the last week same complaint however that time her glucose was over 1200 and she was in DKA. No indication of DKA on this admission. Reason For Visit: HYPERGLYCEMIA,ABDOMINAL WOUND,SYSTOLIC AND Physical Exam Vital Signs: Temp Pulse Resp BP Pulse Ox 98.2 F 77 18 146/73 H 95 12/09/18 07:14 12/09/18 07:14 12/09/18 07:14 12/09/18 07:14 12/09/18 07:14 Intake & Output 12/08/18 12/09/18 12/10/18 06:59 06:59 06:59 Intake Total 3222 Balance 3222 Weight 93.9 kg General appearance: PRESENT: no acute distress, other - This morning patient is sitting up in bed talking states she is hungry. Patient was then seen eating her breakfast Respiratory exam: PRESENT: clear to auscultation rodrigue. ABSENT: rales, rhonchi, wheezes Cardiovascular exam: PRESENT: RRR. ABSENT: diastolic murmur, rubs, systolic murmur Neurological exam: PRESENT: alert, awake, oriented to person, oriented to place, oriented to time, oriented to situation, CN II-XII grossly intact, other - Awake alert talking in no distress, neurologically intact. ABSENT: motor sensory deficit Psychiatric exam: PRESENT: appropriate affect, normal mood. ABSENT: homicidal ideation, suicidal ideation Results Laboratory Results: 12/09/18 04:29 12/09/18 04:29 12/08/18 12/08/18 12/08/18 12:32 15:20 21:10 WBC RBC Hgb Hct MCV MCH MCHC RDW Plt Count Seg Neutrophils % Sodium Cancelled Potassium Cancelled Chloride Cancelled Carbon Dioxide Cancelled Anion Gap Cancelled BUN Cancelled Creatinine Cancelled Est GFR ( Amer) Cancelled Est GFR (Non-Af Amer) Cancelled Glucose Cancelled Calcium Cancelled Magnesium Ammonia < 8.7 L Urine Color STRAW Urine Appearance CLEAR Urine pH 7.0 Ur Specific [place] 1.024 Urine Protein 100 H Urine Glucose (UA) >=500 H Urine Ketones TRACE H Urine Blood NEGATIVE Urine Nitrite NEGATIVE Ur Leukocyte Esterase NEGATIVE Urine WBC (Auto) 0 Urine RBC (Auto) 0 12/08/18 12/09/18 12/09/18 23:59 00:51 04:29 WBC 5.4 RBC 4.97 Hgb 12.5 Hct 40.1 MCV 81 MCH 25.2 L MCHC 31.2 L RDW 19.7 H Plt Count 227 Seg Neutrophils % 45.5 Sodium Cancelled 139.0 Potassium Cancelled 3.3 L Chloride Cancelled 109 H Carbon Dioxide Cancelled 25 Anion Gap Cancelled 5 BUN Cancelled 29 H Creatinine Cancelled 0.99 Est GFR ( Amer) Cancelled > 60 Est GFR (Non-Af Amer) Cancelled Glucose Cancelled 159 H Calcium Cancelled 8.8 Magnesium Ammonia Urine Color Urine Appearance Urine pH Ur Specific [place] Urine Protein Urine Glucose (UA) Urine Ketones Urine Blood Urine Nitrite Ur Leukocyte Esterase Urine WBC (Auto) Urine RBC (Auto) 12/09/18 12/09/18 04:29 04:29 WBC RBC Hgb Hct MCV MCH MCHC RDW Plt Count Seg Neutrophils % Sodium 136.6 L Potassium 3.7 Chloride 107 Carbon Dioxide 24 Anion Gap 6 BUN 25 H Creatinine 0.90 Est GFR ( Amer) > 60 Est GFR (Non-Af Amer) Glucose 329 H Calcium 8.8 Magnesium 1.8 Ammonia Urine Color Urine Appearance Urine pH Ur Specific [place] Urine Protein Urine Glucose (UA) Urine Ketones Urine Blood Urine Nitrite Ur Leukocyte Esterase Urine WBC (Auto) Urine RBC (Auto) Impressions: Chest X-Ray 12/08/18 14:39 IMPRESSION: Stable cardiomegaly No acute infiltrates Artifact from external defibrillator Assessment and Plan - Diagnosis (1) Altered mental status Qualifiers: Altered mental status type: unspecified Qualified Code(s): R41.82 - Altered mental status, unspecified Is this a current diagnosis for this admission?: Yes Plan: She is lethargic however arouses to verbal stimuli and follows commands patient's blood sugar was about 600 patient received an unknown amount of insulin prior to this she has had these events before and in fact she was just discharged home from the hospital about 10 days ago with similar complaint. At that time her blood sugars were 1200 12/09/2018 patient is neurologically intact this morning carrying on a normal conversation patient remembers being confused yesterday. Patient is asking for pain medicine she states she takes Percocet at home. I have fused to give the patient narcotics while she is here and will still treat with Toradol and/or Tylenol (2) Hyperglycemia Is this a current diagnosis for this admission?: Yes Plan: The emergency room sugar was 661, clinical liaison at home it was 585 anion gap is 8. Patient will be given IV fluids and placed on insulin drip follow regular Accu- Cheks and serial chemistry panels. 12/09/2018 serum glucose this morning is 329 last night it was 159 most recent fingerstick was 247 so she is improving Patient is currently taking metformin thousand milligrams twice daily, Januvia 50 mg twice daily and also while here in the hospital on a sliding scale. Insulin drip discontinued last night Soon is patient's glucose levels are stabilized she will be discharged. A1c on admission was 14 (3) Chronic combined systolic and diastolic congestive heart failure Is this a current diagnosis for this admission?: Yes Plan: Watch patient with fluids concerning chest of heart failure the patient does have a history of this. 12/09/2018 chest x-ray on admission was negative (4) Chronic pain Is this a current diagnosis for this admission?: Yes Plan: 12/09/2018 patient states she takes Percocet at home. Due to her diagnosis of altered mental status on admission she should not have narcotics while here, if at all possible (5) Abscess of right groin Is this a current diagnosis for this admission?: Yes Plan: Patient was on Augmentin prior to coming in. While in the hospital patient will be given Zosyn and then discharged back on p.o. antibiotics as needed - Time Time Spent with patient: 35 or more minutes
[2018-12-09] MEDS: PIPERACILLIN SODIUM/TAZOBACTAM 3.375 GM in NORMAL SALINE 100 ML IV SCH ×2 (15:39→21:54)
[2018-12-09] MEDS ORDERED: POTASSI CL 20 MEQ/NS 1L 1000 ML IV PRN (19:22)
--- NOTE | 2018-12-09 22:10 | PDOC PROGRESS REPORT ---
Subjective Progress Note for:: 12/09/18 Subjective:: Patient was transferred to my service yesterday she is new to my practice she has hyperosmolar nonketotic diabetes Reason For Visit: HYPERGLYCEMIA,ABDOMINAL WOUND,SYSTOLIC AND Physical Exam Vital Signs: Temp Pulse Resp BP Pulse Ox 98.1 F 83 17 139/74 H 100 12/09/18 15:56 12/09/18 15:56 12/09/18 15:56 12/09/18 15:56 12/09/18 15:56 Intake & Output 12/08/18 12/09/18 12/10/18 06:59 06:59 06:59 Intake Total 3222 2196 Balance 3222 2196 Weight 93.9 kg General appearance: PRESENT: no acute distress Eye exam: PRESENT: PERRLA Respiratory exam: PRESENT: clear to auscultation rodrigue Cardiovascular exam: PRESENT: +S1, +S2 GI/Abdominal exam: PRESENT: soft Neurological exam: PRESENT: alert Results Laboratory Results: 12/09/18 04:29 12/09/18 04:29 12/08/18 12/08/18 12/09/18 21:10 23:59 00:51 WBC RBC Hgb Hct MCV MCH MCHC RDW Plt Count Seg Neutrophils % Sodium Cancelled Cancelled 139.0 Potassium Cancelled Cancelled 3.3 L Chloride Cancelled Cancelled 109 H Carbon Dioxide Cancelled Cancelled 25 Anion Gap Cancelled Cancelled 5 BUN Cancelled Cancelled 29 H Creatinine Cancelled Cancelled 0.99 Est GFR ( Amer) Cancelled Cancelled > 60 Est GFR (Non-Af Amer) Cancelled Cancelled Glucose Cancelled Cancelled 159 H Calcium Cancelled Cancelled 8.8 Magnesium 12/09/18 12/09/18 12/09/18 04:29 04:29 04:29 WBC 5.4 RBC 4.97 Hgb 12.5 Hct 40.1 MCV 81 MCH 25.2 L MCHC 31.2 L RDW 19.7 H Plt Count 227 Seg Neutrophils % 45.5 Sodium 136.6 L Potassium 3.7 Chloride 107 Carbon Dioxide 24 Anion Gap 6 BUN 25 H Creatinine 0.90 Est GFR ( Amer) > 60 Est GFR (Non-Af Amer) Glucose 329 H Calcium 8.8 Magnesium 1.8 Impressions: Chest X-Ray 12/08/18 14:39 IMPRESSION: Stable cardiomegaly No acute infiltrates Artifact from external defibrillator Assessment & Plan - Diagnosis (1) Hyperosmolar non-ketotic state in patient with type 2 diabetes mellitus Is this a current diagnosis for this admission?: Yes Plan: Start Januvia, metformin
[2018-12-10] MEDS: HEPARIN SOD (PORCINE) 5,000 UNIT/ML 1 ML VIAL SUBCUT SCH ×3 (05:45→21:34)
[2018-12-10 07:17] LABS: ABSOLUTE EOSINOPHILS # (AUTO) 0.2 10^3/uL (0.0-0.6); ABSOLUTE LYMPHOCYTES (AUTO) 2.1 10^3/uL (0.5-4.7); ABSOLUTE MONOCYTES (AUTO) 0.3 10^3/uL (0.1-1.4); ABSOLUTE NEUT (AUTO) 2.1 10^3/uL (1.7-8.2); BASOPHILS % (AUTO) 0.9 % (0-2); EOSINOPHILS % (AUTO) 4.1 % (0-6); HEMOGLOBIN 12.9 g/dL (12.0-15.5); LYMPHOCYTES % (AUTO) 44.4 % (13-45); MEAN CORPUSCULAR HEMOGLOBIN 25.2 pg (27.0-33.4); MEAN CORPUSCULAR HGB CONC 31.4 g/dL (32.0-36.0); MEAN CORPUSCULAR VOLUME 80 fl (80-97); MONOCYTES % (AUTO) 6.1 % (3-13); PLATELET COUNT 240 10^3/uL (150-450); RED BLOOD COUNT 5.11 10^6/uL (3.72-5.28); RED CELL DISTRIBUTION WIDTH 19.6 % (11.5-14.0); SEGMENTED NEUTROPHILS % (AUTO) 44.5 % (42-78); TOTAL CELLS COUNTED % (AUTO) 100 %; WHITE BLOOD COUNT 4.6 10^3/uL (4.0-10.5)
[2018-12-10] MEDS: SITAGLIPTIN PHOSPHATE 50 MG TABLET PO SCH ×2 (07:39→16:40)
[2018-12-10] MEDS: INSULIN LISPRO 100 UNIT/ML 3 ML VIAL SUBCUT SCH ×4 (07:39→21:33)
[2018-12-10] MEDS: METFORMIN HCL 500 MG TABLET PO SCH ×2 (07:39→16:40)
[2018-12-10] MEDS: DOCUSATE SODIUM 100 MG CAPSULE PO SCH (10:21)
[2018-12-10] MEDS: FAMOTIDINE 20 MG TABLET PO SCH ×2 (10:22→21:34)
--- NOTE | 2018-12-10 21:06 | PDOC PROGRESS REPORT ---
Subjective Progress Note for:: 12/10/18 Subjective:: Patient is seen by the bedside Reason For Visit: HYPERGLYCEMIA,ABDOMINAL WOUND,SYSTOLIC AND Physical Exam Vital Signs: Temp Pulse Resp BP Pulse Ox 98.2 F 88 17 128/66 H 100 12/10/18 15:10 12/10/18 15:10 12/10/18 15:10 12/10/18 15:10 12/10/18 15:10 Intake & Output 12/09/18 12/10/18 12/11/18 06:59 06:59 06:59 Intake Total 3222 2296 1192 Balance 3222 2296 1192 Weight 93.9 kg 94.2 kg General appearance: PRESENT: no acute distress Eye exam: PRESENT: PERRLA Respiratory exam: PRESENT: clear to auscultation rodrigue Cardiovascular exam: PRESENT: +S1, +S2 GI/Abdominal exam: PRESENT: soft Results Laboratory Results: 12/10/18 07:01 12/09/18 04:29 12/10/18 07:01 WBC 4.6 RBC 5.11 Hgb 12.9 Hct 41.0 MCV 80 MCH 25.2 L MCHC 31.4 L RDW 19.6 H Plt Count 240 Seg Neutrophils % 44.5 Impressions: Chest X-Ray 12/08/18 14:39 IMPRESSION: Stable cardiomegaly No acute infiltrates Artifact from external defibrillator Assessment & Plan - Diagnosis (1) Hyperosmolar non-ketotic state in patient with type 2 diabetes mellitus Is this a current diagnosis for this admission?: Yes Plan: continue present line of management
[2018-12-10] MEDS: ACETAMINOPHEN 325 MG TABLET PO PRN (22:00)
[2018-12-11] MEDS: ACETAMINOPHEN 325 MG TABLET PO PRN ×2 (03:04→08:01)
[2018-12-11] MEDS: HEPARIN SOD (PORCINE) 5,000 UNIT/ML 1 ML VIAL SUBCUT SCH ×2 (05:18→13:52)
[2018-12-11] MEDS: INSULIN LISPRO 100 UNIT/ML 3 ML VIAL SUBCUT SCH ×3 (07:57→16:46)
[2018-12-11] MEDS: SITAGLIPTIN PHOSPHATE 50 MG TABLET PO SCH ×2 (07:59→16:46)
[2018-12-11] MEDS: METFORMIN HCL 500 MG TABLET PO SCH ×2 (07:59→16:46)
[2018-12-11 08:08] LABS: ABSOLUTE EOSINOPHILS # (AUTO) 0.2 10^3/uL (0.0-0.6); ABSOLUTE LYMPHOCYTES (AUTO) 2.1 10^3/uL (0.5-4.7); ABSOLUTE MONOCYTES (AUTO) 0.3 10^3/uL (0.1-1.4); ABSOLUTE NEUT (AUTO) 2.1 10^3/uL (1.7-8.2); BASOPHILS % (AUTO) 0.5 % (0-2); EOSINOPHILS % (AUTO) 3.2 % (0-6); HEMATOCRIT 38.8 % (36.0-47.0); HEMOGLOBIN 12.3 g/dL (12.0-15.5); MEAN CORPUSCULAR HEMOGLOBIN 25.4 pg (27.0-33.4); MEAN CORPUSCULAR HGB CONC 31.7 g/dL (32.0-36.0); MEAN CORPUSCULAR VOLUME 80 fl (80-97); MONOCYTES % (AUTO) 7.3 % (3-13); PLATELET COUNT 229 10^3/uL (150-450); RED BLOOD COUNT 4.83 10^6/uL (3.72-5.28); RED CELL DISTRIBUTION WIDTH 19.3 % (11.5-14.0); TOTAL CELLS COUNTED % (AUTO) 100 %; WHITE BLOOD COUNT 4.7 10^3/uL (4.0-10.5)
[2018-12-11] MEDS: DOCUSATE SODIUM 100 MG CAPSULE PO SCH (10:10)
[2018-12-11] MEDS: FAMOTIDINE 20 MG TABLET PO SCH (10:11)
[2018-12-11] MEDS ORDERED: ONDANSETRON HCL INJ/PF 4 MG/2 ML SDV IV PRN (15:30)
[2018-12-11 16:38] VITALS: BP 117/59
--- NOTE | 2018-12-11 18:35 | PDOC DISCHARGE SUMMARY ---
Impression - Admit/DC Date/PCP Admission Date/Primary Care Provider: 12/08/18 13:55 TRAVIS SUBRAMANIAN MD Discharge Date: 12/11/18 - Discharge Diagnosis (1) Hyperosmolar non-ketotic state in patient with type 2 diabetes mellitus Is this a current diagnosis for this admission?: Yes (2) Chronic systolic (congestive) heart failure Is this a current diagnosis for this admission?: Yes - Additional Information Resuscitation Status: Full Code Discharge Diet: Diabetic Discharge Activity: Activity As Tolerated Referrals: TRAVIS SUBRAMANIAN MD [Primary Care Provider] - 12/20/18 2:00 pm Prescriptions: Metformin HCl [Glucophage 500 mg Tablet] 1,000 mg PO BIDACBS #180 tablet Sitagliptin Phosphate [Januvia 50 mg Tablet] 50 mg PO BIDACBS #90 tablet Empagliflozin [Jardiance] 25 mg PO DAILY #90 tablet Home Medications: Atorvastatin Calcium [Lipitor 40 mg Tablet] 40 mg PO DAILY 11/23/18 Furosemide [Lasix 40 mg Tablet] 40 mg PO DAILY 11/23/18 Gabapentin [Neurontin] 800 mg PO Q8 11/23/18 Omeprazole 40 mg PO Q6AM 11/23/18 Sacubitril/Valsartan [Entresto 49 mg/51 mg Tablet] 1 tab PO BID 11/23/18 Amox Tr/Potassium Clavulanate [Augmentin 875-125 mg Tablet] 1 tab PO BID #20 tablet MDD FILLED 12/01 FOR 10 DAY SUPPLY 12/01/18 Insulin Aspart [Novolog Flexpen] See Protocol SQ ASDIR #0 12/01/18 Insulin Detemir [Levemir] 25 unit SQ BID #1 vial 12/01/18 Metoprolol Succinate [Toprol Xl 25 mg Tab.sr] 25 mg PO DAILY #30 tab.sr.24h 12/01/18 Acetaminophen [Tylenol 325 mg Tablet] 650 mg PO Q4HP PRN tablet 12/11/18 Empagliflozin [Jardiance] 25 mg PO DAILY #90 tablet 12/11/18 Metformin HCl [Glucophage 500 mg Tablet] 1,000 mg PO BIDACBS #180 tablet 12/11/18 Sitagliptin Phosphate [Januvia 50 mg Tablet] 50 mg PO BIDACBS #90 tablet 12/11/18 History of Present Illiness History of Present Illness: EDUARDA JARRELL is a 68 year old female, She presented to the emergency room with hyperosmolar nonketotic diabetes mellitus with altered mental status, she was initially admitted by the hospitalist service. Patient is new to our practice, I saw her for the first time last week when she presented to the office as a new patient, she was transferred to my service after the realization that she was my patient [facility] Hospital Course: Patient was admitted for the management of hyperosmolar nonketotic diabetes mellitus, she was consciously treated with intravenous fluid therapy because she has a history of cardiomyopathy with chronic systolic heart failure. It seems that she has type 2 diabetes mellitus, she was only on insulin therapy which is not adequate therapy for effective management of type II. The primary defect in type 2 diabetes mellitus is insulin resistance. On this admission she was sta rted on oral agents including Januvia, metformin, Jardiance, she also was seen in consultation by simulation educator. Patient has presently optimized inpatient care she is discharged home today to follow-up patient Physical Exam Vital Signs: Temp Pulse Resp BP Pulse Ox 98.7 F 86 16 117/59 L 100 12/11/18 16:30 12/11/18 16:30 12/11/18 16:30 12/11/18 16:30 12/11/18 16:30 Intake & Output 12/10/18 12/11/18 12/12/18 06:59 06:59 06:59 Intake Total 2296 1192 680 Output Total 250 Balance 2296 1192 430 Weight 94.2 kg 95 kg General appearance: PRESENT: no acute distress Eye exam: PRESENT: PERRLA Respiratory exam: PRESENT: clear to auscultation rodrigue Cardiovascular exam: PRESENT: +S1, +S2 GI/Abdominal exam: PRESENT: soft Results Laboratory Results: WBC 4.7 10^3/uL (4.0-10.5) 12/11/18 07:30 RBC 4.83 10^6/uL (3.72-5.28) 12/11/18 07:30 Hgb 12.3 g/dL (12.0-15.5) 12/11/18 07:30 Hct 38.8 % (36.0-47.0) 12/11/18 07:30 MCV 80 fl (80-97) 12/11/18 07:30 MCH 25.4 pg (27.0-33.4) L 12/11/18 07:30 MCHC 31.7 g/dL (32.0-36.0) L 12/11/18 07:30 RDW 19.3 % (11.5-14.0) H 12/11/18 07:30 Plt Count 229 10^3/uL (150-450) 12/11/18 07:30 Lymph % (Auto) 45.0 % (13-45) 12/11/18 07:30 Miller % (Auto) 7.3 % (3-13) 12/11/18 07:30 Eos % (Auto) 3.2 % (0-6) 12/11/18 07:30 Baso % (Auto) 0.5 % (0-2) 12/11/18 07:30 Absolute Neuts (auto) 2.1 10^3/uL (1.7-8.2) 12/11/18 07:30 Absolute Lymphs (auto) 2.1 10^3/uL (0.5-4.7) 12/11/18 07:30 Absolute Monos (auto) 0.3 10^3/uL (0.1-1.4) 12/11/18 07:30 Absolute Eos (auto) 0.2 10^3/uL (0.0-0.6) 12/11/18 07:30 Absolute Basos (auto) 0.0 10^3/uL (0.0-0.2) 12/11/18 07:30 Seg Neutrophils % 44.0 % (42-78) 12/11/18 07:30 VBG pH 7.34 (7.30-7.42) 12/08/18 11:40 VBG pCO2 51.4 mmHg (35-63) 12/08/18 11:40 VBG HCO3 27.2 mmol/L (20-32) 12/08/18 11:40 VBG Base Excess 0.7 mmol/L 12/08/18 11:40 Sodium 136.6 mmol/L (137-145) L 12/09/18 04:29 Potassium 3.7 mmol/L (3.6-5.0) 12/09/18 04:29 Chloride 107 mmol/L (98-107) 12/09/18 04:29 Carbon Dioxide 24 mmol/L (22-30) 12/09/18 04:29 Anion Gap 6 (5-19) 12/09/18 04:29 BUN 25 mg/dL (7-20) H 12/09/18 04:29 Creatinine 0.90 mg/dL (0.52-1.25) 12/09/18 04:29 Est GFR ( Amer) > 60 (>60) 12/09/18 04:29 Est GFR (Non-Af Amer) Cancelled 12/08/18 23:59 Est GFR (MDRD) Non-Af > 60 (>60) 12/09/18 04:29 Glucose 329 mg/dL (75-110) H 12/09/18 04:29 POC Glucose 287 mg/dL (70-110) H 12/11/18 16:43 Hemoglobin A1c % > 14.0 % (4.7-6.0) H 12/09/18 04:29 Calcium 8.8 mg/dL (8.4-10.2) 12/09/18 04:29 Magnesium 1.8 mg/dL (1.6-2.3) 12/09/18 04:29 Total Bilirubin 0.4 mg/dL (0.2-1.3) 12/08/18 11:22 Direct Bilirubin 0.2 mg/dL (0.0-0.4) 12/08/18 11:22 Neonat Total Bilirubin Not Reportable 12/08/18 11:22 Neonat Direct Bilirubin Not Reportable 12/08/18 11:22 Neonat Indirect Bili Not Reportable 12/08/18 11:22 AST 19 U/L (14-36) 12/08/18 11:22 ALT 17 U/L (<35) 12/08/18 11:22 Alkaline Phosphatase 113 U/L (38-126) 12/08/18 11:22 Ammonia < 8.7 umol/L (9-33) L 12/08/18 15:20 Total Protein 5.4 g/dL (6.3-8.2) L 12/08/18 11:22 Albumin 2.6 g/dL (3.5-5.0) L 12/08/18 11:22 Lipase 45.8 U/L (23-300) 12/08/18 11:22 EGFR Cancelled 12/08/18 23:59 Urine Color STRAW 12/08/18 12:32 Urine Appearance CLEAR 12/08/18 12:32 Urine pH 7.0 (5.0-9.0) 12/08/18 12:32 Ur Specific [place] 1.024 12/08/18 12:32 Urine Protein 100 mg/dL (NEGATIVE) H 12/08/18 12:32 Urine Glucose (UA) >=500 mg/dL (NEGATIVE) H 12/08/18 12:32 Urine Ketones TRACE mg/dL (NEGATIVE) H 12/08/18 12:32 Urine Blood NEGATIVE (NEGATIVE) 12/08/18 12:32 Urine Nitrite NEGATIVE (NEGATIVE) 12/08/18 12:32 Urine Bilirubin NEGATIVE (NEGATIVE) 12/08/18 12:32 Urine Urobilinogen NEGATIVE mg/dL (<2.0) 12/08/18 12:32 Ur Leukocyte Esterase NEGATIVE (NEGATIVE) 12/08/18 12:32 Urine WBC (Auto) 0 /HPF 12/08/18 12:32 Urine RBC (Auto) 0 /HPF 12/08/18 12:32 Squamous Epi Cells Auto 1 /HPF 12/08/18 12:32 Urine Ascorbic Acid NEGATIVE (NEGATIVE) 12/08/18 12:32 Urine Opiates Screen NEGATIVE 12/08/18 12:32 Urine Methadone Screen NEGATIVE 12/08/18 12:32 Ur Barbiturates Screen NEGATIVE 12/08/18 12:32 Ur Phencyclidine Scrn NEGATIVE 12/08/18 12:32 Ur Amphetamines Screen NEGATIVE 12/08/18 12:32 U Benzodiazepines Scrn UNCONFIRMED POSITIVE 12/08/18 12:32 Urine Cocaine Screen NEGATIVE 12/08/18 12:32 U Marijuana (THC) Screen NEGATIVE 12/08/18 12:32 Impressions: Chest X-Ray 12/08/18 14:39 IMPRESSION: Stable cardiomegaly No acute infiltrates Artifact from external defibrillator Stroke Is this a Stroke Patient?: No Reason(s) for not prescribing Anti-thrombolytic therapy:: Not indicated Stroke Pt being discharged on Anti-coagulation therapy?: No Reason(s) for not prescribing Anti-coagulation therapy:: Not indicated Stroke Pt being discharged on Statins?: No Reason(s) for not prescribing Statins therapy:: Not indicated Acute Heart Failure - Is this a Heart Failure Patient?: No Follow-up Appointment scheduled within 7 days?: Yes
== END 2018-12-11 17:41 | disposition home health service (06) | DRG 638 ==
LOC: ER 11:04 → EH 13:55 → 4N 18:25
PROVIDERS: ADMIT Family Medicine; ATTEND Internal Medicine
DX: E11.00 Type 2 diabetes mellitus with hyperosmolarity without nonketotic hyperglycemic-hyperosmolar coma (NKHHC) (principal); I50.22 Chronic systolic (congestive) heart failure; L02.214 Cutaneous abscess of groin; I11.0 Hypertensive heart disease with heart failure; E66.9 Obesity, unspecified; E11.65 Type 2 diabetes mellitus with hyperglycemia; E78.5 Hyperlipidemia, unspecified; J44.9 Chronic obstructive pulmonary disease, unspecified; F32.9 Major depressive disorder, single episode, unspecified; G89.29 Other chronic pain; Z79.899 Other long term (current) drug therapy; Z79.4 Long term (current) use of insulin; Z83.3 Family history of diabetes mellitus; Z82.49 Family history of ischemic heart disease and other diseases of the circulatory system; Z79.891 Long term (current) use of opiate analgesic
CPT/HCPCS: 36415; 71045; 80048; 80053; 80307; 81001; 82140; 82803; 82962; 83036; 83519; 83690; 83735; 85025; 93005; 93010; 99285; J1644; J1815; J1885; J2543; J3480; J3490; J7050

== ENCOUNTER → 2019-04-10 | Outpatient (CLI) | payer MEDICARE, MEDICAID ==
--- NOTE | 2019-04-10 14:49 | RADIOLOGY REPORT (SQ) ---
EXAM DESCRIPTION: CHEST PA/LATERAL COMPLETED DATE/TIME: 04/10/2019 1:30 pm REASON FOR STUDY: SOB COMPARISON: 12/08/2018 EXAM PARAMETERS: NUMBER OF VIEWS: two views TECHNIQUE: Digital Frontal and Lateral radiographic views of the chest acquired. RADIATION DOSE: NA LIMITATIONS: none FINDINGS: LUNGS AND PLEURA: Mild pulmonary edema. MEDIASTINUM AND HILAR STRUCTURES: No masses or contour abnormalities. HEART AND VASCULAR STRUCTURES: Cardiomegaly. BONES: No acute findings. HARDWARE: None in the chest. OTHER: No other significant finding. IMPRESSION: Cardiomegaly with mild pulmonary edema. TECHNICAL DOCUMENTATION: JOB ID: [id number] [employer]- All Rights Reserved Reading location - IP/workstation name: [email or web address]
== END ==
LOC: OD 13:15
PROVIDERS: ATTEND Internal Medicine
DX: I51.7 Cardiomegaly (principal); R06.02 Shortness of breath
CPT/HCPCS: 71046

== ENCOUNTER → 2019-04-25 | Outpatient (CLI) | payer MEDICARE, MEDICAID ==
--- NOTE | 2019-04-27 13:21 | RADIOLOGY REPORT (SQ) ---
EXAM DESCRIPTION: MRI RT LOWER JOINT WITHOUT COMPLETED DATE/TIME: 04/25/2019 2:29 pm REASON FOR STUDY: M25.561 PAIN IN RIGHT KNEE M25.561 PAIN IN RIGHT KNEE COMPARISON: None. TECHNIQUE: Rightknee images acquired and stored on PACS. Multiplanar images include fat sensitive s equences as T1, water sensitive sequences as FST2 or STIR, cartilage sensitive sequences as FSPD, and gradient echo sequences. LIMITATIONS: Motion. FINDINGS: JOINT AND BURSAE: Large effusion. BONE CORTEX AND MARROW: No alteration of signal to suggest marrow replacement. No worrisome bone lesi ons. No occult fracture. ACL: Intact. No degeneration or ganglion cyst. PCL: Intact. MCL: Intact. No periligamentous edema or fluid. LCL: Intact. No periligamentous edema or fluid. MEDIAL MENISCUS: Attenuated. No acute tear. LATERAL MENISCUS: Intact. MEDIAL COMPARTMENT: Approximately 2 cm osteochondral lesion articular surface femoral condyle. Subch ondral edema extends throughout the femoral condyle. LATERAL COMPARTMENT: Cartilage thinning. No large osteophytes or subchondral edema. PATELLA: Thinning of the patellar cartilage. Mild subchondral edema medial to midline. Intact retin aculum. EXTENSOR MECHANISM: Mildly increased signal in the patellar tendon. SOFT TISSUES: Small Winston cyst. OTHER: No other significant finding. IMPRESSION: 1. Focal osteochondral lesion articular surface medial femoral condyle. 2. Patellar chondromalacia. 3. Large effusion. 4. Small Winston's cyst. TECHNICAL DOCUMENTATION: JOB ID: [id number] [employer]- All Rights Reserved Reading location - IP/workstation name: [email or web address]
== END ==
LOC: RAD 12:49
PROVIDERS: ATTEND Physician Assistant
DX: M25.561 Pain in right knee (principal); M22.41 Chondromalacia patellae, right knee; M71.21 Synovial cyst of popliteal space [Baker], right knee; M25.461 Effusion, right knee

== ENCOUNTER 2019-06-03 11:03 | Inpatient (IN) | payer MEDICARE, MEDICAID ==
--- NOTE | 2019-06-03 11:39 | ER Document Report ---
ED Medical Screen (RME) - General Chief Complaint: Flank Pain Stated Complaint: FLANK PAIN Time Seen by Provider: 06/03/19 11:36 Primary Care Provider: SARAHI HEATON PA [Primary Care Provider] - Follow up as needed Mode of Arrival: Wheelchair Information source: Patient Notes: 68-year-old female presented to ED for left flank pain. She states she had a heart monitor on recently and she thinks that is why her pain is in her bilateral flank for the last month. She states she recently had a heart monitor on and she did note that was what was causing the problem. She states she also has rib cage pain she thinks she might of hit the corner of the bathroom also. She is alert oriented respirations regular nonlabored she is on 2 L O2 nasal cannula. She is a former smoker but has not smoked in about 20 years. She has a history of asthma and COPD. She does wear O2 2 L at home. I have greeted and performed a rapid initial assessment of this patient. A c omprehensive ED assessment and evaluation of the patient, analysis of test results and completion of medical decision making process will be conducted by an additional ED providers. TRAVEL OUTSIDE OF THE [place] IN LAST 30 DAYS: No - Related Data Allergies/Adverse Reactions: No Known Allergies Allergy (Verified 11/22/18 17:34) Past Medical History - Past Medical History Cardiac Medical History: Reports: Hx Congestive Heart Failure, Hx Hypercholesterolemia, Hx Hypertension Pulmonary Medical History: Reports: Hx Asthma, Hx COPD Denies: Hx Tuberculosis Neurological Medical History: Denies: Hx Seizures Endocrine Medical History: Reports: Hx Diabetes Mellitus Type 2. Denies: Hx Diabetes Mellitus Type 1, Hx Hyperthyroidism, Hx Hypothyroidism Renal/ Medical History: Denies: Hx Peritoneal Dialysis GI Medical History: Denies: Hx Cirrhosis, Hx Crohn's Disease, Hx Hepatitis, Hx Ulcerative Colitis Musculoskeltal Medical History: Denies Hx Arthritis, Denies Hx Gout Skin Medical History: Denies Hx Eczema, Denies Hx Psoriasis Psychiatric Medical History: Reports: Hx Depression Infectious Medical History: Denies: Hx Hepatitis Past Surgical History: Reports: Hx Appendectomy, Hx Section - x2, Hx Orthopedic Surgery - toe - Immunizations Immunizations up to date: Yes Hx Diphtheria, Pertussis, Tetanus Vaccination: Yes - 2011 Doctor's Discharge - Discharge Referrals: SARAHI HEATON PA [Primary Care Provider] - Follow up as needed
--- NOTE | 2019-06-03 13:46 | RADIOLOGY REPORT (SQ) ---
EXAM DESCRIPTION: CHEST 2 VIEWS COMPLETED DATE/TIME: 06/03/2019 1:31 pm REASON FOR STUDY: Bilateral flank/chest pain COMPARISON: 04/10/2019. NUMBER OF VIEWS: Two views. TECHNIQUE: Frontal and lateral radiographic views of the chest acquired. LIMITATIONS: None. FINDINGS: LUNGS AND PLEURA: Basilar atelectasis and bilateral pleural effusions. MEDIASTINUM AND HILAR STRUCTURES: No masses or contour abnormality. HEART AND VASCULAR STRUCTURES: Cardiac enlargement. Vascular congestion. BONES: No acute findings. HARDWARE: None in the chest. OTHER: No other significant finding. IMPRESSION: CARDIOMEGALY AND VASCULAR CONGESTION WITH BASILAR ATELECTASIS AND BILATERAL PLEURAL EFFU SIONS. TECHNICAL DOCUMENTATION: JOB ID: [id number] [employer]- All Rights Reserved Reading location - IP/workstation name: [email or web address]
[2019-06-03 14:24] LABS: APPEARANCE,URINE CLEAR; BILIRUBIN,URINE NEGATIVE (NEGATIVE); COLOR,URINE YELLOW; GLUCOSE, URINE 50 mg/dL (NEGATIVE); KETONES,URINE TRACE mg/dL (NEGATIVE); PROTEIN,URINE >=500 mg/dL (NEGATIVE); URINE SPECIFIC GRAVITY 1.018; UROBILINOGEN,URINE NEGATIVE mg/dL (<2.0)
[2019-06-03 14:30] LABS: ABSOLUTE BASOPHILS # (AUTO) 0.1 10^3/uL (0.0-0.2); ABSOLUTE EOSINOPHILS # (AUTO) 0.2 10^3/uL (0.0-0.6); ABSOLUTE LYMPHOCYTES (AUTO) 2.8 10^3/uL (0.5-4.7); ABSOLUTE MONOCYTES (AUTO) 0.5 10^3/uL (0.1-1.4); ABSOLUTE NEUT (AUTO) 2.5 10^3/uL (1.7-8.2); BASOPHILS % (AUTO) 0.8 % (0-2); EOSINOPHILS % (AUTO) 3.5 % (0-6); HEMATOCRIT 45.1 % (36.0-47.0); HEMOGLOBIN 14.7 g/dL (12.0-15.5); LYMPHOCYTES % (AUTO) 46.3 % (13-45); MEAN CORPUSCULAR HEMOGLOBIN 27.1 pg (27.0-33.4); MEAN CORPUSCULAR HGB CONC 32.6 g/dL (32.0-36.0); MEAN CORPUSCULAR VOLUME 83 fl (80-97); MONOCYTES % (AUTO) 7.8 % (3-13); PLATELET COUNT 189 10^3/uL (150-450); RED BLOOD COUNT 5.44 10^6/uL (3.72-5.28); RED CELL DISTRIBUTION WIDTH 18.2 % (11.5-14.0); SEGMENTED NEUTROPHILS % (AUTO) 41.6 % (42-78); TOTAL CELLS COUNTED % (AUTO) 100 %
--- NOTE | 2019-06-03 14:36 | EKG REPORT ---
SEVERITY:- ABNORMAL ECG - SINUS RHYTHM PROBABLE LEFT ATRIAL ABNORMALITY IVCD, CONSIDER ATYPICAL LBBB : Confirmed by: Radha Terry MD 03-Jun-2019 14:34:26
[2019-06-03 14:53] LABS: ALBUMIN 3.5 g/dL (3.5-5.0); ALKALINE PHOSPHATASE 187 U/L (38-126); ANION GAP 7 (5-19); ASPARTATE AMINO TRANSFERASE 43 U/L (14-36); BILIRUBIN,DIRECT 0.2 mg/dL (0.0-0.4); BLOOD UREA NITROGEN 18 mg/dL (7-20); CALCIUM 9.2 mg/dL (8.4-10.2); CARBON DIOXIDE 29 mmol/L (22-30); CHLORIDE 106 mmol/L (98-107); GLUCOSE 142 mg/dL (75-110); TOTAL PROTEIN 6.9 g/dL (6.3-8.2)
--- NOTE | 2019-06-03 18:04 | ER Document Report ---
ED General - General Chief Complaint: Flank Pain Stated Complaint: FLANK PAIN Time Seen by Provider: 06/03/19 11:36 Primary Care Provider: SARAHI HEATON PA [NO LOCAL MD] - Follow up as needed Mode of Arrival: Wheelchair TRAVEL OUTSIDE OF THE [place] IN LAST 30 DAYS: No - HPI Notes: Patient is a 68-year-old female presents emergency department for evaluation. She tells me she short of breath, has been so since yesterday. She states she was more swollen yesterday, but she continues to be short of breath. She does complain of some orthopnea and PND. She had complained of some pain in her ribs earlier, she denies any that pain to me. She states she has been taking her medications as prescribed. She is had no fevers. She has had an intermittent cough, nonproductive. - Related Data Allergies/Adverse Reactions: No Known Allergies Allergy (Verified 11/22/18 17:34) Past Medical History - General Information source: Patient - Social History Smoking Status: Former Smoker Chew tobacco use (# tins/day): No Frequency of alcohol use: None Drug Abuse: None Family History: CAD, DM, Hypertension. denies: Malignancy Patient has suicidal ideation: No Patient has homicidal ideation: No - Past Medical History Cardiac Medical History: Reports: Hx Congestive Heart Failure, Hx Hypercholesterolemia, Hx Hypertension Pulmonary Medical History: Reports: Hx Asthma, Hx COPD Denies: Hx Tuberculosis Neurological Medical History: Denies: Hx Seizures Endocrine Medical History: Reports: Hx Diabetes Mellitus Type 2. Denies: Hx Diabetes Mellitus Type 1, Hx Hyperthyroidism, Hx Hypothyroidism Renal/ Medical History: Denies: Hx Peritoneal Dialysis GI Medical History: Denies: Hx Cirrhosis, Hx Crohn's Disease, Hx Hepatitis, Hx Ulcerative Colitis Musculoskeletal Medical History: Denies Hx Arthritis, Denies Hx Gout Skin Medical History: Denies Hx Eczema, Denies Hx Psoriasis Psychiatric Medical History: Reports: Hx Depression Infectious Medical History: Denies: Hx Hepatitis Past Surgical History: Reports: Hx Appendectomy, Hx Section - x2, Hx Orthopedic Surgery - toe - Immunizations Immunizations up to date: Yes Hx Diphtheria, Pertussis, Tetanus Vaccination: Yes - 2011 Hx Pneumococcal Vaccination: 12/17/10 Review of Systems - Review of Systems Constitutional: Weakness Cardiovascular: See HPI Respiratory: See HPI -: Yes All other systems reviewed and negative Physical Exam - Vital signs Vitals: Pulse Resp BP Pulse Ox 72 18 149/88 H 96 06/03/19 11:32 06/03/19 11:32 06/03/19 11:32 06/03/19 11:32 - Notes Notes: This is a 68-year-old female who appears her stated age, no acute distress. She is oxygen per nasal cannula in place. Vital signs reviewed, please refer to chart. Head is normocephalic, atraumatic. Pupils equal round, reactive to light. Neck is supple without meningismus. Heart is regular rate and rhythm. Lungs reveal markedly diminished breath sounds at the base with superimposed rales. Abdomen is soft, nontender, normoactive bowel sounds throughout. Extremities without cyanosis, clubbing. Posterior calves are nontender. She does have 2+ pitting edema to the pretibial region. Peripheral pulses are equal. Skin is warm and dry. Patient is awake, alert, neurological exam is nonfocal. Course - Re-evaluation Re-evalutation: 06/03/19 18:02 Patient presents emergency department for evaluation. She had laboratory investigations and imaging as ordered through triage. I did order a proBNP as well. Patient's proBNP is double what it normally is. Her chest x-ray shows pulmonary edema bilateral pleural effusions. I gave her some IV Lasix. I spoke with Dr. Fischer, we will admit the patient for further care. - Vital Signs Vital signs: Temp Pulse Resp BP Pulse Ox 98.1 F 73 20 137/78 H 95 06/03/19 16:25 06/03/19 16:25 06/03/19 16:25 06/03/19 16:25 06/03/19 16:25 - Laboratory Result Diagrams: 06/03/19 14:09 06/03/19 14:09 Laboratory results interpreted by me: 06/03/19 06/03/19 06/03/19 13:44 14:09 14:09 RBC 5.44 H RDW 18.2 H Lymph % (Auto) 46.3 H Seg Neutrophils % 41.6 L Est GFR ( Amer) 57 L Est GFR (MDRD) Non-Af 47 L Glucose 142 H AST 43 H ALT 93 H Alkaline Phosphatase 187 H NT-Pro-B Natriuret Pep Lipase 18.2 L Urine Protein >=500 H Urine Glucose (UA) 50 H Urine Ketones TRACE H Urine Blood SMALL H 06/03/19 14:09 RBC RDW Lymph % (Auto) Seg Neutrophils % Est GFR ( Amer) Est GFR (MDRD) Non-Af Glucose AST ALT Alkaline Phosphatase NT-Pro-B Natriuret Pep 64621 H Lipase Urine Protein Urine Glucose (UA) Urine Ketones Urine Blood - Diagnostic Test Radiology reviewed: Image reviewed, Reports reviewed Radiology results interpreted by me: 06/03/19 18:03 06/03/19 14:09 06/03/19 14:09 MCV 83 fl (80-97) 06/03/19 14:09 MCH 27.1 pg (27.0-33.4) 06/03/19 14:09 MCHC 32.6 g/dL (32.0-36.0) 06/03/19 14:09 RDW 18.2 % (11.5-14.0) H 06/03/19 14:09 Seg Neutrophils % 41.6 % (42-78) L 06/03/19 14:09 Chloride 106 mmol/L (98-107) 06/03/19 14:09 Carbon Dioxide 29 mmol/L (22-30) 06/03/19 14:09 Anion Gap 7 (5-19) 06/03/19 14:09 Est GFR ( Amer) 57 (>60) L 06/03/19 14:09 Glucose 142 mg/dL (75-110) H 06/03/19 14:09 Calcium 9.2 mg/dL (8.4-10.2) 06/03/19 14:09 Total Bilirubin 1.0 mg/dL (0.2-1.3) 06/03/19 14:09 AST 43 U/L (14-36) H 06/03/19 14:09 Alkaline Phosphatase 187 U/L (38-126) H 06/03/19 14:09 Total Protein 6.9 g/dL (6.3-8.2) 06/03/19 14:09 Albumin 3.5 g/dL (3.5-5.0) 06/03/19 14:09 Lipase 18.2 U/L (23-300) L 06/03/19 14:09 Urine Color YELLOW 06/03/19 13:44 Urine Appearance CLEAR 06/03/19 13:44 Urine pH 5.0 (5.0-9.0) 06/03/19 13:44 Ur Specific [place] 1.018 06/03/19 13:44 Urine Protein >=500 mg/dL (NEGATIVE) H 06/03/19 13:44 Urine Glucose (UA) 50 mg/dL (NEGATIVE) H 06/03/19 13:44 Urine Ketones TRACE mg/dL (NEGATIVE) H 06/03/19 13:44 Urine Blood SMALL (NEGATIVE) H 06/03/19 13:44 Urine RBC (Auto) 6 /HPF 06/03/19 13:44 06/03/19 06/03/19 14:09 14:09 Troponin I 0.032 NT-Pro-B Natriuret Pep 87095 H Chest X-Ray 06/03/19 11:40 IMPRESSION: CARDIOMEGALY AND VASCULAR CONGESTION WITH BASILAR ATELECTASIS AND BILATERAL PLEURAL EFFUSIONS. - EKG Interpretation by Me Additional EKG results interpreted by me: 06/03/19 18:03 Sinus mechanism with rate of 75 bpm. Left bundle branch block. No significant change from prior. Discharge - Discharge Clinical Impression: Pulmonary edema, Acute exacerbation of CHF (congestive heart failure), Bilateral pleural effusion Condition: Stable Disposition: ADMITTED INPATIENT Admitting Provider: Amado - Regular medical floor Unit Admitted: IMCU Referrals: SARAHI HEATON PA [NO LOCAL MD] - Follow up as needed
[2019-06-03] MEDS ORDERED: DEXTROSE 40% GEL 15 GM TUBE PO PRN ×2 (20:53)
[2019-06-03] MEDS ORDERED: GLUCAGON,HUMAN RECOMB 1 MG INJ IM PRN (20:53)
[2019-06-03] MEDS ORDERED: DEXTROSE 50%-WATER 25 GM/50 ML DISP.SYRIN IV PRN ×2 (20:53)
[2019-06-03 23:22] LABS: URINE CREATININE 94.4 mg/dL (15-278)
[2019-06-03] MEDS: NORMAL SALINE 250 ML with FUROSEMIDE 250 MG IV PRN ×2 (23:39)
[2019-06-03] MEDS: INSULIN LISPRO 100 UNIT/ML 3 ML VIAL SUBCUT SCH (23:40)
[2019-06-03 23:52] LABS: INTERNATIONAL RATION (INR) 1.01; PROTHROMBIN TIME 13.3 SEC (11.4-15.4)
[2019-06-03 23:53] LABS: PARTIAL THROMBOPLASTIN TIME 26.2 SEC (23.5-35.8)
[2019-06-04] MEDS: HEPARIN SOD (PORCINE) 5,000 UNIT/ML 1 ML VIAL SUBCUT SCH ×4 (00:07→21:29)
[2019-06-04 00:14] LABS: CREATINE KINASE MB 5.92 ng/mL (<4.55); TROPONIN I 0.034 ng/mL
[2019-06-04 00:19] LABS: FREE T4 (FREE THYROXINE) 1.54 ng/dL (0.78-2.19)
[2019-06-04 00:21] LABS: URINE PROTEIN 944.5 mg/dL (<12)
[2019-06-04] MEDS ORDERED: INFLUENZA QUAD (6MOS+) 2019-20 VAC 0.5 ML SYR IM ONE (00:31)
[2019-06-04 00:33] LABS: THYROID STIMULATING HORMONE 1.69 uIU/mL (0.47-4.68)
[2019-06-04] MEDS: ACETAMINOPHEN 325 MG TABLET PO PRN (02:25)
[2019-06-04 05:08] LABS: ARTERIAL BLOOD BASE EXCESS 1.4 mmol/L; ARTERIAL BLOOD H2CO3 1.36 mmol/L (1.05-1.35); ARTERIAL BLOOD HCO3 26.7 mmol/L (20-24); ARTERIAL BLOOD O2 SATURATION 90.9 % (94-98); ARTERIAL BLOOD PCO2 45.1 mmHg (35-45); ARTERIAL BLOOD PH 7.39 (7.35-7.45); ARTERIAL BLOOD PO2 60.5 mmHg (80-100); ARTERIAL BLOOD TOTAL CO2 28.1 mmol/L (21-25)
[2019-06-04 05:15] LABS: ARTERIAL BLOOD FIO2 2L
[2019-06-04 06:16] LABS: ABSOLUTE EOSINOPHILS # (AUTO) 0.2 10^3/uL (0.0-0.6); ABSOLUTE LYMPHOCYTES (AUTO) 2.2 10^3/uL (0.5-4.7); ABSOLUTE MONOCYTES (AUTO) 0.4 10^3/uL (0.1-1.4); ABSOLUTE NEUT (AUTO) 1.8 10^3/uL (1.7-8.2); BASOPHILS % (AUTO) 0.7 % (0-2); EOSINOPHILS % (AUTO) 3.4 % (0-6); HEMATOCRIT 40.3 % (36.0-47.0); HEMOGLOBIN 12.9 g/dL (12.0-15.5); LYMPHOCYTES % (AUTO) 47.2 % (13-45); MEAN CORPUSCULAR HEMOGLOBIN 26.3 pg (27.0-33.4); MEAN CORPUSCULAR HGB CONC 32.1 g/dL (32.0-36.0); MEAN CORPUSCULAR VOLUME 82 fl (80-97); MONOCYTES % (AUTO) 8.4 % (3-13); PLATELET COUNT 160 10^3/uL (150-450); RED BLOOD COUNT 4.91 10^6/uL (3.72-5.28); RED CELL DISTRIBUTION WIDTH 17.9 % (11.5-14.0); SEGMENTED NEUTROPHILS % (AUTO) 40.3 % (42-78); TOTAL CELLS COUNTED % (AUTO) 100 %; WHITE BLOOD COUNT 4.6 10^3/uL (4.0-10.5)
[2019-06-04 06:30] LABS: CHOLESTEROL 244.58 mg/dL (0-200); TRIGLYCERIDES 102 mg/dL (<150)
[2019-06-04 06:39] LABS: CREATINE KINASE MB 4.39 ng/mL (<4.55); TROPONIN I 0.033 ng/mL
[2019-06-04 06:41] LABS: DIRECT LDL 112 mg/dL (<100)
[2019-06-04] MEDS: INSULIN LISPRO 100 UNIT/ML 3 ML VIAL SUBCUT SCH ×4 (09:53→22:22)
[2019-06-04 12:38] LABS: CREATINE KINASE MB 4.14 ng/mL (<4.55); TROPONIN I 0.021 ng/mL
[2019-06-04] MEDS ORDERED: (PENDING PHARMACY ID) (Oxycodone Hcl/Acetaminophen [Oxycodone-Acetaminophen 10-325] 1 EACH PO PRN (13:38)
[2019-06-04] MEDS ORDERED: [UNRECOGNIZED DRUG - OTHER] SQ SCH (13:45)
[2019-06-04] MEDS: METOPROLOL SUCCINATE 25 MG TAB.SR.24H PO SCH (15:10)
[2019-06-04] MEDS: SPIRONOLACTONE 25 MG TABLET PO SCH (15:10)
[2019-06-04] MEDS: ATORVASTATIN CALCIUM 40 MG TABLET PO SCH (15:10)
[2019-06-04] MEDS: OXYCODONE-ACETAMINOPHEN 5-325 MG TABLET PO PRN (15:10)
[2019-06-04] MEDS: SACUBITRIL/VALSARTAN 49 MG/51 MG TABLET PO SCH ×2 (15:15→21:29)
--- NOTE | 2019-06-04 16:49 | PDOC H&P ---
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 She came to emergency room for evaluation of flank pain and shortness of breath. In the emergency room she was found to be in CHF. Patient have a history of chronic CHF she is on evidence-based medication for the management of CHF including Entresto, evidence-based beta-vianey, metoprolol, she is supposed to be on diuretic furosemide but she told me that she ran out, I believe she had a refill that was prescribed from the office. I started recently following this patient, in the last 3 months she has been scheduled to follow-up with me on a monthly basis because of her noncompliance, diabetes is not well controlled recently started a new medication, a combination of long-acting insulin and GLP agonist Soliqua. She was supposed to be on Jardiance but it was not listed on the medication list that was reconciled by the pharmacist. I saw her on the floor she is not overly different from the patient I seen on a monthly basis in the office in the last 3 months, part of the reason for the frequent monthly evaluation is to mitigate against hospital admission, before I started following this patient outpatient she has multiple hospital admission for CHF related complications Past Medical History Cardiac Medical History: Reports: Congestive Heart Failure, Hyperlipidema, Hypertension Pulmonary Medical History: Reports: Asthma, Chronic Obstructive Pulmonary Disease (COPD) Neurological Medical History: Denies: Seizures Endocrine Medical History: Reports: Diabetes Mellitus Type 2 Renal/ Medical History: Reports: Other - Nephrotic range proteinuria GI Medical History: Musculoskeltal Medical History: Reports: Arthritis Psychiatric Medical History: Reports: Depression Past Surgical History Past Surgical History: Reports: Appendectomy, Section - x2, Orthopedic Surgery - toe Social History Smoking Status: Former Smoker Electronic Cigarette use?: No Frequency of Alcohol Use: None Hx Recreational Drug Use: No Drugs: None Hx Prescription Drug Abuse: No Family History Family History: CAD, DM, Hypertension. denies: Malignancy Parental Family History Reviewed: Yes Children Family History Reviewed: Yes Sibling(s) Family History Reviewed.: Yes Medication/Allergy Home Medications: Atorvastatin Calcium [Lipitor 40 mg Tablet] 40 mg PO DAILY 11/23/18 Insulin Glargine/Lixisenatide [Soliqua 100 Unit-33 Mcg/ml Pen] 30 units SQ QAM 06/03/19 Metoprolol Succinate [Toprol Xl 25 mg Tab.sr] 25 mg PO DAILY 06/04/19 Oxycodone HCl/Acetaminophen [Oxycodone-Acetaminophen 10-325] 1 each PO QIDP PRN 06/04/19 Sacubitril/Valsartan [Entresto 49 mg/51 mg Tablet] 1 tab PO Q12 06/04/19 Allergies/Adverse Reactions: No Known Allergies Allergy (Verified 11/22/18 17:34) Review of Systems Constitutional: ABSENT: chills, fever(s), headache(s), weight gain, weight loss Eyes: ABSENT: visual disturbances Ears: ABSENT: hearing changes Cardiovascular: PRESENT: dyspnea on exertion Respiratory: ABSENT: cough, hemoptysis Gastrointestinal: ABSENT: abdominal pain, constipation, diarrhea, hematemesis, hematochezia, nausea, vomiting Genitourinary: ABSENT: dysuria, hematuria Musculoskeletal: ABSENT: joint swelling Integumentary: ABSENT: rash, wounds Neurological: ABSENT: abnormal gait, abnormal speech, confusion, dizziness, focal weakness, syncope Psychiatric: ABSENT: anxiety, depression, homidical ideation, suicidal ideation Endocrine: ABSENT: cold intolerance, heat intolerance, menstrual abnormalities, polydipsia, polyuria Hematologic/Lymphatic: ABSENT: easy bleeding, easy bruising, lymphadenopathy Physical Exam Vital Signs: Temp Pulse Resp BP Pulse Ox 98.2 F 76 18 125/79 97 06/04/19 11:05 06/04/19 14:00 06/04/19 11:05 06/04/19 11:05 06/04/19 11:05 Intake & Output 06/03/19 06/04/19 06/05/19 06:59 06:59 06:59 Intake Total 490 280 Output Total 675 500 Balance -185 -220 Weight 102.6 kg General appearance: PRESENT: no acute distress Head exam: PRESENT: atraumatic, normocephalic Eye exam: PRESENT: PERRLA Ear exam: PRESENT: normal external ear exam Mouth exam: PRESENT: moist, tongue midline Neck exam: PRESENT: full ROM Respiratory exam: PRESENT: crackles Cardiovascular exam: PRESENT: RRR, +S1, +S2 Pulses: PRESENT: normal dorsalis pedis pul, +2 pedal pulses bilateral Vascular exam: PRESENT: normal capillary refill GI/Abdominal exam: PRESENT: normal bowel sounds, soft. ABSENT: distended, guarding, mass, organolmegaly, rebound, tenderness Rectal exam: PRESENT: deferred Extremities exam: PRESENT: pedal edema Neurological exam: PRESENT: alert, CN II-XII grossly intact. ABSENT: motor sensory deficit Psychiatric exam: PRESENT: appropriate affect, normal mood Skin exam: PRESENT: dry, intact, warm Results Laboratory Results: 06/04/19 05:59 06/03/19 14:09 06/03/19 06/03/19 06/04/19 22:23 23:35 04:55 WBC RBC Hgb Hct MCV MCH MCHC RDW Plt Count Seg Neutrophils % Carbonic Acid 1.36 H HCO3/H2CO3 Ratio 19:1 ABG pH 7.39 ABG pCO2 45.1 H ABG pO2 60.5 L ABG HCO3 26.7 H ABG O2 Saturation 90.9 L ABG Base Excess 1.4 FiO2 2L Magnesium Triglycerides Cholesterol LDL Cholesterol Direct VLDL Cholesterol HDL Cholesterol TSH Cancelled 1.69 Free T4 Cancelled 1.54 06/04/19 06/04/19 05:59 05:59 WBC 4.6 RBC 4.91 Hgb 12.9 Hct 40.3 MCV 82 MCH 26.3 L MCHC 32.1 RDW 17.9 H Plt Count 160 Seg Neutrophils % 40.3 L Carbonic Acid HCO3/H2CO3 Ratio ABG pH ABG pCO2 ABG pO2 ABG HCO3 ABG O2 Saturation ABG Base Excess FiO2 Magnesium 1.9 Triglycerides 102 Cholesterol 244.58 H LDL Cholesterol Direct 112 H VLDL Cholesterol 20.0 HDL Cholesterol 89 TSH Free T4 06/03/19 06/03/19 06/03/19 14:09 14:09 22:23 Creatine Kinase CK-MB (CK-2) Cancelled Troponin I 0.032 Cancelled NT-Pro-B Natriuret Pep 57986 H Cancelled 06/03/19 06/03/19 06/03/19 22:23 23:35 23:35 Creatine Kinase Cancelled 222 H CK-MB (CK-2) 5.92 H Troponin I 0.034 NT-Pro-B Natriuret Pep 06/04/19 06/04/19 06/04/19 05:59 05:59 11:42 Creatine Kinase 193 H 164 H CK-MB (CK-2) 4.39 Troponin I 0.033 NT-Pro-B Natriuret Pep 06/04/19 11:42 Creatine Kinase CK-MB (CK-2) 4.14 Troponin I 0.021 NT-Pro-B Natriuret Pep Impressions: Chest X-Ray 06/03/19 11:40 IMPRESSION: CARDIOMEGALY AND VASCULAR CONGESTION WITH BASILAR ATELECTASIS AND BILATERAL PLEURAL EFFUSIONS. 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
[2019-06-04] MEDS: NORMAL SALINE 250 ML with FUROSEMIDE 250 MG IV PRN ×2 (16:57)
[2019-06-04] MEDS: PHARMACY COMMUNICATION ORDER MC SCH (17:00)
--- NOTE | 2019-06-04 17:04 | PDOC PROGRESS REPORT ---
Subjective Progress Note for:: 06/04/19 Subjective:: Patient seen by the bedside, she is diuresing effectively on low-dose furosemide infusion Reason For Visit: ACUTE SYSTOLIC HEART FAILURE,HISTORY OF CHRONIC Physical Exam Vital Signs: Temp Pulse Resp BP Pulse Ox 98.2 F 76 18 125/79 97 06/04/19 11:05 06/04/19 14:00 06/04/19 11:05 06/04/19 11:05 06/04/19 11:05 Intake & Output 06/03/19 06/04/19 06/05/19 06:59 06:59 06:59 Intake Total 490 315 Output Total 675 500 Balance -185 -185 Weight 102.6 kg General appearance: PRESENT: no acute distress Eye exam: PRESENT: PERRLA Respiratory exam: PRESENT: clear to auscultation rodrigue Cardiovascular exam: PRESENT: +S1, +S2 GI/Abdominal exam: PRESENT: soft Extremities exam: PRESENT: pedal edema, other Neurological exam: PRESENT: alert Results Laboratory Results: 06/04/19 05:59 06/03/19 14:09 06/03/19 06/03/19 06/04/19 22:23 23:35 04:55 WBC RBC Hgb Hct MCV MCH MCHC RDW Plt Count Seg Neutrophils % Carbonic Acid 1.36 H HCO3/H2CO3 Ratio 19:1 ABG pH 7.39 ABG pCO2 45.1 H ABG pO2 60.5 L ABG HCO3 26.7 H ABG O2 Saturation 90.9 L ABG Base Excess 1.4 FiO2 2L Magnesium Triglycerides Cholesterol LDL Cholesterol Direct VLDL Cholesterol HDL Cholesterol TSH Cancelled 1.69 Free T4 Cancelled 1.54 06/04/19 06/04/19 05:59 05:59 WBC 4.6 RBC 4.91 Hgb 12.9 Hct 40.3 MCV 82 MCH 26.3 L MCHC 32.1 RDW 17.9 H Plt Count 160 Seg Neutrophils % 40.3 L Carbonic Acid HCO3/H2CO3 Ratio ABG pH ABG pCO2 ABG pO2 ABG HCO3 ABG O2 Saturation ABG Base Excess FiO2 Magnesium 1.9 Triglycerides 102 Cholesterol 244.58 H LDL Cholesterol Direct 112 H VLDL Cholesterol 20.0 HDL Cholesterol 89 TSH Free T4 06/03/19 06/03/19 06/03/19 14:09 14:09 22:23 Creatine Kinase CK-MB (CK-2) Cancelled Troponin I 0.032 Cancelled NT-Pro-B Natriuret Pep 25234 H Cancelled 06/03/19 06/03/19 06/03/19 22:23 23:35 23:35 Creatine Kinase Cancelled 222 H CK-MB (CK-2) 5.92 H Troponin I 0.034 NT-Pro-B Natriuret Pep 06/04/19 06/04/19 06/04/19 05:59 05:59 11:42 Creatine Kinase 193 H 164 H CK-MB (CK-2) 4.39 Troponin I 0.033 NT-Pro-B Natriuret Pep 06/04/19 11:42 Creatine Kinase CK-MB (CK-2) 4.14 Troponin I 0.021 NT-Pro-B Natriuret Pep Impressions: Chest X-Ray 06/03/19 11:40 IMPRESSION: CARDIOMEGALY AND VASCULAR CONGESTION WITH BASILAR ATELECTASIS AND BILATERAL PLEURAL EFFUSIONS. Assessment & Plan - Diagnosis (1) Acute combined systolic and diastolic heart failure Is this a current diagnosis for this admission?: Yes Plan: Continue IV furosemide infusion (2) Nephrotic syndrome Is this a current diagnosis for this admission?: Yes Plan: Continue Lasix infusion (3) T2DM (type 2 diabetes mellitus) Qualifiers: Diabetes mellitus assisted insulin use: with assisted use Diabetes mellitus complication status: with kidney complications Diabetes mellitus complication detail: with nephropathy Qualified Code(s): E11.21 - Type 2 diabetes mellitus with diabetic nephropathy; Z79.4 - pen[facility]entiary (current) use of insulin Is this a current diagnosis for this admission?: Yes - Time Time Spent with patient: 25-34 minutes Level of Care: CU
[2019-06-04] MEDS: OXYCODONE HCL IR 5 MG TABLET PO PRN (19:40)
--- NOTE | 2019-06-04 20:26 | XCELERA REPORT ---
[address] [address] Transthoracic Echocardiogram Report Name: EDUARDA JARRELL Age: 68 yrs Gender: Female : 1950 Patient Status: Inpatient Patient Location: [facility]^A Study Date: 06/04/2019 10:42 AM Height: 68 in Weight: 225 lb BSA: 2.1 m2 Procedure: A two-dimensional transthoracic echocardiogram with color flow and Doppler was performed. Study Quality: Fair. Reason For Study: CHF History: CHF. Ordering Physician: TRAVIS SUBRAMANIAN Performed By: Josephine Herrera Interpretation Summary The left ventricle is mildly to moderately dilated. There is normal left ventricular wall thickness. LV EF is 20% Left ventricular systolic function is severely reduced. Doppler measurements suggest impaired left ventricular relaxation, which is associated with grade I/IV or mild diastolic dysfunction : By tissue doppler. There is severe global hypokinesis of the left ventricle. There is no thrombus. Probably no ASD ,VSD , or PFO seen. The right ventricle is mild to moderately dilated. The right ventricular systolic function is mild to moderately reduced. The right atrium is mildly dilated. The left atrium is moderately dilated. There is no evidence of mitral valve prolapse. There is no vegetation seen on the mitral valve. There is no mitral valve stenosis. There is a moderate amount of mitral regurgitation There is no aortic valvular vegetation. There is no aortic valve stenosis There is no LVOT obstruction. No aortic regurgitation is present. There is no tricuspid stenosis. There is a trace to mild amount of tricuspid regurgitation There is mild to moderate pulmonary hypertension by echo RVSP is 43 to48 mm of Hg , with RA mean of 15 to 20.. MMode/2D Measurements & Calculations RVDd: 4.1 cm LVIDd: 5.0 cm FS: 12.5 % Ao root diam: 2.7 cm IVSd: 1.1 cm LVIDs: 4.4 cm EDV(Teich): LVPWd: 1.1 cm 118.9 ml Ao root area: ESV(Teich): 5.9 cm2 87.0 ml LA dimension: EF(Teich): 26.8 % 4.4 cm LVLd ap4: 9.2 cm SV(MOD-sp4): EDV(MOD-sp4): 46.0 ml 126.0 ml LVLs ap4: 8.5 cm ESV(MOD-sp4): 80.0 ml EF(MOD-sp4): 36.5 % Doppler Measurements & Calculations MV E max marichuy: MV P1/2t max marichuy: Ao V2 max: LV V1 max P.9 cm/sec 106.0 cm/sec 89.5 cm/sec 2.0 mmHg MV A max marichuy: MV P1/2t: 61.9 msec Ao max PG: LV V1 max: 56.3 cm/sec MVA(P1/2t): 3.6 cm2 3.2 mmHg 71.0 cm/sec MV E/A: 1.9 MV dec slope: 502.0 cm/sec2 MV dec time: 0.21 sec PA V2 max: PI end-d marichuy: TR max marichuy: MV P1/2t-pr_phl: 59.2 cm/sec 110.8 cm/sec 262.8 cm/sec 61.9 msec PA max P.4 mmHg TR max P.6 mmHg Left Ventricle The left ventricle is mildly to moderately dilated. There is normal left ventricular wall thickness. LV EF is 20%. Left ventricular systolic function is severely reduced. Doppler measurements suggest impaired left ventricular relaxation, which is associated with grade I/IV or mild diastolic dysfunction. : By tissue doppler. There is severe global hypokinesis of the left ventricle. There is no thrombus. Probably no ASD ,VSD , or PFO seen. Right Ventricle The right ventricle is mild to moderately dilated. The right ventricular systolic function is mild to moderately reduced. Atria The right atrium is mildly dilated. The left atrium is moderately dilated. Mitral Valve There is no evidence of mitral valve prolapse. There is no vegetation seen on the mitral valve. There is no mitral valve stenosis. There is a moderate amount of mitral regurgitation. Aortic Valve There is no aortic valvular vegetation. There is no aortic valve stenosis. There is no LVOT obstruction. No aortic regurgitation is present. Tricuspid Valve There is no tricuspid stenosis. There is a trace to mild amount of tricuspid regurgitation. RVSP is 43 to48 mm of Hg , with RA mean of 15 to 20.. There is mild to moderate pulmonary hypertension by echo. Pulmonic Valve There is no pulmonic valvular stenosis. There is a trace amount of pulmonic regurgitation. Great Vessels The aortic root is normal size. The inferior vena cava appeared dilated and decreased < 50% with respiration (RAP 15-20 mmHg). : TRAVIS SBURAMANIAN, Radha
[2019-06-04] MEDS ORDERED: INSULIN GLARGINE,HUM.REC.ANLOG 1,000 UNIT/10 ML VIAL SUBCUT SCH (22:00)
[2019-06-04] MEDS ORDERED: INSULIN GLARGINE,HUM.REC.ANLOG 1,000 UNIT/10 ML VIAL (PYX) SUBCUT ONE ×2 (22:00→22:30)
[2019-06-05] MEDS: OXYCODONE-ACETAMINOPHEN 5-325 MG TABLET PO PRN (01:52)
[2019-06-05 05:10] LABS: ABSOLUTE EOSINOPHILS # (AUTO) 0.2 10^3/uL (0.0-0.6); ABSOLUTE LYMPHOCYTES (AUTO) 2.3 10^3/uL (0.5-4.7); ABSOLUTE MONOCYTES (AUTO) 0.8 10^3/uL (0.1-1.4); ABSOLUTE NEUT (AUTO) 1.9 10^3/uL (1.7-8.2); BASOPHILS % (AUTO) 0.5 % (0-2); EOSINOPHILS % (AUTO) 2.9 % (0-6); HEMATOCRIT 41.4 % (36.0-47.0); HEMOGLOBIN 13.2 g/dL (12.0-15.5); LYMPHOCYTES % (AUTO) 45.1 % (13-45); MEAN CORPUSCULAR HEMOGLOBIN 26.2 pg (27.0-33.4); MEAN CORPUSCULAR VOLUME 82 fl (80-97); MONOCYTES % (AUTO) 14.8 % (3-13); PLATELET COUNT 156 10^3/uL (150-450); RED BLOOD COUNT 5.06 10^6/uL (3.72-5.28); RED CELL DISTRIBUTION WIDTH 18.1 % (11.5-14.0); SEGMENTED NEUTROPHILS % (AUTO) 36.7 % (42-78); TOTAL CELLS COUNTED % (AUTO) 100 %; WHITE BLOOD COUNT 5.2 10^3/uL (4.0-10.5)
[2019-06-05] MEDS: HEPARIN SOD (PORCINE) 5,000 UNIT/ML 1 ML VIAL SUBCUT SCH ×3 (05:11→22:31)
[2019-06-05] MEDS: INSULIN LISPRO 100 UNIT/ML 3 ML VIAL SUBCUT SCH ×4 (08:00→22:28)
[2019-06-05] MEDS: ATORVASTATIN CALCIUM 40 MG TABLET PO SCH (10:06)
[2019-06-05] MEDS: SPIRONOLACTONE 25 MG TABLET PO SCH (10:06)
[2019-06-05] MEDS: METOPROLOL SUCCINATE 25 MG TAB.SR.24H PO SCH (10:06)
[2019-06-05] MEDS: SACUBITRIL/VALSARTAN 49 MG/51 MG TABLET PO SCH ×2 (10:06→22:28)
--- NOTE | 2019-06-05 18:40 | PDOC CONSULTATION ---
Consultation-Blank Consultation: Current Medications Generic Name Dose Route Start Last Admin Trade Name Marcia PRN Reason Stop Dose Admin Acetaminophen 650 mg 06/04/19 02:13 06/04/19 02:25 Tylenol 325 Mg Tablet PO 07/04/19 02:12 650 mg Q6HP PRN Administration PAIN Atorvastatin Calcium 40 mg 06/04/19 14:00 06/05/19 10:06 Lipitor 40 Mg Tablet PO 07/04/19 13:59 40 mg DAILY CRISTELA Administration Dextrose 12.5 gm 06/03/19 20:53 Dextrose Inj 50% Syringe (25 Gm/50 Ml) IV 07/03/19 20:52 PRN PRN FOR BG 50-69 IN ALERT PATIENT Protocol Dextrose 25 gm 06/03/19 20:53 Dextrose Inj 50% Syringe (25 Gm/50 Ml) IV 07/03/19 20:52 PRN PRN PER PROTOCOL Protocol Glucagon 1 mg 06/03/19 20:53 Glucagen Inj 1 Mg Vial IM 07/03/19 20:52 PRN PRN Evaluate for BG < 70 Protocol Glucose 15 gm 06/03/19 20:53 Glutose 40% Gel 15 Gm Tube PO 07/03/19 20:52 PRN PRN FOR BG 50-69 IN ALERT PATIENT Protocol Glucose 30 gm 06/03/19 20:53 Glutose 40% Gel 15 Gm Tube PO 07/03/19 20:52 PRN PRN FOR BG < 50 IN ALERT PATIENT Protocol Heparin Sodium (Porcine) 5,000 unit 06/03/19 22:00 06/05/19 22:31 Heparin Inj 5,000 Units/Ml 1 Ml Vial SUBCUT 07/03/19 21:59 5,000 unit Q8 CRISTELA Administration Furosemide 250 mg/ Sodium 250 mls @ 2 mls/hr 06/03/19 21:02 06/05/19 19:00 Chloride IV 07/03/19 21:01 2 mg/hr CONTINUOUS PRN 2 mls/hr THIS MED IS NOT "PRN" Administration 2 MG/HR Insulin Glargine 50 unit 06/05/19 22:00 06/05/19 22:29 Lantus Insulin 100 Unit/1 Ml 10 Ml SUBCUT 07/05/19 21:59 50 unit QHS CRISTELA Administration Insulin Human Lispro 0 - 12 unit 06/03/19 22:00 06/05/19 22:28 Humalog Insulin 100 Unit/1 Ml 3 Ml Vial SUBCUT 07/03/19 21:59 6 unit ACHS CRISTELA Administration Protocol Metoprolol Succinate 25 mg 06/04/19 14:00 06/05/19 10:06 Toprol Xl 25 Mg Tab.Sr PO 07/04/19 13:59 25 mg DAILY CRISTELA Administration Oxycodone HCl 5 mg 06/04/19 14:05 06/05/19 19:35 Oxy-Ir 5 Mg Tablet PO 06/11/19 14:04 5 mg Q6HP PRN Administration PAIN Oxycodone/Acetaminophen 1 tab 06/04/19 14:04 06/05/19 01:52 Percocet 5-325 Mg Tablet PO 06/11/19 14:03 1 tab Q6HP PRN Administration PAIN Patient Own Medication 30 units 06/04/19 13:45 Insulin Glargine/Lixisenatide [Soliqua 100 Unit-33 Mcg/Ml Pen] SQ 07/04/19 13:44 QAM [facility] Pharmacy Profile Note 1 each 06/04/19 18:00 06/05/19 20:15 Medication Communication Order 07/04/19 17:59 Not Given QPM [facility] Sacubitril/Valsartan 1 tab 06/04/19 14:30 06/05/19 22:28 Entresto 49 Mg/51 Mg Tablet PO 07/04/19 14:29 1 tab Q12 CRISTELA Administration Sodium Chloride 2.5 ml 06/03/19 22:00 06/05/19 22:30 Saline Flush 2.5 Ml Monoject Prefil Syrin IV 07/03/19 21:59 2.5 ml Q8 CRISTELA Administration Spironolactone 25 mg 06/04/19 14:00 06/05/19 10:06 Aldactone 25 Mg Tablet PO 07/04/19 13:59 25 mg DAILY CRISTELA Administration Discontinued Medications Generic Name Dose Route Start Last Admin Trade Name Freq PRN Reason Stop Dose Admin Influenza Virus Vaccine Quadrival 0.5 ml 06/04/19 00:31 Flulaval Quad 2019- Vac 0.5 Ml Syr IM 06/04/19 00:32 .ONCE ONE Insulin Glargine 50 unit 06/04/19 22:00 06/04/19 22:23 Lantus (Pyxis) Insulin 100 Unit/1 Ml 10 Ml SUBCUT 06/04/19 22:01 50 unit NOW ONE Administration Insulin Glargine Confirm 06/04/19 22:30 06/04/19 22:37 Lantus (Pyxis) Insulin 100 Unit/1 Ml 10 Ml Administered 06/04/19 22:31 Not Given Dose 1 unit SUBCUT .STK-MED ONE PHYSICAL EXAMINATION: The patient is morbidly obese. She appears to be chronically ill. Selected Entries 06/05/19 11:28 Temperature 98.3 F Temperature Oral Source Pulse Rate 67 Respiratory 18 Rate Blood Pressure 128/71 H Blood Pressure 90 Mean BP Location Right Arm BP Position Supine O2 Sat by Pulse 97 Oximetry Oxygen Flow 2.00 Rate Oxygen Delivery Nasal Cannula Method HEAD: Is atraumatic normocephalic. EYES: Pupils equal round regular reactive light accommodation. Extraocular movements are normal there is no conjunctival pallor. There is no scleral icterus. EARS: Tympanic membranes are intact. External auditory canals are clear. NOSE: There is no deviated nasal septum. There is no inflammation of the nasal mucous membrane. MOUTH: Mucous membranes of mouth are moist. The patient's oral cavity is modified Mallampati classification class IV. There is no bleeding from the gums. THROAT: There is no exudates in the throat. There is no redness of the oropharynx. SKIN: There is no skin rashes or skin lesions. There is no particular ecchymosis. NECK: Is supple. There is no definite JVD. Carotids are equal there is no bruit. There is no lymphadenopathy. There is no accessory muscle respiration use. There is no goiter. Trachea central. LUNGS: There is diminished air entry prolonged expiration without any rhonchi rales or wheezing. On percussion there is hyperresonance throughout. On palpation there is no chest wall tenderness. HEART: S1-S2 is heard. There is no S3 gallop. There is no S4 gallop. There is murmur of mitral regurgitation and tricuspid regurgitation present. There is no rub. ABDOMEN: Is obese there is no paraspinal megaly. Bowel sounds are well heard. There is no tender areas of masses. EXTREMITIES: Both femoral pulses diminished. Leg pulses are diminished. There is no femoral bruits. There is 2- pedal edema. There is no DVT or cellulitis. There is no calf tenderness. 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 PSYCHIATRIC: The patient judgment insight seems to be intact although the patient's is slightly of slow mentation. Since admission the patient's total intake is been 1525 mL. Output is 2250 mL. Labs- Entire Visit 06/03/19 06/03/19 06/03/19 13:44 13:44 14:09 WBC 6.0 RBC 5.44 H Hgb 14.7 Hct 45.1 MCV 83 MCH 27.1 MCHC 32.6 RDW 18.2 H Plt Count 189 Lymph % (Auto) 46.3 H [place] % (Auto) 7.8 Eos % (Auto) 3.5 Baso % (Auto) 0.8 Absolute Neuts (auto) 2.5 Absolute Lymphs (auto) 2.8 Absolute Monos (auto) 0.5 Absolute Eos (auto) 0.2 Absolute Basos (auto) 0.1 Seg Neutrophils % 41.6 L PT INR INR (Anticoag Therapy) APTT Carbonic Acid HCO3/H2CO3 Ratio ABG pH ABG pCO2 ABG pO2 ABG HCO3 ABG Total CO2 ABG O2 Saturation ABG Base Excess FiO2 Sodium Potassium Chloride Carbon Dioxide Anion Gap BUN Creatinine Est GFR ( Amer) Est GFR (MDRD) Non-Af Glucose POC Glucose Hemoglobin A1c % Calcium Magnesium Total Bilirubin Direct Bilirubin Neonat Total Bilirubin Neonat Direct Bilirubin Neonat Indirect Bili AST ALT Alkaline Phosphatase Creatine Kinase CK-MB (CK-2) Troponin I NT-Pro-B Natriuret Pep Total Protein Albumin Triglycerides Cholesterol LDL Cholesterol Direct VLDL Cholesterol HDL Cholesterol Lipase TSH Free T4 Urine Color YELLOW Urine Appearance CLEAR Urine pH 5.0 Ur Specific [place] 1.018 Urine Protein >=500 H Urine Glucose (UA) 50 H Urine Ketones TRACE H Urine Blood SMALL H Urine Nitrite (Reflex) NEGATIVE Urine Bilirubin NEGATIVE Urine Urobilinogen NEGATIVE Leukocyte Esterase Rfl NEGATIVE Urine RBC (Auto) 6 U Hyaline Cast (Auto) 4 Urine WBC (Reflex) 3 Squamous Epi Cells Auto 5 Urine Mucus (Auto) RARE Urine Creatinine 94.4 Protein/Creatinin Ratio 10.0 H Urine Total Protein 944.5 H Urine Ascorbic Acid NEGATIVE 06/03/19 06/03/19 06/03/19 14:09 14:09 14:09 WBC RBC Hgb Hct MCV MCH MCHC RDW Plt Count Lymph % (Auto) [place] % (Auto) Eos % (Auto) Baso % (Auto) Absolute Neuts (auto) Absolute Lymphs (auto) Absolute Monos (auto) Absolute Eos (auto) Absolute Basos (auto) Seg Neutrophils % PT INR INR (Anticoag Therapy) APTT Carbonic Acid HCO3/H2CO3 Ratio ABG pH ABG pCO2 ABG pO2 ABG HCO3 ABG Total CO2 ABG O2 Saturation ABG Base Excess FiO2 Sodium 141.9 Potassium 4.0 Chloride 106 Carbon Dioxide 29 Anion Gap 7 BUN 18 Creatinine 1.16 Est GFR ( Amer) 57 L Est GFR (MDRD) Non-Af 47 L Glucose 142 H POC Glucose Hemoglobin A1c % Calcium 9.2 Magnesium Total Bilirubin 1.0 Direct Bilirubin 0.2 Neonat Total Bilirubin Not Reportable Neonat Direct Bilirubin Not Reportable Neonat Indirect Bili Not Reportable AST 43 H ALT 93 H Alkaline Phosphatase 187 H Creatine Kinase CK-MB (CK-2) Troponin I 0.032 NT-Pro-B Natriuret Pep 37670 H Total Protein 6.9 Albumin 3.5 Triglycerides Cholesterol LDL Cholesterol Direct VLDL Cholesterol HDL Cholesterol Lipase 18.2 L TSH Free T4 Urine Color Urine Appearance Urine pH Ur Specific [place] Urine Protein Urine Glucose (UA) Urine Ketones Urine Blood Urine Nitrite (Reflex) Urine Bilirubin Urine Urobilinogen Leukocyte Esterase Rfl Urine RBC (Auto) U Hyaline Cast (Auto) Urine WBC (Reflex) Squamous Epi Cells Auto Urine Mucus (Auto) Urine Creatinine Protein/Creatinin Ratio Urine Total Protein Urine Ascorbic Acid 06/03/19 06/03/19 06/03/19 22:23 22:23 22:23 WBC RBC Hgb Hct MCV MCH MCHC RDW Plt Count Lymph % (Auto) [place] % (Auto) Eos % (Auto) Baso % (Auto) Absolute Neuts (auto) Absolute Lymphs (auto) Absolute Monos (auto) Absolute Eos (auto) Absolute Basos (auto) Seg Neutrophils % PT Cancelled INR Cancelled INR (Anticoag Therapy) Cancelled APTT Cancelled Carbonic Acid HCO3/H2CO3 Ratio ABG pH ABG pCO2 ABG pO2 ABG HCO3 ABG Total CO2 ABG O2 Saturation ABG Base Excess FiO2 Sodium Potassium Chloride Carbon Dioxide Anion Gap BUN Creatinine Est GFR ( Amer) Est GFR (MDRD) Non-Af Glucose POC Glucose Hemoglobin A1c % Calcium Magnesium Total Bilirubin Direct Bilirubin Neonat Total Bilirubin Neonat Direct Bilirubin Neonat Indirect Bili AST ALT Alkaline Phosphatase Creatine Kinase CK-MB (CK-2) Cancelled Troponin I Cancelled NT-Pro-B Natriuret Pep Cancelled Total Protein Albumin Triglycerides Cholesterol LDL Cholesterol Direct VLDL Cholesterol HDL Cholesterol Lipase TSH Cancelled Free T4 Cancelled Urine Color Urine Appearance Urine pH Ur Specific [place] Urine Protein Urine Glucose (UA) Urine Ketones Urine Blood Urine Nitrite (Reflex) Urine Bilirubin Urine Urobilinogen Leukocyte Esterase Rfl Urine RBC (Auto) U Hyaline Cast (Auto) Urine WBC (Reflex) Squamous Epi Cells Auto Urine Mucus (Auto) Urine Creatinine Protein/Creatinin Ratio Urine Total Protein Urine Ascorbic Acid 06/03/19 06/03/19 06/03/19 22:23 23:35 23:35 WBC RBC Hgb Hct MCV MCH MCHC RDW Plt Count Lymph % (Auto) [place] % (Auto) Eos % (Auto) Baso % (Auto) Absolute Neuts (auto) Absolute Lymphs (auto) Absolute Monos (auto) Absolute Eos (auto) Absolute Basos (auto) Seg Neutrophils % PT 13.3 INR 1.01 INR (Anticoag Therapy) APTT 26.2 Carbonic Acid HCO3/H2CO3 Ratio ABG pH ABG pCO2 ABG pO2 ABG HCO3 ABG Total CO2 ABG O2 Saturation ABG Base Excess FiO2 Sodium Potassium Chloride Carbon Dioxide Anion Gap BUN Creatinine Est GFR ( Amer) Est GFR (MDRD) Non-Af Glucose POC Glucose Hemoglobin A1c % Calcium Magnesium Total Bilirubin Direct Bilirubin Neonat Total Bilirubin Neonat Direct Bilirubin Neonat Indirect Bili AST ALT Alkaline Phosphatase Creatine Kinase Cancelled CK-MB (CK-2) 5.92 H Troponin I 0.034 NT-Pro-B Natriuret Pep Total Protein Albumin Triglycerides Cholesterol LDL Cholesterol Direct VLDL Cholesterol HDL Cholesterol Lipase TSH Free T4 Urine Color Urine Appearance Urine pH Ur Specific [place] Urine Protein Urine Glucose (UA) Urine Ketones Urine Blood Urine Nitrite (Reflex) Urine Bilirubin Urine Urobilinogen Leukocyte Esterase Rfl Urine RBC (Auto) U Hyaline Cast (Auto) Urine WBC (Reflex) Squamous Epi Cells Auto Urine Mucus (Auto) Urine Creatinine Protein/Creatinin Ratio Urine Total Protein Urine Ascorbic Acid 06/03/19 06/03/19 06/03/19 23:35 23:35 23:35 WBC RBC Hgb Hct MCV MCH MCHC RDW Plt Count Lymph % (Auto) [place] % (Auto) Eos % (Auto) Baso % (Auto) Absolute Neuts (auto) Absolute Lymphs (auto) Absolute Monos (auto) Absolute Eos (auto) Absolute Basos (auto) Seg Neutrophils % PT INR INR (Anticoag Therapy) APTT Carbonic Acid HCO3/H2CO3 Ratio ABG pH ABG pCO2 ABG pO2 ABG HCO3 ABG Total CO2 ABG O2 Saturation ABG Base Excess FiO2 Sodium Potassium Chloride Carbon Dioxide Anion Gap BUN Creatinine Est GFR ( Amer) Est GFR (MDRD) Non-Af Glucose POC Glucose 144 H Hemoglobin A1c % Calcium Magnesium Total Bilirubin Direct Bilirubin Neonat Total Bilirubin Neonat Direct Bilirubin Neonat Indirect Bili AST ALT Alkaline Phosphatase Creatine Kinase 222 H CK-MB (CK-2) Troponin I NT-Pro-B Natriuret Pep Total Protein Albumin Triglycerides Cholesterol LDL Cholesterol Direct VLDL Cholesterol HDL Cholesterol Lipase TSH 1.69 Free T4 1.54 Urine Color Urine Appearance Urine pH Ur Specific [place] Urine Protein Urine Glucose (UA) Urine Ketones Urine Blood Urine Nitrite (Reflex) Urine Bilirubin Urine Urobilinogen Leukocyte Esterase Rfl Urine RBC (Auto) U Hyaline Cast (Auto) Urine WBC (Reflex) Squamous Epi Cells Auto Urine Mucus (Auto) Urine Creatinine Protein/Creatinin Ratio Urine Total Protein Urine Ascorbic Acid 06/04/19 06/04/19 06/04/19 04:55 05:59 05:59 WBC RBC Hgb Hct MCV MCH MCHC RDW Plt Count Lymph % (Auto) [place] % (Auto) Eos % (Auto) Baso % (Auto) Absolute Neuts (auto) Absolute Lymphs (auto) Absolute Monos (auto) Absolute Eos (auto) Absolute Basos (auto) Seg Neutrophils % PT INR INR (Anticoag Therapy) APTT Carbonic Acid 1.36 H HCO3/H2CO3 Ratio 19:1 ABG pH 7.39 ABG pCO2 45.1 H ABG pO2 60.5 L ABG HCO3 26.7 H ABG Total CO2 28.1 H ABG O2 Saturation 90.9 L ABG Base Excess 1.4 FiO2 2L Sodium Potassium Chloride Carbon Dioxide Anion Gap BUN Creatinine Est GFR ( Amer) Est GFR (MDRD) Non-Af Glucose POC Glucose Hemoglobin A1c % Calcium Magnesium Total Bilirubin Direct Bilirubin Neonat Total Bilirubin Neonat Direct Bilirubin Neonat Indirect Bili AST ALT Alkaline Phosphatase Creatine Kinase 193 H CK-MB (CK-2) 4.39 Troponin I 0.033 NT-Pro-B Natriuret Pep Total Protein Albumin Triglycerides Cholesterol LDL Cholesterol Direct VLDL Cholesterol HDL Cholesterol Lipase TSH Free T4 Urine Color Urine Appearance Urine pH Ur Specific [place] Urine Protein Urine Glucose (UA) Urine Ketones Urine Blood Urine Nitrite (Reflex) Urine Bilirubin Urine Urobilinogen Leukocyte Esterase Rfl Urine RBC (Auto) U Hyaline Cast (Auto) Urine WBC (Reflex) Squamous Epi Cells Auto Urine Mucus (Auto) Urine Creatinine Protein/Creatinin Ratio Urine Total Protein Urine Ascorbic Acid 06/04/19 06/04/19 06/04/19 05:59 05:59 05:59 WBC 4.6 RBC 4.91 Hgb 12.9 Hct 40.3 MCV 82 MCH 26.3 L MCHC 32.1 RDW 17.9 H Plt Count 160 Lymph % (Auto) 47.2 H [place] % (Auto) 8.4 Eos % (Auto) 3.4 Baso % (Auto) 0.7 Absolute Neuts (auto) 1.8 Absolute Lymphs (auto) 2.2 Absolute Monos (auto) 0.4 Absolute Eos (auto) 0.2 Absolute Basos (auto) 0.0 Seg Neutrophils % 40.3 L PT INR INR (Anticoag Therapy) APTT Carbonic Acid HCO3/H2CO3 Ratio ABG pH ABG pCO2 ABG pO2 ABG HCO3 ABG Total CO2 ABG O2 Saturation ABG Base Excess FiO2 Sodium Potassium Chloride Carbon Dioxide Anion Gap BUN Creatinine Est GFR ( Amer) Est GFR (MDRD) Non-Af Glucose POC Glucose Hemoglobin A1c % 10.3 H Calcium Magnesium 1.9 Total Bilirubin Direct Bilirubin Neonat Total Bilirubin Neonat Direct Bilirubin Neonat Indirect Bili AST ALT Alkaline Phosphatase Creatine Kinase CK-MB (CK-2) Troponin I NT-Pro-B Natriuret Pep Total Protein Albumin Triglycerides 102 Cholesterol 244.58 H LDL Cholesterol Direct 112 H VLDL Cholesterol 20.0 HDL Cholesterol 89 Lipase TSH Free T4 Urine Color Urine Appearance Urine pH Ur Specific [place] Urine Protein Urine Glucose (UA) Urine Ketones Urine Blood Urine Nitrite (Reflex) Urine Bilirubin Urine Urobilinogen Leukocyte Esterase Rfl Urine RBC (Auto) U Hyaline Cast (Auto) Urine WBC (Reflex) Squamous Epi Cells Auto Urine Mucus (Auto) Urine Creatinine Protein/Creatinin Ratio Urine Total Protein Urine Ascorbic Acid 06/04/19 06/04/19 06/04/19 07:45 11:06 11:42 WBC RBC Hgb Hct MCV MCH MCHC RDW Plt Count Lymph % (Auto) [place] % (Auto) Eos % (Auto) Baso % (Auto) Absolute Neuts (auto) Absolute Lymphs (auto) Absolute Monos (auto) Absolute Eos (auto) Absolute Basos (auto) Seg Neutrophils % PT INR INR (Anticoag Therapy) APTT Carbonic Acid HCO3/H2CO3 Ratio ABG pH ABG pCO2 ABG pO2 ABG HCO3 ABG Total CO2 ABG O2 Saturation ABG Base Excess FiO2 Sodium Potassium Chloride Carbon Dioxide Anion Gap BUN Creatinine Est GFR ( Amer) Est GFR (MDRD) Non-Af Glucose POC Glucose 167 H 199 H Hemoglobin A1c % Calcium Magnesium Total Bilirubin Direct Bilirubin Neonat Total Bilirubin Neonat Direct Bilirubin Neonat Indirect Bili AST ALT Alkaline Phosphatase Creatine Kinase 164 H CK-MB (CK-2) Troponin I NT-Pro-B Natriuret Pep Total Protein Albumin Triglycerides Cholesterol LDL Cholesterol Direct VLDL Cholesterol HDL Cholesterol Lipase TSH Free T4 Urine Color Urine Appearance Urine pH Ur Specific [place] Urine Protein Urine Glucose (UA) Urine Ketones Urine Blood Urine Nitrite (Reflex) Urine Bilirubin Urine Urobilinogen Leukocyte Esterase Rfl Urine RBC (Auto) U Hyaline Cast (Auto) Urine WBC (Reflex) Squamous Epi Cells Auto Urine Mucus (Auto) Urine Creatinine Protein/Creatinin Ratio Urine Total Protein Urine Ascorbic Acid 06/04/19 06/04/19 06/04/19 11:42 16:43 21:41 WBC RBC Hgb Hct MCV MCH MCHC RDW Plt Count Lymph % (Auto) [place] % (Auto) Eos % (Auto) Baso % (Auto) Absolute Neuts (auto) Absolute Lymphs (auto) Absolute Monos (auto) Absolute Eos (auto) Absolute Basos (auto) Seg Neutrophils % PT INR INR (Anticoag Therapy) APTT Carbonic Acid HCO3/H2CO3 Ratio ABG pH ABG pCO2 ABG pO2 ABG HCO3 ABG Total CO2 ABG O2 Saturation ABG Base Excess FiO2 Sodium Potassium Chloride Carbon Dioxide Anion Gap BUN Creatinine Est GFR ( Amer) Est GFR (MDRD) Non-Af Glucose POC Glucose 320 H 306 H Hemoglobin A1c % Calcium Magnesium Total Bilirubin Direct Bilirubin Neonat Total Bilirubin Neonat Direct Bilirubin Neonat Indirect Bili AST ALT Alkaline Phosphatase Creatine Kinase CK-MB (CK-2) 4.14 Troponin I 0.021 NT-Pro-B Natriuret Pep Total Protein Albumin Triglycerides Cholesterol LDL Cholesterol Direct VLDL Cholesterol HDL Cholesterol Lipase TSH Free T4 Urine Color Urine Appearance Urine pH Ur Specific [place] Urine Protein Urine Glucose (UA) Urine Ketones Urine Blood Urine Nitrite (Reflex) Urine Bilirubin Urine Urobilinogen Leukocyte Esterase Rfl Urine RBC (Auto) U Hyaline Cast (Auto) Urine WBC (Reflex) Squamous Epi Cells Auto Urine Mucus (Auto) Urine Creatinine Protein/Creatinin Ratio Urine Total Protein Urine Ascorbic Acid 06/05/19 06/05/19 06/05/19 00:26 04:13 07:59 WBC 5.2 RBC 5.06 Hgb 13.2 Hct 41.4 MCV 82 MCH 26.2 L MCHC 32.0 RDW 18.1 H Plt Count 156 Lymph % (Auto) 45.1 H [place] % (Auto) 14.8 H Eos % (Auto) 2.9 Baso % (Auto) 0.5 Absolute Neuts (auto) 1.9 Absolute Lymphs (auto) 2.3 Absolute Monos (auto) 0.8 Absolute Eos (auto) 0.2 Absolute Basos (auto) 0.0 Seg Neutrophils % 36.7 L PT INR INR (Anticoag Therapy) APTT Carbonic Acid HCO3/H2CO3 Ratio ABG pH ABG pCO2 ABG pO2 ABG HCO3 ABG Total CO2 ABG O2 Saturation ABG Base Excess FiO2 Sodium Potassium Chloride Carbon Dioxide Anion Gap BUN Creatinine Est GFR ( Amer) Est GFR (MDRD) Non-Af Glucose POC Glucose 177 H 76 Hemoglobin A1c % Calcium Magnesium Total Bilirubin Direct Bilirubin Neonat Total Bilirubin Neonat Direct Bilirubin Neonat Indirect Bili AST ALT Alkaline Phosphatase Creatine Kinase CK-MB (CK-2) Troponin I NT-Pro-B Natriuret Pep Total Protein Albumin Triglycerides Cholesterol LDL Cholesterol Direct VLDL Cholesterol HDL Cholesterol Lipase TSH Free T4 Urine Color Urine Appearance Urine pH Ur Specific [place] Urine Protein Urine Glucose (UA) Urine Ketones Urine Blood Urine Nitrite (Reflex) Urine Bilirubin Urine Urobilinogen Leukocyte Esterase Rfl Urine RBC (Auto) U Hyaline Cast (Auto) Urine WBC (Reflex) Squamous Epi Cells Auto Urine Mucus (Auto) Urine Creatinine Protein/Creatinin Ratio Urine Total Protein Urine Ascorbic Acid 06/05/19 06/05/19 06/05/19 11:29 16:07 21:06 WBC RBC Hgb Hct MCV MCH MCHC RDW Plt Count Lymph % (Auto) [place] % (Auto) Eos % (Auto) Baso % (Auto) Absolute Neuts (auto) Absolute Lymphs (auto) Absolute Monos (auto) Absolute Eos (auto) Absolute Basos (auto) Seg Neutrophils % PT INR INR (Anticoag Therapy) APTT Carbonic Acid HCO3/H2CO3 Ratio ABG pH ABG pCO2 ABG pO2 ABG HCO3 ABG Total CO2 ABG O2 Saturation ABG Base Excess FiO2 Sodium Potassium Chloride Carbon Dioxide Anion Gap BUN Creatinine Est GFR ( Amer) Est GFR (MDRD) Non-Af Glucose POC Glucose 188 H 215 H 265 H Hemoglobin A1c % Calcium Magnesium Total Bilirubin Direct Bilirubin Neonat Total Bilirubin Neonat Direct Bilirubin Neonat Indirect Bili AST ALT Alkaline Phosphatase Creatine Kinase CK-MB (CK-2) Troponin I NT-Pro-B Natriuret Pep Total Protein Albumin Triglycerides Cholesterol LDL Cholesterol Direct VLDL Cholesterol HDL Cholesterol Lipase TSH Free T4 Urine Color Urine Appearance Urine pH Ur Specific [place] Urine Protein Urine Glucose (UA) Urine Ketones Urine Blood Urine Nitrite (Reflex) Urine Bilirubin Urine Urobilinogen Leukocyte Esterase Rfl Urine RBC (Auto) U Hyaline Cast (Auto) Urine WBC (Reflex) Squamous Epi Cells Auto Urine Mucus (Auto) Urine Creatinine Protein/Creatinin Ratio Urine Total Protein Urine Ascorbic Acid 06/05/19 06/05/19 21:40 21:40 WBC 4.8 RBC 4.89 Hgb 12.8 Hct 40.2 MCV 82 MCH 26.2 L MCHC 31.9 L RDW 18.0 H Plt Count 141 L Lymph % (Auto) [place] % (Auto) Eos % (Auto) Baso % (Auto) Absolute Neuts (auto) Absolute Lymphs (auto) Absolute Monos (auto) Absolute Eos (auto) Absolute Basos (auto) Seg Neutrophils % PT INR INR (Anticoag Therapy) APTT Carbonic Acid HCO3/H2CO3 Ratio ABG pH ABG pCO2 ABG pO2 ABG HCO3 ABG Total CO2 ABG O2 Saturation ABG Base Excess FiO2 Sodium 133.3 L Potassium 4.3 Chloride 102 Carbon Dioxide 29 Anion Gap 2 L BUN 23 H Creatinine 1.49 H Est GFR ( Amer) 42 L Est GFR (MDRD) Non-Af 35 L Glucose 296 H POC Glucose Hemoglobin A1c % Calcium 8.4 Magnesium Total Bilirubin Direct Bilirubin Neonat Total Bilirubin Neonat Direct Bilirubin Neonat Indirect Bili AST ALT Alkaline Phosphatase Creatine Kinase CK-MB (CK-2) Troponin I NT-Pro-B Natriuret Pep Total Protein Albumin Triglycerides Cholesterol LDL Cholesterol Direct VLDL Cholesterol HDL Cholesterol Lipase TSH Free T4 Urine Color Urine Appearance Urine pH Ur Specific [place] Urine Protein Urine Glucose (UA) Urine Ketones Urine Blood Urine Nitrite (Reflex) Urine Bilirubin Urine Urobilinogen Leukocyte Esterase Rfl Urine RBC (Auto) U Hyaline Cast (Auto) Urine WBC (Reflex) Squamous Epi Cells Auto Urine Mucus (Auto) Urine Creatinine Protein/Creatinin Ratio Urine Total Protein Urine Ascorbic Acid Chest X-Ray 06/03/19 11:40 IMPRESSION: CARDIOMEGALY AND VASCULAR CONGESTION WITH BASILAR ATELECTASIS AND BILATERAL PLEURAL EFFUSIONS. IMPRESSION/RECOMMENDATION: 1. Acute on chronic combined systolic and diastolic heart failure. Continue Lasix drip will try to increase the Entresto. Continue Aldactone and Toprol-XL. 2.Dilated cardiomyopathy with severely reduced LV ejection fraction of 25% 30% by echo of November 2018. Earlier in August her LV ejection fraction was severely reduced at 25%. Patient has been referred for AICD placement.. Continue Toprol-XL and we will see if we can increase Entresto. 3. Hypertension: Blood pressure well controlled. 4. Diabetes mellitus. 5. Obstructive sleep apnea by history. Continue CPAP at night 6. Medication noncompliance. Medications reviewed. Medication regimen and management plan discussed with Dr. Fischer. Medical decision making is of high complexity. 50% of the time spent on direct patient care. Will follow
[2019-06-05] MEDS: NORMAL SALINE 250 ML with FUROSEMIDE 250 MG IV PRN ×2 (19:00)
[2019-06-05] MEDS: OXYCODONE HCL IR 5 MG TABLET PO PRN (19:35)
[2019-06-05] MEDS: PHARMACY COMMUNICATION ORDER MC SCH (20:15)
--- NOTE | 2019-06-05 20:48 | PDOC PROGRESS REPORT ---
Subjective Progress Note for:: 06/05/19 Subjective:: Patient seen by the bedside, consultation was obtained from cardiology. Reason For Visit: ACUTE SYSTOLIC HEART FAILURE,HISTORY OF CHRONIC Physical Exam Vital Signs: Temp Pulse Resp BP Pulse Ox 98.0 F 78 18 147/87 H 97 06/05/19 15:19 06/05/19 19:00 06/05/19 15:19 06/05/19 15:19 06/05/19 15:19 Intake & Output 06/04/19 06/05/19 06/06/19 06:59 06:59 06:59 Intake Total 490 1035 1132 Output Total 675 1575 1025 Balance -185 -540 107 Weight 102.6 kg 102.8 kg General appearance: PRESENT: no acute distress Eye exam: PRESENT: PERRLA Respiratory exam: PRESENT: clear to auscultation rodrigue Cardiovascular exam: PRESENT: +S1, +S2 GI/Abdominal exam: PRESENT: soft Neurological exam: PRESENT: alert, CN II-XII grossly intact Results Laboratory Results: 06/05/19 04:13 06/03/19 14:09 06/05/19 04:13 WBC 5.2 RBC 5.06 Hgb 13.2 Hct 41.4 MCV 82 MCH 26.2 L MCHC 32.0 RDW 18.1 H Plt Count 156 Seg Neutrophils % 36.7 L 06/03/19 06/03/19 06/03/19 14:09 14:09 22:23 Creatine Kinase CK-MB (CK-2) Cancelled Troponin I 0.032 Cancelled NT-Pro-B Natriuret Pep 71914 H Cancelled 06/03/19 06/03/19 06/03/19 22:23 23:35 23:35 Creatine Kinase Cancelled 222 H CK-MB (CK-2) 5.92 H Troponin I 0.034 NT-Pro-B Natriuret Pep 06/04/19 06/04/19 06/04/19 05:59 05:59 11:42 Creatine Kinase 193 H 164 H CK-MB (CK-2) 4.39 Troponin I 0.033 NT-Pro-B Natriuret Pep 06/04/19 11:42 Creatine Kinase CK-MB (CK-2) 4.14 Troponin I 0.021 NT-Pro-B Natriuret Pep Impressions: Chest X-Ray 06/03/19 11:40 IMPRESSION: CARDIOMEGALY AND VASCULAR CONGESTION WITH BASILAR ATELECTASIS AND BILATERAL PLEURAL EFFUSIONS. Assessment & Plan - Diagnosis (1) Acute combined systolic and diastolic heart failure Is this a current diagnosis for this admission?: Yes Plan: Continue present treatment (2) Nephrotic syndrome Is this a current diagnosis for this admission?: Yes (3) T2DM (type 2 diabetes mellitus) Qualifiers: Diabetes mellitus fdc insulin use: with fdc use Diabetes alberto llanos complication status: with kidney complications Diabetes mellitus comp lication detail: with nephropathy Qualified Code(s): E11.21 - Type 2 diabetes mellitus with diabetic nephropathy; Z79.4 - meterman (current) use of insulin Is this a current diagnosis for this admission?: Yes Plan: Continue present treatment, the Soliqua is nonformulary in this hospital - Time Time Spent with patient: 35 or more minutes Level of Care: IMCU
[2019-06-05] MEDS: INSULIN GLARGINE,HUM.REC.ANLOG 1,000 UNIT/10 ML VIAL SUBCUT SCH (22:29)
[2019-06-05 22:30] LABS: BLOOD UREA NITROGEN 23 mg/dL (7-20); CALCIUM 8.4 mg/dL (8.4-10.2); CHLORIDE 102 mmol/L (98-107); GLUCOSE 296 mg/dL (75-110); POTASSIUM 4.3 mmol/L (3.6-5.0)
[2019-06-05 22:33] LABS: HEMATOCRIT 40.2 % (36.0-47.0); HEMOGLOBIN 12.8 g/dL (12.0-15.5); MEAN CORPUSCULAR HEMOGLOBIN 26.2 pg (27.0-33.4); MEAN CORPUSCULAR HGB CONC 31.9 g/dL (32.0-36.0); MEAN CORPUSCULAR VOLUME 82 fl (80-97); PLATELET COUNT 141 10^3/uL (150-450); RED BLOOD COUNT 4.89 10^6/uL (3.72-5.28); WHITE BLOOD COUNT 4.8 10^3/uL (4.0-10.5)
[2019-06-05 22:35] LABS: CARBON DIOXIDE 29 mmol/L (22-30)
[2019-06-05 22:38] LABS: ANION GAP 2 (5-19)
[2019-06-06] MEDS: SACUBITRIL/VALSARTAN 49 MG/51 MG TABLET PO SCH (00:11)
[2019-06-06] MEDS: SACUBITRIL/VALSARTAN 97 MG/103 MG TABLET PO SCH ×3 (00:15→21:32)
[2019-06-06] MEDS: METOPROLOL SUCCINATE 25 MG TAB.SR.24H PO SCH ×3 (00:15→21:32)
[2019-06-06] MEDS: OXYCODONE-ACETAMINOPHEN 5-325 MG TABLET PO PRN ×3 (02:04→21:31)
[2019-06-06] MEDS: OXYCODONE HCL IR 5 MG TABLET PO PRN ×3 (02:04→21:31)
[2019-06-06] MEDS: HEPARIN SOD (PORCINE) 5,000 UNIT/ML 1 ML VIAL SUBCUT SCH ×3 (05:01→21:31)
[2019-06-06] MEDS: INSULIN LISPRO 100 UNIT/ML 3 ML VIAL SUBCUT SCH ×4 (09:39→21:30)
[2019-06-06] MEDS: SPIRONOLACTONE 25 MG TABLET PO SCH (09:44)
[2019-06-06] MEDS: ATORVASTATIN CALCIUM 40 MG TABLET PO SCH (09:44)
[2019-06-06] MEDS: PHARMACY COMMUNICATION ORDER MC SCH (17:00)
[2019-06-06] MEDS: NORMAL SALINE 250 ML with FUROSEMIDE 250 MG IV PRN ×2 (19:00)
--- NOTE | 2019-06-06 20:57 | PDOC PROGRESS REPORT ---
Subjective Progress Note for:: 06/06/19 Subjective:: Patient seen by the bedside she continues to diurese, she was seen by Dr. Daniel, cardiology Reason For Visit: ACUTE SYSTOLIC HEART FAILURE,HISTORY OF CHRONIC Physical Exam Vital Signs: Temp Pulse Resp BP Pulse Ox 97.8 F 73 20 100/58 L 93 06/06/19 20:16 06/06/19 20:16 06/06/19 20:16 06/06/19 20:16 06/06/19 19:15 Intake & Output 06/05/19 06/06/19 06/07/19 06:59 06:59 06:59 Intake Total 1035 1132 840 Output Total 1575 2200 1200 Balance -353 -8858 -219 Weight 102.8 kg 102.7 kg General appearance: PRESENT: no acute distress, well-developed, well-nourished Head exam: PRESENT: atraumatic, normocephalic Eye exam: PRESENT: conjunctiva pink, EOMI, PERRLA Ear exam: PRESENT: normal external ear exam Mouth exam: PRESENT: moist, tongue midline Neck exam: PRESENT: full ROM Respiratory exam: PRESENT: clear to auscultation rodrigue Cardiovascular exam: PRESENT: RRR, +S1, +S2 Pulses: PRESENT: normal dorsalis pedis pul, +2 pedal pulses bilateral Vascular exam: PRESENT: normal capillary refill GI/Abdominal exam: PRESENT: normal bowel sounds, soft Rectal exam: PRESENT: deferred Neurological exam: PRESENT: alert, awake, oriented to person, oriented to place, oriented to time, oriented to situation, CN II-XII grossly intact. ABSENT: motor sensory deficit Psychiatric exam: PRESENT: appropriate affect, normal mood Skin exam: PRESENT: dry, intact, warm Results Laboratory Results: 06/05/19 21:40 06/05/19 21:40 06/05/19 06/05/19 21:40 21:40 WBC 4.8 RBC 4.89 Hgb 12.8 Hct 40.2 MCV 82 MCH 26.2 L MCHC 31.9 L RDW 18.0 H Plt Count 141 L Sodium 133.3 L Potassium 4.3 Chloride 102 Carbon Dioxide 29 Anion Gap 2 L BUN 23 H Creatinine 1.49 H Est GFR ( Amer) 42 L Glucose 296 H Calcium 8.4 06/03/19 06/03/19 06/03/19 14:09 14:09 22:23 Creatine Kinase CK-MB (CK-2) Cancelled Troponin I 0.032 Cancelled NT-Pro-B Natriuret Pep 85975 H Cancelled 06/03/19 06/03/19 06/03/19 22:23 23:35 23:35 Creatine Kinase Cancelled 222 H CK-MB (CK-2) 5.92 H Troponin I 0.034 NT-Pro-B Natriuret Pep 06/04/19 06/04/19 06/04/19 05:59 05:59 11:42 Creatine Kinase 193 H 164 H CK-MB (CK-2) 4.39 Troponin I 0.033 NT-Pro-B Natriuret Pep 06/04/19 11:42 Creatine Kinase CK-MB (CK-2) 4.14 Troponin I 0.021 NT-Pro-B Natriuret Pep Impressions: Chest X-Ray 06/03/19 11:40 IMPRESSION: CARDIOMEGALY AND VASCULAR CONGESTION WITH BASILAR ATELECTASIS AND BILATERAL PLEURAL EFFUSIONS. 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
[2019-06-06] MEDS: INSULIN GLARGINE,HUM.REC.ANLOG 1,000 UNIT/10 ML VIAL SUBCUT SCH (21:32)
--- NOTE | 2019-06-06 21:41 | Progress Note ---
Provider Note Provider Note: CARDIOLOGY PROGRESS NOTE by Dr. Radha Terry on 06/06/2019. OBJECTIVE: The patient continues to diurese and feels much better. She still has some degree of orthopnea. There is no PND. There is no palpitations. There is no arrhythmia seen on the monitor. There is no chest pain or discomfort. There is no palpitations. There is no arrhythmia seen on the monitor. There is no TIA CVA symptoms. She is tolerating the increase in the Entresto. PHYSICAL EXAMINATION: The patient is moderately obese. At present in no acute distress. Selected Entries 06/06/19 11:25 Temperature 97.9 F Temperature Oral Source Pulse Rate 74 Respiratory 16 Rate Blood Pressure 122/63 Blood Pressure 82 Mean BP Location Left Arm BP Position Supine O2 Sat by Pulse 97 Oximetry Oxygen Flow 1.50 Rate Oxygen Delivery Nasal Cannula Method HEAD: Is atraumatic normocephalic. EYES: Pupils equal round regular reactive light accommodation. Extraocular movements are normal there is no conjunctival pallor. There is no scleral icterus. EARS: Tympanic membranes are intact. External auditory canals are clear. NOSE: There is no deviated nasal septum. There is no inflammation of the nasal mucous membrane. MOUTH: Mucous membranes of mouth are moist. The patient's oral cavity is modified Mallampati classification class IV. There is no bleeding from the gums. THROAT: There is no exudates in the throat. There is no redness of the oropharynx. SKIN: There is no skin rashes or skin lesions. There is no particular ecchymosis. NECK: Is supple. There is no definite JVD. Carotids are equal there is no bruit. There is no lymphadenopathy. There is no accessory muscle respiration use. There is no goiter. Trachea central. LUNGS: There is diminished air entry prolonged expiration without any rhonchi rales or wheezing. On percussion there is hyperresonance throughout. On palpation there is no chest wall tenderness. HEART: S1-S2 is heard. There is no S3 gallop. There is no S4 gallop. There is murmur of mitral regurgitation and tricuspid regurgitation present. There is no rub. ABDOMEN: Is obese there is no paraspinal megaly. Bowel sounds are well heard. There is no tender areas of masses. EXTREMITIES: Both femoral pulses diminished. Leg pulses are diminished. There is no femoral bruits. There is 1- pedal edema. There is no DVT or cellulitis. There is no calf tenderness. SUPERVISOR SPECIAL EDUCATION: Patient is conscious awake, oriented x3 with no focal deficits. PSYCHIATRIC: The patient judgment insight seems to be intact although the patient's is slightly of slow mentation. Since admission the patient's total intake is been 1132 mL. Output is 2200 mL. Labs- All tests 24 hr 06/05/19 06/05/19 06/06/19 21:40 21:40 07:55 WBC 4.8 RBC 4.89 Hgb 12.8 Hct 40.2 MCV 82 MCH 26.2 L MCHC 31.9 L RDW 18.0 H Plt Count 141 L Sodium 133.3 L Potassium 4.3 Chloride 102 Carbon Dioxide 29 Anion Gap 2 L BUN 23 H Creatinine 1.49 H Est GFR ( Amer) 42 L Est GFR (MDRD) Non-Af 35 L Glucose 296 H POC Glucose 118 H Calcium 8.4 06/06/19 06/06/19 06/06/19 11:27 16:25 21:13 WBC RBC Hgb Hct MCV MCH MCHC RDW Plt Count Sodium Potassium Chloride Carbon Dioxide Anion Gap BUN Creatinine Est GFR ( Amer) Est GFR (MDRD) Non-Af Glucose POC Glucose 167 H 169 H 171 H Calcium Chest X-Ray 06/03/19 11:40 IMPRESSION: CARDIOMEGALY AND VASCULAR CONGESTION WITH BASILAR ATELECTASIS AND BILATERAL PLEURAL EFFUSIONS. IMPRESSION/RECOMMENDATION: 1. Acute on chronic combined systolic and diastolic heart failure. Continue Lasix drip will try to increase the Entresto. Continue Aldactone and Toprol-XL. Will check the patient's chest x-ray in the a.m. 2.Dilated cardiomyopathy with severely reduced LV ejection fraction of 25% 30% by echo of November 2018. Earlier in August her LV ejection fraction was severely reduced at 25%. Patient has been referred for AICD placement.. Continue Toprol-XL and we will see if we can increase Entresto. 3. Hypertension: Blood pressure well controlled. 4. Diabetes mellitus. 5. Obstructive sleep apnea by history. Continue CPAP at night 6. Medication noncompliance. Medications reviewed. Medical regimen and management plan discussed with attending provider. Medical decision making is of high complexity. 40 minutes spent as patient with more than 50% of time spent in direct patient care.. Will follow.
[2019-06-07] MEDS: OXYCODONE HCL IR 5 MG TABLET PO PRN ×2 (03:35→16:16)
[2019-06-07] MEDS: OXYCODONE-ACETAMINOPHEN 5-325 MG TABLET PO PRN ×2 (03:35→16:17)
[2019-06-07] MEDS: HEPARIN SOD (PORCINE) 5,000 UNIT/ML 1 ML VIAL SUBCUT SCH ×3 (05:00→21:00)
[2019-06-07] MEDS: SACUBITRIL/VALSARTAN 97 MG/103 MG TABLET PO SCH ×2 (09:34→21:08)
[2019-06-07] MEDS: ATORVASTATIN CALCIUM 40 MG TABLET PO SCH (09:34)
[2019-06-07] MEDS: METOPROLOL SUCCINATE 25 MG TAB.SR.24H PO SCH ×3 (09:34→22:19)
[2019-06-07] MEDS: SPIRONOLACTONE 25 MG TABLET PO SCH (09:34)
[2019-06-07] MEDS: INSULIN LISPRO 100 UNIT/ML 3 ML VIAL SUBCUT SCH ×4 (09:35→21:03)
--- NOTE | 2019-06-07 10:05 | RADIOLOGY REPORT (SQ) ---
EXAM DESCRIPTION: CHEST SINGLE VIEW COMPLETED DATE/TIME: 06/07/2019 7:41 am REASON FOR STUDY: CHF COMPARISON: 06/03/2019 NUMBER OF VIEWS: One view. TECHNIQUE: Single frontal radiographic view of the chest acquired. LIMITATIONS: None. FINDINGS: LUNGS AND PLEURA: Improved aeration in both lungs with residual airspace disease in the le ft lower lobe. MEDIASTINUM AND HILAR STRUCTURES: Stable. HEART AND VASCULATURE: Cardiac enlargement. Vascular congestion. BONES: No acute findings. HARDWARE: None in the chest. OTHER: No other significant finding. IMPRESSION: Improving CHF. TECHNICAL DOCUMENTATION: JOB ID: [id number] 2010 [employer]- All Rights Reserved Reading location - IP/workstation name: [email or web address]
--- NOTE | 2019-06-07 10:53 | PDOC PROGRESS REPORT ---
Subjective Progress Note for:: 06/07/19 Subjective:: Patient is currently doing well Patient's chest x-ray is improving Patient's blood work is all stable Patient is currently on a Lasix drip for CHF Currently see her Dr. Daniel Patient's denied any chest pain no short of breath Reason For Visit: ACUTE SYSTOLIC HEART FAILURE,HISTORY OF CHRONIC Physical Exam Vital Signs: Temp Pulse Resp BP Pulse Ox 97.4 F 68 16 121/73 97 06/07/19 07:44 06/07/19 07:44 06/07/19 07:44 06/07/19 07:44 06/07/19 07:44 Intake & Output 06/06/19 06/07/19 06/08/19 06:59 06:59 06:59 Intake Total 1132 1388 Output Total 2200 1825 Balance -1068 -437 Weight 102.7 kg 101.4 kg General appearance: PRESENT: no acute distress, well-developed, well-nourished Head exam: PRESENT: atraumatic, normocephalic Eye exam: PRESENT: conjunctiva pink, EOMI, PERRLA. ABSENT: scleral icterus Ear exam: PRESENT: normal external ear exam Mouth exam: PRESENT: moist, tongue midline Neck exam: PRESENT: full ROM. ABSENT: carotid bruit, JVD, lymphadenopathy, thyromegaly Respiratory exam: PRESENT: clear to auscultation rodrigue Cardiovascular exam: PRESENT: RRR. ABSENT: diastolic murmur, rubs, systolic murmur Vascular exam: PRESENT: normal capillary refill GI/Abdominal exam: PRESENT: normal bowel sounds, soft. ABSENT: distended, guarding, mass, organolmegaly, rebound, tenderness Rectal exam: PRESENT: deferred Extremities exam: PRESENT: pedal edema Neurological exam: PRESENT: alert, awake, oriented to person, oriented to place, oriented to time, oriented to situation, CN II-XII grossly intact. ABSENT: motor sensory deficit Psychiatric exam: PRESENT: appropriate affect, normal mood. ABSENT: homicidal ideation, suicidal ideation Skin exam: PRESENT: dry, intact, warm. ABSENT: cyanosis, rash Results Laboratory Results: 06/05/19 21:40 06/05/19 21:40 06/03/19 06/03/19 06/03/19 14:09 14:09 22:23 Creatine Kinase CK-MB (CK-2) Cancelled Troponin I 0.032 Cancelled NT-Pro-B Natriuret Pep 25937 H Cancelled 06/03/19 06/03/19 06/03/19 22:23 23:35 23:35 Creatine Kinase Cancelled 222 H CK-MB (CK-2) 5.92 H Troponin I 0.034 NT-Pro-B Natriuret Pep 06/04/19 06/04/19 06/04/19 05:59 05:59 11:42 Creatine Kinase 193 H 164 H CK-MB (CK-2) 4.39 Troponin I 0.033 NT-Pro-B Natriuret Pep 06/04/19 11:42 Creatine Kinase CK-MB (CK-2) 4.14 Troponin I 0.021 NT-Pro-B Natriuret Pep Impressions: Chest X-Ray 06/07/19 06:00 IMPRESSION: Improving CHF. Assessment & Plan - Diagnosis (1) Acute combined systolic and diastolic heart failure Is this a current diagnosis for this admission?: Yes Plan: Continues on Lasix drips (2) Bilateral pleural effusion Is this a current diagnosis for this admission?: Yes (3) T2DM (type 2 diabetes mellitus) Qualifiers: Diabetes mellitus residential insulin use: with ferry terminal supervisor use Diabetes mellitus complication status: with kidney complications Diabetes mellitus complication detail: with nephropathy Qualified Code(s): E11.21 - Type 2 diabetes mellitus with diabetic nephropathy; Z79.4 - intermediate accountant (current) use of insulin Is this a current diagnosis for this admission?: Yes Plan: Continue present treatment, the Soliqua is nonformulary in this hospital (4) Cardiomyopathy Qualifiers: Cardiomyopathy type: ischemic Qualified Code(s): I25.5 - Ischemic cardiomyopathy Is this a current diagnosis for this admission?: Yes (5) Chronic pain Qualifiers: Chronic pain type: chronic pain syndrome Qualified Code(s): G89.4 - Chronic pain syndrome Is this a current diagnosis for this admission?: Yes - Time Time Spent with patient: 15-24 minutes Level of Care: IMCU Medications reviewed and adjusted accordingly: Yes Anticipated discharge: Other Within: Other - Plan Summary Plan Summary: Continues to current medications
--- NOTE | 2019-06-07 14:58 | Progress Note ---
Provider Note Provider Note: CARDIOLOGY PROGRESS NOTE by Dr. Radha Terry on 06/07/2019. SUBJECTIVE: Patient states that his shortness of breath is improved but still complains of shortness of breath. She is able to lie down flat and hence there is no orthopnea. There is no PND. His leg edema is only trace at present. There is no chest pain or discomfort. There is no atrial or ventricular arrhythmia seen on the monitor. There is no TIA CVA symptoms. The patient complains of itching in both her lower extremities. Earlier this she was given Benadryl with relief. I do not see any rashes. PHYSICAL EXAMINATION: The patient is moderately obese in no acute distress. Selected Entries 06/07/19 11:29 Temperature 98.3 F Temperature Oral Source Pulse Rate 72 Respiratory 16 Rate Blood Pressure 121/67 Blood Pressure 85 Mean BP Location Left Arm BP Position Sitting O2 Sat by Pulse 93 Oximetry Oxygen Flow 1.00 Rate Oxygen Delivery Nasal Cannula Method HEAD: Is atraumatic normocephalic. EYES: Pupils equal round regular reactive light accommodation. Extraocular movements are normal there is no conjunctival pallor. There is no scleral icterus. EARS: Tympanic membranes are intact. External auditory canals are clear. NOSE: There is no deviated nasal septum. There is no inflammation of the nasal mucous membrane. MOUTH: Mucous membranes of mouth are moist. The patient's oral cavity is modified Mallampati classification class IV. There is no bleeding from the gums. THROAT: There is no exudates in the throat. There is no redness of the oropharynx. SKIN: There is no skin rashes or skin lesions. There is no particular ecchymosis. NECK: Is supple. There is no definite JVD. Carotids are equal there is no bruit. There is no lymphadenopathy. There is no accessory muscle respiration use. There is no goiter. Trachea central. LUNGS: There is diminished air entry prolonged expiration without any rhonchi rales or wheezing. On percussion there is hyperresonance throughout. On palpation there is no chest wall tenderness. HEART: S1-S2 is heard. There is no S3 gallop. There is no S4 gallop. There is murmur of mitral regurgitation and tricuspid regurgitation present. There is no rub. ABDOMEN: Is obese there is no paraspinal megaly. Bowel sounds are well heard. There is no tender areas of masses. EXTREMITIES: Both femoral pulses diminished. Leg pulses are diminished. There is no femoral bruits. There is trace pedal edema. There is no DVT or cellulitis. There is no calf tenderness. PHYSICIAN ASSISTANT PSYCHIATRY: Patient is conscious awake, oriented x3 with no focal deficits. PSYCHIATRIC: The patient judgment insight seems to be intact although the patie nt's is slightly of slow mentation. Since admission the patient's total intake is been 1388 mL. Output is 1825 mL. Labs- All tests 24 hr 06/07/19 06/07/19 06/07/19 06:58 11:30 15:59 POC Glucose 139 H 203 H 240 H 06/07/19 21:01 POC Glucose 115 H Chest X-Ray 06/03/19 11:40 IMPRESSION: CARDIOMEGALY AND VASCULAR CONGESTION WITH BASILAR ATELECTASIS AND BILATERAL PLEURAL EFFUSIONS. Chest X-Ray 06/07/19 06:00 IMPRESSION: Improving CHF. IMPRESSION/RECOMMENDATION: 1. Acute on chronic combined systolic and diastolic heart failure. Continue Lasix drip will try to increase the Entresto. Continue Aldactone and will increase Toprol-XL to 50 mg p.o. every 12 hours. Note today's chest x-ray shows improvement. 2.Dilated cardiomyopathy with severely reduced LV ejection fraction of 25% 30% by echo of November 2018. Earlier in August her LV ejection fraction was severely reduced at 25%. Patient has been referred for AICD placement. The patient's Entresto has been increased to maximum dose and she is tolerating it. We will recheck the patient's SMA-7 in the morning, and see if we can change the Lasix to intermittent IV Lasix rather than Lasix infusion. 3. Hypertension: Blood pressure well controlled. 4. Diabetes mellitus. 5. Obstructive sleep apnea by history. Continue CPAP at night 6. Medication noncompliance. Medications reviewed. Medical regimen and management plan discussed with attending provider. Medical decision making is of high complexity. 40 minutes spent as patient with more than 50% of time spent in direct patient care.. Will follow.
[2019-06-07] MEDS: PHARMACY COMMUNICATION ORDER MC SCH (18:49)
[2019-06-07] MEDS: INSULIN GLARGINE,HUM.REC.ANLOG 1,000 UNIT/10 ML VIAL SUBCUT SCH (21:08)
[2019-06-07] MEDS: NORMAL SALINE 250 ML with FUROSEMIDE 250 MG IV PRN ×2 (22:47)
[2019-06-08] MEDS: HEPARIN SOD (PORCINE) 5,000 UNIT/ML 1 ML VIAL SUBCUT SCH ×3 (05:08→21:30)
[2019-06-08 05:09] LABS: APPEARANCE,URINE CLOUDY; BILIRUBIN,URINE NEGATIVE (NEGATIVE); COLOR,URINE YELLOW; GLUCOSE, URINE NEGATIVE (NEGATIVE); KETONES,URINE NEGATIVE (NEGATIVE); LEUKOCYTE ESTERASE,URINE LARGE (NEGATIVE); NITRITE,URINE NEGATIVE (NEGATIVE); PROTEIN,URINE 100 mg/dL (NEGATIVE); URINE SPECIFIC GRAVITY 1.008; UROBILINOGEN,URINE NEGATIVE mg/dL (<2.0)
[2019-06-08 06:54] LABS: ANION GAP 8 (5-19); BLOOD UREA NITROGEN 16 mg/dL (7-20); CALCIUM 8.9 mg/dL (8.4-10.2); CARBON DIOXIDE 30 mmol/L (22-30); CHLORIDE 102 mmol/L (98-107); POTASSIUM 3.6 mmol/L (3.6-5.0)
[2019-06-08 07:04] LABS: GLUCOSE 36 mg/dL (75-110)
[2019-06-08] MEDS: INSULIN LISPRO 100 UNIT/ML 3 ML VIAL SUBCUT SCH ×4 (08:03→21:30)
--- NOTE | 2019-06-08 09:29 | PDOC PROGRESS REPORT ---
Subjective Progress Note for:: 06/08/19 Subjective:: Patient is currently doing well Patient's denied any chest pain no short of breath Patient is currently on a Lasix drip Reason For Visit: ACUTE SYSTOLIC HEART FAILURE,HISTORY OF CHRONIC Physical Exam Vital Signs: Temp Pulse Resp BP Pulse Ox 98.1 F 80 18 100/60 99 06/08/19 06:50 06/08/19 07:00 06/08/19 06:50 06/08/19 06:50 06/08/19 06:50 Intake & Output 06/07/19 06/08/19 06/09/19 06:59 06:59 06:59 Intake Total 1388 1236 Output Total 1825 1750 Balance -437 -514 Weight 101.4 kg 99.5 kg General appearance: PRESENT: no acute distress, well-developed, well-nourished Head exam: PRESENT: atraumatic, normocephalic Eye exam: PRESENT: conjunctiva pink, EOMI, PERRLA. ABSENT: scleral icterus Ear exam: PRESENT: normal external ear exam Mouth exam: PRESENT: moist, tongue midline Neck exam: PRESENT: full ROM. ABSENT: carotid bruit, JVD, lymphadenopathy, thyromegaly Respiratory exam: PRESENT: clear to auscultation rodrigue Cardiovascular exam: PRESENT: RRR. ABSENT: diastolic murmur, rubs, systolic murmur Pulses: PRESENT: normal dorsalis pedis pul, +2 pedal pulses bilateral Vascular exam: PRESENT: normal capillary refill GI/Abdominal exam: PRESENT: normal bowel sounds, soft. ABSENT: distended, guarding, mass, organolmegaly, rebound, tenderness Rectal exam: PRESENT: deferred Neurological exam: PRESENT: alert, awake, oriented to person, oriented to place, oriented to time, oriented to situation, CN II-XII grossly intact. ABSENT: motor sensory deficit Psychiatric exam: PRESENT: appropriate affect, normal mood. ABSENT: homicidal ideation, suicidal ideation Skin exam: PRESENT: dry, intact, warm. ABSENT: cyanosis, rash Results Laboratory Results: 06/05/19 21:40 06/08/19 04:51 06/08/19 06/08/19 04:50 04:51 Sodium 139.6 Potassium 3.6 Chloride 102 Carbon Dioxide 30 Anion Gap 8 BUN 16 Creatinine 1.21 Est GFR ( Amer) 54 L Glucose 36 L* Calcium 8.9 Urine Color YELLOW Urine Appearance CLOUDY Urine pH 7.0 Ur Specific [place] 1.008 Urine Protein 100 H Urine Glucose (UA) NEGATIVE Urine Ketones NEGATIVE Urine Blood SMALL H Urine Nitrite NEGATIVE Ur Leukocyte Esterase LARGE H Urine WBC (Auto) >182 Urine RBC (Auto) 15 06/03/19 06/03/19 06/03/19 14:09 14:09 22:23 Creatine Kinase CK-MB (CK-2) Cancelled Troponin I 0.032 Cancelled NT-Pro-B Natriuret Pep 10449 H Cancelled 06/03/19 06/03/19 06/03/19 22:23 23:35 23:35 Creatine Kinase Cancelled 222 H CK-MB (CK-2) 5.92 H Troponin I 0.034 NT-Pro-B Natriuret Pep 06/04/19 06/04/19 06/04/19 05:59 05:59 11:42 Creatine Kinase 193 H 164 H CK-MB (CK-2) 4.39 Troponin I 0.033 NT-Pro-B Natriuret Pep 06/04/19 11:42 Creatine Kinase CK-MB (CK-2) 4.14 Troponin I 0.021 NT-Pro-B Natriuret Pep Impressions: Chest X-Ray 06/07/19 06:00 IMPRESSION: Improving CHF. Assessment & Plan - Diagnosis (1) Acute combined systolic and diastolic heart failure Is this a current diagnosis for this admission?: Yes Plan: Continues on Lasix drips (2) Bilateral pleural effusion Is this a current diagnosis for this admission?: Yes (3) T2DM (type 2 diabetes mellitus) Qualifiers: Diabetes mellitus alf insulin use: with alf use Diabetes mellitus complication status: with kidney complications Diabetes mellitus complication detail: with nephropathy Qualified Code(s): E11.21 - Type 2 diabetes mellitus with diabetic nephropathy; Z79.4 - care home (current) use of insulin Is this a current diagnosis for this admission?: Yes Plan: Also blood sugar was low this morning reduce the Lantus 30 units at night (4) Cardiomyopathy Qualifiers: Cardiomyopathy type: ischemic Qualified Code(s): I25.5 - Ischemic card iomyopathy Is this a current diagnosis for this admission?: Yes (5) Chronic pain Qualifiers: Chronic pain type: chronic pain syndrome Qualified Code(s): G89.4 - Chronic pain syndrome Is this a current diagnosis for this admission?: Yes - Time Time Spent with patient: 15-24 minutes Level of Care: IMCU Medications reviewed and adjusted accordingly: Yes Anticipated discharge: Home Within: Other - Plan Summary Plan Summary: Continues to Lasix drips per cardiology Reduce the Lantus 30 units at nights because of hypoglycemic episodes
[2019-06-08] MEDS: ATORVASTATIN CALCIUM 40 MG TABLET PO SCH (09:54)
[2019-06-08] MEDS: METOPROLOL SUCCINATE 25 MG TAB.SR.24H PO SCH ×2 (09:54→21:29)
[2019-06-08] MEDS: OXYCODONE HCL IR 5 MG TABLET PO PRN ×2 (09:54→20:15)
[2019-06-08] MEDS: SPIRONOLACTONE 25 MG TABLET PO SCH (09:55)
[2019-06-08] MEDS: OXYCODONE-ACETAMINOPHEN 5-325 MG TABLET PO PRN ×2 (09:55→20:14)
[2019-06-08] MEDS: SACUBITRIL/VALSARTAN 97 MG/103 MG TABLET PO SCH ×2 (09:56→21:33)
--- NOTE | 2019-06-08 13:48 | Progress Note ---
Provider Note Provider Note: CARDIOLOGY PROGRESS NOTE by Dr. Radha Terry on 06/08/2019. SUBJECTIVE: The patient states she is feeling better and her shortness of breath is much improved. But still she states that she is has some mild shortness of breath at rest. There is no PND orthopnea and she is lying flat in bed. His leg edema is resolved. There is no chest pain discomfort. There is no arrhythmia seen on the monitor. There is no dizziness or syncope or sudden . There is no TIA CVA symptoms. PHYSICAL EXAMINATION: The patient is moderately obese. At present in no acute distress. Selected Entries 06/08/19 11:12 Temperature 98.4 F Temperature Oral Source Pulse Rate 84 Respiratory 18 Rate Blood Pressure 119/67 Blood Pressure 84 Mean BP Location Right Arm BP Position Supine O2 Sat by Pulse 98 Oximetry Oxygen Flow 1.00 Rate Oxygen Delivery Nasal Cannula Method HEAD: Is atraumatic normocephalic. EYES: Pupils equal round regular reactive light accommodation. Extraocular movements are normal there is no conjunctival pallor. There is no scleral icterus. EARS: Tympanic membranes are intact. External auditory canals are clear. NOSE: There is no deviated nasal septum. There is no inflammation of the nasal mucous membrane. MOUTH: Mucous membranes of mouth are moist. The patient's oral cavity is modified Mallampati classification class IV. There is no bleeding from the gums. THROAT: There is no exudates in the throat. There is no redness of the oropharynx. SKIN: There is no skin rashes or skin lesions. There is no particular ecchymosis. NECK: Is supple. There is no definite JVD. Carotids are equal there is no bruit. There is no lymphadenopathy. There is no accessory muscle respiration use. There is no goiter. Trachea central. LUNGS: There is diminished air entry prolonged expiration without any rhonchi rales or wheezing. On percussion there is hyperresonance throughout. On palpation there is no chest wall tenderness. HEART: S1-S2 is heard. There is no S3 gallop. There is no S4 gallop. There is murmur of mitral regurgitation and tricuspid regurgitation present. There is no rub. ABDOMEN: Is obese there is no paraspinal megaly. Bowel sounds are well heard. There is no tender areas of masses. EXTREMITIES: Both femoral pulses diminished. Leg pulses are diminished. There is no femoral bruits. There is trace pedal edema. There is no DVT or cellulitis. There is no calf tenderness. 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 PSYCHIATRIC: The patient judgment insight seems to be intact although the patient's is slightly of slow mentation. Since admission the patient's total intake is been 1236 mL. Output is 1750mL. Labs- All tests 24 hr 06/07/19 06/07/19 06/08/19 15:59 21:01 04:50 Sodium Potassium Chloride Carbon Dioxide Anion Gap BUN Creatinine Est GFR ( Amer) Est GFR (MDRD) Non-Af Glucose POC Glucose 240 H 115 H Calcium Urine Color YELLOW Urine Appearance CLOUDY Urine pH 7.0 Ur Specific [place] 1.008 Urine Protein 100 H Urine Glucose (UA) NEGATIVE Urine Ketones NEGATIVE Urine Blood SMALL H Urine Nitrite NEGATIVE Urine Bilirubin NEGATIVE Urine Urobilinogen NEGATIVE Ur Leukocyte Esterase LARGE H Urine WBC (Auto) >182 Urine RBC (Auto) 15 Urine Bacteria (Auto) 3+ Urine WBC Clumps MANY Squamous Epi Cells Auto 1 U Non-Squamous Epis Auto 2 Urine Mucus (Auto) OCC Urine Ascorbic Acid NEGATIVE 06/08/19 06/08/19 06/08/19 04:51 06:50 11:11 Sodium 139.6 Potassium 3.6 Chloride 102 Carbon Dioxide 30 Anion Gap 8 BUN 16 Creatinine 1.21 Est GFR ( Amer) 54 L Est GFR (MDRD) Non-Af 45 L Glucose 36 L* POC Glucose 117 H 218 H Calcium 8.9 Urine Color Urine Appearance Urine pH Ur Specific [place] Urine Protein Urine Glucose (UA) Urine Ketones Urine Blood Urine Nitrite Urine Bilirubin Urine Urobilinogen Ur Leukocyte Esterase Urine WBC (Auto) Urine RBC (Auto) Urine Bacteria (Auto) Urine WBC Clumps Squamous Epi Cells Auto U Non-Squamous Epis Auto Urine Mucus (Auto) Urine Ascorbic Acid Chest X-Ray 06/03/19 11:40 IMPRESSION: CARDIOMEGALY AND VASCULAR CONGESTION WITH BASILAR ATELECTASIS AND BILATERAL PLEURAL EFFUSIONS. Chest X-Ray 06/07/19 06:00 IMPRESSION: Improving CHF. IMPRESSION/RECOMMENDATION: 1. Acute on chronic combined systolic and diastolic heart failure. Continue Lasix drip will try to increase the Entresto. Continue Aldactone and will increase Toprol-XL to 50 mg p.o. every 12 hours. Note today's chest x-ray shows improvement. 2.Dilated cardiomyopathy with severely reduced LV ejection fraction of 25% 30% by echo of November 2018. Earlier in August her LV ejection fraction was severely reduced at 25%. Patient has been referred for AICD placement. The patient's Entresto has been increased to maximum dose and she is tolerating it. We will change the IV Lasix infusion to intermittent IV Lasix. 3. Hypertension: Blood pressure well controlled. 4. Diabetes mellitus. 5. Obstructive sleep apnea by history. Continue CPAP at night 6. Medication noncompliance. Medications reviewed. Medical regimen and management plan discussed with attending provider. Medical decision making is of high complexity, in view of the need to adjust her medication regimen, after thorough review of her lab res ults.. 40 minutes spent as patient with more than 50% of time spent in direct patient care.. Will follow.
[2019-06-08] MEDS: PHARMACY COMMUNICATION ORDER MC SCH (17:06)
[2019-06-08] MEDS: FUROSEMIDE INJ/PF 40 MG/4 ML SDV IV SCH (21:29)
[2019-06-08] MEDS: INSULIN GLARGINE,HUM.REC.ANLOG 1,000 UNIT/10 ML VIAL SUBCUT SCH (21:31)
[2019-06-09 05:21] LABS: ANION GAP 7 (5-19); BLOOD UREA NITROGEN 24 mg/dL (7-20); CALCIUM 8.7 mg/dL (8.4-10.2); CARBON DIOXIDE 31 mmol/L (22-30); CHLORIDE 100 mmol/L (98-107); GLUCOSE 147 mg/dL (75-110)
[2019-06-09 05:25] LABS: POTASSIUM 4.6 mmol/L (3.6-5.0)
[2019-06-09] MEDS: HEPARIN SOD (PORCINE) 5,000 UNIT/ML 1 ML VIAL SUBCUT SCH ×3 (06:12→22:57)
[2019-06-09] MEDS: INSULIN LISPRO 100 UNIT/ML 3 ML VIAL SUBCUT SCH ×4 (08:10→22:58)
[2019-06-09] MEDS: SPIRONOLACTONE 25 MG TABLET PO SCH (09:49)
[2019-06-09] MEDS: ATORVASTATIN CALCIUM 40 MG TABLET PO SCH (09:49)
[2019-06-09] MEDS: FUROSEMIDE INJ/PF 40 MG/4 ML SDV IV SCH ×2 (09:49→22:59)
[2019-06-09] MEDS: SACUBITRIL/VALSARTAN 97 MG/103 MG TABLET PO SCH ×2 (09:49→23:03)
[2019-06-09] MEDS: METOPROLOL SUCCINATE 25 MG TAB.SR.24H PO SCH (09:49)
[2019-06-09] MEDS: OXYCODONE-ACETAMINOPHEN 5-325 MG TABLET PO PRN (11:47)
[2019-06-09] MEDS: OXYCODONE HCL IR 5 MG TABLET PO PRN (11:47)
--- NOTE | 2019-06-09 20:35 | PDOC PROGRESS REPORT ---
Subjective Progress Note for:: 06/09/19 Subjective:: Patient seen by the bedside, she complain of feeling malaise, she needs physical therapy, consultation will be requested from PT to get her out of bed to chair Reason For Visit: ACUTE SYSTOLIC HEART FAILURE,HISTORY OF CHRONIC Physical Exam Vital Signs: Temp Pulse Resp BP Pulse Ox 101.8 F H 87 21 H 125/75 92 06/09/19 20:04 06/09/19 20:04 06/09/19 20:04 06/09/19 20:04 06/09/19 20:04 Intake & Output 06/08/19 06/09/19 06/10/19 06:59 06:59 06:59 Intake Total 1236 791 620 Output Total 1750 1750 750 Balance -514 -959 -130 Weight 99.5 kg 99.5 kg General appearance: PRESENT: no acute distress Eye exam: PRESENT: PERRLA Respiratory exam: PRESENT: clear to auscultation rodrigue Cardiovascular exam: PRESENT: +S1, +S2 GI/Abdominal exam: PRESENT: soft Neurological exam: PRESENT: alert Results Laboratory Results: 06/05/19 21:40 06/09/19 03:50 06/09/19 03:50 Sodium 137.5 Potassium 4.6 D Chloride 100 Carbon Dioxide 31 H Anion Gap 7 BUN 24 H Creatinine 1.31 H Est GFR ( Amer) 49 L Glucose 147 H Calcium 8.7 06/03/19 06/03/19 06/03/19 14:09 14:09 22:23 Creatine Kinase CK-MB (CK-2) Cancelled Troponin I 0.032 Cancelled NT-Pro-B Natriuret Pep 78179 H Cancelled 06/03/19 06/03/19 06/03/19 22:23 23:35 23:35 Creatine Kinase Cancelled 222 H CK-MB (CK-2) 5.92 H Troponin I 0.034 NT-Pro-B Natriuret Pep 06/04/19 06/04/19 06/04/19 05:59 05:59 11:42 Creatine Kinase 193 H 164 H CK-MB (CK-2) 4.39 Troponin I 0.033 NT-Pro-B Natriuret Pep 06/04/19 11:42 Creatine Kinase CK-MB (CK-2) 4.14 Troponin I 0.021 NT-Pro-B Natriuret Pep Impressions: Chest X-Ray 06/07/19 06:00 IMPRESSION: Improving CHF. Assessment & Plan - Diagnosis (1) Acute combined systolic and diastolic heart failure Is this a current diagnosis for this admission?: Yes Plan: Patient will continue present line of management (2) Nephrotic syndrome Is this a current diagnosis for this admission?: Yes (3) T2DM (type 2 diabetes mellitus) Qualifiers: Diabetes mellitus exterminator helper termite insulin use: with prison use Diabetes mellitus complication status: with kidney complications Diabetes mellitus complication detail: with nephropathy Qualified Code(s): E11.21 - Type 2 diabetes mellitus with diabetic nephropathy; Z79.4 - exterminator helper termite (current) use of insulin Is this a current diagnosis for this admission?: Yes (4) Physical deconditioning Is this a current diagnosis for this admission?: Yes Plan: Obtain consultation from PT - Time Time Spent with patient: 25-34 minutes Level of Care: IMCU
[2019-06-09] MEDS: ACETAMINOPHEN 325 MG TABLET PO PRN (20:46)
--- NOTE | 2019-06-09 20:46 | Progress Note ---
Provider Note Provider Note: CARDIOLOGY PROGRESS NOTE by Dr. Radha Waters on 06/09/2019. SUBJECTIVE: The patient complains of generalized fatigue and malaise. She is still complains of severe shortness of breath. She is able to lie down flat and has no orthopnea. There is no PND. Her leg edema has almost of all resolved with there being only trace pedal edema. Her urine output remains good. She has no chest pain or discomfort. There is no palpitations or near syncope or syncope. There is no ventricular arrhythmia seen on the monitor. There is no TIA CVA symptoms. PHYSICAL EXAMINATION: The patient is moderately obese. In no acute distress. Selected Entries 06/09/19 16:18 Temperature 98.7 F Temperature Oral Source Pulse Rate 86 Respiratory 21 H Rate Blood Pressure 119/66 Blood Pressure 83 Mean BP Location Left Arm BP Position Supine O2 Sat by Pulse 97 Oximetry Oxygen Flow 0.50 Rate Oxygen Delivery Nasal Cannula Method HEAD: Is atraumatic normocephalic. EYES: Pupils equal round regular reactive light accommodation. Extraocular movements are normal there is no conjunctival pallor. There is no scleral icterus. EARS: Tympanic membranes are intact. External auditory canals are clear. NOSE: There is no deviated nasal septum. There is no inflammation of the nasal mucous membrane. MOUTH: Mucous membranes of mouth are moist. The patient's oral cavity is modified Mallampati classification class IV. There is no bleeding from the gums. THROAT: There is no exudates in the throat. There is no redness of the oropharynx. SKIN: There is no skin rashes or skin lesions. There is no particular ecchymosis. NECK: Is supple. There is no definite JVD. Carotids are equal there is no bruit. There is no lymphadenopathy. There is no accessory muscle respiration use. There is no goiter. Trachea central. LUNGS: There is diminished air entry prolonged exp iration without any rhonchi rales or wheezing. On percussion there is hyperresonance throughout. On palpation there is no chest wall tenderness. HEART: S1-S2 is heard. There is no S3 gallop. There is no S4 gallop. There is murmur of mitral regurgitation and tricuspid regurgitation present. There is no rub. ABDOMEN: Is obese there is no paraspinal megaly. Bowel sounds are well heard. There is no tender areas of masses. EXTREMITIES: Both femoral pulses diminished. Leg pulses are diminished. There is no femoral bruits. There is trace pedal edema. There is no DVT or cellulitis. There is no calf tenderness. 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 PSYCHIATRIC: The patient judgment insight seems to be intact although the patient's is slightly of slow mentation. Since admission the patient's total intake is been 791 mL. Output is 1750mL. Labs- All tests 24 hr 06/08/19 06/09/19 06/09/19 20:49 00:45 03:50 Sodium 137.5 Potassium 4.6 D Chloride 100 Carbon Dioxide 31 H Anion Gap 7 BUN 24 H Creatinine 1.31 H Est GFR ( Amer) 49 L Est GFR (MDRD) Non-Af 41 L Glucose 147 H POC Glucose 272 H 171 H Calcium 8.7 06/09/19 06/09/19 06/09/19 07:23 11:13 16:15 Sodium Potassium Chloride Carbon Dioxide Anion Gap BUN Creatinine Est GFR ( Amer) Est GFR (MDRD) Non-Af Glucose POC Glucose 154 H 137 H 132 H Calcium Chest X-Ray 06/03/19 11:40 IMPRESSION: CARDIOMEGALY AND VASCULAR CONGESTION WITH BASILAR ATELECTASIS AND BILATERAL PLEURAL EFFUSIONS. Chest X-Ray 06/07/19 06:00 IMPRESSION: Improving CHF. IMPRESSION/RECOMMENDATION: 1. Acute on chronic combined systolic and diastolic heart failure. The patient is off the IV Lexiscan infusion. She is on IV Lasix at interval doses. She still has good urine output. She is tolerating the increased dose of Toprol-XL 50 mg p.o. every 12 hours and the maximum dose of Entresto twice a day. 2.Dilated cardiomyopathy with severely reduced LV ejection fraction of 25% 30% by echo of November 2018. Earlier in August her LV ejection fraction was severely reduced at 25%. Patient has been referred for AICD placement. The patient's Entresto has been increased to maximum dose and she is tolerating it. The patient is on Toprol-XL and intermittent IV Lasix. 3. Hypertension: Blood pressure well controlled. 4. Diabetes mellitus. 5. Obstructive sleep apnea by history. Continue CPAP at night 6. Medication noncompliance. Medications reviewed. Medical regimen and management plan discussed with attending provider. Medical decision making is of high complexity, in view of the need to adjust her medication regimen, after thorough review of her lab results.. 40 minutes spent as patient with more than 50% of time spent in dir ect patient care.. Will follow.
[2019-06-09] MEDS: METOPROLOL SUCCINATE 50 MG TAB.SR.24H PO SCH (22:59)
[2019-06-09] MEDS: INSULIN GLARGINE,HUM.REC.ANLOG 1,000 UNIT/10 ML VIAL SUBCUT SCH (23:00)
[2019-06-10 05:00] LABS: ANION GAP 9 (5-19); BLOOD UREA NITROGEN 24 mg/dL (7-20); CALCIUM 8.7 mg/dL (8.4-10.2); CARBON DIOXIDE 28 mmol/L (22-30); CHLORIDE 98 mmol/L (98-107); GLUCOSE 254 mg/dL (75-110); POTASSIUM 4.6 mmol/L (3.6-5.0)
[2019-06-10] MEDS: HEPARIN SOD (PORCINE) 5,000 UNIT/ML 1 ML VIAL SUBCUT SCH ×3 (06:42→22:18)
[2019-06-10] MEDS: INSULIN LISPRO 100 UNIT/ML 3 ML VIAL SUBCUT SCH ×4 (08:51→22:20)
[2019-06-10] MEDS: FUROSEMIDE INJ/PF 40 MG/4 ML SDV IV SCH ×2 (09:22→22:19)
[2019-06-10] MEDS: SACUBITRIL/VALSARTAN 97 MG/103 MG TABLET PO SCH ×2 (09:22→22:18)
[2019-06-10] MEDS: SPIRONOLACTONE 25 MG TABLET PO SCH (09:22)
[2019-06-10] MEDS: ATORVASTATIN CALCIUM 40 MG TABLET PO SCH (09:22)
[2019-06-10] MEDS: METOPROLOL SUCCINATE 50 MG TAB.SR.24H PO SCH (09:22)
[2019-06-10] MEDS: OXYCODONE-ACETAMINOPHEN 5-325 MG TABLET PO PRN (15:16)
[2019-06-10] MEDS: OXYCODONE HCL IR 5 MG TABLET PO PRN (15:16)
--- NOTE | 2019-06-10 18:39 | Progress Note ---
Provider Note Provider Note: CARDIOLOGY PROGRESS NOTE by Dr. Radha Terry on 06/10/2019. SUBJECTIVE: The patient still complains of being weak and fatigued. She is less short of breath. There is no PND orthopnea. She is able to lie down flat in bed. She denies any chest pain or discomfort. There is no PND orthopnea. She has only trace leg edema. There is no arrhythmia seen on the monitor. The patient states her appetite is decreased. Her Renal function is slightly worse than yesterday. PHYSICAL EXAMINATION: The patient is moderately obese. But at present in no acute distress. Selected Entries 06/10/19 11:16 Temperature 98.4 F Temperature Oral Source Pulse Rate 75 Respiratory 19 Rate Blood Pressure 120/78 Blood Pressure 92 Mean BP Location Right Arm BP Position Supine O2 Sat by Pulse 96 Oximetry Oxygen Flow 3.00 Rate Oxygen Delivery Nasal Cannula Method HEAD: Is atraumatic normocephalic. EYES: Pupils equal round regular reactive light accommodation. Extraocular movements are normal there is no conjunctival pallor. There is no scleral icterus. EARS: Tympanic membranes are intact. External auditory canals are clear. NOSE: There is no deviated nasal septum. There is no inflammation of the nasal mucous membrane. MOUTH: Mucous membranes of mouth are moist. The patient's oral cavity is modified Mallampati classification class IV. There is no bleeding from the gums. THROAT: There is no exudates in the throat. There is no redness of the oropharynx. SKIN: There is no skin rashes or skin lesions. There is no particular ecchymosis. NECK: Is supple. There is no definite JVD. Carotids are equal there is no bruit. There is no lymphadenopathy. There is no accessory muscle respiration use. There is no goiter. Trachea central. LUNGS: There is diminished air entry prolonged expiration without any rhonchi rales or wheezing. On percussion there is hyperresonance throughout. On palpation there is no chest wall tenderness. HEART: S1-S2 is heard. There is no S3 gallop. There is no S4 gallop. There is murmur of mitral regurgitation and tricuspid regurgitation present. There is no rub. ABDOMEN: Is obese there is no paraspinal megaly. Bowel sounds are well heard. There is no tender areas of masses. EXTREMITIES: Both femoral pulses diminished. Leg pulses are diminished. There is no femoral bruits. There is trace pedal edema. There is no DVT or cellulitis. There is no calf tenderness. 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 PSYCHIATRIC: The patient judgment insight seems to be intact although the patient's is slightly of slow mentation. Since admission the patient's total intake is been 1020 mL. Output is 1200mL. Labs- All tests 24 hr 06/09/19 06/10/19 06/10/19 21:05 04:14 07:57 Sodium 134.6 L Potassium 4.6 Chloride 98 Carbon Dioxide 28 Anion Gap 9 BUN 24 H Creatinine 1.44 H Est GFR ( Amer) 44 L Est GFR (MDRD) Non-Af 36 L Glucose 254 H POC Glucose 129 H 235 H Calcium 8.7 06/10/19 06/10/19 11:15 17:14 Sodium Potassium Chloride Carbon Dioxide Anion Gap BUN Creatinine Est GFR ( Amer) Est GFR (MDRD) Non-Af Glucose POC Glucose 201 H 198 H Calcium Chest X-Ray 06/03/19 11:40 IMPRESSION: CARDIOMEGALY AND VASCULAR CONGESTION WITH BASILAR ATELECTASIS AND BILATERAL PLEURAL EFFUSIONS. Chest X-Ray 06/07/19 06:00 IMPRESSION: Improving CHF. IMPRESSION/RECOMMENDATION: 1. Acute on chronic combined systolic and diastolic heart failure. The patient is off the IV Lasix infusion. She is on IV Lasix at interval doses. She still has good urine output. She is tolerating the increased dose of Toprol-XL 50 mg p.o. every 12 hours and the maximum dose of Entresto twice a day. 2.Dilated cardiomyopathy with severely reduced LV ejection fraction of 25% 30% by echo of November 2018. Earlier in August her LV ejection fraction was severely reduced at 25%. Patient has been referred for AICD placement. The patient's Entresto has been increased to maximum dose and she is tolerating it. The patient is on Toprol-XL and intermittent IV Lasix. 3. Hypertension: Blood pressure well controlled. 4. Diabetes mellitus. 5. Obstructive sleep apnea by history. Continue CPAP at night 6. Medication noncompliance. Medications reviewed. Medical regimen and management plan discussed with attending provider. Medical decision making is of high complexity, in view of the need to adjust her medication regimen, after thorough review of her lab results.. 40 minutes spent as patient with more than 50% of time spent in direct patient care.. Will follow.
[2019-06-10] MEDS: INSULIN GLARGINE,HUM.REC.ANLOG 1,000 UNIT/10 ML VIAL SUBCUT SCH (22:19)
--- NOTE | 2019-06-10 22:50 | PDOC PROGRESS REPORT ---
Subjective Progress Note for:: 06/10/19 Subjective:: I saw patient by the bedside, she endorses fatigue she also have social issues, she is presently staying with her aunt she wants to return back home with her daughter on discharge she is also requesting home health, assistive devices a walker, the discharge planning will make arrangement for this durables. She had episode of severe sinus bradycardia with the rate dropping as low as 40 this happened twice today once about 2 AM and also early on this morning, the frequency of the Toprol acid was reduced to once a day rather than twice a day ,is the most likely cause of the severe sinus bradycardia Reason For Visit: ACUTE SYSTOLIC HEART FAILURE,HISTORY OF CHRONIC Physical Exam Vital Signs: Temp Pulse Resp BP Pulse Ox 98.5 F 69 19 117/68 99 06/10/19 17:14 06/10/19 17:14 06/10/19 17:14 06/10/19 17:14 06/10/19 17:14 Intake & Output 06/09/19 06/10/19 06/11/19 06:59 06:59 06:59 Intake Total 791 1020 1252 Output Total 1750 1200 300 Balance -959 -180 952 Weight 99.5 kg 99.6 kg General appearance: PRESENT: no acute distress Eye exam: PRESENT: PERRLA Respiratory exam: PRESENT: clear to auscultation rodrigue Cardiovascular exam: PRESENT: +S1, +S2 GI/Abdominal exam: PRESENT: soft Neurological exam: PRESENT: alert Results Laboratory Results: 06/05/19 21:40 06/10/19 04:14 06/10/19 04:14 Sodium 134.6 L Potassium 4.6 Chloride 98 Carbon Dioxide 28 Anion Gap 9 BUN 24 H Creatinine 1.44 H Est GFR ( Amer) 44 L Glucose 254 H Calcium 8.7 06/08/19 04:50 Catheterized Urine Urine Culture - Final NO GROWTH 2 DAYS 06/03/19 06/03/19 06/03/19 14:09 14:09 22:23 Creatine Kinase CK-MB (CK-2) Cancelled Troponin I 0.032 Cancelled NT-Pro-B Natriuret Pep 14626 H Cancelled 06/03/19 06/03/19 06/03/19 22:23 23:35 23:35 Creatine Kinase Cancelled 222 H CK-MB (CK-2) 5.92 H Troponin I 0.034 NT-Pro-B Natriuret Pep 06/04/19 06/04/19 06/04/19 05:59 05:59 11:42 Creatine Kinase 193 H 164 H CK-MB (CK-2) 4.39 Troponin I 0.033 NT-Pro-B Natriuret Pep 06/04/19 11:42 Creatine Kinase CK-MB (CK-2) 4.14 Troponin I 0.021 NT-Pro-B Natriuret Pep Impressions: Chest X-Ray 06/07/19 06:00 IMPRESSION: Improving CHF. Assessment & Plan - Diagnosis (1) Acute combined systolic and diastolic heart failure Is this a current diagnosis for this admission?: Yes Plan: Continue present line of management (2) Nephrotic syndrome Is this a current diagnosis for this admission?: Yes (3) T2DM (type 2 diabetes mellitus) Qualifiers: Diabetes mellitus terminal manager insulin use: with residential use Diabetes mellitus complication status: with kidney complications Diabetes mellitus complication detail: with nephropathy Qualified Code(s): E11.21 - Type 2 diabetes mellitus with diabetic nephropathy; Z79.4 - terminal system operator (current) use of insulin Is this a current diagnosis for this admission?: Yes (4) Physical deconditioning Is this a current diagnosis for this admission?: Yes - Time Time Spent with patient: 25-34 minutes Level of Care: IMCU Medications reviewed and adjusted accordingly: Yes
[2019-06-11] MEDS: HEPARIN SOD (PORCINE) 5,000 UNIT/ML 1 ML VIAL SUBCUT SCH (05:10)
[2019-06-11] MEDS: INSULIN LISPRO 100 UNIT/ML 3 ML VIAL SUBCUT SCH ×2 (08:20→12:07)
[2019-06-11] MEDS: SPIRONOLACTONE 25 MG TABLET PO SCH (09:14)
[2019-06-11] MEDS: FUROSEMIDE INJ/PF 40 MG/4 ML SDV IV SCH (09:14)
[2019-06-11] MEDS: ATORVASTATIN CALCIUM 40 MG TABLET PO SCH (09:14)
[2019-06-11] MEDS: SACUBITRIL/VALSARTAN 97 MG/103 MG TABLET PO SCH (09:14)
[2019-06-11] MEDS ORDERED: METOPROLOL SUCCINATE 50 MG TAB.SR.24H PO SCH (10:00)
--- NOTE | 2019-06-11 14:21 | PDOC DISCHARGE SUMMARY ---
Impression - Admit/DC Date/PCP Admission Date/Primary Care Provider: 06/03/19 18:08 TRAVIS SUBRAMANIAN MD Discharge Date: 06/11/19 - Discharge Diagnosis (1) Acute combined systolic and diastolic heart failure Is this a current diagnosis for this admission?: Yes (2) Nephrotic syndrome Is this a current diagnosis for this admission?: Yes (3) T2DM (type 2 diabetes mellitus) Is this a current diagnosis for this admission?: Yes (4) Physical deconditioning Is this a current diagnosis for this admission?: Yes - Additional Information Discharge Diet: Cardiac, Diabetic Discharge Activity: Activity As Tolerated, Balance Activity w/Rest, Weigh Daily Referrals: TRAVIS SUBRAMANIAN MD [Primary Care Provider] - 06/12/19 9:30 am Prescriptions: RX: Sacubitril/Valsartan [Entresto 97 mg/103 mg Tablet] 1 tab PO Q12 #90 tablet RX: Furosemide [Lasix Inj/Pf 40 mg/4 ml Sdv] 40 mg PO Q12 #60 vial RX: Metoprolol Succinate [Toprol Xl 50 mg Tab.sr] 50 mg PO DAILY #90 tab.sr.24h Home Medications: RX: Atorvastatin Calcium [Lipitor 40 mg Tablet] 40 mg PO DAILY 11/23/18 RX: Insulin Glargine/Lixisenatide [Soliqua 100 Unit-33 Mcg/ml Pen] 30 units SQ QAM 06/03/19 RX: Metoprolol Succinate [Toprol Xl 25 mg Tab.sr] 25 mg PO DAILY 06/04/19 RX: Oxycodone HCl/Acetaminophen [Oxycodone-Acetaminophen 10-325] 1 each PO QIDP PRN 06/04/19 RX: Furosemide [Lasix Inj/Pf 40 mg/4 ml Sdv] 40 mg PO Q12 #60 vial 06/11/19 RX: Metoprolol Succinate [Toprol Xl 50 mg Tab.sr] 50 mg PO DAILY #90 tab.sr.24h 06/11/19 RX: Sacubitril/Valsartan [Entresto 97 mg/103 mg Tablet] 1 tab PO Q12 #90 tablet 06/11/19 RX: Spironolactone [Aldactone 25 mg Tablet] 25 mg PO DAILY #90 tablet 06/11/19 History of Present Illiness History of Present Illness: EDUARDA JARRELL is a 68 year old female, She has a history of combined chronic systolic and diastolic heart failure,, 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 She came to emergency room for evaluation of flank pain and shortness of breath. In the emergency room she was found to be in CHF. Patient have a history of chronic CHF she is on evidence-based medication for the management of CHF including Entresto, evidence-based beta-vianey, metoprolol, she is supposed to be on diuretic furosemide but she told me that she ran out, I believe she had a refill that was prescribed from the office. I started recently following this patient, in the last 3 months she has been scheduled to follow-up with me on a monthly basis because of her noncompliance, diabetes is not well controlled recently started a new medication, a combination of long-acting insulin and GLP agonist Soliqua. She was supposed to be on Jardiance but it was not listed on the medication list that was reconciled by the pharmacist. I saw her on the floor she is not overly different from the patient I seen on a monthly basis in the office in the last 3 months, part of the reason for the frequent monthly evaluation is to mitigate against hospital admission, before I started following this patient outpatient she has multiple hospital admission for CHF related complications Hospital Course Hospital Course: Patient was admitted for the management of acute systolic heart failure, she was treated with furosemide infusion, she has a history of ischemic cardiomyopathy, she was on Entresto and also metoprolol succinate before admission, the Entresto dose was increased to the maximum strength allowed, the metoprolol dose was increased from 25 mg to 50 mg, patient developed severe bradycardia ,initially she was on metoprolol succinate 50 mg 1 tablet 2 times a day the dose was readj usted down to 50 mg p.o. daily.She was seen in consultation with Dr. Daniel, cardiology, 2D echo was done the estimated ejection fraction was 20%. DR Daniel will make arrangement for patient to have cardiac defibrillator outpatient. She also have nephrotic range proteinuria.She was started on Aldactone on this admission, patient seems to have optimized inpatient care she is being discharged home today Physical Exam Vital Signs: Temp Pulse Resp BP Pulse Ox 97.4 F 71 20 130/75 H 100 06/11/19 11:40 06/11/19 11:40 06/11/19 11:40 06/11/19 11:40 06/11/19 11:40 Intake & Output 06/10/19 06/11/19 06/12/19 06:59 06:59 06:59 Intake Total 1020 1552 Output Total 1200 1400 Balance -180 152 Weight 99.6 kg 100.2 kg General appearance: PRESENT: no acute distress Eye exam: PRESENT: PERRLA Respiratory exam: PRESENT: clear to auscultation rodrigue Cardiovascular exam: PRESENT: +S1, +S2 GI/Abdominal exam: PRESENT: soft Neurological exam: PRESENT: alert, CN II-XII grossly intact Results Laboratory Results: WBC 4.8 10^3/uL (4.0-10.5) 06/05/19 21:40 RBC 4.89 10^6/uL (3.72-5.28) 06/05/19 21:40 Hgb 12.8 g/dL (12.0-15.5) 06/05/19 21:40 Hct 40.2 % (36.0-47.0) 06/05/19 21:40 MCV 82 fl (80-97) 06/05/19 21:40 MCH 26.2 pg (27.0-33.4) L 06/05/19 21:40 MCHC 31.9 g/dL (32.0-36.0) L 06/05/19 21:40 RDW 18.0 % (11.5-14.0) H 06/05/19 21:40 Plt Count 141 10^3/uL (150-450) L 06/05/19 21:40 Lymph % (Auto) 45.1 % (13-45) H 06/05/19 04:13 [place] % (Auto) 14.8 % (3-13) H 06/05/19 04:13 Eos % (Auto) 2.9 % (0-6) 06/05/19 04:13 Baso % (Auto) 0.5 % (0-2) 06/05/19 04:13 Absolute Neuts (auto) 1.9 10^3/uL (1.7-8.2) 06/05/19 04:13 Absolute Lymphs (auto) 2.3 10^3/uL (0.5-4.7) 06/05/19 04:13 Absolute Monos (auto) 0.8 10^3/uL (0.1-1.4) 06/05/19 04:13 Absolute Eos (auto) 0.2 10^3/uL (0.0-0.6) 06/05/19 04:13 Absolute Basos (auto) 0.0 10^3/uL (0.0-0.2) 06/05/19 04:13 Seg Neutrophils % 36.7 % (42-78) L 06/05/19 04:13 PT 13.3 SEC (11.4-15.4) 06/03/19 23:35 INR 1.01 06/03/19 23:35 INR (Anticoag Therapy) Cancelled 06/03/19 22:23 APTT 26.2 SEC (23.5-35.8) 06/03/19 23:35 Carbonic Acid 1.36 mmol/L (1.05-1.35) H 06/04/19 04:55 HCO3/H2CO3 Ratio 19:1 06/04/19 04:55 ABG pH 7.39 (7.35-7.45) 06/04/19 04:55 ABG pCO2 45.1 mmHg (35-45) H 06/04/19 04:55 ABG pO2 60.5 mmHg (80-100) L 06/04/19 04:55 ABG HCO3 26.7 mmol/L (20-24) H 06/04/19 04:55 ABG Total CO2 28.1 mmol/L (21-25) H 06/04/19 04:55 ABG O2 Saturation 90.9 % (94-98) L 06/04/19 04:55 ABG Base Excess 1.4 mmol/L 06/04/19 04:55 FiO2 2L 06/04/19 04:55 Sodium 134.6 mmol/L (137-145) L 06/10/19 04:14 Potassium 4.6 mmol/L (3.6-5.0) 06/10/19 04:14 Chloride 98 mmol/L (98-107) 06/10/19 04:14 Carbon Dioxide 28 mmol/L (22-30) 06/10/19 04:14 Anion Gap 9 (5-19) 06/10/19 04:14 BUN 24 mg/dL (7-20) H 06/10/19 04:14 Creatinine 1.44 mg/dL (0.52-1.25) H 06/10/19 04:14 Est GFR ( Amer) 44 (>60) L 06/10/19 04:14 Est GFR (MDRD) Non-Af 36 (>60) L 06/10/19 04:14 Glucose 254 mg/dL (75-110) H 06/10/19 04:14 POC Glucose 216 mg/dL (70-110) H 06/11/19 11:39 Hemoglobin A1c % 10.3 % (4.7-6.0) H 06/04/19 05:59 Calcium 8.7 mg/dL (8.4-10.2) 06/10/19 04:14 Magnesium 1.9 mg/dL (1.6-2.3) 06/04/19 05:59 Total Bilirubin 1.0 mg/dL (0.2-1.3) 06/03/19 14:09 Direct Bilirubin 0.2 mg/dL (0.0-0.4) 06/03/19 14:09 Neonat Total Bilirubin Not Reportable 06/03/19 14:09 Neonat Direct Bilirubin Not Reportable 06/03/19 14:09 Neonat Indirect Bili Not Reportable 06/03/19 14:09 AST 43 U/L (14-36) H 06/03/19 14:09 ALT 93 U/L (<35) H 06/03/19 14:09 Alkaline Phosphatase 187 U/L (38-126) H 06/03/19 14:09 Creatine Kinase 164 U/L (30-135) H 06/04/19 11:42 CK-MB (CK-2) 4.14 ng/mL (<4.55) 06/04/19 11:42 Troponin I 0.021 ng/mL 06/04/19 11:42 NT-Pro-B Natriuret Pep Cancelled 06/03/19 22:23 Total Protein 6.9 g/dL (6.3-8.2) 06/03/19 14:09 Albumin 3.5 g/dL (3.5-5.0) 06/03/19 14:09 Triglycerides 102 mg/dL (<150) 06/04/19 05:59 Cholesterol 244.58 mg/dL (0-200) H 06/04/19 05:59 LDL Cholesterol Direct 112 mg/dL (<100) H 06/04/19 05:59 VLDL Cholesterol 20.0 mg/dL (10-31) 06/04/19 05:59 HDL Cholesterol 89 mg/dL (>40) 06/04/19 05:59 Lipase 18.2 U/L (23-300) L 06/03/19 14:09 TSH 1.69 uIU/mL (0.47-4.68) 06/03/19 23:35 Free T4 1.54 ng/dL (0.78-2.19) 06/03/19 23:35 Urine Color YELLOW 06/08/19 04:50 Urine Appearance CLOUDY 06/08/19 04:50 Urine pH 7.0 (5.0-9.0) 06/08/19 04:50 Ur Specific [place] 1.008 06/08/19 04:50 Urine Protein 100 mg/dL (NEGATIVE) H 06/08/19 04:50 Urine Glucose (UA) NEGATIVE mg/dL (NEGATIVE) 06/08/19 04:50 Urine Ketones NEGATIVE mg/dL (NEGATIVE) 06/08/19 04:50 Urine Blood SMALL (NEGATIVE) H 06/08/19 04:50 Urine Nitrite NEGATIVE (NEGATIVE) 06/08/19 04:50 Urine Nitrite (Reflex) NEGATIVE (NEGATIVE) 06/03/19 13:44 Urine Bilirubin NEGATIVE (NEGATIVE) 06/08/19 04:50 Urine Urobilinogen NEGATIVE mg/dL (<2.0) 06/08/19 04:50 Ur Leukocyte Esterase LARGE (NEGATIVE) H 06/08/19 04:50 Leukocyte Esterase Rfl NEGATIVE (NEGATIVE) 06/03/19 13:44 Urine WBC (Auto) >182 /HPF 06/08/19 04:50 Urine RBC (Auto) 15 /HPF 06/08/19 04:50 U Hyaline Cast (Auto) 4 /LPF 06/03/19 13:44 Urine Bacteria (Auto) 3+ /HPF 06/08/19 04:50 Urine WBC (Reflex) 3 /HPF 06/03/19 13:44 Urine WBC Clumps MANY /HPF 06/08/19 04:50 Squamous Epi Cells Auto 1 /HPF 06/08/19 04:50 U Non-Squamous Epis Auto 2 /HPF 06/08/19 04:50 Urine Mucus (Auto) OCC /LPF 06/08/19 04:50 Urine Creatinine 94.4 mg/dL (15-278) 06/03/19 13:44 Protein/Creatinin Ratio 10.0 mg/mg (0.0-0.2) H 06/03/19 13:44 Urine Total Protein 944.5 mg/dL (<12) H 06/03/19 13:44 Urine Ascorbic Acid NEGATIVE (NEGATIVE) 06/08/19 04:50 06/03/19 06/03/19 06/03/19 14:09 14:09 22:23 CK-MB (CK-2) Cancelled Troponin I 0.032 Cancelled NT-Pro-B Natriuret Pep 47712 H Cancelled 06/03/19 06/04/19 06/04/19 23:35 05:59 11:42 CK-MB (CK-2) 5.92 H 4.39 4.14 Troponin I 0.034 0.033 0.021 NT-Pro-B Natriuret Pep Impressions: Chest X-Ray 06/03/19 11:40 IMPRESSION: CARDIOMEGALY AND VASCULAR CONGESTION WITH BASILAR ATELECTASIS AND BILATERAL PLEURAL EFFUSIONS. Chest X-Ray 06/07/19 06:00 IMPRESSION: Improving CHF. Stroke Is this a Stroke Patient?: No Acute Heart Failure - Is this a Heart Failure Patient?: Yes Documentation of LVEF assessment?: Yes LVEF < 40%?: Yes-if yes answer questions a through e a) Discharged on ACEI?: Yes b) Discharges on ARB?: Yes c) Discharged on ARNI?: Yes d) Discharged on evidence-based Beta vianey(carvedilol, sustained release metoprolol succinate, or bisoprolol)?: Yes e) For LVEF <35%, discharged on Aldosterone antagonist?: Yes
[2019-06-11 14:26] VITALS: BP 120/73
--- NOTE | 2019-06-11 23:02 | Progress Note ---
Provider Note Provider Note: CARDIOLOGY PROGRESS NOTE by Dr. Radha Terry on 06/11/2019. SUBJECTIVE: The patient states she has no further shortness of breath. There is no chest pain or discomfort. There is no PND orthopnea. Her leg edema is resolved. The patient has no arrhythmias seen on the monitor. The patient is anxious to go home. PHYSICAL EXAMINATION: The patient is moderately obese. In no acute distress. Selected Entries 06/11/19 11:40 Temperature 97.4 F Temperature Oral Source Pulse Rate 71 Respiratory 20 Rate Blood Pressure 130/75 H Blood Pressure 93 Mean BP Location Right Arm BP Position Supine O2 Sat by Pulse 100 Oximetry Oxygen Flow 2.00 Rate Oxygen Delivery Nasal Cannula Method IMPRESSION/RECOMMENDATION: 1. Acute on chronic combined systolic and diastolic heart failure. The patient is off the IV Lasix infusion. She is on IV Lasix at interval doses. She still has good urine output. She is tolerating the increased dose of Toprol-XL 50 mg p.o. every 12 hours and the maximum dose of Entresto twice a day. 2.Dilated cardiomyopathy with severely reduced LV ejection fraction of 25% 30% by echo of November 2018. Earlier in August her LV ejection fraction was severely reduced at 25%. Patient has been referred for AICD placement. The patient's Entresto has been increased to maximum dose and she is tolerating it. The patient is on Toprol-XL and intermittent IV Lasix. 3. Hypertension: Blood pressure well controlled. 4. Diabetes mellitus. 5. Obstructive sleep apnea by history. Continue CPAP at night 6. Medication noncompliance. Medications reviewed. Medical regimen and management plan discussed with attending provider. Medical decision making is of moderate complexity. 40 minutes spent as patient with more than 50% of time spent in direct patient care patient being discharged home. Will sign off and follow the patient in the o ffice.
== END 2019-06-11 15:17 | disposition home health service (06) | DRG 293 ==
LOC: ER 11:03 → EH 18:08 → 3N 23:15 → 3W 06-07 05:30
PROVIDERS: ADMIT Internal Medicine; ATTEND Internal Medicine
DX: I11.0 Hypertensive heart disease with heart failure (principal); I50.43 Acute on chronic combined systolic (congestive) and diastolic (congestive) heart failure; I42.0 Dilated cardiomyopathy; E11.21 Type 2 diabetes mellitus with diabetic nephropathy; I25.5 Ischemic cardiomyopathy; G47.33 Obstructive sleep apnea (adult) (pediatric); R00.1 Bradycardia, unspecified; M17.0 Bilateral primary osteoarthritis of knee; E78.5 Hyperlipidemia, unspecified; J44.9 Chronic obstructive pulmonary disease, unspecified; F32.9 Major depressive disorder, single episode, unspecified; G89.4 Chronic pain syndrome; I08.1 Rheumatic disorders of both mitral and tricuspid valves; E78.00 Pure hypercholesterolemia, unspecified; Z23 Encounter for immunization; Z91.19 Patient's noncompliance with other medical treatment and regimen; Z79.899 Other long term (current) drug therapy; Z91.14 Patient's other noncompliance with medication regimen; Z87.891 Personal history of nicotine dependence; Z79.4 Long term (current) use of insulin
CPT/HCPCS: 36415; 71045; 71046; 80048; 80053; 80061; 81001; 82550; 82553; 82570; 82803; 82962; 83036; 83690; 83735; 83880; 84156; 84439; 84443; 84484; 85025; 85610; 85730; 87086; 90686; 93005; 93010; 93306; 99285; J1644; J1815; J1940; J3490; J7050

== ENCOUNTER 2019-07-08 12:04 | Observation (INO) | payer MEDICARE, MEDICAID ==
[2019-07-08 13:49] LABS: HEMATOCRIT 40.1 % (36.0-47.0); HEMOGLOBIN 13.1 g/dL (12.0-15.5); MEAN CORPUSCULAR HEMOGLOBIN 25.8 pg (27.0-33.4); MEAN CORPUSCULAR HGB CONC 32.7 g/dL (32.0-36.0); MEAN CORPUSCULAR VOLUME 79 fl (80-97); PLATELET COUNT 208 10^3/uL (150-450); RED BLOOD COUNT 5.07 10^6/uL (3.72-5.28); RED CELL DISTRIBUTION WIDTH 18.6 % (11.5-14.0); WHITE BLOOD COUNT 6.7 10^3/uL (4.0-10.5)
[2019-07-08 14:03] LABS: ALBUMIN 3.2 g/dL (3.5-5.0); ALKALINE PHOSPHATASE 79 U/L (38-126); ANION GAP 6 (5-19); ASPARTATE AMINO TRANSFERASE 45 U/L (14-36); BILIRUBIN,TOTAL 0.4 mg/dL (0.2-1.3); BLOOD UREA NITROGEN 42 mg/dL (7-20); CALCIUM 9.2 mg/dL (8.4-10.2); CARBON DIOXIDE 29 mmol/L (22-30); CHLORIDE 102 mmol/L (98-107); POTASSIUM 3.5 mmol/L (3.6-5.0); TOTAL PROTEIN 6.7 g/dL (6.3-8.2)
[2019-07-08 14:14] LABS: GLUCOSE 409 mg/dL (75-110)
[2019-07-08] MEDS ORDERED: DEXTROSE 40% GEL 15 GM TUBE X 2 PO PRN (15:00)
[2019-07-08] MEDS ORDERED: DEXTROSE 50%-WATER SYRINGE 25 GM/50 ML DOSE IV PRN (15:00)
[2019-07-08] MEDS ORDERED: DEXTROSE 40% GEL 15 GM TUBE PO PRN (15:00)
[2019-07-08] MEDS ORDERED: DEXTROSE 50%-WATER SYRINGE 12.5 GM/25 ML DOSE IV PRN (15:00)
[2019-07-08] MEDS ORDERED: GLUCAGON,HUMAN RECOMB 1 MG INJ IM PRN (15:00)
[2019-07-08] MEDS ORDERED: DOPAMINE HCL 800 MG/D5W 250 ML IV PRN (15:23)
[2019-07-08 15:50] LABS: APPEARANCE,URINE CLEAR; BILIRUBIN,URINE NEGATIVE (NEGATIVE); COLOR,URINE STRAW; GLUCOSE, URINE >=500 mg/dL (NEGATIVE); KETONES,URINE NEGATIVE (NEGATIVE); LEUKOCYTE ESTERASE,URINE SMALL (NEGATIVE); NITRITE,URINE NEGATIVE (NEGATIVE); PROTEIN,URINE 100 mg/dL (NEGATIVE); URINE SPECIFIC GRAVITY 1.017; UROBILINOGEN,URINE NEGATIVE mg/dL (<2.0)
[2019-07-08] MEDS ORDERED: INSULIN LISPRO 100 UNIT/ML 3 ML VIAL SUBCUT SCH (16:00)
[2019-07-08 16:59] VITALS: BP 116/70
--- NOTE | 2019-07-08 18:13 | PDOC H&P ---
History of Present Illness Admission Date/PCP: 07/08/19 12:04 TRAVIS SUBRAMANIAN MD History of Present Illness: EDUARDA JARRELL is a 68 year old female, She has a history of ischemic cardiom yopathy, she recently had implantation of a drug eluting stent in the left anterior descending coronary artery, she has a LifeVest in place, she came to the office today for follow-up evaluation. The blood pressure recorded, sitting, was 80 systolic, standing was 60 systolic, she told me that the blood pressure recorded at home was 90 systolic. She was not symptomatic I was particularly concerned because she recently was started on Eliquis because she has left ventricle apex mural thrombus and I thought blood loss could be responsible for the low blood pressure recorded, she was not particularly in distress. I felt patient needed to be admitted into the hospital, she was admitted directly into the hospital but the blood pressure recorded in the hospital was normal, It was 122/70, there was no evidence of blood loss, no GI bleed. The hemoglobin was 13., She was found to have hyperglycemia, she has a history of diabetes mellitus Past Medical History Cardiac Medical History: Reports: Congestive Heart Failure, Hyperlipidema, Hypertension Pulmonary Medical History: Reports: Asthma, Chronic Obstructive Pulmonary Diseas e (COPD) Endocrine Medical History: Reports: Diabetes Mellitus Type 2 GI Medical History: Musculoskeltal Medical History: Reports: Arthritis Psychiatric Medical History: Reports: Depression Past Surgical History Past Surgical History: Reports: Appendectomy, Section - x2, Orthopedic Surgery - toe Social History Smoking Status: Former Smoker Cigarettes Packs Per Day: 1 Number of Years Smokin Last Time Smoked: 20 Years Ago Frequency of Alcohol Use: None Hx Recreational Drug Use: No Drugs: None Hx Prescription Drug Abuse: No Family History Family History: CAD, DM, Hypertension. denies: Malignancy Parental Family History Reviewed: Yes Children Family History Reviewed: Yes Sibling(s) Family History Reviewed.: Yes Medication/Allergy Home Medications: Atorvastatin Calcium [Lipitor 40 mg Tablet] 40 mg PO DAILY 11/23/18 Insulin Glargine/Lixisenatide [Soliqua 100 Unit-33 Mcg/ml Pen] 30 units SQ QAM 06/03/19 Metoprolol Succinate [Toprol Xl 25 mg Tab.sr] 25 mg PO DAILY 06/04/19 Oxycodone HCl/Acetaminophen [Oxycodone-Acetaminophen 10-325] 1 each PO QIDP PRN 06/04/19 Furosemide [Lasix Inj/Pf 40 mg/4 ml Sdv] 40 mg PO Q12 #60 vial 06/11/19 Metoprolol Succinate [Toprol Xl 50 mg Tab.sr] 50 mg PO DAILY #90 tab.sr.24h 06/11/19 Sacubitril/Valsartan [Entresto 97 mg/103 mg Tablet] 1 tab PO Q12 #90 tablet 06/11/19 Spironolactone [Aldactone 25 mg Tablet] 25 mg PO DAILY #90 tablet 06/11/19 Allergies/Adverse Reactions: No Known Allergies Allergy (Verified 11/22/18 17:34) Review of Systems Constitutional: ABSENT: chills, fever(s), headache(s), weight gain, weight loss Eyes: ABSENT: visual disturbances Ears: ABSENT: hearing changes Cardiovascular: ABSENT: chest pain, dyspnea on exertion, edema, orthropnea, palpitations Respiratory: ABSENT: cough, hemoptysis Gastrointestinal: ABSENT: abdominal pain, constipation, diarrhea, hematemesis, hematochezia, nausea, vomiting Genitourinary: ABSENT: dysuria, hematuria Musculoskeletal: ABSENT: joint swelling Integumentary: ABSENT: rash, wounds Neurological: ABSENT: abnormal gait, abnormal speech, confusion, dizziness, focal weakness, syncope Psychiatric: ABSENT: anxiety, depression, homidical ideation, suicidal ideation Endocrine: ABSENT: cold intolerance, heat intolerance, menstrual abnormalities, polydipsia, polyuria Hematologic/Lymphatic: ABSENT: easy bleeding, easy bruising, lymphadenopathy Physical Exam Vital Signs: Temp Pulse Resp BP Pulse Ox 97.6 F 62 18 122/70 99 07/08/19 16:53 07/08/19 16:53 07/08/19 16:53 07/08/19 16:53 07/08/19 16:53 Intake & Output 07/07/19 07/08/19 07/09/19 06:59 06:59 06:59 Weight 92.27 kg General appearance: PRESENT: no acute distress, well-developed, well-nourished Head exam: PRESENT: atraumatic, normocephalic Eye exam: PRESENT: conjunctiva pink, EOMI, PERRLA Ear exam: PRESENT: normal external ear exam Mouth exam: PRESENT: moist, tongue midline Neck exam: PRESENT: full ROM Respiratory exam: PRESENT: clear to auscultation rodrigue Cardiovascular exam: PRESENT: RRR, +S1, +S2 Pulses: PRESENT: normal dorsalis pedis pul, +2 pedal pulses bilateral Vascular exam: PRESENT: normal capillary refill GI/Abdominal exam: PRESENT: normal bowel sounds, soft Rectal exam: PRESENT: deferred Neurological exam: PRESENT: alert, awake, oriented to person, oriented to place, oriented to time, oriented to situation, CN II-XII grossly intact Psychiatric exam: PRESENT: appropriate affect, normal mood Skin exam: PRESENT: dry, intact, warm Results Laboratory Results: 07/08/19 13:37 07/08/19 13:37 07/08/19 07/08/19 07/08/19 13:37 13:37 15:25 WBC 6.7 RBC 5.07 Hgb 13.1 Hct 40.1 MCV 79 L MCH 25.8 L MCHC 32.7 RDW 18.6 H Plt Count 208 Sodium 136.6 L Potassium 3.5 L Chloride 102 Carbon Dioxide 29 Anion Gap 6 BUN 42 H Creatinine 1.41 H Est GFR ( Amer) 45 L Glucose 409 H* Calcium 9.2 Total Bilirubin 0.4 AST 45 H Alkaline Phosphatase 79 Total Protein 6.7 Albumin 3.2 L Urine Color STRAW Urine Appearance CLEAR Urine pH 6.0 Ur Specific [place] 1.017 Urine Protein 100 H Urine Glucose (UA) >=500 H Urine Ketones NEGATIVE Urine Blood SMALL H Urine Nitrite NEGATIVE Ur Leukocyte Esterase SMALL H Urine WBC (Auto) 6 Urine RBC (Auto) 1 Assessment & Plan - Diagnosis (1) Ischemic cardiomyopathy Is this a current diagnosis for this admission?: Yes Plan: The blood pressure recorded in the hospital is normal, the recorded pressure in the office was low most likely it was related to medication usage, just before she came to the office she took her medication for the control blood pressure. I do not see any indication at this time for inpatient care she will be discharged home. (2) Coronary artery disease Qualifiers: Coronary Disease-Associated Artery/Lesion type: [place] artery [place] vs. 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
--- NOTE | 2019-07-08 18:18 | PDOC DISCHARGE SUMMARY ---
Impression - Admit/DC Date/PCP Admission Date/Primary Care Provider: 07/08/19 12:04 TRAVIS SUBRAMANIAN MD Discharge Date: 07/08/19 - Discharge Diagnosis (1) Ischemic cardiomyopathy Is this a current diagnosis for this admission?: Yes (2) Coronary artery disease Is this a current diagnosis for this admission?: Yes (3) T2DM (type 2 diabetes mellitus) Is this a current diagnosis for this admission?: Yes - Additional Information Discharge Diet: Diabetic Discharge Activity: Activity As Tolerated, Balance Activity w/Rest Referrals: TRAVIS SUBRAMANIAN MD [Primary Care Provider] - 07/15/19 10:00 am Home Medications: RX: Atorvastatin Calcium [Lipitor 40 mg Tablet] 40 mg PO DAILY 11/23/18 RX: Insulin Glargine/Lixisenatide [Soliqua 100 Unit-33 Mcg/ml Pen] 30 units SQ QAM 06/03/19 RX: Metoprolol Succinate [Toprol Xl 25 mg Tab.sr] 25 mg PO DAILY 06/04/19 RX: Oxycodone HCl/Acetaminophen [Oxycodone-Acetaminophen 10-325] 1 each PO QIDP PRN 06/04/19 RX: Furosemide [Lasix Inj/Pf 40 mg/4 ml Sdv] 40 mg PO Q12 #60 vial 06/11/19 RX: Metoprolol Succinate [Toprol Xl 50 mg Tab.sr] 50 mg PO DAILY #90 tab.sr.24h 06/11/19 RX: Sacubitril/Valsartan [Entresto 97 mg/103 mg Tablet] 1 tab PO Q12 #90 tablet 06/11/19 RX: Spironolactone [Aldactone 25 mg Tablet] 25 mg PO DAILY #90 tablet 06/11/19 History of Present Illiness History of Present Illness: EDUARDA JARRELL is a 68 year old female, She has a history of ischemic cardiomyopathy, she recently had implantation of a drug eluting stent in the left anterior descending coronary artery, she has a LifeVest in place, she came to the office today for follow-up evaluation. The blood pressure recorded, sitting, was 80 systolic, standing was 60 systolic, she told me that the blood pressure recorded at home was 90 systolic. She was not symptomatic I was particularly concerned because she recently was started on Eliquis because she has left ventricle apex mural thrombus and I thought blood loss could be responsible for the low blood pressure recorded, she was not particularly in distress. I felt patient needed to be admitted into the hospital, she was admitted directly into the hospital but the blood pressure recorded in the hospital was normal, It was 122/70, there was no evidence of blood loss, no GI bleed. The hemoglobin was 13., She was found to have hyperglycemia, she has a history of diabetes mellitus Hospital Course Hospital Course: See H&P for details, she was admitted for the management of low blood pressure, but the blood pressure recorded in the hospital was normal, she was found to have hyperglycemia this was treated according to protocol. She will be discharged home today she is also requesting personal care service, discharge planning making plans for that Physical Exam Vital Signs: Temp Pulse Resp BP Pulse Ox 97.6 F 62 18 122/70 99 07/08/19 16:53 07/08/19 16:53 07/08/19 16:53 07/08/19 16:53 07/08/19 16:53 Intake & Output 07/07/19 07/08/19 07/09/19 06:59 06:59 06:59 Weight 92.27 kg General appearance: PRESENT: no acute distress Eye exam: PRESENT: PERRLA Respiratory exam: PRESENT: clear to auscultation rodrigue Cardiovascular exam: PRESENT: +S1, +S2 GI/Abdominal exam: PRESENT: soft Neurological exam: PRESENT: alert, CN II-XII grossly intact Results Laboratory Results: WBC 6.7 10^3/uL (4.0-10.5) 07/08/19 13:37 RBC 5.07 10^6/uL (3.72-5.28) 07/08/19 13:37 Hgb 13.1 g/dL (12.0-15.5) 07/08/19 13:37 Hct 40.1 % (36.0-47.0) 07/08/19 13:37 MCV 79 fl (80-97) L 07/08/19 13:37 MCH 25.8 pg (27.0-33.4) L 07/08/19 13:37 MCHC 32.7 g/dL (32.0-36.0) 07/08/19 13:37 RDW 18.6 % (11.5-14.0) H 07/08/19 13:37 Plt Count 208 10^3/uL (150-450) 07/08/19 13:37 Sodium 136.6 mmol/L (137-145) L 07/08/19 13:37 Potassium 3.5 mmol/L (3.6-5.0) L 07/08/19 13:37 Chloride 102 mmol/L (98-107) 07/08/19 13:37 Carbon Dioxide 29 mmol/L (22-30) 07/08/19 13:37 Anion Gap 6 (5-19) 07/08/19 13:37 BUN 42 mg/dL (7-20) H 07/08/19 13:37 Creatinine 1.41 mg/dL (0.52-1.25) H 07/08/19 13:37 Est GFR ( Amer) 45 (>60) L 07/08/19 13:37 Est GFR (MDRD) Non-Af 37 (>60) L 07/08/19 13:37 Glucose 409 mg/dL (75-110) H* 07/08/19 13:37 POC Glucose 414 mg/dL (70-110) H* 07/08/19 16:09 Calcium 9.2 mg/dL (8.4-10.2) 07/08/19 13:37 Total Bilirubin 0.4 mg/dL (0.2-1.3) 07/08/19 13:37 Direct Bilirubin 0.0 mg/dL (0.0-0.4) 07/08/19 13:37 Neonat Total Bilirubin Not Reportable 07/08/19 13:37 Neonat Direct Bilirubin Not Reportable 07/08/19 13:37 Neonat Indirect Bili Not Reportable 07/08/19 13:37 AST 45 U/L (14-36) H 07/08/19 13:37 ALT 16 U/L (<35) 07/08/19 13:37 Alkaline Phosphatase 79 U/L (38-126) 07/08/19 13:37 Total Protein 6.7 g/dL (6.3-8.2) 07/08/19 13:37 Albumin 3.2 g/dL (3.5-5.0) L 07/08/19 13:37 Urine Color STRAW 07/08/19 15:25 Urine Appearance CLEAR 07/08/19 15:25 Urine pH 6.0 (5.0-9.0) 07/08/19 15:25 Ur Specific [place] 1.017 07/08/19 15:25 Urine Protein 100 mg/dL (NEGATIVE) H 07/08/19 15:25 Urine Glucose (UA) >=500 mg/dL (NEGATIVE) H 07/08/19 15:25 Urine Ketones NEGATIVE mg/dL (NEGATIVE) 07/08/19 15:25 Urine Blood SMALL (NEGATIVE) H 07/08/19 15:25 Urine Nitrite NEGATIVE (NEGATIVE) 07/08/19 15:25 Urine Bilirubin NEGATIVE (NEGATIVE) 07/08/19 15:25 Urine Urobilinogen NEGATIVE mg/dL (<2.0) 07/08/19 15:25 Ur Leukocyte Esterase SMALL (NEGATIVE) H 07/08/19 15:25 Urine WBC (Auto) 6 /HPF 07/08/19 15:25 Urine RBC (Auto) 1 /HPF 07/08/19 15:25 Squamous Epi Cells Auto 2 /HPF 07/08/19 15:25 Urine Mucus (Auto) RARE /LPF 07/08/19 15:25 Urine Ascorbic Acid NEGATIVE (NEGATIVE) 07/08/19 15:25 Stroke Is this a Stroke Patient?: No Acute Heart Failure - Is this a Heart Failure Patient?: No
== END 2019-07-08 18:00 | disposition home or self-care (01) ==
LOC: INTOOBSV 12:04 → 3W 12:04
PROVIDERS: ADMIT Internal Medicine; ATTEND Internal Medicine
DX: I25.5 Ischemic cardiomyopathy (principal); I25.10 Atherosclerotic heart disease of native coronary artery without angina pectoris; E11.65 Type 2 diabetes mellitus with hyperglycemia; E11.21 Type 2 diabetes mellitus with diabetic nephropathy; I51.3 Intracardiac thrombosis, not elsewhere classified; I11.0 Hypertensive heart disease with heart failure; I50.9 Heart failure, unspecified; Z95.5 Presence of coronary angioplasty implant and graft; Z79.899 Other long term (current) drug therapy; Z79.4 Long term (current) use of insulin; Z87.891 Personal history of nicotine dependence; Z82.49 Family history of ischemic heart disease and other diseases of the circulatory system; Z95.811 Presence of heart assist device
CPT/HCPCS: 36415; 82962; 85027; 80076; 80048; 81001; A9270; J1815

== ENCOUNTER 2020-02-02 14:37 | Inpatient (IN) | payer MEDICARE, MEDICAID ==
--- NOTE | 2020-02-02 15:44 | ER Document Report ---
ED Medical Screen (RME) - General Chief Complaint: Direct Admit/Private MD Stated Complaint: DIRECT ADMIT Time Seen by Provider: 02/02/20 15:38 Primary Care Provider: TRAVIS SUBRAMANIAN MD [Primary Care Provider] - Follow up as needed Mode of Arrival: Wheelchair Information source: Patient Notes: 69-year-old female presented to ED for direct admit for shortness of breath acute on chronic. Dr. Subramanian is admitting her he did put orders in already for her admission. There is no bed available in the hospital as yet. She states she does have COPD and congestive heart failure and she has a defibrillator. She is to be admitted when a bed is available. All of her's are being inputted by the construction secretary. She states she is very short of breath and has trouble breathing to these mask. I have greeted and performed a rapid initial assessment of this patient. A comprehensive ED assessment and evaluation of the patient, analysis of test results and completion of medical decision making process will be conducted by an additional ED providers. TRAVEL OUTSIDE OF THE [place] IN LAST 30 DAYS: No - Related Data Allergies/Adverse Reactions: No Known Allergies Allergy (Verified 11/22/18 17:34) Past Medical History - Past Medical History Cardiac Medical History: Reports: Hx Congestive Heart Failure, Hx Hypercholesterolemia, Hx Hypertension Pulmonary Medical History: Reports: Hx Asthma, Hx COPD Denies: Hx Tuberculosis Neurological Medical History: Denies: Hx Seizures Endocrine Medical History: Reports: Hx Diabetes Mellitus Type 2. Denies: Hx Diabetes Mellitus Type 1, Hx Hyperthyroidism, Hx Hypothyroidism Renal/ Medical History: Denies: Hx Peritoneal Dialysis GI Medical History: Denies: Hx Cirrhosis, Hx Crohn's Disease, Hx Hepatitis, Hx Ulcerative Colitis Musculoskeltal Medical History: Reports Hx Arthritis, Denies Hx Gout Skin Medical History: Denies Hx Eczema, Denies Hx Psoriasis Psychiatric Medical History: Reports: Hx Depression Infectious Medical History: Denies: Hx Hepatitis Past Surgical History: Reports: Hx Appendectomy, Hx Section - x2, Hx Orthopedic Surgery - toe. Denies: Hx Hysterectomy - Immunizations Immunizations up to date: Yes Hx Diphtheria, Pertussis, Tetanus Vaccination: Yes - 2011 Physical Exam - Vital signs Vitals: Temp Pulse Resp BP Pulse Ox 98.0 F 83 20 159/81 H 94 02/02/20 15:39 02/02/20 15:39 02/02/20 15:39 02/02/20 15:39 02/02/20 15:39 Course - Vital Signs Vital signs: Temp Pulse Resp BP Pulse Ox 98.0 F 83 20 159/81 H 94 02/02/20 15:39 02/02/20 15:39 02/02/20 15:39 02/02/20 15:39 02/02/20 15:39 Doctor's Discharge - Discharge Referrals: TRAVIS SUBRAMANIAN MD [Primary Care Provider] - Follow up as needed
[2020-02-02 17:00] LABS: ABSOLUTE EOSINOPHILS # (AUTO) 0.2 10^3/uL (0.0-0.6); ABSOLUTE LYMPHOCYTES (AUTO) 3.3 10^3/uL (0.5-4.7); ABSOLUTE MONOCYTES (AUTO) 0.7 10^3/uL (0.1-1.4); BASOPHILS % (AUTO) 0.6 % (0-2); EOSINOPHILS % (AUTO) 2.3 % (0-6); HEMATOCRIT 39.5 % (36.0-47.0); HEMOGLOBIN 12.5 g/dL (12.0-15.5); LYMPHOCYTES % (AUTO) 40.6 % (13-45); MEAN CORPUSCULAR HEMOGLOBIN 26.8 pg (27.0-33.4); MEAN CORPUSCULAR HGB CONC 31.7 g/dL (32.0-36.0); MEAN CORPUSCULAR VOLUME 84 fl (80-97); MONOCYTES % (AUTO) 7.9 % (3-13); PLATELET COUNT 222 10^3/uL (150-450); RED BLOOD COUNT 4.68 10^6/uL (3.72-5.28); RED CELL DISTRIBUTION WIDTH 16.8 % (11.5-14.0); SEGMENTED NEUTROPHILS % (AUTO) 48.6 % (42-78); TOTAL CELLS COUNTED % (AUTO) 100 %; WHITE BLOOD COUNT 8.2 10^3/uL (4.0-10.5)
[2020-02-02 17:10] LABS: APPEARANCE,URINE CLOUDY; BILIRUBIN,URINE NEGATIVE (NEGATIVE); COLOR,URINE YELLOW; GLUCOSE, URINE >=500 mg/dL (NEGATIVE); KETONES,URINE NEGATIVE (NEGATIVE); LEUKOCYTE ESTERASE,URINE SMALL (NEGATIVE); NITRITE,URINE NEGATIVE (NEGATIVE); PROTEIN,URINE >=500 mg/dL (NEGATIVE); URINE SPECIFIC GRAVITY 1.021; UROBILINOGEN,URINE NEGATIVE mg/dL (<2.0)
[2020-02-02 17:23] LABS: ALBUMIN 3.5 g/dL (3.5-5.0); ALKALINE PHOSPHATASE 112 U/L (38-126); ANION GAP 9 (5-19); ASPARTATE AMINO TRANSFERASE 24 U/L (14-36); BILIRUBIN,DIRECT 0.1 mg/dL (0.0-0.4); BILIRUBIN,TOTAL 0.6 mg/dL (0.2-1.3); BLOOD UREA NITROGEN 33 mg/dL (7-20); CALCIUM 9.7 mg/dL (8.4-10.2); CARBON DIOXIDE 25 mmol/L (22-30); CHLORIDE 112 mmol/L (98-107); POTASSIUM 3.7 mmol/L (3.6-5.0); TOTAL PROTEIN 6.8 g/dL (6.3-8.2)
[2020-02-02 17:29] LABS: GLUCOSE 59 mg/dL (75-110)
[2020-02-02 17:39] LABS: FREE T3 3.02 pg/mL (2.77-5.27); FREE T4 (FREE THYROXINE) 1.09 ng/dL (0.78-2.19)
[2020-02-02 17:53] LABS: THYROID STIMULATING HORMONE 1.64 uIU/mL (0.47-4.68)
--- NOTE | 2020-02-02 18:55 | RADIOLOGY REPORT (SQ) ---
EXAM DESCRIPTION: CHEST SINGLE VIEW IMAGES COMPLETED DATE/TIME: 02/02/2020 5:07 pm REASON FOR STUDY: sob COMPARISON: 06/07/2019 EXAM PARAMETERS: NUMBER OF VIEWS: One view. TECHNIQUE: Single frontal radiographic view of the chest acquired. RADIATION DOSE: NA LIMITATIONS: None. FINDINGS: LUNGS AND PLEURA: Ill-defined opacification in the left base. The left hemidiaphragm is i ndistinct. MEDIASTINUM AND HILAR STRUCTURES: No masses. Contour normal. HEART AND VASCULAR STRUCTURES: Normal size. BONES: No acute findings. HARDWARE: Pacemaker/defibrillator. OTHER: No other significant finding. IMPRESSION: Cannot exclude left lower lobe pneumonia. TECHNICAL DOCUMENTATION: JOB ID: [id number] 2010 [employer]- All Rights Reserved Reading location - IP/workstation name: [email or web address]
[2020-02-02] MEDS ORDERED: TEMAZEPAM 7.5 MG CAPSULE PO PRN (21:46)
--- NOTE | 2020-02-02 21:56 | PDOC H&P ---
History of Present Illness Admission Date/PCP: 02/02/20 16:10 TRAVIS SUBRAMANIAN MD History of Present Illness: EDUARDA JARRELL is a 69 year old female, Patient came to the office today for evaluation of shortness of breath, she said she is very short of breath, she has orthopnea, she cannot walk any distance without getting dyspneic.She has a history of chronic systolic and diastolic heart failure, coronary artery disease, nephrotic range proteinuria,Poorly controlled diabetes mellitus.CAT scan of the chest without contrast was done, it demonstrated moderate bilateral pleural effusion right more than left, bilateral atelectasis and consolidation is similar in appearance and extent to prior examination. Additionally, there are scattered areas of groundglass opacity bilaterally. Multiple mildly enlarged mediastinal lymph nodes similar in appearance.She is medically and device therapy optimized, status post AICD/pacemaker implantation Past Medical History Cardiac Medical History: Reports: Atrial Fibrillation, Congestive Heart Failure, Hyperlipidema, Hypertension, Other - Chronic systolic and diastolic heart failure Pulmonary Medical History: Reports: Asthma, Chronic Obstructive Pulmonary Disease (COPD) Endocrine Medical History: Reports: Diabetes Mellitus Type 2 Renal/ Medical History: Reports: Chronic Kidney Disease, Other - Chronic kidney disease, nephrotic syndrome GI Medical History: Musculoskeltal Medical History: Reports: Arthritis Psychiatric Medical History: Reports: Depression Past Surgical History Past Surgical History: Reports: Appendectomy, Section - x2, Orthopedic Surgery - toe Social History Smoking Status: Never Smoker Frequency of Alcohol Use: None Hx Recreational Drug Use: No Drugs: None Hx Prescription Drug Abuse: No Family History Family History: CAD, DM, Hypertension Parental Family History Reviewed: Yes Children Family History Reviewed: Yes Sibling(s) Family History Reviewed.: Yes Medication/Allergy Home Medications: Atorvastatin Calcium [Lipitor 40 mg Tablet] 40 mg PO DAILY 11/23/18 Insulin Glargine/Lixisenatide [Soliqua 100 Unit-33 Mcg/ml Pen] 30 units SQ QAM 06/03/19 Oxycodone HCl/Acetaminophen [Oxycodone-Acetaminophen 10-325] 1 each PO QIDP PRN 06/04/19 Metoprolol Succinate [Toprol Xl 50 mg Tab.sr] 50 mg PO DAILY #90 tab.sr.24h 06/11/19 Sacubitril/Valsartan [Entresto 97 mg/103 mg Tablet] 1 tab PO Q12 #90 tablet 06/11/19 Spironolactone [Aldactone 25 mg Tablet] 25 mg PO DAILY #90 tablet 06/11/19 Albuterol Sulfate [Albuterol Sulfate Hfa] 2 puff IH Q6HP PRN 02/03/20 Apixaban [Eliquis 5 mg Tablet] 5 mg PO BID 02/03/20 Clopidogrel Bisulfate [Plavix 75 mg Tablet] 75 mg PO DAILY 02/03/20 Dapagliflozin Propanediol [Farxiga] 10 mg PO DAILY 02/03/20 Furosemide [Lasix 40 mg Tablet] 40 mg PO QAM 02/03/20 Gabapentin [Neurontin 400 mg Capsule] 800 mg PO Q8 02/03/20 Glimepiride [Amaryl 4 mg Tablet] 4 mg PO DAILY 02/03/20 Insulin Aspart [Novolog Flexpen] 0 unit PO .SLIDING SCALE 02/03/20 Omeprazole 40 mg PO DAILY 02/03/20 Allergies/Adverse Reactions: No Known Allergies Allergy (Verified 11/22/18 17:34) Review of Systems Constitutional: PRESENT: anorexia, fatigue Eyes: ABSENT: visual disturbances Ears: ABSENT: hearing changes Cardiovascular: PRESENT: dyspnea on exertion, edema, orthropnea Respiratory: PRESENT: cough, dyspnea Gastrointestinal: ABSENT: abdominal pain, constipation, diarrhea, hematemesis, hematochezia, nausea, vomiting Genitourinary: ABSENT: dysuria, hematuria Musculoskeletal: ABSENT: joint swelling Integumentary: ABSENT: rash, wounds Neurological: PRESENT: numbness, paresthesias. ABSENT: as per HPI, abnormal gait, abnormal movements, abnormal speech, confusion, convulsions, dizziness, focal weakness, frequent falls, lack of coordination, memory loss, restless legs, syncope, tingling, tremor(s), vertigo, weakness, other Psychiatric: ABSENT: anxiety, depression, homidical ideation, suicidal ideation Endocrine: ABSENT: cold intolerance, heat intolerance, menstrual abnormalities, polydipsia, polyuria Hematologic/Lymphatic: ABSENT: easy bleeding, easy bruising, lymphadenopathy Physical Exam Vital Signs: Temp Pulse Resp BP Pulse Ox 99.3 F 72 16 134/68 H 95 02/02/20 19:34 02/02/20 19:34 02/02/20 19:34 02/02/20 19:34 02/02/20 19:34 Intake & Output 02/01/20 02/02/20 02/03/20 06:59 06:59 06:59 Weight 97.522 kg General appearance: PRESENT: no acute distress Head exam: PRESENT: atraumatic, normocephalic Eye exam: PRESENT: PERRLA Ear exam: PRESENT: normal external ear exam Mouth exam: PRESENT: moist, tongue midline Neck exam: PRESENT: full ROM. ABSENT: carotid bruit, JVD, lymphadenopathy, thyromegaly Respiratory exam: PRESENT: decreased breath sounds Cardiovascular exam: PRESENT: RRR, +S1, +S2, systolic murmur Vascular exam: PRESENT: normal capillary refill GI/Abdominal exam: PRESENT: normal bowel sounds, soft Rectal exam: PRESENT: deferred Extremities exam: PRESENT: pedal edema, other - There is lower extremity edema Neurological exam: PRESENT: alert, CN II-XII grossly intact Psychiatric exam: PRESENT: appropriate affect, normal mood Skin exam: PRESENT: dry, intact, warm Results Laboratory Results: 02/02/20 16:38 02/02/20 16:38 02/02/20 02/02/20 02/02/20 16:38 16:38 16:38 WBC 8.2 RBC 4.68 Hgb 12.5 Hct 39.5 MCV 84 MCH 26.8 L MCHC 31.7 L RDW 16.8 H Plt Count 222 Seg Neutrophils % 48.6 Sodium 145.6 H Potassium 3.7 Chloride 112 H Carbon Dioxide 25 Anion Gap 9 BUN 33 H Creatinine 1.50 H Est GFR ( Amer) 42 L Glucose 59 L Calcium 9.7 Total Bilirubin 0.6 AST 24 Alkaline Phosphatase 112 Total Protein 6.8 Albumin 3.5 TSH 1.64 Free T4 1.09 Free T3 pg/mL 3.02 Urine Color Urine Appearance Urine pH Ur Specific [place] Urine Protein Urine Glucose (UA) Urine Ketones Urine Blood Urine Nitrite Ur Leukocyte Esterase Urine WBC (Auto) Urine RBC (Auto) 02/02/20 16:38 WBC RBC Hgb Hct MCV MCH MCHC RDW Plt Count Seg Neutrophils % Sodium Potassium Chloride Carbon Dioxide Anion Gap BUN Creatinine Est GFR ( Amer) Glucose Calcium Total Bilirubin AST Alkaline Phosphatase Total Protein Albumin TSH Free T4 Free T3 pg/mL Urine Color YELLOW Urine Appearance CLOUDY Urine pH 5.0 Ur Specific [place] 1.021 Urine Protein >=500 H Urine Glucose (UA) >=500 H Urine Ketones NEGATIVE Urine Blood NEGATIVE Urine Nitrite NEGATIVE Ur Leukocyte Esterase SMALL H Urine WBC (Auto) 153 Urine RBC (Auto) 4 02/02/20 16:38 NT-Pro-B Natriuret Pep 99120 H Impressions: Chest X-Ray 02/02/20 15:39 IMPRESSION: Cannot exclude left lower lobe pneumonia. Assessment & Plan - Diagnosis (1) Acute on chronic combined systolic (congestive) and diastolic (congestive) heart failure Is this a current diagnosis for this admission?: Yes Plan: Patient symptoms is due to combination of factors including acute systolic heart failure, nephrotic range proteinuria/nephrotic syndrome.There is bilateral pleural effusion, thoracentesis is ordered to remove fluid, she may need a low- dose Lasix infusion (2) Chronic kidney disease, stage 3 unspecified Qualifiers: Chronic kidney disease stage 3 subtype: stage 3a (GFR 45-59) Qualified Code(s): N18.31 - Chronic kidney disease, stage 3a Is this a current diagnosis for this admission?: Yes (3) Pneumonia Qualifiers: Pneumonia type: due to unspecified organism Laterality: unspecified laterality Lung location: unspecified part of lung Qualified Code(s): J18.9 - Pneumonia, unspecified organism Is this a current diagnosis for this admission?: Yes Plan: I cannot completely rule out SARS-CoV-2 infection, patient will be isolated, and screen for the infection, she will also be started on IV antibiotic to cover community-acquired pathogens (4) Nephrotic syndrome Is this a current diagnosis for this admission?: Yes Plan: The urine protein creatinine ratio is 15.7, consistent with nephrotic syndrome (5) T2DM (type 2 diabetes mellitus) Qualifiers: Diabetes mellitus terminal carman insulin use: with alf use Diabetes mellitus complication status: with kidney complications Diabetes mellitus complication detail: with nephropathy Qualified Code(s): E11.21 - Type 2 diabetes mellitus with diabetic nephropathy; 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 Is this a current diagnosis for this admission?: Yes - Time Time Spent: Greater than 70 Minutes Medications reviewed and adjusted accordingly: Yes Anticipated Discharge Disposition: Home, Self Care Anticipated Discharge Timeframe: Within 14 - Inpatient Certification Based on my medical assessment, after consideration of the patient's comorbidities, presenting symptoms, or acuity I expect that the services needed warrant INPATIENT care.: Yes I certify that my determination is in accordance with my understanding of Medicare's requirements for reasonable and necessary INPATIENT services [42 CFR 412.3e].: Yes
[2020-02-02] MEDS ORDERED: DEXTROSE 40% GEL 15 GM TUBE PO PRN ×2 (21:58)
[2020-02-02] MEDS ORDERED: DEXTROSE 50%-WATER 25 GM/50 ML DISP.SYRIN IV PRN ×2 (21:58)
[2020-02-02] MEDS ORDERED: GLUCAGON,HUMAN RECOMB 1 MG INJ IM PRN (21:58)
--- NOTE | 2020-02-02 22:07 | RADIOLOGY REPORT (SQ) ---
EXAM DESCRIPTION: CT CHEST WITHOUT CLINICAL HISTORY: pneumonia TECHNIQUE: Multiple-row detector helical CT examination of the thorax without IV contrast. Axial, sagittal, and coronal reconstructed images. This exam was performed according to our departmental dose optimization program, and includes the following measures where applicable: automated exposure control, adjustment of the mAs and/or kVp according to patient size and/or exam, and an iterative reconstruction algorithm. COMPARISON: April 05 2018 FINDINGS: There are moderate bilateral pleural effusions, right greater than left. Bilateral atelectasis and consolidation is similar in appearance and extent to prior exam. Additionally, there are scattered areas of groundglass opacity bilaterally. Multiple mildly enlarged mediastinal lymph nodes are similar in appearance to prior exam. Heart size is mildly enlarged. Left chest wall cardiac pacer device is in place. No suspicious lytic or blastic osseous lesions are identified. There are degenerative spine changes. IMPRESSION: Moderate bilateral pleural effusions with bilateral atelectasis and consolidation and mild enlargement of the mediastinal lymph nodes. Findings are similar in appearance to prior study dated April 05, 2018. Possibility of a superimposed infectious process is not excluded and clinical correlation is advised.
[2020-02-02] MEDS: INSULIN LISPRO 100 UNIT/ML 3 ML VIAL SUBCUT SCH (23:09)
[2020-02-02] MEDS: CEFTRIAXONE 1 GM/D5W RTU 1 GM/50 ML RTUPB IV SCH (23:10)
[2020-02-02 23:11] LABS: A TYPE INFLUENZA AG NEGATIVE (NEGATIVE); B INFLUENZA AG NEGATIVE (NEGATIVE)
[2020-02-02 23:43] LABS: ABSOLUTE EOSINOPHILS # (AUTO) 0.1 10^3/uL (0.0-0.6); ABSOLUTE MONOCYTES (AUTO) 0.5 10^3/uL (0.1-1.4); ABSOLUTE NEUT (AUTO) 3.6 10^3/uL (1.7-8.2); BASOPHILS % (AUTO) 0.6 % (0-2); EOSINOPHILS % (AUTO) 2.1 % (0-6); HEMATOCRIT 37.8 % (36.0-47.0); HEMOGLOBIN 11.9 g/dL (12.0-15.5); LYMPHOCYTES % (AUTO) 31.7 % (13-45); MEAN CORPUSCULAR HEMOGLOBIN 26.8 pg (27.0-33.4); MEAN CORPUSCULAR HGB CONC 31.6 g/dL (32.0-36.0); MEAN CORPUSCULAR VOLUME 85 fl (80-97); MONOCYTES % (AUTO) 7.9 % (3-13); PLATELET COUNT 188 10^3/uL (150-450); RED BLOOD COUNT 4.47 10^6/uL (3.72-5.28); RED CELL DISTRIBUTION WIDTH 16.5 % (11.5-14.0); SEGMENTED NEUTROPHILS % (AUTO) 57.7 % (42-78); TOTAL CELLS COUNTED % (AUTO) 100 %; WHITE BLOOD COUNT 6.3 10^3/uL (4.0-10.5)
[2020-02-02 23:51] LABS: INTERNATIONAL RATION (INR) 0.95; PROTHROMBIN TIME 12.9 SEC (11.4-15.4)
[2020-02-02 23:52] LABS: FIBRINOGEN 603 mg/dL (209-497); PARTIAL THROMBOPLASTIN TIME 29.4 SEC (23.5-35.8)
[2020-02-02 23:55] LABS: D-DIMER 2.75 ug/mL (0.00-0.50)
[2020-02-02] MEDS: LEVOFLOXACIN 500 MG/D5W RTU 500 MG/100 ML RTUPB IV SCH (23:56)
[2020-02-03 00:08] LABS: ALBUMIN 3.1 g/dL (3.5-5.0); ALKALINE PHOSPHATASE 98 U/L (38-126); ANION GAP 6 (5-19); ASPARTATE AMINO TRANSFERASE 22 U/L (14-36); BILIRUBIN,DIRECT 0.1 mg/dL (0.0-0.4); BILIRUBIN,TOTAL 0.5 mg/dL (0.2-1.3); BLOOD UREA NITROGEN 32 mg/dL (7-20); C-REACTIVE PROTEIN 7.3 mg/L (<10.0); CALCIUM 9.3 mg/dL (8.4-10.2); CARBON DIOXIDE 22 mmol/L (22-30); CHLORIDE 113 mmol/L (98-107); CREATINE KINASE 341 U/L (30-135); GLUCOSE 244 mg/dL (75-110); POTASSIUM 3.9 mmol/L (3.6-5.0); TOTAL PROTEIN 6.2 g/dL (6.3-8.2)
[2020-02-03 06:25] LABS: URINE CREATININE 73.9 mg/dL (15-278)
[2020-02-03 06:58] LABS: UR PRO/CREAT RATIO RESULT 15.7 mg/mg (0.0-0.2); URINE PROTEIN 1159.2 mg/dL (<12)
[2020-02-03 07:04] LABS: INTERNATIONAL RATION (INR) 0.98; PROTHROMBIN TIME 13.2 SEC (11.4-15.4)
[2020-02-03 07:05] LABS: PARTIAL THROMBOPLASTIN TIME 28.3 SEC (23.5-35.8)
[2020-02-03] MEDS: INSULIN LISPRO 100 UNIT/ML 3 ML VIAL SUBCUT SCH ×4 (08:50→22:57)
--- NOTE | 2020-02-03 09:14 | RADIOLOGY REPORT (SQ) ---
EXAM DESCRIPTION: NM LUNG PERFUSION SCAN IMAGES COMPLETED DATE/TIME: 02/03/2020 9:03 am REASON FOR STUDY: SOB J18.8 OTHER PNEUMONIA, UNSPECIFIED ORGANISM D50.9 IRON DEFICIENCY ANEMIA, UN SPECIFIED K29.51 UNSPECIFIED CHRONIC GASTRITIS WITH BLEEDING COMPARISON: Chest x-ray dated 02/02/2020. RADIONUCLIDE AND DOSE: 5.43 millicuries TC-99m MAA The route of agent administration: Intravenous TECHNIQUE: Eight views of the lungs acquired following injection of MAA. LIMITATIONS: None. FINDINGS: PERFUSION: Perfusion images with normal homogenous activity and no wedge-shaped or segment al defects. OTHER: No other significant finding. IMPRESSION: NORMAL PERFUSION LUNG SCAN. TECHNICAL DOCUMENTATION: JOB ID: [id number] 2010 [employer]- All Rights Reserved Reading location - IP/workstation name: [email or web address]
[2020-02-03] MEDS: CEFTRIAXONE 1 GM/D5W RTU 1 GM/50 ML RTUPB IV SCH (10:49)
[2020-02-03] MEDS: LEVOFLOXACIN 500 MG/D5W RTU 500 MG/100 ML RTUPB IV SCH (11:49)
[2020-02-03 15:58] LABS: FLUID TYPE PLEURAL
[2020-02-03 15:59] LABS: FLUID APPEARANCE CLEAR; FLUID COLOR STRAW; FLUID SOURCE LUNG; FLUID VISCOSITY LIQUID
--- NOTE | 2020-02-03 17:02 | RADIOLOGY REPORT (SQ) ---
EXAM DESCRIPTION: U/S THORACENTESIS WITH IMAGING IMAGES COMPLETED DATE/TIME: 02/03/2020 2:30 pm REASON FOR STUDY: pleural effusion J18.8 OTHER PNEUMONIA, UNSPECIFIED ORGANISM D50.9 IRON DEFICIEN CY ANEMIA, UNSPECIFIED K29.51 UNSPECIFIED CHRONIC GASTRITIS WITH BLEEDING COMPARISON: None. RADIATION DOSE: None LIMITATIONS: None. PROCEDURE: Procedure, risks, benefit, and alternative explained to patient who then gave written con sent. The left posterior chest wall was marked using ultrasound guidance. A time-out was called for correct marking verification. Chest prepped and draped using sterile technique. Local anesthesia ac hieved using 8 ml of 1% lidocaine injection. A 6 Israeli [id number] needle was introduced into t he left pleural space. Fluid was aspirated. The needle was removed and the entry site was covered w ith sterile bandage. No immediate complications noted. Fluid samples were sent to the lab for analys is. Images acquired during the procedure were stored on PACS. FINDINGS: ENTRY SITE: Left posterior chest wall FLUID VOLUME: 600 mL FLUID ANALYSIS: Clear, straw-colored OTHER: None IMPRESSION: SUCCESSFUL LEFT THORACENTESIS USING ULTRASOUND GUIDANCE. COMMENT: Patient medication list reviewed: Yes- Quality ID# [id number]:Eligible professional attests to doc umenting in the medical record they obtained, updated, or reviewed the patient's current medications. TECHNICAL DOCUMENTATION: JOB ID: [id number] 2010 [employer]- All Rights Reserved Reading location - IP/workstation name: [email or web address]
[2020-02-03] MEDS ORDERED: (PENDING PHARMACY ID) (Oxycodone Hcl/Acetaminophen [Oxycodone-Acetaminophen 10-325] 1 EACH PO PRN (17:26)
[2020-02-03] MEDS ORDERED: (PENDING PHARMACY ID) (Dapagliflozin Propanediol [Farxiga] 10 MG Tablet) PO SCH (17:30)
[2020-02-03] MEDS ORDERED: (PENDING PHARMACY ID) (Omeprazole [Omeprazole] 40 MG Capsule.Dr) PO SCH (17:30)
[2020-02-03] MEDS ORDERED: FUROSEMIDE 40 MG TABLET PO SCH (18:30)
[2020-02-03] MEDS: APIXABAN 5 MG TABLET PO SCH (18:53)
[2020-02-03] MEDS: PANTOPRAZOLE SODIUM 40 MG TABLET.DR PO SCH (18:53)
[2020-02-03] MEDS: GLIMEPIRIDE 4 MG TABLET PO SCH (18:53)
[2020-02-03] MEDS: CLOPIDOGREL BISULFATE 75 MG TABLET PO SCH (18:54)
[2020-02-03] MEDS: SPIRONOLACTONE 25 MG TABLET PO SCH (18:54)
[2020-02-03] MEDS: OXYCODONE HCL IR 5 MG TABLET PO PRN (18:54)
[2020-02-03] MEDS: METOPROLOL SUCCINATE 50 MG TAB.SR.24H PO SCH (18:54)
[2020-02-03] MEDS ORDERED: ALBUTEROL SULFATE HFA (90 MCG/PUFF) 8 GM MDI IH PRN (19:12)
--- NOTE | 2020-02-03 19:43 | XCELERA REPORT ---
[address] [address] Transthoracic Echocardiogram Report Name: EDUARDA JARRELL Age: 69 yrs Gender: Female : 1950 Patient Status: Inpatient Patient Location: [place] [address]^A Study Date: 02/03/2020 09:26 AM Height: 68 in Weight: 200 lb BSA: 2.0 m2 Procedure: A two-dimensional transthoracic echocardiogram with color flow and Doppler was performed. The study was technically limited with all images being suboptimal in quality. Reason For Study: sob History: Shortness of breath. Ordering Physician: TRAVIS SUBRAMANIAN Performed By: Renee Harding Interpretation Summary The left ventricle is moderately dilated. There is normal left ventricular wall thickness. LV EF is 20% Left ventricular systolic function is severely reduced. Doppler measurements suggest impaired left ventricular relaxation, which is associated with grade I/IV or mild diastolic dysfunction THe lV apex is akinetic.Rest of the LV lópez are severely hypokietic. There is no thrombus. Caaaannot assess ASD,VSD ,or PFO. The right ventricle is normal in size and function. The right ventricle is not well visualized secondary to technical limitations The right atrium is normal. There is no evidence of mitral valve prolapse. There is no vegetation seen on the mitral valve. There is no mitral valve stenosis. There is a moderate to severe amount of mitral regurgitation There is no aortic valve stenosis There is no LVOT obstruction. No aortic regurgitation is present. There is no tricuspid stenosis. There is a mild amount of tricuspid regurgitation There is mild pulmonary hypertension by echo RVSP is 36 to 41 mm of Hg , with RA mean of 5 to 10. There is no pulmonic valvular stenosis. There is a trace amount of pulmonic regurgitation The aortic root is normal size. The inferior vena cava appeared normal and decreased > 50% with respiration (RAP 5-10 mmHg) There is no pericardial effusion. Moderate size left pleural effusion. MMode/2D Measurements & Calculations RVDd: 2.1 cm LVIDd: 5.7 cm FS: 9.6 % Ao root diam: 2.3 cm IVSd: 1.1 cm LVIDs: 5.1 cm EDV(Teich): LVPWd: 1.1 cm 158.9 ml Ao root area: ESV(Teich): 4.2 cm2 125.9 ml EF(Teich): 20.7 % EDV(MOD-sp4): SV(MOD-sp4): 130.9 ml 53.1 ml ESV(MOD-sp4): 77.9 ml EF(MOD-sp4): 40.5 % Doppler Measurements & Calculations MV E max marichuy: MV dec slope: Ao V2 max: LV V1 max P.5 cm/sec 105.1 cm/sec 3.3 mmHg MV A max marichuy: 909.6 cm/sec2 Ao max PG: LV V1 mean P.5 cm/sec MV dec time: 0.11 sec4.4 mmHg 1.7 mmHg MV E/A: 1.3 LV V1 max: 91.3 cm/sec LV V1 mean: 60.5 cm/sec LV V1 VTI: 17.0 cm PA V2 max: PI end-d marichuy: TR max marichuy: 50.6 cm/sec 134.5 cm/sec 271.3 cm/sec PA max P.0 mmHg TR max P.8 mmHg Left Ventricle The left ventricle is moderately dilated. There is normal left ventricular wall thickness. LV EF is 20%. Left ventricular systolic function is severely reduced. Doppler measurements suggest impaired left ventricular relaxation, which is associated with grade I/IV or mild diastolic dysfunction. THe lV apex is akinetic.Rest of the LV lópez are severely hypokietic. There is no thrombus. Caaaannot assess ASD,VSD ,or PFO. Right Ventricle The right ventricle is normal in size and function. The right ventricle is not well visualized secondary to technical limitations. Atria The right atrium is normal. The left atrial size is normal. Mitral Valve There is no evidence of mitral valve prolapse. There is no vegetation seen on the mitral valve. There is no mitral valve stenosis. There is a moderate to severe amount of mitral regurgitation. Aortic Valve There is no aortic valvular vegetation. There is no aortic valve stenosis. There is no LVOT obstruction. No aortic regurgitation is present. Tricuspid Valve There is no tricuspid stenosis. There is a mild amount of tricuspid regurgitation. There is mild pulmonary hypertension by echo. RVSP is 36 to 41 mm of Hg , with RA mean of 5 to 10. Pulmonic Valve There is no pulmonic valvular stenosis. There is a trace amount of pulmonic regurgitation. Great Vessels The aortic root is normal size. The inferior vena cava appeared normal and decreased > 50% with respiration (RAP 5-10 mmHg). Effusions There is no pericardial effusion. Moderate size left pleural effusion. : TRAVIS SUBRAMANIAN Lakshmi
--- NOTE | 2020-02-03 21:30 | PDOC PROGRESS REPORT ---
Subjective Date:: 02/03/20 Subjective:: Patient seen by the bedside she had thoracentesis today over 600 cc of fluid col lected, VQ scan was done demonstrated normal perfusion scan, she has severe nephrotic syndrome, severe acute on chronic systolic heart failure, EF 20%, will treat patient with a low dose furosemide infusion Reason For Visit: CHRONIC HEART FAILURE Physical Exam Vital Signs: Temp Pulse Resp BP Pulse Ox 97.8 F 94 18 161/98 H 95 02/03/20 18:57 02/03/20 18:57 02/03/20 18:57 02/03/20 18:57 02/03/20 18:57 Intake & Output 02/02/20 02/03/20 02/04/20 06:59 06:59 06:59 Intake Total 150 150 Output Total 500 Balance 150 -350 Weight 97.522 kg General appearance: PRESENT: no acute distress Eye exam: PRESENT: PERRLA Respiratory exam: PRESENT: decreased breath sounds Cardiovascular exam: PRESENT: +S1, +S2 GI/Abdominal exam: PRESENT: soft Extremities exam: PRESENT: pedal edema Neurological exam: PRESENT: alert, CN II-XII grossly intact Results Laboratory Results: 02/02/20 23:22 02/02/20 23:22 02/02/20 02/02/20 02/03/20 23:22 23:22 13:45 WBC 6.3 RBC 4.47 Hgb 11.9 L Hct 37.8 MCV 85 MCH 26.8 L MCHC 31.6 L RDW 16.5 H Plt Count 188 Seg Neutrophils % 57.7 Sodium 141.3 Potassium 3.9 Chloride 113 H Carbon Dioxide 22 Anion Gap 6 BUN 32 H Creatinine 1.32 H Est GFR ( Amer) 49 L Glucose 244 H Calcium 9.3 Ferritin 106.00 Total Bilirubin 0.5 AST 22 Alkaline Phosphatase 98 C-Reactive Protein 7.3 Total Protein 6.2 L Albumin 3.1 L Fluid Type PLEURAL Fluid Source LUNG Fluid Color STRAW Fluid Appearance CLEAR Fluid Viscosity LIQUID Fluid WBC 131 Fluid RBC 770 02/02/20 02/02/20 02/02/20 16:38 23:22 23:22 Creatine Kinase 341 H Troponin I 0.081 NT-Pro-B Natriuret Pep [id number] H Impressions: Chest CT 02/02/20 00:00 IMPRESSION: Moderate bilateral pleural effusions with bilateral atelectasis and consolidation and mild enlargement of the mediastinal lymph nodes. Findings are similar in appearance to prior study dated April 05, 2018. Possibility of a superimposed infectious process is not excluded and clinical correlation is advised. Lung Scan-VQ NM 02/02/20 00:00 IMPRESSION: NORMAL PERFUSION LUNG SCAN. Thoracentesis Ultrasound 02/03/20 03:46 IMPRESSION: SUCCESSFUL LEFT THORACENTESIS USING ULTRASOUND GUIDANCE. Assessment & Plan - Diagnosis (1) Acute on chronic combined systolic (congestive) and diastolic (congestive) heart failure Is this a current diagnosis for this admission?: Yes Plan: She has acute systolic heart failure, patient symptoms is due to combination of acute systolic heart failure and nephrotic syndrome (2) Chronic kidney disease, stage 3 unspecified Qualifiers: Chronic kidney disease stage 3 subtype: stage 3a (GFR 45-59) Qualified Code(s): N18.31 - Chronic kidney disease, stage 3a Is this a current diagnosis for this admission?: Yes (3) Pneumonia Qualifiers: Pneumonia type: due to unspecified organism Laterality: unspecified laterality Lung location: unspecified part of lung Qualified Code(s): J18.9 - Pneumonia, unspecified organism Is this a current diagnosis for this admission?: Yes Plan: I cannot completely rule out SARS-CoV-2 infection, bacterial pneumonia, patient to be isolated with PUI status, start empiric antibiotic (4) Nephrotic syndrome Is this a current diagnosis for this admission?: Yes Plan: The urine protein creatinine ratio is 15.7 consistent with nephrotic syndrome (5) T2DM (type 2 diabetes mellitus) Qualifiers: Diabetes mellitus middle or intermediate school principal insulin use: with care home use Diabetes mellitus complication status: with kidney complications Diabetes mellitus complication detail: with nephropathy Qualified Code(s): E11.21 - Type 2 diabetes mellitus with diabetic nephropathy; Z79.4 - ad terminal makeup operator (current) use of insulin Is this a current diagnosis for this admission?: Yes - Time Time Spent with patient: 25-34 minutes Level of Care: IMCU Medications reviewed and adjusted accordingly: Yes Anticipated discharge: Home Anticipated DC Timeframe: Other
[2020-02-03] MEDS: NORMAL SALINE 250 ML with FUROSEMIDE 250 MG IV PRN ×2 (22:53)
[2020-02-03] MEDS: SACUBITRIL/VALSARTAN 97 MG/103 MG TABLET PO SCH (22:55)
[2020-02-03] MEDS: ALBUTEROL SULFATE HFA (90 MCG/PUFF) 8 GM MDI IH PRN (22:55)
[2020-02-03] MEDS: ATORVASTATIN CALCIUM 40 MG TABLET PO SCH (22:56)
[2020-02-03] MEDS: GABAPENTIN 400 MG CAPSULE PO SCH (22:56)
[2020-02-04] MEDS: GABAPENTIN 400 MG CAPSULE PO SCH ×3 (06:34→22:58)
[2020-02-04] MEDS ORDERED: [UNRECOGNIZED DRUG - OTHER] SQ SCH (08:00)
[2020-02-04] MEDS: INSULIN LISPRO 100 UNIT/ML 3 ML VIAL SUBCUT SCH ×4 (08:45→22:58)
[2020-02-04] MEDS: ALBUTEROL SULFATE HFA (90 MCG/PUFF) 8 GM MDI IH PRN ×2 (08:54→23:04)
--- NOTE | 2020-02-04 10:14 | RADIOLOGY REPORT (SQ) ---
EXAM DESCRIPTION: CHEST SINGLE VIEW IMAGES COMPLETED DATE/TIME: 02/03/2020 2:12 pm REASON FOR STUDY: POST THORA COMPARISON: 02/02/2020 EXAM PARAMETERS: NUMBER OF VIEWS: One view. TECHNIQUE: Single frontal radiographic view of the chest acquired. RADIATION DOSE: NA LIMITATIONS: None. FINDINGS: LUNGS AND PLEURA: Pulmonary edema. No pneumothorax. MEDIASTINUM AND HILAR STRUCTURES: No masses. Contour normal. HEART AND VASCULAR STRUCTURES: Cardiomegaly. BONES: No acute findings. HARDWARE: Pacemaker/defibrillator. OTHER: No other significant finding. IMPRESSION: Cardiomegaly with pulmonary edema. No pneumothorax. TECHNICAL DOCUMENTATION: JOB ID: [id number] 2010 [employer]- All Rights Reserved Reading location - IP/workstation name: [email or web address]
[2020-02-04] MEDS: SACUBITRIL/VALSARTAN 97 MG/103 MG TABLET PO SCH ×2 (10:39→22:58)
[2020-02-04] MEDS: CLOPIDOGREL BISULFATE 75 MG TABLET PO SCH (10:39)
[2020-02-04] MEDS: METOPROLOL SUCCINATE 50 MG TAB.SR.24H PO SCH (10:40)
[2020-02-04] MEDS: PANTOPRAZOLE SODIUM 40 MG TABLET.DR PO SCH (10:40)
[2020-02-04] MEDS: SPIRONOLACTONE 25 MG TABLET PO SCH (10:40)
[2020-02-04] MEDS: GLIMEPIRIDE 4 MG TABLET PO SCH (10:40)
[2020-02-04] MEDS: CEFTRIAXONE 1 GM/D5W RTU 1 GM/50 ML RTUPB IV SCH (10:40)
[2020-02-04] MEDS: APIXABAN 5 MG TABLET PO SCH ×2 (10:40→17:05)
[2020-02-04] MEDS: LEVOFLOXACIN 500 MG/D5W RTU 500 MG/100 ML RTUPB IV SCH (10:41)
--- NOTE | 2020-02-04 10:43 | RADIOLOGY REPORT (SQ) ---
EXAM DESCRIPTION: CHEST SINGLE VIEW IMAGES COMPLETED DATE/TIME: 02/03/2020 4:27 pm REASON FOR STUDY: 2 HOUR POST THORA COMPARISON: None. EXAM PARAMETERS: NUMBER OF VIEWS: One view. TECHNIQUE: Single frontal radiographic view of the chest acquired. RADIATION DOSE: NA LIMITATIONS: Demographics mismatch warning FINDINGS: LUNGS AND PLEURA: No pneumothorax. Mild pulmonary edema appears to be improved. MEDIASTINUM AND HILAR STRUCTURES: No masses. Contour normal. HEART AND VASCULAR STRUCTURES: Cardiomegaly. BONES: No acute findings. HARDWARE: Pacemaker/defibrillator. OTHER: Despite the demographics mismatch warning, these 2 images are obviously of the same patient. IMPRESSION: Decreasing pulmonary edema. No pneumothorax. TECHNICAL DOCUMENTATION: JOB ID: [id number] 2010 [employer]- All Rights Reserved Reading location - IP/workstation name: [email or web address]
[2020-02-04] MEDS: OXYCODONE HCL IR 5 MG TABLET PO PRN (11:20)
--- NOTE | 2020-02-04 16:05 | PDOC PROGRESS REPORT ---
Subjective Date:: 02/04/20 Subjective:: Patient seen by the bedside, she said she feels better Reason For Visit: CHRONIC HEART FAILURE Physical Exam Vital Signs: Temp Pulse Resp BP Pulse Ox 98.2 F 70 18 116/63 95 02/04/20 11:10 02/04/20 14:00 02/04/20 11:10 02/04/20 11:10 02/04/20 11:10 Intake & Output 02/03/20 02/04/20 02/05/20 06:59 06:59 06:59 Intake Total 150 150 530 Output Total 900 Balance 150 -750 530 Weight 97.522 kg 99.7 kg General appearance: PRESENT: no acute distress Eye exam: PRESENT: PERRLA Respiratory exam: PRESENT: clear to auscultation rodrigue Cardiovascular exam: PRESENT: +S1, +S2 GI/Abdominal exam: PRESENT: soft Neurological exam: PRESENT: alert Results Laboratory Results: 02/02/20 23:22 02/02/20 23:22 02/03/20 13:45 Fluid Type PLEURAL Fluid Source LUNG Fluid Color STRAW Fluid Appearance CLEAR Fluid Viscosity LIQUID Fluid WBC 131 Fluid RBC 770 02/02/20 22:40 Throat Throat Culture - Final NORMAL CHANDLER 02/02/20 02/02/20 02/02/20 16:38 23:22 23:22 Creatine Kinase 341 H Troponin I 0.081 NT-Pro-B Natriuret Pep [id number] H Impressions: Chest CT 02/02/20 00:00 IMPRESSION: Moderate bilateral pleural effusions with bilateral atelectasis and consolidation and mild enlargement of the mediastinal lymph nodes. Findings are similar in appearance to prior study dated April 05, 2018. Possibility of a superimposed infectious process is not excluded and clinical correlation is advised. Lung Scan-VQ NM 02/02/20 00:00 IMPRESSION: NORMAL PERFUSION LUNG SCAN. Thoracentesis Ultrasound 02/03/20 03:46 IMPRESSION: SUCCESSFUL LEFT THORACENTESIS USING ULTRASOUND GUIDANCE. Chest X-Ray 02/03/20 15:55 IMPRESSION: Decreasing pulmonary edema. No pneumothorax. Assessment & Plan - Diagnosis (1) Acute on chronic combined systolic (congestive) and diastolic (congestive) heart failure Is this a current diagnosis for this admission?: Yes Plan: She has acute systolic heart failure, patient symptoms is due to combination of acute systolic heart failure and nephrotic syndrome, Continue anti-CHF regimen (2) Chronic kidney disease, stage 3 unspecified Qualifiers: Chronic kidney disease stage 3 subtype: stage 3a (GFR 45-59) Qualified Code(s): N18.31 - Chronic kidney disease, stage 3a Is this a current diagnosis for this admission?: Yes (3) Pneumonia Qualifiers: Pneumonia type: due to unspecified organism Laterality: unspecified laterality Lung location: unspecified part of lung Qualified Code(s): J18.9 - Pneumonia, unspecified organism Is this a current diagnosis for this admission?: Yes Plan: She does not have SARS-CoV-2 infection, Continue IV antibiotic for pneumonia (4) Nephrotic syndrome Is this a current diagnosis for this admission?: Yes Plan: The urine protein creatinine ratio is 15.7 consistent with nephrotic syndrome (5) T2DM (type 2 diabetes mellitus) Qualifiers: 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
[2020-02-04 17:27] LABS: ABSOLUTE EOSINOPHILS # (AUTO) 0.2 10^3/uL (0.0-0.6); ABSOLUTE LYMPHOCYTES (AUTO) 1.9 10^3/uL (0.5-4.7); ABSOLUTE MONOCYTES (AUTO) 0.5 10^3/uL (0.1-1.4); ABSOLUTE NEUT (AUTO) 2.9 10^3/uL (1.7-8.2); BASOPHILS % (AUTO) 0.6 % (0-2); EOSINOPHILS % (AUTO) 4.3 % (0-6); HEMATOCRIT 38.3 % (36.0-47.0); HEMOGLOBIN 11.9 g/dL (12.0-15.5); LYMPHOCYTES % (AUTO) 34.6 % (13-45); MEAN CORPUSCULAR HEMOGLOBIN 26.4 pg (27.0-33.4); MEAN CORPUSCULAR HGB CONC 31.2 g/dL (32.0-36.0); MEAN CORPUSCULAR VOLUME 85 fl (80-97); MONOCYTES % (AUTO) 8.9 % (3-13); PLATELET COUNT 182 10^3/uL (150-450); RED BLOOD COUNT 4.52 10^6/uL (3.72-5.28); RED CELL DISTRIBUTION WIDTH 16.6 % (11.5-14.0); SEGMENTED NEUTROPHILS % (AUTO) 51.6 % (42-78); TOTAL CELLS COUNTED % (AUTO) 100 %; WHITE BLOOD COUNT 5.6 10^3/uL (4.0-10.5)
[2020-02-04 17:50] LABS: ALBUMIN 2.8 g/dL (3.5-5.0); ALKALINE PHOSPHATASE 83 U/L (38-126); ANION GAP 9 (5-19); ASPARTATE AMINO TRANSFERASE 20 U/L (14-36); BILIRUBIN,DIRECT 0.2 mg/dL (0.0-0.4); BILIRUBIN,TOTAL 0.6 mg/dL (0.2-1.3); BLOOD UREA NITROGEN 26 mg/dL (7-20); CALCIUM 8.5 mg/dL (8.4-10.2); CARBON DIOXIDE 22 mmol/L (22-30); CHLORIDE 106 mmol/L (98-107); GLUCOSE 229 mg/dL (75-110); POTASSIUM 4.2 mmol/L (3.6-5.0); TOTAL PROTEIN 5.8 g/dL (6.3-8.2)
[2020-02-04] MEDS: OXYCODONE-ACETAMINOPHEN 5-325 MG TABLET PO PRN (18:51)
[2020-02-04] MEDS: ATORVASTATIN CALCIUM 40 MG TABLET PO SCH (22:58)
[2020-02-04] MEDS: NORMAL SALINE 250 ML with FUROSEMIDE 250 MG IV PRN ×2 (22:58)
[2020-02-04] MEDS: PHARMACY COMMUNICATION ORDER MC SCH (23:06)
[2020-02-05] MEDS: GABAPENTIN 400 MG CAPSULE PO SCH ×3 (05:08→21:49)
[2020-02-05] MEDS: OXYCODONE HCL IR 5 MG TABLET PO PRN ×2 (07:59→16:30)
[2020-02-05] MEDS: OXYCODONE-ACETAMINOPHEN 5-325 MG TABLET PO PRN ×2 (08:00→16:30)
[2020-02-05] MEDS: INSULIN LISPRO 100 UNIT/ML 3 ML VIAL SUBCUT SCH ×4 (08:07→22:55)
[2020-02-05] MEDS: CLOPIDOGREL BISULFATE 75 MG TABLET PO SCH (10:12)
[2020-02-05] MEDS: SPIRONOLACTONE 25 MG TABLET PO SCH (10:12)
[2020-02-05] MEDS: GLIMEPIRIDE 4 MG TABLET PO SCH (10:12)
[2020-02-05] MEDS: METOPROLOL SUCCINATE 50 MG TAB.SR.24H PO SCH (10:12)
[2020-02-05] MEDS: PANTOPRAZOLE SODIUM 40 MG TABLET.DR PO SCH (10:12)
[2020-02-05] MEDS: CEFTRIAXONE 1 GM/D5W RTU 1 GM/50 ML RTUPB IV SCH (10:12)
[2020-02-05] MEDS: APIXABAN 5 MG TABLET PO SCH ×2 (10:15→18:06)
[2020-02-05] MEDS: SACUBITRIL/VALSARTAN 97 MG/103 MG TABLET PO SCH ×2 (10:17→21:52)
[2020-02-05] MEDS: LEVOFLOXACIN 500 MG/D5W RTU 500 MG/100 ML RTUPB IV SCH (10:26)
[2020-02-05 11:01] LABS: ABSOLUTE EOSINOPHILS # (AUTO) 0.2 10^3/uL (0.0-0.6); ABSOLUTE LYMPHOCYTES (AUTO) 1.2 10^3/uL (0.5-4.7); ABSOLUTE MONOCYTES (AUTO) 0.4 10^3/uL (0.1-1.4); ABSOLUTE NEUT (AUTO) 2.7 10^3/uL (1.7-8.2); BASOPHILS % (AUTO) 0.7 % (0-2); EOSINOPHILS % (AUTO) 5.2 % (0-6); HEMATOCRIT 40.6 % (36.0-47.0); HEMOGLOBIN 12.6 g/dL (12.0-15.5); LYMPHOCYTES % (AUTO) 26.8 % (13-45); MEAN CORPUSCULAR HEMOGLOBIN 26.3 pg (27.0-33.4); MEAN CORPUSCULAR HGB CONC 31.1 g/dL (32.0-36.0); MEAN CORPUSCULAR VOLUME 85 fl (80-97); MONOCYTES % (AUTO) 8.5 % (3-13); PLATELET COUNT 187 10^3/uL (150-450); RED CELL DISTRIBUTION WIDTH 17.3 % (11.5-14.0); SEGMENTED NEUTROPHILS % (AUTO) 58.8 % (42-78); TOTAL CELLS COUNTED % (AUTO) 100 %; WHITE BLOOD COUNT 4.6 10^3/uL (4.0-10.5)
[2020-02-05 11:20] LABS: ALKALINE PHOSPHATASE 86 U/L (38-126); ANION GAP 9 (5-19); ASPARTATE AMINO TRANSFERASE 23 U/L (14-36); BILIRUBIN,DIRECT 0.3 mg/dL (0.0-0.4); BILIRUBIN,TOTAL 0.7 mg/dL (0.2-1.3); BLOOD UREA NITROGEN 32 mg/dL (7-20); CALCIUM 8.7 mg/dL (8.4-10.2); CARBON DIOXIDE 24 mmol/L (22-30); CHLORIDE 104 mmol/L (98-107); GLUCOSE 318 mg/dL (75-110); POTASSIUM 4.4 mmol/L (3.6-5.0); TOTAL PROTEIN 6.1 g/dL (6.3-8.2)
[2020-02-05 13:51] LABS: ALBUMIN BODY FLUID 0.3 g/dL (Not Estab.); TOTAL PROTEIN BODY FLUID 0.7 g/dL (.)
[2020-02-05] MEDS: PHARMACY COMMUNICATION ORDER MC SCH (18:07)
--- NOTE | 2020-02-05 21:23 | PDOC PROGRESS REPORT ---
Subjective Date:: 02/05/20 Subjective:: Patient seen at bedside,she is improving on lasix infusion Reason For Visit: CHRONIC HEART FAILURE Physical Exam Vital Signs: Temp Pulse Resp BP Pulse Ox 97.6 F 72 18 103/57 L 99 02/05/20 16:21 02/05/20 19:00 02/05/20 16:21 02/05/20 16:21 02/05/20 16:21 Intake & Output 02/04/20 02/05/20 02/06/20 06:59 06:59 06:59 Intake Total 150 1010 1152 Output Total 900 Balance -750 1010 1152 Weight 99.7 kg 96.7 kg General appearance: PRESENT: no acute distress Eye exam: PRESENT: PERRLA Respiratory exam: PRESENT: clear to auscultation rodrigue Cardiovascular exam: PRESENT: +S1, +S2 GI/Abdominal exam: PRESENT: soft Neurological exam: PRESENT: alert, CN II-XII grossly intact Results Laboratory Results: 02/05/20 10:18 02/05/20 10:18 02/03/20 02/05/20 02/05/20 13:45 10:18 10:18 WBC 4.6 RBC 4.80 Hgb 12.6 Hct 40.6 MCV 85 MCH 26.3 L MCHC 31.1 L RDW 17.3 H Plt Count 187 Seg Neutrophils % 58.8 Sodium 136.5 L Potassium 4.4 Chloride 104 Carbon Dioxide 24 Anion Gap 9 BUN 32 H Creatinine 1.88 H Est GFR ( Amer) 32 L Glucose 318 H Calcium 8.7 Total Bilirubin 0.7 AST 23 Alkaline Phosphatase 86 Total Protein 6.1 L Albumin 3.0 L Fluid Glucose 273 Fluid Total Protein 0.7 Fluid Albumin 0.3 Fluid LDH 67 Fluid Amylase 10 02/03/20 13:45 Pleural Fluid Gram Stain - Final 02/02/20 02/02/20 02/02/20 16:38 23:22 23:22 Creatine Kinase 341 H Troponin I 0.081 NT-Pro-B Natriuret Pep [id number] H Impressions: Chest CT 02/02/20 00:00 IMPRESSION: Moderate bilateral pleural effusions with bilateral atelectasis and consolidation and mild enlargement of the mediastinal lymph nodes. Findings are similar in appearance to prior study dated April 05, 2018. Possibility of a superimposed infectious process is not excluded and clinical correlation is advised. Lung Scan-VQ NM 02/02/20 00:00 IMPRESSION: NORMAL PERFUSION LUNG SCAN. Thoracentesis Ultrasound 02/03/20 03:46 IMPRESSION: SUCCESSFUL LEFT THORACENTESIS USING ULTRASOUND GUIDANCE. Chest X-Ray 02/03/20 15:55 IMPRESSION: Decreasing pulmonary edema. No pneumothorax. Assessment & Plan - Diagnosis (1) Acute on chronic combined systolic (congestive) and diastolic (congestive) heart failure Is this a current diagnosis for this admission?: Yes Plan: She has acute systolic heart failure, patient symptoms is due to combination of acute systolic heart failure and nephrotic syndrome, Continue anti-CHF regimen (2) Chronic kidney disease, stage 3 unspecified Qualifiers: Chronic kidney disease stage 3 subtype: stage 3a (GFR 45-59) Qualified Code(s): N18.31 - Chronic kidney disease, stage 3a Is this a current diagnosis for this admission?: Yes (3) Pneumonia Qualifiers: Pneumonia type: due to unspecified organism Laterality: unspecified laterality Lung location: unspecified part of lung Qualified Code(s): J18.9 - Pneumonia, unspecified organism Is this a current diagnosis for this admission?: Yes Plan: She does not have SARS-CoV-2 infection, Continue IV antibiotic for pneumonia (4) Nephrotic syndrome Is this a current diagnosis for this admission?: Yes Plan: The urine protein creatinine ratio is 15.7 consistent with nephrotic syndrome (5) T2DM (type 2 diabetes mellitus) Qualifiers: Diabetes mellitus fdc insulin use: with terminal carman use Diabetes mellitus complication status: with kidney complications Diabetes mellitus complication detail: with nephropathy Qualified Code(s): E11.21 - Type 2 diabetes mellitus with diabetic nephropathy; Z79.4 - intermediate (current) use of insulin Is this a current diagnosis for this admission?: Yes - Time Time Spent with patient: 15-24 minutes Level of Care: IMCU Medications reviewed and adjusted accordingly: Yes Anticipated discharge: Home - Inpatient Certification Based on my medical assessment, after consideration of the patient's comorbidities, presenting symptoms, or acuity I expect that the services needed warrant INPATIENT care.: Yes I certify that my determination is in accordance with my understanding of Medicare's requirements for reasonable and necessary INPATIENT services [42 CFR 412.3e].: Yes
[2020-02-05] MEDS: ATORVASTATIN CALCIUM 40 MG TABLET PO SCH (21:49)
--- NOTE | 2020-02-05 22:18 | RADIOLOGY REPORT (SQ) ---
CLINICAL INDICATION: chf. TECHNIQUE: A single portable AP view was obtained of the chest at 2133 hours. COMPARISON: February 03, 2020. FINDINGS: The cardiomediastinal silhouette is enlarged with postsurgical changes. The lungs demonstrate improved aeration when compared to prior. No evidence of effusion or pneumothorax. The visualized bones are unremarkable. IMPRESSION: Improved aeration compared to prior. Mild residual congestive change.
[2020-02-06] MEDS: GABAPENTIN 400 MG CAPSULE PO SCH ×2 (05:37→17:13)
[2020-02-06] MEDS: INSULIN LISPRO 100 UNIT/ML 3 ML VIAL SUBCUT SCH ×3 (08:55→17:11)
[2020-02-06] MEDS ORDERED: LEVOFLOXACIN 500 MG TABLET PO SCH (10:00)
[2020-02-06] MEDS: APIXABAN 5 MG TABLET PO SCH ×2 (10:47→17:13)
[2020-02-06] MEDS: GLIMEPIRIDE 4 MG TABLET PO SCH (10:47)
[2020-02-06] MEDS: CEFTRIAXONE 1 GM/D5W RTU 1 GM/50 ML RTUPB IV SCH (10:47)
[2020-02-06] MEDS: CLOPIDOGREL BISULFATE 75 MG TABLET PO SCH (10:47)
[2020-02-06] MEDS: METOPROLOL SUCCINATE 50 MG TAB.SR.24H PO SCH (10:47)
[2020-02-06] MEDS: OXYCODONE HCL IR 5 MG TABLET PO PRN (10:52)
[2020-02-06] MEDS: SPIRONOLACTONE 25 MG TABLET PO SCH (10:52)
[2020-02-06] MEDS: PANTOPRAZOLE SODIUM 40 MG TABLET.DR PO SCH (10:52)
[2020-02-06] MEDS: OXYCODONE-ACETAMINOPHEN 5-325 MG TABLET PO PRN (10:53)
[2020-02-06] MEDS: SACUBITRIL/VALSARTAN 97 MG/103 MG TABLET PO SCH (11:00)
--- NOTE | 2020-02-06 13:00 | PDOC DISCHARGE SUMMARY ---
Impression - Admit/DC Date/PCP Admission Date/Primary Care Provider: 02/02/20 21:46 TRAVIS SUBRAMANIAN MD Discharge Date: 02/06/20 - Discharge Diagnosis (1) Acute on chronic combined systolic (congestive) and diastolic (congestive) heart failure Is this a current diagnosis for this admission?: Yes (2) Chronic kidney disease, stage 3 unspecified Is this a current diagnosis for this admission?: Yes (3) Pneumonia Is this a current diagnosis for this admission?: Yes (4) Nephrotic syndrome Is this a current diagnosis for this admission?: Yes (5) T2DM (type 2 diabetes mellitus) Is this a current diagnosis for this admission?: Yes - Additional Information Discharge Diet: Cardiac, Diabetic Discharge Activity: Activity As Tolerated, Balance Activity w/Rest, Weigh Daily Referrals: TRAVIS SUBRAMANIAN MD [Primary Care Provider] - 02/17/20 10:45 am Prescriptions: Furosemide [Lasix 40 mg Tablet] 40 mg PO Q8H #90 tablet Home Medications: Atorvastatin Calcium [Lipitor 40 mg Tablet] 40 mg PO DAILY 11/23/18 Insulin Glargine/Lixisenatide [Soliqua 100 Unit-33 Mcg/ml Pen] 30 units SQ QAM 06/03/19 Oxycodone HCl/Acetaminophen [Oxycodone-Acetaminophen 10-325] 1 each PO QIDP PRN 06/04/19 Metoprolol Succinate [Toprol Xl 50 mg Tab.sr] 50 mg PO DAILY #90 tab.sr.24h 06/11/19 Sacubitril/Valsartan [Entresto 97 mg/103 mg Tablet] 1 tab PO Q12 #90 tablet 06/11/19 Spironolactone [Aldactone 25 mg Tablet] 25 mg PO DAILY #90 tablet 06/11/19 Albuterol Sulfate [Albuterol Sulfate Hfa] 2 puff IH Q6HP PRN 02/03/20 Apixaban [Eliquis 5 mg Tablet] 5 mg PO BID 02/03/20 Clopidogrel Bisulfate [Plavix 75 mg Tablet] 75 mg PO DAILY 02/03/20 Dapagliflozin Propanediol [Farxiga] 10 mg PO DAILY 02/03/20 Gabapentin [Neurontin 400 mg Capsule] 800 mg PO Q8 02/03/20 Glimepiride [Amaryl 4 mg Tablet] 4 mg PO DAILY 02/03/20 Insulin Aspart [Novolog Flexpen] 0 unit PO .SLIDING SCALE 02/03/20 Omeprazole 40 mg PO DAILY 02/03/20 Albuterol Sulfate [Ventolin Hfa 8 gm Mdi] 2 puff IH Q6HP PRN inhaler 02/06/20 Furosemide [Lasix 40 mg Tablet] 40 mg PO Q8H #90 tablet 02/06/20 History of Present Illiness History of Present Illness: EDUARDA JARRELL is a 69 year old female, Patient came to the office today for evaluation of shortness of breath, she said she is very short of breath, she has orthopnea, she cannot walk any distance without getting dyspneic.She has a history of chronic systolic and diastolic heart failure, coronary artery disease, nephrotic range proteinuria,Poorly controlled diabetes mellitus.CAT scan of the chest without contrast was done, it demonstrated moderate bilateral pleural effusion right more than left, bilateral atelectasis and consolidation is similar in appearance and extent to prior examination. Additionally, there are scattered areas of groundglass opacity bilaterally. Multiple mildly enlarged mediastinal lymph nodes similar in appearance.She is medically and device therapy optimized, status post AICD/pacemaker implantation Hospital Course Hospital Course: Patient was admitted for the management of acute systolic heart failure and nephrotic syndrome, she presented with shortness of breath, CAT scan demonstrated bilateral pleural effusion, she underwent thoracentesis over 500 cc of pleural fluid Was removed with improvement of her symptoms. She also have nephrotic syndrome, the urine protein continuation was 15 consistent with 15 g protein excretion [address] scan that was done suggest consolidation consistent with pneumonia SARS-CoV-2 infection was ruled out.She was treated with IV furosemide infusion with improvement in symptoms. She is optimized medically and also with device therapy, she has AICD pacemaker implantation. She also was treated empirically with IV antibiotic overall patient improved significantly.2D echo, transthoracic echocardiogram was done, the estimated ejection fraction of left ventricle was 20%, she has had a VQ scan done that demonstrated normal perfusion, patient is on anticoagulant Eliquis chronically because of atrial fibrillation. Physical Exam Vital Signs: Temp Pulse Resp BP Pulse Ox 97.5 F 71 19 125/63 99 02/06/20 11:11 02/06/20 11:11 02/06/20 11:11 02/06/20 11:11 02/06/20 11:11 Intake & Output 02/05/20 02/06/20 02/07/20 06:59 06:59 06:59 Intake Total 1010 1902 Balance 1010 1902 Weight 96.7 kg 100.4 kg General appearance: PRESENT: no acute distress Eye exam: PRESENT: PERRLA Respiratory exam: PRESENT: clear to auscultation rodrigue Cardiovascular exam: PRESENT: +S1, +S2 GI/Abdominal exam: PRESENT: soft Neurological exam: PRESENT: alert, CN II-XII grossly intact Results Laboratory Results: WBC 4.6 10^3/uL (4.0-10.5) 02/05/20 10:18 RBC 4.80 10^6/uL (3.72-5.28) 02/05/20 10:18 Hgb 12.6 g/dL (12.0-15.5) 02/05/20 10:18 Hct 40.6 % (36.0-47.0) 02/05/20 10:18 MCV 85 fl (80-97) 02/05/20 10:18 MCH 26.3 pg (27.0-33.4) L 02/05/20 10:18 MCHC 31.1 g/dL (32.0-36.0) L 02/05/20 10:18 RDW 17.3 % (11.5-14.0) H 02/05/20 10:18 Plt Count 187 10^3/uL (150-450) 02/05/20 10:18 Lymph % (Auto) 26.8 % (13-45) 02/05/20 10:18 Sharkey % (Auto) 8.5 % (3-13) 02/05/20 10:18 Eos % (Auto) 5.2 % (0-6) 02/05/20 10:18 Baso % (Auto) 0.7 % (0-2) 02/05/20 10:18 Absolute Neuts (auto) 2.7 10^3/uL (1.7-8.2) 02/05/20 10:18 Absolute Lymphs (auto) 1.2 10^3/uL (0.5-4.7) 02/05/20 10:18 Absolute Monos (auto) 0.4 10^3/uL (0.1-1.4) 02/05/20 10:18 Absolute Eos (auto) 0.2 10^3/uL (0.0-0.6) 02/05/20 10:18 Absolute Basos (auto) 0.0 10^3/uL (0.0-0.2) 02/05/20 10:18 Seg Neutrophils % 58.8 % (42-78) 02/05/20 10:18 PT 13.2 SEC (11.4-15.4) 02/03/20 06:22 INR 0.98 02/03/20 06:22 APTT 28.3 SEC (23.5-35.8) 02/03/20 06:22 Fibrinogen 603 mg/dL (209-497) H 02/02/20 23:22 D-Dimer 2.75 ug/mL (0.00-0.50) H 02/02/20 23:22 Sodium 136.5 mmol/L (137-145) L 02/05/20 10:18 Potassium 4.4 mmol/L (3.6-5.0) 02/05/20 10:18 Chloride 104 mmol/L (98-107) 02/05/20 10:18 Carbon Dioxide 24 mmol/L (22-30) 02/05/20 10:18 Anion Gap 9 (5-19) 02/05/20 10:18 BUN 32 mg/dL (7-20) H 02/05/20 10:18 Creatinine 1.88 mg/dL (0.52-1.25) H 02/05/20 10:18 Est GFR ( Amer) 32 (>60) L 02/05/20 10:18 Est GFR (MDRD) Non-Af 27 (>60) L 02/05/20 10:18 Glucose 318 mg/dL (75-110) H 02/05/20 10:18 POC Glucose 294 mg/dL (70-110) H 02/06/20 11:17 Hemoglobin A1c % 9.5 % (4.7-6.0) H 02/02/20 16:38 Calcium 8.7 mg/dL (8.4-10.2) 02/05/20 10:18 Ferritin 106.00 ng/mL (11.1-264.0) 02/02/20 23:22 Total Bilirubin 0.7 mg/dL (0.2-1.3) 02/05/20 10:18 Direct Bilirubin 0.3 mg/dL (0.0-0.4) 02/05/20 10:18 Neonat Total Bilirubin Not Reportable 02/05/20 10:18 Neonat Direct Bilirubin Not Reportable 02/05/20 10:18 Neonat Indirect Bili Not Reportable 02/05/20 10:18 AST 23 U/L (14-36) 02/05/20 10:18 ALT 14 U/L (<35) 02/05/20 10:18 Alkaline Phosphatase 86 U/L (38-126) 02/05/20 10:18 Lactate Dehydrogenase 384 U/L (120-246) H 02/03/20 07:56 Creatine Kinase 341 U/L (30-135) H 02/02/20 23:22 Troponin I 0.081 ng/mL 02/02/20 23:22 C-Reactive Protein 7.3 mg/L (<10.0) 02/02/20 23:22 NT-Pro-B Natriuret Pep 74940 pg/mL (<125) H 02/02/20 16:38 Total Protein 6.1 g/dL (6.3-8.2) L 02/05/20 10:18 Albumin 3.0 g/dL (3.5-5.0) L 02/05/20 10:18 TSH 1.64 uIU/mL (0.47-4.68) 02/02/20 16:38 Free T4 1.09 ng/dL (0.78-2.19) 02/02/20 16:38 Free T3 pg/mL 3.02 pg/mL (2.77-5.27) 02/02/20 16:38 Urine Color YELLOW 02/02/20 16:38 Urine Appearance CLOUDY 02/02/20 16:38 Urine pH 5.0 (5.0-9.0) 02/02/20 16:38 Ur Specific [place] 1.021 02/02/20 16:38 Urine Protein >=500 mg/dL (NEGATIVE) H 02/02/20 16:38 Urine Glucose (UA) >=500 mg/dL (NEGATIVE) H 02/02/20 16:38 Urine Ketones NEGATIVE mg/dL (NEGATIVE) 02/02/20 16:38 Urine Blood NEGATIVE (NEGATIVE) 02/02/20 16:38 Urine Nitrite NEGATIVE (NEGATIVE) 02/02/20 16:38 Urine Bilirubin NEGATIVE (NEGATIVE) 02/02/20 16:38 Urine Urobilinogen NEGATIVE mg/dL (<2.0) 02/02/20 16:38 Ur Leukocyte Esterase SMALL (NEGATIVE) H 02/02/20 16:38 Urine WBC (Auto) 153 /HPF 02/02/20 16:38 Urine RBC (Auto) 4 /HPF 02/02/20 16:38 Urine Bacteria (Auto) 3+ /HPF 02/02/20 16:38 Urine WBC Clumps FEW /HPF 02/02/20 16:38 Squamous Epi Cells Auto 2 /HPF 02/02/20 16:38 Urine Mucus (Auto) RARE /LPF 02/02/20 16:38 Urine Creatinine 73.9 mg/dL (15-278) 02/02/20 16:38 Protein/Creatinin Ratio 15.7 mg/mg (0.0-0.2) H 02/02/20 16:38 Urine Total Protein 1159.2 mg/dL (<12) H 02/02/20 16:38 Urine Ascorbic Acid NEGATIVE (NEGATIVE) 02/02/20 16:38 Fluid Type PLEURAL 02/03/20 13:45 Fluid Source LUNG 02/03/20 13:45 Fluid Color STRAW 02/03/20 13:45 Fluid Appearance CLEAR 02/03/20 13:45 Fluid Viscosity LIQUID 02/03/20 13:45 Fluid WBC 131 /uL 02/03/20 13:45 Fluid RBC 770 /uL 02/03/20 13:45 Fluid Seg Neutrophils 6 % 02/03/20 13:45 Fluid Lymphocytes 63 % 02/03/20 13:45 Fluid Monocytes 31 % 02/03/20 13:45 Fluid Eosinophils 0 % 02/03/20 13:45 Fluid Basophils 0 % 02/03/20 13:45 Fluid Glucose 273 mg/dL (.) 02/03/20 13:45 Fluid Total Protein 0.7 g/dL (.) 02/03/20 13:45 Fluid Albumin 0.3 g/dL (Not Estab.) 02/03/20 13:45 Fluid LDH 67 IU/L (.) 02/03/20 13:45 Fluid Amylase 10 U/L (.) 02/03/20 13:45 COVID-19 Source See comment 02/02/20 23:18 COVID-19 (SURENDRA) Not Detected (Not Detect) 02/02/20 23:18 Influenza A (Rapid) NEGATIVE (NEGATIVE) 02/02/20 22:40 Influenza B (Rapid) NEGATIVE (NEGATIVE) 02/02/20 22:40 Group A Strep Rapid NEGATIVE (NEGATIVE) 02/02/20 22:40 Slides for Path Review SEE COMMENT 02/03/20 13:45 02/02/20 02/02/20 16:38 23:22 Troponin I 0.081 NT-Pro-B Natriuret Pep 33689 H Impressions: Chest CT 02/02/20 00:00 IMPRESSION: Moderate bilateral pleural effusions with bilateral atelectasis and consolidation and mild enlargement of the mediastinal lymph nodes. Findings are similar in appearance to prior study dated April 05, 2018. Possibility of a superimposed infectious process is not excluded and clinical correlation is advised. Lung Scan-VQ NM 02/02/20 00:00 IMPRESSION: NORMAL PERFUSION LUNG SCAN. Chest X-Ray 02/02/20 15:39 IMPRESSION: Cannot exclude left lower lobe pneumonia. Thoracentesis Ultrasound 02/03/20 03:46 IMPRESSION: SUCCESSFUL LEFT THORACENTESIS USING ULTRASOUND GUIDANCE. Chest X-Ray 02/03/20 13:56 IMPRESSION: Cardiomegaly with pulmonary edema. No pneumothorax. Chest X-Ray 02/03/20 15:55 IMPRESSION: Decreasing pulmonary edema. No pneumothorax. Chest X-Ray 02/05/20 00:00 IMPRESSION: Improved aeration compared to prior. Mild residual congestive change. Stroke Is this a Stroke Patient?: No Acute Heart Failure Is this a Heart Failure Patient?: Yes Documentation of LVEF assessment?: Yes LVEF: LVEF Less Than or Equal to 35% Anticoagulant Therapy: Yes Discharged on Evidence-Based Beta Blockers: Yes Discharged on ARNI?: Yes Discharged on ARB?: N/A-Discharged on ARNI For LVEF <35%, discharged on Aldosterone Antagonist?: Yes Follow-up Appointment scheduled within 7 days?: Yes
[2020-02-06 16:59] VITALS: BP 104/54
[2020-02-06] MEDS ORDERED: INSULIN GLARGINE,HUM.REC.ANLOG 1,000 UNIT/10 ML VIAL (PYX) SUBCUT ONE (17:09)
[2020-02-06] MEDS ORDERED: INSULIN GLARGINE,HUM.REC.ANLOG 1,000 UNIT/10 ML VIAL SUBCUT SCH (18:00)
== END 2020-02-06 18:41 | disposition home or self-care (01) | DRG 291 ==
LOC: ER 14:37 → EH 16:10 → OBSVTOIN 21:46 → EH 22:46 → 3W 02-03 21:43 → 3S 02-04 17:15
PROVIDERS: ADMIT Internal Medicine; ATTEND Internal Medicine
PROC: 0W9B3ZZ Drainage of Left Pleural Cavity, Percutaneous Approach (ICD-10-PCS; principal; 2020-02-03)
DX: I50.43 Acute on chronic combined systolic (congestive) and diastolic (congestive) heart failure (principal); J18.9 Pneumonia, unspecified organism; N04.9 Nephrotic syndrome with unspecified morphologic changes; J90 Pleural effusion, not elsewhere classified; Z79.01 Long term (current) use of anticoagulants; E11.21 Type 2 diabetes mellitus with diabetic nephropathy; I25.10 Atherosclerotic heart disease of native coronary artery without angina pectoris; I48.91 Unspecified atrial fibrillation; R80.9 Proteinuria, unspecified; E78.5 Hyperlipidemia, unspecified; J44.9 Chronic obstructive pulmonary disease, unspecified; M19.90 Unspecified osteoarthritis, unspecified site; F32.9 Major depressive disorder, single episode, unspecified; N18.31 Chronic kidney disease, stage 3a; Z11.59 Encounter for screening for other viral diseases; Z79.4 Long term (current) use of insulin; Z79.899 Other long term (current) drug therapy; Z95.810 Presence of automatic (implantable) cardiac defibrillator; Z83.3 Family history of diabetes mellitus; Z82.49 Family history of ischemic heart disease and other diseases of the circulatory system
CPT/HCPCS: 32555; 36415; 71045; 71250; 78580; 80048; 80053; 80076; 81001; 82042; 82150; 82550; 82570; 82728; 82945; 82962; 83036; 83615; 83880; 83986; 84156; 84157; 84439; 84443; 84481; 84484; 85025; 85379; 85384; 85610; 85730; 86140; 87040; 87070; 87075; 87101; 87205; 87635; 87804; 87880; 89050; 93306; A9540; C9803; G0378; G0379; J0696; J1815; J1940; J1956; J3490; J7050; Q9969

== ENCOUNTER 2020-02-29 17:17 | Inpatient (IN) | payer MEDICARE, MEDICAID ==
[2020-02-29 18:07] LABS: ABSOLUTE EOSINOPHILS # (AUTO) 0.2 10^3/uL (0.0-0.6); ABSOLUTE LYMPHOCYTES (AUTO) 1.7 10^3/uL (0.5-4.7); ABSOLUTE MONOCYTES (AUTO) 0.5 10^3/uL (0.1-1.4); ABSOLUTE NEUT (AUTO) 3.8 10^3/uL (1.7-8.2); BASOPHILS % (AUTO) 0.5 % (0-2); EOSINOPHILS % (AUTO) 3.4 % (0-6); HEMOGLOBIN 12.4 g/dL (12.0-15.5); MEAN CORPUSCULAR HEMOGLOBIN 26.6 pg (27.0-33.4); MEAN CORPUSCULAR HGB CONC 30.9 g/dL (32.0-36.0); MEAN CORPUSCULAR VOLUME 86 fl (80-97); MONOCYTES % (AUTO) 7.9 % (3-13); PLATELET COUNT 205 10^3/uL (150-450); RED BLOOD COUNT 4.65 10^6/uL (3.72-5.28); RED CELL DISTRIBUTION WIDTH 18.8 % (11.5-14.0); SEGMENTED NEUTROPHILS % (AUTO) 61.2 % (42-78); TOTAL CELLS COUNTED % (AUTO) 100 %; WHITE BLOOD COUNT 6.2 10^3/uL (4.0-10.5)
[2020-02-29 18:13] LABS: ALBUMIN 3.2 g/dL (3.5-5.0); ALKALINE PHOSPHATASE 146 U/L (38-126); ASPARTATE AMINO TRANSFERASE 29 U/L (14-36); BILIRUBIN,DIRECT 0.1 mg/dL (0.0-0.4); BILIRUBIN,TOTAL 0.6 mg/dL (0.2-1.3); BLOOD UREA NITROGEN 25 mg/dL (7-20); CALCIUM 9.2 mg/dL (8.4-10.2); CHLORIDE 111 mmol/L (98-107); GLUCOSE 202 mg/dL (75-110); TOTAL PROTEIN 6.5 g/dL (6.3-8.2)
[2020-02-29 18:18] LABS: CARBON DIOXIDE 26 mmol/L (22-30)
[2020-02-29 18:20] LABS: ANION GAP 4 (5-19)
--- NOTE | 2020-02-29 18:24 | RADIOLOGY REPORT (SQ) ---
EXAM DESCRIPTION: CHEST SINGLE VIEW IMAGES COMPLETED DATE/TIME: 02/29/2020 6:13 pm REASON FOR STUDY: sob COMPARISON: Chest radiographs 02/05/2020. . EXAM PARAMETERS: NUMBER OF VIEWS: One view. TECHNIQUE: Single frontal radiographic view of the chest acquired. RADIATION DOSE: NA LIMITATIONS: None. FINDINGS: LUNGS AND PLEURA: Obscuration of the left hemidiaphragm. No pneumothorax. MEDIASTINUM AND HILAR STRUCTURES: No masses. Contour normal. HEART AND VASCULAR STRUCTURES: Cardiomegaly. Mildly increased pulmonary vascular markings. BONES: No acute findings. HARDWARE: Left chest wall biventricular cardiac pacing device. OTHER: No other significant finding. IMPRESSION: Obscuration of the left hemidiaphragm which may be attributed to pleural effusion, atele ctasis and/or infection. Cardiomegaly. Mild pulmonary vascular congestion. TECHNICAL DOCUMENTATION: JOB ID: [id number] 2010 [employer]- All Rights Reserved Reading location - IP/workstation name: [email or web address]
[2020-02-29] MEDS ORDERED: FUROSEMIDE INJ/PF 40 MG/4 ML SDV IV ONE (20:07)
[2020-02-29] MEDS ORDERED: CEFTRIAXONE 1 GM/D5W RTU 1 GM/50 ML RTUPB IV ONE (20:09)
[2020-02-29] MEDS ORDERED: AZITHROMYCIN INJ 500 MG VIAL IV ONE (20:09)
--- NOTE | 2020-02-29 21:43 | ER Document Report ---
ED Respiratory Problem - General Chief Complaint: Shortness Of Breath Stated Complaint: TROUBLE BREATHING Time Seen by Provider: 02/29/20 17:25 TRAVEL OUTSIDE OF THE [place] IN LAST 30 DAYS: No - HPI Notes: Patient is a 69-year-old female with a past medical history of CHF who presents with shortness of breath. From reports, she has been short of breath for the past 4 days. EMS was called. When they arrived, patient was short of breath. She ambulated to the bathroom and her pulse ox dropped to 60%. They placed her on 4 L and it only raised to 88% so they put her on CPAP. Patient denies any cough or cold symptoms. She states she has some bilateral leg swelling. She states she has been compliant with her medication. Denies any chest pain. - Related Data Allergies/Adverse Reactions: No Known Allergies Allergy (Verified 11/22/18 17:34) Past Medical History - General Information source: Patient, Emergency Med Personnel - Social History Smoking Status: Unknown if Ever Smoked Family History: CAD, DM, Hypertension - Past Medical History Cardiac Medical History: Reports: Hx Atrial Fibrillation, Hx Congestive Heart Failure, Hx Hypercholesterolemia, Hx Hypertension Pulmonary Medical History: Reports: Hx Asthma, Hx COPD Denies: Hx Tuberculosis Neurological Medical History: Denies: Hx Seizures Endocrine Medical History: Reports: Hx Diabetes Mellitus Type 2. Denies: Hx Diabetes Mellitus Type 1, Hx Hyperthyroidism, Hx Hypothyroidism Renal/ Medical History: Denies: Hx Peritoneal Dialysis GI Medical History: Denies: Hx Cirrhosis, Hx Crohn's Disease, Hx Hepatitis, Hx Ulcerative Colitis Musculoskeletal Medical History: Reports Hx Arthritis, Denies Hx Gout Skin Medical History: Denies Hx Eczema, Denies Hx Psoriasis Psychiatric Medical History: Reports: Hx Depression Infectious Medical History: Denies: Hx Hepatitis Past Surgical History: Reports: Hx Appendectomy, Hx Section - x2, Hx Orthopedic Surgery - toe. Denies: Hx Hysterectomy - Immunizations Immunizations up to date: Yes Hx Diphtheria, Pertussis, Tetanus Vaccination: Yes - 2011 Hx Pneumococcal Vaccination: 12/17/10 Review of Systems - Review of Systems -: Yes ROS unobtainable due to patient's medical condition Physical Exam - Vital signs Vitals: Resp Pulse Ox 16 99 02/29/20 17:20 02/29/20 17:20 - General In distress: Mild Notes: VITAL SIGNS: Within normal limits. On CPAP. GENERAL: Mild respiratory distress, now on CPAP. HEAD: Normal with no signs of head trauma. EYES: conjunctiva normal, no discharge. EARS: Hearing grossly intact. NECK: Normal range of motion, no tenderness CHEST: Coarse lung sounds bilaterally. CARDIAC: Regular rate and rhythm. VASCULAR: Mild pitting edema bilaterally. ABDOMEN: Normal and soft with no tenderness LYMPATHTIC: No lymphadenopathy noted. MUSCULOSKELETAL: Good range of motion of all major joints. Extremities without clubbing, cyanosis or edema. NEUROLOGICAL: Alert and oriented x 3. No focal sensory or strength deficits. Speech normal. Follows commands appropriately. SKIN: Normal appearance with no rashes or lesions. Course - Re-evaluation Re-evalutation: 03/01/20 01:43 Patient was placed on CPAP. She is doing well with this. She still appears to have some increased work of breathing. Her x-ray looks like there could be fluid overload versus infection. I did give her Lasix as well as community- acquired antibiotics due to her shortness of breath. She will be tested for Covid. Patient will be admitted to the hospital. She is very agreeable to this. - Vital Signs Vital signs: Temp Pulse Resp BP Pulse Ox 98.0 F 23 H 150/100 H 100 02/29/20 18:11 02/29/20 23:01 02/29/20 23:01 03/01/20 00:30 - Laboratory Results Result Diagrams: 02/29/20 17:20 02/29/20 17:20 Laboratory Results Interpreted: 02/29/20 02/29/20 02/29/20 17:20 17:20 17:20 MCH 26.6 L MCHC 30.9 L RDW 18.8 H VBG pH Chloride 111 H Anion Gap 4 L BUN 25 H Creatinine 1.55 H Est GFR ( Amer) 40 L Est GFR (MDRD) Non-Af 33 L Glucose 202 H Magnesium 2.9 H ALT 41 H Alkaline Phosphatase 146 H NT-Pro-B Natriuret Pep 35953 H Albumin 3.2 L 02/29/20 17:20 MCH MCHC RDW VBG pH 7.26 L Chloride Anion Gap BUN Creatinine Est GFR ( Amer) Est GFR (MDRD) Non-Af Glucose Magnesium ALT Alkaline Phosphatase NT-Pro-B Natriuret Pep Albumin Critical Laboratory Results Reviewed: No Critical Results - Radiology Results Critical Radiology Results Reviewed: No Critical Results - EKG Interpretation by Me Additional EKG results interpreted by me: 02/29/20 21:45 Atrial sensed ventricular paced rhythm. No previous EKG immediately available for comparison. Critical Care Note - Critical Care Note Total time excluding time spent on procedures (mins): 45 Comments: Upon my evaluation, this patient had a high probability of imminent or life- threatening deterioration due to respiratory distress, which required my direct attention, intervention, and personal management. I have personally provided 45 minutes of critical care time. Time includes review of laboratory data, radiology results, discussion with consultants, and monitoring for potential decompensation. Interventions were performed as documented above. Discharge - Discharge Clinical Impression: Acute exacerbation of CHF (congestive heart failure) Qualifiers: Heart failure type: unspecified Qualified Code(s): I50.9 - Heart failure, unspecified Dyspnea Qualifiers: Dyspnea type: acute respiratory distress Qualified Code(s): R06.03 - Acute respiratory distress Condition: Stable Disposition: ADMITTED INPATIENT Admitting Provider: Arely Unit Admitted: [facility]
[2020-02-29 21:53] LABS: VENOUS BLOOD BASE EXCESS -2.8 mmol/L; VENOUS BLOOD HCO3 25.1 mmol/L (20-32); VENOUS BLOOD PCO2 57.1 mmHg (35-63); VENOUS BLOOD PH 7.26 (7.30-7.42)
--- NOTE | 2020-03-01 00:23 | EKG REPORT ---
SEVERITY:- ABNORMAL ECG - ATRIAL-SENSED VENTRICULAR-PACED RHYTHM : Confirmed by: Renzo Ashraf 01-Mar-2020 00:22:00
[2020-03-01] MEDS ORDERED: DEXTROSE 40% GEL 15 GM TUBE X 2 PO PRN (03:00)
[2020-03-01] MEDS ORDERED: DEXTROSE 50%-WATER SYRINGE 25 GM/50 ML DOSE IV PRN (03:00)
[2020-03-01] MEDS ORDERED: GLUCAGON,HUMAN RECOMB 1 MG INJ IM PRN ×2 (03:00→19:12)
[2020-03-01] MEDS ORDERED: DEXTROSE 50%-WATER SYRINGE 12.5 GM/25 ML DOSE IV PRN (03:00)
[2020-03-01] MEDS ORDERED: DEXTROSE 40% GEL 15 GM TUBE PO PRN ×3 (03:00→19:12)
[2020-03-01] MEDS: OXYCODONE-ACETAMINOPHEN 5-325 MG TABLET PO PRN ×3 (03:35→22:04)
[2020-03-01] MEDS: PANTOPRAZOLE SODIUM 40 MG TABLET.DR PO SCH (05:26)
[2020-03-01] MEDS ORDERED: [UNRECOGNIZED DRUG - OTHER] SUBCUT SCH (08:45)
[2020-03-01] MEDS: FUROSEMIDE INJ/PF 40 MG/4 ML SDV IV SCH (09:14)
[2020-03-01] MEDS: METOPROLOL SUCCINATE 50 MG TAB.SR.24H PO SCH (09:15)
[2020-03-01] MEDS: INSULIN LISPRO 100 UNIT/ML 3 ML VIAL SUBCUT SCH ×6 (09:15→23:02)
[2020-03-01 09:32] LABS: INTERNATIONAL RATION (INR) 1.04; PROTHROMBIN TIME 13.8 SEC (11.4-15.4)
[2020-03-01 09:33] LABS: PARTIAL THROMBOPLASTIN TIME 25.8 SEC (23.5-35.8)
[2020-03-01 09:37] LABS: ARTERIAL BLOOD H2CO3 0.99 mmol/L (1.05-1.35); ARTERIAL BLOOD HCO3 20.7 mmol/L (20-24); ARTERIAL BLOOD O2 SATURATION 78.4 % (94-98); ARTERIAL BLOOD PH 7.42 (7.35-7.45); ARTERIAL BLOOD PO2 41.5 mmHg (80-100); ARTERIAL BLOOD TOTAL CO2 21.7 mmol/L (21-25)
[2020-03-01 09:57] LABS: CREATINE KINASE MB 7.96 ng/mL (<4.55); TROPONIN I 0.023 ng/mL
[2020-03-01] MEDS ORDERED: ENOXAPARIN SODIUM INJ 40 MG/0.4 ML DISP.SYRIN SUBCUT SCH (10:00)
[2020-03-01] MEDS ORDERED: (PENDING PHARMACY ID) (Dapagliflozin Propanediol [Farxiga] 10 MG Tablet) PO SCH (10:00)
[2020-03-01 10:01] LABS: FREE T4 (FREE THYROXINE) 1.11 ng/dL (0.78-2.19)
[2020-03-01 10:15] LABS: THYROID STIMULATING HORMONE 0.52 uIU/mL (0.47-4.68)
[2020-03-01 11:50] LABS: APPEARANCE,URINE SLIGHTLY-CLOUDY; BILIRUBIN,URINE NEGATIVE (NEGATIVE); COLOR,URINE YELLOW; GLUCOSE, URINE >=500 mg/dL (NEGATIVE); KETONES,URINE NEGATIVE (NEGATIVE); LEUKOCYTE ESTERASE,URINE NEGATIVE (NEGATIVE); NITRITE,URINE NEGATIVE (NEGATIVE); PROTEIN,URINE >=500 mg/dL (NEGATIVE); URINE SPECIFIC GRAVITY 1.022; UROBILINOGEN,URINE NEGATIVE mg/dL (<2.0)
[2020-03-01] MEDS ORDERED: (PENDING PHARMACY ID) (Oxycodone Hcl/Acetaminophen [Oxycodone-Acetaminophen 10-325] 1 EACH PO PRN (12:48)
[2020-03-01] MEDS ORDERED: ALBUTEROL SULFATE HFA (90 MCG/PUFF) 8 GM MDI IH PRN (12:48)
[2020-03-01] MEDS ORDERED: (PENDING PHARMACY ID) (Insulin Aspart [Novolog] 100 UNIT/ML Vial) SQ SCH (13:00)
[2020-03-01] MEDS ORDERED: (PENDING PHARMACY ID) (Omeprazole [Omeprazole] 40 MG Capsule.Dr) PO SCH (13:00)
[2020-03-01] MEDS: GABAPENTIN 400 MG CAPSULE PO SCH ×2 (13:26→22:01)
[2020-03-01] MEDS: APIXABAN 5 MG TABLET PO SCH ×2 (13:26→22:01)
[2020-03-01] MEDS: CLOPIDOGREL BISULFATE 75 MG TABLET PO SCH (13:26)
[2020-03-01 15:46] LABS: CREATINE KINASE MB 9.02 ng/mL (<4.55); TROPONIN I 0.029 ng/mL
[2020-03-01] MEDS: SACUBITRIL/VALSARTAN 97 MG/103 MG TABLET PO SCH (17:27)
[2020-03-01] MEDS ORDERED: DEXTROSE 50%-WATER 25 GM/50 ML DISP.SYRIN IV PRN ×2 (19:12)
--- NOTE | 2020-03-01 19:52 | PDOC H&P ---
History of Present Illness Admission Date/PCP: 02/29/20 22:07 TRAVIS SUBRAMANIAN MD History of Present Illness: EDUARDA JARRELL is a 69 year old female, she has a history of ischemic cardiom yopathy, chronic systolic congestive heart failure, estimated ejection fraction left ventricle 20%, echo from 02/03/2020.She came to the emergency room for evaluation of shortness of breath, The arterial blood gas on FiO2 45%, pH 7.42, PO2 41.5, PCO2 33, bicarbonate 20.7 chest x-ray consistent with CHF. She was just recently admitted to this hospital for similar presentation, she is chronically on anticoagulant Eliquis for chronic atrial fibrillation, unlikely to have pulmonary embolism. She has type 2 diabetes mellitus complicated with nephrotic syndrome.She had a rapid SARS-CoV-2 infection, it was negative Past Medical History Cardiac Medical History: Reports: Atrial Fibrillation, Hyperlipidema, Hypertension, Other - Chronic systolic congestive heart failure Pulmonary Medical History: Reports: Asthma, Chronic Obstructive Pulmonary Disease (COPD) Endocrine Medical History: Reports: Diabetes Mellitus Type 2 GI Medical History: Musculoskeltal Medical History: Reports: Arthritis Psychiatric Medical History: Reports: Depression Past Surgical History Past Surgical History: Reports: Appendectomy, Section - x2, Orthopedic Surgery - toe Social History Smoking Status: Never Smoker Frequency of Alcohol Use: None Hx Recreational Drug Use: No Drugs: None Hx Prescription Drug Abuse: No Family History Family History: CAD, DM, Hypertension Parental Family History Reviewed: Yes Children Family History Reviewed: Yes Sibling(s) Family History Reviewed.: Yes Medication/Allergy Home Medications: RX: Insulin Glargine/Lixisenatide [Soliqua 100 Unit-33 Mcg/ml Pen] 30 units SQ QAM 06/03/19 RX: Oxycodone HCl/Acetaminophen [Oxycodone-Acetaminophen 10-325] 1 each PO QIDP PRN 06/04/19 RX: Metoprolol Succinate [Toprol Xl 50 mg Tab.sr] 50 mg PO DAILY #90 tab.sr.24h 06/11/19 RX: Spironolactone [Aldactone 25 mg Tablet] 25 mg PO DAILY #90 tablet 06/11/19 Apixaban [Eliquis 5 mg Tablet] 5 mg PO BID 02/03/20 RX: Clopidogrel Bisulfate [Plavix 75 mg Tablet] 75 mg PO DAILY 02/03/20 RX: Dapagliflozin Propanediol [Farxiga] 10 mg PO DAILY 02/03/20 RX: Gabapentin [Neurontin 400 mg Capsule] 800 mg PO Q8 02/03/20 RX: Insulin Aspart [Novolog Flexpen] 0 unit PO .SLIDING SCALE 02/03/20 RX: Omeprazole 40 mg PO DAILY 02/03/20 RX: Albuterol Sulfate [Ventolin Hfa 8 gm Mdi] 2 puff IH Q6HP PRN inhaler 02/06/20 RX: Furosemide [Lasix 40 mg Tablet] 40 mg PO Q8H #90 tablet 02/06/20 Insulin Aspart [Novolog] 12 unit SQ BID 03/01/20 Allergies/Adverse Reactions: No Known Allergies Allergy (Verified 11/22/18 17:34) Review of Systems Constitutional: ABSENT: chills, fever(s), headache(s), weight gain, weight loss Eyes: ABSENT: visual disturbances Ears: ABSENT: hearing changes Cardiovascular: PRESENT: dyspnea on exertion, edema Respiratory: PRESENT: dyspnea Gastrointestinal: ABSENT: abdominal pain, constipation, diarrhea, hematemesis, hematochezia, nausea, vomiting Genitourinary: ABSENT: dysuria, hematuria Musculoskeletal: ABSENT: joint swelling Integumentary: ABSENT: rash, wounds Neurological: ABSENT: abnormal gait, abnormal speech, confusion, dizziness, focal weakness, syncope Psychiatric: ABSENT: anxiety, depression, homidical ideation, suicidal ideation Endocrine: ABSENT: cold intolerance, heat intolerance, menstrual abnormalities, polydipsia, polyuria Hematologic/Lymphatic: ABSENT: easy bleeding, easy bruising, lymphadenopathy Physical Exam Vital Signs: Temp Pulse Resp BP Pulse Ox 98.6 F 71 18 134/77 H 96 03/01/20 15:48 03/01/20 15:48 03/01/20 15:48 03/01/20 15:48 03/01/20 15:48 Intake & Output 02/29/20 03/01/20 03/02/20 06:59 06:59 06:59 Intake Total 590 900 Output Total 500 650 Balance 90 250 Weight 108.6 kg 108.6 kg General appearance: PRESENT: no acute distress, well-developed, well-nourished Head exam: PRESENT: atraumatic, normocephalic Eye exam: PRESENT: conjunctiva pink, EOMI, PERRLA Ear exam: PRESENT: normal external ear exam Mouth exam: PRESENT: moist, tongue midline Neck exam: PRESENT: full ROM Respiratory exam: PRESENT: crackles Cardiovascular exam: PRESENT: RRR, +S1, +S2 Pulses: PRESENT: normal dorsalis pedis pul, +2 pedal pulses bilateral Vascular exam: PRESENT: normal capillary refill GI/Abdominal exam: PRESENT: normal bowel sounds, soft Rectal exam: PRESENT: deferred Neurological exam: PRESENT: alert, CN II-XII grossly intact Psychiatric exam: PRESENT: appropriate affect, normal mood Skin exam: PRESENT: dry, intact, warm Results Laboratory Results: 02/29/20 17:20 02/29/20 17:20 02/29/20 03/01/20 03/01/20 17:20 09:09 09:09 Carbonic Acid HCO3/H2CO3 Ratio ABG pH ABG pCO2 ABG pO2 ABG HCO3 ABG O2 Saturation ABG Base Excess VBG pH 7.26 L VBG pCO2 57.1 VBG HCO3 25.1 VBG Base Excess -2.8 FiO2 Magnesium 2.5 H TSH 0.52 Free T4 1.11 Urine Color Urine Appearance Urine pH Ur Specific [place] Urine Protein Urine Glucose (UA) Urine Ketones Urine Blood Urine Nitrite Ur Leukocyte Esterase Urine WBC (Auto) Urine RBC (Auto) 03/01/20 03/01/20 09:11 10:00 Carbonic Acid 0.99 L HCO3/H2CO3 Ratio 20:1 ABG pH 7.42 ABG pCO2 33.0 L ABG pO2 41.5 L ABG HCO3 20.7 ABG O2 Saturation 78.4 L ABG Base Excess -3.0 VBG pH VBG pCO2 VBG HCO3 VBG Base Excess FiO2 44% Magnesium TSH Free T4 Urine Color YELLOW Urine Appearance SLIGHTLY-CLOUDY Urine pH 6.0 Ur Specific [place] 1.022 Urine Protein >=500 H Urine Glucose (UA) >=500 H Urine Ketones NEGATIVE Urine Blood SMALL H Urine Nitrite NEGATIVE Ur Leukocyte Esterase NEGATIVE Urine WBC (Auto) 3 Urine RBC (Auto) 2 02/29/20 02/29/20 03/01/20 17:20 17:20 09:09 Creatine Kinase 324 H CK-MB (CK-2) Troponin I 0.035 NT-Pro-B Natriuret Pep [id number] H 03/01/20 03/01/20 03/01/20 09:09 14:56 14:56 Creatine Kinase 297 H CK-MB (CK-2) 7.96 H 9.02 H Troponin I 0.023 0.029 NT-Pro-B Natriuret Pep Impressions: Chest X-Ray 02/29/20 17:54 IMPRESSION: Obscuration of the left hemidiaphragm which may be attributed to pleural effusion, atelectasis and/or infection. Cardiomegaly. Mild pulmonary vascular congestion. Assessment & Plan - Diagnosis (1) Acute hypoxemic respiratory failure Is this a current diagnosis for this admission?: Yes Plan: Patient required NIPPV to support breathing (2) Acute combined systolic (congestive) and diastolic (congestive) heart failure Is this a current diagnosis for this admission?: Yes Plan: She has acute systolic heart failure,Patient is optimized on medical therapy, device therapy including AICD and also pacemaker placement (3) Type 2 diabetes mellitus with diabetic chronic kidney disease Qualifiers: Diabetes mellitus custodial insulin use: with custodial use Chronic kidney disease stage: stage 3 (moderate) Is this a current diagnosis for this admission?: Yes (4) Nephrotic syndrome Is this a current diagnosis for this admission?: Yes - Time Time Spent: Greater than 70 Minutes Critical Time spent with patient: 35 or more minutes Medications reviewed and adjusted accordingly: Yes Anticipated Discharge Disposition: Home, Self Care Anticipated Discharge Timeframe: within 72 hours - Inpatient Certification Based on my medical assessment, after consideration of the patient's comorbidities, presenting symptoms, or acuity I expect that the services needed warrant INPATIENT care.: Yes I certify that my determination is in accordance with my understanding of Medicare's requirements for reasonable and necessary INPATIENT services [42 CFR 412.3e].: Yes
[2020-03-01 21:50] LABS: CREATINE KINASE MB 7.84 ng/mL (<4.55); TROPONIN I 0.025 ng/mL
[2020-03-02] MEDS: GABAPENTIN 400 MG CAPSULE PO SCH ×3 (06:03→21:44)
[2020-03-02] MEDS: PANTOPRAZOLE SODIUM 40 MG TABLET.DR PO SCH (06:03)
[2020-03-02] MEDS: SACUBITRIL/VALSARTAN 97 MG/103 MG TABLET PO SCH ×2 (06:03→17:35)
[2020-03-02 06:36] LABS: ABSOLUTE EOSINOPHILS # (AUTO) 0.3 10^3/uL (0.0-0.6); ABSOLUTE LYMPHOCYTES (AUTO) 2.3 10^3/uL (0.5-4.7); ABSOLUTE MONOCYTES (AUTO) 0.6 10^3/uL (0.1-1.4); ABSOLUTE NEUT (AUTO) 3.5 10^3/uL (1.7-8.2); BASOPHILS % (AUTO) 0.4 % (0-2); EOSINOPHILS % (AUTO) 3.8 % (0-6); HEMATOCRIT 36.6 % (36.0-47.0); HEMOGLOBIN 11.5 g/dL (12.0-15.5); LYMPHOCYTES % (AUTO) 33.9 % (13-45); MEAN CORPUSCULAR HEMOGLOBIN 26.6 pg (27.0-33.4); MEAN CORPUSCULAR HGB CONC 31.4 g/dL (32.0-36.0); MEAN CORPUSCULAR VOLUME 85 fl (80-97); MONOCYTES % (AUTO) 9.1 % (3-13); PLATELET COUNT 171 10^3/uL (150-450); RED BLOOD COUNT 4.32 10^6/uL (3.72-5.28); RED CELL DISTRIBUTION WIDTH 18.7 % (11.5-14.0); SEGMENTED NEUTROPHILS % (AUTO) 52.8 % (42-78); TOTAL CELLS COUNTED % (AUTO) 100 %; WHITE BLOOD COUNT 6.6 10^3/uL (4.0-10.5)
[2020-03-02 07:00] LABS: ALBUMIN 2.6 g/dL (3.5-5.0); ALKALINE PHOSPHATASE 120 U/L (38-126); ANION GAP 5 (5-19); ASPARTATE AMINO TRANSFERASE 23 U/L (14-36); BILIRUBIN,DIRECT 0.2 mg/dL (0.0-0.4); BILIRUBIN,TOTAL 0.6 mg/dL (0.2-1.3); BLOOD UREA NITROGEN 34 mg/dL (7-20); CALCIUM 8.8 mg/dL (8.4-10.2); CARBON DIOXIDE 23 mmol/L (22-30); CHLORIDE 111 mmol/L (98-107); CHOLESTEROL 245.75 mg/dL (0-200); GLUCOSE 153 mg/dL (75-110); POTASSIUM 4.3 mmol/L (3.6-5.0); TOTAL PROTEIN 5.4 g/dL (6.3-8.2); TRIGLYCERIDES 134 mg/dL (<150)
[2020-03-02 07:13] LABS: DIRECT LDL 129 mg/dL (<100)
[2020-03-02] MEDS: INSULIN LISPRO 100 UNIT/ML 3 ML VIAL SUBCUT SCH ×9 (08:14→21:38)
[2020-03-02] MEDS: METOPROLOL SUCCINATE 50 MG TAB.SR.24H PO SCH (10:02)
[2020-03-02] MEDS: CLOPIDOGREL BISULFATE 75 MG TABLET PO SCH (10:02)
[2020-03-02] MEDS: APIXABAN 5 MG TABLET PO SCH ×2 (10:03→21:45)
[2020-03-02] MEDS: FUROSEMIDE INJ/PF 40 MG/4 ML SDV IV SCH (10:03)
[2020-03-02] MEDS: OXYCODONE-ACETAMINOPHEN 5-325 MG TABLET PO PRN (11:05)
--- NOTE | 2020-03-02 22:42 | PDOC PROGRESS REPORT ---
Subjective Date:: 03/02/20 Subjective:: Patient seen by the bedside, she was admitted yesterday, she is diuresing quite well Reason For Visit: ACUTE SYSTOLIC HEART FAILURE Physical Exam Vital Signs: Temp Pulse Resp BP Pulse Ox 98.2 F 67 16 105/48 L 100 03/02/20 20:40 03/02/20 19:10 03/02/20 19:10 03/02/20 19:10 03/02/20 19:10 Intake & Output 03/01/20 03/02/20 03/03/20 06:59 06:59 06:59 Intake Total 590 940 890 Output Total 500 1075 Balance 90 -135 890 Weight 108.6 kg 101.9 kg General appearance: PRESENT: no acute distress Eye exam: PRESENT: PERRLA Respiratory exam: PRESENT: clear to auscultation rodrigue Cardiovascular exam: PRESENT: +S1, +S2 GI/Abdominal exam: PRESENT: soft Neurological exam: PRESENT: alert Results Laboratory Results: 03/02/20 06:02 03/02/20 06:02 03/02/20 03/02/20 06:02 06:02 WBC 6.6 RBC 4.32 Hgb 11.5 L Hct 36.6 MCV 85 MCH 26.6 L MCHC 31.4 L RDW 18.7 H Plt Count 171 Seg Neutrophils % 52.8 Sodium 138.8 Potassium 4.3 Chloride 111 H Carbon Dioxide 23 Anion Gap 5 BUN 34 H Creatinine 1.82 H Est GFR ( Amer) 34 L Glucose 153 H Calcium 8.8 Total Bilirubin 0.6 AST 23 Alkaline Phosphatase 120 Total Protein 5.4 L Albumin 2.6 L Triglycerides 134 Cholesterol 245.75 H LDL Cholesterol Direct 129 H VLDL Cholesterol 27.0 HDL Cholesterol 73 02/29/20 02/29/20 03/01/20 17:20 17:20 09:09 Creatine Kinase 324 H CK-MB (CK-2) Troponin I 0.035 NT-Pro-B Natriuret Pep [id number] H 03/01/20 03/01/20 03/01/20 09:09 14:56 14:56 Creatine Kinase 297 H CK-MB (CK-2) 7.96 H 9.02 H Troponin I 0.023 0.029 NT-Pro-B Natriuret Pep 03/01/20 03/01/20 21:03 21:03 Creatine Kinase 266 H CK-MB (CK-2) 7.84 H Troponin I 0.025 NT-Pro-B Natriuret Pep Impressions: Chest X-Ray 02/29/20 17:54 IMPRESSION: Obscuration of the left hemidiaphragm which may be attributed to pleural effusion, atelectasis and/or infection. Cardiomegaly. Mild pulmonary vascular congestion. Assessment & Plan - Diagnosis (1) Acute hypoxemic respiratory failure Is this a current diagnosis for this admission?: Yes (2) Acute combined systolic (congestive) and diastolic (congestive) heart failure Is this a current diagnosis for this admission?: Yes Plan: Continue present anti-CHF therapy (3) Type 2 diabetes mellitus with diabetic chronic kidney disease Qualifiers: Diabetes mellitus retirement insulin use: with long term care phlebotomist use Chronic kidney disease stage: stage 3 (moderate) Is this a current diagnosis for this admission?: Yes (4) Nephrotic syndrome Is this a current diagnosis for this admission?: Yes - Time Time Spent with patient: 25-34 minutes Level of Care: IMCU Anticipated discharge: Home Anticipated DC Timeframe: Other
[2020-03-03] MEDS: PANTOPRAZOLE SODIUM 40 MG TABLET.DR PO SCH (06:26)
[2020-03-03] MEDS: SACUBITRIL/VALSARTAN 97 MG/103 MG TABLET PO SCH ×2 (06:26→17:27)
[2020-03-03] MEDS: GABAPENTIN 400 MG CAPSULE PO SCH ×3 (06:26→23:28)
[2020-03-03 07:37] LABS: ABSOLUTE EOSINOPHILS # (AUTO) 0.3 10^3/uL (0.0-0.6); ABSOLUTE LYMPHOCYTES (AUTO) 1.8 10^3/uL (0.5-4.7); ABSOLUTE MONOCYTES (AUTO) 0.6 10^3/uL (0.1-1.4); ABSOLUTE NEUT (AUTO) 2.7 10^3/uL (1.7-8.2); BASOPHILS % (AUTO) 0.5 % (0-2); EOSINOPHILS % (AUTO) 5.1 % (0-6); HEMATOCRIT 39.5 % (36.0-47.0); HEMOGLOBIN 12.1 g/dL (12.0-15.5); LYMPHOCYTES % (AUTO) 32.4 % (13-45); MEAN CORPUSCULAR HEMOGLOBIN 25.9 pg (27.0-33.4); MEAN CORPUSCULAR HGB CONC 30.6 g/dL (32.0-36.0); MEAN CORPUSCULAR VOLUME 85 fl (80-97); MONOCYTES % (AUTO) 11.5 % (3-13); PLATELET COUNT 183 10^3/uL (150-450); RED BLOOD COUNT 4.66 10^6/uL (3.72-5.28); RED CELL DISTRIBUTION WIDTH 18.6 % (11.5-14.0); SEGMENTED NEUTROPHILS % (AUTO) 50.5 % (42-78); TOTAL CELLS COUNTED % (AUTO) 100 %; WHITE BLOOD COUNT 5.4 10^3/uL (4.0-10.5)
[2020-03-03] MEDS: INSULIN LISPRO 100 UNIT/ML 3 ML VIAL SUBCUT SCH ×6 (08:07→23:28)
[2020-03-03] MEDS: METOPROLOL SUCCINATE 50 MG TAB.SR.24H PO SCH (09:21)
[2020-03-03] MEDS: CLOPIDOGREL BISULFATE 75 MG TABLET PO SCH (09:21)
[2020-03-03] MEDS: APIXABAN 5 MG TABLET PO SCH ×2 (09:22→23:28)
[2020-03-03] MEDS: FUROSEMIDE INJ/PF 40 MG/4 ML SDV IV SCH (09:22)
[2020-03-03] MEDS: OXYCODONE-ACETAMINOPHEN 5-325 MG TABLET PO PRN (09:41)
--- NOTE | 2020-03-03 19:20 | PDOC PROGRESS REPORT ---
Subjective Date:: 03/03/20 Subjective:: Patient is alert,She feels better Reason For Visit: ACUTE SYSTOLIC HEART FAILURE Physical Exam Vital Signs: Temp Pulse Resp BP Pulse Ox 98.2 F 66 18 132/65 H 99 03/03/20 17:22 03/03/20 17:22 03/03/20 17:22 03/03/20 17:22 03/03/20 17:22 Intake & Output 03/02/20 03/03/20 03/04/20 06:59 06:59 06:59 Intake Total 940 1020 1523 Output Total 1075 675 700 Balance -135 345 823 Weight 101.9 kg 95.1 kg General appearance: PRESENT: no acute distress Eye exam: PRESENT: PERRLA Respiratory exam: PRESENT: clear to auscultation rodrigue Cardiovascular exam: PRESENT: +S1, +S2, systolic murmur GI/Abdominal exam: PRESENT: soft Neurological exam: PRESENT: alert, CN II-XII grossly intact Results Laboratory Results: 03/03/20 06:47 03/02/20 06:02 03/03/20 06:47 WBC 5.4 RBC 4.66 Hgb 12.1 Hct 39.5 MCV 85 MCH 25.9 L MCHC 30.6 L RDW 18.6 H Plt Count 183 Seg Neutrophils % 50.5 03/01/20 10:00 Clean Catch Midstream Urine Culture - Final 7,000 col/ml 02/29/20 02/29/20 03/01/20 17:20 17:20 09:09 Creatine Kinase 324 H CK-MB (CK-2) Troponin I 0.035 NT-Pro-B Natriuret Pep [id number] H 03/01/20 03/01/20 03/01/20 09:09 14:56 14:56 Creatine Kinase 297 H CK-MB (CK-2) 7.96 H 9.02 H Troponin I 0.023 0.029 NT-Pro-B Natriuret Pep 03/01/20 03/01/20 21:03 21:03 Creatine Kinase 266 H CK-MB (CK-2) 7.84 H Troponin I 0.025 NT-Pro-B Natriuret Pep Impressions: Chest X-Ray 02/29/20 17:54 IMPRESSION: Obscuration of the left hemidiaphragm which may be attributed to pleural effusion, atelectasis and/or infection. Cardiomegaly. Mild pulmonary vascular congestion. Assessment & Plan - Diagnosis (1) Acute hypoxemic respiratory failure Is this a current diagnosis for this admission?: Yes Plan: Continue supplemental oxygen (2) Acute combined systolic (congestive) and diastolic (congestive) heart failure Is this a current diagnosis for this admission?: Yes Plan: Continue present anti-CHF therapy, Consult cardiology (3) Type 2 diabetes mellitus with diabetic chronic kidney disease Qualifiers: Diabetes mellitus intermediate frame tender insulin use: with intermediate frame tender use Chronic kidney disease stage: stage 3 (moderate) Is this a current diagnosis for this admission?: Yes (4) Nephrotic syndrome Is this a current diagnosis for this admission?: Yes - Time Time Spent with patient: 35 or more minutes Level of Care: IMCU Medications reviewed and adjusted accordingly: Yes - Inpatient Certification Based on my medical assessment, after consideration of the patient's comorbidities, presenting symptoms, or acuity I expect that the services needed warrant INPATIENT care.: Yes I certify that my determination is in accordance with my understanding of Medicare's requirements for reasonable and necessary INPATIENT services [42 CFR 412.3e].: Yes
[2020-03-04] MEDS: GABAPENTIN 400 MG CAPSULE PO SCH ×3 (06:01→21:25)
[2020-03-04] MEDS: SACUBITRIL/VALSARTAN 97 MG/103 MG TABLET PO SCH ×2 (06:01→17:45)
[2020-03-04] MEDS: PANTOPRAZOLE SODIUM 40 MG TABLET.DR PO SCH (06:01)
[2020-03-04] MEDS: INSULIN LISPRO 100 UNIT/ML 3 ML VIAL SUBCUT SCH ×6 (08:35→21:25)
[2020-03-04] MEDS: CLOPIDOGREL BISULFATE 75 MG TABLET PO SCH (10:18)
[2020-03-04] MEDS: APIXABAN 5 MG TABLET PO SCH ×2 (10:19→21:25)
[2020-03-04] MEDS: METOPROLOL SUCCINATE 50 MG TAB.SR.24H PO SCH (10:19)
[2020-03-04] MEDS: FUROSEMIDE INJ/PF 40 MG/4 ML SDV IV SCH (10:20)
[2020-03-04] MEDS: OXYCODONE-ACETAMINOPHEN 5-325 MG TABLET PO PRN ×2 (15:25→21:25)
--- NOTE | 2020-03-04 21:15 | PDOC CONSULTATION ---
Consultation-Blank Consultation: CARDIOLOGY CONSULTATION by Dr. Radha Terry on 03/04/2020. Patient seen at 2 PM. 60 minutes spent as patient more than 50% time spent in direct patient care. CONSULT REQUESTING PHYSICIAN: Dr. Fischer REASON FOR CONSULTATION: Acute on chronic congestive heart failure. HISTORY of PRESENT ILLNESS: Patient is a 69-year-old Afro-British female with known history of dilated cardiomyopathy with severely reduced LV ejection fraction and history of AICD placement a few months ago, hypertension, diabetes mellitus and chronic kidney disease, history of asthma/COPD and history of sleep apnea on CPAP states since the last 4 days have been having progressively increasing shortness of breath with rest shortness of breath with PND orthopnea and leg edema. Note patient not a very good historian. She also states that she has been having wheezing and and cough which is not productive of any sputum. She denies any palpitations or syncope. There is no firing of her AICD. She has no chest pain or discomfort. The patient was seen in the emergency room to have hypoxia with O2 sat of 80%. On FiO2 of 45% the patient's PO2 was low at 41.5. The patient improved with treatment and now is transitioned to nasal cannula. There is no arrhythmias seen on the monitor. The patient also has a history of chronic atrial fibrillation on chronic anticoagulation therapy. The patient's rapid Covid19 testing was negative. Past Medical History Cardiac Medical History: Reports: Atrial Fibrillation, Hyperlipidema, Hypertension, Other - Chronic systolic congestive heart failure Pulmonary Medical History: Reports: Asthma, Chronic Obstructive Pulmonary Disease (COPD) Endocrine Medical History: Reports: Diabetes Mellitus Type 2 GI Medical History: Musculoskeltal Medical History: Reports: Arthritis Psychiatric Medical History: Reports: Depression Past Surgical History Past Surgical History: Reports: Appendectomy, Section - x2, Orthopedic Surgery -toe. History of cardiac catheterization. History of AICD placement. Social History Smoking Status: Never Smoker Frequency of Alcohol Use: None Hx Recreational Drug Use: No Drugs: None Hx Prescription Drug Abuse: No Family History Family History: CAD, DM, Hypertension Parental Family History Reviewed: Yes Children Family History Reviewed: Yes Sibling(s) Family History Reviewed.: Yes Medication/Allergy Home Medications: RX: Insulin Glargine/Lixisenatide [Soliqua 100 Unit-33 Mcg/ml Pen] 30 units SQ QAM 06/03/19 RX: Oxycodone HCl/Acetaminophen [Oxycodone-Acetaminophen 10-325] 1 each PO QIDP PRN 06/04/19 RX: Metoprolol Succinate [Toprol Xl 50 mg Tab.sr] 50 mg PO DAILY #90 tab.sr.24h 06/11/19 RX: Spironolactone [Aldactone 25 mg Tablet] 25 mg PO DAILY #90 tablet 06/11/19 Apixaban [Eliquis 5 mg Tablet] 5 mg PO BID 02/03/20 RX: Clopidogrel Bisulfate [Plavix 75 mg Tablet] 75 mg PO DAILY 02/03/20 RX: Dapagliflozin Propanediol [Farxiga] 10 mg PO DAILY 02/03/20 RX: Gabapentin [Neurontin 400 mg Capsule] 800 mg PO Q8 02/03/20 RX: Insulin Aspart [Novolog Flexpen] 0 unit PO .SLIDING SCALE 02/03/20 RX: Omeprazole 40 mg PO DAILY 02/03/20 RX: Albuterol Sulfate [Ventolin Hfa 8 gm Mdi] 2 puff IH Q6HP PRN inhaler 02/06/20 RX: Furosemide [Lasix 40 mg Tablet] 40 mg PO Q8H #90 tablet 02/06/20 Insulin Aspart [Novolog] 12 unit SQ BID 03/01/20 Allergies/Adverse Reactions: No Known Allergies Allergy (Verified 11/22/18 17:34) RESUSCITATION STATUS: The patient is a full code. Her daughter is a surrogate healthcare decision maker. Review of Systems Constitutional: ABSENT: chills, fever(s), headache(s), weight gain, weight loss Eyes: ABSENT: visual disturbances Ears: ABSENT: hearing changes Cardiovascular: PRESENT: dyspnea on exertion, edema Respiratory: PRESENT: dyspnea Gastrointestinal: ABSENT: abdominal pain, constipation, diarrhea, hematemesis, hematochezia, nausea, vomiting Genitourinary: ABSENT: dysuria, hematuria Musculoskeletal: ABSENT: joint swelling Integumentary: ABSENT: rash, wounds Neurological: ABSENT: abnormal gait, abnormal speech, confusion, dizziness, focal weakness, syncope Psychiatric: ABSENT: anxiety, depression, homidical ideation, suicidal ideation Endocrine: ABSENT: cold intolerance, heat intolerance, menstrual abnormalities, polydipsia, polyuria Hematologic/Lymphatic: ABSENT: easy bleeding, easy bruising, lymphadenopathy. Current Medications Generic Name Dose Route Start Last Admin Trade Name Freq PRN Reason Stop Dose Admin Albuterol 2 puff 03/01/20 12:48 Albuterol Sulfate Hfa (90 Mcg/Puff) 8 Gm Mdi IH 03/31/20 12:47 Q6HP PRN SHORTNESS OF BREATH Apixaban 5 mg 03/01/20 13:00 03/04/20 21:25 Apixaban 5 Mg Tablet PO 03/31/20 12:59 5 mg Q12 CRISTELA Administration Clopidogrel Bisulfate 75 mg 03/01/20 13:00 03/04/20 10:18 Clopidogrel Bisulfate 75 Mg Tablet PO 03/31/20 12:59 75 mg DAILY CRISTELA Administration Dextrose 12.5 gm 03/01/20 19:12 Dextrose 50%-Water 25 Gm/50 Ml Disp.Syrin IV 03/31/20 19:11 PRN PRN FOR BG 50-69 IN ALERT PATIENT Protocol Dextrose 25 gm 03/01/20 19:12 Dextrose 50%-Water 25 Gm/50 Ml Disp.Syrin IV 03/31/20 19:11 PRN PRN PER PROTOCOL Protocol Furosemide 40 mg 03/01/20 10:00 03/04/20 10:20 Furosemide Inj/Pf 40 Mg/4 Ml Sdv IV 03/31/20 09:59 40 mg DAILY CRISTELA Administration Gabapentin 800 mg 03/01/20 14:00 03/04/20 21:25 Gabapentin 400 Mg Capsule PO 03/31/20 13:59 800 mg Q8 CRISTELA Administration Glucagon 1 mg 03/01/20 19:12 Glucagon,Human Recomb 1 Mg Inj IM 03/31/20 19:11 PRN PRN Evaluate for BG < 70 Protocol Glucose 15 gm 03/01/20 19:12 Dextrose 40% Gel 15 Gm Tube PO 03/31/20 19:11 PRN PRN FOR BG 50-69 IN ALERT PATIENT Protocol Glucose 30 gm 03/01/20 19:12 Dextrose 40% Gel 15 Gm Tube PO 03/31/20 19:11 PRN PRN FOR BG < 50 IN ALERT PATIENT Protocol Insulin Human Lispro 0 - 12 unit 03/01/20 08:00 03/04/20 21:25 Insulin Lispro 100 Unit/Ml 3 Ml Vial SUBCUT 03/31/20 07:59 2 unit ACHS CRISTELA Administration Protocol Insulin Human Lispro 12 unit 03/01/20 16:00 03/04/20 17:45 Insulin Lispro 100 Unit/Ml 3 Ml Vial SUBCUT 03/31/20 15:59 12 unit BIDACBS CRISTELA Administration Metoprolol Succinate 50 mg 03/01/20 10:00 03/04/20 10:19 Metoprolol Succinate 50 Mg Tab.Sr.24h PO 03/31/20 09:59 50 mg DAILY CRISTELA Administration Oxycodone/Acetaminophen 1 tab 03/01/20 02:53 03/04/20 21:25 Oxycodone-Acetaminophen 5-325 Mg Tablet PO 03/08/20 02:52 1 tab Q4HP PRN Administration PAIN Pantoprazole Sodium 40 mg 03/01/20 06:00 03/04/20 06:01 Pantoprazole Sodium 40 Mg Tablet. PO 03/31/20 05:59 40 mg Q6AM CRISTELA Administration Patient Own Medication 30 units 03/01/20 08:45 Insulin Glargine/Lixisenatide [Soliqua 100 Unit-33 Mcg/Ml Pen] SUBCUT 03/31/20 08:44 .QAM CRISTELA Patient Own Medication 10 mg 03/01/20 10:00 Dapagliflozin Propanediol [Farxiga] PO 03/31/20 09:59 .DAILY CRISTELA Sacubitril/Valsartan 1 tab 03/01/20 18:00 03/04/20 17:45 Sacubitril/Valsartan 97 Mg/103 Mg Tablet PO 03/31/20 17:59 1 tab Q12A CRISTELA Administration Sodium Chloride 2.5 ml 03/01/20 08:45 03/04/20 21:28 Normal Saline Flush 2.5 Ml Disp.Syrin IV 03/31/20 08:44 Not Given Q8 CRISTELA Discontinued Medications Generic Name Dose Route Start Last Admin Trade Name Freq PRN Reason Stop Dose Admin Azithromycin 500 mg 02/29/20 20:09 02/29/20 21:57 Azithromycin Inj 500 Mg Vial IV 02/29/20 20:10 500 mg IVBAG (ED) ONE Administration Enoxaparin Sodium 40 mg 03/01/20 10:00 Enoxaparin Sodium Inj 40 Mg/0.4 Ml Disp.Syrin SUBCUT 03/31/20 09:59 DAILY CRISTELA Furosemide 40 mg 02/29/20 20:07 02/29/20 20:45 Furosemide Inj/Pf 40 Mg/4 Ml Sdv IV 02/29/20 20:08 40 mg NOW ONE Administration Ceftriaxone Sodium/Dextrose 1 gm in 50 mls @ 100 mls/hr 02/29/20 20:09 02/29/20 21:22 Rocephin Rtu 1 Gm/D5w 50 Ml Premix IV 02/29/20 20:38 Infused NOW ONE Infusion Insulin Human Lispro 0 - 12 unit 03/01/20 22:00 03/02/20 16:59 Insulin Lispro 100 Unit/Ml 3 Ml Vial SUBCUT 03/31/20 21:59 Not Given ACHS [facility] Protocol Patient Own Medication 40 mg 03/01/20 13:00 03/01/20 15:29 Omeprazole [Omeprazole] PO 03/31/20 12:59 Not Given DAILY [facility] Patient Own Medication 1 each 03/01/20 12:48 Oxycodone Hcl/Acetaminophen [Oxycodone-Acetaminophen 10-325] PO QIDP PRN FOR PAIN PHYSICAL EXAMINATION: The patient is moderately obese. At present in no acute distress. Selected Entries 03/04/20 12:20 Temperature 98.4 F Temperature Oral Source Pulse Rate 71 Respiratory 18 Rate Blood Pressure 140/82 H Blood Pressure 101 Mean BP Location Right Arm BP Position Supine O2 Sat by Pulse 98 Oximetry Oxygen Flow 3.00 Rate Oxygen Delivery Nasal Cannula Method HEAD: Is atraumatic normocephalic. EYES: Pupils equal round regular reactive light accommodation. Extraocular movements are normal there is no conjunctival pallor. There is no scleral icterus. EARS: Tympanic membranes are intact. External auditory canals are clear. NOSE: There is no deviated nasal septum. There is no inflammation of the nasal mucous membrane. MOUTH: Mucous membranes of mouth are moist. The patient's oral cavity is modified Mallampati classification class IV. There is no bleeding from the gums. THROAT: There is no exudates in the throat. There is no redness of the oropharynx. SKIN: There is no skin rashes or skin lesions. There is no particular ecchymosis. NECK: Is supple. There is no definite JVD. Carotids are equal there is no bruit. There is no lymphadenopathy. There is no accessory muscle respiration use. There is no goiter. Trachea central. LUNGS: There is diminished air entry prolonged expiration without any rhonchi rales or wheezing. On percussion there is hyperresonance throughout. On palpation there is no chest wall tenderness. HEART: S1-S2 is heard. There is no S3 gallop. There is no S4 gallop. There is murmur of mitral regurgitation and tricuspid regurgitation present. There is no rub. ABDOMEN: Is obese there is no paraspinal megaly. Bowel sounds are well heard. There is no tender areas of masses. EXTREMITIES: Both femoral pulses diminished. Leg pulses are diminished. There is no femoral bruits. There is 1- pedal edema. There is no DVT or cellulitis. There is no calf tenderness. 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 PSYCHIATRIC: The patient judgment insight seems to be intact although the patient's is slightly of slow mentation. Labs- Entire Visit 02/29/20 02/29/20 02/29/20 17:20 17:20 17:20 WBC 6.2 RBC 4.65 Hgb 12.4 Hct 40.0 MCV 86 MCH 26.6 L MCHC 30.9 L RDW 18.8 H Plt Count 205 Lymph % (Auto) 27.0 [place] % (Auto) 7.9 Eos % (Auto) 3.4 Baso % (Auto) 0.5 Absolute Neuts (auto) 3.8 Absolute Lymphs (auto) 1.7 Absolute Monos (auto) 0.5 Absolute Eos (auto) 0.2 Absolute Basos (auto) 0.0 Seg Neutrophils % 61.2 PT INR APTT Carbonic Acid HCO3/H2CO3 Ratio ABG pH ABG pCO2 ABG pO2 ABG HCO3 ABG Total CO2 ABG O2 Saturation ABG Base Excess VBG pH VBG pCO2 VBG HCO3 VBG Base Excess FiO2 Sodium 141.0 Potassium 4.0 Chloride 111 H Carbon Dioxide 26 Anion Gap 4 L BUN 25 H Creatinine 1.55 H Est GFR ( Amer) 40 L Est GFR (MDRD) Non-Af 33 L Glucose 202 H POC Glucose Hemoglobin A1c % Lactic Acid Calcium 9.2 Magnesium 2.9 H Total Bilirubin 0.6 Direct Bilirubin 0.1 Neonat Total Bilirubin Not Reportable Neonat Direct Bilirubin Not Reportable Neonat Indirect Bili Not Reportable AST 29 ALT 41 H Alkaline Phosphatase 146 H Creatine Kinase CK-MB (CK-2) Troponin I 0.035 NT-Pro-B Natriuret Pep Total Protein 6.5 Albumin 3.2 L Triglycerides Cholesterol LDL Cholesterol Direct VLDL Cholesterol HDL Cholesterol TSH Free T4 Urine Color Urine Appearance Urine pH Ur Specific [place] Urine Protein Urine Glucose (UA) Urine Ketones Urine Blood Urine Nitrite Urine Bilirubin Urine Urobilinogen Ur Leukocyte Esterase Urine WBC (Auto) Urine RBC (Auto) U Hyaline Cast (Auto) Squamous Epi Cells Auto Urine Mucus (Auto) Urine Ascorbic Acid Influenza A (RT-PCR) Influenza B (RT-PCR) RSV (RT-PCR) SARS-CoV-2 Rap RNA(RT-PCR) 02/29/20 02/29/20 02/29/20 17:20 17:20 17:20 WBC RBC Hgb Hct MCV MCH MCHC RDW Plt Count Lymph % (Auto) [place] % (Auto) Eos % (Auto) Baso % (Auto) Absolute Neuts (auto) Absolute Lymphs (auto) Absolute Monos (auto) Absolute Eos (auto) Absolute Basos (auto) Seg Neutrophils % PT INR APTT Carbonic Acid HCO3/H2CO3 Ratio ABG pH ABG pCO2 ABG pO2 ABG HCO3 ABG Total CO2 ABG O2 Saturation ABG Base Excess VBG pH 7.26 L VBG pCO2 57.1 VBG HCO3 25.1 VBG Base Excess -2.8 FiO2 Sodium Potassium Chloride Carbon Dioxide Anion Gap BUN Creatinine Est GFR ( Amer) Est GFR (MDRD) Non-Af Glucose POC Glucose Hemoglobin A1c % Lactic Acid 1.4 Calcium Magnesium Total Bilirubin Direct Bilirubin Neonat Total Bilirubin Neonat Direct Bilirubin Neonat Indirect Bili AST ALT Alkaline Phosphatase Creatine Kinase CK-MB (CK-2) Troponin I NT-Pro-B Natriuret Pep 27295 H Total Protein Albumin Triglycerides Cholesterol LDL Cholesterol Direct VLDL Cholesterol HDL Cholesterol TSH Free T4 Urine Color Urine Appearance Urine pH Ur Specific [place] Urine Protein Urine Glucose (UA) Urine Ketones Urine Blood Urine Nitrite Urine Bilirubin Urine Urobilinogen Ur Leukocyte Esterase Urine WBC (Auto) Urine RBC (Auto) U Hyaline Cast (Auto) Squamous Epi Cells Auto Urine Mucus (Auto) Urine Ascorbic Acid Influenza A (RT-PCR) Influenza B (RT-PCR) RSV (RT-PCR) SARS-CoV-2 Rap RNA(RT-PCR) 02/29/20 02/29/20 03/01/20 19:29 22:23 07:51 WBC RBC Hgb Hct MCV MCH MCHC RDW Plt Count Lymph % (Auto) [place] % (Auto) Eos % (Auto) Baso % (Auto) Absolute Neuts (auto) Absolute Lymphs (auto) Absolute Monos (auto) Absolute Eos (auto) Absolute Basos (auto) Seg Neutrophils % PT INR APTT Carbonic Acid HCO3/H2CO3 Ratio ABG pH ABG pCO2 ABG pO2 ABG HCO3 ABG Total CO2 ABG O2 Saturation ABG Base Excess VBG pH VBG pCO2 VBG HCO3 VBG Base Excess FiO2 Sodium Potassium Chloride Carbon Dioxide Anion Gap BUN Creatinine Est GFR ( Amer) Est GFR (MDRD) Non-Af Glucose POC Glucose 190 H Hemoglobin A1c % Lactic Acid Calcium Magnesium Total Bilirubin Direct Bilirubin Neonat Total Bilirubin Neonat Direct Bilirubin Neonat Indirect Bili AST ALT Alkaline Phosphatase Creatine Kinase CK-MB (CK-2) Troponin I NT-Pro-B Natriuret Pep Total Protein Albumin Triglycerides Cholesterol LDL Cholesterol Direct VLDL Cholesterol HDL Cholesterol TSH Free T4 Urine Color Urine Appearance Urine pH Ur Specific [place] Urine Protein Urine Glucose (UA) Urine Ketones Urine Blood Urine Nitrite Urine Bilirubin Urine Urobilinogen Ur Leukocyte Esterase Urine WBC (Auto) Urine RBC (Auto) U Hyaline Cast (Auto) Squamous Epi Cells Auto Urine Mucus (Auto) Urine Ascorbic Acid Influenza A (RT-PCR) Cancelled NEGATIVE Influenza B (RT-PCR) Cancelled NEGATIVE RSV (RT-PCR) Cancelled NEGATIVE SARS-CoV-2 Rap RNA(RT-PCR) Cancelled NEGATIVE 03/01/20 03/01/20 03/01/20 09:09 09:09 09:09 WBC RBC Hgb Hct MCV MCH MCHC RDW Plt Count Lymph % (Auto) [place] % (Auto) Eos % (Auto) Baso % (Auto) Absolute Neuts (auto) Absolute Lymphs (auto) Absolute Monos (auto) Absolute Eos (auto) Absolute Basos (auto) Seg Neutrophils % PT 13.8 INR 1.04 APTT 25.8 Carbonic Acid HCO3/H2CO3 Ratio ABG pH ABG pCO2 ABG pO2 ABG HCO3 ABG Total CO2 ABG O2 Saturation ABG Base Excess VBG pH VBG pCO2 VBG HCO3 VBG Base Excess FiO2 Sodium Potassium Chloride Carbon Dioxide Anion Gap BUN Creatinine Est GFR ( Amer) Est GFR (MDRD) Non-Af Glucose POC Glucose Hemoglobin A1c % Lactic Acid Calcium Magnesium 2.5 H Total Bilirubin Direct Bilirubin Neonat Total Bilirubin Neonat Direct Bilirubin Neonat Indirect Bili AST ALT Alkaline Phosphatase Creatine Kinase 324 H CK-MB (CK-2) Troponin I NT-Pro-B Natriuret Pep Total Protein Albumin Triglycerides Cholesterol LDL Cholesterol Direct VLDL Cholesterol HDL Cholesterol TSH 0.52 Free T4 1.11 Urine Color Urine Appearance Urine pH Ur Specific [place] Urine Protein Urine Glucose (UA) Urine Ketones Urine Blood Urine Nitrite Urine Bilirubin Urine Urobilinogen Ur Leukocyte Esterase Urine WBC (Auto) Urine RBC (Auto) U Hyaline Cast (Auto) Squamous Epi Cells Auto Urine Mucus (Auto) Urine Ascorbic Acid Influenza A (RT-PCR) Influenza B (RT-PCR) RSV (RT-PCR) SARS-CoV-2 Rap RNA(RT-PCR) 03/01/20 03/01/20 03/01/20 09:09 09:11 10:00 WBC RBC Hgb Hct MCV MCH MCHC RDW Plt Count Lymph % (Auto) [place] % (Auto) Eos % (Auto) Baso % (Auto) Absolute Neuts (auto) Absolute Lymphs (auto) Absolute Monos (auto) Absolute Eos (auto) Absolute Basos (auto) Seg Neutrophils % PT INR APTT Carbonic Acid 0.99 L HCO3/H2CO3 Ratio 20:1 ABG pH 7.42 ABG pCO2 33.0 L ABG pO2 41.5 L ABG HCO3 20.7 ABG Total CO2 21.7 ABG O2 Saturation 78.4 L ABG Base Excess -3.0 VBG pH VBG pCO2 VBG HCO3 VBG Base Excess FiO2 44% Sodium Potassium Chloride Carbon Dioxide Anion Gap BUN Creatinine Est GFR ( Amer) Est GFR (MDRD) Non-Af Glucose POC Glucose Hemoglobin A1c % Lactic Acid Calcium Magnesium Total Bilirubin Direct Bilirubin Neonat Total Bilirubin Neonat Direct Bilirubin Neonat Indirect Bili AST ALT Alkaline Phosphatase Creatine Kinase CK-MB (CK-2) 7.96 H Troponin I 0.023 NT-Pro-B Natriuret Pep Total Protein Albumin Triglycerides Cholesterol LDL Cholesterol Direct VLDL Cholesterol HDL Cholesterol TSH Free T4 Urine Color YELLOW Urine Appearance SLIGHTLY-CLOUDY Urine pH 6.0 Ur Specific [place] 1.022 Urine Protein >=500 H Urine Glucose (UA) >=500 H Urine Ketones NEGATIVE Urine Blood SMALL H Urine Nitrite NEGATIVE Urine Bilirubin NEGATIVE Urine Urobilinogen NEGATIVE Ur Leukocyte Esterase NEGATIVE Urine WBC (Auto) 3 Urine RBC (Auto) 2 U Hyaline Cast (Auto) 1 Squamous Epi Cells Auto 4 Urine Mucus (Auto) RARE Urine Ascorbic Acid NEGATIVE Influenza A (RT-PCR) Influenza B (RT-PCR) RSV (RT-PCR) SARS-CoV-2 Rap RNA(RT-PCR) 03/01/20 03/01/20 03/01/20 11:34 14:56 14:56 WBC RBC Hgb Hct MCV MCH MCHC RDW Plt Count Lymph % (Auto) [place] % (Auto) Eos % (Auto) Baso % (Auto) Absolute Neuts (auto) Absolute Lymphs (auto) Absolute Monos (auto) Absolute Eos (auto) Absolute Basos (auto) Seg Neutrophils % PT INR APTT Carbonic Acid HCO3/H2CO3 Ratio ABG pH ABG pCO2 ABG pO2 ABG HCO3 ABG Total CO2 ABG O2 Saturation ABG Base Excess VBG pH VBG pCO2 VBG HCO3 VBG Base Excess FiO2 Sodium Potassium Chloride Carbon Dioxide Anion Gap BUN Creatinine Est GFR ( Amer) Est GFR (MDRD) Non-Af Glucose POC Glucose 206 H Hemoglobin A1c % Lactic Acid Calcium Magnesium Total Bilirubin Direct Bilirubin Neonat Total Bilirubin Neonat Direct Bilirubin Neonat Indirect Bili AST ALT Alkaline Phosphatase Creatine Kinase 297 H CK-MB (CK-2) 9.02 H Troponin I 0.029 NT-Pro-B Natriuret Pep Total Protein Albumin Triglycerides Cholesterol LDL Cholesterol Direct VLDL Cholesterol HDL Cholesterol TSH Free T4 Urine Color Urine Appearance Urine pH Ur Specific [place] Urine Protein Urine Glucose (UA) Urine Ketones Urine Blood Urine Nitrite Urine Bilirubin Urine Urobilinogen Ur Leukocyte Esterase Urine WBC (Auto) Urine RBC (Auto) U Hyaline Cast (Auto) Squamous Epi Cells Auto Urine Mucus (Auto) Urine Ascorbic Acid Influenza A (RT-PCR) Influenza B (RT-PCR) RSV (RT-PCR) SARS-CoV-2 Rap RNA(RT-PCR) 03/01/20 03/01/20 03/01/20 15:49 21:03 21:03 WBC RBC Hgb Hct MCV MCH MCHC RDW Plt Count Lymph % (Auto) [place] % (Auto) Eos % (Auto) Baso % (Auto) Absolute Neuts (auto) Absolute Lymphs (auto) Absolute Monos (auto) Absolute Eos (auto) Absolute Basos (auto) Seg Neutrophils % PT INR APTT Carbonic Acid HCO3/H2CO3 Ratio ABG pH ABG pCO2 ABG pO2 ABG HCO3 ABG Total CO2 ABG O2 Saturation ABG Base Excess VBG pH VBG pCO2 VBG HCO3 VBG Base Excess FiO2 Sodium Potassium Chloride Carbon Dioxide Anion Gap BUN Creatinine Est GFR ( Amer) Est GFR (MDRD) Non-Af Glucose POC Glucose 286 H Hemoglobin A1c % Lactic Acid Calcium Magnesium Total Bilirubin Direct Bilirubin Neonat Total Bilirubin Neonat Direct Bilirubin Neonat Indirect Bili AST ALT Alkaline Phosphatase Creatine Kinase 266 H CK-MB (CK-2) 7.84 H Troponin I 0.025 NT-Pro-B Natriuret Pep Total Protein Albumin Triglycerides Cholesterol LDL Cholesterol Direct VLDL Cholesterol HDL Cholesterol TSH Free T4 Urine Color Urine Appearance Urine pH Ur Specific [place] Urine Protein Urine Glucose (UA) Urine Ketones Urine Blood Urine Nitrite Urine Bilirubin Urine Urobilinogen Ur Leukocyte Esterase Urine WBC (Auto) Urine RBC (Auto) U Hyaline Cast (Auto) Squamous Epi Cells Auto Urine Mucus (Auto) Urine Ascorbic Acid Influenza A (RT-PCR) Influenza B (RT-PCR) RSV (RT-PCR) SARS-CoV-2 Rap RNA(RT-PCR) 03/01/20 03/02/20 03/02/20 21:52 06:02 06:02 WBC 6.6 RBC 4.32 Hgb 11.5 L Hct 36.6 MCV 85 MCH 26.6 L MCHC 31.4 L RDW 18.7 H Plt Count 171 Lymph % (Auto) 33.9 [place] % (Auto) 9.1 Eos % (Auto) 3.8 Baso % (Auto) 0.4 Absolute Neuts (auto) 3.5 Absolute Lymphs (auto) 2.3 Absolute Monos (auto) 0.6 Absolute Eos (auto) 0.3 Absolute Basos (auto) 0.0 Seg Neutrophils % 52.8 PT INR APTT Carbonic Acid HCO3/H2CO3 Ratio ABG pH ABG pCO2 ABG pO2 ABG HCO3 ABG Total CO2 ABG O2 Saturation ABG Base Excess VBG pH VBG pCO2 VBG HCO3 VBG Base Excess FiO2 Sodium 138.8 Potassium 4.3 Chloride 111 H Carbon Dioxide 23 Anion Gap 5 BUN 34 H Creatinine 1.82 H Est GFR ( Amer) 34 L Est GFR (MDRD) Non-Af 28 L Glucose 153 H POC Glucose 150 H Hemoglobin A1c % Lactic Acid Calcium 8.8 Magnesium Total Bilirubin 0.6 Direct Bilirubin 0.2 Neonat Total Bilirubin Not Reportable Neonat Direct Bilirubin Not Reportable Neonat Indirect Bili Not Reportable AST 23 ALT 28 Alkaline Phosphatase 120 Creatine Kinase CK-MB (CK-2) Troponin I NT-Pro-B Natriuret Pep Total Protein 5.4 L Albumin 2.6 L Triglycerides 134 Cholesterol 245.75 H LDL Cholesterol Direct 129 H VLDL Cholesterol 27.0 HDL Cholesterol 73 TSH Free T4 Urine Color Urine Appearance Urine pH Ur Specific [place] Urine Protein Urine Glucose (UA) Urine Ketones Urine Blood Urine Nitrite Urine Bilirubin Urine Urobilinogen Ur Leukocyte Esterase Urine WBC (Auto) Urine RBC (Auto) U Hyaline Cast (Auto) Squamous Epi Cells Auto Urine Mucus (Auto) Urine Ascorbic Acid Influenza A (RT-PCR) Influenza B (RT-PCR) RSV (RT-PCR) SARS-CoV-2 Rap RNA(RT-PCR) 03/02/20 03/02/20 03/02/20 06:02 11:23 15:50 WBC RBC Hgb Hct MCV MCH MCHC RDW Plt Count Lymph % (Auto) [place] % (Auto) Eos % (Auto) Baso % (Auto) Absolute Neuts (auto) Absolute Lymphs (auto) Absolute Monos (auto) Absolute Eos (auto) Absolute Basos (auto) Seg Neutrophils % PT INR APTT Carbonic Acid HCO3/H2CO3 Ratio ABG pH ABG pCO2 ABG pO2 ABG HCO3 ABG Total CO2 ABG O2 Saturation ABG Base Excess VBG pH VBG pCO2 VBG HCO3 VBG Base Excess FiO2 Sodium Potassium Chloride Carbon Dioxide Anion Gap BUN Creatinine Est GFR ( Amer) Est GFR (MDRD) Non-Af Glucose POC Glucose 139 H 273 H Hemoglobin A1c % 8.5 H Lactic Acid Calcium Magnesium Total Bilirubin Direct Bilirubin Neonat Total Bilirubin Neonat Direct Bilirubin Neonat Indirect Bili AST ALT Alkaline Phosphatase Creatine Kinase CK-MB (CK-2) Troponin I NT-Pro-B Natriuret Pep Total Protein Albumin Triglycerides Cholesterol LDL Cholesterol Direct VLDL Cholesterol HDL Cholesterol TSH Free T4 Urine Color Urine Appearance Urine pH Ur Specific [place] Urine Protein Urine Glucose (UA) Urine Ketones Urine Blood Urine Nitrite Urine Bilirubin Urine Urobilinogen Ur Leukocyte Esterase Urine WBC (Auto) Urine RBC (Auto) U Hyaline Cast (Auto) Squamous Epi Cells Auto Urine Mucus (Auto) Urine Ascorbic Acid Influenza A (RT-PCR) Influenza B (RT-PCR) RSV (RT-PCR) SARS-CoV-2 Rap RNA(RT-PCR) 03/02/20 03/03/20 03/03/20 21:05 06:47 07:00 WBC 5.4 RBC 4.66 Hgb 12.1 Hct 39.5 MCV 85 MCH 25.9 L MCHC 30.6 L RDW 18.6 H Plt Count 183 Lymph % (Auto) 32.4 [place] % (Auto) 11.5 Eos % (Auto) 5.1 Baso % (Auto) 0.5 Absolute Neuts (auto) 2.7 Absolute Lymphs (auto) 1.8 Absolute Monos (auto) 0.6 Absolute Eos (auto) 0.3 Absolute Basos (auto) 0.0 Seg Neutrophils % 50.5 PT INR APTT Carbonic Acid HCO3/H2CO3 Ratio ABG pH ABG pCO2 ABG pO2 ABG HCO3 ABG Total CO2 ABG O2 Saturation ABG Base Excess VBG pH VBG pCO2 VBG HCO3 VBG Base Excess FiO2 Sodium Potassium Chloride Carbon Dioxide Anion Gap BUN Creatinine Est GFR ( Amer) Est GFR (MDRD) Non-Af Glucose POC Glucose 123 H 158 H Hemoglobin A1c % Lactic Acid Calcium Magnesium Total Bilirubin Direct Bilirubin Neonat Total Bilirubin Neonat Direct Bilirubin Neonat Indirect Bili AST ALT Alkaline Phosphatase Creatine Kinase CK-MB (CK-2) Troponin I NT-Pro-B Natriuret Pep Total Protein Albumin Triglycerides Cholesterol LDL Cholesterol Direct VLDL Cholesterol HDL Cholesterol TSH Free T4 Urine Color Urine Appearance Urine pH Ur Specific [place] Urine Protein Urine Glucose (UA) Urine Ketones Urine Blood Urine Nitrite Urine Bilirubin Urine Urobilinogen Ur Leukocyte Esterase Urine WBC (Auto) Urine RBC (Auto) U Hyaline Cast (Auto) Squamous Epi Cells Auto Urine Mucus (Auto) Urine Ascorbic Acid Influenza A (RT-PCR) Influenza B (RT-PCR) RSV (RT-PCR) SARS-CoV-2 Rap RNA(RT-PCR) 03/03/20 03/03/20 03/03/20 12:49 17:21 21:35 WBC RBC Hgb Hct MCV MCH MCHC RDW Plt Count Lymph % (Auto) [place] % (Auto) Eos % (Auto) Baso % (Auto) Absolute Neuts (auto) Absolute Lymphs (auto) Absolute Monos (auto) Absolute Eos (auto) Absolute Basos (auto) Seg Neutrophils % PT INR APTT Carbonic Acid HCO3/H2CO3 Ratio ABG pH ABG pCO2 ABG pO2 ABG HCO3 ABG Total CO2 ABG O2 Saturation ABG Base Excess VBG pH VBG pCO2 VBG HCO3 VBG Base Excess FiO2 Sodium Potassium Chloride Carbon Dioxide Anion Gap BUN Creatinine Est GFR ( Amer) Est GFR (MDRD) Non-Af Glucose POC Glucose 217 H 260 H 173 H Hemoglobin A1c % Lactic Acid Calcium Magnesium Total Bilirubin Direct Bilirubin Neonat Total Bilirubin Neonat Direct Bilirubin Neonat Indirect Bili AST ALT Alkaline Phosphatase Creatine Kinase CK-MB (CK-2) Troponin I NT-Pro-B Natriuret Pep Total Protein Albumin Triglycerides Cholesterol LDL Cholesterol Direct VLDL Cholesterol HDL Cholesterol TSH Free T4 Urine Color Urine Appearance Urine pH Ur Specific [place] Urine Protein Urine Glucose (UA) Urine Ketones Urine Blood Urine Nitrite Urine Bilirubin Urine Urobilinogen Ur Leukocyte Esterase Urine WBC (Auto) Urine RBC (Auto) U Hyaline Cast (Auto) Squamous Epi Cells Auto Urine Mucus (Auto) Urine Ascorbic Acid Influenza A (RT-PCR) Influenza B (RT-PCR) RSV (RT-PCR) SARS-CoV-2 Rap RNA(RT-PCR) 03/04/20 03/04/20 03/04/20 08:10 12:18 17:04 WBC RBC Hgb Hct MCV MCH MCHC RDW Plt Count Lymph % (Auto) [place] % (Auto) Eos % (Auto) Baso % (Auto) Absolute Neuts (auto) Absolute Lymphs (auto) Absolute Monos (auto) Absolute Eos (auto) Absolute Basos (auto) Seg Neutrophils % PT INR APTT Carbonic Acid HCO3/H2CO3 Ratio ABG pH ABG pCO2 ABG pO2 ABG HCO3 ABG Total CO2 ABG O2 Saturation ABG Base Excess VBG pH VBG pCO2 VBG HCO3 VBG Base Excess FiO2 Sodium Potassium Chloride Carbon Dioxide Anion Gap BUN Creatinine Est GFR ( Amer) Est GFR (MDRD) Non-Af Glucose POC Glucose 218 H 200 H 260 H Hemoglobin A1c % Lactic Acid Calcium Magnesium Total Bilirubin Direct Bilirubin Neonat Total Bilirubin Neonat Direct Bilirubin Neonat Indirect Bili AST ALT Alkaline Phosphatase Creatine Kinase CK-MB (CK-2) Troponin I NT-Pro-B Natriuret Pep Total Protein Albumin Triglycerides Cholesterol LDL Cholesterol Direct VLDL Cholesterol HDL Cholesterol TSH Free T4 Urine Color Urine Appearance Urine pH Ur Specific [place] Urine Protein Urine Glucose (UA) Urine Ketones Urine Blood Urine Nitrite Urine Bilirubin Urine Urobilinogen Ur Leukocyte Esterase Urine WBC (Auto) Urine RBC (Auto) U Hyaline Cast (Auto) Squamous Epi Cells Auto Urine Mucus (Auto) Urine Ascorbic Acid Influenza A (RT-PCR) Influenza B (RT-PCR) RSV (RT-PCR) SARS-CoV-2 Rap RNA(RT-PCR) 03/04/20 21:17 WBC RBC Hgb Hct MCV MCH MCHC RDW Plt Count Lymph % (Auto) [place] % (Auto) Eos % (Auto) Baso % (Auto) Absolute Neuts (auto) Absolute Lymphs (auto) Absolute Monos (auto) Absolute Eos (auto) Absolute Basos (auto) Seg Neutrophils % PT INR APTT Carbonic Acid HCO3/H2CO3 Ratio ABG pH ABG pCO2 ABG pO2 ABG HCO3 ABG Total CO2 ABG O2 Saturation ABG Base Excess VBG pH VBG pCO2 VBG HCO3 VBG Base Excess FiO2 Sodium Potassium Chloride Carbon Dioxide Anion Gap BUN Creatinine Est GFR ( Amer) Est GFR (MDRD) Non-Af Glucose POC Glucose 189 H Hemoglobin A1c % Lactic Acid Calcium Magnesium Total Bilirubin Direct Bilirubin Neonat Total Bilirubin Neonat Direct Bilirubin Neonat Indirect Bili AST ALT Alkaline Phosphatase Creatine Kinase CK-MB (CK-2) Troponin I NT-Pro-B Natriuret Pep Total Protein Albumin Triglycerides Cholesterol LDL Cholesterol Direct VLDL Cholesterol HDL Cholesterol TSH Free T4 Urine Color Urine Appearance Urine pH Ur Specific [place] Urine Protein Urine Glucose (UA) Urine Ketones Urine Blood Urine Nitrite Urine Bilirubin Urine Urobilinogen Ur Leukocyte Esterase Urine WBC (Auto) Urine RBC (Auto) U Hyaline Cast (Auto) Squamous Epi Cells Auto Urine Mucus (Auto) Urine Ascorbic Acid Influenza A (RT-PCR) Influenza B (RT-PCR) RSV (RT-PCR) SARS-CoV-2 Rap RNA(RT-PCR) Chest X-Ray 02/29/20 17:54 IMPRESSION: Obscuration of the left hemidiaphragm which may be attributed to pleural effusion, atelectasis and/or infection. Cardiomegaly. Mild pulmonary vascular congestion. IMPRESSION/RECOMMENDATION: 1. Acute on chronic hypoxic respiratory failure: Continue BiPAP continue oxygen. Continue treatment of COPD and acute CHF. 2. Acute on chronic combined systolic and diastolic heart failure. We will increase the patient's Lasix to 40 mg IV every 12 hours since intake is much greater than output. Continue Entresto,and Toprol-XL. 3.Dilated cardiomyopathy with severely reduced LV ejection fraction of 25% 30% by ech. Earlier in August her LV ejection fraction was severely reduced at 25%. Continue Lasix. Continue Toprol-XL and Entresto. 4. Asthma/COPD: Possible acute exacerbation. Continue anti-COPD medications. And antibiotics. 5. Chronic kidney disease stage III: Avoid nephrotoxic drugs. 6. Hypertension: Blood pressure well controlled. 7. Diabetes mellitus with diabetic nephropathy.. 8. Obstructive sleep apnea by history. Continue CPAP at night 9. History of AICD placement. No firing of AICD. Medications reviewed. Continue Lasix Entresto and beta-vianey. Would restrict the patient's total intake in 24-hour to 1200 mL per each 24-hour.. Medical regimen and management plan discussed with Dr. Fischer. Medical decision making is of high complexity. 60 minutes spent on this patient with more than 50% of the time spent in direct patient care. Will follow.
--- NOTE | 2020-03-04 23:00 | PDOC PROGRESS REPORT ---
Subjective Date:: 03/04/20 Subjective:: Patient is alert, she is improving Reason For Visit: ACUTE SYSTOLIC HEART FAILURE Physical Exam Vital Signs: Temp Pulse Resp BP Pulse Ox 97.8 F 69 20 120/77 100 03/04/20 20:01 03/04/20 19:52 03/04/20 19:52 03/04/20 19:52 03/04/20 19:52 Intake & Output 03/03/20 03/04/20 03/05/20 06:59 06:59 06:59 Intake Total 1020 1823 1230 Output Total 654 420 2689 Balance 345 1123 -370 Weight 95.1 kg 98.7 kg General appearance: PRESENT: no acute distress Eye exam: PRESENT: PERRLA Respiratory exam: PRESENT: clear to auscultation rodrigue Cardiovascular exam: PRESENT: +S1, +S2 GI/Abdominal exam: PRESENT: soft Results Laboratory Results: 03/03/20 06:47 03/02/20 06:02 02/29/20 02/29/20 03/01/20 17:20 17:20 09:09 Creatine Kinase 324 H CK-MB (CK-2) Troponin I 0.035 NT-Pro-B Natriuret Pep 75254 H 03/01/20 03/01/20 03/01/20 09:09 14:56 14:56 Creatine Kinase 297 H CK-MB (CK-2) 7.96 H 9.02 H Troponin I 0.023 0.029 NT-Pro-B Natriuret Pep 03/01/20 03/01/20 21:03 21:03 Creatine Kinase 266 H CK-MB (CK-2) 7.84 H Troponin I 0.025 NT-Pro-B Natriuret Pep Impressions: Chest X-Ray 02/29/20 17:54 IMPRESSION: Obscuration of the left hemidiaphragm which may be attributed to pleural effusion, atelectasis and/or infection. Cardiomegaly. Mild pulmonary vascular congestion. 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
[2020-03-04] MEDS ORDERED: FUROSEMIDE INJ/PF 40 MG/4 ML SDV IV ONE (23:45)
[2020-03-05] MEDS: PANTOPRAZOLE SODIUM 40 MG TABLET.DR PO SCH (05:58)
[2020-03-05] MEDS: GABAPENTIN 400 MG CAPSULE PO SCH ×3 (05:58→21:17)
[2020-03-05] MEDS: SACUBITRIL/VALSARTAN 97 MG/103 MG TABLET PO SCH ×2 (05:58→17:03)
[2020-03-05] MEDS: INSULIN LISPRO 100 UNIT/ML 3 ML VIAL SUBCUT SCH ×6 (08:48→21:17)
[2020-03-05] MEDS: METOPROLOL SUCCINATE 50 MG TAB.SR.24H PO SCH (10:53)
[2020-03-05] MEDS: CLOPIDOGREL BISULFATE 75 MG TABLET PO SCH (10:53)
[2020-03-05] MEDS: APIXABAN 5 MG TABLET PO SCH ×2 (10:53→21:17)
[2020-03-05] MEDS: FUROSEMIDE INJ/PF 40 MG/4 ML SDV IV SCH ×2 (10:54→21:17)
[2020-03-05] MEDS: OXYCODONE-ACETAMINOPHEN 5-325 MG TABLET PO PRN (15:10)
--- NOTE | 2020-03-05 19:19 | Progress Note ---
Provider Note Provider Note: Cardiology PROGRESS NOTE by Dr. Radha Terry on 03/05/2020. SUBJECTIVE: The patient states she feels she is feeling better. There is no chest pain or discomfort. There is no PND orthopnea or shortness of breath. Her leg edema is much improved. Her AICD has been interrogated and this shows that the AICD is functioning well. There is no arrhythmias seen on the monitor. PHYSICAL EXAMINATION: The patient moderately obese. In no acute distress Selected Entries 03/05/20 11:10 Temperature 97.4 F Temperature Oral Source Pulse Rate 70 Respiratory 18 Rate Blood Pressure 115/59 L Blood Pressure 77 Mean BP Location Right Arm BP Position Supine O2 Sat by Pulse 98 Oximetry Oxygen Flow 3.00 Rate Oxygen Delivery Nasal Cannula Method HEAD: Is atraumatic normocephalic. EYES: Pupils equal round regular reactive light accommodation. Extraocular movements are normal there is no conjunctival pallor. There is no scleral icterus. EARS: Tympanic membranes are intact. External auditory canals are clear. NOSE: There is no deviated nasal septum. There is no inflammation of the nasal mucous membrane. MOUTH: Mucous membranes of mouth are moist. The patient's oral cavity is modified Mallampati classification class IV. There is no bleeding from the gums. THROAT: There is no exudates in the throat. There is no redness of the oropharynx. SKIN: There is no skin rashes or skin lesions. There is no particular ecchymosis. NECK: Is supple. There is no definite JVD. Carotids are equal there is no bruit. There is no lymphadenopathy. There is no accessory muscle respiration use. There is no goiter. Trachea central. LUNGS: There is diminished air entry prolonged expiration without any rhonchi rales or wheezing. On percussion there is hyperresonance throughout. On palpation there is no chest wall tenderness. HEART: S1-S2 is heard. There is no S3 gallop. There is no S4 gallop. There is murmur of mitral regurgitation and tricuspid regurgitation present. There is no rub. ABDOMEN: Is obese there is no paraspinal megaly. Bowel sounds are well heard. There is no tender areas of masses. EXTREMITIES: Both femoral pulses diminished. Leg pulses are diminished. There is no femoral bruits. There is trace pedal edema. There is no DVT or cellulitis. There is no calf tenderness. PUBLISHING DIRECTOR: Patient is conscious awake, oriented x3 with no focal deficits. PSYCHIATRIC: The patient judgment insight seems to be intact although the p atient's is slightly of slow mentation. The patient's 24-hour total intake is 1470 mL. The patient's output is good at 3200 mL. Labs- All tests 24 hr 03/04/20 03/05/20 03/05/20 21:17 07:18 11:10 POC Glucose 189 H 176 H 162 H 03/05/20 16:33 POC Glucose 245 H Chest X-Ray 02/29/20 17:54 IMPRESSION: Obscuration of the left hemidiaphragm which may be attributed to pleural effusion, atelectasis and/or infection. Cardiomegaly. Mild pulmonary vascular congestion. IMPRESSION/RECOMMENDATION: 1. Acute on chronic hypoxic respiratory failure: Continue BiPAP continue oxygen. Continue treatment of COPD and acute CHF. 2. Acute on chronic combined systolic and diastolic heart failure. We will increase the patient's Lasix to 40 mg IV every 12 hours since intake is much greater than output. Continue Entresto,and Toprol-XL. 3.Dilated cardiomyopathy with severely reduced LV ejection fraction of 25% 30% by echo of November 2018. Earlier in August her LV ejection fraction was severely reduced at 25%. Continue Lasix. Continue Toprol-XL and Entresto. 4. Asthma/COPD: Possible acute exacerbation. Continue anti-COPD medications. And antibiotics. 5. Chronic kidney disease stage III: Avoid nephrotoxic drugs. 6. Hypertension: Blood pressure well controlled. 7. Diabetes mellitus with diabetic nephropathy.. 8. Obstructive sleep apnea by history. Continue CPAP at night 9. History of AICD placement. No firing of AICD. Medications reviewed. Continue Lasix Entresto and beta-vianey. Would restrict the patient's total intake in 24-hour. 2400 mL per each 24-hour.. Medical regimen and management plan discussed with Dr. Fischer. Medical decision making is ofmoserate complexity. 40 minutes spent on this patient with more than 50% of the time spent in direct patient care.
--- NOTE | 2020-03-05 22:51 | PDOC PROGRESS REPORT ---
Subjective Date:: 03/05/20 Subjective:: Patient seen by the bedside Reason For Visit: ACUTE SYSTOLIC HEART FAILURE Physical Exam Vital Signs: Temp Pulse Resp BP Pulse Ox 98.4 F 70 20 114/73 99 03/05/20 19:46 03/05/20 19:46 03/05/20 19:46 03/05/20 19:46 03/05/20 19:46 Intake & Output 03/04/20 03/05/20 03/06/20 06:59 06:59 06:59 Intake Total 1823 1470 740 Output Total 700 3200 1000 Balance 1123 -8800 -260 Weight 98.7 kg 99.4 kg General appearance: PRESENT: no acute distress Eye exam: PRESENT: PERRLA Respiratory exam: PRESENT: clear to auscultation rodrigue Cardiovascular exam: PRESENT: +S1, +S2 GI/Abdominal exam: PRESENT: soft Neurological exam: PRESENT: alert Results Laboratory Results: 03/03/20 06:47 03/02/20 06:02 02/29/20 21:35 Blood Blood Culture - Final NO GROWTH IN 5 DAYS 02/29/20 20:40 Blood Blood Culture - Final NO GROWTH IN 5 DAYS 02/29/20 02/29/20 03/01/20 17:20 17:20 09:09 Creatine Kinase 324 H CK-MB (CK-2) Troponin I 0.035 NT-Pro-B Natriuret Pep 44177 H 03/01/20 03/01/20 03/01/20 09:09 14:56 14:56 Creatine Kinase 297 H CK-MB (CK-2) 7.96 H 9.02 H Troponin I 0.023 0.029 NT-Pro-B Natriuret Pep 03/01/20 03/01/20 21:03 21:03 Creatine Kinase 266 H CK-MB (CK-2) 7.84 H Troponin I 0.025 NT-Pro-B Natriuret Pep Impressions: Chest X-Ray 02/29/20 17:54 IMPRESSION: Obscuration of the left hemidiaphragm which may be attributed to pleural effusion, atelectasis and/or infection. Cardiomegaly. Mild pulmonary vascular congestion. Assessment & Plan - Diagnosis (1) Acute hypoxemic respiratory failure Is this a current diagnosis for this admission?: Yes Plan: Continue supplemental oxygen (2) Acute combined systolic (congestive) and diastolic (congestive) heart failure Is this a current diagnosis for this admission?: Yes (3) Type 2 diabetes mellitus with diabetic chronic kidney disease Qualifiers: Diabetes mellitus senior care insulin use: with senior care use Chronic kidney disease stage: stage 3 (moderate) Is this a current diagnosis for this admission?: Yes (4) Nephrotic syndrome Is this a current diagnosis for this admission?: Yes - Time Time Spent with patient: 25-34 minutes Level of Care: IMCU Medications reviewed and adjusted accordingly: Yes Anticipated discharge: Home Anticipated DC Timeframe: within 24 hours
[2020-03-06] MEDS: PANTOPRAZOLE SODIUM 40 MG TABLET.DR PO SCH (06:09)
[2020-03-06] MEDS: SACUBITRIL/VALSARTAN 97 MG/103 MG TABLET PO SCH (06:09)
[2020-03-06] MEDS: GABAPENTIN 400 MG CAPSULE PO SCH (06:09)
[2020-03-06] MEDS: INSULIN LISPRO 100 UNIT/ML 3 ML VIAL SUBCUT SCH ×2 (08:11)
[2020-03-06 08:49] VITALS: BP 129/70
--- NOTE | 2020-03-06 17:10 | PDOC TRANSFER SUMMARY ---
Impression - Admit/DC Date/PCP Admission Date/Primary Care Provider: 02/29/20 22:07 TRAVIS SUBRAMANIAN MD Discharge Date: 03/06/20 - Discharge Diagnosis (1) Acute hypoxemic respiratory failure Is this a current diagnosis for this admission?: Yes (2) Acute combined systolic (congestive) and diastolic (congestive) heart failure Is this a current diagnosis for this admission?: Yes (3) Type 2 diabetes mellitus with diabetic chronic kidney disease Is this a current diagnosis for this admission?: Yes (4) Nephrotic syndrome Is this a current diagnosis for this admission?: Yes (5) Permanent atrial fibrillation Is this a current diagnosis for this admission?: Yes - Additional Information Discharge Diet: Cardiac, Diabetic Discharge Activity: Activity As Tolerated, Balance Activity w/Rest, Weigh Daily Referrals: TRAVIS SUBRAMANIAN MD [Primary Care Provider] - 03/09/20 1:45 pm Prescriptions: RX: Sacubitril/Valsartan [Entresto 97 mg/103 mg Tablet] 1 tab PO Q12A #180 tablet Home Medications: Insulin Glargine/Lixisenatide [Soliqua 100 Unit-33 Mcg/ml Pen] 30 units SQ QAM 06/03/19 Oxycodone HCl/Acetaminophen [Oxycodone-Acetaminophen 10-325] 1 each PO QIDP PRN 06/04/19 Metoprolol Succinate [Toprol Xl 50 mg Tab.sr] 50 mg PO DAILY #90 tab.sr.24h 06/11/19 Spironolactone [Aldactone 25 mg Tablet] 25 mg PO DAILY #90 tablet 06/11/19 Apixaban [Eliquis 5 mg Tablet] 5 mg PO BID 02/03/20 Clopidogrel Bisulfate [Plavix 75 mg Tablet] 75 mg PO DAILY 02/03/20 Dapagliflozin Propanediol [Farxiga] 10 mg PO DAILY 02/03/20 Gabapentin [Neurontin 400 mg Capsule] 800 mg PO Q8 02/03/20 Insulin Aspart [Novolog Flexpen] 0 unit PO .SLIDING SCALE 02/03/20 Omeprazole 40 mg PO DAILY 02/03/20 Albuterol Sulfate [Ventolin Hfa 8 gm Mdi] 2 puff IH Q6HP PRN inhaler 02/06/20 Furosemide [Lasix 40 mg Tablet] 40 mg PO Q8H #90 tablet 02/06/20 Insulin Aspart [Novolog] 12 unit SQ BID 03/01/20 Sacubitril/Valsartan [Entresto 97 mg/103 mg Tablet] 1 tab PO Q12A #180 tablet 03/05/20 History of Present Illiness History of Present Illness: EDUARDA JARRELL is a 69 year old female, she has a history of ischemic cardiomyopathy, chronic systolic congestive heart failure, estimated ejection fraction left ventricle 20%, echo from 02/03/2020.She came to the emergency room for evaluation of shortness of breath, The arterial blood gas on FiO2 45%, pH 7.42, PO2 41.5, PCO2 33, bicarbonate 20.7 chest x-ray consistent with CHF. She was just recently admitted to this hospital for similar presentation, she is chronically on anticoagulant Eliquis for chronic atrial fibrillation, unlikely to have pulmonary embolism. She has type 2 diabetes mellitus complicated with nephrotic syndrome.She had a rapid SARS-CoV-2 infection, it was negative Hospital Course Hospital Course: She has chronic systolic heart failure, she was treated with furosemide intravenously. She was maintained on anti-CHF therapy, she supposed to be on Entresto, the medication that was reconciled by pharmacist did not include Entresto this raises question of medication adherence.She was seen in consultation by cardiology Dr. Daniel, the pacemaker and the AICD was interrogated, found to be in good working condition.She also have diabetes nephropathy with nephrotic syndrome there was associated third spacing, the combination of acute on chronic systolic heart failure and nephrotic syndrome is because of the acute hypoxemic farrah failure Physical Exam Vital Signs: Temp Pulse Resp BP Pulse Ox 98.6 F 78 19 129/70 H 98 03/06/20 08:34 03/06/20 08:34 03/06/20 08:34 03/06/20 08:34 03/06/20 08:34 Intake & Output 03/05/20 03/06/20 03/07/20 06:59 06:59 06:59 Intake Total 1470 980 Output Total 3200 1750 Balance -1730 -770 Weight 99.4 kg 95.7 kg General appearance: PRESENT: no acute distress Eye exam: PRESENT: PERRLA Respiratory exam: PRESENT: clear to auscultation rodrigue Cardiovascular exam: PRESENT: +S1, +S2 GI/Abdominal exam: PRESENT: soft Neurological exam: PRESENT: alert Results Laboratory Results: WBC 5.4 10^3/uL (4.0-10.5) 03/03/20 06:47 RBC 4.66 10^6/uL (3.72-5.28) 03/03/20 06:47 Hgb 12.1 g/dL (12.0-15.5) 03/03/20 06:47 Hct 39.5 % (36.0-47.0) 03/03/20 06:47 MCV 85 fl (80-97) 03/03/20 06:47 MCH 25.9 pg (27.0-33.4) L 03/03/20 06:47 MCHC 30.6 g/dL (32.0-36.0) L 03/03/20 06:47 RDW 18.6 % (11.5-14.0) H 03/03/20 06:47 Plt Count 183 10^3/uL (150-450) 03/03/20 06:47 Lymph % (Auto) 32.4 % (13-45) 03/03/20 06:47 [place] % (Auto) 11.5 % (3-13) 03/03/20 06:47 Eos % (Auto) 5.1 % (0-6) 03/03/20 06:47 Baso % (Auto) 0.5 % (0-2) 03/03/20 06:47 Absolute Neuts (auto) 2.7 10^3/uL (1.7-8.2) 03/03/20 06:47 Absolute Lymphs (auto) 1.8 10^3/uL (0.5-4.7) 03/03/20 06:47 Absolute Monos (auto) 0.6 10^3/uL (0.1-1.4) 03/03/20 06:47 Absolute Eos (auto) 0.3 10^3/uL (0.0-0.6) 03/03/20 06:47 Absolute Basos (auto) 0.0 10^3/uL (0.0-0.2) 03/03/20 06:47 Seg Neutrophils % 50.5 % (42-78) 03/03/20 06:47 PT 13.8 SEC (11.4-15.4) 03/01/20 09:09 INR 1.04 03/01/20 09:09 APTT 25.8 SEC (23.5-35.8) 03/01/20 09:09 Carbonic Acid 0.99 mmol/L (1.05-1.35) L 03/01/20 09:11 HCO3/H2CO3 Ratio 20:1 03/01/20 09:11 ABG pH 7.42 (7.35-7.45) 03/01/20 09:11 ABG pCO2 33.0 mmHg (35-45) L 03/01/20 09:11 ABG pO2 41.5 mmHg (80-100) L 03/01/20 09:11 ABG HCO3 20.7 mmol/L (20-24) 03/01/20 09:11 ABG Total CO2 21.7 mmol/L (21-25) 03/01/20 09:11 ABG O2 Saturation 78.4 % (94-98) L 03/01/20 09:11 ABG Base Excess -3.0 mmol/L 03/01/20 09:11 VBG pH 7.26 (7.30-7.42) L 02/29/20 17:20 VBG pCO2 57.1 mmHg (35-63) 02/29/20 17:20 VBG HCO3 25.1 mmol/L (20-32) 02/29/20 17:20 VBG Base Excess -2.8 mmol/L 02/29/20 17:20 FiO2 44% 03/01/20 09:11 Sodium 138.8 mmol/L (137-145) 03/02/20 06:02 Potassium 4.3 mmol/L (3.6-5.0) 03/02/20 06:02 Chloride 111 mmol/L (98-107) H 03/02/20 06:02 Carbon Dioxide 23 mmol/L (22-30) 03/02/20 06:02 Anion Gap 5 (5-19) 03/02/20 06:02 BUN 34 mg/dL (7-20) H 03/02/20 06:02 Creatinine 1.82 mg/dL (0.52-1.25) H 03/02/20 06:02 Est GFR ( Amer) 34 (>60) L 03/02/20 06:02 Est GFR (MDRD) Non-Af 28 (>60) L 03/02/20 06:02 Glucose 153 mg/dL (75-110) H 03/02/20 06:02 POC Glucose 245 mg/dL (70-110) H 03/06/20 07:43 Hemoglobin A1c % 8.5 % (4.7-6.0) H 03/02/20 06:02 Lactic Acid 1.4 mmol/L (0.7-2.1) 02/29/20 17:20 Calcium 8.8 mg/dL (8.4-10.2) 03/02/20 06:02 Magnesium 2.5 mg/dL (1.6-2.3) H 03/01/20 09:09 Total Bilirubin 0.6 mg/dL (0.2-1.3) 03/02/20 06:02 Direct Bilirubin 0.2 mg/dL (0.0-0.4) 03/02/20 06:02 Neonat Total Bilirubin Not Reportable 03/02/20 06:02 Neonat Direct Bilirubin Not Reportable 03/02/20 06:02 Neonat Indirect Bili Not Reportable 03/02/20 06:02 AST 23 U/L (14-36) 03/02/20 06:02 ALT 28 U/L (<35) 03/02/20 06:02 Alkaline Phosphatase 120 U/L (38-126) 03/02/20 06:02 Creatine Kinase 266 U/L (30-135) H 03/01/20 21:03 CK-MB (CK-2) 7.84 ng/mL (<4.55) H 03/01/20 21:03 Troponin I 0.025 ng/mL 03/01/20 21:03 NT-Pro-B Natriuret Pep 94101 pg/mL (<125) H 02/29/20 17:20 Total Protein 5.4 g/dL (6.3-8.2) L 03/02/20 06:02 Albumin 2.6 g/dL (3.5-5.0) L 03/02/20 06:02 Triglycerides 134 mg/dL (<150) 03/02/20 06:02 Cholesterol 245.75 mg/dL (0-200) H 03/02/20 06:02 LDL Cholesterol Direct 129 mg/dL (<100) H 03/02/20 06:02 VLDL Cholesterol 27.0 mg/dL (10-31) 03/02/20 06:02 HDL Cholesterol 73 mg/dL (>40) 03/02/20 06:02 TSH 0.52 uIU/mL (0.47-4.68) 03/01/20 09:09 Free T4 1.11 ng/dL (0.78-2.19) 03/01/20 09:09 Urine Color YELLOW 03/01/20 10:00 Urine Appearance SLIGHTLY-CLOUDY 03/01/20 10:00 Urine pH 6.0 (5.0-9.0) 03/01/20 10:00 Ur Specific [place] 1.022 03/01/20 10:00 Urine Protein >=500 mg/dL (NEGATIVE) H 03/01/20 10:00 Urine Glucose (UA) >=500 mg/dL (NEGATIVE) H 03/01/20 10:00 Urine Ketones NEGATIVE mg/dL (NEGATIVE) 03/01/20 10:00 Urine Blood SMALL (NEGATIVE) H 03/01/20 10:00 Urine Nitrite NEGATIVE (NEGATIVE) 03/01/20 10:00 Urine Bilirubin NEGATIVE (NEGATIVE) 03/01/20 10:00 Urine Urobilinogen NEGATIVE mg/dL (<2.0) 03/01/20 10:00 Ur Leukocyte Esterase NEGATIVE (NEGATIVE) 03/01/20 10:00 Urine WBC (Auto) 3 /HPF 03/01/20 10:00 Urine RBC (Auto) 2 /HPF 03/01/20 10:00 U Hyaline Cast (Auto) 1 /LPF 03/01/20 10:00 Squamous Epi Cells Auto 4 /HPF 03/01/20 10:00 Urine Mucus (Auto) RARE /LPF 03/01/20 10:00 Urine Ascorbic Acid NEGATIVE (NEGATIVE) 03/01/20 10:00 Influenza A (RT-PCR) NEGATIVE (NEGATIVE) 02/29/20 22:23 Influenza B (RT-PCR) NEGATIVE (NEGATIVE) 02/29/20 22:23 RSV (RT-PCR) NEGATIVE (NEGATIVE) 02/29/20 22:23 SARS-CoV-2 Rap RNA(RT-PCR) NEGATIVE (NEGATIVE) 02/29/20 22:23 02/29/20 02/29/20 03/01/20 17:20 17:20 09:09 CK-MB (CK-2) 7.96 H Troponin I 0.035 0.023 NT-Pro-B Natriuret Pep [id number] H 03/01/20 03/01/20 14:56 21:03 CK-MB (CK-2) 9.02 H 7.84 H Troponin I 0.029 0.025 NT-Pro-B Natriuret Pep Impressions: Chest X-Ray 02/29/20 17:54 IMPRESSION: Obscuration of the left hemidiaphragm which may be attributed to pleural effusion, atelectasis and/or infection. Cardiomegaly. Mild pulmonary vascular congestion. Stroke Is this a Stroke Patient?: No Acute Heart Failure Is this a Heart Failure Patient?: Yes Documentation of LVEF assessment?: Yes LVEF: LVEF Less Than or Equal to 35% Anticoagulant Therapy: Yes Discharged on Evidence-Based Beta Blockers: Yes Discharged on ARNI?: Yes Discharged on ARB?: N/A-Discharged on ARNI Discharged on ACEI?: N/A Discharged on ARNI For LVEF <35%, discharged on Aldosterone Antagonist?: Yes Follow-up Appointment scheduled within 7 days?: Yes
== END 2020-03-06 09:51 | disposition home or self-care (01) | DRG 291 ==
LOC: ER 17:17 → EH 22:07 → 3S 03-01 00:25
PROVIDERS: ADMIT Internal Medicine; ATTEND Internal Medicine
PROC: 5A09357 Assistance with Respiratory Ventilation, Less than 24 Consecutive Hours, Continuous Positive Airway Pressure (ICD-10-PCS; principal; 2020-02-29)
DX: I13.0 Hypertensive heart and chronic kidney disease with heart failure and stage 1 through stage 4 chronic kidney disease, or unspecified chronic kidney disease (principal); J96.01 Acute respiratory failure with hypoxia; I50.43 Acute on chronic combined systolic (congestive) and diastolic (congestive) heart failure; I48.21 Permanent atrial fibrillation; E78.00 Pure hypercholesterolemia, unspecified; J44.9 Chronic obstructive pulmonary disease, unspecified; E11.9 Type 2 diabetes mellitus without complications; F32.9 Major depressive disorder, single episode, unspecified; N18.30 Chronic kidney disease, stage 3 unspecified; E11.22 Type 2 diabetes mellitus with diabetic chronic kidney disease; E66.9 Obesity, unspecified; I25.5 Ischemic cardiomyopathy; G47.33 Obstructive sleep apnea (adult) (pediatric); Z20.828 Contact with and (suspected) exposure to other viral communicable diseases; Z68.36 Body mass index [BMI] 36.0-36.9, adult; Z79.4 Long term (current) use of insulin; Z79.891 Long term (current) use of opiate analgesic; Z79.02 Long term (current) use of antithrombotics/antiplatelets; Z95.810 Presence of automatic (implantable) cardiac defibrillator; Z99.89 Dependence on other enabling machines and devices
CPT/HCPCS: 36415; 36600; 71045; 80048; 80053; 80061; 80076; 81001; 82550; 82553; 82803; 82962; 83036; 83605; 83735; 83880; 84439; 84443; 84484; 85025; 85610; 85730; 87040; 87086; 93005; 93010; 94660; 96365; 96375; 99285; 0241U; C9803; J0456; J0696; J1815; J1940; J3490

== ENCOUNTER 2020-04-14 11:02 | Emergency (ER) | payer MEDICARE, OTHER, MEDICAID ==
[2020-04-14 12:05] LABS: ABSOLUTE EOSINOPHILS # (AUTO) 0.1 10^3/uL (0.0-0.6); ABSOLUTE MONOCYTES (AUTO) 0.5 10^3/uL (0.1-1.4); ABSOLUTE NEUT (AUTO) 2.6 10^3/uL (1.7-8.2); BASOPHILS % (AUTO) 0.5 % (0-2); EOSINOPHILS % (AUTO) 2.7 % (0-6); HEMATOCRIT 44.2 % (36.0-47.0); HEMOGLOBIN 13.7 g/dL (12.0-15.5); LYMPHOCYTES % (AUTO) 37.5 % (13-45); MEAN CORPUSCULAR HEMOGLOBIN 25.5 pg (27.0-33.4); MEAN CORPUSCULAR VOLUME 82 fl (80-97); PLATELET COUNT 209 10^3/uL (150-450); RED BLOOD COUNT 5.37 10^6/uL (3.72-5.28); RED CELL DISTRIBUTION WIDTH 19.1 % (11.5-14.0); SEGMENTED NEUTROPHILS % (AUTO) 50.3 % (42-78); TOTAL CELLS COUNTED % (AUTO) 100 %; WHITE BLOOD COUNT 5.2 10^3/uL (4.0-10.5)
--- NOTE | 2020-04-14 12:44 | RADIOLOGY REPORT (SQ) ---
EXAM DESCRIPTION: CHEST SINGLE VIEW IMAGES COMPLETED DATE/TIME: 04/14/2020 9:06 am REASON FOR STUDY: dyspnea / edema COMPARISON: 02/29/2020 EXAM PARAMETERS: NUMBER OF VIEWS: One view. TECHNIQUE: Single frontal radiographic view of the chest acquired. RADIATION DOSE: NA LIMITATIONS: External leads partially obscuring underlying structures. Patient body habitus. FINDINGS: LUNGS AND PLEURA: Bibasilar opacities, left greater than right which appears similar to pr ior examination. Left pleural effusion again demonstrated. No pneumothorax. MEDIASTINUM AND HILAR STRUCTURES: No masses. Contour normal. HEART AND VASCULAR STRUCTURES: Stable cardiomegaly and central vascular prominence. BONES: No acute findings. HARDWARE: Left infraclavicular generator pack and pacing leads are unchanged. OTHER: No other significant finding. IMPRESSION: No significant change in basilar opacities, left greater than right and left pleural eff usion. Cardiomegaly and central vascular prominence is also stable. TECHNICAL DOCUMENTATION: JOB ID: [id number] 2010 [employer]- All Rights Reserved Reading location - IP/workstation name: [id number]
--- NOTE | 2020-04-14 13:37 | ER Document Report ---
ED General - General Chief Complaint: Shortness Of Breath Stated Complaint: DIFFICULTY BREATHING Time Seen by Provider: 04/14/20 11:48 Primary Care Provider: TRAVIS SUBRAMANIAN MD [Primary Care Provider] - Follow up as needed Mode of Arrival: Medic Information source: Patient TRAVEL OUTSIDE OF THE [place] IN LAST 30 DAYS: No - HPI Notes: Patient arrives via ambulance for shortness of breath. Patient's home health nurse called the ambulance stating that patient was short of breath. Patient states that she does not feel short of breath and that she feels "fine". She states she did not want the ambulance to be called. She says the main thing she has noticed is that she has had some swelling in her right leg and foot and that she has had trouble using her walker due to the swelling. She states she does not feel more short of breath than she usually does. She states she wears 3 L at home all the time and has not had to change this. She denies any new cough or congestion. No new pain. - Related Data Allergies/Adverse Reactions: No Known Allergies Allergy (Verified 04/14/20 11:10) Home Medications: gabapentin. metoprolol. entresto. farxiga. furosemide. novolog. soliqua. eliquis. omeprazole. oxycodone/acetaminophen. clopidogrel Past Medical History - General Information source: Patient - Social History Smoking Status: Former Smoker Frequency of alcohol use: None Drug Abuse: None Family History: CAD, DM, Hypertension Patient has homicidal ideation: No - Past Medical History Cardiac Medical History: Reports: Hx Atrial Fibrillation, Hx Congestive Heart Failure, Hx Hypercholesterolemia, Hx Hypertension Pulmonary Medical History: Reports: Hx Asthma, Hx COPD Denies: Hx Tuberculosis Neurological Medical History: Denies: Hx Seizures Endocrine Medical History: Reports: Hx Diabetes Mellitus Type 2. Denies: Hx Diabetes Mellitus Type 1, Hx Hyperthyroidism, Hx Hypothyroidism Renal/ Medical History: Denies: Hx Peritoneal Dialysis GI Medical History: Denies: Hx Cirrhosis, Hx Crohn's Disease, Hx Hepatitis, Hx Ulcerative Colitis Musculoskeletal Medical History: Reports Hx Arthritis, Denies Hx Gout Skin Medical History: Denies Hx Eczema, Denies Hx Psoriasis Psychiatric Medical History: Reports: Hx Depression Infectious Medical History: Denies: Hx Hepatitis Past Surgical History: Reports: Hx Appendectomy, Hx Section - x2, Hx Orthopedic Surgery - toe. Denies: Hx Hysterectomy - Immunizations Immunizations up to date: Yes Hx Diphtheria, Pertussis, Tetanus Vaccination: Yes - 2011 Hx Pneumococcal Vaccination: 12/17/10 Review of Systems - Review of Systems Constitutional: Weakness. denies: Chills, Fever Cardiovascular: denies: Chest pain, Palpitations Respiratory: denies: Cough, Short of breath -: Yes All other systems reviewed and negative Physical Exam - Vital signs Vitals: Temp Pulse Ox 98.5 F 96 04/14/20 11:03 04/14/20 11:03 Interpretation: Normal - General General appearance: Appears well, Alert - HEENT Head: Normocephalic, Atraumatic Eyes: Normal Pupils: PERRL - Respiratory Respiratory status: Tachypnea - Patient states she feels that this level of respiration is her usual. Chest status: Nontender Breath sounds: Decreased air movement Chest palpation: Normal - Cardiovascular Rhythm: Regular Heart sounds: Normal auscultation Murmur: No - Abdominal Inspection: Obese Distension: No distension Bowel sounds: Normal Tenderness: Nontender Organomegaly: No organomegaly - Back Back: Normal, Nontender - Extremities General upper extremity: Normal inspection, Nontender, Normal color, Normal ROM, Normal temperature General lower extremity: Nontender, Edema - Slightly greater on the right, No rmal temperature - Neurological Neuro grossly intact: Yes Cognition: Normal Orientation: AAOx4 [place] Coma Scale Eye Opening: Spontaneous [place] Coma Scale Verbal: Oriented [place] Coma Scale Motor: Obeys Commands Jr Coma Scale Total: 15 Speech: Normal Motor strength normal: LUE, RUE, LLE, RLE Sensory: Normal - Psychological Associated symptoms: Normal affect, Normal mood - Skin Skin Temperature: Warm Skin Moisture: Dry Skin Color: Normal Course - Re-evaluation Re-evalutation: 04/14/20 14:47 Patient was sent in by her home health nurse due to shortness of breath. However patient states she has never felt short of breath today in the not 1 to come to the hospital. While I am in the room she is slightly labored with a respiratory rate of 23 however she states that this is her normal and that she feels at her baseline breathing. She states "I feel fine". Patient's oxygen saturations are 97% to 99% while I was in the room just now. Patient is not tachycardic. Patient's BNP is elevated for her. However she is not hy pertensive and patient has a stable looking chest x-ray. Since she has been here she does not appear to have more labored breathing. I will give her an extra dose of Lasix. I did call and discussed the case with her primary care doctor Dr. Subramanian and he states he will see her in the office next week. I talked to her who also is in agreement with this plan. Given the Covid pandemic it does not appear that the benefits of admission would outweigh the risks of getting Covid. 04/14/20 14:49 - Vital Signs Vital signs: Temp Pulse Resp BP Pulse Ox 98.5 F 26 H 156/89 H 90 L 04/14/20 11:03 04/14/20 13:01 04/14/20 12:58 04/14/20 13:01 - Laboratory Results Result Diagrams: 04/14/20 11:28 04/14/20 13:45 Laboratory Results Interpreted: 04/14/20 04/14/20 04/14/20 11:28 13:45 13:45 RBC 5.37 H MCH 25.5 L MCHC 31.0 L RDW 19.1 H Chloride 111 H BUN 28 H Creatinine 1.69 H Est GFR ( Amer) 37 L Est GFR (MDRD) Non-Af 30 L Glucose 69 L AST 47 H ALT 45 H Alkaline Phosphatase 171 H NT-Pro-B Natriuret Pep 53416 H Total Protein 5.8 L Albumin 2.8 L Critical Laboratory Results Reviewed: No Critical Results - Radiology Results Critical Radiology Results Reviewed: No Critical Results - EKG Interpretation by Me Rate: Normal - 71 Rhythm: Other - paced [place]/QRS: IVCD Discharge - Discharge Clinical Impression: Acute exacerbation of CHF (congestive heart failure) Qualifiers: Heart failure type: systolic Qualified Code(s): I50.23 - Acute on chronic systolic (congestive) heart failure Condition: Stable Disposition: HOME, SELF-CARE Referrals: TRAVIS SUBRAMANIAN MD [Primary Care Provider] - Follow up in 1 week
--- NOTE | 2020-04-14 14:17 | RADIOLOGY REPORT (SQ) ---
EXAM DESCRIPTION: VENOUS UNILATERAL LOWER IMAGES COMPLETED DATE/TIME: 04/14/2020 2:08 pm REASON FOR STUDY: right lower swelling COMPARISON: None. TECHNIQUE: Dynamic and static roman scale and color images acquired of the left leg venous system. Se lected spectral images acquired with additional compression and augmentation maneuvers. The contralat eral common femoral vein and saphenofemoral junction were also imaged. Images stored on PACS. LIMITATIONS: None. FINDINGS: COMMON FEMORAL: Normal phasicity, compression and augmentation. No visualized echogenic ma terial on roman scale. No defects on color images. FEMORAL: Normal compression and augmentation. No visualized echogenic material on roman scale. No defe cts on color images. POPLITEAL: Normal compression, augmentation. No visualized echogenic material on roman scale. No defec ts on color images. CALF VESSELS: Normal compression, augmentation. No visualized echogenic material on roman scale. No de fects on color images. GSV and SSV: Normal compression, augmentation. No visualized echogenic material on roman scale. No def ects on color images. ANY DEEP VENOUS INSUFFICIENCY: No. ANY EVIDENCE OF POPLITEAL CYST: No. OTHER: No other significant finding. CONTRALATERAL COMMON FEMORAL VEIN AND SAPHENOFEMORAL JUNCTION: Normal phasicity, compression and augmentation. No visualized echogenic material on roman scale. No de fects on color images. IMPRESSION: NO EVIDENCE DVT OR SVT IN THE LEFT LEG. COMMENT: Preliminary report was called by the technologist to the referring clinician's office at t he time of the exam. TECHNICAL DOCUMENTATION: JOB ID: [id number] 2010 [employer]- All Rights Reserved Reading location - IP/workstation name: [email or web address]
[2020-04-14 14:23] LABS: ALBUMIN 2.8 g/dL (3.5-5.0); ALKALINE PHOSPHATASE 171 U/L (38-126); ASPARTATE AMINO TRANSFERASE 47 U/L (14-36); BILIRUBIN,DIRECT 0.2 mg/dL (0.0-0.4); BILIRUBIN,TOTAL 0.6 mg/dL (0.2-1.3); BLOOD UREA NITROGEN 28 mg/dL (7-20); CALCIUM 8.6 mg/dL (8.4-10.2); CARBON DIOXIDE 27 mmol/L (22-30); CHLORIDE 111 mmol/L (98-107); POTASSIUM 3.7 mmol/L (3.6-5.0); TOTAL PROTEIN 5.8 g/dL (6.3-8.2)
[2020-04-14 14:25] LABS: GLUCOSE 69 mg/dL (75-110)
[2020-04-14] MEDS ORDERED: FUROSEMIDE INJ/PF 40 MG/4 ML SDV IV ONE (14:36)
[2020-04-14] MEDS ORDERED: FUROSEMIDE INJ/PF 40 MG/4 ML SDV IM ONE (14:45)
[2020-04-14 14:51] LABS: ANION GAP 4 (5-19)
[2020-04-14 15:18] VITALS: BP 145/82
--- NOTE | 2020-04-14 17:40 | EKG REPORT ---
SEVERITY:- ABNORMAL ECG - ATRIAL-SENSED VENTRICULAR-PACED RHYTHM : Confirmed by: Cullen Bautista MD 14-Apr-2020 17:39:42
== END 2020-04-14 15:18 | disposition home or self-care (01) ==
LOC: ER 11:02
DX: I11.0 Hypertensive heart disease with heart failure (principal); I50.23 Acute on chronic systolic (congestive) heart failure; R06.02 Shortness of breath; I48.91 Unspecified atrial fibrillation; E78.00 Pure hypercholesterolemia, unspecified; E11.9 Type 2 diabetes mellitus without complications
CPT/HCPCS: 93005; 99285; 96372; 36415; 85025; 80053; 83880; 93971; 71045; 93010; J1940